=== PATIENT | male | born 1945 | race Caucasian/White ===

== ENCOUNTER → 2020-03-12 12:30 | Outpatient (BNVA) | payer MEDICARE, OTHER, SELFPAY | PROVIDERS: PCP Internal Medicine; Referring Provider Internal Medicine; Visit Provider Internal Medicine Cardiovascular Disease | DX: I25.10 Atherosclerotic heart disease of native coronary artery without angina pectoris (principal); I42.8 Other cardiomyopathies; Z98.61 Coronary angioplasty status | CPT/HCPCS: 99214 ==

== ENCOUNTER 2020-03-28 08:22 | Outpatient (REF) | payer SELFPAY | END 2020-03-28 08:23 | disposition home or self-care (01) | LOC: HO.HAP 08:22 | PROVIDERS: PCP Internal Medicine; Referring Provider Internal Medicine; Visit Provider Internal Medicine | DX: Z46.1 Encounter for fitting and adjustment of hearing aid (principal) | CPT/HCPCS: 92700 ==

== ENCOUNTER → 2020-05-14 12:47 | Outpatient (BNVA) | payer MEDICARE, OTHER, SELFPAY | PROVIDERS: PCP Internal Medicine; Visit Provider Internal Medicine Cardiovascular Disease | DX: I25.10 Atherosclerotic heart disease of native coronary artery without angina pectoris (principal); I10 Essential (primary) hypertension; Z98.61 Coronary angioplasty status; I49.3 Ventricular premature depolarization | CPT/HCPCS: 99212 ==

== ENCOUNTER 2020-06-04 13:19 | Outpatient (REF) | payer MEDICARE, OTHER, SELFPAY ==
--- NOTE | 2020-06-05 10:07 | MHC.AU.P13 ---
Adult Audiological Evaluation Date of Visit: 06/04/20 Reason for Appointment: Long-standing history of mixed hearing loss. Patient arrives to determine if there has been a change in hearing. Previous Hearing Test Results: At this clinic on 05/14/2019- Moderately-severe to profound mixed hearing loss bilaterally Ear History: Recent Ear Drainage: None Reported Recent Ear Pain: None Reported Family History of Hearing Loss?: Yes Previous Ear Surgery: Tympanic membrane repair Blocked/Full Sensation in Ear(s): None Reported Medical History: Medical History: Diabetes Hearing Instrument History- Right Ear: Child Welfare Counselor: Phonak Model: [place] SP Serial Number: [id number] Battery Size: 13 Dispensed By: [facility] Hearing Instrument History- Left Ear: Child Welfare Counselor: Phonak Model: Jennifer SP Serial Number: [id number] Battery Size: 13 Dispensed By: [facility] Otoscopy: Right Ear: Unremarkable Left Ear: Unremarkable Tympanometry: Right Ear: Non-compliant Middle Ear System (Type B) Left Ear: Non-compliant Middle Ear System (Type B) Hearing Evaluation: Transducer(s) Used: Insert Earphones Method: Conventional Audiometry Stimuli Used: Pure Tones Right Ear: Description of Hearing: Moderately-severe to profound mixed hearing loss Left Ear: Description of Hearing: Moderately-severe to profound mixed hearing loss Speech Recognition Threshold (SRT): Method Used: Recorded Lists Stimuli Used: Spondee Words Right Ear: 70 dBHL Left Ear: 65 dBHL Word Discrimination: Method: Recorded Lists Word Lists Used: NU-6 Right Ear: 84% at 95 dBHL Left Ear: 96% at 100 dBHL Most Comfortable Level (MCL): Right Ear: 95 dBHL Left Ear: 100 dBHL Comparison: Compared to most recent evaluation: Slight decreases noted around 1-6 kHz bilaterally Recommendations: Audiological re-evaluation in one year. Patient is pleased with his current hearing aid programming; therefore, hearing aid programming was not adjusted today. Hearing aid maintenance was performed.Tubing was in good condition on the right instrument, and was not replaced. Tubing on the left instrument was partially clogged, and was replaced. Hearing aid maintenance in 6 months, or sooner if needed. Diagnosis: Primary Diagnosis: H90.6 Mixed Hearing Loss, Bilateral Services Performed: Services Performed: Comprehensive Audiological Evaluation (CPT 04216), Tympanometry (CPT 15255) Signature: Provider: Kingston Lloyd, CCC-A
== END 2020-06-04 13:20 | disposition home or self-care (01) ==
LOC: HO.SH 13:19
PROVIDERS: Visit Provider Internal Medicine
DX: H90.6 Mixed conductive and sensorineural hearing loss, bilateral (principal)
CPT/HCPCS: 92557; 92567

== ENCOUNTER → 2020-09-17 13:04 | Outpatient (BNVA) | payer MEDICARE, OTHER, SELFPAY | PROVIDERS: PCP Internal Medicine; Visit Provider Internal Medicine Cardiovascular Disease | DX: I25.10 Atherosclerotic heart disease of native coronary artery without angina pectoris (principal); I49.3 Ventricular premature depolarization; I10 Essential (primary) hypertension | CPT/HCPCS: 99212 ==

== ENCOUNTER 2020-12-24 11:13 | Outpatient (REF) | payer MEDICARE, OTHER, SELFPAY ==
[2020-12-24 13:56] LABS: MANUAL DIFF FLAG NO
[2020-12-24 14:04] LABS: Basophils Percent Auto 0.4 % (0-2); Eosinophils Absolute Auto 0.3 X10*3/uL (0.0-0.4); Eosinophils Percent Auto 5.2 % (0-4); Hematocrit 38.1 % (42-52); Hemoglobin 11.9 g/dl (14.0-18.0); Imm Gran Abs Auto 0.02 X10*3/uL (0.00-0.03); Imm Gran Pct Auto 0.4 % (0.0-0.4); Immature Retic Fraction 10.7 % (2.3-13.4); Lymphocytes Absolute Auto 0.7 X10*3/uL (1.2-4.9); Lymphocytes Percent Auto 14.9 % (20-40); Mean Corpuscular HGB Conc 31.2 g/dl (31.0-36.0); Mean Corpuscular Hemoglobin 29.6 pg (27.0-33.0); Mean Corpuscular Volume 94.8 fL (80-98); Mean Platelet Volume 11.1 fL (9.4-12.4); Monocytes Absolute Auto 0.4 X10*3/uL (0.1-1.2); Monocytes Percent Auto 8.7 % (2-11); Neutrophils Absolute Auto 3.5 X10*3/uL (2.0-8.3); Neutrophils Percent Auto 70.4 % (45-73); Platelet Count 240 X10*3/uL (160-400); Red Blood Count 4.02 X10*6/uL (4.60-5.80); Red Cell Distribution Width 14.5 % (11.0-16.0); Retic HGB Equivalent 33.3 pg (30.0-35.0); Reticulocyte Percent 1.1 % (0.5-1.8); Reticulocytes Absolute 0.044 X10*6/uL (0.026-0.095)
[2020-12-24 14:13] LABS: Estimated Average Glucose 123 mg/dL; Hemoglobin A1c % 5.9 %
[2020-12-24 14:15] LABS: Creatinine Urine 131.74 mg/dL; Microalbum/Creatinine Ratio Ur 8.3 ug/mg cr
[2020-12-24 14:25] LABS: Alanine Aminotransferase 15 U/L (0-40); Albumin Level 4.1 g/dL (3.5-5.0); Alkaline Phosphatase 51 U/L (39-117); Anion Gap 12 (12-20); Aspartate Amino Transferase 23 U/L (5-37); Bilirubin Total 0.5 mg/dL (0.0-1.0); Blood Urea Nitrogen 21 mg/dL (9-16); Calcium 9.5 mg/dL (8.4-10.2); Carbon Dioxide 26 mmol/L (22-29); Chloride 106 mmol/L (96-108); Cholesterol 132 mg/dL; Estimated Glomerular Filt Rate 47; Glucose Random 89 mg/dL (60-115); HDL Cholesterol 45 mg/dL; Iron 64 mcg/dL (45-160); LDL Cholesterol Calculated 68 mg/dl; Percent Iron Saturation 17 % (15-50); Potassium 4.7 mmol/L (3.3-5.1); Sodium 139 mmol/L (135-145); Total Iron Binding Capacity 366 mcg/dL (228-428); Total Protein 6.2 g/dL (6.5-8.0); Triglycerides 99 mg/dL; Unsaturated Iron Binding 302 ug/dL
[2020-12-24 14:37] LABS: Ferritin 61 ng/mL (20-250); Free T4 (Free Thyroxine) 0.98 ng/dL (0.71-1.85); Thyroid Stimulating Hormone 0.68 uIU/mL (0.32-4.0)
[2020-12-24 14:54] LABS: Folate > 20.0 ng/mL (> or = 4.0); Vitamin B12 384 pg/mL (200-900)
== END 2020-12-24 11:14 | disposition home or self-care (01) ==
LOC: HO.HMGCLDS 11:13
PROVIDERS: PCP Internal Medicine; Visit Provider Internal Medicine
DX: E78.00 Pure hypercholesterolemia, unspecified (principal); E11.65 Type 2 diabetes mellitus with hyperglycemia; I10 Essential (primary) hypertension
CPT/HCPCS: 36415; 80053; 80061; 82043; 82607; 82728; 82746; 83036; 83540; 84439; 84443; 85025; 85045

== ENCOUNTER 2021-01-21 08:20 | Outpatient (REF) | payer MEDICARE, OTHER, SELFPAY ==
[2021-01-21 09:48] LABS: COVID-19 Test Positive (Negative)
== END 2021-01-21 08:21 | disposition home or self-care (01) ==
LOC: HO.LAB 08:20
PROVIDERS: PCP Internal Medicine; Visit Provider Internal Medicine
DX: Z20.822 Contact with and (suspected) exposure to COVID-19 (principal)
CPT/HCPCS: 36415; 87635; C9803

== ENCOUNTER 2021-01-30 12:41 | Outpatient (REF) | payer MEDICARE, OTHER, SELFPAY ==
[2021-01-30 12:59] LABS: COVID-19 Test Positive (Negative)
== END 2021-01-30 12:42 | disposition home or self-care (01) ==
LOC: HO.LAB 12:41
PROVIDERS: PCP Internal Medicine; Visit Provider Internal Medicine
DX: Z20.822 Contact with and (suspected) exposure to COVID-19 (principal)
CPT/HCPCS: 36415; 87635; C9803

== ENCOUNTER 2021-02-03 08:03 | Outpatient (REF) | payer MEDICARE, OTHER, SELFPAY ==
[2021-02-03 08:27] LABS: COVID-19 Test Positive (Negative)
== END 2021-02-03 08:04 | disposition home or self-care (01) ==
LOC: HO.LAB 08:03
PROVIDERS: PCP Internal Medicine; Visit Provider Internal Medicine
DX: Z20.822 Contact with and (suspected) exposure to COVID-19 (principal)
CPT/HCPCS: 36415; 87635; C9803

== ENCOUNTER → 2021-02-04 11:09 | Outpatient (BNVA) | payer MEDICARE, OTHER, SELFPAY | PROVIDERS: PCP Internal Medicine; Visit Provider Internal Medicine Cardiovascular Disease | DX: I25.10 Atherosclerotic heart disease of native coronary artery without angina pectoris (principal) | CPT/HCPCS: Q3014 ==

== ENCOUNTER 2021-02-20 07:55 | Outpatient (REF) | payer MEDICARE, OTHER, SELFPAY ==
--- NOTE | 2021-02-23 12:13 | MHC.AU.AHA ---
Adult Audiological Evaluation Date of Visit: 02/20/21 Tube Mounter Used: Not Applicable Reason for Appointment: Audiologic re-evaluation prior to obtaining new hearing aids per state regulation. Deondre also reports his states he is asking for speech to be repeated more often. Previous Hearing Test Results: 06/04/2020 [facility] Bilateral moderately-severe to profound mixed hearing loss. It is noted overall hearing thresholds had decreased 5-15 dB compared to testing performed on 05/14/2019. Ear History: Family History of Hearing Loss?: Yes History of Ear Wax Buildup: Yes Previous Ear Surgery: Tympanic membrane repair Medical History: Medical History: Diabetes, Heart Problems, High Blood Pressure Medication List: Vitamins D3 and B12, Folic Acid, Aspirin, Amlodipine, Atorvastatin, Clopidogrel, Fenofibrate, Pregabalin, Metformin, Pioglitazone Hearing Instrument History- Right Ear: Fur Grader: [place] Model: [place] SP Serial Number: [id number] Battery Size: 13 Repair Warranty: Dispensed By: [facility] Hearing Instrument History- Left Ear: Fur Grader: Phonak Model: [place] SP Serial Number: [id number] Battery Size: 13 Repair Warranty: Dispensed By: [facility] Otoscopy: Right Ear: Very dull tympanic membrane Left Ear: Very dull tympanic membrane Tympanometry: Tympanometry performed due to: History of middle ear dysfunction Right Ear: Non-compliant Middle Ear System (Type B) Left Ear: Non-compliant Middle Ear System (Type B) Hearing Evaluation: Transducer(s) Used: Circumaural Headphones Bone Conduction Method: Conventional Audiometry Stimuli Used: Pure Tones Right Ear: Description of Hearing: Moderately-severe to profound mixed hearing loss. Left Ear: Description of Hearing: Moderately-severe to profound mixed hearing loss. Speech Recognition Threshold (SRT): Method Used: Monitored Live Voice Stimuli Used: Spondee Words Right Ear: 50 dB HL Left Ear: 50 dB HL Word Discrimination: Method: Recorded Lists Word Lists Used: NU-6 Right Ear: 96% at 90 dB HL Left Ear: 92% at 90 dB HL Most Comfortable Level (MCL): Right Ear: 90 dB HL Left Ear: 90 dB HL Comparison: Compared to the most recent evaluation: Thresholds have improved bilaterally with stable speech understanding. Middle ear dysfunction persists bilaterally. Recommendations: - Follow-up with physician for cerumen removal. - Discussed trial period with binaural Phonak Audeo P 50-13T hearing aids. Deondre will schedule an appointment for a Hearing Aid Evaluation following cerumen removal to further discuss the recommended hearing aids and place the order. - Medical clearance from a physician is required before fitting. - Hearing aid maintenance performed today. - Hearing aid(s) reprogrammed with updated test results. - Audiological re-evaluation in one year. Will send a reminder card. Diagnosis: Primary Diagnosis: H90.6 Mixed Hearing Loss, Bilateral Secondary Diagnosis: H69.93 Unspecified Eustachian Tube Dysfunction, Bilateral Services Performed: Comprehensive Audiological Evaluation (CPT 91680) Tympanometry (CPT 73631) Signature: Provider: Kingston Kirkpatrick, CCC-A
--- NOTE | 2021-02-23 12:19 | MHC.AU.MED ---
Medical Clearance for Hearing Instrumentation Date: 02/23/21 Patient Name: Deondre Stein Date of : 1945 Primary Care Provider: Referring Provider: Elida Siddiqui MD We have seen your patient on 02/20/21 and have determined that they are a candidate for amplification (See accompanying report). Specifically, they would benefit from: Hearing aid use in both ears There is a statute that addresses Medical Evaluation Requirements prior to fitting a patient with a hearing aid. According to [place] statute 265 CMR:6.03(1), (a) General. Except as provided in 265 CMR 6.03(1)(b), a supervisor wool shearing shall not sell a hearing aid unless the prospective user has presented to the supervisor wool shearing a written statement signed by a licensed physician that states that the patient's hearing loss has been medically evaluated and the patient may be considered a candidate for a hearing aid. The medical evaluation must have taken place within the preceding six months. Please note: Due to the [place] Statute referenced above, we cannot accept a signature other than that of a licensed physician. TRACK REPAIR LABORER and PA signatures cannot be accepted. I am in agreement with the above recommendation. There is no medical contraindication for hearing instrumentation. Physician Signature Date Physician Name (Printed)
--- NOTE | 2021-02-23 12:24 | MHC.AU.HFU ---
Hearing Instrument Follow-Up- Binaural Date of Visit: 02/20/21 Right Ear: Card Mounter: Phonak Jennifer SP Serial Number: [id number] Repair Warranty: Battery Size: 13 Color: Beige Tubing: Tube lock Type of Mold: Microsonic skeleton Dispensed By: [facility] Left Ear: Card Mounter: Phonak Jennifer SP Serial Number: [id number] Repair Warranty: Battery Size: 13 Color: Beige Tubing: Tube lock Type of Mold: Microsonic skeleton mold Dispensed By: [facility] Follow-Up Summary: Cleaned hearing aids, microphones, and contacts. Changed tubes for both aids. Both amplifying well. Reprogrammed both aid to today's test results. *Advise cerumen removal by a physician. Sent medical clearance to PCP. *Discussed trial with binaural Phonak Audeo P 50-13T. Deondre will schedule HAE for after cerumen is removed for ear impressions and confirm order. Diagnosis Code(s): Primary Diagnosis: H90.6 Mixed Hearing Loss, Bilateral Secondary Diagnosis: H69.93 Unspecified Eustachian Tube Dysfunction, Bilateral Signature: Provider: Kingston Kirkpatrick, CCC-A
== END 2021-02-20 07:56 | disposition home or self-care (01) ==
LOC: HO.SH 07:55
PROVIDERS: Visit Provider Internal Medicine
DX: H90.6 Mixed conductive and sensorineural hearing loss, bilateral (principal); H69.93 Unspecified Eustachian tube disorder, bilateral
CPT/HCPCS: 92557; 92567

== ENCOUNTER 2021-03-02 09:21 | Outpatient (REF) | payer SELFPAY ==
--- NOTE | 2021-03-02 10:15 | MHC.AU.HAS ---
Hearing Aid Evaluation Date of Visit: 03/02/21 Historical Information: Description of Hearing: Bilateral moderately-severe to profound mixed hearing loss Current personal amplification information, if applicable: 2011 binaural Phonak Anderson SP BTEs with skeleton Microsonic earmolds Summary: Discussed hearing aid styles of BTE vs KEL aid, level of technology, and battery vs. rechargeable. Patient will trial the aids below. Took impressions of both ears without complication. Hearing Aid Prescription: Right ear: Filleter: Phonak Model: Audeo P 50-13T Battery Size: 13 Color: Champagne Gallery [employer] Museum Technician: #1 Power Type of Mold: Phonak Canal Lock C-Shell Left ear: Filleter: Phonak Model: Audeo P 50-13T Battery Size: 13 Color: Champagne [employer] Museum Technician: #1 Power Type of Mold: Phonak Canal Lock C-Shell Plan of Care: Patient wishes to purchase hearing aids as prescribed Action Taken/Action Needed: Earmold Impressions Taken Hearing Instrument Fitting to be scheduled when materials arrive Comments: Medical clearance signed electronically by PCP and in chart Primary Diagnosis: H90.6 Mixed Hearing Loss, Bilateral Secondary Diagnosis: H69.93 Unspecified Eustachian Tube Dysfunction, Bilateral Signature: Provider: Kingston Kirkpatrick, CCC-A
== END 2021-03-02 09:22 | disposition home or self-care (01) ==
LOC: HO.HAP 09:21
PROVIDERS: Visit Provider Internal Medicine
DX: Z46.1 Encounter for fitting and adjustment of hearing aid (principal); H69.93 Unspecified Eustachian tube disorder, bilateral
CPT/HCPCS: 92591

== ENCOUNTER 2021-03-20 08:55 | Outpatient (REF) | payer SELFPAY | END 2021-03-20 08:56 | disposition home or self-care (01) | LOC: HO.HAP 08:55 | PROVIDERS: Visit Provider Internal Medicine | DX: Z46.1 Encounter for fitting and adjustment of hearing aid (principal); H90.6 Mixed conductive and sensorineural hearing loss, bilateral; H69.93 Unspecified Eustachian tube disorder, bilateral | CPT/HCPCS: V5261 ==

== ENCOUNTER 2021-04-03 09:50 | Outpatient (REF) | payer SELFPAY ==
--- NOTE | 2021-04-03 12:20 | MHC.AU.HFU ---
Hearing Instrument Follow-Up- Binaural Date of Visit: 04/03/21 Right Ear: Blade Aligner: Phonak Model: Audeo P 50-13T Serial Number: [id number] Repair Warranty: 06/13/2024 Loss and Damage Warranty: 06/13/2024 Battery Size: 13 Color: Market Force Informationagne Engineering Administrator: #1 Power Type of Dome: Type of Mold: Phonak Canal Lock C-Shell # [id number] warranty 07/15/2021 Type of Wax Guard: CeruStop Dispensed By:[facility] Date of Fittin03/20/2021 Left Ear: Blade Aligner: Phonak Model: Audeo P 50-13T Serial Number: [id number] Repair Warranty: 06/13/2024 Loss and Damage Warranty: 06/13/2024 Battery Size: 13 Color: Market Force Informationagne Engineering Administrator: #1 Power Type of Dome: Type of Mold: Phonak Canal Lock C-Shell # [id number] warranty 07/15/2021 Type of Wax Guard: CeruStop Dispensed By: [facility] Date of Fittin03/20/2021 Follow-Up Summary: Two Week hearing aid follow-up. Patient reports overall he is doing well, just needs a few adjustments. 1) He is always increasing the volume 2 steps louder. - Increased overall gain for both aids 4 dB. 2) Left aid is not as loud and clear as the right. Increased the left aid to better match the right aid. Patient reports he is hearing OK, just the sound quality is different than right aid He wants to keep as set since he feels when both aids are on that he hears well. 3) Gets an echo when he speaks, particularly when reading out loud. Discussed the room acoustics will affect this echo sensation - Used [employer] for the Chkqyr-kn-Ttifj and Lxqzfkp-dc-Rlzga programs to decrease echo sensation 2 steps. 4) Paired aids to cell phone and practiced. Patient did not want to download the Xendo melvin at this time. Patient wants to keep the aids and will set up a payment plan for the balance. Recommendations: Hearing instrument follow-up or maintenance as needed. Please contact our clinic with any questions or concerns Diagnosis Code(s): Primary Diagnosis: H90.3 Bilateral Sensorineural Hearing Loss Secondary Diagnosis: H69.93 Unspecified Eustachian Tube Dysfunction, Bilateral Services Performed: GONSALEZ Non-Quantity Charges: HANC: NonBillable Event Signature: Provider: Kingston Kirkpatrick, RIC-A
== END 2021-04-03 09:51 | disposition home or self-care (01) ==
LOC: HO.HAP 09:50
PROVIDERS: Visit Provider Internal Medicine
DX: Z13.89 Encounter for screening for other disorder (principal)

== ENCOUNTER → 2021-04-08 13:32 | Outpatient (REF) | payer MEDICARE, OTHER, SELFPAY ==
--- NOTE | 2021-04-08 | ECG_ITS ---
Hook-up date: 2021-04-08 15:17:00 Duration: 43:30:00 Test Indications: PVC'S Medications: 99680 QRS complexes 02991 Ventricular ectopics which represent 15 % of total QRS comp. 349 Supraventricular ectopics which represent <1 % of total QRS comp. * Paced QRS complexs which represent % of total QRS comp. VENTRICULAR ECTOPY 32791 Isolated 5551 Bigeminal Cycles 333 Couplets 0 Runs 0 Beats in Runs 0 Beats LONGEST at 0 BPM at :: -- 0 Beats FASTEST at 0 BPM at :: -- SUPRAVENTRICULAR ECTOPY 303 Isolated 7 Couplets 7 Runs 32 Beats in Runs 9 Beats LONGEST at 141 BPM at 06:02:08 2021-04-09 5 Beats FASTEST at 166 BPM at 18:39:53 2021-04-08 HEART RATES 50 MIN at 00:05:43 2021-04-09 70 AVG 99 MAX at 14:15:50 2021-04-09 LONGEST RR 1.2800 secs at 22:28:38 2021-04-08 S-T LEVELS Channel 1 - 128 mm at 15:17:00 2021-04-08 - 128 mm at 15:17:00 2021-04-08 Channel 2 - 128 mm at 15:17:00 2021-04-08 - 128 mm at 15:17:00 2021-04-08 Channel 3 - 128 mm at 03:43:61 -- - 128 mm at 03:43:61 Basic rhythm Normal sinus rhythm No long pause or profound bradycardia Baseline BBB noted Frequent Premature ventricular complexes , 15% of total beats Occasional Premature atrial complexes Patient did not report any symptoms in the diary Referred By: Reji Jackson Overread By: CHRIS COLES MD
== END ==
LOC: HO.CARD 13:32
PROVIDERS: PCP Internal Medicine; Referring Provider Internal Medicine; Visit Provider Internal Medicine Cardiovascular Disease
DX: I25.10 Atherosclerotic heart disease of native coronary artery without angina pectoris (principal); I49.3 Ventricular premature depolarization; I10 Essential (primary) hypertension; Z79.899 Other long term (current) drug therapy
CPT/HCPCS: 93005; 93226; 99212

== ENCOUNTER 2021-05-01 08:51 | Outpatient (REF) | payer SELFPAY | END 2021-05-01 08:52 | disposition home or self-care (01) | LOC: HO.HAP 08:51 | PROVIDERS: Visit Provider Internal Medicine | DX: Z13.89 Encounter for screening for other disorder (principal) ==

== ENCOUNTER 2021-05-13 15:13 | Outpatient (REF) | payer SELFPAY | END 2021-05-13 15:14 | disposition home or self-care (01) | LOC: HO.HAP 15:13 | PROVIDERS: Visit Provider Internal Medicine | DX: Z13.89 Encounter for screening for other disorder (principal) ==

== ENCOUNTER 2021-05-25 10:23 | Outpatient (REF) | payer SELFPAY ==
--- NOTE | 2021-05-25 10:59 | MHC.AU.FUR ---
Hearing Instrument Follow-Up Date of Visit: 05/25/21 Right Ear: Tariff Publishing Agent: Phonak Model: Audeo P 50-13T Serial Number: [id number] Repair Warranty: 06/13/2024 Loss and Damage Warranty: 06/13/2024 Battery Size: 13 Color: Jonniee Dairy Nutritionist: #1 Power Type of Mold: Phonak Canal Lock C-Shell # [id number] warranty 07/15/2021 Type of Wax Guard: CeruStop Dispensed By: [facility] Date of Fittin03/20/2021 Follow-Up Summary: Right C-Shell continues to hurt when inserting and removing the mold on the outer right side to bottom of canal. Ground down three areas of slight protrusions on the mold. Patient reported the mold was easier to insert than before. Will try and schedule appointment if problem continues. Diagnosis Code(s): Primary Diagnosis: H90.3 Bilateral Sensorineural Hearing Loss Secondary Diagnosis: H69.93 Unspecified Eustachian Tube Dysfunction, Bilateral Services Performed: GONSALEZ Non-Quantity Charges: HANC: NonBillable Event Signature: Provider: Kingston Kirkaptrick, CCC-A
== END 2021-05-25 10:24 | disposition home or self-care (01) ==
LOC: HO.HAP 10:23
PROVIDERS: Visit Provider Internal Medicine
DX: Z13.89 Encounter for screening for other disorder (principal)

== ENCOUNTER 2021-06-05 13:03 | Outpatient (REF) | payer SELFPAY ==
--- NOTE | 2021-06-05 13:36 | MHC.AU.FUR ---
Hearing Instrument Follow-Up Date of Visit: 06/05/21 Right Ear: Transportation Engineering Technician: Phonak Model: Audeo P 50-13T Serial Number: [id number] Repair Warranty: 06/13/2024 Battery Size: 13 Color: Champagne Pony Edger: #1 Power Type of Mold: Phonak Canal Lock C-Shell # [id number] warranty 07/15/2021 Type of Wax Guard: CeruStop Dispensed By: [facility] Date of Fittin03/20/2021 Follow-Up Summary: Right C-Shell continues to cause pain when inserting and removing (harder to insert compared to left c-shell). Took new impression of the right ear without complication for another remake to reduce overall size, taper, and possibly change to step back vent as the left c-shell is. Sent current c-shell with impression and put a power #1 excavating supervisor with medium power dome of the right aid and ordered replacement for stock. Recommendations (Other): Schedule appointment when c-shell remake in. Diagnosis Code(s): Primary Diagnosis: H90.3 Bilateral Sensorineural Hearing Loss Secondary Diagnosis: H69.93 Unspecified Eustachian Tube Dysfunction, Bilateral Services Performed: GONSALEZ Non-Quantity Charges: HANC: NonBillable Event Signature Kingston Kirkpatrick, CCC-A
== END 2021-06-05 13:04 | disposition home or self-care (01) ==
LOC: HO.HAP 13:03
PROVIDERS: Visit Provider Internal Medicine
DX: Z13.89 Encounter for screening for other disorder (principal)

== ENCOUNTER 2021-06-22 12:53 | Outpatient (REF) | payer SELFPAY | END 2021-06-22 12:54 | disposition home or self-care (01) | LOC: HO.HAP 12:53 | PROVIDERS: Visit Provider Internal Medicine | DX: Z13.89 Encounter for screening for other disorder (principal) ==

== ENCOUNTER → 2021-07-06 14:21 | Outpatient (BNVA) | payer MEDICARE, OTHER, SELFPAY | PROVIDERS: PCP Internal Medicine; Referring Provider Internal Medicine; Visit Provider Internal Medicine Cardiovascular Disease | DX: I25.10 Atherosclerotic heart disease of native coronary artery without angina pectoris (principal); I49.3 Ventricular premature depolarization; I10 Essential (primary) hypertension | CPT/HCPCS: 99212 ==

== ENCOUNTER → 2021-07-13 14:44 | Outpatient (REF) | payer MEDICARE, OTHER, SELFPAY ==
--- NOTE | 2021-07-13 14:54 | CA_ITS ---
Transthoracic Echocardiogram Patient (Last, First, Middle): Deondre Stein A Gender: Male Date of : 1945 Age: 75 Procedure Date: 07/13/2021 Procedure Type: Transthoracic Echocardiogram Location: OP Height: 167.64 cm Weight: 79.38 kg BSA: 1.89 m2 Heart Rate: bpm BP: 126 / 64 mmHg Inside Sales Account Manager: CRISTOPHER Referring MD: Reji Jackson MD Symptoms: I25.10 - Atherosclerotic heart disease of [place] coronary... Study Quality: Fair Conclusions: - Normal left ventricular size, thickness, and systolic function. The visually estimated ejection fraction is between 55-60%. - Normal right ventricular cavity size and systolic function. - Patient appears to be in atrial fibrillation. Findings Left Ventricle Normal left ventricular size, thickness, and systolic function. The visually estimated ejection fraction is between 55-60%. There is no evidence of regional wall motion abnormalities. Diastolic function is indeterminate on the basis of available data. Right Ventricle Normal right ventricular cavity size and systolic function. Atria Mild biatrial enlargement. Aortic Valve Normal aortic valve structure and function. There is no aortic valve stenosis. There is no aortic valve regurgitation. Mitral Valve Normal mitral valve structure and function. There is no mitral valve regurgitation. There is no mitral valve stenosis. Pulmonic Valve The pulmonic valve is likely normal. Tricuspid Valve Normal tricuspid valve structure and function. There is trace tricuspid valve regurgitation. Normal right atrial pressure. There is no evidence of pulmonary hypertension. Great Vessels All visible segments of the aorta are normal in size. The visualized portions of the pulmonary artery and branches are normal. Venous The inferior vena cava is normal in size and collapses greater than 50% with inspiration. Pericardium/Pleural There is no evidence of pericardial effusion. Measurements 2D Linear Measurements IVSd: 0.78 0.6-0.9/0.6-1.0 cm LVIDd: 5.58 3.9-5.3/4.2-5.9 cm LVIDd Index: 2.95 2.4-3.2/2.2-3.1 cm/m2 LVIDs: 4.34 2.0-3.6 cm LVPWd: 1.21 0.7-1.1 cm Ao Root: 3.70 2.1-3.5 cm LA Diam: 3.50 2.7-3.8/3.0-4.0 cm LAIDs Index: 1.85 1.5-2.3 cm/m2 LV Mass: 269.74 67-162/88-224 g LV Mass Index: 142.72 43-95/49-115 g/m2 LVOT Diam: 2.20 3.0+(-)1.3 cm 2D Systolic Function EF 4C: 55.90 >55% EF 2C: 54.10 >55% EF BiP: 54.30 >55% Mitral Valve MV Pk E: 0.92 MV PK A: 0.76 MV Decel Time: 194.00 E/A: 1.20 E'Lateral: 8.27 E'Medial: 5.33 E/E' Med: 17.20 E/E' Lat: 11.10 PHT: 57.00 MVA PHT: 3.86 Decel [place]: 4.74 Aortic Valve AoV Pk [place]: 1.07 AoV Mn [place]: 0.79 AoV VTI: 0.28 AoV Pk Grad: 5.00 Aov Mn Grad: 3.00 JAMEL Cont.VTI: 3.70 LVOT LVOT Pk [place]: 1.04 LVOT Mn [place]: 0.73 LVOT VTI: 0.27 LVOT Pk Grad: 4.00 LVOT Mn Grad: 2.00 LVOT Diam: 2.20 LVOT Area: 3.80 Diastolic Function MV Pk E: 0.92 MV Pk A: 0.76 E/A: 1.20 E'Medial: 5.33 E/E' Med: 17.20 E' Laterial: 8.27 E/E' Lat: 11.10 Right Ventricle TAPSE (mm): 25.30 TVS' Clinton: 12.00 Tricuspid Valve TR Pk [place]: 2.41 TR Pk Grad: 23.00 RA Press: 3.00 RVSP: 26.00 Great Vessels Aorta Ao Root-2D: 3.70 2.0-3.7 cm Ao Asc: 3.10 2.1-3.4 cm Ao Arch: 3.20 Updated in Other Vendor System with Status of Final Reji Jackson MD electronically signed on 07/13/2021 7:08:37 PM with status of Final
[2021-07-13 15:29] LABS: Hematocrit 35.7 % (42.0-52.0); Hemoglobin 11.3 g/dl (14.0-18.0); Mean Corpuscular HGB Conc 31.7 g/dl (31.0-36.0); Mean Corpuscular Hemoglobin 29.1 pg (27.0-33.0); Mean Platelet Volume 11.4 fL (9.4-12.4); Platelet Count 231 X10*3/uL (160-400); Red Blood Count 3.88 X10*6/uL (4.60-5.80); Red Cell Distribution Width 14.4 % (11.0-16.0); White Blood Count 5.6 X10*3/uL (4.8-10.8)
[2021-07-13 15:36] LABS: INTERNATIONAL NORM RATIO 1.1 (0.9-1.1)
[2021-07-13 15:55] LABS: Anion Gap 11 (12-20); Blood Urea Nitrogen 28 mg/dL (9-16); Calcium 9.8 mg/dL (8.4-10.2); Carbon Dioxide 28 mmol/L (22-29); Chloride 109 mmol/L (96-108); Estimated Glomerular Filt Rate 40; Glucose Random 84 mg/dL (60-115); Potassium 4.5 mmol/L (3.3-5.1); Sodium 143 mmol/L (135-145)
== END ==
LOC: HO.CARD 14:44
PROVIDERS: PCP Internal Medicine; Visit Provider Internal Medicine Cardiovascular Disease
DX: I25.10 Atherosclerotic heart disease of native coronary artery without angina pectoris (principal)
CPT/HCPCS: 36415; 80048; 85027; 85610; 93306

== ENCOUNTER → 2021-07-16 15:22 | Outpatient (BNVA) | payer MEDICARE, OTHER, SELFPAY | PROVIDERS: PCP Internal Medicine; Referring Provider Internal Medicine; Visit Provider Internal Medicine Cardiovascular Disease | DX: Z13.89 Encounter for screening for other disorder (principal) ==

== ENCOUNTER → 2021-08-05 11:22 | Outpatient (REF) | payer MEDICARE, OTHER, SELFPAY ==
--- NOTE | 2021-08-05 11:25 | HM_ITS ---
Conclusion: 1. Patient was monitored for total period of 5 days and 23 hours 2. Baseline numbers normal sinus rhythm with average heart of 70 beats per minute 3. No significant pauses or bradycardia noted 4. Total of 114 3 beat salvos of nonsustained VT, with fastest at 184 beats per minute 5. Frequent episodes of supraventricular tachycardia with longest episode lasting 16 beats 6. Total of 151,025 PVCs accounting for 21.5% of total burden account for very frequent PVCs 7. No patient reported events MTDD
== END ==
LOC: HO.CARD 11:22
PROVIDERS: Visit Provider Internal Medicine
DX: I48.91 Unspecified atrial fibrillation (principal)
CPT/HCPCS: 93242

== ENCOUNTER 2021-08-27 15:57 | Outpatient (REF) | payer MEDICARE, OTHER, SELFPAY ==
[2021-08-27 16:36] LABS: Hemoglobin 11.1 g/dl (14.0-18.0); Mean Corpuscular HGB Conc 31.7 g/dl (31.0-36.0); Mean Corpuscular Hemoglobin 30.3 pg (27.0-33.0); Mean Corpuscular Volume 95.6 fL (80.0-98.0); Mean Platelet Volume 11.8 fL (9.4-12.4); Platelet Count 216 X10*3/uL (160-400); Red Blood Count 3.66 X10*6/uL (4.60-5.80); Red Cell Distribution Width 15.5 % (11.0-16.0); White Blood Count 5.5 X10*3/uL (4.8-10.8)
[2021-08-27 16:42] LABS: INTERNATIONAL NORM RATIO 1.1 (0.9-1.1); Prothrombin Time 12.2 SEC (9.9-13.0)
[2021-08-27 17:02] LABS: Anion Gap 9 (12-20); Blood Urea Nitrogen 30 mg/dL (9-16); Calcium 9.8 mg/dL (8.4-10.2); Carbon Dioxide 30 mmol/L (22-29); Chloride 109 mmol/L (96-108); Estimated Glomerular Filt Rate 37; Glucose Random 73 mg/dL (60-115); Potassium 5.1 mmol/L (3.3-5.1); Sodium 143 mmol/L (135-145)
[2021-08-27 17:22] LABS: TSH reflex Free T4 1.82 uIU/mL (0.32-4.0)
== END 2021-08-27 15:58 | disposition home or self-care (01) ==
LOC: HO.LAB 15:57
PROVIDERS: PCP Internal Medicine; Visit Provider Internal Medicine Cardiovascular Disease
DX: I25.10 Atherosclerotic heart disease of native coronary artery without angina pectoris (principal)
CPT/HCPCS: 36415; 80048; 84443; 85027; 85610

== ENCOUNTER → 2021-09-21 11:34 | Outpatient (BNVA) | payer MEDICARE, OTHER, SELFPAY | PROVIDERS: PCP Internal Medicine; Referring Provider Internal Medicine; Visit Provider Internal Medicine Cardiovascular Disease | DX: I25.10 Atherosclerotic heart disease of native coronary artery without angina pectoris (principal); I49.3 Ventricular premature depolarization; R06.00 Dyspnea, unspecified; Z79.899 Other long term (current) drug therapy | CPT/HCPCS: 93005; 99212 ==

== ENCOUNTER → 2021-09-28 08:51 | Outpatient (REF) | payer MEDICARE, OTHER, SELFPAY ==
--- NOTE | 2021-09-28 09:37 | ECG_ITS ---
Hook-up date: 2021-09-28 09:03:00 Duration: 46:19:00 Test Indications: VENTRICULAR PREMATURE DEPOLARIZA Medications: 01153 QRS complexes 735 Ventricular ectopics which represent <1 % of total QRS comp. 131 Supraventricular ectopics which represent <1 % of total QRS comp. * Paced QRS complexs which represent % of total QRS comp. VENTRICULAR ECTOPY 675 Isolated 30 Bigeminal Cycles 30 Couplets 0 Runs 0 Beats in Runs * Beats LONGEST at * BPM at :: -- * Beats FASTEST at * BPM at :: -- SUPRAVENTRICULAR ECTOPY 99 Isolated 4 Couplets 5 Runs 24 Beats in Runs 6 Beats LONGEST at 95 BPM at 08:21:19 2021-09-29 4 Beats FASTEST at 138 BPM at 04:47:54 2021-09-29 HEART RATES 58 MIN at 00:17:44 2021-09-29 65 AVG 90 MAX at 12:30:17 2021-09-28 LONGEST RR 1.3280 secs at 21:00:03 2021-09-28 S-T LEVELS Channel 1 - 128 mm at 09:03:00 2021-09-28 - 128 mm at 09:03:00 2021-09-28 Channel 2 - 128 mm at 09:03:00 2021-09-28 - 128 mm at 09:03:00 2021-09-28 Channel 3 - 128 mm at 02:82:21 -- - 128 mm at 02:82:21 Underlying rhythm is sinus with bundle branch block; Average ventricular rate 65/min; range 58-90/min; Occasional supraventricular ectopy; Occasional ventricular ectopy; isolated beats, some couplets, bigeminy; no signifiacnt runs; overall burden <1%; No pertinent symptoms in patient diary. Referred By: Reji Jackson Overread By: DOUGLAS CLEARY
== END ==
LOC: HO.CARD 08:51
PROVIDERS: PCP Internal Medicine; Referring Provider Internal Medicine; Visit Provider Internal Medicine Cardiovascular Disease
DX: I49.3 Ventricular premature depolarization (principal)
CPT/HCPCS: 93226; 93242

== ENCOUNTER → 2021-10-06 09:24 | Outpatient (BNVA) | payer MEDICARE, OTHER, SELFPAY | PROVIDERS: PCP Internal Medicine; Visit Provider Surgery Vascular Surgery | DX: I77.9 Disorder of arteries and arterioles, unspecified (principal) | CPT/HCPCS: 99202 ==

== ENCOUNTER 2021-10-28 08:28 | Outpatient (REF) | payer MEDICARE, OTHER, SELFPAY ==
--- NOTE | 2021-10-28 09:59 | PFT_ITS ---
Forced vital capacity 63%, FEV1 63%. FEV1/FVC ratio 72, normal. [id number] 61% and MVV is 56%. Post bronchodilator therapy, there is no significant change. Total lung capacity 65%. Residual volume 73%. Diffusion capacity 51% CONCLUSION: These findings are consistent with moderately severe restrictive pulmonary disorder. No obstructive airway disorder is noted. Compared to the results of 10/22/2016, the lung volumes are significantly decreased. Clinical correlation recommended. Leelee Willis MD MSB/MODL / [id number]
== END 2021-10-28 08:29 | disposition home or self-care (01) ==
LOC: HO.RESP 08:28
PROVIDERS: PCP Internal Medicine; Visit Provider Internal Medicine Cardiovascular Disease
DX: R06.00 Dyspnea, unspecified (principal)
CPT/HCPCS: 94060; 94727; 94729

== ENCOUNTER 2021-11-16 06:31 | Outpatient (REF) | payer MEDICARE, OTHER, SELFPAY ==
--- NOTE | ~2021-11-16 | CT_ITS ---
EXAMINATION: CT CHEST WITHOUT CONTRAST CLINICAL INFORMATION: History of COPD. COMPARISON: Left ribs and chest 05/08/2018. TECHNIQUE: 5 mm thin axial and reformatted 3 mm thin sagittal and coronal images of chest were obtained. DLP: 191 mGy-cm. FINDINGS: Lungs: Both lungs are well expanded and clear of acute pneumonic process. There is a 2 mm nodule centrally in the right upper lobe axial image 74/6, a 2 mm nodule right upper lobe peripherally based axial image 86/6. There are minimal atelectatic changes or scarring right lung base. No interstitial thickening, bronchiectasis or groundglass density seen. Mediastinum: The thyroid lobes are symmetric and normal. The central trachea and the bronchi are widely patent. The heart size and the great vessels are normal caliber. There are moderate coronary artery calcifications. No pericardial effusion seen. No abnormal size mediastinal or hilar lymph nodes visualized. Pleura: There is no pleural thickening, calcification or effusion. Axilla: No abnormal axillary lymph nodes seen. The chest wall is unremarkable. Osseous Structures: No aggressive lytic or sclerotic process seen. There is diffuse osteopenia. Upper Abdomen: There are a few punctate hypodense areas seen in the right hepatic lobe. Otherwise rest the visualized liver, spleen, pancreas, contracted gallbladder and bilateral adrenal glands unremarkable. CT/CT chest wo con - High Res IMPRESSION: Mild centrilobular emphysema with minimal scarring/atelectasis right lung base. 2 mm nodules in the right upper lobe. Nonsuspicious. No abnormal mediastinal mass or lymphadenopathy seen.
[2021-11-16 06:54] LABS: MANUAL DIFF FLAG NO
[2021-11-16 07:36] LABS: Basophils Percent Auto 0.6 % (0-2); Eosinophils Absolute Auto 0.3 X10*3/uL (0.0-0.4); Eosinophils Percent Auto 5.8 % (0-4); Hematocrit 37.7 % (42.0-52.0); Hemoglobin 11.6 g/dl (14.0-18.0); Imm Gran Abs Auto 0.03 X10*3/uL (0.00-0.03); Imm Gran Pct Auto 0.6 % (0.0-0.4); Lymphocytes Absolute Auto 0.7 X10*3/uL (1.2-4.9); Lymphocytes Percent Auto 14.2 % (20-40); Mean Corpuscular HGB Conc 30.8 g/dl (31.0-36.0); Mean Corpuscular Hemoglobin 28.5 pg (27.0-33.0); Mean Corpuscular Volume 92.6 fL (80.0-98.0); Mean Platelet Volume 10.9 fL (9.4-12.4); Monocytes Absolute Auto 0.4 X10*3/uL (0.1-1.2); Monocytes Percent Auto 8.6 % (2-11); Neutrophils Absolute Auto 3.6 x10*3/uL (2.0-8.3); Neutrophils Percent Auto 70.2 % (45-73); Platelet Count 249 X10*3/uL (160-400); Red Blood Count 4.07 X10*6/uL (4.60-5.80); Red Cell Distribution Width 15.5 % (11.0-16.0); White Blood Count 5.1 X10*3/uL (4.8-10.8)
[2021-11-16 08:21] LABS: Alanine Aminotransferase 38 U/L (0-40); Albumin Level 4.1 g/dL (3.5-5.0); Alkaline Phosphatase 62 U/L (39-117); Anion Gap 12 (12-20); Aspartate Amino Transferase 39 U/L (5-37); Bilirubin Total 0.3 mg/dL (0.0-1.0); Blood Urea Nitrogen 35 mg/dL (9-16); Calcium 9.1 mg/dL (8.4-10.2); Carbon Dioxide 26 mmol/L (22-29); Chloride 107 mmol/L (96-108); Cholesterol 143 mg/dL; Estimated Glomerular Filt Rate 34; Glucose Fasting 115 mg/dL (60-99); HDL Cholesterol 55 mg/dL; LDL Cholesterol Calculated 73 mg/dl; Potassium 4.5 mmol/L (3.3-5.1); Sodium 140 mmol/L (135-145); Total Protein 6.3 g/dL (6.5-8.0); Triglycerides 77 mg/dL
[2021-11-16 08:22] LABS: Estimated Average Glucose 126 mg/dL
[2021-11-16 08:32] LABS: Prostate Specific Antigen Scr 0.05 ng/mL (<0.05-4.0); Thyroid Stimulating Hormone 1.12 uIU/mL (0.32-4.0)
[2021-11-16 08:34] LABS: Free T4 (Free Thyroxine) 1.13 ng/dL (0.71-1.85)
[2021-11-16 08:54] LABS: Folate 18.8 ng/mL (> or = 4.0); Vitamin B12 363 pg/mL (200-900)
[2021-11-16 08:58] LABS: Creatinine Urine 42.19 mg/dL; Microalbum/Creatinine Ratio Ur 182.5 ug/mg cr
== END 2021-11-16 06:32 | disposition home or self-care (01) ==
LOC: HO.CT 06:31
PROVIDERS: Nurse Practitioner Family; Absent Provider Internal Medicine; PCP Internal Medicine; Visit Provider Internal Medicine Cardiovascular Disease
DX: Z00.00 Encounter for general adult medical examination without abnormal findings (principal); Z12.5 Encounter for screening for malignant neoplasm of prostate; J98.4 Other disorders of lung; E11.65 Type 2 diabetes mellitus with hyperglycemia; E78.00 Pure hypercholesterolemia, unspecified; I10 Essential (primary) hypertension
CPT/HCPCS: 36415; 71250; 80053; 80061; 82043; 82607; 82746; 83036; 84153; 84439; 84443; 85025

== ENCOUNTER → 2021-12-07 14:46 | Outpatient (BNVA) | payer MEDICARE, OTHER, SELFPAY | PROVIDERS: PCP Internal Medicine; Visit Provider Internal Medicine | DX: R06.00 Dyspnea, unspecified (principal); J98.4 Other disorders of lung; G47.33 Obstructive sleep apnea (adult) (pediatric); Z99.89 Dependence on other enabling machines and devices | CPT/HCPCS: 99202 ==

== ENCOUNTER 2021-12-21 | Outpatient (REF) | payer MEDICARE, OTHER, SELFPAY | END 2021-12-21 00:01 | disposition home or self-care (01) | LOC: CF | PROVIDERS: Visit Provider Internal Medicine Cardiovascular Disease | DX: R06.00 Dyspnea, unspecified (principal); I25.10 Atherosclerotic heart disease of native coronary artery without angina pectoris | CPT/HCPCS: 93005; 99212 ==

== ENCOUNTER 2021-12-21 09:49 | Outpatient (REF) | payer SELFPAY | END 2021-12-21 09:50 | disposition home or self-care (01) | LOC: HO.HAP 09:49 | PROVIDERS: Visit Provider Internal Medicine | DX: Z46.1 Encounter for fitting and adjustment of hearing aid (principal); R06.00 Dyspnea, unspecified; I25.10 Atherosclerotic heart disease of native coronary artery without angina pectoris | CPT/HCPCS: 93005; 99212; V5267 ==

== ENCOUNTER 2022-01-01 13:47 | Outpatient (REF) | payer MEDICARE, OTHER, SELFPAY | END 2022-01-01 13:48 | disposition home or self-care (01) | LOC: HO.HAP 13:47 | PROVIDERS: Visit Provider Internal Medicine | DX: Z13.89 Encounter for screening for other disorder (principal) ==

== ENCOUNTER 2022-02-12 11:22 | Outpatient (REF) | payer SELFPAY | END 2022-02-12 11:23 | disposition home or self-care (01) | LOC: HO.HAP 11:22 | PROVIDERS: Visit Provider Internal Medicine | DX: Z46.1 Encounter for fitting and adjustment of hearing aid (principal); H90.3 Sensorineural hearing loss, bilateral | CPT/HCPCS: V5264 ==

== ENCOUNTER → 2022-03-17 10:52 | Outpatient (REF) | payer MEDICARE, OTHER, SELFPAY | LOC: HO.SL 10:52 | PROVIDERS: PCP Internal Medicine; Visit Provider Internal Medicine | DX: Z13.89 Encounter for screening for other disorder (principal) ==

== ENCOUNTER 2022-04-14 09:00 | Outpatient (REF) | payer MEDICARE, OTHER, SELFPAY | END 2022-04-14 09:01 | disposition home or self-care (01) | LOC: HO.SH 09:00 | PROVIDERS: Visit Provider Internal Medicine | DX: Z01.118 Encounter for examination of ears and hearing with other abnormal findings (principal); H90.3 Sensorineural hearing loss, bilateral | CPT/HCPCS: 92557; 92567 ==

== ENCOUNTER → 2022-04-26 11:21 | Outpatient (REF) | payer MEDICARE, OTHER, SELFPAY | LOC: HO.SL 11:21 | PROVIDERS: Visit Provider Internal Medicine | DX: G47.33 Obstructive sleep apnea (adult) (pediatric) (principal); Z99.89 Dependence on other enabling machines and devices | CPT/HCPCS: 95806 ==

== ENCOUNTER 2022-05-25 05:15 | Emergency (ER) | payer MEDICARE, OTHER, SELFPAY ==
--- NOTE | ~2022-05-25 | XR_ITS ---
EXAMINATION: XR CHEST CLINICAL INFORMATION: Rib pain COMPARISON: 05/21/2016 TECHNIQUE: 2 views of the chest were obtained. FINDINGS: Normal symmetric lung volumes. No parenchymal consolidation. No pleural effusion. No pneumothorax. Cardiomediastinal silhouette and pulmonary vascularity are within normal limits. Previous coronary angioplasty. No acute osseous abnormalities. No displaced rib fractures. XR/XR chest 2V IMPRESSION: No acute findings.
[2022-05-25 05:20] VITALS: BP 152/62; PULSE 61; RESP 18; TEMP 37.1; O2SAT 97; BMI 29.0
--- NOTE | 2022-05-25 09:21 | ED_ITS ---
HPI - General Adult General Chief complaint: General Medical Stated complaint: right flank pain Time Seen by Provider: 05/25/22 08:37 Source: patient Mode of arrival: ambulatory History of Present Illness HPI narrative: 76-year-old male who presents with right lateral rib pain after multiple attempts to open his sliding glass door that was frozen shot. He denies any acute shortness of breath, fevers, chills and denies any falls. Related Data Home Medications Medication Instructions Recorded Confirmed aspirin 81 mg tablet,delayed 81 mg PO DAILY 03/12/20 12/21/21 release (Adult Low Dose Aspirin) folic acid 400 mcg tablet 0.4 mg PO DAILY 03/12/20 12/21/21 cholecalciferol (vitamin D3) 25 25 mcg PO DAILY 08/19/21 12/21/21 mcg (1,000 unit) capsule cyanocobalamin (vitamin B-12) 2,500 mcg PO DAILY 08/19/21 12/21/21 2,500 mcg tablet pregabalin 100 mg capsule 100 mg PO TID 09/21/21 12/21/21 Previous Rx's Medication Instructions Recorded amlodipine 5 mg tablet 5 mg PO DAILY 90 days #90 tabs 12/14/21 atorvastatin 40 mg tablet 40 mg PO DAILY #90 tabs 02/12/22 linagliptin 5 mg tablet (Tradjenta) 5 mg PO DAILY 90 days #90 tabs 02/12/22 AUTO PAP 6-20 cm H2O humidified AIR #1 ea 04/29/22 clopidogrel 75 mg tablet 75 mg PO DAILY #90 tabs 05/13/22 fenofibrate 160 mg tablet 160 mg PO DAILY #90 tabs 05/20/22 pioglitazone 15 mg tablet 15 mg PO DAILY #90 tabs 05/20/22 Allergies Allergy/AdvReac Type Severity Reaction Status Date / Time lisinopril Allergy Unknown Unknown Verified 02/19/22 10:58 penicillin V Allergy Unknown Unknown Verified 02/19/22 10:58 Penicillins [PENICILLINS] Allergy Unknown UNKNOWN Verified 02/19/22 10:58 REACTION-CHILDHOOD ALLERGY Review of Systems Review of Systems: Pertinent positives and negatives as stated in HPI. [facility] Past Medical History Source: nursing notes reviewed Medical History CAD (coronary artery disease) Cardiomyopathy Carotid stenosis Cataracts, bilateral Chronic otitis media COPD (chronic obstructive pulmonary disease) Erectile dysfunction Hypercholesterolemia Hypertension NICM (nonischemic cardiomyopathy) Obstructive sleep apnea Peripheral vascular disease Post herpetic neuralgia PVCs (premature ventricular contractions) Rotator cuff tear, left Tubular adenoma of colon Type 2 diabetes mellitus with hyperglycemia Surgical History History of cardiac catheterization History of carotid endarterectomy History of cataract surgery History of colonoscopy History of repair of rotator cuff History of tonsillectomy Family History Family History Father H/O ETOH abuse Hypertension Mother Hypertension Brother Diabetes Brother No problems noted. Sister No problems noted. Sister No problems noted. Social History Social History Housing: House Alcohol intake: current Alcohol intake frequency: a few times a week Alcohol type: beer Patient Tobacco Use Status: Never used Tobacco Cigarette Packs Per Day: 0 Cigarettes Per Day: 0 Years Smoked: 0 e-Cigarette/Vaping Use: Never Used Second Hand Smoke Exposure: No Advance Directives: Yes Advance Directives on File: Yes Advance Directives Date on File: 11/17/21 service: No Current occupational status: employed Cognitive needs: No Hearing needs: No Vision needs: Yes Physical Exam ED Vital Signs: Vital Signs - 24 hr 05/25/22 05:20 Temperature 98.7 F Pulse Rate 61 Respiratory Rate 18 Blood Pressure 152/62 H Pulse Oximetry 97 Oxygen Delivery Method Room Air BMI result Body Mass Index 29.0 VITAL SIGNS: Reviewed. GENERAL: Well developed, well nourished, in no acute distress. HEAD: Normocephalic/atraumatic EYES: PERRLA, EOMI EARS: Ext canals without abnormality OROPHARYNX: no oral lesions noted, posterior pharynx clear LUNGS: Normal breath sounds. No adventitious sounds or accessory muscle use. SpO2<97>; CHEST WALL: There is no crepitus, deformity, but there is tenderness palpation over the right lateral lower ribs. There is no noted ecchymosis. CARDIOVASCULAR: Regular rate and rhythm without noted murmurs ABDOMEN: Soft, non-tender, non-distended with bowel sounds. NEUROLOGIC: Alert and oriented x 4. Course Course Course Narrative: I reviewed all imaging studies and suspect that this is a costochondritis, anterior chest wall muscle strain, patient received initially Tylenol/ibuprofen/lidocaine patch but will not be continued on ibuprofen as patient is currently on dual anti-platelet therapy. Medical Decision Making Medical Decision Making MDM Narrative: 76-year-old male with atraumatic right chest wall pain, will obtain chest x-ray to rule out pneumothorax or fracture. Differential Diagnosis Differential Diagnoses: The differential diagnosis associated with the presentation includes Rib fracture, pneumothorax less likely pneumonia and no suspicion for COPD exacerbation. Patient received Tylenol/ibuprofen/lidocaine patch. Radiology Impression Radiologist Impression: My interpretation is in agreement with radiology impression of imaging studies. External Record Review I reviewed patient's records. Chronic Conditions Patient?s care impacted by: Diabetes Discharge Plan Discharge Clinical Impression: Muscle strain of anterior chest wall, Acute costochondritis Patient Disposition: Home, Self-Care Instructions: Costochondritis (ED), Muscle Strain (ED), Chest Wall Pain (ED) Additional Instructions: 1. Resume all home medications as prescribed. 2. Tylenol 1000 mg, orally, every 6 hours as needed for pain control. Do not exceed 4000 mg within 24 hours. 3. Lidocaine patch please apply to the area of maximal tenderness as directed on the outside packaging. Please avoid all ibuprofen/Motrin/Aleve as you are on aspirin and clopidogrel (Plavix). 4. Follow-up with your primary care provider in the next 2-3 days for re- evaluation and further outpatient management. Return to the ER for worsening symptoms. Prescriptions: No Action amlodipine 5 mg tablet 5 mg PO DAILY 90 Days Qty: 90 2RF atorvastatin 40 mg tablet 40 mg PO DAILY Qty: 90 3RF Tradjenta 5 mg tablet 5 mg PO DAILY 90 Days Qty: 90 3RF (DME) AUTO PAP 6-20 cm H2O humidified AIR See Rx Instructions .Route .MEDSUPPLY Qty: 1 0RF Rx Instructions: As directed clopidogrel 75 mg tablet 75 mg PO DAILY Qty: 90 3RF fenofibrate 160 mg tablet 160 mg PO DAILY Qty: 90 3RF pioglitazone 15 mg tablet 15 mg PO DAILY Qty: 90 3RF cholecalciferol (vitamin D3) 25 mcg (1,000 unit) capsule 25 mcg PO DAILY cyanocobalamin (vitamin B-12) 2,500 mcg tablet 2,500 mcg PO DAILY folic acid 400 mcg tablet 0.4 mg PO DAILY aspirin [Adult Low Dose Aspirin] 81 mg tablet,delayed release (DR/EC) 81 mg PO DAILY pregabalin 100 mg capsule 100 mg PO TID Referrals: Po,Elida Blevins MD [Primary Care Provider] -
[2022-05-25] MEDS: Acetaminophen 325 MG TABLET 975 MG PO (09:52)
[2022-05-25] MEDS: Lidocaine 4 % Patch ADH..PATCH 1 PATCH TRANSDERMA (09:55)
[2022-05-25] MEDS: Ibuprofen 400 MG TABLET PO (09:58)
== END 2022-05-25 10:05 | disposition home or self-care (01) ==
PROVIDERS: Emergency Provider Student in an Organized Health Care Education/Training Program; PCP Internal Medicine
DX: M94.0 Chondrocostal junction syndrome [Tietze] (principal); I25.10 Atherosclerotic heart disease of native coronary artery without angina pectoris; I10 Essential (primary) hypertension; Z79.899 Other long term (current) drug therapy
CPT/HCPCS: 71046; 99283

== ENCOUNTER → 2022-06-16 09:47 | Outpatient (BNVA) | payer MEDICARE, OTHER, SELFPAY | PROVIDERS: PCP Internal Medicine; Visit Provider Internal Medicine Cardiovascular Disease | DX: I25.10 Atherosclerotic heart disease of native coronary artery without angina pectoris (principal); I49.3 Ventricular premature depolarization; Z79.899 Other long term (current) drug therapy | CPT/HCPCS: 99212 ==

== ENCOUNTER 2022-06-18 09:24 | Outpatient (REF) | payer SELFPAY ==
--- NOTE | 2022-06-18 09:43 | MHC.AU.HA3 ---
Hearing Instrument Follow-Up- Binaural Date of Visit: 06/18/22 Right Ear: Alfredo, Model, Color, Serial Number: Neno Goldman [id number] SN: [id number] Color: Jonniee Gas Mask Inspector Repair Warranty: 06/13/2024 Gas Mask Inspector Loss and Damage Warranty: 06/13/2024 Battery Size: 13 Maintenance And Utilities Supervisor/Slim Tube: #1 Power Earmold/Dome/CShell/SlimTip:Phonak Canal Lock C-Shell # [id number] warranty 07/15/2021 Type of Wax Guard: CeruStop Dispensed By: [facility] Date of Fittin03/20/2021 Left Ear: Alfredo, Model, Color, Serial Number: Neno Goldman [id number] SN: [id number] Color: Jonniee Gas Mask Inspector Repair Warranty: 06/13/2024 Gas Mask Inspector Loss and Damage Warranty: 06/13/2024 Battery Size: 13 Maintenance And Utilities Supervisor/Slim Tube: #1 Power Earmold/Dome/CShell/SlimTip: Phonak Canal Lock C-Shell #[id number] Warranty 04/12/2022 Type of Wax Guard: CeruStop Dispensed By: [facility] Date of Fittin03/20/2021 Follow-Up Summary: Deondre reported that he lost the bluetooth connection to his cellphone. Repaired via bluetooth settings and confirmed successful connection with phone call in office. Michele'ed [id number] instructions for repairing if hearing aids disconnect again. Deondre reported he does not have or use the Phonak melvin. He has no other issues/concerns with his hearing aids at this time and has been quite satisfied with their overall comfort and sound quality. Recommendations: Hearing instrument follow-up or maintenance as needed. Diagnosis Code(s):Primary Diagnosis: H90.6 Mixed Hearing Loss, Bilateral Secondary Diagnosis: H69.93 Unspecified Eustachian Tube Dysfunction, Bilateral Signature: Provider: Sahil Link, [facility]
== END 2022-06-18 09:25 | disposition home or self-care (01) ==
LOC: HO.HAP 09:24
PROVIDERS: Visit Provider Internal Medicine
DX: Z13.89 Encounter for screening for other disorder (principal)

== ENCOUNTER → 2022-06-28 14:50 | Outpatient (BNVA) | payer MEDICARE, OTHER, SELFPAY | PROVIDERS: PCP Internal Medicine; Visit Provider Internal Medicine | DX: G47.33 Obstructive sleep apnea (adult) (pediatric) (principal); J98.4 Other disorders of lung; R06.00 Dyspnea, unspecified; Z99.89 Dependence on other enabling machines and devices | CPT/HCPCS: 99212 ==

== ENCOUNTER 2022-08-25 15:23 | Outpatient (REF) | payer SELFPAY | END 2022-08-25 15:24 | disposition home or self-care (01) | LOC: HO.HAP 15:23 | PROVIDERS: Visit Provider Internal Medicine | DX: Z46.1 Encounter for fitting and adjustment of hearing aid (principal); H90.6 Mixed conductive and sensorineural hearing loss, bilateral; H69.93 Unspecified Eustachian tube disorder, bilateral | CPT/HCPCS: V5267 ==

== ENCOUNTER 2022-10-04 10:09 | Outpatient (REF) | payer MEDICARE, OTHER, SELFPAY ==
--- NOTE | ~2022-10-04 | US_ITS ---
EXAMINATION: US EXTRACRANIAL CAROTID DUPLEX, BILATERAL CLINICAL INFORMATION: Bilateral carotid artery disease. History of endarterectomy in 2011. COMPARISON: 10/03/2013. TECHNIQUE: Real-time ultrasound and Doppler techniques (integrating B-mode 2-D vascular images, Doppler spectral analysis and color-flow Doppler imaging) were utilized to interrogate the extracranial carotid arteries, the vertebral arteries and proximal subclavian arteries bilaterally. The degree of stenosis is determined by criteria similar to NASCET. FINDINGS: Right Side: 1. There is moderate atherosclerotic plaque seen in the bifurcation/proximal ICA region. 2. The common carotid artery PSV proximally is 94 cm/s and distally 82 cm/s. 3. The proximal internal carotid artery velocities are 176 cm/s systolic and 31 cm/s diastolic. 4. The proximal external carotid artery PSV is 305 cm/s. 5. The vertebral artery shows antegrade flow. 6. The subclavian artery waveforms are normal. Left Side: 1. There is moderate atherosclerotic plaque seen in the bifurcation/proximal ICA region. 2. The common carotid artery PSV proximally is 109 cm/s and distally 135 cm/s. 3. The proximal internal carotid artery velocities are 127 cm/s systolic and 29 cm/s diastolic. 4. The proximal external carotid artery PSV is 149 cm/s. 5. The vertebral artery shows antegrade flow. 6. The subclavian artery waveforms are normal. US/US carotid duplex BI IMPRESSION: 1. RIGHT: Moderate, hemodynamically significant stenosis of the proximal right internal carotid artery corresponding to a 50-79% stenosis by velocity criteria. 2. LEFT: Moderate, hemodynamically significant stenosis of the proximal left internal carotid artery corresponding to a 50-79% stenosis by velocity criteria. 3. There is no change in the category severity of disease when compared to the previous study dated 10/03/2013.
== END 2022-10-04 10:10 | disposition home or self-care (01) ==
LOC: HO.US 10:09
PROVIDERS: PCP Internal Medicine; Visit Provider Surgery Vascular Surgery
DX: I65.23 Occlusion and stenosis of bilateral carotid arteries (principal)
CPT/HCPCS: 93880

== ENCOUNTER → 2022-10-26 08:49 | Outpatient (BNVA) | payer OTHER, MEDICARE, SELFPAY | PROVIDERS: PCP Internal Medicine; Visit Provider Surgery Vascular Surgery ==

== ENCOUNTER 2022-12-22 13:09 | Outpatient (AMB) | payer MEDICARE, OTHER, SELFPAY ==
[2022-12-22 13:18] VITALS: BP 120/64; PULSE 62; BMI 31.8
--- NOTE | 2022-12-22 13:18 | A.OFFVIS_ITS ---
Intake Vital Signs 12/22/22 13:18 Height 5 ft 6 in Weight 197 lb 1.492 oz BMI 31.8 BP 120/64 Blood Pressure Location Lt brachial Position Sitting Pulse 62 Pulse Source Monitor Intake Visit Reasons: 6 mtonth fu Intake Note: 6 month follow up with EKG. Patient Services Specialist Required: No Accompanied by: Self / Same As Patient Allergies lisinopril Allergy (Unknown, Verified 12/22/22 13:19) Unknown Penicillins [PENICILLINS] Allergy (Unknown, Verified 12/22/22 13:19) UNKNOWN REACTION-CHILDHOOD ALLERGY Medication List - Last Reconciled 12/22/22 by Reji Jackson MD amlodipine 5 mg PO DAILY 90 days aspirin (Adult Low Dose Aspirin) 81 mg PO DAILY atorvastatin 40 mg PO DAILY [AUTO PAP 6-20 cm H2O humidified AIR As directed] cholecalciferol (vitamin D3) 25 mcg PO DAILY clopidogrel 75 mg PO DAILY cyanocobalamin (vitamin B-12) 2,500 mcg PO DAILY fenofibrate 160 mg PO DAILY folic acid 0.4 mg PO DAILY linagliptin (Tradjenta) 5 mg PO DAILY 90 days pioglitazone 15 mg PO DAILY pregabalin 100 mg PO TID HPI HPI Comments History of Present Illness Details Pleasant 77-year-old gentleman with known coronary artery disease and previous LAD PCI. He also had PVCs in the past and underwent ablation which was unsuccessful. His ejection fraction was low normal but improved after ablation but interestingly he had PVCs at the time his ejection fraction improved. I do not think he had PVC related cardiomyopathy. He returns for follow-up. On last visit he had a lot of PVCs and recently for Holter monitoring which showed 15,000 PVCs. He is saying his more short of breath and has been noticing shortness of breath when he exerts. This is similar to his anginal symptoms before we did LAD PCI. He does have residual coronary disease and has severe right coronary artery stenosis which we did not revascularize and we decided that if he develops symptom which should treat that. After discussion he was taken for RCA PCI. He was treated with 2 drug-eluting stents in the right coronary artery. His dyspnea did not improve after the RCA PCI. He was started on amiodarone to suppress the PVCs to see if that helps his shortness of breath but he continues to be short of breath. He was sent for PFTs which raise concern for restrictive lung disease and underwent CT chest which showed emphysema and some scarring. He has seen pulmonology and will be following up with them. After his PFT abnormality his amiodarone was stopped. His returning for follow-up today and will be going for spinal cord stimulator for back pain. He has been struggling with back pain for long time and had multiple interventional procedures previously without any significant change in his symptoms. His asking whether he can hold aspirin and Plavix. He has some dyspnea but no big changes in his symptoms. No chest discomfort. Mild peripheral edema as before. 12/22/22: He is here for follow-up. He is complaining that he is more short of breath recently. He has gained 10 lb over the last year. Most of this is abdominal obesity. He has been experiencing some breathing problems when he bends forward. He is also experiencing shortness of breath with activities and feels that things are progressing. He has follow-up with pulmonology previously. No chest discomfort. No symptoms of congestive heart failure. Continues to have back issues and is following with pain management. [facility] Medical History CAD (coronary artery disease) Cardiomyopathy Carotid stenosis Cataracts, bilateral Chronic otitis media COPD (chronic obstructive pulmonary disease) Erectile dysfunction Hypercholesterolemia Hypertension NICM (nonischemic cardiomyopathy) Obstructive sleep apnea Peripheral vascular disease Post herpetic neuralgia PVCs (premature ventricular contractions) Rotator cuff tear, left Tubular adenoma of colon Type 2 diabetes mellitus with hyperglycemia Surgical History History of cardiac catheterization History of carotid endarterectomy History of cataract surgery History of colonoscopy History of repair of rotator cuff History of tonsillectomy Family History Father H/O ETOH abuse Hypertension Mother Hypertension Brother Diabetes Brother No problems noted. Sister No problems noted. Sister No problems noted. Social History Housing: House Alcohol intake: current Alcohol intake frequency: a few times a week Alcohol type: beer Patient Tobacco Use Status: Never used Tobacco e-Cigarette/Vaping Use: Never Used Second Hand Smoke Exposure: No Advance Directives Date on File: 11/17/21 service: No Current occupational status: employed Cognitive needs: No Hearing needs: No Vision needs: Yes Review of Systems Const Denies weakness ENT Denies dizziness Card Denies chest pain, Denies chest pain with activity, Denies syncope, Denies rapid heart rate, Denies pedal edema, Denies edema, Denies leg edema, Denies lightheadedness, Denies palpitations, Denies dyspnea, Denies dyspnea on exertion and Denies orthopnea Resp Denies cough, Denies dyspnea and Denies dyspnea on exertion GI Denies hematochezia and Denies change in stool character Musc Denies abnormal gait, Denies muscle cramps, Denies muscle weakness, Denies numbness, Denies radiating pain into limb and Denies tingling Neuro Denies abnormal gait, Denies dizziness, Denies syncope, Denies numbness, Denies tingling and Denies weakness Endo Denies palpitations Physical Exam Vital Signs: Last Vital Signs Pulse 62 12/22/22 13:18 BP 120/64 12/22/22 13:18 BMI result Body Mass Index 31.8 GENERAL APPEARANCE: in no acute distress, well developed, well nourished. NECK/THYROID: no carotid bruit, no jugular venous distention. 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 HEART: no murmurs, regular rate and rhythm, S1, S2 normal. LUNGS: Crackles at bases. ABDOMEN: normal, bowel sounds present, soft, nontender, nondistended. EXTREMITIES: no clubbing, cyanosis. Mild edema. PERIPHERAL PULSES: equal. NEUROLOGIC: nonfocal, alert and oriented. Office Procedures EKG Details: Sinus rhythm 62 beats per minute, right bundle-branch block, left anterior fascicular block, premature ventricular complexes, QTC 442 milliseconds. [id number], Complete Assessment & Plan Assessment & Plan (1) CAD (coronary artery disease): Code(s): I25.10 - Atherosclerotic heart disease of [place] coronary artery without angina pectoris Qualifiers: Coronary Disease-Associated Artery/Lesion type: [place] artery [place] vs. transplanted heart: [place] heart Associated angina: without angina Qualified Code(s): I25.10 - Atherosclerotic heart disease of [place] coronary artery without angina pectoris (2) Hypertension: Code(s): I10 - Essential (primary) hypertension Qualifiers: Hypertension type: essential hypertension Qualified Code(s): I10 - Essential (primary) hypertension (3) Dyspnea on exertion: Code(s): R06.00 - Dyspnea, unspecified Plan Pleasant 77-year-old gentleman who is here for follow-up. He has known history of coronary artery disease and underwent LAD and RCA PCI in the past. He also has back pain and deconditioning and some restrictive lung disease based on obesity. He is returning for follow-up and is complaining of worsening shortness of breath. He is saying that he gets out of breath easily. He has gained 10 lb. His previous symptom for coronary disease was also dyspnea on exertion. I explained to him that is challenging to tease out what is contributing more to his dyspnea currently. Obviously has gained some weight and has been chronically deconditioned due to back issues but progressive coronary disease is a possibility too. After discussion we have decided to do a stress test. Given right bundle-branch block and baseline EKG changes I will do a stress Mibi. Thank you for allowing me to participate in the care of your patient. Please feel free to contact me if you have any questions. Coding Level of Care Code Est Pt Level 4 (99659) Diagnoses CAD (coronary artery disease) I25.10 Coronary Disease-Associated Artery/Lesion type: [place] artery [place] vs. transplanted heart: [place] heart Associated angina: without angina Hypertension I10 Hypertension type: essential hypertension Dyspnea on exertion R06.00 CPT Codes EKG - CPT: [id number], Complete ([id number])
== END 2022-12-22 13:42 | disposition home or self-care (01) ==
PROVIDERS: Visit Provider Internal Medicine Cardiovascular Disease
DX: I25.10 Atherosclerotic heart disease of native coronary artery without angina pectoris (principal); I10 Essential (primary) hypertension; R06.00 Dyspnea, unspecified
CPT/HCPCS: 93010; 99214

== ENCOUNTER → 2022-12-22 13:09 | Outpatient (BNVA) | payer MEDICARE, OTHER, SELFPAY | PROVIDERS: Visit Provider Internal Medicine Cardiovascular Disease | DX: I25.10 Atherosclerotic heart disease of native coronary artery without angina pectoris (principal); I10 Essential (primary) hypertension; R06.00 Dyspnea, unspecified | CPT/HCPCS: 93005; 99212 ==

== ENCOUNTER 2022-12-27 14:04 | Outpatient (AMB) | payer MEDICARE, OTHER, SELFPAY ==
--- NOTE | 2022-12-27 14:08 | MHC.OFFVIS ---
Intake Vital Signs 12/27/22 14:09 Height 5 ft 6 in Weight 191 lb BMI 30.8 BP 120/50 L Blood Pressure Location Lt brachial Position Standing Pulse 65 Pulse Source Pulse Oximeter Pulse Oximetry (%) 95 Oxygen Delivery Method Room Air Intake Visit Reasons: RLD Intake Note: pt is here for follow up and states that since he has been here last he has some more short of breath, slight weight gain. 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 Allergies lisinopril Allergy (Unknown, Verified 12/27/22 14:28) Unknown Penicillins [PENICILLINS] Allergy (Unknown, Verified 12/27/22 14:28) UNKNOWN REACTION-CHILDHOOD ALLERGY Medication List - Last Reconciled 12/27/22 by Leelee Willis MD amlodipine 5 mg PO DAILY 90 days aspirin (Adult Low Dose Aspirin) 81 mg PO DAILY atorvastatin 40 mg PO DAILY [AUTO PAP 6-20 cm H2O humidified AIR As directed] cholecalciferol (vitamin D3) 25 mcg PO DAILY clopidogrel 75 mg PO DAILY cyanocobalamin (vitamin B-12) 2,500 mcg PO DAILY fenofibrate 160 mg PO DAILY folic acid 0.4 mg PO DAILY linagliptin (Tradjenta) 5 mg PO DAILY 90 days pioglitazone 15 mg PO DAILY pregabalin 100 mg PO TID Do you need a note to return to daycare/school/sports/work: No HPI RLD HPI Details 77 YEARS OLD VERY PLEASANT GENTLEMAN WHO IS MODERATELY OBESE, AND HAS LONGSTANDING OBSTRUCTIVE SLEEP APNEA. HE USES CPAP THE ABOUT 20 NIGHTS PER MONTH, AFTER USING FOR 2 OR 3 NIGHTS HE WANTS TO HAVE A BREAK FOR ONE NIGHT. HE REPORTS THAT HE SLEEPS WELL. NO ISSUES WITH THE MACHINE OR CPAP MASK. HE DENIES ANY DAYTIME SLEEPINESS. WEIGHT BOBBY HE HAS HAS PUT IT ON A FEW LB DURING THE PAST YEAR, NOW TRYING TO CONTROL IT. [facility] Medical History CAD (coronary artery disease) Cardiomyopathy Carotid stenosis Cataracts, bilateral Chronic otitis media COPD (chronic obstructive pulmonary disease) Erectile dysfunction Hypercholesterolemia Hypertension NICM (nonischemic cardiomyopathy) Obstructive sleep apnea Peripheral vascular disease Post herpetic neuralgia PVCs (premature ventricular contractions) Rotator cuff tear, left Tubular adenoma of colon Type 2 diabetes mellitus with hyperglycemia Surgical History History of cardiac catheterization History of carotid endarterectomy History of cataract surgery History of colonoscopy History of repair of rotator cuff History of tonsillectomy Family History Father H/O ETOH abuse Hypertension Mother Hypertension Brother Diabetes Brother No problems noted. Sister No problems noted. Sister No problems noted. Social History Housing: House Alcohol intake: current Alcohol intake frequency: a few times a week Alcohol type: beer Patient Tobacco Use Status: Never used Tobacco e-Cigarette/Vaping Use: Never Used Second Hand Smoke Exposure: No Advance Directives Date on File: 11/17/21 service: No Current occupational status: employed Cognitive needs: No Hearing needs: No Vision needs: Yes Review of Systems Const All systems reviewed & are unremarkable except as noted in HPI and below Eyes Reports no additional complaints ENT Reports no additional complaints Card Denies chest pain, Denies irregular heart rhythm, Reports leg edema (Mild) and Reports dyspnea on exertion (Moderate) Resp Denies cough, Reports dyspnea on exertion (Moderate) and Denies wheezing GI Reports no additional complaints Reports no additional complaints Musc Reports no additional complaints Skin/Breast Reports system reviewed and no additional complaints, except as documented Neuro Reports no additional complaints Psych Reports no additional complaints Endo Reports no additional complaints Eliseo/Lymph Reports no additional complaints Aller/Immun Denies wheezing Physical Exam Vital Signs: Last Vital Signs Pulse 65 12/27/22 14:09 BP 120/50 L 12/27/22 14:09 Pulse Ox 95 12/27/22 14:09 Oxygen Delivery Method Room Air 12/27/22 14:09 BMI result Body Mass Index 30.8 Const General: healthy appearing (Except for being overweight), comfortable, no acute distress, alert and awake Orientation/consciousness: patient oriented x3 HEENT Head: Yes normal to inspection General nose exam: No nasal polyps present and No nasal discharge present Face and sinus: Yes sinuses nontender Mouth: oropharynx normal Throat: Yes posterior oropharynx normal Eyes General: appearance normal, both eyes and all related structures Neck Neck: Yes normal visual inspection, Yes no lymphadenopathy, Yes trachea midline and Yes no JVD Thyroid: Thyroid normal Chest Chest palpation & inspection: normal inspection of the chest, normal palpation of entire chest wall and no tenderness Resp Other: Percussion note resonant. Breath sounds are equal on both sides, slightly diminished over the basilar areas. No wheezes or crepitations are heard. Cardio Palpation: normal PMI Rate: regular rate Rhythm: regular rhythm Heart sounds: no gallops and no murmurs Peripheral pulses: Peripheral pulses 2+ throughout GI Palpation (GI): Soft to palpation, nontender, No hepatosplenomegaly present, no masses and Other GI palpation findings present (Abdomen is moderately protuberant.) Auscultation: normal bowel sounds Back/Spine/Pelvis Thoracic/Lumbar Spine: thoracic and lumbar spine normal to inspection Skin General skin exam: no rashes or lesions noted Neuro General: patient oriented x3 and no focal motor deficits Cranial nerves: Yes CN's II-XII intact bilaterally Extrem General: Yes normal to inspection, Yes no calf tenderness and Yes edema (1+ pitting edema of both legs) Psych Appearance: grossly normal and well kempt Speech and movement: Normal speech and movement present Assessment & Plan Assessment & Plan (1) COPD (chronic obstructive pulmonary disease): Comment: PATIENT HAS ONLY BORDERLINE OBSTRUCTIVE AIRWAY DISORDER AND REALLY DOES NOT REQUIRED TO USE ANY BRONCHODILATOR INHALERS. Code(s): J44.9 - Chronic obstructive pulmonary disease, unspecified Qualifiers: COPD type: emphysema Emphysema type: unspecified Qualified Code(s): J43.9 - Emphysema, unspecified (2) Restrictive lung disease: Comment: He has moderate degree of restrictive lung disease, Secondary to, weight gain,( especially abdominal obesity ) and some degree of bibasilar atelectasis. TX: Patient is advised to lose 10-15 lb of weight. Incentive Spirometry exercises TID Code(s): J98.4 - Other disorders of lung (3) JITENDRA on CPAP: Comment: Known case of obstructive sleep apnea since 2017. Has been using CPAP very regularly all this time. REMAINS VERY COMPLIANT, OLD CPAP DEVICE WAS NOT CAPABLE OF TRANSMITTING THE COMPLIANCE DATA. HE HAS THE NEW CPAP MACHINE AND ADVISED TO START USING IT REGULARLY, WE SHOULD BE ABLE TO DOWNLOAD HIS COMPLIANCE IS WITH THIS NEW CPAP. Code(s): G47.33 - Obstructive sleep apnea (adult) (pediatric); Z99.89 - Dependence on other enabling machines and devices Coding Level of Care Code Est Pt Level 3 (51765) Diagnoses COPD (chronic obstructive pulmonary disease) J43.9 COPD type: emphysema Emphysema type: unspecified Restrictive lung disease J98.4 JITENDRA on CPAP G47.33; Z99.89
[2022-12-27 14:09] VITALS: BP 120/50; PULSE 65; O2SAT 95; BMI 30.8
== END 2022-12-27 14:44 | disposition home or self-care (01) ==
PROVIDERS: PCP Internal Medicine; Visit Provider Internal Medicine
DX: J43.9 Emphysema, unspecified (principal); J98.4 Other disorders of lung; G47.33 Obstructive sleep apnea (adult) (pediatric); Z99.89 Dependence on other enabling machines and devices
CPT/HCPCS: 99213

== ENCOUNTER → 2022-12-27 14:04 | Outpatient (BNVA) | payer MEDICARE, OTHER, SELFPAY | PROVIDERS: PCP Internal Medicine; Visit Provider Internal Medicine | DX: J43.9 Emphysema, unspecified (principal); J98.4 Other disorders of lung; G47.33 Obstructive sleep apnea (adult) (pediatric); Z99.89 Dependence on other enabling machines and devices | CPT/HCPCS: 99212 ==

== ENCOUNTER → 2023-01-21 08:43 | Outpatient (REF) | payer MEDICARE, OTHER, SELFPAY ==
--- NOTE | ~2023-01-21 | NM_ITS ---
EXERCISE MYOCARDIAL PERFUSION STUDY INDICATION: Coronary disease, cardiomyopathy, assess for ischemia TECHNIQUE: The patient was brought in for an exercise perfusion study on 01/21/2023. Patient performed exercise as per Emiliano protocol and was injected 30 mCi of sestamibi once target heart rate was achieved. Images were obtained using the SPECT gamma camera interlaced with the gating device. Images were obtained in supine position. Resting perfusion study was performed on 01/26/2023. Patient was administered 30 mCi of sestamibi intravenously at rest. Images were then obtained in supine position. Images were processed with the software and compared side to side in short axis, horizontal long axis and vertical long axis views. Total DLP 105mGy-cm. FINDINGS: Raw images were reviewed. The stress perfusion study showed diminished tracer uptake along the inferior wall. With CT attenuation correction, there is some improvement and hence could have components of diaphragmatic attenuation artifact. The gated study shows diminished LV systolic function with calculated LVEF of 46%. LV cavity is dilated in size. The gated study shows inferior hypokinesis. Resting study shows diminished tracer uptake along the inferior wall. With CT at admission correction, there is some improvement and hence could have components of diaphragmatic attenuation artifact. Gating at rest reveals inferior hypokinesis with ejection fraction at 43%. The findings are consistent with fixed inferior perfusion defect. No reversible defects. NM/NM cardiolite stress test IMPRESSION: 1. Myocardial perfusion imaging study shows no evidence of ischemia. Fixed inferior defect which could indicate some combination of nontransmural infarct with diaphragmatic attenuation artifact. 2. Gated LVEF is 46% during stress and 43% during rest. 3. Transient ischemic dilatation not present. EKG component of the test reported separately.
--- NOTE | 2023-01-21 08:47 | CA_ITS ---
Acquisition Time: 2023-01-21 09:04:22 Total Exercise Time: 00:04:57 Test Indications: Dyspnea PVC S Medications: ASA AMLODIPINE ATORVASTATIN CLOPIDOGREL FENOFIBRATE PREGABALIN Protocol: REINALDO Max HR: 130 BPM 91% of Pred: 142 BPM Max BP: 163/058 mmHG Max Work Load: 6.9 METS Exercise stress test exercise 4 min 57 sec of Reinaldo protocol achieving 90% MPHR with request to stop due to fatigue and moderate SOB, no chest discomfort, with isoplated PVCs and PACs, with normotensiove response to exercise, without EKG changes. Breathing returned to baseline with rest. Nuclear images pending. Test reviewed with Dr. Knox. Referred By: Reji Jackson Overread By: DOUGLAS KNOX
== END ==
LOC: HO.CARD 08:43
PROVIDERS: PCP Internal Medicine; Visit Provider Internal Medicine Cardiovascular Disease
DX: R06.00 Dyspnea, unspecified (principal)
CPT/HCPCS: 78452; 93017; A9500; A9537; J0280; J2785; J2805

== ENCOUNTER → 2023-01-21 08:47 | Outpatient (BNV) | payer MEDICARE, OTHER, SELFPAY | PROVIDERS: PCP Internal Medicine; Visit Provider Internal Medicine | DX: I42.9 Cardiomyopathy, unspecified (principal) | CPT/HCPCS: 78452; 93016; 93018 ==

== ENCOUNTER 2023-02-02 13:33 | Outpatient (AMB) | payer MEDICARE, OTHER, SELFPAY ==
--- NOTE | 2023-02-02 13:35 | MHC.OFFVIS ---
Intake Vital Signs 02/02/23 13:36 Height 5 ft 6 in Weight 188 lb 11.451 oz BMI 30.5 BP 122/62 Blood Pressure Location Lt brachial Position Sitting Pulse 75 Intake Visit Reasons: DISCUSS STRESS RESULTS Intake Note: Follow up after stress test. 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 Accompanied by: Self / Same As Patient Allergies lisinopril Allergy (Unknown, Verified 02/02/23 13:37) Unknown Penicillins [PENICILLINS] Allergy (Unknown, Verified 02/02/23 13:37) UNKNOWN REACTION-CHILDHOOD ALLERGY Medication List - Last Reconciled 02/02/23 by Reji Jackson MD amlodipine 5 mg PO DAILY 90 days aspirin (Adult Low Dose Aspirin) 81 mg PO DAILY atorvastatin 40 mg PO DAILY [AUTO PAP 6-20 cm H2O humidified AIR As directed] cholecalciferol (vitamin D3) 25 mcg PO DAILY clopidogrel 75 mg PO DAILY cyanocobalamin (vitamin B-12) 2,500 mcg PO DAILY fenofibrate 160 mg PO DAILY folic acid 0.4 mg PO DAILY linagliptin (Tradjenta) 5 mg PO DAILY 90 days pioglitazone 15 mg PO DAILY pregabalin 100 mg PO TID HPI HPI Comments History of Present Illness Details Pleasant 77-year-old gentleman with known coronary artery disease and previous LAD PCI. He also had PVCs in the past and underwent ablation which was unsuccessful. His ejection fraction was low normal but improved after ablation but interestingly he had PVCs at the time his ejection fraction improved. I do not think he had PVC related cardiomyopathy. He returns for follow-up. On last visit he had a lot of PVCs and recently for Holter monitoring which showed 15,000 PVCs. He is saying his more short of breath and has been noticing shortness of breath when he exerts. This is similar to his anginal symptoms before we did LAD PCI. He does have residual coronary disease and has severe right coronary artery stenosis which we did not revascularize and we decided that if he develops symptom which should treat that. After discussion he was taken for RCA PCI. He was treated with 2 drug-eluting stents in the right coronary artery. His dyspnea did not improve after the RCA PCI. He was started on amiodarone to suppress the PVCs to see if that helps his shortness of breath but he continues to be short of breath. He was sent for PFTs which raise concern for restrictive lung disease and underwent CT chest which showed emphysema and some scarring. He has seen pulmonology and will be following up with them. After his PFT abnormality his amiodarone was stopped. His returning for follow-up today and will be going for spinal cord stimulator for back pain. He has been struggling with back pain for long time and had multiple interventional procedures previously without any significant change in his symptoms. His asking whether he can hold aspirin and Plavix. He has some dyspnea but no big changes in his symptoms. No chest discomfort. Mild peripheral edema as before. 12/22/22: He is here for follow-up. He is complaining that he is more short of breath recently. He has gained 10 lb over the last year. Most of this is abdominal obesity. He has been experiencing some breathing problems when he bends forward. He is also experiencing shortness of breath with activities and feels that things are progressing. He has follow-up with pulmonology previously. No chest discomfort. No symptoms of congestive heart failure. Continues to have back issues and is following with pain management. 02/02/23: Stable at this point. He returns for follow-up. On last visit we discussed and he was referred for exercise stress test. He underwent stress Mibi where he was able to exercise for 5 minutes. Nuclear perfusion imaging showed fixed defect in the inferior wall with differentials of diaphragmatic attenuation versus inferior infarct. He continues to get dyspnea on exertion but has slowed down and he is able to function he and can do what he likes to do. No chest discomfort as before. He is saying that lungs are stable. He has back issues which are also stable. [facility] Medical History CAD (coronary artery disease) Cardiomyopathy Carotid stenosis Cataracts, bilateral Chronic otitis media COPD (chronic obstructive pulmonary disease) Erectile dysfunction Hypercholesterolemia Hypertension NICM (nonischemic cardiomyopathy) Obstructive sleep apnea Peripheral vascular disease Post herpetic neuralgia PVCs (premature ventricular contractions) Rotator cuff tear, left Tubular adenoma of colon Type 2 diabetes mellitus with hyperglycemia Surgical History History of cardiac catheterization History of carotid endarterectomy History of cataract surgery History of colonoscopy History of repair of rotator cuff History of tonsillectomy Family History Father H/O ETOH abuse Hypertension Mother Hypertension Brother Diabetes Brother No problems noted. Sister No problems noted. Sister No problems noted. Social History Housing: House Alcohol intake: current Alcohol intake frequency: a few times a week Alcohol type: beer Patient Tobacco Use Status: Never used Tobacco e-Cigarette/Vaping Use: Never Used Second Hand Smoke Exposure: No Advance Directives Date on File: 11/17/21 service: No Current occupational status: employed Cognitive needs: No Hearing needs: No Vision needs: Yes Review of Systems Const Denies weakness ENT Denies dizziness Card Denies chest pain, Denies chest pain with activity, Denies syncope, Denies rapid heart rate, Denies pedal edema, Denies edema, Denies leg edema, Denies lightheadedness, Denies palpitations, Denies dyspnea, Denies dyspnea on exertion and Denies orthopnea Resp Denies cough, Denies dyspnea and Denies dyspnea on exertion GI Denies hematochezia and Denies change in stool character Musc Denies abnormal gait, Denies muscle cramps, Denies muscle weakness, Denies numbness, Denies radiating pain into limb and Denies tingling Neuro Denies abnormal gait, Denies dizziness, Denies syncope, Denies numbness, Denies tingling and Denies weakness Endo Denies palpitations Physical Exam Vital Signs: Last Vital Signs Pulse 75 02/02/23 13:36 BP 122/62 02/02/23 13:36 BMI result Body Mass Index 30.5 GENERAL APPEARANCE: in no acute distress, well developed, well nourished. NECK/THYROID: no carotid bruit, no jugular venous distention. SKIN: Dry skin on the hands with appearance similar to mechanical technologist hands. HEART: no murmurs, regular rate and rhythm, S1, S2 normal. LUNGS: Crackles at bases. ABDOMEN: normal, bowel sounds present, soft, nontender, nondistended. EXTREMITIES: no clubbing, cyanosis. Mild edema. PERIPHERAL PULSES: equal. NEUROLOGIC: nonfocal, alert and oriented. Assessment & Plan Assessment & Plan (1) Dyspnea on exertion: Code(s): R06.00 - Dyspnea, unspecified (2) CAD (coronary artery disease): Code(s): I25.10 - Atherosclerotic heart disease of [place] coronary artery without angina pectoris Qualifiers: Coronary Disease-Associated Artery/Lesion type: [place] artery [place] vs. transplanted heart: [place] heart Associated angina: without angina Qualified Code(s): I25.10 - Atherosclerotic heart disease of [place] coronary artery without angina pectoris Plan Pleasant 77-year-old gentleman is here for follow-up. He has history of coronary artery disease with previous PCI to RCA and LAD. His symptoms at that time were dyspnea on exertion. He has multiple reasons to be short of breath including lung disease, back issues and deconditioning and mild weight gain. He has been complaining of dyspnea on exertion on follow-up and we did stress testing which is showing fixed defect in the inferior wall. I explained to him that this can be due to diaphragm but could also be linked with the RCA stent ISR. I have explained to him that this is not an emergent situation and he can think about further management as a next step in my opinion will be a diagnostic angiogram. If he has significant ISR or progression of disease in RCA or LAD we will treat him to see if dyspnea improves. On the other hand if no significant disease is present then he has other reasons to be short of breath as mentioned above. He will think about it and discuss with his and get back to us. Thank you for allowing me to participate in the care of your patient. Please feel free to contact me if you have any questions. Coding Level of Care Code Est Pt Level 4 (17523) Diagnoses Dyspnea on exertion R06.00 CAD (coronary artery disease) I25.10 Coronary Disease-Associated Artery/Lesion type: [place] artery [place] vs. transplanted heart: [place] heart Associated angina: without angina
[2023-02-02 13:36] VITALS: BP 122/62; PULSE 75; BMI 30.5
== END 2023-02-02 14:00 | disposition home or self-care (01) ==
PROVIDERS: PCP Internal Medicine; Referring Provider Internal Medicine; Visit Provider Internal Medicine Cardiovascular Disease
DX: R06.00 Dyspnea, unspecified (principal); I25.10 Atherosclerotic heart disease of native coronary artery without angina pectoris
CPT/HCPCS: 99214

== ENCOUNTER → 2023-02-02 13:33 | Outpatient (BNVA) | payer MEDICARE, OTHER, SELFPAY | PROVIDERS: PCP Internal Medicine; Referring Provider Internal Medicine; Visit Provider Internal Medicine Cardiovascular Disease | DX: I25.10 Atherosclerotic heart disease of native coronary artery without angina pectoris (principal); R06.00 Dyspnea, unspecified | CPT/HCPCS: 99212 ==

== ENCOUNTER 2023-02-18 08:39 | Outpatient (AMB) | payer MEDICARE, OTHER, SELFPAY ==
[2023-02-18 08:46] VITALS: BP 132/72; PULSE 78; O2SAT 97; BMI 30.7
--- NOTE | 2023-02-18 08:46 | A.OFFPC_ITS ---
Vital Signs 02/18/23 08:46 Height 5 ft 6 in Weight 190 lb BMI 30.7 BP 132/72 Blood Pressure Location Lt brachial Position Sitting Pulse 78 Pulse Source Pulse Oximeter Pulse Oximetry (%) 97 Oxygen Delivery Method Room Air Intake Visit Reasons: DM Allergies lisinopril Allergy (Unknown, Verified 02/18/23 08:48) Unknown Penicillins [PENICILLINS] Allergy (Unknown, Verified 02/18/23 08:48) UNKNOWN REACTION-CHILDHOOD ALLERGY Medication List - Last Reconciled 02/18/23 by Elida Siddiqui MD amlodipine 5 mg PO DAILY 90 days aspirin (Adult Low Dose Aspirin) 81 mg PO DAILY atorvastatin 40 mg PO DAILY [AUTO PAP 6-20 cm H2O humidified AIR As directed] cholecalciferol (vitamin D3) 25 mcg PO DAILY clopidogrel 75 mg PO DAILY cyanocobalamin (vitamin B-12) 2,500 mcg PO DAILY fenofibrate 160 mg PO DAILY folic acid 0.4 mg PO DAILY linagliptin (Tradjenta) 5 mg PO DAILY 90 days pioglitazone 15 mg PO DAILY pregabalin 100 mg PO TID Tobacco use date assessed: 06/11/22 Fall risk assessment: No Falls in past year Last assessed Fall Risk: 02/18/23 Dental Screening Dental Screen Date: 02/18/23 Did you have a dental visit in the last 12 months?: Yes Did you have a dental problem in the last 6 months where you did not have access to dental care?: No Was dental information given to patient?: Patient has dentist HPI DM 2 HPI Details 77-year-old obese male with diabetes rc litus COPD hypertension hypercholesterolemia coronary artery disease atrial fibrillation obstructive sleep apnea last seen in May 2022. Patient is here for follow-up. Review of the notes has seen Cardiology. Patient has been complaining about shortness of breath on exertion and he does have coronary artery disease but the same time does have emphysema also, obesity and deconditioning. Stress test December 2022 Myocardial perfusion imaging study shows no evidence of ischemia. Fixed inferior defect which could indicate some combination of nontransmural infarct with diaphragmatic attenuation artifact. 2. Gated LVEF is 46% during stress and 43% during rest. 3. Transient ischemic dilatation not pre sent. Pulmonary notes appreciated diagnosis of borderline obstructive airway disease and has not been using any inhalers weight is more of the problem patient does have obstructive sleep apnea and is compliant with the CPAP Patient was seen for well visit in October 2022 A1c of 7.1 As for carotid artery disease patient had her right carotid endarterectomy and 2012 ultrasound under surveillance no interval issues September 2022 RIGHT: Moderate, hemodynamically significant stenosis of the proximal right internal carotid artery corresponding to a 50-79% stenosis by velocity criteria. 2. LEFT: Moderate, hemodynamically signi ficant stenosis of the proximal left internal carotid artery corresponding to a 50-79% stenosis by velocity criteria. 3. There is no change in the category se verity of disease when compared to the previous study dated 10/03/2013. R hip paininthe afternood 1 month, no swelling , no redness- sciatic nerve R area.- complains of sneezing a lot. - [facility] Medical History CAD (coronary artery disease) Cardiomyopathy Carotid stenosis Cataracts, bilateral Chronic otitis media COPD (chronic obstructive pulmonary disease) Erectile dysfunction Hypercholesterolemia Hypertension NICM (nonischemic cardiomyopathy) Obstructive sleep apnea Peripheral vascular disease Post herpetic neuralgia PVCs (premature ventricular contractions) Rotator cuff tear, left Tubular adenoma of colon Type 2 diabetes mellitus with hyperglycemia Surgical History History of cardiac catheterization History of carotid endarterectomy History of cataract surgery History of colonoscopy History of repair of rotator cuff History of tonsillectomy Family History (Updated 02/18/23 @ 08:50 by Faiza Stafford CMA) Father H/O ETOH abuse Hypertension Mother Hypertension Brother Diabetes Brother No problems noted. Sister No problems noted. Sister No problems noted. Social History Housing: House Alcohol intake: current Alcohol intake frequency: a few times a week Alcohol t ype: beer Patient Tobacco Use Status: Never used Tobacco e-Cigarette/Vaping Use: Never Used Second Hand Smoke Exposure: No Advance Directives Date on File: 11/17/21 service: No Current occupational status: employed Cognitive needs: No Hearing needs: Yes Vision needs: Yes Questionnaire PHQ-9 Over the last 2 weeks, how often have you been bothered by any of the following problems? 1. Little interest or pleasure in doing things: not at all 2. Feeling down, depressed, or hopeless: not at all 3. Trouble falling or staying asleep, or sleeping too much: not at all 4. Feeling tired or having little energy: several days 5. Poor appetite or overeating: not at all 6. Feeling bad about yourself - or that you are a failure or have let yourself or your family down: not at all 7. Trouble concentrating on things, such as reading the newspaper or watching television: not at all 8. Moving or speaking so slowly that other people could have noticed. Or the opposite - being so fidgety or restless that you have been moving around a lot more than usual: not at all 9. Thoughts that you would be better off or of hurting yourself in some way: not at all Total score: 1 Depression Screening Interpretation: Negative 83403 - PHQ-9 Billing: Yes Source: Developed by Drs. Marcos Phan, Holley Encinas, Tk aCr and colleagues, with an educational deonte from [employer]. Thrive Questionnaire Date Thrive assessed: 06/11/22 AUDIT C Alcohol Use Questionnaire (AUDIT-C) 1. How often do you have a drink containing alcohol?: 2-3 times a week 2. How many drinks containing alcohol do you have on a typical day when you are drinking?: 1 or 2 3. How often do you have six or more drinks on one occasion?: Never Total Score: 3 RENETTA-7 AMB Questionnaire RENETTA-7 Date RENETTA - 7 assessed: 06/11/22 Source: Developed by Drs. Marcos Phan, Holley Encinas, Tk Car and colleagues, with an educational deonte from [employer]. Physical exam (Primary Care) Vital Signs: Last Vital Signs Pulse 78 02/18/23 08:46 BP 132/72 02/18/23 08:46 Pulse Ox 97 02/18/23 08:46 Oxygen Delivery Method Room Air 02/18/23 08:46 BMI result Body Mass Index 30.7 Tobacco/Smoking Status: Tobacco use Status Tobacco use date assessed 06/11/22 02/18/23 08:51 Patient Tobacco Use Status Never used Tobacco 02/18/23 08:51 e-Cigarette/Vaping Use Never Used 02/18/23 08:51 PHQ-9: PHQ-9 Score PHQ-9: Total score 1 02/18/23 09:07 Depression Screening Interpretation: Negative Thrive Assessment: Date of Thrive Assessment Date Thrive assessed 06/11/22 02/18/23 08:51 Const General: alert; No acute distress Eyes Conjunctivae: conjunctivae normal Resp Auscultation: clear to auscultation bilaterally Cardio Rate: regular rate Rhythm: regular rhythm GI Inspection: Yes normal to inspection Extrem General: Yes normal to inspection and No edema Results AMB Hemoglobin A1c AMB Hemoglobin A1c 7.0 % Last Edit by Faiza Stafford CMA on 02/18/23 09 :07 Assessment and Plan Assessment & Plan (1) Type 2 diabetes mellitus with hyperglycemia: Comment: Dr. Hawthorne Code(s): E11.65 - Type 2 diabetes mellitus with hyperglycemia Qualifiers: Diabetes mellitus superintendent [employer] insulin use: without superintendent marine [employer] use Qualified Code(s): E11.65 - Type 2 diabetes mellitus with hyperglycemia Plan: Decrease the amount of carbohydrate intake, pasta, bread, rice and potatoes are all sugar and that is aside from all the sweet stuff, remember that fruits are good but they are Sweet also. Hemoglobin A1c goal of less than 7.0 patient a on pioglitazone. 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 and was told good pulses. (2) CAD (coronary artery disease): Code(s): I25.10 - Atherosclerotic heart disease of wrangell coronary artery without angina pectoris Qualifiers: Coronary Disease-Associated Artery/Lesion type: [place] artery [place] vs. transplanted heart: wrangell heart Associated angina: without angina Qualified Code(s): I25.10 - Atherosclerotic heart disease of wr[place] coronary artery without angina pectoris Plan: Control the cholesterol, weight, blood pressure, diabetes (3) Hypercholesterolemia: Code(s): E78.00 - Pure hypercholesterolemia, unspecified Plan: Avoid fried foods, chicken skin, eggs, butter margarine, pastries and meat. Be it pork or beef they have a lot of cholesterol LDL goal of less than 70 last blood work was in October 2021 (4) Hypertension: Code(s): I10 - Essential (primary) hypertension Qualifiers: Hypertension type: essential hypertension Qualified Code(s): I10 - Essential (primary) hypertension Plan: Continue with blood pressure medication. Decrease salt intake and exercise patient takes amlodipine 5 mg once a day (5) COPD (chronic obstructive pulmonary disease): Comment: PATIENT HAS ONLY BORDERLINE OBSTRUCTIVE AIRWAY DISORDER AND REALLY DOES NOT REQUIRED TO USE ANY BRONCHODILATOR INHALERS. Code(s): J44.9 - Chronic obstructive pulmonary disease, unspecified Qualifiers: COPD type: emphysema Emphysema type: unspecified Qualified Code(s): J43.9 - Emphysema, unspecified Plan: Patient has seen Pulmonary and COPD is borderline (6) Peripheral vascular disease: Code(s): I73.9 - Peripheral vascular disease, unspecified Plan: When sitting down elevate the legs, exercise, and support stockings (7) Atrial fibrillation: Code(s): I48.91 - Unspecified atrial fibrillation Plan: Continue with clopidogrel and aspirin (8) JITENDRA on CPAP: Comment: Known case of obstructive sleep apnea since 2017. Has been using CPAP very regularly all this time. REMAINS VERY COMPLIANT, OLD CPAP DEVICE WAS NOT CAPABLE OF TRANSMITTING THE COMPLIANCE DATA. HE HAS THE NEW CPAP MACHINE AND ADVISED TO START USING IT REGULARLY, WE SHOULD BE ABLE TO DOWNLOAD HIS COMPLIANCE IS WITH THIS NEW CPAP. Code(s): G47.33 - Obstructive sleep apnea (adult) (pediatric); Z99.89 - Dependence on other enabling machines and devices Plan: Continue to use the CPAP more than 4 hours a night and benefits from this (9) Bilateral carotid artery disease: Comment: 2011 - right carotid endarterectomy by Dr. Livingston September 2022 Code(s): I77.9 - Disorder of arteries and arterioles, unspecified Plan: This is continued to be monitored by vascular surgeon and ultrasound of the carotids regularly Orders: Orders Complete Blood Count Auto Diff Today E11.65 - Type 2 diabetes mellitus with hyperglycemia Lipid Panel Today E11.65 - Type 2 diabetes mellitus with hyperglycemia, E78.00 - Pure hypercholesterolemia, unspecified Vitamin B12 and Folate Today E11.65 - Type 2 diabetes mellitus with hyperglycemia Ferritin Today E11.65 - Type 2 diabetes mellitus with hyperglycemia Comprehensive Met. Panel Today E11.65 - Type 2 diabetes mellitus with hyperglycemia Creatinine Urine Today E11.65 - Type 2 diabetes mellitus with hyperglycemia Microalbumin, Random (w Creat) Today E11.65 - Type 2 diabetes mellitus with hyperglycemia Free T4 (Free Thyroxine) Today E11.65 - Type 2 diabetes mellitus with hyperglycemia Thyroid Stimulating Hormone Today E11.65 - Type 2 diabetes mellitus with hyperglycemia IRON PROFILE Today E11.65 - Type 2 diabetes mellitus with hyperglycemia Reticulocyte Count Today E11.65 - Type 2 diabetes mellitus with hyperglycemia Magnesium Today E11.65 - Type 2 diabetes mellitus with hyperglycemia AMB Hemoglobin A1c Today Z13.9 - Encounter for screening, unspecified Medications: New empagliflozin (Jardiance) 10 mg PO DAILY 30 tabs 3RF E11.65 - Type 2 diabetes mellitus with hyperglycemia Refilled amlodipine 5 mg PO DAILY 90 days 90 tabs 2RF I10 - Essential (primary) hypertension fenofibrate 160 mg PO DAILY 90 tabs 3RF E78.00 - Pure hypercholesterolemia, unspecified Discontinued pioglitazone Discontinued Reason: Ancillary Entered New Order 15 mg PO DAILY 90 tabs 3RF Coding Level of Care Code Est Pt Level 4 (51541) Diagnoses Type 2 diabetes mellitus with hyperglycemia, without long-term current use of insulin E11.65 Diabetes mellitus halfway insulin use: without superintendent marine [employer] use Coronary artery disease involving wrangell coronary artery of wr[place]ell heart without angina pectoris I25.10 Coronary Disease-Associated Artery/Lesion type: [place] artery [place] vs. transplanted heart: wr[place]ell heart Associated angina: without angina Hypercholesterolemia E78.00 Essential hypertension I10 Hypertension type: essential hypertension Pulmonary emphysema, unspecified emphysema type J43.9 COPD type: emphysema Emphysema type: unspecified Peripheral vascular disease I73.9 Atrial fibrillation I48.91 JITENDRA on CPAP G47.33; Z99.89 Bilateral carotid artery disease I77.9
== END 2023-02-18 09:32 | disposition home or self-care (01) ==
PROVIDERS: PCP Internal Medicine; Visit Provider Internal Medicine
DX: E11.65 Type 2 diabetes mellitus with hyperglycemia (principal); I10 Essential (primary) hypertension; J43.9 Emphysema, unspecified; I73.9 Peripheral vascular disease, unspecified; I48.91 Unspecified atrial fibrillation; I77.9 Disorder of arteries and arterioles, unspecified; I25.10 Atherosclerotic heart disease of native coronary artery without angina pectoris; E78.00 Pure hypercholesterolemia, unspecified; G47.33 Obstructive sleep apnea (adult) (pediatric); Z99.89 Dependence on other enabling machines and devices
CPT/HCPCS: 83036; 99214

== ENCOUNTER 2023-02-28 07:38 | Outpatient (REF) | payer MEDICARE, OTHER, SELFPAY ==
[2023-02-28 07:58] LABS: MANUAL DIFF FLAG NO
[2023-02-28 09:15] LABS: Basophils Absolute Auto 0.1 X10*3/uL (0.0-0.2); Eosinophils Absolute Auto 0.4 X10*3/uL (0.0-0.4); Eosinophils Percent Auto 6.8 % (0-4); Hematocrit 40.8 % (42.0-52.0); Hemoglobin 12.7 g/dl (14.0-18.0); Imm Gran Abs Auto 0.03 X10*3/uL (0.00-0.03); Imm Gran Pct Auto 0.5 % (0.0-0.4); Immature Retic Fraction 21.7 % (2.3-13.4); Lymphocytes Percent Auto 17.3 % (20-40); Mean Corpuscular HGB Conc 31.1 g/dl (31.0-36.0); Mean Corpuscular Hemoglobin 29.3 pg (27.0-33.0); Mean Platelet Volume 11.9 fL (9.4-12.4); Monocytes Absolute Auto 0.7 X10*3/uL (0.1-1.2); Monocytes Percent Auto 11.5 % (2-11); Neutrophils Absolute Auto 3.7 x10*3/uL (2.0-8.3); Neutrophils Percent Auto 62.9 % (45-73); Platelet Count 213 X10*3/uL (160-400); Red Blood Count 4.34 X10*6/uL (4.60-5.80); Red Cell Distribution Width 15.5 % (11.0-16.0); Retic HGB Equivalent 32.8 pg (30.0-35.0); Reticulocyte Percent 1.7 % (0.5-1.8); Reticulocytes Absolute 0.074 X10*6/uL (0.026-0.095); White Blood Count 5.9 X10*3/uL (4.8-10.8)
[2023-02-28 10:14] LABS: Alanine Aminotransferase 15 U/L (0-40); Alkaline Phosphatase 47 U/L (39-117); Anion Gap 14 (12-20); Aspartate Amino Transferase 26 U/L (5-37); Bilirubin Total 0.4 mg/dL (0.0-1.0); Blood Urea Nitrogen 24 mg/dL (9-16); Calcium 9.4 mg/dL (8.4-10.2); Carbon Dioxide 27 mmol/L (22-29); Chloride 107 mmol/L (96-108); Cholesterol 136 mg/dL (<200); Estimated Glomerular Filt Rate 38; Glucose Random 123 mg/dL (60-115); HDL Cholesterol 31 mg/dL (>40); Iron 50 mcg/dL (45-160); LDL Cholesterol Calculated 82 mg/dL (<100); Magnesium 2.2 mg/dL (1.6-2.6); Percent Iron Saturation 13 % (15-50); Potassium 4.9 mmol/L (3.3-5.1); Sodium 143 mmol/L (135-145); Total Iron Binding Capacity 373 mcg/dL (228-428); Total Protein 6.6 g/dL (6.5-8.0); Triglycerides 117 mg/dL (<150); Unsaturated Iron Binding 323 ug/dL
[2023-02-28 10:35] LABS: Ferritin 63 ng/mL (20-250); Free T4 (Free Thyroxine) 1.05 ng/dL (0.71-1.85); Thyroid Stimulating Hormone 1.09 uIU/mL (0.32-4.0)
[2023-02-28 10:37] LABS: Folate 16.8 ng/mL (> or = 4.0); Vitamin B12 1063 pg/mL (200-900)
[2023-02-28 10:41] LABS: Creatinine Urine 68.58 mg/dL; Microalbum/Creatinine Ratio Ur 72.9 ug/mg cr (<30)
== END 2023-02-28 07:39 | disposition home or self-care (01) ==
LOC: HO.LAB 07:38
PROVIDERS: PCP Internal Medicine; Visit Provider Internal Medicine
DX: E11.65 Type 2 diabetes mellitus with hyperglycemia (principal); E78.00 Pure hypercholesterolemia, unspecified
CPT/HCPCS: 36415; 80053; 80061; 82043; 82570; 82607; 82728; 82746; 83540; 83735; 84439; 84443; 85025; 85045

== ENCOUNTER 2023-03-10 15:54 | Outpatient (AMB) | payer MEDICARE, OTHER, SELFPAY ==
--- NOTE | 2023-03-10 16:05 | AM.OFFVISNUR ---
Intake Intake Visit Reasons: Flu vaccine Allergies lisinopril Allergy (Unknown, Verified 02/18/23 08:48) Unknown Penicillins [PENICILLINS] Allergy (Unknown, Verified 02/18/23 08:48) UNKNOWN REACTION-CHILDHOOD ALLERGY Office Procedures Flu Questionnaire Does the patient have a severe egg allergy?: No Does the patient have severe life threatening allergies?: No Does the patient have a fever or illness today?: No Has the patient ever had Guillain-Protem Syndrome?: No Has the patient ever had any past reaction to a flu shot?: No Immunizations flu vacc [id number] 6mos up(PF) 60 mcg(15 mcgx4)/0.5 mL IM syringe Performing Provider: Elida Siddiqui MD [facility] Administered by: Heaven Meza RN on 03/10/23 16:05 Dose Route Admin Location Dispensed Lot Number Expiration Date NDC Horticulture Worker 0.5 mL IM Left Deltoid 0.5 mL [id number] 11/27/23 [id number] [facility] V[facility] Given Date VIS Provided VIS Publication Date 03/10/23 Single Vaccine 21 Eligibility Eligibility Date Funding Source Not VFC Eligible 03/10/23 Private Coding Assessment & Plan Assessment & Plan Orders: Orders Influenza [id number] Immunization Today Z23 - Encounter for immunization
== END 2023-03-10 16:07 | disposition home or self-care (01) ==
PROVIDERS: PCP Internal Medicine; Visit Provider Internal Medicine
DX: Z23 Encounter for immunization (principal)
CPT/HCPCS: 90471; 90686

== ENCOUNTER 2023-03-23 10:27 | Outpatient (REF) | payer MEDICARE, OTHER, SELFPAY ==
[2023-03-23 11:07] LABS: Hematocrit 41.3 % (42.0-52.0); Hemoglobin 12.8 g/dl (14.0-18.0); Mean Corpuscular Hemoglobin 28.2 pg (27.0-33.0); Mean Platelet Volume 11.2 fL (9.4-12.4); Platelet Count 217 X10*3/uL (160-400); Red Blood Count 4.54 X10*6/uL (4.60-5.80); Red Cell Distribution Width 15.6 % (11.0-16.0); White Blood Count 8.3 X10*3/uL (4.8-10.8)
[2023-03-23 11:16] LABS: INTERNATIONAL NORM RATIO 1.2 (0.9-1.1); Prothrombin Time 15.1 SEC (11.1-13.3)
[2023-03-23 11:31] LABS: Anion Gap 14 (12-20); Blood Urea Nitrogen 19 mg/dL (9-16); Calcium 9.3 mg/dL (8.4-10.2); Carbon Dioxide 23 mmol/L (22-29); Chloride 108 mmol/L (96-108); Estimated Glomerular Filt Rate 40; Glucose Random 122 mg/dL (60-115); Potassium 4.4 mmol/L (3.3-5.1); Sodium 141 mmol/L (135-145)
== END 2023-03-23 10:28 | disposition home or self-care (01) ==
LOC: HO.LAB 10:27
PROVIDERS: PCP Internal Medicine; Visit Provider Internal Medicine Cardiovascular Disease
DX: Z13.89 Encounter for screening for other disorder (principal)
CPT/HCPCS: 36415; 80048; 85027; 85610

== ENCOUNTER 2023-03-23 12:09 | Inpatient (IN) | payer MEDICARE, OTHER, SELFPAY ==
[2023-03-23] VITALS (10 sets, daily range): BP systolic 114–153; BP diastolic 67–102; PULSE 75–165; RESP 15–32; TEMP 35.8–37.3; O2SAT 92–96; BMI 30.5
--- NOTE | ~2023-03-23 | US_ITS ---
EXAMINATION: US VENOUS ULTRASOUND WITH DOPPLER LOWER EXTREMITY, BILATERAL CLINICAL INFORMATION: Bilateral leg swelling COMPARISON: DVT study 07/18/2019 TECHNIQUE: Ultrasound of the deep veins is performed from the hip to the calf with compression sonography and color and pulse Doppler assessment. Spectral analysis with color-flow imaging is performed. FINDINGS: RIGHT: There is normal venous compression and respiratory variation and augmented flow. The visualized common femoral vein, superficial femoral vein, profunda femoral vein, popliteal vein, and the trifurcation region shows no evidence of deep venous thrombosis. There is no significant popliteal fossa cyst. LEFT: There is normal venous compression and respiratory variation and augmented flow. The visualized common femoral vein, superficial femoral vein, profunda femoral vein, popliteal vein, and the trifurcation region shows no evidence of deep venous thrombosis. There is no significant popliteal fossa cyst. If the patient's symptoms persist, followup ultrasound in 5 days 7 days might be of value to exclude proximal propagation from a non-visualized calf vein. US/US venous duplex LE BI IMPRESSION: No DVT demonstrated in either lower extremity.
--- NOTE | ~2023-03-23 | XR_ITS ---
EXAMINATION: XR CHEST CLINICAL INFORMATION: Shortness of breath COMPARISON: 05/25/2022 TECHNIQUE: 2 views of the chest were obtained. FINDINGS: Lungs are well expanded. A subtle, somewhat hazy opacity in the posteroinferior right lower lobe is difficult to further characterize and could represent mild atelectasis or perhaps pneumonia, if the patient has clinically developed cough, fever and/or leukocytosis. There is no overt consolidation or pleural effusion. No pneumothorax. Cardiac silhouette is borderline enlarged with transverse cardiothoracic ratio of 55%. There is atherosclerotic calcification of aorta and coronary arteries. The visualized bones are intact. A wire/electrode projects over soft tissues at the right pack. XR/XR chest 2V IMPRESSION: Cardiac silhouette is mildly enlarged. However, no evidence of pulmonary edema. A subtle opacity in the posteroinferior right lung base is likely from mild atelectasis rather than infiltrate. Clinical correlation required.
--- NOTE | 2023-03-23 13:23 | ECG_ITS ---
Test Reason : sob Blood Pressure : / mmHG Vent. Rate : 151 BPM Atrial Rate : 000 BPM P-R Int : 000 ms QRS Dur : 134 ms QT Int : 346 ms P-R-T Axes : 000 -66 109 degrees QTc Int : 548 ms Atrial fibrillation with rapid ventricular response with premature ventricular or aberrantly conducted complexes Left axis deviation Right bundle branch block Left anterior fascicular block T wave abnormality, consider lateral ischemia Abnormal ECG When compared with ECG of 04-JUN-2013 08:16, Atrial fibrillation has replaced Sinus rhythm Vent. rate has increased BY 72 BPM T wave inversion now evident in Lateral leads Left anterior fascicular block is new Referred By: Gary Zhu Electronically Signed By:SABINO ANDERSON MD
--- NOTE | 2023-03-23 13:25 | ED_ITS ---
HPI - General Adult General Chief complaint: Dyspnea Stated complaint: SOB Loss of Taste Time Seen by Provider: 03/23/23 14:31 Related Data Home Medications Medication Instructions Recorded Confirmed aspirin 81 mg tablet,delayed 81 mg PO DAILY 03/12/20 03/23/23 release (Adult Low Dose Aspirin) folic acid 400 mcg tablet 0.4 mg PO DAILY 03/12/20 03/23/23 cholecalciferol (vitamin D3) 25 25 mcg PO DAILY 08/19/21 03/23/23 mcg (1,000 unit) capsule cyanocobalamin (vitamin B-12) 2,500 mcg PO DAILY 08/19/21 03/23/23 2,500 mcg tablet pregabalin 100 mg capsule 100 mg PO TID 09/21/21 03/23/23 ciclopirox 0.77 % topical cream 1 appl topical BID 03/23/23 03/23/23 Previous Rx's Medication Instructions Recorded linagliptin 5 mg tablet (Tradjenta) 5 mg PO DAILY 90 days #90 tabs 02/12/22 AUTO PAP 6-20 cm H2O humidified AIR #1 ea 04/29/22 clopidogrel 75 mg tablet 75 mg PO DAILY #90 tabs 05/13/22 amlodipine 5 mg tablet 5 mg PO DAILY 90 days #90 tabs 02/18/23 empagliflozin 10 mg tablet 10 mg PO DAILY #30 tabs 02/18/23 (Jardiance) fenofibrate 160 mg tablet 160 mg PO DAILY #90 tabs 02/18/23 atorvastatin 40 mg tablet 40 mg PO DAILY #90 tabs 02/22/23 Allergies Allergy/AdvReac Type Severity Reaction Status Date / Time lisinopril Allergy Unknown Unknown Verified 02/18/23 08:48 Penicillins [PENICILLINS] Allergy Unknown UNKNOWN Verified 02/18/23 08:48 REACTION-CHILDHOOD ALLERGY [facility] Past Medical History Medical History Cardiomyopathy Cataracts, bilateral Chronic otitis media Peripheral vascular disease Type 2 diabetes mellitus with hyperglycemia Erectile dysfunction Post herpetic neuralgia COPD (chronic obstructive pulmonary disease) Obstructive sleep apnea Rotator cuff tear, left Carotid stenosis Tubular adenoma of colon Hypertension Hypercholesterolemia PVCs (premature ventricular contractions) NICM (nonischemic cardiomyopathy) CAD (coronary artery disease) Surgical History History of cardiac radiofrequency ablation History of colonoscopy History of cataract surgery History of repair of rotator cuff History of cardiac catheterization History of tonsillectomy History of carotid endarterectomy Family History Family History Father H/O ETOH abuse Hypertension Mother Hypertension Brother Diabetes Brother No problems noted. Sister No problems noted. Sister No problems noted. Social History Social History Housing: House Do you presently have visiting nurse or other home services: No Alcohol intake: current Alcohol intake frequency: a few times a week Alcohol type: beer Patient Tobacco Use Status: Never used Tobacco e-Cigarette/Vaping Use: Never Used Second Hand Smoke Exposure: No Use of substances other than those prescribed or required for medical reasons: No Currently Displaying Signs/Symptoms of Drug Intoxication Withdrawal: No Have you been hit, kicked, punched, or otherwise hurt by someone within the past year? If so, by whom?: No Do you feel safe in your current relationship?: Yes Is there a partner from a previous relationship who is making you feel unsafe now?: No Are you made to feel afraid or neglected: No Are you DNR?: No Advance Directives: Yes Advance Directives on File: Yes Advance Directives Date on File: 11/17/21 Nutrition Risks: No Nutritional Risk service: No Current occupational status: employed Cognitive needs: No Hearing needs: Yes Vision needs: Yes Physical Exam ED Vital Signs: Vital Signs - 24 hr 03/23/23 13:21 03/23/23 14:41 03/23/23 15:17 Temperature 96.4 F L Pulse Rate 121 H 165 H 127 H Respiratory Rate 15 22 H 28 H Blood Pressure 133/67 114/90 H 153/102 H Pulse Oximetry 94 96 94 Oxygen Delivery Method Room Air Room Air Room Air 03/23/23 15:50 Temperature 99.1 F Pulse Rate 95 Respiratory Rate 30 H Blood Pressure 123/87 Pulse Oximetry 95 Oxygen Delivery Method Room Air BMI result Body Mass Index 30.5 Course Course Course Narrative: CAMILLE; Presents to the ED for SOB and loss of taste for a couple of days. He denes any chest pain. patient us due to heart catheter by Cardioligsti next week. no URI SYmptoms. labs and EKG ordered . MIld bilateral pitting edema. lUNgs clear. Ultrasound of legs ordered Medications Administered Generic Name Dose Route Start Last Admin Trade Name Freq PRN Reason Stop Dose Admin Apixaban 5 mg 03/23/23 21:00 03/26/23 08:53 Apixaban 5 Mg Tablet PO 5 mg BID MARIA FERNANDA Administration Aspirin 81 mg 03/24/23 09:00 03/26/23 08:53 Aspirin Enteric Coated 81 Mg Tablet.Dr PO 81 mg DAILY MARIA FERNANDA Administration Atorvastatin Calcium 40 mg 03/24/23 09:00 03/26/23 08:53 Atorvastatin Calcium 40 Mg Tablet PO 40 mg DAILY MARIA FERNANDA Administration Clotrimazole 1 appl 03/23/23 21:00 03/26/23 09:00 Clotrimazole 1 % Cream 15 Gm Tube TOPICAL 1 appl BID MARIA FERNANDA Administration Cyanocobalamin 2,500 mcg 03/24/23 09:00 03/26/23 08:50 Cyanocobalamin (Vitamin B-12) 500 Mcg Tablet PO 2,500 mcg DAILY MARIA FERNANDA Administration Empagliflozin 10 mg 03/24/23 09:00 03/26/23 08:53 Empagliflozin 10 Mg Tablet PO 10 mg DAILY MARIA FERNANDA Administration Fenofibrate 160 mg 03/24/23 09:00 03/26/23 08:53 Fenofibrate 160 Mg Tablet PO 160 mg DAILY MARIA FERNANDA Administration Folic Acid 0.5 mg 03/24/23 09:00 03/26/23 08:51 Folic Acid 1 Mg Tablet PO 0.5 mg DAILY MARIA FERNANDA Administration Furosemide 20 mg 03/24/23 18:00 03/26/23 17:45 Furosemide 20 Mg/2 Ml Vial IVPUSH 20 mg BID@0900,1800 [facility] Administration Protocol Amiodarone HCl 900 mg/ Sodium 518 mls @ 34.533 mls/hr 03/25/23 14:45 03/26/23 17:23 Chloride IVCONT 0.5 mg/min .Q15H1M [facility] 17.27 mls/hr Administration Protocol 1 MG/MIN Insulin Human Lispro 0 unit 03/23/23 21:00 03/26/23 17:32 Insulin Lispro 100 Unit/Ml 3 Ml Vial SUBCUT 2 unit QIDACHS [facility] Administration Protocol Metoprolol Tartrate 25 mg 03/24/23 13:00 03/26/23 17:32 Metoprolol Tartrate 25 Mg Tablet PO 25 mg QID MARIA FERNANDA Administration Protocol Pregabalin 100 mg 03/23/23 21:00 03/26/23 17:32 Pregabalin 100 Mg Capsule PO 100 mg TID MARIA FERNANDA Administration Sodium Chloride 3 ml 03/24/23 00:00 03/26/23 17:32 0.9 % Sodium Chloride Flush 3 Ml Syringe IVFLUSH 3 ml QSHIFT MARIA FERNANDA Administration Vitamin D 25 mcg 03/24/23 09:00 03/26/23 08:52 Cholecalciferol (Vitamin D3) 25 Mcg Tablet PO 25 mcg DAILY MARIA FERNANDA Administration Discontinued Medications Generic Name Dose Route Start Last Admin Trade Name Freq PRN Reason Stop Dose Admin Amlodipine Besylate 5 mg 03/24/23 09:00 03/26/23 08:52 Amlodipine Besylate 5 Mg Tablet PO 5 mg DAILY MARIA FERNANDA Administration Protocol Diltiazem HCl 10 mg 03/23/23 14:54 03/23/23 15:06 Diltiazem Hcl 50 Mg/10 Ml Vial IVPUSH 03/23/23 14:55 10 mg STAT STA Administration Diltiazem HCl 10 mg 03/23/23 15:42 03/23/23 15:59 Diltiazem Hcl 50 Mg/10 Ml Vial IVPUSH 03/23/23 15:43 10 mg STAT STA Administration Calcium Gluconate 2 gm in 100 mls @ 50 mls/hr 03/23/23 14:54 03/23/23 17:19 Calcium Gluconate IV 03/23/23 16:53 Infused ONCE ONE Infusion Diltiazem HCl 125 mg/ Sodium 125 mls @ 0 mls/hr 03/23/23 16:45 03/25/23 13:40 Chloride IVCONT Infused .Q0M MARIA FERNANDA Titration Protocol Per Protocol Amiodarone HCl 900 mg/ Sodium 518 mls @ 34.533 mls/hr 03/25/23 13:30 03/25/23 15:05 Chloride IVCONT Not Given .Q15H1M MARIA FERNANDA Protocol 1 MG/MIN Amiodarone HCl 150 mg in 100 mls @ 600 mls/hr 03/25/23 13:20 03/25/23 15:20 Nexterone IV 03/25/23 13:29 Infused ONCE ONE Infusion Metoprolol Tartrate 25 mg 03/23/23 21:00 03/24/23 07:51 Metoprolol Tartrate 25 Mg Tablet PO 25 mg BID MARIA FERNANDA Administration Protocol Medical Decision Making Medical Decision Making [facility] Narrative: -my interpretation of labs: Normal hematology, chemistry at baseline, chronic elevation of creatinine. Patient's BNP is 1402, no previous BNPs for comparison, troponin 1. 51.2 with no chest pain, elevation in troponin likely secondary to atrial fibrillation and elevation of BNP -my interpretation of EKG: Atrial fibrillation with RVR, 101 51, QTC 548 -my interpretation of chest x-ray: Possible atelectasis, no CHF -patient received 2 doses of Cardizem 10 mg IV push, heart rate improved from 160s to 120, patient is now on a Cardizem drip. -patient has no chest pain -discussed the patient with Dr. Yeboah, patient being admitted Differential Diagnosis Differential Diagnoses: The differential diagnosis associated with the presentation includes (New onset atrial fibrillation, atrial flutter, CHF, pneumonia, viral syndrome) Admission/Observation Consideration of admission/observation: Escalation of care including admission/observation considered Consult Healthcare Provider Management of the patient was discussed with: Hospitalist Lab Data [facility] Lab Attestation statement: I reviewed the patient's lab results. 03/26/23 06:36 03/26/23 06:36 Labs: Lab Results 03/23/23 03/23/23 Range/Units 13:43 14:44 WBC 8.0 (4.8-10.8) X10*3/uL RBC 4.41 L (4.60-5.80) X10*6/uL Hgb 12.5 L (14.0-18.0) g/dl Hct 40.0 L (42.0-52.0) % MCV 90.7 (80.0-98.0) fL MCH 28.3 (27.0-33.0) pg MCHC 31.3 (31.0-36.0) g/dl RDW 15.6 (11.0-16.0) % Plt Count 214 (160-400) X10*3/uL MPV 11.4 (9.4-12.4) fL Immature Gran % (Auto) 0.5 H (0.0-0.4) % Neut % (Auto) 73.2 H (45-73) % Lymph % (Auto) 11.3 L (20-40) % [place] % (Auto) 13.2 H (2-11) % Eos % (Auto) 1.2 (0-4) % Baso % (Auto) 0.6 (0-2) % Lymph # (Auto) 0.9 L (1.2-4.9) X10*3/uL [place] # (Auto) 1.1 (0.1-1.2) X10*3/uL Eos # (Auto) 0.1 (0.0-0.4) X10*3/uL Baso # (Auto) 0.1 (0.0-0.2) X10*3/uL Abs Immat Gran (auto) 0.04 H (0.00-0.03) X10*3/uL Absolute Neuts (auto) 5.9 (2.0-8.3) x10*3/uL Absolute Nucleated RBC 0.000 (0.0-0.012) X10*3/uL Nucleated RBC % (auto) 0.0 (0.0-0.2) /100WBC PT 15.2 H (11.1-13.3) SEC INR 1.3 H (0.9-1.1) APTT 31.4 (26.0-36.4) SEC Sodium 141 (135-145) mmol/L Potassium 4.1 (3.3-5.1) mmol/L Chloride 105 (96-108) mmol/L Carbon Dioxide 24 (22-29) mmol/L Anion Gap 16 (12-20) BUN 21 H (9-16) mg/dL Creatinine 1.74 H (0.5-1.4) mg/dL Estim Creat Clear Calc 35.9 Estimated GFR 38 Random Glucose 147 H (60-115) mg/dL Calcium 9.2 (8.4-10.2) mg/dL Magnesium 2.1 (1.6-2.6) mg/dL Total Bilirubin 1.1 H (0.0-1.0) mg/dL AST 97 H (5-37) U/L ALT 45 H (0-40) U/L Alkaline Phosphatase 49 (39-117) U/L Troponin I High Sens 51.2 H (<3.5-35.0) ng/L B-Natriuretic Peptide 1402 H (<100) pg/mL Total Protein 6.9 (6.5-8.0) g/dL Albumin 4.1 (3.5-5.0) g/dL TSH 0.76 (0.32-4.0) uIU/mL Influenza Type A (PCR) NEGATIVE (Negative) Influenza Type B (PCR) NEGATIVE (Negative) RSV RNA Qual (PCR) NEGATIVE (Negative) SARS-CoV-2 RNA (RT-PCR) NEGATIVE (Negative) Independent Interpretation I performed an independent interpretation of an: Plain X-Ray Radiology Impression Discussion of test interpretation with radiology: I have reviewed the radiologist's reading. Radiologist Impression: FINDINGS: Lungs are well expanded. A subtle, somewhat hazy opacity in the posteroinferior right lower lobe is difficult to further characterize and could represent mild atelectasis or perhaps pneumonia, if the patient has clinically developed cough, fever and/or leukocytosis. There is no overt consolidation or pleural effusion. No pneumothorax. Cardiac silhouette is borderline enlarged with transverse cardiothoracic ratio of 55%. There is atherosclerotic calcification of aorta and coronary arteries. The visualized bones are intact. A wire/electrode projects over soft tissues at the right pack. XR/XR chest 2V IMPRESSION: Cardiac silhouette is mildly enlarged. However, no evidence of pulmonary edema. A subtle opacity in the posteroinferior right lung base is likely from mild atelectasis rather than infiltrate. Clinical correlation required. Critical Care Time Critical Care Time Critical Care Time: Yes Total Critical Care Time: 60 Attestation: I have personally provided critical care time. Time includes review of lab data, radiology results, discussion with consultants, and monitoring for potential decompensation. Intervention performed as documented. Discharge Plan Discharge Clinical Impression: Atrial fibrillation with RVR Patient Disposition: Admitted As Inpatient Interventions: Admission Worksheet (ED) Last Done: 03/23/23 20:53 Discharge Date/Time: 03/23/23 20:40
[2023-03-23 14:02] LABS: MANUAL DIFF FLAG NO
[2023-03-23 14:03] LABS: Basophils Absolute Auto 0.1 X10*3/uL (0.0-0.2); Basophils Percent Auto 0.6 % (0-2); Eosinophils Absolute Auto 0.1 X10*3/uL (0.0-0.4); Eosinophils Percent Auto 1.2 % (0-4); Hemoglobin 12.5 g/dl (14.0-18.0); Imm Gran Abs Auto 0.04 X10*3/uL (0.00-0.03); Imm Gran Pct Auto 0.5 % (0.0-0.4); Lymphocytes Absolute Auto 0.9 X10*3/uL (1.2-4.9); Lymphocytes Percent Auto 11.3 % (20-40); Mean Corpuscular HGB Conc 31.3 g/dl (31.0-36.0); Mean Corpuscular Hemoglobin 28.3 pg (27.0-33.0); Mean Corpuscular Volume 90.7 fL (80.0-98.0); Mean Platelet Volume 11.4 fL (9.4-12.4); Monocytes Absolute Auto 1.1 X10*3/uL (0.1-1.2); Monocytes Percent Auto 13.2 % (2-11); Neutrophils Absolute Auto 5.9 x10*3/uL (2.0-8.3); Neutrophils Percent Auto 73.2 % (45-73); Platelet Count 214 X10*3/uL (160-400); Red Blood Count 4.41 X10*6/uL (4.60-5.80); Red Cell Distribution Width 15.6 % (11.0-16.0)
[2023-03-23 14:06] LABS: INTERNATIONAL NORM RATIO 1.3 (0.9-1.1); Prothrombin Time 15.2 SEC (11.1-13.3)
[2023-03-23 14:09] LABS: Partial Thromboplastin Time 31.4 SEC (26.0-36.4)
[2023-03-23 14:26] LABS: B Type Natriuretic Peptide 1402 pg/mL (<100)
[2023-03-23 14:27] LABS: Troponin-I High Sensitivity 51.2 ng/L (<3.5-35.0)
[2023-03-23 14:39] LABS: Influenza A PCR NEGATIVE (Negative); Influenza B PCR NEGATIVE (Negative); Resp Syncy Virus RNA Qual PCR NEGATIVE (Negative); SARS COV2 PCR INHOUSE NEGATIVE (Negative)
[2023-03-23 15:04] LABS: Alanine Aminotransferase 45 U/L (0-40); Albumin Level 4.1 g/dL (3.5-5.0); Alkaline Phosphatase 49 U/L (39-117); Anion Gap 16 (12-20); Aspartate Amino Transferase 97 U/L (5-37); Bilirubin Total 1.1 mg/dL (0.0-1.0); Blood Urea Nitrogen 21 mg/dL (9-16); Calcium 9.2 mg/dL (8.4-10.2); Carbon Dioxide 24 mmol/L (22-29); Chloride 105 mmol/L (96-108); Creatinine Clr Calc Pharmacy 35.9; Estimated Glomerular Filt Rate 38; Glucose Random 147 mg/dL (60-115); Potassium 4.1 mmol/L (3.3-5.1); Sodium 141 mmol/L (135-145); Total Protein 6.9 g/dL (6.5-8.0)
[2023-03-23] MEDS: dilTIAZem HCL 50 MG/10 ML VIAL 10 MG IVPUSH ×2 (15:06→15:59)
[2023-03-23] MEDS: Calcium Gluconate/NaCl,Iso-Osm 2 GM/100 ML PLAST..BAG IV (15:06)
--- NOTE | 2023-03-23 15:15 | PC.NURSE ---
alert and oriented, coming in from home for shortness of breath over past couple weeks. new afib on ekg, IV established, labs drawn and sent. medicated per the JUL.
[2023-03-23] MEDS: dilTIAZem HCL 125 MG in 0.9 % Sodium Chloride 100 ML 10 MG IVCONT (17:21)
--- NOTE | 2023-03-23 17:22 | PC.NURSE ---
cardizem drip started at 10mg/h. patient up to use urinal in room, voided approx 200mL.
--- NOTE | 2023-03-23 17:23 | PHA.MEDREC ---
Pharmacy Consult ? Medication Reconciliation Pharmacy has completed the medication reconciliation. Patient confirmed medications. Caitye Dr. Siddiqui's last PCP note to compared what patient should be on. Patient had a list that stated jaridance, fenofibrate and folic acid were BID meds, however typically they are not given twice a day and the prescription states and Dr. Siddiqui notes state daily therefore I left as a daily medication. Tonya Menard, JvD
--- NOTE | 2023-03-23 18:03 | PC.NURSE ---
increased cardizem drip to 15mg/hr. hospitalist meeting with patient at this time
--- NOTE | 2023-03-23 18:23 | P.HPHOSP_ITS ---
History of Present Illness Date of Service: 03/23/23 Attending physician on admission: [facility] Chief Complaint: sob 77-year-old male with history of coronary artery disease, stable angina, nonischemic cardiomyopathy, hyperlipidemia, hypertension, COPD, [id number] type 2 diabetes, JITENDRA compliant with CPAP, peripheral artery disease on DAPT, and history of frequent PVC's previously treated with amiodorone but dc'd due to pulmonary complication s/p cardiac ablation presented to the ED for evaluation of shortness of breath. He has dyspnea on exertion at baseline, but over the last two weeks has had progressively worsening dyspnea at rest and with exertion along with wheezing with exertion. He states about 2 weeks ago he developed a cough with loss of taste and anorexia. He denies any lightheadedness, near syncope, palpitations, or chest pain. No orthopnea or PND. He does have bilateral pedal edema but states this is longstanding. Reports occassional etoh use. No smoking or drug use. On arrival, patient tachycardic and tachypneic, but no hypotension. Heart rates have been ranging 120-165. He was given 10 mg IV diltiazem x2 with minimal improvement in heart rate and remained in atrial fibrillation with RVR following calcium gluconate. Subsequently, started on diltiazem drip. Hematology labs baseline. Renal function baseline, electrolyte levels normal though magnesium level is pending. AST 97, ALT 45. Initial troponin 51.2, repeat pending. BNP 1402. TSH pending. He has negative for COVID-19, RSV, influenza. EKG shows atrial fibrillation with RVR and PVCs, rate 151 without any BRIAN or depressions. Review of Systems 2 Review of Systems: General: No fevers, malaise, unintentional weight loss HEENT: No blurred vision, diplopia. No sore throat, nasal congestion, rhinorrhea, sinus pain, ear pain Cardiovascular: No chest pain, palpitations. +BLE edema Respiratory: +shortness of breath, +wheezing, +cough. No orthopnea, PND GI: No abdominal pain, nausea, vomiting, diarrhea, constipation, melena, hematochezia : No dysuria, hematuria, increased urinary frequency, decreased urinary output MSK: No myalgia, back pain Neuro: No headaches, weakness, paresthesias Skin: No rashes or lesions [facility] Medical History Cardiomyopathy Cataracts, bilateral Chronic otitis media Peripheral vascular disease Type 2 diabetes mellitus with hyperglycemia Erectile dysfunction Post herpetic neuralgia COPD (chronic obstructive pulmonary disease) Obstructive sleep apnea Rotator cuff tear, left Carotid stenosis Tubular adenoma of colon Hypertension Hypercholesterolemia PVCs (premature ventricular contractions) NICM (nonischemic cardiomyopathy) CAD (coronary artery disease) Family History Father H/O ETOH abuse Hypertension Mother Hypertension Brother Diabetes Brother No problems noted. Sister No problems noted. Sister No problems noted. Surgical History History of cardiac radiofrequency ablation History of colonoscopy History of cataract surgery History of repair of rotator cuff History of cardiac catheterization History of tonsillectomy History of carotid endarterectomy Social History Housing: House Alcohol intake: current Alcohol intake frequency: a few times a week Alcohol type: beer Patient Tobacco Use Status: Never used Tobacco e-Cigarette/Vaping Use: Never Used Second Hand Smoke Exposure: No Advance Directives: Yes Advance Directives on File: Yes Advance Directives Date on File: 11/17/21 service: No Current occupational status: employed Cognitive needs: No Hearing needs: Yes Vision needs: Yes Meds Allergies Allergy/AdvReac Type Severity Reaction Status Date / Time lisinopril Allergy Unknown Unknown Verified 02/18/23 08:48 Penicillins [PENICILLINS] Allergy Unknown UNKNOWN Verified 02/18/23 08:48 REACTION-CHILDHOOD ALLERGY Active Medications: Current Medications Acetaminophen (Acetaminophen 325 Mg Tablet) 650 mg PO Q6H PRN PRN Reason: Pain, Mild (Pain Scale 1-3) Apixaban (Apixaban 5 Mg Tablet) 5 mg PO BID MARIA FERNANDA Docusate Sodium (Docusate Sodium 100 Mg Capsule) 100 mg PO DAILY PRN PRN Reason: Constipation Diltiazem HCl 125 mg/ Sodium (Chloride) 125 mls @ 0 mls/hr IVCONT .Q0M MARIA FERNANDA; Protocol Last Titration: 03/23/23 18:03 Dose: 15 mg/hr, 15 mls/hr Ondansetron HCl (Ondansetron Hcl 4 Mg/2 Ml Vial) 4 mg IVPUSH Q8H PRN PRN Reason: Nausea and Vomiting Sodium Chloride (0.9 % Sodium Chloride Flush 3 Ml Syringe) [address] [facility] Home Medications Medication Instructions Recorded Confirmed Last Taken Type aspirin 81 mg tablet,delayed 81 mg PO DAILY 03/12/20 03/23/23 Unknown History release (Adult Low Dose Aspirin) folic acid 400 mcg tablet 0.4 mg PO DAILY 03/12/20 03/23/23 Unknown History cholecalciferol (vitamin D3) 25 25 mcg PO DAILY 08/19/21 03/23/23 Unknown History mcg (1,000 unit) capsule cyanocobalamin (vitamin B-12) 2,500 mcg PO DAILY 08/19/21 03/23/23 Unknown History 2,500 mcg tablet pregabalin 100 mg capsule 100 mg PO TID 09/21/21 03/23/23 Unknown History ciclopirox 0.77 % topical cream 1 appl topical BID 03/23/23 03/23/23 Unknown History Physical Exam 2 Vital Signs and Narrative: Vital Signs: Last Vital Signs Temp 99.1 F 03/23/23 15:50 Pulse 140 H 03/23/23 17:20 Resp 32 H 03/23/23 17:20 BP 128/83 03/23/23 17:20 Pulse Ox 94 03/23/23 17:20 O2 Del Method Room Air 03/23/23 17:20 BMI result Body Mass Index 30.5 Constitutional - Awake and Alert, No apparent distress Eyes - PERRLA, EOMI Cardiovascular - S1S2, irregularly irregular tachycardia, 1+ ble edema Respiratory - Normal lung expansion, Normal respiratory effort, No respiratory distress, faint right sided basilar crackles Gastrointestinal - NT / ND; +BS; No rebound or guarding Extremities - no calf tenderness bilaterally, no swelling Skin - Warm/Dry Neurological - Alert & oriented x3 Psychological - Appropriate affect Results Labs 03/23/23 13:43 03/23/23 14:44 Labs: Laboratory Results - last 24 hr 03/23/23 03/23/23 13:43 14:44 MCV 90.7 MCH 28.3 MCHC 31.3 RDW 15.6 Plt Count 214 MPV 11.4 Immature Gran % (Auto) 0.5 H Neut % (Auto) 73.2 H Lymph % (Auto) 11.3 L [place] % (Auto) 13.2 H Eos % (Auto) 1.2 Baso % (Auto) 0.6 Lymph # (Auto) 0.9 L [place] # (Auto) 1.1 Eos # (Auto) 0.1 Baso # (Auto) 0.1 Abs Immat Gran (auto) 0.04 H Absolute Neuts (auto) 5.9 Absolute Nucleated RBC 0.000 Nucleated RBC % (auto) 0.0 PT 15.2 H INR 1.3 H APTT 31.4 Anion Gap 16 Estim Creat Clear Calc 35.9 Estimated GFR 38 Random Glucose 147 H Calcium 9.2 Total Bilirubin 1.1 H AST 97 H ALT 45 H Alkaline Phosphatase 49 B-Natriuretic Peptide 1402 H Total Protein 6.9 Albumin 4.1 Influenza Type A (PCR) NEGATIVE Influenza Type B (PCR) NEGATIVE RSV RNA Qual (PCR) NEGATIVE SARS-CoV-2 RNA (RT-PCR) NEGATIVE Imaging Radiologist's Impressions: Impressions Venous Duplex 03/23/23 14:15 IMPRESSION: No DVT demonstrated in either lower extremity. Chest X-Ray 03/23/23 15:05 IMPRESSION: Cardiac silhouette is mildly enlarged. However, no evidence of pulmonary edema. A subtle opacity in the posteroinferior right lung base is likely from mild atelectasis rather than infiltrate. Clinical correlation required. Assessment and Plan (1) Atrial fibrillation with RVR: Status: Acute Plan 77-year-old male with history of coronary artery disease, stable angina, nonischemic cardiomyopathy, hyperlipidemia, hypertension, COPD, [id number] type 2 diabetes, JITENDRA compliant with CPAP, peripheral artery disease on DAPT, and history of frequent PVC's previously treated with amiodorone but dc'd due to pulmonary complication s/p cardiac ablation admitted for new onset atrial fibrillation with RVR. #New onset atrial fibrillation with RVR -EKG with afib rvr, rate 151, without brian or depressions -continue diltiazem drip per protocol -Initiate metoprolol 25mg BID -August Vasc score 5. Initiate eliquis 5mg BID- no contraindication to anticoagulation -echocardiogram ordered -cardiology consult -cardiac diet -monitor on telemetry -TSH and magnesium levels pending #Elevated BNP -suspect has some degree of CHF, but clinically euvolemic -echo as above #Elevated troponins -initial troponin 51, repeat 58.7 -denies chest pain, EKG without acute ischemic changes -likely demand due to AFib with RVR # [id number] type 2 diabetes -POC glucose -diabetic diet -Humalog on sliding scale # CAD/hld -continue asa, statin #PAD -Continue asa, hold plavix due to eliquis initation #HTN -blood pressure reasonably controlled -initiate metoprolol 25 mg b.i.d.. Continue amlodipine # COPD -no acute exacerbation -albuterol p.r.n. # JITENDRA -CPAP at bedtime DVT prophylaxis-Eliquis Full code Patient requires inpatient stay at least 2 midnights for management of new onset atrial fibrillation with RVR on diltiazem per protocol Time Spent With Patient Time: Total time managing care of this patient today ____ minutes. Quality Stroke Does the patient have a stroke diagnosis?: No VTE Prior VTE?: No VTE Risk Level:: Medical - moderate - high VTE Device Contraindication: Treatment Not Indicated VTE Drug Contraindication: N/A - Med Ordered
[2023-03-23 18:45] LABS: Troponin-I High Sensitivity 58.7 ng/L (<3.5-35.0)
[2023-03-23 19:05] LABS: Magnesium 2.1 mg/dL (1.6-2.6)
[2023-03-23 19:20] LABS: TSH reflex Free T4 0.76 uIU/mL (0.32-4.0)
--- NOTE | 2023-03-23 20:13 | PC.NURSE ---
Report given to Shanelle on [employer].
[2023-03-23 21:11] LABS: Glucose, Whole Blood 161 mg/dL (60-115)
[2023-03-23] MEDS: Metoprolol Tartrate 25 MG TABLET PO (22:24)
[2023-03-23] MEDS: Apixaban 5 MG TABLET PO (22:24)
[2023-03-23] MEDS: Pregabalin 100 MG CAPSULE PO (22:25)
[2023-03-23] MEDS: 0.9 % Sodium Chloride Flush 3 ML SYRINGE IVFLUSH (22:27)
[2023-03-24] MEDS: dilTIAZem HCL 125 MG in 0.9 % Sodium Chloride 100 ML 10 MG IVCONT (02:45)
[2023-03-24 03:45] VITALS: BP 126/73; PULSE 68; RESP 18; TEMP 36.6; O2SAT 94
--- NOTE | 2023-03-24 07:00 | CA_ITS ---
Transthoracic Echocardiogram Patient (Last, First, Middle): Deondre Stein A Gender: Male Date of : 1945 Age: 77 Procedure Date: 03/24/2023 Procedure Type: Transthoracic Echocardiogram Location: [facility] Height: 167.64 cm Weight: 85.28 kg BSA: 1.95 m2 Heart Rate: bpm BP: 127 / 73 mmHg Octave Board Racker: SB Referring MD: Kiarra MONTGOMERY Director Energy: Anjel Gonzalez MD Symptoms: afib rvr Study Quality: Adequate ECG Rhythm: Atrial Fibrillation Conclusions: - 1. Moderately reduced LV systolic function with LVEF of 35-40% 2. Reduced RV systolic function 3. Biatrial enlargement, right greater than left 4. No significant abnormality of cardiac valvular Dopplers 5. Elevated right atrial pressures next 6. No gross pericardial effusion Findings Procedure Information Contrast agent, definity, is being given per protocol without apparent complications. Left Ventricle Mildly increased left ventricular cavity size. There is normal left ventricular wall thickness. The left ventricular systolic function is moderately decreased. The visually estimated ejection fraction is between 35 40%. Diastolic function is indeterminate on the basis of available data. Right Ventricle Mildly increased right ventricular cavity size. There is mildly decreased right ventricular systolic function. Atria The left atrium is mildly dilated. There is no evidence of interatrial shunt. The right atrium is moderately dilated. Aortic Valve The aortic valve was not well visualized. There is mild calcification of the aortic valve. There is no aortic valve stenosis. There is no aortic valve regurgitation. Mitral Valve There is mild anterior and posterior mitral leaflet thickening. There is mild mitral valve regurgitation. There is no mitral valve stenosis. Pulmonic Valve The pulmonic valve was not well visualized. Tricuspid Valve Significantly elevated right atrial pressure. Great Vessels All visible segments of the aorta are normal in size. The pulmonary artery was not well visualized. Venous The inferior vena cava is moderately dilated and collapses less than 50% with inspiration. Pericardium/Pleural There is no evidence of pericardial effusion. Measurements 2D Linear Measurements IVSd: 0.88 0.6-0.9/0.6-1.0 cm LVIDd: 5.53 3.9-5.3/4.2-5.9 cm LVIDd Index: 2.84 2.4-3.2/2.2-3.1 cm/m2 LVIDs: 4.75 2.0-3.6 cm LVPWd: 1.11 0.7-1.1 cm LA Diam: 4.40 2.7-3.8/3.0-4.0 cm LAIDs Index: 2.26 1.5-2.3 cm/m2 LV Mass: 266.39 67-162/88-224 g LV Mass Index: 136.61 43-95/49-115 g/m2 LVOT Diam: 2.40 3.0+(-)1.3 cm 2D Systolic Function EF 4C: 46.20 >55% EF 2C: 28.70 >55% EF BiP: 36.90 >55% Mitral Valve MV Pk E: 0.88 Aortic Valve AoV Pk Clinton: 0.92 AoV Pk Grad: 3.00 JAMEL: 3.49 LVOT LVOT Pk Clinton: 0.71 LVOT Mn Clinton: 0.46 LVOT VTI: 0.13 LVOT Pk Grad: 2.00 LVOT Mn Grad: 1.00 LVOT Diam: 2.40 LVOT Area: 4.52 Diastolic Function MV Pk E: 0.88 Right Ventricle TAPSE (mm): 13.70 TVS' Clinton: 6.96 Tricuspid Valve TR Pk Clinton: 2.66 TR Pk Grad: 28.00 RA Press: 15.00 RVSP: 43.00 Great Vessels Aorta Sinus of Valsalva: 3.80 2.0-3.5 cm Ao Asc: 3.40 2.1-3.4 cm Pulmonary Valve PV Pk Clinton: 0.55 Peak PV Grad: 1.00 Updated in Other Vendor System with Status of Final Anjel Gonzalez MD electronically signed on 03/24/2023 12:17:29 PM with status of Final
[2023-03-24 07:11] LABS: MANUAL DIFF FLAG NO
[2023-03-24 07:23] LABS: Basophils Absolute Auto 0.1 X10*3/uL (0.0-0.2); Basophils Percent Auto 0.6 % (0-2); Eosinophils Absolute Auto 0.2 X10*3/uL (0.0-0.4); Eosinophils Percent Auto 1.9 % (0-4); Hematocrit 39.4 % (42.0-52.0); Hemoglobin 12.2 g/dl (14.0-18.0); Imm Gran Abs Auto 0.03 X10*3/uL (0.00-0.03); Imm Gran Pct Auto 0.4 % (0.0-0.4); Lymphocytes Absolute Auto 0.7 X10*3/uL (1.2-4.9); Lymphocytes Percent Auto 8.4 % (20-40); Mean Corpuscular Hemoglobin 27.9 pg (27.0-33.0); Mean Platelet Volume 11.2 fL (9.4-12.4); Monocytes Absolute Auto 0.7 X10*3/uL (0.1-1.2); Monocytes Percent Auto 9.5 % (2-11); Neutrophils Absolute Auto 6.1 x10*3/uL (2.0-8.3); Neutrophils Percent Auto 79.2 % (45-73); Platelet Count 210 X10*3/uL (160-400); Red Blood Count 4.38 X10*6/uL (4.60-5.80); Red Cell Distribution Width 15.7 % (11.0-16.0); White Blood Count 7.7 X10*3/uL (4.8-10.8)
[2023-03-24 07:25] VITALS: BP 127/73; PULSE 83; RESP 16; TEMP 36.9; O2SAT 93
[2023-03-24 07:36] LABS: B Type Natriuretic Peptide 807 pg/mL (<100)
[2023-03-24 07:38] LABS: Glucose, Whole Blood 127 mg/dL (60-115)
[2023-03-24 07:44] LABS: Anion Gap 13 (12-20); Blood Urea Nitrogen 20 mg/dL (9-16); Calcium 9.3 mg/dL (8.4-10.2); Carbon Dioxide 25 mmol/L (22-29); Chloride 107 mmol/L (96-108); Creatinine Clr Calc Pharmacy 41.6; Estimated Glomerular Filt Rate 45; Glucose Random 112 mg/dL (60-115); Potassium 4.2 mmol/L (3.3-5.1); Sodium 141 mmol/L (135-145)
[2023-03-24] MEDS: Metoprolol Tartrate 25 MG TABLET PO ×4 (07:51→20:58)
[2023-03-24] MEDS: Fenofibrate 160 MG TABLET PO (07:51)
[2023-03-24] MEDS: Folic Acid 1 MG TABLET 0.5 MG PO (07:51)
[2023-03-24] MEDS: Pregabalin 100 MG CAPSULE PO ×3 (07:51→20:59)
[2023-03-24] MEDS: Aspirin Enteric Coated 81 MG TABLET.DR PO (07:51)
[2023-03-24] MEDS: Atorvastatin Calcium 40 MG TABLET PO (07:52)
[2023-03-24] MEDS: Empagliflozin 10 MG TABLET PO (07:52)
[2023-03-24] MEDS: Apixaban 5 MG TABLET PO ×2 (07:52→20:59)
[2023-03-24] MEDS: amLODIPine Besylate 5 MG TABLET PO (07:52)
[2023-03-24] MEDS: Cyanocobalamin (Vitamin B-12) 500 MCG TABLET 2500 MCG PO (07:52)
[2023-03-24] MEDS: Cholecalciferol (Vitamin D3) 25 MCG TABLET PO (07:52)
--- NOTE | 2023-03-24 09:07 | MHC.CM.PN ---
IMM 03/24/23 EXPLAINED AND DELIVERED TO BEDSIDE HOWEVER PT ABOUT TO HAVE ECCHO, CM TO REVISIT FOR CM ASSESSMENT.
--- NOTE | 2023-03-24 09:57 | MHC.CM.PN ---
CM MET W/PT WHO REPORTS HE LIVES W/HIS [place], IS FULLY INDEP W/ALL CARE, DENIES USE OF DME/HOME SERVICES HOWEVER DOES REPORT HE IS OPEN TO VNA SERVICES W/NO PREFERRED VNA. PT VERIFIES PCP IS [facility], [facility] X[facility] AND IS HCP, CM WILL ATTEMPT TO GET COPY FROM PCP OFFICE.
--- NOTE | 2023-03-24 10:58 | PM.CNCAR ---
History of Present Illness History of Present Illness Date of Service: 03/24/23 Requesting physician: Ryan Rader Consult reason: atrial fibrillation and congestive heart failure Chief complaint: Afib with RVR Narrative: I was consulted to see Deondre in cardiology consultation today for new onset atrial fibrillation rapid ventricular response and findings suggestive of congestive heart failure. Patient 77-year-old male followed by , with chronic history of shortness of breath and exertion which has recently been worsening. He has prior history of CAD with LAD stent as well as RCA stent and his anginal equivalence of shortness of breath. He was planned to undergo cardiac catheterization near future due to progressive symptoms of exertional shortness of which were unexplained. Patient has no clear history of orthopnea or PND but has notice leg swelling which he says has been going on for some time. He was recently diagnosed with chronic obstructive pulmonary disease and restrictive lung defect. He has had worsening symptoms since his COVID infection. He came to the hospital because of progressive symptoms and was noted to be in atrial fibrillation rapid ventricular response and was noted to also have significant elevated BNP. Overall other radiographic findings are not suggestive heart failure. However he was given diuresis and says he has been going to the bathroom and feels better at rest. His heart rate is controlled on IV Cardizem drip. He had an echocardiogram June 2021 which had shown normal LV ejection fraction 55-60%, mild biatrial enlargement at that time. He has no prior documented history of atrial fibrillation as per the chart. Currently on aspirin therapy for CAD as well as carotid disease. He is also longstanding history of hypertension, hyperlipidemia, diabetes. Review of Systems Constitutional: Constitutional: Reports no additional constitutional complaints Eyes: Eyes: Reports no additional eye complaints Cardiovascular: Cardiovascular: Denies chest pain, Reports leg edema, Denies lightheadedness, Denies Loss of Consciousness, Denies palpitations and Reports dyspnea on exertion Respiratory: Respiratory: Reports dyspnea on exertion Gastrointestinal: Gastrointestinal: Reports no additional gastrointestinal complaints Musculoskeletal: Musculoskeletal: Reports no additional musculoskeletal complaints Neurologic: Reports system reviewed and no additional complaints, except as documented Endocrine: Endocrine: Reports no additional endocrine complaints and Denies palpitations [facility] Past Medical History Medical History Cardiomyopathy Cataracts, bilateral Chronic otitis media Peripheral vascular disease Type 2 diabetes mellitus with hyperglycemia Erectile dysfunction Post herpetic neuralgia COPD (chronic obstructive pulmonary disease) Obstructive sleep apnea Rotator cuff tear, left Carotid stenosis Tubular adenoma of colon Hypertension Hypercholesterolemia PVCs (premature ventricular contractions) NICM (nonischemic cardiomyopathy) CAD (coronary artery disease) Family History Family History Father H/O ETOH abuse Hypertension Mother Hypertension Brother Diabetes Brother No problems noted. Sister No problems noted. Sister No problems noted. Surgical History Surgical History History of cardiac radiofrequency ablation History of colonoscopy History of cataract surgery History of repair of rotator cuff History of cardiac catheterization History of tonsillectomy History of carotid endarterectomy Social History Social History Housing: House Do you presently have visiting nurse or other home services: No Alcohol intake: current Alcohol intake frequency: a few times a week Alcohol type: beer Patient Tobacco Use Status: Never used Tobacco e-Cigarette/Vaping Use: Never Used Second Hand Smoke Exposure: No Use of substances other than those prescribed or required for medical reasons: No Currently Displaying Signs/Symptoms of Drug Intoxication Withdrawal: No Have you been hit, kicked, punched, or otherwise hurt by someone within the past year? If so, by whom?: No Do you feel safe in your current relationship?: Yes Is there a partner from a previous relationship who is making you feel unsafe now?: No Are you made to feel afraid or neglected: No Advance Directives: Yes Advance Directives on File: Yes Advance Directives Date on File: 11/17/21 Nutrition Risks: No Nutritional Risk service: No Current occupational status: employed Cognitive needs: No Hearing needs: Yes Vision needs: Yes Meds Allergies Allergy/AdvReac Type Severity Reaction Status Date / Time lisinopril Allergy Unknown Unknown Verified 02/18/23 08:48 Penicillins [PENICILLINS] Allergy Unknown UNKNOWN Verified 02/18/23 08:48 REACTION-CHILDHOOD ALLERGY Active Medications: Current Medications Acetaminophen (Acetaminophen 325 Mg Tablet) 650 mg PO Q6H PRN PRN Reason: Pain, Mild (Pain Scale 1-3) Amlodipine Besylate (Amlodipine Besylate 5 Mg Tablet) 5 mg PO DAILY [facility] FERNANDA; Protocol Last Admin: 03/24/23 07:52 Dose: 5 mg Apixaban (Apixaban 5 Mg Tablet) 5 mg PO BID [facility] Last Admin: 03/24/23 07:52 Dose: 5 mg Aspirin (Aspirin Enteric Coated 81 Mg Tablet.Dr) 81 mg PO DAILY [facility] Last Admin: 03/24/23 07:51 Dose: 81 mg Atorvastatin Calcium (Atorvastatin Calcium 40 Mg Tablet) 40 mg PO DAILY [facility] Last Admin: 03/24/23 07:52 Dose: 40 mg Clotrimazole (Clotrimazole 1 % Cream 15 Gm Tube) 1 appl TOPICAL BID [facility] Last Admin: 03/24/23 09:13 Dose: Not Given Cyanocobalamin (Cyanocobalamin (Vitamin B-12) 500 Mcg Tablet) 2,500 mcg PO DAILY [facility] Last Admin: 03/24/23 07:52 Dose: 2,500 mcg Dextrose (Dextrose 50 % 25 Gm/50 Ml Syringe) 25 gm IVPUSH Q15M PRN; Protocol PRN Reason: per Hypoglycemia Standing Ord. Docusate Sodium (Docusate Sodium 100 Mg Capsule) 100 mg PO DAILY PRN PRN Reason: Constipation Empagliflozin (Empagliflozin 10 Mg Tablet) 10 mg PO DAILY [facility] Last Admin: 03/24/23 07:52 Dose: 10 mg Fenofibrate (Fenofibrate 160 Mg Tablet) 160 mg PO DAILY [facility] Last Admin: 03/24/23 07:51 Dose: 160 mg Folic Acid (Folic Acid 1 Mg Tablet) 0.5 mg PO DAILY [facility] Last Admin: 03/24/23 07:51 Dose: 0.5 mg Furosemide (Furosemide 20 Mg/2 Ml Vial) 20 mg IVPUSH BID@0900,1800 [facility]; Protocol Glucose (Glucose Gel 15 Gm Gel..Gram.) 15 gm PO Q15M PRN; Protocol PRN Reason: per Hypoglycemia Standing Ord. Diltiazem HCl 125 mg/ Sodium (Chloride) 125 mls @ 0 mls/hr IVCONT .Q0M [facility]; Protocol Last Titration: 03/24/23 07:50 Dose: 5 mg/hr, 5 mls/hr Insulin Human Lispro (Insulin Lispro 100 Unit/Ml 3 Ml Vial) 0 unit SUBCUT QIDACHS [facility]; Protocol Last Admin: 03/24/23 07:42 Dose: Not Given Metoprolol Tartrate (Metoprolol Tartrate 25 Mg Tablet) 25 mg PO QID [facility]; Protocol Ondansetron HCl (Ondansetron Hcl 4 Mg/2 Ml Vial) 4 mg IVPUSH Q8H PRN PRN Reason: Nausea and Vomiting Pregabalin (Pregabalin 100 Mg Capsule) 100 mg PO TID [facility] Last Admin: 03/24/23 07:51 Dose: 100 mg Sodium Chloride (0.9 % Sodium Chloride Flush 3 Ml Syringe) 3 ml IVFLUSH QSHIFT [facility] Last Admin: 03/24/23 07:55 Dose: Not Given Vitamin D (Cholecalciferol (Vitamin D3) 25 Mcg Tablet) 25 mcg PO DAILY [facility] Last Admin: 03/24/23 07:52 Dose: 25 mcg Home Medications Medication Instructions Recorded Confirmed Last Taken Type aspirin 81 mg tablet,delayed 81 mg PO DAILY 03/12/20 03/23/23 Unknown History release (Adult Low Dose Aspirin) folic acid 400 mcg tablet 0.4 mg PO DAILY 03/12/20 03/23/23 Unknown History cholecalciferol (vitamin D3) 25 25 mcg PO DAILY 08/19/21 03/23/23 Unknown History mcg (1,000 unit) capsule cyanocobalamin (vitamin B-12) 2,500 mcg PO DAILY 08/19/21 03/23/23 Unknown History 2,500 mcg tablet pregabalin 100 mg capsule 100 mg PO TID 09/21/21 03/23/23 Unknown History ciclopirox 0.77 % topical cream 1 appl topical BID 03/23/23 03/23/23 Unknown History Physical Exam Vital Signs: Vital Signs: Last Vital Signs Temp 98.5 F 03/24/23 07:25 Pulse 83 03/24/23 07:25 Resp 16 03/24/23 07:25 BP 127/73 03/24/23 07:25 Pulse Ox 93 03/24/23 07:25 O2 Del Method Room Air 03/24/23 07:25 BMI result Body Mass Index 30.5 Const: General: cooperative, comfortable, alert and awake Nutritional Appearance: overweight Orientation/consciousness: patient oriented x3 HEENT: Head: Yes normocephalic and Yes atraumatic Neck: Neck: Yes trachea midline, Yes supple and Yes JVD Resp: Effort & Inspection: normal respiratory effort Auscultation: clear to auscultation bilaterally Cardio: Jugular venous distension: JVD Rate: regular rate Rhythm: abnormal rhythm irregularly irregular Heart sounds: S1 normal heart sound present, S2 normal heart sound present, no click, no gallops, no murmurs and no rubs GI: Auscultation: normal bowel sounds Skin: General skin exam: no rashes or lesions noted Neuro: General: patient oriented x3 and no focal motor deficits Extrem: General: No clubbing, No cyanosis and Yes edema Psych: Appearance: grossly normal Objective Labs and Meds 03/24/23 06:59 03/24/23 06:59 Lab results: Laboratory Results - last 24 hr 03/23/23 03/23/23 03/23/23 13:43 14:44 18:16 WBC 8.0 RBC 4.41 L Hgb 12.5 L Hct 40.0 L MCV 90.7 MCH 28.3 MCHC 31.3 RDW 15.6 Plt Count 214 MPV 11.4 Immature Gran % (Auto) 0.5 H Neut % (Auto) 73.2 H Lymph % (Auto) 11.3 L Kimble % (Auto) 13.2 H Eos % (Auto) 1.2 Baso % (Auto) 0.6 Lymph # (Auto) 0.9 L Kimble # (Auto) 1.1 Eos # (Auto) 0.1 Baso # (Auto) 0.1 Abs Immat Gran (auto) 0.04 H Absolute Neuts (auto) 5.9 Absolute Nucleated RBC 0.000 Nucleated RBC % (auto) 0.0 PT 15.2 H INR 1.3 H APTT 31.4 Sodium 141 Potassium 4.1 Chloride 105 Carbon Dioxide 24 Anion Gap 16 BUN 21 H Creatinine 1.74 H Estim Creat Clear Calc 35.9 Estimated GFR 38 POC Glucose Random Glucose 147 H Calcium 9.2 Magnesium 2.1 Total Bilirubin 1.1 H AST 97 H ALT 45 H Alkaline Phosphatase 49 Troponin I High Sens 51.2 H 58.7 H B-Natriuretic Peptide 1402 H Total Protein 6.9 Albumin 4.1 TSH 0.76 Influenza Type A (PCR) NEGATIVE Influenza Type B (PCR) NEGATIVE RSV RNA Qual (PCR) NEGATIVE SARS-CoV-2 RNA (RT-PCR) NEGATIVE 03/23/23 03/24/23 03/24/23 21:07 06:59 07:33 WBC 7.7 RBC 4.38 L Hgb 12.2 L Hct 39.4 L MCV 90.0 MCH 27.9 MCHC 31.0 RDW 15.7 Plt Count 210 MPV 11.2 Immature Gran % (Auto) 0.4 Neut % (Auto) 79.2 H Lymph % (Auto) 8.4 L Kimble % (Auto) 9.5 Eos % (Auto) 1.9 Baso % (Auto) 0.6 Lymph # (Auto) 0.7 L Kimble # (Auto) 0.7 Eos # (Auto) 0.2 Baso # (Auto) 0.1 Abs Immat Gran (auto) 0.03 Absolute Neuts (auto) 6.1 Absolute Nucleated RBC 0.000 Nucleated RBC % (auto) 0.0 PT INR APTT Sodium 141 Potassium 4.2 Chloride 107 Carbon Dioxide 25 Anion Gap 13 BUN 20 H Creatinine 1.50 H Estim Creat Clear Calc 41.6 Estimated GFR 45 POC Glucose 161 H 127 H Random Glucose 112 Calcium 9.3 Magnesium Total Bilirubin AST ALT Alkaline Phosphatase Troponin I High Sens B-Natriuretic Peptide 807 H Total Protein Albumin TSH Influenza Type A (PCR) Influenza Type B (PCR) RSV RNA Qual (PCR) SARS-CoV-2 RNA (RT-PCR) Imaging Radiologist's impression: Impressions Venous Duplex 03/23/23 14:15 IMPRESSION: No DVT demonstrated in either lower extremity. Chest X-Ray 03/23/23 15:05 IMPRESSION: Cardiac silhouette is mildly enlarged. However, no evidence of pulmonary edema. A subtle opacity in the posteroinferior right lung base is likely from mild atelectasis rather than infiltrate. Clinical correlation required. Assessment and Plan (1) Acute heart failure: Status: Acute Patient presents with progressive symptoms of heart failure with progressive shortness of breath some leg edema and with significantly elevated BNP most likely cause by new onset atrial fibrillation. He has had progressive symptoms heart failure which may be secondary to diastolic dysfunction. At this point time I think patient is appearing mildly fluid overload today and should continue with IV diuresis. Strict intake and output chart needs to be pursued. Continue to trend BMP and BNP and replace electrolytes as needed. I think patient will benefit from rhythm control, see below. Continue supportive care. Management was discussed in details. (2) Atrial fibrillation with RVR: Status: Acute New onset atrial fibrillation rapid ventricular response. Most likely cause being longstanding hypertension and/or diastolic dysfunction with multiple risk factors for atrial fibrillation. Clinically rate control but still appears to be symptomatic. I think he will benefit rhythm control approach with establishment of AV synchrony. I we discussed about unknown duration of atrial fibrillation therefore would proceed with JOSE JUAN guided cardioversion will performed tomorrow. We discussed the risks, benefits, alternatives for both procedure. He understands and agrees. Please keep him NPO past midnight. Most likely will require antiarrhythmic drug support for rhythm control approach. Obtain echocardiogram to assess for LV systolic function as well as biatrial chamber size. Continue aggressive treatment of blood pressure. Agree with oral anticoagulation with Eliquis at this point time. Will continue follow with. Rhythm 45 minutes was spent in managing his complex care Time Spent With Patient Time: Total time managing care of this patient today ____ minutes. Procedures Date of Service Date of Service: 03/24/23
--- NOTE | 2023-03-24 11:20 | HO.PM.IMPN ---
Subjective Subjective Date of Service: 03/24/23 Interval History: sob Physical Exam Vital Signs: Vital Signs: Last Vital Signs Temp 98.5 F 03/24/23 07:25 Pulse 83 03/24/23 07:25 Resp 16 03/24/23 07:25 BP 127/73 03/24/23 07:25 Pulse Ox 93 03/24/23 07:25 O2 Del Method Room Air 03/24/23 07:25 BMI result Body Mass Index 30.5 General: AO X 3, no acute distress Resp: distant bilateral, no accessory muscles used CVS: S1,S2,irregular GI: soft, non tender, non distended Neuro: motor grossly intact, alert Psych: appropriate affect, appropriate insight Objective Data Active Medications Acetaminophen (Acetaminophen 325 Mg Tablet) 650 mg PO Q6H PRN PRN Reason: Pain, Mild (Pain Scale 1-3) Amlodipine Besylate (Amlodipine Besylate 5 Mg Tablet) 5 mg PO DAILY [facility]; Protocol Last Admin: 03/24/23 07:52 Dose: 5 mg Documented By: GENE Apixaban (Apixaban 5 Mg Tablet) 5 mg PO BID [facility] Last Admin: 03/24/23 07:52 Dose: 5 mg Documented By: GENE Aspirin (Aspirin Enteric Coated 81 Mg Tablet.Dr) 81 mg PO DAILY [facility] Last Admin: 03/24/23 07:51 Dose: 81 mg Documented By: GENE Atorvastatin Calcium (Atorvastatin Calcium 40 Mg Tablet) 40 mg PO DAILY [facility] Last Admin: 03/24/23 07:52 Dose: 40 mg Documented By: GENE Clotrimazole (Clotrimazole 1 % Cream 15 Gm Tube) 1 appl TOPICAL BID [facility] Last Admin: 03/24/23 09:13 Dose: Not Given Documented By: GENE Non-Admin Reason: Med Not Available Cyanocobalamin (Cyanocobalamin (Vitamin B-12) 500 Mcg Tablet) 2,500 mcg PO DAILY [facility] Last Admin: 03/24/23 07:52 Dose: 2,500 mcg Documented By: GENE Dextrose (Dextrose 50 % 25 Gm/50 Ml Syringe) 25 gm IVPUSH Q15M PRN; Protocol PRN Reason: per Hypoglycemia Standing Ord. Docusate Sodium (Docusate Sodium 100 Mg Capsule) 100 mg PO DAILY PRN PRN Reason: Constipation Empagliflozin (Empagliflozin 10 Mg Tablet) 10 mg PO DAILY [facility] Last Admin: 03/24/23 07:52 Dose: 10 mg Documented By: GENE Fenofibrate (Fenofibrate 160 Mg Tablet) 160 mg PO DAILY [facility] Last Admin: 03/24/23 07:51 Dose: 160 mg Documented By: GENE Folic Acid (Folic Acid 1 Mg Tablet) 0.5 mg PO DAILY [facility] Last Admin: 03/24/23 07:51 Dose: 0.5 mg Documented By: GENE Furosemide (Furosemide 20 Mg/2 Ml Vial) 20 mg IVPUSH BID@0900,1800 [facility]; Protocol Glucose (Glucose Gel 15 Gm Gel..Gram.) 15 gm PO Q15M PRN; Protocol PRN Reason: per Hypoglycemia Standing Ord. Diltiazem HCl 125 mg/ Sodium (Chloride) 125 mls @ 0 mls/hr IVCONT .Q0M [facility]; Protocol Last Titration: 03/24/23 07:50 Dose: 5 mg/hr, 5 mls/hr Documented By: GENE Insulin Human Lispro (Insulin Lispro 100 Unit/Ml 3 Ml Vial) 0 unit SUBCUT QIDACHS [facility]; Protocol Last Admin: 03/24/23 07:42 Dose: Not Given Documented By: GENE Non-Admin Reason: No Insulin Coverage Metoprolol Tartrate (Metoprolol Tartrate 25 Mg Tablet) 25 mg PO QID [facility]; Protocol Ondansetron HCl (Ondansetron Hcl 4 Mg/2 Ml Vial) 4 mg IVPUSH Q8H PRN PRN Reason: Nausea and Vomiting Pregabalin (Pregabalin 100 Mg Capsule) 100 mg PO TID [facility] Last Admin: 03/24/23 07:51 Dose: 100 mg Documented By: GENE Sodium Chloride (0.9 % Sodium Chloride Flush 3 Ml Syringe) 3 ml IVFLUSH QSHIFT [facility] Last Admin: 03/24/23 07:55 Dose: Not Given Documented By: GENE Non-Admin Reason: IV Running Vitamin D (Cholecalciferol (Vitamin D3) 25 Mcg Tablet) 25 mcg PO DAILY [facility] Last Admin: 03/24/23 07:52 Dose: 25 mcg Documented By: GENE Labs 03/24/23 06:59 03/24/23 06:59 Labs: Laboratory Results - last 24 hr 03/23/23 03/23/23 03/23/23 13:43 14:44 21:07 MCV 90.7 MCH 28.3 MCHC 31.3 RDW 15.6 Plt Count 214 MPV 11.4 Immature Gran % (Auto) 0.5 H Neut % (Auto) 73.2 H Lymph % (Auto) 11.3 L Butts % (Auto) 13.2 H Eos % (Auto) 1.2 Baso % (Auto) 0.6 Lymph # (Auto) 0.9 L Butts # (Auto) 1.1 Eos # (Auto) 0.1 Baso # (Auto) 0.1 Abs Immat Gran (auto) 0.04 H Absolute Neuts (auto) 5.9 Absolute Nucleated RBC 0.000 Nucleated RBC % (auto) 0.0 PT 15.2 H INR 1.3 H APTT 31.4 Anion Gap 16 Estim Creat Clear Calc 35.9 Estimated GFR 38 POC Glucose 161 H Random Glucose 147 H Calcium 9.2 Magnesium 2.1 Total Bilirubin 1.1 H AST 97 H ALT 45 H Alkaline Phosphatase 49 B-Natriuretic Peptide 1402 H Total Protein 6.9 Albumin 4.1 TSH 0.76 Influenza Type A (PCR) NEGATIVE Influenza Type B (PCR) NEGATIVE RSV RNA Qual (PCR) NEGATIVE SARS-CoV-2 RNA (RT-PCR) NEGATIVE 03/24/23 03/24/23 06:59 07:33 MCV 90.0 MCH 27.9 MCHC 31.0 RDW 15.7 Plt Count 210 MPV 11.2 Immature Gran % (Auto) 0.4 Neut % (Auto) 79.2 H Lymph % (Auto) 8.4 L Butts % (Auto) 9.5 Eos % (Auto) 1.9 Baso % (Auto) 0.6 Lymph # (Auto) 0.7 L Butts # (Auto) 0.7 Eos # (Auto) 0.2 Baso # (Auto) 0.1 Abs Immat Gran (auto) 0.03 Absolute Neuts (auto) 6.1 Absolute Nucleated RBC 0.000 Nucleated RBC % (auto) 0.0 PT INR APTT Anion Gap 13 Estim Creat Clear Calc 41.6 Estimated GFR 45 POC Glucose 127 H Random Glucose 112 Calcium 9.3 Magnesium Total Bilirubin AST ALT Alkaline Phosphatase B-Natriuretic Peptide 807 H Total Protein Albumin TSH Influenza Type A (PCR) Influenza Type B (PCR) RSV RNA Qual (PCR) SARS-CoV-2 RNA (RT-PCR) Assessment and Plan (1) Acute heart failure: Status: Acute Plan 77M PMH CAD, non ischemic cardiomyopahty, hld, htn, copd, dm, jitendra, pvd, ckd 3, presented with new onset afib with rvr and sob New onset atrial fibrillation with rapid ventricular response Metoprolol 25 mg q.6, continue diltiazem, apixaban Follow-up echo Plan for beverly/cardioversion Acute on chronic systolic CHF IV Lasix CKD 3 Stable Diabetes Insulin Coronary disease Aspirin, apixaban, statin Hypertension Metoprolol, Amlodipine COPD Stable JITENDRA CPAP DVT prophylaxis with Eliquis Full code Reason for continued hospitalization: IV diuretics, plan for BEVERLY cardioversion Time Spent With Patient Time: Total time managing care of this patient today ____ minutes. Quality Stroke Does the patient have a stroke diagnosis?: No VTE Prior VTE?: No VTE Risk Level:: Medical - moderate - high VTE Device Contraindication: Treatment Not Indicated VTE Drug Contraindication: N/A - Med Ordered
[2023-03-24 11:22] VITALS: BP 100/70; PULSE 97; RESP 16; TEMP 36; O2SAT 92
[2023-03-24 11:29] LABS: Glucose, Whole Blood 157 mg/dL (60-115)
[2023-03-24] MEDS: Insulin Lispro 100 UNIT/ML 3 ML VIAL SUBCUT ×3 (11:50→20:59)
[2023-03-24 13:26] VITALS: BP 112/70
[2023-03-24 15:43] VITALS: BP 129/70; PULSE 98; RESP 20; TEMP 36.7; O2SAT 94
[2023-03-24 16:41] LABS: Glucose, Whole Blood 170 mg/dL (60-115)
[2023-03-24] MEDS: Furosemide 20 MG/2 ML VIAL IVPUSH (16:59)
[2023-03-24] MEDS: dilTIAZem HCL 125 MG in 0.9 % Sodium Chloride 100 ML IVCONT (16:59)
[2023-03-24] MEDS: 0.9 % Sodium Chloride Flush 3 ML SYRINGE IVFLUSH (17:00)
[2023-03-24 19:59] VITALS: BP 119/80; PULSE 112; RESP 16; TEMP 36.4; O2SAT 94
[2023-03-24 20:31] LABS: Glucose, Whole Blood 167 mg/dL (60-115)
[2023-03-25] VITALS (12 sets, daily range): BP systolic 95–132; BP diastolic 50–101; PULSE 60–130; RESP 14–20; TEMP 36–37.1; O2SAT 90–98
[2023-03-25] MEDS: 0.9 % Sodium Chloride Flush 3 ML SYRINGE IVFLUSH ×4 (00:02→22:18)
[2023-03-25 07:29] LABS: Hematocrit 40.5 % (42.0-52.0); Hemoglobin 12.7 g/dl (14.0-18.0); Mean Corpuscular HGB Conc 31.4 g/dl (31.0-36.0); Mean Corpuscular Hemoglobin 28.5 pg (27.0-33.0); Mean Platelet Volume 11.3 fL (9.4-12.4); Platelet Count 214 X10*3/uL (160-400); Red Blood Count 4.45 X10*6/uL (4.60-5.80); Red Cell Distribution Width 15.8 % (11.0-16.0); White Blood Count 13.5 X10*3/uL (4.8-10.8)
[2023-03-25] MEDS: Cyanocobalamin (Vitamin B-12) 500 MCG TABLET 2500 MCG PO (07:49)
[2023-03-25] MEDS: amLODIPine Besylate 5 MG TABLET PO (07:49)
[2023-03-25] MEDS: Metoprolol Tartrate 25 MG TABLET PO ×4 (07:50→22:18)
[2023-03-25] MEDS: Cholecalciferol (Vitamin D3) 25 MCG TABLET PO (07:50)
[2023-03-25] MEDS: Pregabalin 100 MG CAPSULE PO ×3 (07:50→22:18)
[2023-03-25] MEDS: Folic Acid 1 MG TABLET 0.5 MG PO (07:50)
[2023-03-25] MEDS: Aspirin Enteric Coated 81 MG TABLET.DR PO (07:50)
[2023-03-25] MEDS: Apixaban 5 MG TABLET PO ×2 (07:50→22:18)
[2023-03-25] MEDS: Empagliflozin 10 MG TABLET PO (07:50)
[2023-03-25] MEDS: Fenofibrate 160 MG TABLET PO (07:50)
[2023-03-25] MEDS: Atorvastatin Calcium 40 MG TABLET PO (07:51)
[2023-03-25] MEDS: Furosemide 20 MG/2 ML VIAL IVPUSH ×2 (07:51→16:56)
[2023-03-25 07:55] LABS: Glucose, Whole Blood 106 mg/dL (60-115)
[2023-03-25 07:59] LABS: Anion Gap 17 (12-20); Blood Urea Nitrogen 23 mg/dL (9-16); Calcium 9.4 mg/dL (8.4-10.2); Carbon Dioxide 24 mmol/L (22-29); Chloride 105 mmol/L (96-108); Creatinine Clr Calc Pharmacy 42.5; Estimated Glomerular Filt Rate 46; Glucose Fasting 101 mg/dL (60-99); Magnesium 1.9 mg/dL (1.6-2.6); Potassium 4.1 mmol/L (3.3-5.1); Sodium 142 mmol/L (135-145)
[2023-03-25] MEDS: Clotrimazole 1 % Cream 15 GM TUBE 1 APPL TOPICAL (07:59)
[2023-03-25] MEDS: dilTIAZem HCL 125 MG in 0.9 % Sodium Chloride 100 ML 15 MG IVCONT (10:12)
--- NOTE | 2023-03-25 10:59 | MHC.CM.PN ---
EMR REVIEWED, PER HOSPITALIST PLAN FOR CARDIOVERSION TODAY, ANTIC PT WILL BE MONITORED X24HRS AND DC OVER W/E, CM WILL CONT TO FOLLOW D/C NEEDS.
[2023-03-25 11:27] LABS: Glucose, Whole Blood 94 mg/dL (60-115)
--- NOTE | 2023-03-25 11:27 | CA_ITS ---
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 1. LV systolic function appears moderately reduced LVEF of 35 40% 2. Biatrial enlargement, right greater than left 3. No intracardiac thrombi, masses or vegetations 4. Small PFO detected only with color with detected only during reversal phase next 5. No significant abnormality of cardiac valvular Dopplers 6. Mild atherosclerotic changes noted in the aorta 7. No significant abnormality of the pericardium Findings Procedure Information Consent was obtained prior to the procedure. Pre JOSE JUAN oral cavity was checked and revealed no overcrowding. The adult 3D probe was passed with no difficulty. Left Ventricle The left ventricular systolic function is moderately decreased. The visually estimated ejection fraction is between 35-40%. There is moderate global hypokinesis. Diastolic function is indeterminate on the basis of available data. There is no evidence of a mass in the left ventricle. Right Ventricle Normal right ventricular cavity size. Atria The left atrium is mildly dilated. There is a mobile atrial septum noted. Patent foramen ovale detected using by color Doppler. There is shunt reversal with the release phase of the Valsalva maneuver. the left atrium is free of any significant masses, clots for significant smoke formation. The left atrial appendage was identified multiple views and there is no significant clot seen with the left atrial appendage. The left atrial appendage ejection lasted is reduced. The left upper, right upper and right lower pulmonary vein drain normally into the left atrium. The right atrium is moderately dilated. The right atrial free of any significant thrombi or masses. The IVC in SVC drain normally into the right atrium. Aortic Valve Normal aortic valve structure and function. There is no aortic valve stenosis. There is no evidence of a mass on the aortic valve. There is no aortic valve regurgitation. The inter valvular fibrosa RV is unremarkable and thin. Mitral Valve Normal mitral valve structure and function. There is trace mitral valve regurgitation. There is no mitral valve stenosis. There is no mass noted on the mitral valve. Pulmonic Valve The pulmonic valve is normal. There is no mass noted on the pulmonic valve. There is trace pulmonic valve regurgitation. Tricuspid Valve Normal tricuspid valve structure. There is mild tricuspid valve regurgitation. There is no evidence of a mass on the tricuspid valve. The right ventricular systolic pressure is not calculated. Great Vessels All visible segments of the aorta are normal in size. Small plaque is seen in the arch and descending thoracic aorta. The visualized portions of the pulmonary artery and branches are normal. Venous The inferior vena cava is normal in size and collapses greater than 50% with inspiration. Pericardium/Pleural There is no evidence of pericardial effusion. Updated by Anjel Gonzalez on 11:19 AM with Status of Final Anjel Gonzalez MD electronically signed on 03/26/2023 11:19:12 AM with status of Final
--- NOTE | 2023-03-25 11:33 | HO.PM.IMPN ---
Subjective Subjective Date of Service: 03/25/23 Interval History: sob Physical Exam Vital Signs: Vital Signs: Last Vital Signs Temp 97.3 F 03/25/23 07:13 Pulse 130 H 03/25/23 07:13 Resp 16 03/25/23 07:13 BP 122/79 03/25/23 07:13 Pulse Ox 90 L 03/25/23 07:13 O2 Del Method Room Air 03/25/23 07:13 BMI result Body Mass Index 30.5 General: AO X 3, no acute distress Resp: distant bilateral, no accessory muscles used CVS: S1,S2,irregular GI: soft, non tender, non distended Neuro: motor grossly intact, alert Psych: appropriate affect, appropriate insight Objective Data Active Medications Acetaminophen (Acetaminophen 325 Mg Tablet) 650 mg PO Q6H PRN PRN Reason: Pain, Mild (Pain Scale 1-3) Amlodipine Besylate (Amlodipine Besylate 5 Mg Tablet) 5 mg PO DAILY [facility]; Protocol Last Admin: 03/25/23 07:49 Dose: 5 mg Documented By: DENYS Apixaban (Apixaban 5 Mg Tablet) 5 mg PO BID [facility] Last Admin: 03/25/23 07:50 Dose: 5 mg Documented By: DENYS Aspirin (Aspirin Enteric Coated 81 Mg Tablet.) 81 mg PO DAILY [facility] Last Admin: 03/25/23 07:50 Dose: 81 mg Documented By: DENYS Atorvastatin Calcium (Atorvastatin Calcium 40 Mg Tablet) 40 mg PO DAILY [facility] Last Admin: 03/25/23 07:51 Dose: 40 mg Documented By: DENYS Clotrimazole (Clotrimazole 1 % Cream 15 Gm Tube) 1 appl TOPICAL BID [facility] Last Admin: 03/25/23 07:59 Dose: 1 appl Documented By: DENYS Cyanocobalamin (Cyanocobalamin (Vitamin B-12) 500 Mcg Tablet) 2,500 mcg PO DAILY [facility] Last Admin: 03/25/23 07:49 Dose: 2,500 mcg Documented By: DENYS Dextrose (Dextrose 50 % 25 Gm/50 Ml Syringe) 25 gm IVPUSH Q15M PRN; Protocol PRN Reason: per Hypoglycemia Standing Ord. Docusate Sodium (Docusate Sodium 100 Mg Capsule) 100 mg PO DAILY PRN PRN Reason: Constipation Empagliflozin (Empagliflozin 10 Mg Tablet) 10 mg PO DAILY [facility] Last Admin: 03/25/23 07:50 Dose: 10 mg Documented By: DENYS Fenofibrate (Fenofibrate 160 Mg Tablet) 160 mg PO DAILY [facility] Last Admin: 03/25/23 07:50 Dose: 160 mg Documented By: DENYS Folic Acid (Folic Acid 1 Mg Tablet) 0.5 mg PO DAILY [facility] Last Admin: 03/25/23 07:50 Dose: 0.5 mg Documented By: DENYS Furosemide (Furosemide 20 Mg/2 Ml Vial) 20 mg IVPUSH BID@0900,1800 [facility]; Protocol Last Admin: 03/25/23 07:51 Dose: 20 mg Documented By: DENYS Glucose (Glucose Gel 15 Gm Gel..Gram.) 15 gm PO Q15M PRN; Protocol PRN Reason: per Hypoglycemia Standing Ord. Diltiazem HCl 125 mg/ Sodium (Chloride) 125 mls @ 0 mls/hr IVCONT .Q0M [facility]; Protocol Last Admin: 03/25/23 10:12 Dose: 15 mg/hr, 15 mls/hr Documented By: DENYS Insulin Human Lispro (Insulin Lispro 100 Unit/Ml 3 Ml Vial) 0 unit SUBCUT QIDACHS [facility]; Protocol Last Admin: 03/25/23 07:51 Dose: Not Given Documented By: DENYS Non-Admin Reason: No Insulin Coverage Metoprolol Tartrate (Metoprolol Tartrate 25 Mg Tablet) 25 mg PO QID [facility]; Protocol Last Admin: 03/25/23 07:50 Dose: 25 mg Documented By: DENYS Ondansetron HCl (Ondansetron Hcl 4 Mg/2 Ml Vial) 4 mg IVPUSH Q8H PRN PRN Reason: Nausea and Vomiting Pregabalin (Pregabalin 100 Mg Capsule) 100 mg PO TID [facility] Last Admin: 03/25/23 07:50 Dose: 100 mg Documented By: DENYS Sodium Chloride (0.9 % Sodium Chloride Flush 3 Ml Syringe) 3 ml IVFLUSH QSHIFT [facility] Last Admin: 03/25/23 07:51 Dose: 3 ml Documented By: DENYS Vitamin D (Cholecalciferol (Vitamin D3) 25 Mcg Tablet) 25 mcg PO DAILY [facility] Last Admin: 03/25/23 07:50 Dose: 25 mcg Documented By: DENYS Labs 03/25/23 07:03 03/25/23 07:03 Labs: Laboratory Results - last 24 hr 03/24/23 03/24/23 03/25/23 16:33 20:03 07:03 MCV 91.0 MCH 28.5 MCHC 31.4 RDW 15.8 Plt Count 214 MPV 11.3 Absolute Nucleated RBC 0.000 Nucleated RBC % (auto) 0.0 Anion Gap 17 Estim Creat Clear Calc 42.5 Estimated GFR 46 POC Glucose 170 H 167 H Fasting Glucose 101 H Calcium 9.4 Magnesium 1.9 03/25/23 03/25/23 07:17 11:18 MCV MCH MCHC RDW Plt Count MPV Absolute Nucleated RBC Nucleated RBC % (auto) Anion Gap Estim Creat Clear Calc Estimated GFR POC Glucose 106 94 Fasting Glucose Calcium Magnesium Assessment and Plan (1) Acute heart failure: Status: Acute Plan 77M PMH CAD, non ischemic cardiomyopahty, hld, htn, copd, dm, jitendra, pvd, ckd 3, presented with new onset afib with rvr and sob New onset atrial fibrillation with rapid ventricular response Metoprolol 25 mg q.6, continue diltiazem, apixaban Plan for beverly/cardioversion today, 03/25 Acute on chronic systolic CHF IV Lasix CKD 3 Stable Diabetes Insulin Coronary disease Aspirin, apixaban, statin Hypertension Metoprolol, Amlodipine COPD Stable JITENDRA CPAP DVT prophylaxis with Eliquis Full code Reason for continued hospitalization: IV diuretics, plan for BEVERLY cardioversion Time Spent With Patient Time: Total time managing care of this patient today ____ minutes. Quality Stroke Does the patient have a stroke diagnosis?: No VTE Prior VTE?: No VTE Risk Level:: Medical - moderate - high VTE Device Contraindication: Treatment Not Indicated VTE Drug Contraindication: N/A - Med Ordered
--- NOTE | 2023-03-25 12:13 | HO.ANESPROP2 ---
HPI - Anesthesia Eval Consult details Narrative: Acute afib, beverly cardioversion, chf PMFSH Active Problems Active Problems: All Active Problems (Updated 03/24/23 @ 11:04 by Anjel Gonzalez MD) Acute heart failure (Acute) Atrial fibrillation with RVR (Acute) Restrictive lung disease (Acute) Medicare annual wellness visit, subsequent (Acute) Bilateral carotid artery disease (Acute) Carotid stenosis (Acute) JITENDRA on CPAP (Acute) Atrial fibrillation (Acute) Dyspnea on exertion (Acute) Post herpetic neuralgia (Acute) Impacted cerumen of right ear (Acute) COVID-19 virus infection (Acute) Osteoarthritis of right shoulder (Acute) Paronychia (Acute) Adult general medical exam (Acute) Hearing impairment (Acute) Peripheral vascular disease (Acute) Type 2 diabetes mellitus with hyperglycemia (Acute) COPD (chronic obstructive pulmonary disease) (Acute) Hypertension (Acute) Hypercholesterolemia (Acute) Bursitis of right shoulder (Acute) PVCs (premature ventricular contractions) (Acute) CAD (coronary artery disease) (Acute) Past Medical History Medical History Cardiomyopathy Cataracts, bilateral Chronic otitis media Peripheral vascular disease Type 2 diabetes mellitus with hyperglycemia Erectile dysfunction Post herpetic neuralgia COPD (chronic obstructive pulmonary disease) Obstructive sleep apnea Rotator cuff tear, left Carotid stenosis Tubular adenoma of colon Hypertension Hypercholesterolemia PVCs (premature ventricular contractions) NICM (nonischemic cardiomyopathy) CAD (coronary artery disease) Family History Family History Father H/O ETOH abuse Hypertension Mother Hypertension Brother Diabetes Brother No problems noted. Sister No problems noted. Sister No problems noted. Family history of problems with anesthesia: No Surgical History Surgical History History of cardiac radiofrequency ablation History of colonoscopy History of cataract surgery History of repair of rotator cuff History of cardiac catheterization History of tonsillectomy History of carotid endarterectomy History of Problems with Anesthesia: No Social History Social History Housing: House Do you presently have visiting nurse or other home services: No Alcohol intake: current Alcohol intake frequency: a few times a week Alcohol type: beer Patient Tobacco Use Status: Never used Tobacco e-Cigarette/Vaping Use: Never Used Second Hand Smoke Exposure: No Use of substances other than those prescribed or required for medical reasons: No Currently Displaying Signs/Symptoms of Drug Intoxication Withdrawal: No Have you been hit, kicked, punched, or otherwise hurt by someone within the past year? If so, by whom?: No Do you feel safe in your current relationship?: Yes Is there a partner from a previous relationship who is making you feel unsafe now?: No Are you made to feel afraid or neglected: No Are you DNR?: No Advance Directives: Yes Advance Directives on File: Yes Advance Directives Date on File: 11/17/21 Nutrition Risks: No Nutritional Risk service: No Current occupational status: employed Cognitive needs: No Hearing needs: Yes Vision needs: Yes Meds Allergies Allergy/AdvReac Type Severity Reaction Status Date / Time lisinopril Allergy Unknown Unknown Verified 02/18/23 08:48 Penicillins [PENICILLINS] Allergy Unknown UNKNOWN Verified 02/18/23 08:48 REACTION-CHILDHOOD ALLERGY Active Medications: Current Medications Acetaminophen (Acetaminophen 325 Mg Tablet) 650 mg PO Q6H PRN PRN Reason: Pain, Mild (Pain Scale 1-3) Amlodipine Besylate (Amlodipine Besylate 5 Mg Tablet) 5 mg PO DAILY [facility]; Protocol Last Admin: 03/25/23 07:49 Dose: 5 mg Apixaban (Apixaban 5 Mg Tablet) 5 mg PO BID [facility] Last Admin: 03/25/23 07:50 Dose: 5 mg Aspirin (Aspirin Enteric Coated 81 Mg Tablet.Dr) 81 mg PO DAILY [facility] Last Admin: 03/25/23 07:50 Dose: 81 mg Atorvastatin Calcium (Atorvastatin Calcium 40 Mg Tablet) 40 mg PO DAILY [facility] Last Admin: 03/25/23 07:51 Dose: 40 mg Clotrimazole (Clotrimazole 1 % Cream 15 Gm Tube) 1 appl TOPICAL BID [facility] Last Admin: 03/25/23 07:59 Dose: 1 appl Cyanocobalamin (Cyanocobalamin (Vitamin B-12) 500 Mcg Tablet) 2,500 mcg PO DAILY [facility] Last Admin: 03/25/23 07:49 Dose: 2,500 mcg Dextrose (Dextrose 50 % 25 Gm/50 Ml Syringe) 25 gm IVPUSH Q15M PRN; Protocol PRN Reason: per Hypoglycemia Standing Ord. Docusate Sodium (Docusate Sodium 100 Mg Capsule) 100 mg PO DAILY PRN PRN Reason: Constipation Empagliflozin (Empagliflozin 10 Mg Tablet) 10 mg PO DAILY [facility] Last Admin: 03/25/23 07:50 Dose: 10 mg Fenofibrate (Fenofibrate 160 Mg Tablet) 160 mg PO DAILY [facility] Last Admin: 03/25/23 07:50 Dose: 160 mg Folic Acid (Folic Acid 1 Mg Tablet) 0.5 mg PO DAILY [facility] Last Admin: 03/25/23 07:50 Dose: 0.5 mg Furosemide (Furosemide 20 Mg/2 Ml Vial) 20 mg IVPUSH BID@0900,1800 [facility]; Protocol Last Admin: 03/25/23 07:51 Dose: 20 mg Glucose (Glucose Gel 15 Gm Gel..Gram.) 15 gm PO Q15M PRN; Protocol PRN Reason: per Hypoglycemia Standing Ord. Diltiazem HCl 125 mg/ Sodium (Chloride) 125 mls @ 0 mls/hr IVCONT .Q0M [facility]; Protocol Last Admin: 03/25/23 10:12 Dose: 15 mg/hr, 15 mls/hr Insulin Human Lispro (Insulin Lispro 100 Unit/Ml 3 Ml Vial) 0 unit SUBCUT QIDACHS [facility]; Protocol Last Admin: 03/25/23 11:37 Dose: Not Given Metoprolol Tartrate (Metoprolol Tartrate 25 Mg Tablet) 25 mg PO QID [facility]; Protocol Last Admin: 03/25/23 07:50 Dose: 25 mg Ondansetron HCl (Ondansetron Hcl 4 Mg/2 Ml Vial) 4 mg IVPUSH Q8H PRN PRN Reason: Nausea and Vomiting Pregabalin (Pregabalin 100 Mg Capsule) 100 mg PO TID [facility] Last Admin: 03/25/23 07:50 Dose: 100 mg Sodium Chloride (0.9 % Sodium Chloride Flush 3 Ml Syringe) 3 ml IVFLUSH QSHIFT [facility] Last Admin: 03/25/23 07:51 Dose: 3 ml Vitamin D (Cholecalciferol (Vitamin D3) 25 Mcg Tablet) 25 mcg PO DAILY [facility] Last Admin: 03/25/23 07:50 Dose: 25 mcg Home Medications Medication Instructions Recorded Confirmed Last Taken Type aspirin 81 mg tablet,delayed 81 mg PO DAILY 03/12/20 03/23/23 Unknown History release (Adult Low Dose Aspirin) folic acid 400 mcg tablet 0.4 mg PO DAILY 03/12/20 03/23/23 Unknown History cholecalciferol (vitamin D3) 25 25 mcg PO DAILY 08/19/21 03/23/23 Unknown History mcg (1,000 unit) capsule cyanocobalamin (vitamin B-12) 2,500 mcg PO DAILY 08/19/21 03/23/23 Unknown History 2,500 mcg tablet pregabalin 100 mg capsule 100 mg PO TID 09/21/21 03/23/23 Unknown History ciclopirox 0.77 % topical cream 1 appl topical BID 03/23/23 03/23/23 Unknown History Exam Exam Date and Time: March 25, 2023 121 Height,Weight and Vital Signs: Height 5 ft 6 in Weight 85.7 kg Last Vital Signs Temp 98.3 F 03/25/23 11:45 Pulse 99 03/25/23 11:45 Resp 18 03/25/23 11:45 BP 121/66 03/25/23 11:45 Pulse Ox 97 03/25/23 11:49 O2 Del Method Nasal Cannula 03/25/23 11:49 O2 Flow Rate 2 03/25/23 11:49 Pertinent Lab Results Pertinent Lab Results: Laboratory Tests 03/23/23 03/23/23 03/23/23 13:43 14:44 18:16 WBC 8.0 RBC 4.41 L Hgb 12.5 L Hct 40.0 L MCV 90.7 MCH 28.3 MCHC 31.3 RDW 15.6 Plt Count 214 MPV 11.4 Immature Gran % (Auto) 0.5 H Neut % (Auto) 73.2 H Lymph % (Auto) 11.3 L [place] % (Auto) 13.2 H Eos % (Auto) 1.2 Baso % (Auto) 0.6 Lymph # (Auto) 0.9 L [place] # (Auto) 1.1 Eos # (Auto) 0.1 Baso # (Auto) 0.1 Abs Immat Gran (auto) 0.04 H Absolute Neuts (auto) 5.9 Absolute Nucleated RBC 0.000 Nucleated RBC % (auto) 0.0 PT 15.2 H INR 1.3 H APTT 31.4 Sodium 141 Potassium 4.1 Chloride 105 Carbon Dioxide 24 Anion Gap 16 BUN 21 H Creatinine 1.74 H Estim Creat Clear Calc 35.9 Estimated GFR 38 POC Glucose Random Glucose 147 H Fasting Glucose Calcium 9.2 Magnesium 2.1 Total Bilirubin 1.1 H AST 97 H ALT 45 H Alkaline Phosphatase 49 Troponin I High Sens 51.2 H 58.7 H B-Natriuretic Peptide 1402 H Total Protein 6.9 Albumin 4.1 TSH 0.76 Influenza Type A (PCR) NEGATIVE Influenza Type B (PCR) NEGATIVE RSV RNA Qual (PCR) NEGATIVE SARS-CoV-2 RNA (RT-PCR) NEGATIVE 03/23/23 03/24/23 03/24/23 21:07 06:59 07:33 WBC 7.7 RBC 4.38 L Hgb 12.2 L Hct 39.4 L MCV 90.0 MCH 27.9 MCHC 31.0 RDW 15.7 Plt Count 210 MPV 11.2 Immature Gran % (Auto) 0.4 Neut % (Auto) 79.2 H Lymph % (Auto) 8.4 L [place] % (Auto) 9.5 Eos % (Auto) 1.9 Baso % (Auto) 0.6 Lymph # (Auto) 0.7 L [place] # (Auto) 0.7 Eos # (Auto) 0.2 Baso # (Auto) 0.1 Abs Immat Gran (auto) 0.03 Absolute Neuts (auto) 6.1 Absolute Nucleated RBC 0.000 Nucleated RBC % (auto) 0.0 PT INR APTT Sodium 141 Potassium 4.2 Chloride 107 Carbon Dioxide 25 Anion Gap 13 BUN 20 H Creatinine 1.50 H Estim Creat Clear Calc 41.6 Estimated GFR 45 POC Glucose 161 H 127 H Random Glucose 112 Fasting Glucose Calcium 9.3 Magnesium Total Bilirubin AST ALT Alkaline Phosphatase Troponin I High Sens B-Natriuretic Peptide 807 H Total Protein Albumin TSH Influenza Type A (PCR) Influenza Type B (PCR) RSV RNA Qual (PCR) SARS-CoV-2 RNA (RT-PCR) 03/24/23 03/24/23 03/24/23 11:20 16:33 20:03 WBC RBC Hgb Hct MCV MCH MCHC RDW Plt Count MPV Immature Gran % (Auto) Neut % (Auto) Lymph % (Auto) [place] % (Auto) Eos % (Auto) Baso % (Auto) Lymph # (Auto) [place] # (Auto) Eos # (Auto) Baso # (Auto) Abs Immat Gran (auto) Absolute Neuts (auto) Absolute Nucleated RBC Nucleated RBC % (auto) PT INR APTT Sodium Potassium Chloride Carbon Dioxide Anion Gap BUN Creatinine Estim Creat Clear Calc Estimated GFR POC Glucose 157 H 170 H 167 H Random Glucose Fasting Glucose Calcium Magnesium Total Bilirubin AST ALT Alkaline Phosphatase Troponin I High Sens B-Natriuretic Peptide Total Protein Albumin TSH Influenza Type A (PCR) Influenza Type B (PCR) RSV RNA Qual (PCR) SARS-CoV-2 RNA (RT-PCR) 03/25/23 03/25/23 03/25/23 07:03 07:17 11:18 WBC 13.5 H RBC 4.45 L Hgb 12.7 L Hct 40.5 L MCV 91.0 MCH 28.5 MCHC 31.4 RDW 15.8 Plt Count 214 MPV 11.3 Immature Gran % (Auto) Neut % (Auto) Lymph % (Auto) [place] % (Auto) Eos % (Auto) Baso % (Auto) Lymph # (Auto) [place] # (Auto) Eos # (Auto) Baso # (Auto) Abs Immat Gran (auto) Absolute Neuts (auto) Absolute Nucleated RBC 0.000 Nucleated RBC % (auto) 0.0 PT INR APTT Sodium 142 Potassium 4.1 Chloride 105 Carbon Dioxide 24 Anion Gap 17 BUN 23 H Creatinine 1.47 H Estim Creat Clear Calc 42.5 Estimated GFR 46 POC Glucose 106 94 Random Glucose Fasting Glucose 101 H Calcium 9.4 Magnesium 1.9 Total Bilirubin AST ALT Alkaline Phosphatase Troponin I High Sens B-Natriuretic Peptide Total Protein Albumin TSH Influenza Type A (PCR) Influenza Type B (PCR) RSV RNA Qual (PCR) SARS-CoV-2 RNA (RT-PCR) Airway Mallampati Class: III TM Dist: <=3cm Neck ROM: Limited Heart: irreg, tachy Lungs: bibasilar scattered rales Assessment and Plan Assessment Anesthesia Assessment: Anesthesia Plan Discussed Final Anesthetic Review Family History of Problems with Anesthesia: No History of Problems with Anesthesia: No NPO: Yes ASA Class: IV Final Preanesthetic Review: No Changes in Pt Med Stat, Meds/Allgs Chart Reviewed, Consent Obtained/Reviewed and Anes Risks/Benef Reviewed Patient Risk: High Procedure Risk: Intermediate Anesthetic Plan Anesthetic Plan: MAC: and Agree w/ Assess. and Plan Disposition: Standard PACU
--- NOTE | 2023-03-25 12:19 | MHC.SHP ---
Pre-Procedural Eval Section A Date of Service: 03/25/23 The patient is an INPATIENT: Yes Changes since office visit: Yes New Medical Problems, Yes Changes in Medication and Yes Patient answered all questions; No Cold of Flu in the past 2 weeks The History & Physical has been completed within 30 days and I have reviewed it.: Yes Section B Chief Complaint: Afib with RVR Allergies: Allergies Allergy/AdvReac Type Severity Reaction Status Date / Time lisinopril Allergy Unknown Unknown Verified 02/18/23 08:48 Penicillins [PENICILLINS] Allergy Unknown UNKNOWN Verified 02/18/23 08:48 REACTION-CHILDHOOD ALLERGY Plan I have reviewed the history and physical and performed a pertinent physical examination on my patient. No changes have occurred unless specified. Time Spent With Patient Time: Total time managing care of this patient today ____ minutes.
--- NOTE | 2023-03-25 13:19 | HO.CARDIVERS ---
Cardioversion Procedure Note Cardioversion Date of Procedure: Today Ordering Provider: myself Performing Provider: myself Indication for Procedure: persistent atrial fibrillation with heart failure Pre-Op Diagnosis: same Post-Op Diagnosis: sinus rhythm with PVCs Performed with Transesophageal Echo: Yes JOSE JUAN findings (if JOSE JUAN Performed): dictated separately History: see my consult note Consent: Verbal and Written consent was obtained from the patient before starting and after confirming anticoagulation use. The patient was made aware of the risk of synchronized cardioversion including benefits and alternatives Procedure: After consent obtained, cardioversion pads were attached in anteroposterior configuration and the patient was sedated by the anesthesia team. Once adequate sedation achieved, patient was delivered 200 joules of biphasic synchronized energy in anteroposterior configuration Complications: none Impression: successful conversion to sinus rhythm Recommendations: 1. Start IV amiodarone drip and eventually switch to p.o. loading 2. Continue IV diuresis for 1 more day 3. Twelve lead EKG 4. Continue full oral anticoagulation
--- NOTE | 2023-03-25 13:23 | PM.PNCARD ---
Subjective Subjective Date of Service: 03/25/23 Principal diagnosis: CHF, atrial fibrillation. Interval history: Patient status post JOSE JUAN guided cardioversion. Having lot of PACs and PVCs. Feeling better from heart failure perspective. Overall negative balance of 1700 cc. LV ejection fraction 35-40%, question tachycardia mediated Review of Systems Constitutional: Reports no additional constitutional complaints Eyes: Reports no additional eye complaints Cardiovascular: Denies chest pain, Denies rapid heart rate, Denies lightheadedness and Reports dyspnea on exertion Respiratory: Reports no additional respiratory complaints and Reports dyspnea on exertion Gastrointestinal: Reports no additional gastrointestinal complaints Musculoskeletal: Reports no additional musculoskeletal complaints Reports system reviewed and no additional complaints, except as documented Endocrine: Reports no additional endocrine complaints Physical Exam Vital Signs: Last Vital Signs Temp 98.3 F 03/25/23 11:45 Pulse 99 03/25/23 11:45 Resp 18 03/25/23 11:45 BP 121/66 03/25/23 11:45 Pulse Ox 97 03/25/23 11:49 O2 Del Method Nasal Cannula 03/25/23 11:49 O2 Flow Rate 2 03/25/23 11:49 BMI result Body Mass Index 30.5 Const General: cooperative, comfortable, no acute distress, alert and awake Nutritional Appearance: overweight Orientation/consciousness: patient oriented x3 Neck Neck: Yes trachea midline, Yes supple and Yes JVD Cardio Rhythm: abnormal rhythm with ectopic beats Heart sounds: S1 normal heart sound present, S2 normal heart sound present, no click, no gallops, no murmurs and no rubs GI Auscultation: normal bowel sounds Skin General skin exam: no rashes or lesions noted Neuro General: patient oriented x3 and no focal motor deficits Extrem General: No clubbing, No cyanosis and Yes edema Objective Labs and Meds 03/25/23 07:03 03/25/23 07:03 Lab results: Laboratory Results - last 24 hr 03/24/23 03/24/23 03/25/23 16:33 20:03 07:03 WBC 13.5 H RBC 4.45 L Hgb 12.7 L Hct 40.5 L MCV 91.0 MCH 28.5 MCHC 31.4 RDW 15.8 Plt Count 214 MPV 11.3 Absolute Nucleated RBC 0.000 Nucleated RBC % (auto) 0.0 Sodium 142 Potassium 4.1 Chloride 105 Carbon Dioxide 24 Anion Gap 17 BUN 23 H Creatinine 1.47 H Estim Creat Clear Calc 42.5 Estimated GFR 46 POC Glucose 170 H 167 H Fasting Glucose 101 H Calcium 9.4 Magnesium 1.9 03/25/23 03/25/23 07:17 11:18 WBC RBC Hgb Hct MCV MCH MCHC RDW Plt Count MPV Absolute Nucleated RBC Nucleated RBC % (auto) Sodium Potassium Chloride Carbon Dioxide Anion Gap BUN Creatinine Estim Creat Clear Calc Estimated GFR POC Glucose 106 94 Fasting Glucose Calcium Magnesium Progress Note: A&P Assessment and plan (1) Acute heart failure: Status: Acute Assessment and Plan: new onset acute heart failure most likely related to new onset atrial fibrillation with rapid ventricular response. Noted LV systolic dysfunction most likely tachycardia mediated cardiomyopathy. Will need to follow-up once maintaining rhythm or time. Status post cardioversion to maintain rhythm. Continue IV diuresis. Strict intake and output chart needs to be pursued. Follow-up BNP tomorrow. Follow-up electrolytes and replace as need be. Continue Jardiance. Which amlodipine to valsartan therapy. (2) Atrial fibrillation with RVR: Status: Acute Assessment and Plan: Atrial fibrillation rapid ventricular response, new onset. Status post JOSE JUAN guided cardioversion. Start IV amiodarone drip and discontinue IV Cardizem. Continue full oral anticoagulation with Eliquis 5 mg b.i.d.. Twelve lead EKG needs to be pursued. Will continue to follow with you. Time Spent With Patient Time: Total time managing care of this patient today ____ minutes. Progress Note: Quality Stroke Does the patient have a stroke diagnosis?: No Procedures Date of Service Date of Service: 03/25/23
[2023-03-25] MEDS: Amiodarone/Dextrose 150 MG/100 ML PLAST..BAG 600 MG IV (14:58)
[2023-03-25] MEDS: Amiodarone HCL 900 MG in 0.9 % Sodium Chloride 500 ML 34.53 MG IVCONT (15:15)
[2023-03-25 16:36] LABS: Glucose, Whole Blood 102 mg/dL (60-115)
[2023-03-25 20:53] LABS: Glucose, Whole Blood 194 mg/dL (60-115)
[2023-03-25] MEDS: Insulin Lispro 100 UNIT/ML 3 ML VIAL SUBCUT (22:25)
[2023-03-26] VITALS (7 sets, daily range): BP systolic 105–145; BP diastolic 58–73; PULSE 59–71; RESP 16–20; TEMP 36.1–37.6; O2SAT 93–95
[2023-03-26] MEDS: Amiodarone HCL 900 MG in 0.9 % Sodium Chloride 500 ML 17.27 MG IVCONT ×2 (05:59→17:23)
[2023-03-26] MEDS: Clotrimazole 1 % Cream 15 GM TUBE 1 APPL TOPICAL ×3 (05:59→20:42)
[2023-03-26 07:30] LABS: Hematocrit 38.7 % (42.0-52.0); Hemoglobin 12.2 g/dl (14.0-18.0); Mean Corpuscular HGB Conc 31.5 g/dl (31.0-36.0); Mean Corpuscular Hemoglobin 28.2 pg (27.0-33.0); Mean Corpuscular Volume 89.4 fL (80.0-98.0); Mean Platelet Volume 11.4 fL (9.4-12.4); Platelet Count 193 X10*3/uL (160-400); Red Blood Count 4.33 X10*6/uL (4.60-5.80); Red Cell Distribution Width 15.7 % (11.0-16.0); White Blood Count 9.4 X10*3/uL (4.8-10.8)
[2023-03-26 07:34] LABS: Anion Gap 16 (12-20); Blood Urea Nitrogen 27 mg/dL (9-16); Calcium 8.9 mg/dL (8.4-10.2); Carbon Dioxide 24 mmol/L (22-29); Chloride 106 mmol/L (96-108); Creatinine Clr Calc Pharmacy 44.9; Estimated Glomerular Filt Rate 49; Glucose Fasting 84 mg/dL (60-99); Potassium 3.6 mmol/L (3.3-5.1); Sodium 142 mmol/L (135-145)
[2023-03-26 08:14] LABS: Glucose, Whole Blood 74 mg/dL (60-115)
[2023-03-26] MEDS: 0.9 % Sodium Chloride Flush 3 ML SYRINGE IVFLUSH ×3 (08:50→20:35)
[2023-03-26] MEDS: Cyanocobalamin (Vitamin B-12) 500 MCG TABLET 2500 MCG PO (08:50)
[2023-03-26] MEDS: Folic Acid 1 MG TABLET 0.5 MG PO (08:51)
[2023-03-26] MEDS: Cholecalciferol (Vitamin D3) 25 MCG TABLET PO (08:52)
[2023-03-26] MEDS: amLODIPine Besylate 5 MG TABLET PO (08:52)
[2023-03-26] MEDS: Pregabalin 100 MG CAPSULE PO ×3 (08:53→20:35)
[2023-03-26] MEDS: Aspirin Enteric Coated 81 MG TABLET.DR PO (08:53)
[2023-03-26] MEDS: Metoprolol Tartrate 25 MG TABLET PO ×4 (08:53→20:34)
[2023-03-26] MEDS: Fenofibrate 160 MG TABLET PO (08:53)
[2023-03-26] MEDS: Apixaban 5 MG TABLET PO ×2 (08:53→20:35)
[2023-03-26] MEDS: Empagliflozin 10 MG TABLET PO (08:53)
[2023-03-26] MEDS: Atorvastatin Calcium 40 MG TABLET PO (08:53)
[2023-03-26] MEDS: Furosemide 20 MG/2 ML VIAL IVPUSH ×2 (09:00→17:45)
--- NOTE | 2023-03-26 09:52 | PM.PNCARD ---
Subjective Subjective Date of Service: 03/26/23 Principal diagnosis: CHF, atrial fibrillation. Interval history: Patient status post JOSE JUAN guided cardioversion yesterday. Post cardioversion did convert then subsequently reverted back to AFib. Was started on amiodarone drip and overnight has converted back to sinus rhythm remaining sinus rhythm. Feeling better today. Review of Systems Constitutional: Reports no additional constitutional complaints Cardiovascular: Denies chest pain, Denies lightheadedness, Denies palpitations and Reports dyspnea on exertion Respiratory: Reports dyspnea on exertion Gastrointestinal: Reports no additional gastrointestinal complaints Reports system reviewed and no additional complaints, except as documented Endocrine: Denies palpitations Physical Exam Vital Signs: Last Vital Signs Temp 97.0 F 03/26/23 08:00 Pulse 66 03/26/23 08:00 Resp 18 03/26/23 08:00 BP 145/73 H 03/26/23 08:00 Pulse Ox 95 03/26/23 08:00 O2 Del Method Room Air 03/26/23 08:00 O2 Flow Rate 2 03/25/23 16:00 BMI result Body Mass Index 30.5 Const General: cooperative, comfortable, no acute distress, alert and awake Nutritional Appearance: overweight Orientation/consciousness: patient oriented x3 Neck Neck: Yes trachea midline, Yes supple and Yes JVD Cardio Rate: regular rate Rhythm: regular rhythm Heart sounds: S1 normal heart sound present, S2 normal heart sound present, no click, no gallops, no murmurs and no rubs GI Auscultation: normal bowel sounds Skin General skin exam: no rashes or lesions noted Neuro General: patient oriented x3 and no focal motor deficits Extrem General: No clubbing, No cyanosis and Yes edema Objective Labs and Meds 03/26/23 06:36 03/26/23 06:36 Lab results: Laboratory Results - last 24 hr 03/25/23 03/25/23 03/25/23 11:18 16:22 20:49 WBC RBC Hgb Hct MCV MCH MCHC RDW Plt Count MPV Absolute Nucleated RBC Nucleated RBC % (auto) Sodium Potassium Chloride Carbon Dioxide Anion Gap BUN Creatinine Estim Creat Clear Calc Estimated GFR POC Glucose 94 102 194 H Fasting Glucose Calcium 03/26/23 03/26/23 06:36 08:08 WBC 9.4 RBC 4.33 L Hgb 12.2 L Hct 38.7 L MCV 89.4 MCH 28.2 MCHC 31.5 RDW 15.7 Plt Count 193 MPV 11.4 Absolute Nucleated RBC 0.000 Nucleated RBC % (auto) 0.0 Sodium 142 Potassium 3.6 Chloride 106 Carbon Dioxide 24 Anion Gap 16 BUN 27 H Creatinine 1.39 Estim Creat Clear Calc 44.9 Estimated GFR 49 POC Glucose 74 Fasting Glucose 84 Calcium 8.9 Progress Note: A&P Assessment and plan (1) Acute heart failure: Status: Acute Assessment and Plan: New onset congestive heart failure with LV systolic dysfunction most likely tachycardia mediated cardiomyopathy. Switch amlodipine to valsartan 40 mg b.i.d.. Can switch to metoprolol 50 mg b.i.d.. Continue with Jardiance. Continue diuresis for 1 more day. Strict intake and output chart needs to be pursued. Follow-up BMP and BNP tomorrow. Heart failure education to be provided. Out of bed to chair and ambulate today as tolerated. Will try to pursue rhythm control approach as much as possible. (2) Atrial fibrillation with RVR: Status: Acute Assessment and Plan: New onset atrial fibrillation with rapid ventricular response status post JOSE JUAN guided cardioversion yesterday. Reverted back shortly after cardioversion to atrial fibrillation, back to sinus rhythm on IV amiodarone. Switch to amiodarone 400 mg b.i.d. for 2 weeks for loading followed by 200 mg daily. Continue full oral anticoagulation with Eliquis. Continue metoprolol therapy. Will follow up with you Time Spent With Patient Time: Total time managing care of this patient today ____ minutes. Progress Note: Quality Stroke Does the patient have a stroke diagnosis?: No Procedures Date of Service Date of Service: 03/26/23
--- NOTE | 2023-03-26 10:43 | HO.PM.IMPN ---
Subjective Subjective Date of Service: 03/26/23 Interval History: improving Physical Exam Vital Signs: Vital Signs: Last Vital Signs Temp 97.0 F 03/26/23 08:00 Pulse 66 03/26/23 08:00 Resp 18 03/26/23 08:00 BP 145/73 H 03/26/23 08:00 Pulse Ox 95 03/26/23 08:00 O2 Del Method Room Air 03/26/23 08:00 O2 Flow Rate 2 03/25/23 16:00 BMI result Body Mass Index 30.5 Const: General: cooperative, comfortable, no acute distress, alert and awake Nutritional Appearance: overweight Orientation/consciousness: patient oriented x3 Neck: Neck: Yes trachea midline, Yes supple and Yes JVD Cardio: Rate: regular rate Rhythm: regular rhythm Heart sounds: S1 normal heart sound present, S2 normal heart sound present, no click, no gallops, no murmurs and no rubs GI: Auscultation: normal bowel sounds Skin: General skin exam: no rashes or lesions noted Neuro: General: patient oriented x3 and no focal motor deficits Extrem: General: No clubbing, No cyanosis and Yes edema Objective Data Active Medications Acetaminophen (Acetaminophen 325 Mg Tablet) 650 mg PO Q6H PRN PRN Reason: Pain, Mild (Pain Scale 1-3) Amiodarone HCl (Amiodarone Hcl 200 Mg Tablet) 400 mg PO BID [facility] Apixaban (Apixaban 5 Mg Tablet) 5 mg PO BID [facility] Last Admin: 03/26/23 08:53 Dose: 5 mg Documented By: HAYDER Aspirin (Aspirin Enteric Coated 81 Mg Tablet.) 81 mg PO DAILY [facility] Last Admin: 03/26/23 08:53 Dose: 81 mg Documented By: HAYDER Atorvastatin Calcium (Atorvastatin Calcium 40 Mg Tablet) 40 mg PO DAILY [facility] Last Admin: 03/26/23 08:53 Dose: 40 mg Documented By: HAYDER Clotrimazole (Clotrimazole 1 % Cream 15 Gm Tube) 1 appl TOPICAL BID [facility] Last Admin: 03/26/23 09:00 Dose: 1 appl Documented By: HAYDER Cyanocobalamin (Cyanocobalamin (Vitamin B-12) 500 Mcg Tablet) 2,500 mcg PO DAILY [facility] Last Admin: 03/26/23 08:50 Dose: 2,500 mcg Documented By: HAYDER Dextrose (Dextrose 50 % 25 Gm/50 Ml Syringe) 25 gm IVPUSH Q15M PRN; Protocol PRN Reason: per Hypoglycemia Standing Ord. Docusate Sodium (Docusate Sodium 100 Mg Capsule) 100 mg PO DAILY PRN PRN Reason: Constipation Empagliflozin (Empagliflozin 10 Mg Tablet) 10 mg PO DAILY [facility] Last Admin: 03/26/23 08:53 Dose: 10 mg Documented By: HAYDER Fenofibrate (Fenofibrate 160 Mg Tablet) 160 mg PO DAILY [facility] Last Admin: 03/26/23 08:53 Dose: 160 mg Documented By: HAYDER Folic Acid (Folic Acid 1 Mg Tablet) 0.5 mg PO DAILY [facility] Last Admin: 03/26/23 08:51 Dose: 0.5 mg Documented By: HAYDER Furosemide (Furosemide 20 Mg/2 Ml Vial) 20 mg IVPUSH BID@0900,1800 [facility]; Protocol Last Admin: 03/26/23 09:00 Dose: 20 mg Documented By: HAYDER Glucose (Glucose Gel 15 Gm Gel..Gram.) 15 gm PO Q15M PRN; Protocol PRN Reason: per Hypoglycemia Standing Ord. Amiodarone HCl 900 mg/ Sodium (Chloride) 518 mls @ 34.533 mls/hr IVCONT .Q15H1M [facility]; Protocol Last Admin: 03/26/23 05:59 Dose: 0.5 mg/min, 17.27 mls/hr Documented By: MARIO Insulin Human Lispro (Insulin Lispro 100 Unit/Ml 3 Ml Vial) 0 unit SUBCUT QIDACHS [facility]; Protocol Last Admin: 03/26/23 08:50 Dose: Not Given Documented By: HAYDER Non-Admin Reason: No Insulin Coverage Metoprolol Tartrate (Metoprolol Tartrate 25 Mg Tablet) 25 mg PO QID [facility]; Protocol Last Admin: 03/26/23 08:53 Dose: 25 mg Documented By: HAYDER Ondansetron HCl (Ondansetron Hcl 4 Mg/2 Ml Vial) 4 mg IVPUSH Q8H PRN PRN Reason: Nausea and Vomiting Pregabalin (Pregabalin 100 Mg Capsule) 100 mg PO TID [facility] Last Admin: 03/26/23 08:53 Dose: 100 mg Documented By: HAYDER Sodium Chloride (0.9 % Sodium Chloride Flush 3 Ml Syringe) 3 ml IVFLUSH QSHIFT [facility] Last Admin: 03/26/23 08:50 Dose: 3 ml Documented By: HAYDER Valsartan (Valsartan 40 Mg Tablet) 20 mg PO BID [facility]; Protocol Vitamin D (Cholecalciferol (Vitamin D3) 25 Mcg Tablet) 25 mcg PO DAILY [facility] Last Admin: 03/26/23 08:52 Dose: 25 mcg Documented By: HAYDER Labs 03/26/23 06:36 03/26/23 06:36 Labs: Laboratory Results - last 24 hr 03/25/23 03/25/23 03/25/23 11:18 16:22 20:49 MCV MCH MCHC RDW Plt Count MPV Absolute Nucleated RBC Nucleated RBC % (auto) Anion Gap Estim Creat Clear Calc Estimated GFR POC Glucose 94 102 194 H Fasting Glucose Calcium 03/26/23 03/26/23 06:36 08:08 MCV 89.4 MCH 28.2 MCHC 31.5 RDW 15.7 Plt Count 193 MPV 11.4 Absolute Nucleated RBC 0.000 Nucleated RBC % (auto) 0.0 Anion Gap 16 Estim Creat Clear Calc 44.9 Estimated GFR 49 POC Glucose 74 Fasting Glucose 84 Calcium 8.9 Assessment and Plan (1) Acute heart failure: Status: Acute Plan 77M PMH CAD, non ischemic cardiomyopahty, hld, htn, copd, dm, jitendra, pvd, ckd 3, presented with new onset afib with rvr and sob New onset atrial fibrillation with rapid ventricular response Metoprolol 25 mg q.6, apixaban Plan for beverly/cardioversion 03/25 s/p amio iv, now on po load in sinus Acute on chronic systolic CHF IV Lasix CKD 3 Stable Diabetes Insulin Coronary disease Aspirin, apixaban, statin Hypertension Metoprolol, Amlodipine COPD Stable JITENDRA CPAP DVT prophylaxis with Eliquis Full code Reason for continued hospitalization: IV diuretics, monitor post cardioversion Time Spent With Patient Time: Total time managing care of this patient today ____ minutes. Quality Stroke Does the patient have a stroke diagnosis?: No VTE Prior VTE?: No VTE Risk Level:: Medical - moderate - high VTE Device Contraindication: Treatment Not Indicated VTE Drug Contraindication: N/A - Med Ordered
[2023-03-26 11:23] LABS: Glucose, Whole Blood 109 mg/dL (60-115)
[2023-03-26 16:18] LABS: Glucose, Whole Blood 168 mg/dL (60-115)
[2023-03-26] MEDS: Insulin Lispro 100 UNIT/ML 3 ML VIAL SUBCUT (17:32)
--- NOTE | 2023-03-26 19:04 | HO.POSTANES ---
Post Anesthesia Evaluation Post Anesthesia Evaluation Date of Service: 03/26/23 Vital Signs: Vital Signs Temp Pulse Resp BP Pulse Ox O2 Del Method 03/26/23 17:44 71 137/64 03/26/23 15:32 97.0 F 61 16 105/58 L 94 Room Air 03/26/23 11:17 97.0 F 65 17 130/59 L 95 Room Air 03/26/23 08:00 97.0 F 66 18 145/73 H 95 Room Air Anesthesia: Monitored Mental Status: Awake Pain Control: Satisfactory Nausea/Vomiting: None Hydration: Adequate Anesthesia-Related Issues: No Anes. Related Issues
[2023-03-26] MEDS: Amiodarone HCL 200 MG TABLET 400 MG PO (20:35)
[2023-03-26] MEDS: Valsartan 40 MG TABLET 20 MG PO (20:35)
[2023-03-26 20:48] LABS: Glucose, Whole Blood 129 mg/dL (60-115)
--- NOTE | 2023-03-26 23:00 | PC.RT ---
Pt refusing CPAP; pt will call if needed
[2023-03-27 01:45] VITALS: BP 114/60; PULSE 61
[2023-03-27 03:40] VITALS: BP 140/66; PULSE 59; RESP 20; TEMP 36.1; O2SAT 95
[2023-03-27 06:25] LABS: Hematocrit 39.8 % (42.0-52.0); Hemoglobin 12.6 g/dl (14.0-18.0); Mean Corpuscular HGB Conc 31.7 g/dl (31.0-36.0); Mean Corpuscular Hemoglobin 28.4 pg (27.0-33.0); Mean Corpuscular Volume 89.6 fL (80.0-98.0); Mean Platelet Volume 11.5 fL (9.4-12.4); Platelet Count 230 X10*3/uL (160-400); Red Blood Count 4.44 X10*6/uL (4.60-5.80); Red Cell Distribution Width 15.4 % (11.0-16.0); White Blood Count 9.1 X10*3/uL (4.8-10.8)
[2023-03-27 06:57] LABS: Anion Gap 15 (12-20); Blood Urea Nitrogen 30 mg/dL (9-16); Calcium 9.1 mg/dL (8.4-10.2); Carbon Dioxide 27 mmol/L (22-29); Chloride 106 mmol/L (96-108); Creatinine Clr Calc Pharmacy 41.1; Estimated Glomerular Filt Rate 45; Glucose Fasting 97 mg/dL (60-99); Potassium 3.7 mmol/L (3.3-5.1); Sodium 144 mmol/L (135-145)
[2023-03-27 07:54] VITALS: BP 149/81; PULSE 73; RESP 19; TEMP 36.2; O2SAT 95
[2023-03-27 07:59] LABS: Glucose, Whole Blood 93 mg/dL (60-115)
[2023-03-27] MEDS: Amiodarone HCL 200 MG TABLET 400 MG PO (08:39)
[2023-03-27] MEDS: Aspirin Enteric Coated 81 MG TABLET.DR PO (08:39)
[2023-03-27] MEDS: Fenofibrate 160 MG TABLET PO (08:39)
[2023-03-27] MEDS: Atorvastatin Calcium 40 MG TABLET PO (08:39)
[2023-03-27] MEDS: Cyanocobalamin (Vitamin B-12) 500 MCG TABLET 2500 MCG PO (08:39)
[2023-03-27] MEDS: Cholecalciferol (Vitamin D3) 25 MCG TABLET PO (08:39)
[2023-03-27] MEDS: Empagliflozin 10 MG TABLET PO (08:39)
[2023-03-27] MEDS: Metoprolol Tartrate 25 MG TABLET PO ×2 (08:39→11:54)
[2023-03-27] MEDS: Pregabalin 100 MG CAPSULE PO (08:40)
[2023-03-27] MEDS: Folic Acid 1 MG TABLET 0.5 MG PO (08:40)
[2023-03-27] MEDS: Apixaban 5 MG TABLET PO (08:40)
[2023-03-27] MEDS: Valsartan 40 MG TABLET 20 MG PO (08:40)
[2023-03-27] MEDS: 0.9 % Sodium Chloride Flush 3 ML SYRINGE IVFLUSH (08:44)
[2023-03-27] MEDS: Furosemide 20 MG/2 ML VIAL IVPUSH (08:44)
[2023-03-27] MEDS: Clotrimazole 1 % Cream 15 GM TUBE 1 APPL TOPICAL (08:45)
--- NOTE | 2023-03-27 10:24 | PM.DS ---
DS: Providers Provider Date of Service: 03/27/23 Date of admission: 03/23/23 18:15 Primary care physician: Elida Siddiqui MD Consults: 03/23/23 18:20 Consult to Cardiology Routine Consulting Provider: [facility] Reason for consultation: afib rvr DS: Diagnosis Discharge Diagnosis (1) Acute heart failure: Status: Acute DS: Summary Hospital Course Hospital Course: from initial hpi: 77-year-old male with history of coronary artery disease, stable angina, nonischemic cardiomyopathy, hyperlipidemia, hypertension, COPD, [id number] type 2 diabetes, JITENDRA compliant with CPAP, peripheral artery disease on DAPT, and history of frequent PVC's previously treated with amiodorone but dc'd due to pulmonary complication s/p cardiac ablation presented to the ED for evaluation of shortness of breath. He has dyspnea on exertion at baseline, but over the last two weeks has had progressively worsening dyspnea at rest and with exertion along with wheezing with exertion. He states about 2 weeks ago he developed a cough with loss of taste and anorexia. He denies any lightheadedness, near syncope, palpitations, or chest pain. No orthopnea or PND. He does have bilateral pedal edema but states this is longstanding. Reports occassional etoh use. No smoking or drug use. On arrival, patient tachycardic and tachypneic, but no hypotension. Heart rates have been ranging 120-165. He was given 10 mg IV diltiazem x2 with minimal improvement in heart rate and remained in atrial fibrillation with RVR following calcium gluconate. Subsequently, started on diltiazem drip. Hematology labs baseline. Renal function baseline, electrolyte levels normal though magnesium level is pending. AST 97, ALT 45. Initial troponin 51.2, repeat pending. BNP 1402. TSH pending. He has negative for COVID-19, RSV, influenza. EKG shows atrial fibrillation with RVR and PVCs, rate 151 without any SIERRA or depressions. hospital course: Patient was admitted for new onset atrial fibrillation with rapid ventricular response. He underwent JOSE JUAN and cardioversion on March 25 and was put on amiodarone IV and transitioned to p.o. loading. He converted to sinus rhythm. He will continue amiodarone 400 mg b.i.d. for 2 weeks and then 200 mg maintenance. He has been started on apixaban. For acute on chronic systolic CHF he was treated with IV Lasix and diuresed well. On discharge he will continue Lasix 40 mg daily, valsartan 40 mg b.i.d. and metoprolol 50 mg b.i.d.. For CKD 3 he remained stable. For diabetes he was continued insulin. For coronary disease his antiplatelets have been discontinued and he will continue on apixaban and statin. For hypertension his amlodipine has been discontinued and he will continue on meds described above. For JITENDRA he was continued on CPAP at night. Patient is now feeling better will be discharged home. Time Spent with Patient Time attestation: Total time managing care of this patient today ____ minutes. Discharge coordination time: Greater than 30 minutes Quality: Safe Use of Opioids Does Pt have an Active Cancer Diagnosis on the Problem List?: No Quality: Stroke Does the patient have a stroke diagnosis?: No Physical Exam Vital Signs: Vital Signs: Last Vital Signs Temp 97.2 F 03/27/23 07:54 Pulse 73 03/27/23 07:54 Resp 19 03/27/23 07:54 BP 149/81 H 03/27/23 07:54 Pulse Ox 95 03/27/23 07:54 O2 Del Method Room Air 03/27/23 07:54 O2 Flow Rate 2 03/25/23 16:00 BMI result Body Mass Index 30.5 General: AO X 3, no acute distress Resp: CTA bilateral, no accessory muscles used CVS: S1,S2,RRR GI: soft, non tender, non distended Neuro: motor grossly intact, alert Psych: appropriate affect, appropriate insight DS: Data Data Completed and Pending Labs on day of discharge: Laboratory Results - last 24 hr 03/26/23 03/26/23 03/26/23 11:17 15:35 20:41 WBC RBC Hgb Hct MCV MCH MCHC RDW Plt Count MPV Absolute Nucleated RBC Nucleated RBC % (auto) Sodium Potassium Chloride Carbon Dioxide Anion Gap BUN Creatinine Estim Creat Clear Calc Estimated GFR POC Glucose 109 168 H 129 H Fasting Glucose Calcium 03/27/23 03/27/23 05:37 07:53 WBC 9.1 RBC 4.44 L Hgb 12.6 L Hct 39.8 L MCV 89.6 MCH 28.4 MCHC 31.7 RDW 15.4 Plt Count 230 MPV 11.5 Absolute Nucleated RBC 0.000 Nucleated RBC % (auto) 0.0 Sodium 144 Potassium 3.7 Chloride 106 Carbon Dioxide 27 Anion Gap 15 BUN 30 H Creatinine 1.52 H Estim Creat Clear Calc 41.1 Estimated GFR 45 POC Glucose 93 Fasting Glucose 97 Calcium 9.1 Discharge Plan Discharge Anticipated Discharge Date/Time: 03/27/23 10:19 Patient Disposition: Home, Self-Care Discharge Diagnosis: chf, afib Referrals: Po,Elida Blevins MD [Primary Care Provider] - 1 Week Discharge Medications: New Eliquis 5 mg Tablet 5 mg PO BID Qty: 60 0RF amiodarone 200 mg Tablet 400 mg PO BID Qty: 90 0RF Rx Instructions: 400mg bid for 2 weeks (04/08/23), then decrease to 200mg daily furosemide 40 mg tablet 40 mg PO DAILY Qty: 30 0RF valsartan 40 mg tablet 40 mg PO BID Qty: 60 0RF metoprolol tartrate 50 mg tablet 50 mg PO BID Qty: 60 0RF Continued Tradjenta 5 mg tablet 5 mg PO DAILY 90 Days Qty: 90 3RF (DME) AUTO PAP 6-20 cm H2O humidified AIR See Rx Instructions .Route .MEDSUPPLY Qty: 1 0RF Rx Instructions: As directed atorvastatin 40 mg tablet 40 mg PO DAILY Qty: 90 3RF ciclopirox 0.77 % cream 1 appl topical BID cholecalciferol (vitamin D3) 25 mcg (1,000 unit) capsule 25 mcg PO DAILY cyanocobalamin (vitamin B-12) 2,500 mcg tablet 2,500 mcg PO DAILY Jardiance 10 mg tablet 10 mg PO DAILY Qty: 30 3RF fenofibrate 160 mg tablet 160 mg PO DAILY Qty: 90 3RF folic acid 400 mcg tablet 0.4 mg PO DAILY pregabalin 100 mg capsule 100 mg PO TID Discontinued clopidogrel 75 mg tablet 75 mg PO DAILY Qty: 90 3RF amlodipine 5 mg tablet 5 mg PO DAILY 90 Days Qty: 90 2RF aspirin [Adult Low Dose Aspirin] 81 mg tablet,delayed release (DR/EC) 81 mg PO DAILY Discharge Orders: Discharge Order (Routine); Ordered 03/27/23 Ordered By: Ryan Rader Diet: Advance to usual diet Activity on Discharge: As tolerated Stand Alone Forms: Patient Portal Discharge page Care Plan Goals: recovery Health Concerns: afib, chf Plan of Treatment: meds as prescribed, follow up cardio Assessment: see above
--- NOTE | 2023-03-27 10:53 | MHC.CM.PN ---
order for home, self care. CM acknowledge.
[2023-03-27 11:40] VITALS: BP 113/56; PULSE 65; RESP 18; TEMP 36.2; O2SAT 93
[2023-03-27 11:49] LABS: Glucose, Whole Blood 172 mg/dL (60-115)
[2023-03-27] MEDS: Insulin Lispro 100 UNIT/ML 3 ML VIAL SUBCUT (11:53)
== END 2023-03-27 13:28 | disposition home or self-care (01) | DRG 308 ==
LOC: HO.ED 16:51 → HO.EDOVER 18:26 → HO.IMC 18:59
PROVIDERS: Internal Medicine Cardiovascular Disease; Physician Assistant; Admitting Provider Physician Assistant; Emergency Provider Emergency Medicine; PCP Internal Medicine; Visit Provider Internal Medicine
PROC: 5A2204Z Restoration of Cardiac Rhythm, Single (ICD-10-PCS; CPT 93312; principal; 2023-03-25 12:30)
PROC: 5A2204Z Restoration of Cardiac Rhythm, Single (ICD-10-PCS; 2023-03-25 12:30)
DX: I48.91 Unspecified atrial fibrillation (principal); I50.23 Acute on chronic systolic (congestive) heart failure; I13.0 Hypertensive heart and chronic kidney disease with heart failure and stage 1 through stage 4 chronic kidney disease, or unspecified chronic kidney disease; E78.00 Pure hypercholesterolemia, unspecified; G47.33 Obstructive sleep apnea (adult) (pediatric); I25.118 Atherosclerotic heart disease of native coronary artery with other forms of angina pectoris; E11.22 Type 2 diabetes mellitus with diabetic chronic kidney disease; E11.51 Type 2 diabetes mellitus with diabetic peripheral angiopathy without gangrene; N18.30 Chronic kidney disease, stage 3 unspecified; Z20.822 Contact with and (suspected) exposure to COVID-19; Z79.899 Other long term (current) drug therapy
CPT/HCPCS: 0241U; 36415; 71046; 80048; 80053; 82947; 83735; 83880; 84443; 84484; 85025; 85027; 85610; 85730; 92960; 93005; 93306; 93970; 94660; 99285; J0282; J0283; J0613; J1940; J2371; Q9957

== ENCOUNTER 2023-03-23 18:15 | Outpatient (BNV) | payer MEDICARE, OTHER, SELFPAY | END 2023-03-25 11:27 | PROVIDERS: Admitting Provider Physician Assistant; Emergency Provider Emergency Medicine; PCP Internal Medicine; Visit Provider Internal Medicine Cardiovascular Disease | DX: I48.91 Unspecified atrial fibrillation (principal); I36.1 Nonrheumatic tricuspid (valve) insufficiency | CPT/HCPCS: 93312; 93320; 93325 ==

== ENCOUNTER 2023-03-23 18:15 | Outpatient (BNV) | payer MEDICARE, OTHER, SELFPAY | END 2023-03-24 07:00 | PROVIDERS: Admitting Provider Physician Assistant; Emergency Provider Emergency Medicine; PCP Internal Medicine; Visit Provider Internal Medicine Cardiovascular Disease | DX: I34.0 Nonrheumatic mitral (valve) insufficiency (principal); I34.81 Nonrheumatic mitral (valve) annulus calcification | CPT/HCPCS: 93306 ==

== ENCOUNTER → 2023-03-23 18:15 | Outpatient (BNV) | payer MEDICARE, OTHER, SELFPAY | PROVIDERS: Admitting Provider Physician Assistant; Emergency Provider Emergency Medicine; PCP Internal Medicine; Visit Provider Internal Medicine | DX: I50.9 Heart failure, unspecified (principal) | CPT/HCPCS: 99223; 99233; 99239 ==

== ENCOUNTER → 2023-03-23 18:15 | Outpatient (BNV) | payer MEDICARE, OTHER, SELFPAY | PROVIDERS: Admitting Provider Physician Assistant; Emergency Provider Emergency Medicine; PCP Internal Medicine; Visit Provider Internal Medicine Cardiovascular Disease | DX: I50.9 Heart failure, unspecified (principal); I48.19 Other persistent atrial fibrillation | CPT/HCPCS: 92960; 99223; 99233 ==

== ENCOUNTER 2023-03-29 11:49 | Outpatient (AMB) | payer MEDICARE, OTHER, SELFPAY ==
--- NOTE | 2023-03-29 11:56 | A.OFFPC_ITS ---
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 Required: No Palletizer Operator: Not Required per policy Accompanied by: Self / Same As Patient Allergies lisinopril Allergy (Unknown, Verified 03/29/23 12:11) Unknown Penicillins [PENICILLINS] Allergy (Unknown, Verified 03/29/23 12:11) UNKNOWN REACTION-CHILDHOOD ALLERGY Medication List - Last Reconciled 03/29/23 by BARI Delgado amiodarone 400 mg (2 x 200 mg) PO BID apixaban (Eliquis) 5 mg PO BID atorvastatin 40 mg PO DAILY [AUTO PAP 6-20 cm H2O humidified AIR As directed] cholecalciferol (vitamin D3) 25 mcg PO DAILY ciclopirox 0.77% 1 appl topical BID cyanocobalamin (vitamin B-12) 2,500 mcg PO DAILY empagliflozin (Jardiance) 10 mg PO DAILY empagliflozin (Jardiance) 10 mg PO DAILY fenofibrate 160 mg PO DAILY folic acid 0.4 mg PO DAILY furosemide 40 mg PO DAILY linagliptin (Tradjenta) 5 mg PO DAILY 90 days metoprolol tartrate 50 mg PO BID pregabalin 100 mg PO TID valsartan 40 mg PO BID Tobacco use date assessed: 03/29/23 Fall risk assessment: No Falls in past year Last assessed Fall Risk: 03/29/23 Dental Screening Dental Screen Date: 03/29/23 Did you have a dental visit in the last 12 months?: Yes Did you have a dental problem in the last 6 months where you did not have access to dental care?: No Was dental information given to patient?: Patient has dentist HPI HPI Comments History of Present Illness Details 77-year-old male past medical history of CAD, angina, non ischemic cardiomyopathy, hyperlipidemia, hypertension, COPD, type 2 diabetes mellitus, JITENDRA on CPAP, PAD. Patient presents today for hospital discharge follow- up. Hospital Course (Dr. Rader): from initial hpi: 77-year-old male with history of coronar y artery disease, stable angina, nonischemic cardiomyopathy, hyperlipidemia, hypertension, COPD, [id number] type 2 diabetes, JITENDRA compliant with CPAP, peripheral artery disease on DAPT, and history of frequent PVC's previously treated with amiodorone but dc'd due to pulmonary complication s/p cardiac ablation presented to the ED for evaluation of shortness of breath. He has dyspnea on exertion at baseline, but over the last two weeks has had progressively worsening dyspnea at rest and with exertion along with wheezing with exertion. He states about 2 weeks ago he developed a cough with loss of taste and anorexia. He denies any lightheadedness, near syncope, palpitations, or chest pain. No orthopnea or PND. He does have bilateral pedal edema but states this is longstanding. Reports occassional etoh use. No smoking or drug use. On arrival, patient tachycardic and tachypneic, but no hypotension. Heart rates have been ranging 120-165. He was given 10 mg IV diltiazem x2 with minimal improvement in heart rate and remained in atrial fibrillation with RVR following calcium gluconate. Subsequently, started on diltiazem drip. Hematology labs baseline. Renal function baseline, electrolyte levels normal though magnesium level is pending. AST 97, ALT 45. Initial troponin 51.2, repeat pending. BNP 1402. TSH pending. He has negative for COVID-19, RSV, influenza. EKG shows atrial fibrillation with RVR and PVCs, rate 151 without any SIERRA or depressions. hospital course: Patient was admitted for new onset atrial fibrillation with rapid ventricular response. He underwent JOSE JUAN and cardioversion on March 25 and was put on amiodarone IV and transitioned to p.o. loading. He converted to sinus rhythm. He will continue amiodarone 400 mg b.i.d. for 2 weeks and then 200 mg maintenance. He has been started on apixaban. For acute on chronic systolic CHF he was treated with IV Lasix and diuresed well. On discharge he will continue Lasix 40 mg daily, valsartan 40 mg b.i.d. and metoprolol 50 mg b.i.d.. For CKD 3 he remained stable. For diabetes he was continued insulin. For coronary disease his antiplatelets have been discontinued and he will continue on apixaban and statin. For hypertension his amlodipine has been discontinued and he will continue on meds described above. For JITENDRA he was continued on CPAP at night. Patient is now feeling better will be discharged home. Patient reports just got his prescriptions this morning. States mild sob, denies CP and palpitations. Patient states has an appointment to poultry picking machine tender 3 day holter m onitor tomorrow. Patient reports he is unsure if he seen a abstract clerk tomorrow as well, patient advised to call cardiology offices to verify follow-up appointment. Patient educated to take amiodarone 400 mg b.i.d. x2 weeks then decrease to 200 mg daily as noted in discharge instructions. [facility] Medical History Cardiomyopathy Cataracts, bilateral Chronic otitis media Peripheral vascular disease Type 2 diabetes mellitus with hyperglycemia Erectile dysfunction Post herpetic neuralgia COPD (chronic obstructive pulmonary disease) Obstructive sleep apnea Rotator cuff tear, left Carotid stenosis Tubular adenoma of colon Hypertension Hypercholesterolemia PVCs (premature ventricular contractions) NICM (nonischemic cardiomyopathy) CAD (coronary artery disease) Surgical History History of cardiac radiofrequency ablation History of colonoscopy History of cataract surgery History of repair of rotator cuff History of cardiac catheterization History of tonsillectomy History of carotid endarterectomy Family History Father H/O ETOH abuse Hypertension Mother Hypertension Brother Diabetes Brother No problems noted. Sister No problems noted. Sister No problems noted. Social History Housing: House Do you presently have visiting nurse or other home services: No Alcohol intake: current Alcohol intake frequency: a few times a week Alcohol type: beer Patient Tobacco Use Status: Never used Tobacco e-Cigarette/Vaping Use: Never Used Second Hand Smoke Exposure: No Advance Directives Date on File: 11/17/21 service: No Current occupational status: employed Cognitive needs: No Hearing needs: Yes Vision needs: Yes Questionnaire Thrive Questionnaire Date Thrive assessed: 03/24/23 RENETTA-7 AMB Questionnaire RENETTA-7 Date RENETTA - 7 assessed: 06/11/22 Source: Developed by Drs. Marcos Phan, Holley Encinas, Tk Car and colleagues, with an educational deonte from [employer]. Review of Systems Const Denies chills, Denies fatigue, Denies fever(s) and Denies poor appetite Eyes Denies no additional complaints ENT Reports Normal hearing present Card Denies chest pain, Denies syncope, Denies rapid heart rate and Denies dyspnea Resp Denies cough and Denies dyspnea GI Denies change in stool character, Denies constipation, Denies diarrhea, Denies nausea and Denies vomiting Denies dysuria, Denies urinary frequency and Denies urinary urgency Neuro Reports Normal hearing present, Denies confusion and Denies syncope Psych Denies confusion Endo Denies fatigue Physical exam (Primary Care) Vital Signs: Last Vital Signs Pulse 64 03/29/23 11:58 BP 132/70 03/29/23 11:58 Pulse Ox 97 03/29/23 11:58 Oxygen Delivery Method Room Air 03/29/23 11:58 BMI result Body Mass Index 29.4 Tobacco/Smoking Status: Tobacco use Status Tobacco use date assessed 03/29/23 03/29/23 12:07 Patient Tobacco Use Status Never used Tobacco 03/29/23 12:07 e-Cigarette/Vaping Use Never Used 03/29/23 12:07 Thrive Assessment: Date of Thrive Assessment Date Thrive assessed 03/24/23 03/29/23 12:07 Const General: No confusion Orientation/consciousness: No confusion HENMT Head: Yes normocephalic and Yes atraumatic Eyes Conjunctivae: conjunctivae normal Chest Chest palpation & inspection: normal inspection of the chest Resp Effort & Inspection: normal respiratory effort Auscultation: clear to auscultation bilaterally, no crackles, no rhonchi and no wheezes Cardio Rate: regular rate Rhythm: regular rhythm Heart sounds: S1 normal heart sound present and S2 normal heart sound present GI Inspection: Yes normal to inspection Neuro General: No confusion Cranial nerves: Yes Normal hearing present Extrem General: No edema Assessment and Plan Assessment & Plan (1) Atrial fibrillation: Code(s): I48.91 - Unspecified atrial fibrillation Plan: Continue on Eliquis mg b.i.d. for anticoagulation Continue on amiodarone 400 mg b.i.d. x2 weeks then decrease to 200 mg daily, metoprolol 50 mg b.i.d.. Patient has upcoming appointment to poultry picking machine tender Holter monitor tomorrow. Patient advised to call cardiology office to verify follow-up appointment. (2) Type 2 diabetes mellitus with hyperglycemia: Comment: Dr. 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 Patient educated to decrease the amount of carbohydrate intake such as pasta, bread, rice and potatoes are all sugar in addition to the sweet stuff. Remember that fruits are good but they also have sugar (3) Hypertension: Code(s): I10 - Essential (primary) hypertension Qualifiers: Hypertension type: essential hypertension Qualified Code(s): I10 - Esse ntial (primary) hypertension Plan: Continue on valsartan 40 mg b.i.d. and metoprolol 50 mg b.i.d. Blood pressure goal less than 140/90. Follow low-salt diet and exercise. (4) Hypercholesterolemia: Code(s): E78.00 - Pure hypercholesterolemia, unspecified Plan: Continue on atorvastatin 40 mg daily. Avoid fried foods, chicken skin, eggs, butter,margarine, pastries and?? red meat. LDL goal less than 70, LDL 02/28/23:83 (5) CAD (coronary artery disease): Code(s): I25.10 - Atherosclerotic heart disease of [place] coronary artery without angina pectoris Qualifiers: Coronary Disease-Associated Artery/Lesion type: [place] artery [place] vs. transplanted heart: [place] heart Associated angina: without angina Qualified Code(s): I25.10 - Atherosclerotic heart disease of [place] coronary artery without angina pectoris (6) Acute heart failure: Code(s): I50.9 - Heart failure, unspecified Plan: Continue on furosemide 40 mg daily. Continue to follow with Cardiology. Plan Keep scheduled follow up with pcp in April or follow up sooner if needed. Orders: Orders Complete Blood Count Auto Diff Today Z13.0 - Encounter for screening for diseases of the blood and blood-forming organs and certain disorders involving the immune mechanism Comprehensive Met. 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 transplanted heart: [place] heart Associated angina: without angina Acute heart failure I50.9
[2023-03-29 11:58] VITALS: BP 132/70; PULSE 64; O2SAT 97; BMI 29.4
== END 2023-03-29 12:33 | disposition home or self-care (01) ==
PROVIDERS: PCP Internal Medicine; Visit Provider Nurse Practitioner Family
DX: I48.91 Unspecified atrial fibrillation (principal); E11.65 Type 2 diabetes mellitus with hyperglycemia; I11.0 Hypertensive heart disease with heart failure; I50.9 Heart failure, unspecified; E78.00 Pure hypercholesterolemia, unspecified; I25.10 Atherosclerotic heart disease of native coronary artery without angina pectoris
CPT/HCPCS: 99214

== ENCOUNTER → 2023-03-30 08:56 | Outpatient (REF) | payer MEDICARE, OTHER, SELFPAY ==
--- NOTE | 2023-03-30 08:59 | HM_ITS ---
Conclusion: 1. Patient was monitored for total period of 2 days and 23 hours 2. Baseline was atrial fibrillation with average heart of 107 beats per minute within adequate rate control with 55% of time heart rate about 100 beats per minute 3. No significant pauses noted 4. Occasional PVCs noted 5. No patient reported symptoms MTDD
== END ==
LOC: HO.CARD 08:56
PROVIDERS: PCP Internal Medicine; Visit Provider Internal Medicine Cardiovascular Disease
DX: I48.91 Unspecified atrial fibrillation (principal); I50.9 Heart failure, unspecified
CPT/HCPCS: 93242

== ENCOUNTER → 2023-03-30 08:59 | Outpatient (BNV) | payer MEDICARE, OTHER, SELFPAY | PROVIDERS: PCP Internal Medicine; Visit Provider Internal Medicine Cardiovascular Disease | DX: I48.91 Unspecified atrial fibrillation (principal) | CPT/HCPCS: 93244 ==

== ENCOUNTER 2023-04-08 14:02 | Outpatient (AMB) | payer MEDICARE, OTHER, SELFPAY ==
--- NOTE | 2023-04-08 14:03 | A.OFFVIS_ITS ---
Intake Vital Signs 04/08/23 14:04 Height 5 ft 6 in Weight 183 lb 13.848 oz BMI 29.7 BP 100/62 Blood Pressure Location Lt brachial Position Sitting Pulse 100 Intake Visit Reasons: follow-up after holter Allergies lisinopril Allergy (Unknown, Verified 04/08/23 14:07) Unknown Penicillins [PENICILLINS] Allergy (Unknown, Verified 04/08/23 14:07) UNKNOWN REACTION-CHILDHOOD ALLERGY Medication List - Last Reconciled 04/08/23 by SALOMON Grubbs amiodarone 400 mg (2 x 200 mg) PO BID apixaban (Eliquis) 5 mg PO BID atorvastatin 40 mg PO DAILY [AUTO PAP 6-20 cm H2O humidified AIR As directed] cholecalciferol (vitamin D3) 25 mcg PO DAILY ciclopirox 0.77% 1 appl topical BID cyanocobalamin (vitamin B-12) 2,500 mcg PO DAILY empagliflozin (Jardiance) 10 mg PO DAILY fenofibrate 160 mg PO DAILY folic acid 0.4 mg PO DAILY furosemide 40 mg PO DAILY linagliptin (Tradjenta) 5 mg PO DAILY 90 days metoprolol tartrate 50 mg PO BID pregabalin 100 mg PO TID valsartan 40 mg PO BID HPI follow-up after holter HPI Details Deondre is a 77-year-old male with past medical history of hypertension, hyperlipidemia, diabetes, obstructive sleep apnea with CPAP use, carotid stenosis, peripheral vascular disease, frequent PVCs, coronary artery disease with stents in the LAD and RCA who was recently admitted to [facility] with increased shortness of breath and found to have new onset atrial fibrillation and congestive heart failure. He was diuresed and put on daily Lasix. He did undergo a JOSE JUAN cardioversion and was started on anticoagulation. He was put on amiodarone loading dose. Outpatient Holter monitor was completed and he now presents for follow-up. Today he reports that he has been feeling generally well since his hospital discharge. He has his usual chronic shortness of breath with activity. He d enies shortness of breath at rest, PND, orthopnea or edema. He has no chest discomfort at rest or with activity. He does not feel heart palpitations. He did not feel palpitations when he presented [place] [facility] [place]. No presyncope, syncope, falls. He ambulates with use of a walker for steadiness. Taking all meds as directed. No bleeding issues reported with anticoagulation. [facility] Medical History Cardiomyopathy Cataracts, bilateral Chronic otitis media Peripheral vascular disease Type 2 diabetes mellitus with hyperglycemia Erectile dysfunction Post herpetic neuralgia COPD (chronic obstructive pulmonary disease) Obstructive sleep apnea Rotator cuff tear, left Carotid stenosis Tubular adenoma of colon Hypertension Hypercholesterolemia PVCs (premature ventricular contractions) NICM (nonischemic cardiomyopathy) CAD (coronary artery disease) Surgical History History of cardiac radiofrequency ablation History of colonoscopy History of cataract surgery History of repair of rotator cuff History of cardiac catheterization History of tonsillectomy History of carotid endarterectomy Family History Father H/O ETOH abuse Hypertension Mother Hypertension Brother Diabetes Brother No problems noted. Sister No problems noted. Sister No problems noted. Social History Housing: House Do you presently have visiting nurse or other home services: No Alcohol intake: current Alcohol intake frequency: a few times a week Alcohol type: beer Patient Tobacco Use Status: Never used Tobacco e-Cigarette/Vaping Use: Never Used Second Hand Smoke Exposure: No Advance Directives Date on File: 11/17/21 service: No Current occupational status: employed Cognitive needs: No Hearing needs: Yes Vision needs: Yes Review of Systems Const All systems reviewed & are unremarkable except as noted in HPI and below ENT Denies dizziness Card Denies chest pain, Denies chest pain at rest, Denies chest pain with activity, Denies rapid heart rate, Denies pedal edema, Denies edema, Denies leg edema, Denies lightheadedness, Denies palpitations, Denies dyspnea, Reports dyspnea on exertion and Denies orthopnea Resp Denies cough, Denies dyspnea and Reports dyspnea on exertion GI Denies hematochezia and Denies change in stool character Musc Details: ambulates with walker Denies abnormal gait, Denies limited range of motion, Denies muscle cramps, Denies muscle weakness, Denies numbness, Denies radiating pain into limb, Denies stiffness and Denies tingling Neuro Denies abnormal gait, Denies dizziness, Denies numbness and Denies tingling Endo Denies palpitations Physical Exam Vital Signs: Last Vital Signs Pulse 100 04/08/23 14:04 BP 100/62 04/08/23 14:04 BMI result Body Mass Index 29.7 Const General: cooperative, comfortable and no acute distress Orientation/consciousness: patient oriented x3 Neck Neck: Yes normal visual inspection Resp Effort & Inspection: normal respiratory effort Auscultation: clear to auscultation bilaterally, no rales, no rhonchi and no wheezes Cardio Jugular venous distension: no JVD Rate: regular rate Rhythm: abnormal rhythm Heart sounds: S1 normal heart sound present, S2 normal heart sound present, no murmurs and no rubs Neuro General: patient oriented x3 Extrem Other: sock markings General: Yes normal to inspection Psych Appearance: grossly normal Mental Status: mental status grossly normal Speech and movement: Normal speech and movement present Office Procedures EKG Details: Today, read by me, atrial fibrillation with 2 PVCs, left axis deviation, right bundle branch block, left anterior fascicular block, can not exclude prior inferior infarct, lateral T-wave abnormality, rate 100, QTC falsely elevated at 508 millisecond [id number], Complete Assessment & Plan Assessment & Plan (1) Atrial fibrillation with RVR: Code(s): I48.91 - Unspecified atrial fibrillation Plan: Recent [facility] [place] with shortness of breath found to have new onset AFib RVR and Congestive heart failure with BNP elevated to 14 O2. EKG showed AFib RVR with rate up to 151. He was treated for heart rate control. On 03/25 he underwent a JOSE JUAN cardioversion with Dr. Gonzalez. He was successfully converted to sinus rhythm. He was continued on metoprolol and amiodarone loading dose added. Holter monitor done on 03/30/2023 for 3 days shows atrial fibrillation with average heart rate 107. Today he reports that he has his usual chronic shortness of breath with activity. He states overall his breathing is improved since his hospital admission. He denies any heart palpitations. EKG today confirms atrial fibrillation, bifascicular block which is unchanged and heart rate 100. Blood pressure is low at 1 100/62. Will have him increase his metoprolol from 50 mg b.i.d. up to 75 mg b.i.d.. Will reduce valsartan from 40 mg b.i.d. down to 40 mg once daily. He is almost completed amiodarone load and will then be on 200 mg once daily. He has been on Eliquis 5 mg b.i.d. uninterrupted since 03/24/2023. Reviewed diagnosis of atrial fibrillation, stroke risk with AFib, need for anticoagulation and treatment plans. Discussed repeat cardioversion now that he is loaded with amiodarone and he is agreeable to proceed. Will check with Dr. Jackson regarding date for cardioversion. Patient tells me that he also will need a cardiac catheterization which had been previously scheduled and canceled due to his hospital admission. Will discuss date cardiac catheterization with Dr. Jackson as well. Cardiology office visit to be determined based on above procedures. (2) Acute heart failure: Code(s): I50.9 - Heart failure, unspecified Plan: Evidence of heart failure on last admission in setting of AFib RVR. Echocardiogram done 03/23/2023 showed EF 35-40%, reduced RV systolic function, biatrial enlargement, right greater than left, no significant valve abnormalities. He was diuresed and put on Lasix 40 mg daily. On examination today he does not appear fluid overloaded. He does have his usual chronic shortness of breath with activity. He does have sock markings but no other peripheral edema. Signs and symptoms of heart failure reviewed with him. Discussed low-salt diet, taking meds as directed. Continue metoprolol and valsartan for neurohormonal modulation. (3) CAD (coronary artery disease): Code(s): I25.10 - Atherosclerotic heart disease of [place] coronary artery without angina pectoris Qualifiers: Coronary Disease-Associated Artery/Lesion type: [place] artery [place] vs. transplanted heart: [place] heart Associated angina: without angina Qualified Code(s): I25.10 - Atherosclerotic heart disease of [place] coronary artery without angina pectoris Plan: Known history of CAD. Prior LAD stent and 2 stents in the RCA. No reports of chest discomfort at rest or with activity. He will be having a cardiac catheterization in the near future to evaluate for coronary stenosis for his symptom of shortness of breath. EKG done today showing no acute findings. Continue medical management for CAD. He is not on aspirin as he is now on Eliquis. Continue atorvastatin with ideal LDL goal less than 70. Continue metoprolol. (4) PVCs (premature ventricular contractions): Code(s): I49.3 - Ventricular premature depolarization Plan: Known history of frequent PVCs. Prior PVC ablation which was unsuccessful. Recent Holter monitor done showing only occasional PVCs noted. Continue metoprolol and amiodarone. Will be increasing his metoprolol dose as above (5) Hypertension: Code(s): I10 - Essential (primary) hypertension Qualifiers: Hypertension type: essential hypertension Qualified Code(s): I10 - Essential (primary) hypertension Plan: Running on low side today, asymptomatic. Med adjustment made as above Medications: New amiodarone 200 mg PO DAILY 90 tabs 1RF Changed From apixaban (Eliquis) 5 mg PO BID 60 tabs 0RF To apixaban (Eliquis) 5 mg PO BID 90 days 180 tabs 3RF From furosemide This is a limited Rx as pt. waits for mail away pharmacy order to go into effect. 40 mg PO DAILY 14 tabs 0RF To furosemide 40 mg PO DAILY 90 days 90 tabs 1RF From valsartan This is a limited Rx as pt. waits for mail away pharmacy order to go into effect. 40 mg PO BID 14 tabs 0RF To valsartan 40 mg PO DAILY 90 days 90 tabs 1RF From metoprolol tartrate This is a limited Rx as pt. waits for mail away pharmacy order to go into eff ect. 50 mg PO BID 14 tabs 0RF To metoprolol tartrate take 1.5 tablets twice daily 75 mg (1.5 x 50 mg) PO BID 30 days 90 tabs 3RF Discontinued amiodarone 400mg bid for 2 weeks (04/08/23), then decrease to 200mg daily Discontinued Reason: Doctor's Order 400 mg (2 x 200 mg) PO BID 90 tabs 0RF Coding Level of Care Code Est Pt Level 4 (04450) Diagnoses Atrial fibrillation with RVR I48.91 Acute heart failure I50.9 Coronary artery disease involving [place] coronary artery of [place] heart without angina pectoris I25.10 Coronary Disease-Associated Artery/Lesion type: [place] artery [place] vs. transplanted heart: [place] heart Associated angina: without angina PVCs (premature ventricular contractions) I49.3 Essential hypertension I10 Hypertension type: essential hypertension CPT Codes EKG - CPT: [id number], Complete ([id number]) Time Spent (min) 30
[2023-04-08 14:04] VITALS: BP 100/62; PULSE 100; BMI 29.7
== END 2023-04-08 14:52 | disposition home or self-care (01) ==
PROVIDERS: PCP Internal Medicine; Visit Provider Nurse Practitioner Family
DX: I48.91 Unspecified atrial fibrillation (principal); I50.9 Heart failure, unspecified; I25.10 Atherosclerotic heart disease of native coronary artery without angina pectoris; I49.3 Ventricular premature depolarization; I10 Essential (primary) hypertension
CPT/HCPCS: 93010; 99214

== ENCOUNTER → 2023-04-08 14:02 | Outpatient (BNVA) | payer MEDICARE, OTHER, SELFPAY | PROVIDERS: PCP Internal Medicine; Visit Provider Nurse Practitioner Family | DX: I48.91 Unspecified atrial fibrillation (principal); I11.0 Hypertensive heart disease with heart failure; I50.9 Heart failure, unspecified; I49.3 Ventricular premature depolarization | CPT/HCPCS: 93005; 99212 ==

== ENCOUNTER 2023-04-29 11:43 | Day surgery (SDC) | payer MEDICARE, OTHER, SELFPAY ==
--- NOTE | 2023-04-27 14:34 | HO.ANESPROP2 ---
Documented by User: Sabrina Ross NP 04/27/23 14:40 HPI - Anesthesia Eval Consult details Narrative: 77yo M for Cardioversion Eliquis for afib PMFSH Active Problems Active Problems: All Active Problems (Updated 03/31/23 @ 00:02 by Sunni Moulton) Acute heart failure (Acute) Atrial fibrillation with RVR (Acute) Restrictive lung disease (Acute) Medicare annual wellness visit, subsequent (Acute) Bilateral carotid artery disease (Acute) Carotid stenosis (Acute) JITENDRA on CPAP (Acute) Atrial fibrillation (Acute) Dyspnea on exertion (Acute) Post herpetic neuralgia (Acute) Impacted cerumen of right ear (Acute) COVID-19 virus infection (Acute) Osteoarthritis of right shoulder (Acute) Paronychia (Acute) Adult general medical exam (Acute) Hearing impairment (Acute) Peripheral vascular disease (Acute) Type 2 diabetes mellitus with hyperglycemia (Acute) COPD (chronic obstructive pulmonary disease) (Acute) Hypertension (Acute) Hypercholesterolemia (Acute) Bursitis of right shoulder (Acute) PVCs (premature ventricular contractions) (Acute) CAD (coronary artery disease) (Acute) Past Medical History Medical History Cardiomyopathy Cataracts, bilateral Chronic otitis media Peripheral vascular disease Type 2 diabetes mellitus with hyperglycemia Erectile dysfunction Post herpetic neuralgia COPD (chronic obstructive pulmonary disease) Obstructive sleep apnea Rotator cuff tear, left Carotid stenosis Tubular adenoma of colon Hypertension Hypercholesterolemia PVCs (premature ventricular contractions) NICM (nonischemic cardiomyopathy) CAD (coronary artery disease) Family History Family History Father H/O ETOH abuse Hypertension Mother Hypertension Brother Diabetes Brother No problems noted. Sister No problems noted. Sister No problems noted. Family history of problems with anesthesia: No Surgical History Surgical History History of cardiac radiofrequency ablation History of colonoscopy History of cataract surgery History of repair of rotator cuff History of cardiac catheterization History of tonsillectomy History of carotid endarterectomy History of Problems with Anesthesia: No Social History Social History Housing: House Do you presently have visiting nurse or other home services: No Alcohol intake: current Alcohol intake frequency: does not drink Alcohol type: beer Patient Tobacco Use Status: Never used Tobacco e-Cigarette/Vaping Use: Never Used Second Hand Smoke Exposure: No Advance Directives Date on File: 11/17/21 service: No Current occupational status: employed Cognitive needs: No Hearing needs: Yes Vision needs: Yes Meds Allergies Allergy/AdvReac Type Severity Reaction Status Date / Time lisinopril Allergy Unknown Unknown Verified 04/08/23 14:07 Penicillins [PENICILLINS] Allergy Unknown UNKNOWN Verified 04/08/23 14:07 REACTION-CHILDHOOD ALLERGY Home Medications Medication Instructions Recorded Confirmed Last Taken Type folic acid 400 mcg tablet 0.4 mg PO DAILY 03/12/20 04/29/23 04/29/23 History cholecalciferol (vitamin D3) 25 25 mcg PO DAILY 08/19/21 04/29/23 04/29/23 History mcg (1,000 unit) capsule cyanocobalamin (vitamin B-12) 2,500 mcg PO DAILY 08/19/21 04/29/23 04/29/23 History 2,500 mcg tablet pregabalin 100 mg capsule 100 mg PO TID 09/21/21 04/29/23 04/29/23 History ciclopirox 0.77 % topical cream 1 appl topical BID 03/23/23 04/29/23 04/29/23 History Exam Pertinent Lab Results Pertinent Lab Results: Laboratory Tests 03/27/23 05:37 WBC 9.1 Hgb 12.6 L Hct 39.8 L Plt Count 230 Sodium 144 Potassium 3.7 Chloride 106 Carbon Dioxide 27 BUN 30 H Creatinine 1.52 H Narrative Narrative: EKG 03/2023 atrial fibrillation with 2 PVCs, left axis deviation, right bundle branch block, left anterior fascicular block, can not exclude prior inferior infarct, lateral T-wave abnormality, rate 100, QTC falsely elevated at 508 millisecond ECHO 02/2023 Conclusion: ??? 1. LV systolic function appears moderately reduced LVEF of 35 40% 2. Biatrial enlargement, right greater than left 3. No intracardiac thrombi, masses or vegetations 4. Small PFO detected only with color with detected only during reversal phase next 5. No significant abnormality of cardiac valvular Dopplers 6. Mild atherosclerotic changes noted in the aorta 7. No significant abnormality of the pericardium NM cardiolite stress test 12/2022 IMPRESSION: 1. Myocardial perfusion imaging study shows no evidence of ischemia. Fixed inferior defect which could indicate some combination of nontransmural infarct with diaphragmatic attenuation artifact. 2. Gated LVEF is 46% during stress and 43% during rest. 3. Transient ischemic dilatation not present. EKG component of the test reported separately. Assessment and Plan Assessment Anesthesia Assessment: Chart Reviewed Final Anesthetic Review Family History of Problems with Anesthesia: No History of Problems with Anesthesia: No Documented by User: Nya Gil MD 04/29/23 14:53 HPI - Anesthesia Eval Consult details Narrative: 77yo M for Cardioversion Eliquis for afib. Last dose this morning 04/29/23 PMFSH Active Problems Active Problems: All Active Problems (Updated 04/29/23 @ 14:11 by Nya Gil MD) Acute heart failure (Acute) Atrial fibrillation with RVR (Acute) Restrictive lung disease (Acute) Medicare annual wellness visit, subsequent (Acute) Bilateral carotid artery disease (Acute) Carotid stenosis (Acute) JITENDRA on CPAP (Acute) Atrial fibrillation (Acute) Dyspnea on exertion (Acute) Post herpetic neuralgia (Acute) Impacted cerumen of right ear (Acute) H/o COVID-19 virus infection (Acute) Osteoarthritis of right shoulder (Acute) Paronychia (Acute) Adult general medical exam (Acute) Hearing impairment (Acute) Peripheral vascular disease (Acute) Type 2 diabetes mellitus with hyperglycemia (Acute) COPD (chronic obstructive pulmonary disease) (Acute) Hypertension (Acute) Hypercholesterolemia (Acute) Bursitis of right shoulder (Acute) PVCs (premature ventricular contractions) (Acute) CAD (coronary artery disease) (Acute) H/o cardiac stents- Initially 2 stents and then another 2 stents Past Medical History Medical History Cardiomyopathy Cataracts, bilateral Chronic otitis media Peripheral vascular disease Type 2 diabetes mellitus with hyperglycemia Erectile dysfunction Post herpetic neuralgia COPD (chronic obstructive pulmonary disease) Obstructive sleep apnea Rotator cuff tear, left Carotid stenosis Tubular adenoma of colon Hypertension Hypercholesterolemia PVCs (premature ventricular contractions) NICM (nonischemic cardiomyopathy) CAD (coronary artery disease) Family History Family History Father H/O ETOH abuse Hypertension Mother Hypertension Brother Diabetes Brother No problems noted. Sister No problems noted. Sister No problems noted. Surgical History Surgical History History of cardiac radiofrequency ablation History of colonoscopy History of cataract surgery History of repair of rotator cuff History of cardiac catheterization History of tonsillectomy History of carotid endarterectomy Social History Social History Housing: House Do you presently have visiting nurse or other home services: No Alcohol intake: current Alcohol intake frequency: does not drink Alcohol type: beer Patient Tobacco Use Status: Never used Tobacco e-Cigarette/Vaping Use: Never Used Second Hand Smoke Exposure: No Advance Directives Date on File: 11/17/21 service: No Current occupational status: employed Cognitive needs: No Hearing needs: Yes Vision needs: Yes Meds Allergies Allergy/AdvReac Type Severity Reaction Status Date / Time lisinopril Allergy Unknown Unknown Verified 04/08/23 14:07 Penicillins [PENICILLINS] Allergy Unknown UNKNOWN Verified 04/08/23 14:07 REACTION-CHILDHOOD ALLERGY Home Medications Medication Instructions Recorded Confirmed Last Taken Type folic acid 400 mcg tablet 0.4 mg PO DAILY 03/12/20 04/29/23 04/29/23 History cholecalciferol (vitamin D3) 25 25 mcg PO DAILY 08/19/21 04/29/23 04/29/23 History mcg (1,000 unit) capsule cyanocobalamin (vitamin B-12) 2,500 mcg PO DAILY 08/19/21 04/29/23 04/29/23 History 2,500 mcg tablet pregabalin 100 mg capsule 100 mg PO TID 09/21/21 04/29/23 04/29/23 History ciclopirox 0.77 % topical cream 1 appl topical BID 03/23/23 04/29/23 04/29/23 History Exam Height,Weight and Vital Signs: Height 5 ft 6 in Weight 82.27 kg Vital Signs Temp Pulse Resp BP Pulse Ox O2 Del Method 97.0 F 103 H 16 142/73 H 95 Room Air 04/29/23 13:06 04/29/23 13:06 04/29/23 13:06 04/29/23 13:06 04/29/23 13:06 04/29/23 13:06 Airway Mallampati Class: II TM Dist: >3cm Neck ROM: Limited (Some soreness with extension) Denture: Upper and Lower Heart: Irregularly irregular Lungs: CTAB Assessment and Plan Assessment Anesthesia Assessment: Anesthesia Plan Discussed Final Anesthetic Review NPO: Yes ASA Class: IV Final Preanesthetic Review: No Changes in Pt Med Stat, Meds/Allgs Chart Reviewed, Consent Obtained/Reviewed and Anes Risks/Benef Reviewed
[2023-04-29 12:35] VITALS: BMI 29.3
[2023-04-29 13:06] VITALS: BP 142/73; PULSE 103; RESP 16; TEMP 36.1; O2SAT 95
--- NOTE | 2023-04-29 13:16 | MHC.SHP ---
Pre-Procedural Eval Section A Date of Service: 04/29/23 The patient is an INPATIENT: No Changes since office visit: Yes Patient answered all questions; No Cold of Flu in the past 2 weeks, No New Medical Problems and No Changes in Medication The History & Physical has been completed within 30 days and I have reviewed it.: Yes Section B Chief Complaint: Unspecified atrial fibrillation Allergies: Allergies Allergy/AdvReac Type Severity Reaction Status Date / Time lisinopril Allergy Unknown Unknown Verified 04/08/23 14:07 Penicillins [PENICILLINS] Allergy Unknown UNKNOWN Verified 04/08/23 14:07 REACTION-CHILDHOOD ALLERGY Plan I have reviewed the history and physical and performed a pertinent physical examination on my patient. No changes have occurred unless specified. Time Spent With Patient Time: Total time managing care of this patient today ____ minutes.
[2023-04-29 13:17] LABS: Glucose, Whole Blood 92 mg/dL (60-115)
[2023-04-29] MEDS: Lactated Ringers 1,000 ML 50 ML IVCONT (13:18)
--- NOTE | 2023-04-29 14:35 | ECG_ITS ---
Test Reason : post cardioversion Blood Pressure : / mmHG Vent. Rate : 054 BPM Atrial Rate : 054 BPM P-R Int : 240 ms QRS Dur : 142 ms QT Int : 470 ms P-R-T Axes : 098 -63 -11 degrees QTc Int : 445 ms Sinus bradycardia with 1st degree A-V block with Premature supraventricular complexes Left axis deviation Right bundle branch block Inferior infarct (cited on or before 29-APR-2023) T wave abnormality, consider lateral ischemia Abnormal ECG When compared with ECG of 23-MAR-2023 13:37, Sinus rhythm has replaced Atrial fibrillation Vent. rate has decreased BY 97 BPM Nonspecific T wave abnormality now evident in Inferior leads Referred By: Anjel Gonzalez Electronically Signed By:ANJEL GONZALEZ MD
--- NOTE | 2023-04-29 14:36 | P.PNCAR_ITS ---
Cardioversion Procedure Note Cardioversion Date of Procedure: Today Ordering Provider: Elkin Performing Provider: Myself Indication for Procedure: Persistent atrial fibrillation with heart failure Pre-Op Diagnosis: Same Post-Op Diagnosis: Normal sinus rhythm Performed with Transesophageal Echo: No Consent: Verbal and Written consent was obtained from the patient before starting and aft er confirming oral anticoagulation use. The patient was made aware of the risk of synchronized cardioversion including benefits and alternatives Procedure: After consent obtained, cardioversion pads were attached in anteroposterior configuration and the patient was sedated by the anesthesia team. Once adequate sedation achieved, patient was delivered 200 joules of biphasic synchronized energy in anteroposterior configuration Complications: None Impression: Successful conversion to sinus rhythm Recommendations: 1. Continue amiodarone as well as oral anticoagulation 2. Twelve lead EKG 3. Follow up in the office after Holter monitor
[2023-04-29 14:53] VITALS: BP 90/48; PULSE 53; RESP 15; TEMP 36.6; O2SAT 99
[2023-04-29 14:58] VITALS: BP 104/56; PULSE 53; RESP 18; O2SAT 100
[2023-04-29 15:03] VITALS: BP 107/48; PULSE 53; RESP 20; O2SAT 100
[2023-04-29 15:08] VITALS: BP 123/68; PULSE 50; RESP 20; O2SAT 100
[2023-04-29 15:22] VITALS: BP 126/66; PULSE 72; RESP 20; TEMP 36.1; O2SAT 97
== END 2023-04-29 15:29 | disposition home or self-care (01) ==
PROVIDERS: PCP Internal Medicine; Visit Provider Internal Medicine Cardiovascular Disease
PROC: 5A2204Z Restoration of Cardiac Rhythm, Single (ICD-10-PCS; principal; 2023-04-29 13:30)
DX: I48.19 Other persistent atrial fibrillation (principal); I50.9 Heart failure, unspecified; I11.0 Hypertensive heart disease with heart failure; I25.10 Atherosclerotic heart disease of native coronary artery without angina pectoris; Z95.5 Presence of coronary angioplasty implant and graft; I49.3 Ventricular premature depolarization; E78.5 Hyperlipidemia, unspecified; G47.33 Obstructive sleep apnea (adult) (pediatric); E11.65 Type 2 diabetes mellitus with hyperglycemia; Z79.01 Long term (current) use of anticoagulants; Z79.84 Long term (current) use of oral hypoglycemic drugs; Z79.899 Other long term (current) drug therapy; Z88.0 Allergy status to penicillin; Z88.8 Allergy status to other drugs, medicaments and biological substances
CPT/HCPCS: 82947; 92960; 93005; J2704

== ENCOUNTER → 2023-04-29 11:43 | Outpatient (BNV) | payer MEDICARE, OTHER, SELFPAY | PROVIDERS: PCP Internal Medicine; Visit Provider Internal Medicine Cardiovascular Disease | DX: I48.19 Other persistent atrial fibrillation (principal) | CPT/HCPCS: 92960 ==

== ENCOUNTER 2023-05-25 10:29 | Outpatient (AMB) | payer MEDICARE, OTHER, SELFPAY ==
[2023-05-25 10:34] VITALS: BP 120/60; PULSE 54; BMI 29.4
--- NOTE | 2023-05-25 10:34 | A.OFFVIS_ITS ---
Intake Vital Signs 05/25/23 10:34 Height 5 ft 6 in Weight 182 lb 1.629 oz BMI 29.4 BP 120/60 Blood Pressure Location Rt brachial Position Sitting Pulse 54 Pulse Source Pulse Oximeter Intake Visit Reasons: f/u Intake Note: f/up pt its feeling fine. Operator Specialist Communications Required: No Allergies lisinopril Allergy (Unknown, Verified 04/08/23 14:07) Unknown Penicillins [PENICILLINS] Allergy (Unknown, Verified 04/08/23 14:07) UNKNOWN REACTION-CHILDHOOD ALLERGY Medication List - Last Reconciled 05/25/23 by Reji Jackson MD amiodarone 200 mg PO DAILY apixaban (Eliquis) 5 mg PO BID 30 days atorvastatin 40 mg PO DAILY [AUTO PAP 6-20 cm H2O humidified AIR As directed] cholecalciferol (vitamin D3) 25 mcg PO DAILY ciclopirox 0.77% 1 appl topical BID cyanocobalamin (vitamin B-12) 2,500 mcg PO DAILY empagliflozin (Jardiance) 10 mg PO DAILY fenofibrate 160 mg PO DAILY folic acid 0.4 mg PO DAILY furosemide 40 mg PO DAILY 90 days linagliptin (Tradjenta) 5 mg PO DAILY 30 days metoprolol tartrate 75 mg (1.5 x 50 mg) PO BID 30 days pregabalin 100 mg PO TID valsartan 40 mg PO DAILY 90 days HPI HPI Comments History of Present Illness Details Pleasant 77-year-old gentleman with known coronary artery disease and previous LAD PCI. He also had PVCs in the past and underwent ablation which was unsuccessful. His ejection fraction was low normal but improved after ablation but interestingly he had PVCs at the time his ejection fraction improved. I do not think he had PVC related cardiomyopathy. He returns for follow-up. On last visit he had a lot of PVCs and recently for Holter monitoring which showed 15,000 PVCs. He is saying his more short of breath and has been noticing shortness of breath when he exerts. This is similar to his anginal symptoms before we did LAD PCI. He does have residual coronary disease and has severe right coronary artery stenosis which we did not revascularize and we decided that if he develops symptom which should treat that. After discussion he was taken for RCA PCI. He was treated with 2 drug-eluting stents in the right coronary artery. His dyspnea did not improve after the RCA PCI. He was started on amiodarone to suppress the PVCs to see if that helps his shortness of breath but he continues to be short of breath. He was sent for PFTs which raise concern for restrictive lung disease and underwent CT chest which showed emphysema and some scarring. He has seen pulmonology and will be following up with them. After his PFT abnormality his amiodarone was stopped. His returning for follow-up today and will be going for spinal cord stimulator for back pain. He has been struggling with back pain for long time and had multiple interventional procedures previously without any significant change in his symptoms. His asking whether he can hold aspirin and Plavix. He has some dyspnea but no big changes in his symptoms. No chest discomfort. Mild peripheral edema as before. 12/22/22: He is here for follow-up. He is complaining that he is more short of breath recently. He has gained 10 lb over the last year. Most of this is abdominal obesity. He has been experiencing some breathing problems when he bends forward. He is also experiencing shortness of breath with activities and feels that things are progressing. He has follow-up with pulmonology previou leeroy. No chest discomfort. No symptoms of congestive heart failure. Continues to have back issues and is following with pain management. 02/02/23: Stable at this point. He retur ns for follow-up. On last visit we discussed and he was referred for exercise stress test. He underwent stress Mibi where he was able to exercise for 5 minutes. Nuclear perfusion imaging showed fixed defect in the inferior wall with differentials of diaphragmatic attenuation versus inferior infarct. He continues to get dyspnea on exertion but has slowed down and he is able to function he and can do what he likes to do. No chest discomfort as before. He is saying that lungs are stable. He has back issues which are also stable. 05/25/2023: In February 2023 he got admi tted to [facility] with dysp arcenio and congestive heart failure. He was in new onset atrial fibrillation and by echocardiography his LVEF was 35-40%. He underwent JOSE JUAN cardioversion which was successful but it appears the next day he developed atrial fibrillation again. He was loaded with amiodarone and underwent repeat cardioversion on 04/29/2023. He is here for follow-up after that. He is saying he has been feeling okay. Breathing is at his baseline. No palpitations at any stage. Taking medications regularly. His only complaint is that he gets dizziness off and on while changing his posture. He has been drinking water and some Gatorade. I have advised him to be careful with Gatorade use. [facility] Medical History Cardiomyopathy Cataracts, bilateral Chronic otitis media Peripheral vascular disease Type 2 diabetes mellitus with hyperglycemia Erectile dysfunction Post herpetic neuralgia COPD (chronic obstructive pulmonary disease) Obstructive sleep apnea Rotator cuff tear, left Carotid stenosis Tubular adenoma of colon Hypertension Hypercholesterolemia PVCs (premature ventricular contractions) NICM (nonischemic cardiomyopathy) CAD (coronary artery disease) Surgical History History of cardiac radiofrequency ablation History of colonoscopy History of cataract surgery History of repair of rotator cuff History of cardiac catheterization History of tonsillectomy History of carotid endarterectomy Family History Father H/O ETOH abuse Hypertension Mother Hypertension Brother Diabetes Brother No problems noted. Sister No problems noted. Sister No problems noted. Social History Housing: House Do you presently have visiting nurse or other home services: No Alcohol intake: current Alcohol intake frequency: does not drink Alcohol type: beer Comment: no instruments used Patient Tobacco Use Status: Never used Tobacco e-Cigarette/Vaping Use: Never Used Second Hand Smoke Exposure: No Advance Directives Date on File: 11/17/21 service: No Current occupational status: employed Cognitive needs: No Hearing needs: Yes Vision needs: Yes Review of Systems Const Reports chills, Reports fatigue, Reports fever(s), Reports frequent falls, Reports weakness, Reports weight gain and Reports weight loss ENT Reports dizziness Card Reports chest pain, Reports leg edema, Reports lightheadedness, Reports palpitations, Reports dyspnea and Reports dyspnea on exertion Resp Reports cough, Reports dyspnea and Reports dyspnea on exertion GI Reports hematochezia Musc Reports abnormal gait, Reports muscle weakness, Reports numbness, Reports radiating pain into limb and Reports tingling Neuro Reports abnormal gait, Reports dizziness, Reports frequent falls, Reports numbness, Reports tingling and Reports weakness Endo Reports fatigue and Reports palpitations Physical Exam GENERAL APPEARANCE: in no acute distress, well developed, well nourished. NECK/THYROID: no carotid bruit, no jugular venous distention. HEART: no murmurs, regular rate and rhythm, S1, S2 normal. LUNGS: Crackles at bases. ABDOMEN: normal, bowel sounds present, soft, nontender, nondistended. EXTREMITIES: no clubbing, cyanosis. Mild edema. PERIPHERAL PULSES: equal. NEUROLOGIC: nonfocal, alert and oriented. Assessment & Plan Assessment & Plan (1) Acute heart failure: Code(s): I50.9 - Heart failure, unspecified (2) PAF (paroxysmal atrial fibrillation): Code(s): I48.0 - Paroxysmal atrial fibrillation Plan 77-year-old gentleman here for follow-up. He had acute heart failure in February 2023 and was admitted to [facility] with atrial fibrillation with rapid ventricular response. He was taken for JOSE JUAN cardioversion which was successfully done but unfortunately developed atrial fibrillation again. He was loaded with amiodarone and underwent cardioversion again in April which was successful. He continues to be in sinus rhythm by examination today. He will be doing a Holter monitor. He is complaining of dizziness. I have advised him to decrease the Lasix to 20 mg once a day. I have advised him to keep himself well hydrated. If he continues to get dizzy spells then would consider decreasing his antihypertensive medications. He is denying any urinary complaints currently and can continue that Jardiance. He is saying that he has noticed that he has been urinating more frequently. We will do limited echocardiography in June and see him after that. Thank you for allowing me to participate in the care of your patient. Please feel free to contact me if you have any questions. Orders: Orders CA echo limited 2 Months I50.9 - Heart failure, unspecified Coding Level of Care Code Est Pt Level 4 (22051) Diagnoses Acute heart failure I50.9 PAF (paroxysmal atrial fibrillation) I48.0
== END 2023-05-25 10:57 | disposition home or self-care (01) ==
PROVIDERS: PCP Internal Medicine; Visit Provider Internal Medicine Cardiovascular Disease
DX: I48.0 Paroxysmal atrial fibrillation (principal)
CPT/HCPCS: 93244; 99214

== ENCOUNTER → 2023-05-25 11:07 | Outpatient (REF) | payer MEDICARE, OTHER, SELFPAY ==
--- NOTE | 2023-05-25 11:10 | HM_ITS ---
Conclusion: 1. Patient was monitored for total period of 2 days and 23 hours 2. Baseline rhythm is atrial fibrillation with average heart of 51 beats per minute with frequent slow ventricular response, 70% of time heart rate below 60 beats per minute 3. No significant pauses noted 4. Occasional PVCs noted 5. Patient reported 3 events of dizziness that correlated with baseline atrial fibrillation with no significant pauses MTDD
== END ==
LOC: HO.CARD 11:07
PROVIDERS: PCP Internal Medicine; Visit Provider Internal Medicine Cardiovascular Disease
DX: I48.91 Unspecified atrial fibrillation (principal); R06.00 Dyspnea, unspecified
CPT/HCPCS: 93242; 99212

== ENCOUNTER 2023-05-25 11:38 | Outpatient (REF) | payer SELFPAY | END 2023-05-25 11:39 | disposition home or self-care (01) | LOC: HO.HAP 11:38 | PROVIDERS: Visit Provider Internal Medicine | DX: Z46.1 Encounter for fitting and adjustment of hearing aid (principal); H69.93 Unspecified Eustachian tube disorder, bilateral | CPT/HCPCS: V5267 ==

== ENCOUNTER 2023-05-27 08:18 | Outpatient (REF) | payer SELFPAY ==
--- NOTE | 2023-05-27 15:06 | MHC.AU.HA3 ---
Hearing Instrument Follow-Up- Binaural Date of Visit: 05/27/23 Right Ear: Alfredo, Model, Color, Serial Number: Neno Goldman [id number] SN: [id number] Color: Jonniee Group Rooms Coordinator Repair Warranty: 06/13/2024 Group Rooms Coordinator Loss and Damage Warranty: 06/13/2024 [facility] Service Plan: Battery Size: 13 Sales And Marketing Representative/Slim Tube: #1 Power Earmold/Dome/CShell/SlimTip:Phonak Canal Lock C-Shell # [id number] warranty 07/15/2021 Type of Wax Guard: CeruStop Dispensed By: [facility] Date of Fittin03/20/2021 Left Ear: Alfredo, Model, Color, Serial Number: Neno Goldman [id number] SN: [id number] Color: Jonniee Group Rooms Coordinator Repair Warranty: 06/13/2024 Group Rooms Coordinator Loss and Damage Warranty: 06/13/2024 [facility] Service Plan: Battery Size: 13 Sales And Marketing Representative/Slim Tube: #1 Power Earmold/Dome/CShell/SlimTip: [employer]onak Canal Lock C-Shell #[id number] Warranty 04/12/2022 Type of Wax Guard: CeruStop Dispensed By: [facility] Date of Fittin03/20/2021 Follow-Up Summary: Reports wax guard not staying in c-shells, worse left. Otoscopy reveals two wax guards near aperture of canal As, removed with lighted curette without incident. Otoscopy reveals non occluding cerumen Ad, no wax guards seen in the right ear. Cleaned and checked aids and molds, listening check positive. Left c-shell gasket does not retain wax guard. Right seems to be holding wax guard fine. Left C-shell is out of warranty, Phonak recommend ordering a replacement C-shell. Called patient to discuss cost, quoted $185, he wishes to proceed with ordering new mold. Recommendations: Recommendations: Patient will be contacted when materials have arrived. Diagnosis Code(s): Primary Diagnosis: H90.6 Mixed Hearing Loss, Bilateral Secondary Diagnosis: H69.93 Unspecified Eustachian Tube Dysfunction, Bilateral Signature: Provider: Sahil Brown, [facility]
== END 2023-05-27 08:19 | disposition home or self-care (01) ==
LOC: HO.HAP 08:18
PROVIDERS: Visit Provider Internal Medicine
DX: Z13.89 Encounter for screening for other disorder (principal)

== ENCOUNTER 2023-05-27 15:27 | Outpatient (AMB) | payer MEDICARE, OTHER, SELFPAY ==
--- NOTE | 2023-05-27 15:32 | A.OFFPC_ITS ---
Vital Signs 05/27/23 15:33 Height 5 ft 6 in Weight 187 lb 6 oz BMI 30.2 BP 122/64 Blood Pressure Location Lt brachial Position Sitting Pulse 49 L Pulse Source Pulse Oximeter Pulse Oximetry (%) 93 Oxygen Delivery Method Room Air Intake Visit Reasons: DM Intake Note: Patient is here to follow up on DM. Automotive Glass Specialist Required: No Marine Painter: Not Required per policy Accompanied by: Self / Same As Patient Allergies lisinopril Allergy (Unknown, Verified 05/27/23 15:33) Unknown Penicillins [PENICILLINS] Allergy (Unknown, Verified 05/27/23 15:33) UNKNOWN REACTION-CHILDHOOD ALLERGY Tobacco use date assessed: 05/27/23 Fall risk assessment: No Falls in past year Last assessed Fall Risk: 05/27/23 Dental Screening Dental Screen Date: 05/27/23 Did you have a dental visit in the last 12 months?: No Did you have a dental problem in the last 6 months where you did not have access to dental care?: No Was dental information given to patient?: No (Dentures) HPI DM HPI Details 77-year-old obese male with atrial fibri llation diabetes mellitus hypertension hypercholesterolemia coronary artery disease and congestive heart failure last seen in February 2023. Colonoscopy in all done. Patient has seen Cardiology 05/25/2023 coronary artery disease with LAD PCI has gone for ablation history unsuccessful patient does have severe right coronary artery stenosis which was not revascularized after that has had a PCI 2 drug-eluting stents in the right coronary artery amiodarone started CT of the chest showing COPD emphysema patient has chronic low back pain also and will be going for spinal cord stimulator. April 2023 admission for shortness of breath and congestive heart failure new onset atrial fibrillation left ventricular ejection fraction of 35-40% underwent JOSE JUAN cardioversion but went back to atrial fibrillation placed on amiodarone and repeat cardioversion April 2023. complains of dizzy spell , no syncope. . dizzy , anemia PFSH Medical History Cardiomyopathy Cataracts, bilateral Chronic otitis media Peripheral vascular disease Type 2 diabetes mellitus with hyperglycemia Erectile dysfunction Post herpetic neuralgia COPD (chronic obstructive pulmonary disease) Obstructive sleep apnea Rotator cuff tear, left Carotid stenosis Tubular adenoma of colon Hypertension Hypercholesterolemia PVCs (premature ventricular contractions) NICM (nonischemic cardiomyopathy) CAD (coronary artery disease) Surgical History History of cardiac radiofrequency ablation History of colonoscopy History of cataract surgery History of repair of rotator cuff History of cardiac catheterization History of tonsillectomy History of carotid endarterectomy Family History Father H/O ETOH abuse Hypertension Mother Hypertension Brother Diabetes Brother No problems noted. Sister No problems noted. Sister No problems noted. Social History Housing: House Do you presently have visiting nurse or other home services: No Alcohol intake: current Alcohol intake frequency: does not drink Alcohol type: beer Comment: no instruments used Patient Tobacco Use Status: Never used Tobacco e-Cigarette/Vaping Use: Never Used Second Hand Smoke Exposure: No Advance Directives Date on File: 11/17/21 service: No Current occupational status: employed Cognitive needs: No Hearing needs: Yes Vision needs: Yes Questionnaire Thrive Questionnaire Date Thrive assessed: 03/24/23 RENETTA-7 AMB Questionnaire RENETTA-7 Date RENETTA - 7 assessed: 06/11/22 Source: Developed by Drs. Marcos Phan, Holley Encinas, Tk Car and colleagues, with an educational deonte from [employer]. Physical exam (Primary Care) Vital Signs: Last Vital Signs Pulse 49 L 05/27/23 15:33 BP 122/64 05/27/23 15:33 Pulse Ox 93 05/27/23 15:33 Oxygen Delivery Method Room Air 05/27/23 15:33 BMI result Body Mass Index 30.2 Tobacco/Smoking Status: Tobacco use Status Tobacco use date assessed 05/27/23 05/27/23 15:43 Patient Tobacco Use Status Never used Tobacco 05/27/23 15:43 e-Cigarette/Vaping Use Never Used 05/27/23 15:43 Thrive Assessment: Date of Thrive Assessment Date Thrive assessed 03/24/23 05/27/23 15:43 Const General: alert; No acute distress Eyes Conjunctivae: conjunctivae normal Resp Auscultation: clear to auscultation bilaterally Cardio Rate: regular rate Rhythm: regular rhythm GI Inspection: Yes normal to inspection Extrem General: Yes normal to inspection and No edema Results AMB Hemoglobin A1c AMB Hemoglobin A1c 7.8 % Last Edit by SHELLEY Grimes on 05/27/23 15:51 Assessment and Plan Assessment & Plan (1) Type 2 diabetes mellitus with hyperglycemia: Comment: Dr. Hawthorne Code(s): E11.65 - Type 2 diabetes mellitus with hyperglycemia Qualifiers: Diabetes mellitus ocean transportation intermediary insulin use: without ocean transportation intermediary use Qualified Code(s): E11.65 - Type 2 diabetes mellitus with hyperglycemia Plan: Decrease the amount of carbohydrate intake, pasta, bread, rice and potatoes are all sugar and that is aside from all the sweet stuff, remember that fruits are good but they are Sweet also. Hemoglobin A1c goal of less than 7.0 patient is taking Tradjenta Jardiance (2) COPD (chronic obstructive pulmonary disease): Comment: PATIENT HAS ONLY BORDERLINE OBSTRUCTIVE AIRWAY DISORDER AND REALLY DOES NOT REQUIRED TO USE ANY BRONCHODILATOR INHALERS. Code(s): J44.9 - Chronic obstructive pulmonary disease, unspecified Qualifiers: COPD type: emphysema Emphysema type: unspecified Qualified Code(s): J43.9 - Emphysema, unspecified Plan: Continue to monitor stable (3) Hypertension: Code(s): I10 - Essential (primary) hypertension Qualifiers: Hypertension type: essential hypertension Qualified Code(s): I10 - Essential (primary) hypertension Plan: Continue with blood pressure medication. Decrease salt intake and exercise patient takes valsartan 40 mg once a day metoprolol 75 mg twice a day. (4) Hypercholesterolemia: Code(s): E78.00 - Pure hypercholesterolemia, unspecified Plan: Avoid fried foods, chicken skin, eggs, butter margarine, pastries and meat. Be it pork or beef they have a lot of cholesterol LDL goal of less than 70 and triglyceride of less than 150. Patient on atorvastatin 40 mg once a day and fenofibrate 160 mg once a day (5) CAD (coronary artery disease): Code(s): I25.10 - Atherosclerotic heart disease of [place] coronary artery without angina pectoris Qualifiers: Coronary Disease-Associated Artery/Lesion type: [place] artery [place] vs. transplanted heart: [place] heart Associated angina: without angina Qualified Code(s): I25.10 - Atherosclerotic heart disease of [place] coronary artery without angina pectoris Plan: Control the cholesterol, weight, blood pressure, diabetes on Eliquis (6) JITENDRA on CPAP: Comment: Known case of obstructive sleep apnea since 2017. Has been using CPAP very regularly all this time. REMAINS VERY COMPLIANT, OLD CPAP DEVICE WAS NOT CAPABLE OF TRANSMITTING THE COMPLIANCE DATA. HE HAS THE NEW CPAP MACHINE AND ADVISED TO START USING IT REGULARLY, WE SHOULD BE ABLE TO DOWNLOAD HIS COMPLIANCE IS WITH THIS NEW CPAP. Code(s): G47.33 - Obstructive sleep apnea (adult) (pediatric); Z99.89 - Dependence on other enabling machines and devices Plan: Continue to use the CPAP more than 4 hours a night and benefits from this (7) PAF (paroxysmal atrial fibrillation): Comment: Status post cardioversion Code(s): I48.0 - Paroxysmal atrial fibrillation Plan: Status post Cardioversion twice on anticoagulation placed on amiodarone (8) Congestive heart failure: Comment: Preserved ejection fraction Code(s): I50.9 - Heart failure, unspecified Plan: Continue with diuretics Orders: Orders Complete Blood Count Auto Diff 2 Months I25.10 - Atherosclerotic heart disease of [place] coronary artery without angina pectoris B Type Natriuretic Peptide 2 Months I25.10 - Atherosclerotic heart disease of [place] coronary artery without angina pectoris Comprehensive Met. Panel 2 Months I25.10 - Atherosclerotic heart disease of [place] coronary artery without angina pectoris Free T4 (Free Thyroxine) 2 Months I25.10 - Atherosclerotic heart disease of [place] coronary artery without angina pectoris AMB Hemoglobin A1c Today E11.65 - Type 2 diabetes mellitus with hyperglycemia Thyroid Stimulating Hormone 2 Months I25.10 - Atherosclerotic heart disease of [place] coronary artery without angina pectoris Lipid Panel 2 Months E78.00 - Pure hypercholesterolemia, unspecified, I25.10 - Atherosclerotic heart disease of [place] coronary artery without angina pectoris Coding Level of Care Code Est Pt Level 4 (16353) Diagnoses Type 2 diabetes mellitus with hyperglycemia, without long-term current use of insulin E11.65 Diabetes mellitus skilled nursing insulin use: without skilled nursing use Pulmonary emphysema, unspecified emphysema type J43.9 COPD type: emphysema Emphysema type: unspecified Essential hypertension I10 Hypertension type: essential hypertension Hypercholesterolemia E78.00 Coronary artery disease involving [place] coronary artery of [place] heart without angina pectoris I25.10 Coronary Disease-Associated Artery/Lesion type: [place] artery [place] vs. transplanted heart: [place] heart Associated angina: without angina JITENDRA on CPAP G47.33; Z99.89 PAF (paroxysmal atrial fibrillation) I48.0 Congestive heart failure I50.9
[2023-05-27 15:33] VITALS: BP 122/64; PULSE 49; O2SAT 93; BMI 30.2
== END 2023-05-27 16:15 | disposition home or self-care (01) ==
PROVIDERS: PCP Internal Medicine; Visit Provider Internal Medicine
DX: E11.65 Type 2 diabetes mellitus with hyperglycemia (principal); J43.9 Emphysema, unspecified; I11.0 Hypertensive heart disease with heart failure; I50.9 Heart failure, unspecified; E78.00 Pure hypercholesterolemia, unspecified; I25.10 Atherosclerotic heart disease of native coronary artery without angina pectoris; G47.33 Obstructive sleep apnea (adult) (pediatric); Z99.89 Dependence on other enabling machines and devices
CPT/HCPCS: 83036; 99214

== ENCOUNTER 2023-06-06 09:36 | Outpatient (AMB) | payer MEDICARE, SELFPAY ==
[2023-06-06 09:44] VITALS: BP 100/62; PULSE 42; BMI 30.2
--- NOTE | 2023-06-06 09:44 | MHC.OFFVIS ---
Intake Vital Signs 06/06/23 09:44 Height 5 ft 6 in Weight 187 lb 6.287 oz BMI 30.2 BP 100/62 Blood Pressure Location Lt brachial Position Sitting Pulse 42 L Pulse Source Monitor Intake Visit Reasons: f/up Custodial Supervisor Required: No Allergies lisinopril Allergy (Unknown, Verified 06/06/23 09:46) Unknown Penicillins [PENICILLINS] Allergy (Unknown, Verified 06/06/23 09:46) UNKNOWN REACTION-CHILDHOOD ALLERGY Medication List - Last Reconciled 06/06/23 by SALOMON Grubbs amiodarone 200 mg PO DAILY apixaban (Eliquis) 5 mg PO BID 30 days atorvastatin 40 mg PO DAILY [AUTO PAP 6-20 cm H2O humidified AIR As directed] cholecalciferol (vitamin D3) 25 mcg PO DAILY ciclopirox 0.77% 1 appl topical BID cyanocobalamin (vitamin B-12) 2,500 mcg PO DAILY empagliflozin (Jardiance) 10 mg PO DAILY fenofibrate 160 mg PO DAILY folic acid 0.4 mg PO DAILY furosemide 40 mg PO DAILY 90 days linagliptin (Tradjenta) 5 mg PO DAILY 30 days metoprolol tartrate 75 mg (1.5 x 50 mg) PO BID 30 days pregabalin 100 mg PO TID valsartan 40 mg PO DAILY 90 days HPI f/up HPI Details Deondre is a 77-year-old male with past medical history of hypertension, hyperlipidemia, diabetes, obstructive sleep apnea with CPAP use, carotid stenosis, peripheral vascular disease, frequent PVCs, coronary artery disease with stents in the LAD and RCA who was recently admitted to [facility] with increased shortness of breath and found to have new onset atrial fibrillation and congestive heart failure. He was diuresed and put on daily Lasix. He did undergo a JOSE JUAN cardioversion and was started on anticoagulation. He had recurrent AFib and was put on amiodarone loading dose then underwent outpatient cardioversion. Outpatient Holter monitor was completed and he now presents for follow-up. Today he reports that he has been noticing some dizziness especially during activities. He has not had any presyncope, syncope, falls. No chest discomfort at rest or with activity. No heart palpitations, shortness of breath, PND, orthopnea or edema. Taking all meds as directed. No bleeding issues reported. [facility] Medical History Cardiomyopathy Cataracts, bilateral Chronic otitis media Peripheral vascular disease Type 2 diabetes mellitus with hyperglycemia Erectile dysfunction Post herpetic neuralgia COPD (chronic obstructive pulmonary disease) Obstructive sleep apnea Rotator cuff tear, left Carotid stenosis Tubular adenoma of colon Hypertension Hypercholesterolemia PVCs (premature ventricular contractions) NICM (nonischemic cardiomyopathy) CAD (coronary artery disease) Surgical History History of cardiac radiofrequency ablation History of colonoscopy History of cataract surgery History of repair of rotator cuff History of cardiac catheterization History of tonsillectomy History of carotid endarterectomy Family History Father H/O ETOH abuse Hypertension Mother Hypertension Brother Diabetes Brother No problems noted. Sister No problems noted. Sister No problems noted. Social History Housing: House Do you presently have visiting nurse or other home services: No Alcohol intake: current Alcohol intake frequency: does not drink Alcohol type: beer Comment: no instruments used Patient Tobacco Use Status: Never used Tobacco e-Cigarette/Vaping Use: Never Used Second Hand Smoke Exposure: No Advance Directives Date on File: 11/17/21 service: No Current occupational status: employed Cognitive needs: No Hearing needs: Yes Vision needs: Yes Review of Systems Const All systems reviewed & are unremarkable except as noted in HPI and below ENT Reports dizziness Card Denies chest pain, Denies chest pain at rest, Denies chest pain with activity, Denies rapid heart rate, Denies pedal edema, Denies edema, Denies leg edema, Reports lightheadedness, Denies palpitations, Denies dyspnea, Denies dyspnea on exertion and Denies orthopnea Resp Denies cough, Denies dyspnea and Denies dyspnea on exertion GI Denies hematochezia and Denies change in stool character Musc Details: residual shingle pains Denies abnormal gait, Denies limited range of motion, Denies muscle cramps, Denies muscle weakness, Denies numbness, Denies radiating pain into limb, Denies stiffness and Denies tingling Neuro Denies abnormal gait, Reports dizziness, Denies numbness and Denies tingling Endo Denies palpitations Physical Exam Vital Signs: Last Vital Signs Pulse 42 L 06/06/23 09:44 BP 100/62 06/06/23 09:44 BMI result Body Mass Index 30.2 Const General: cooperative, healthy appearing, comfortable and no acute distress Orientation/consciousness: patient oriented x3 Neck Neck: Yes normal visual inspection Resp Effort & Inspection: normal respiratory effort Auscultation: clear to auscultation bilaterally, no rales, no rhonchi and no wheezes Cardio Jugular venous distension: no JVD Rate: regular rate Rhythm: regular rhythm Heart sounds: S1 normal heart sound present, S2 normal heart sound present, no murmurs and no rubs Neuro General: patient oriented x3 Extrem General: Yes normal to inspection Psych Appearance: grossly normal Mental Status: mental status grossly normal Speech and movement: Normal speech and movement present Office Procedures EKG Details: Today, read by me, marked sinus bradycardia, first-degree AV block, left axis deviation, right bundle branch block, rate 42, QTC 407 millisecond [id number], Complete Assessment & Plan Assessment & Plan (1) PAF (paroxysmal atrial fibrillation): Comment: Status post cardioversion Code(s): I48.0 - Paroxysmal atrial fibrillation Plan: Newer finding of paroxysmal atrial fibrillation with heart failure and reduced EF. He did undergo a JOSE JUAN cardioversion 03/25/2023 then had recurrent AFib. Echo had shown EF was 35-40%. He was loaded with amiodarone then underwent a outpatient cardioversion on 04/29/2023. Holter monitor done on 05/25/2023 for 3 days shows atrial fibrillation with average heart rate 51, 70% of the time heart rate less than 60, occasional PVCs, symptoms of dizziness correlated with atrial fibrillation, no significant pause. EKG done in the office today showing marked sinus bradycardia, first-degree AV block, right bundle branch block, rate 42. Patient does report feeling lightheaded at times, especially with activities. No presyncope, syncope, falls. Blood pressure on low side 100/62. He is currently on metoprolol tartrate 100 mg b.i.d. as well as amiodarone 200 mg daily. Will have him reduce metoprolol down to 25 mg b.i.d.. Office EKG in 2 weeks to reassess rate and rhythm. Plan to adjust metoprolol as needed following that result. Continue on Eliquis 5 mg b.i.d.. No bleeding issues. (2) CAD (coronary artery disease): Code(s): I25.10 - Atherosclerotic heart disease of [place] coronary artery without angina pectoris Qualifiers: Coronary Disease-Associated Artery/Lesion type: [place] artery [place] vs. transplanted heart: [place] heart Associated angina: without angina Qualified Code(s): I25.10 - Atherosclerotic heart disease of [place] coronary artery without angina pectoris Plan: Known history of CAD. Prior LAD stent and 2 stents in the RCA. No reports of chest discomfort at rest or with activity. He previously was going to undergo a cardiac catheterization to evaluate for coronary stenosis for his symptom of shortness of breath. He then had problems with atrial fibrillation. At this time he is not reporting concerning shortness of breath. EKG done today showing no acute findings. Continue medical management for CAD. He is not on aspirin as he is now on Eliquis. Continue atorvastatin with ideal LDL goal less than 70. Continue metoprolol at reduced dose. (3) Bradycardia: Code(s): R00.1 - Bradycardia, unspecified Plan: Noted on EKG today. Symptoms of lightheadedness may be related to this finding. Reducing metoprolol. (4) Congestive heart failure: Comment: Preserved ejection fraction Code(s): I50.9 - Heart failure, unspecified Plan: No clinical signs of decompensated heart failure on examination today. EF reduced on last echo. Will plan for limited echo prior to his next visit. (5) JITENDRA on CPAP: Comment: Known case of obstructive sleep apnea since 2017. Has been using CPAP very regularly all this time. REMAINS VERY COMPLIANT, OLD CPAP DEVICE WAS NOT CAPABLE OF TRANSMITTING THE COMPLIANCE DATA. HE HAS THE NEW CPAP MACHINE AND ADVISED TO START USING IT REGULARLY, WE SHOULD BE ABLE TO DOWNLOAD HIS COMPLIANCE IS WITH THIS NEW CPAP. Code(s): G47.33 - Obstructive sleep apnea (adult) (pediatric); Z99.89 - Dependence on other enabling machines and devices Plan: Compliant (6) Hypertension: Code(s): I10 - Essential (primary) hypertension Qualifiers: Hypertension type: essential hypertension Qualified Code(s): I10 - Essential (primary) hypertension Plan: Running on low side today, asymptomatic. Med adjustment made as above (7) Hypercholesterolemia: Code(s): E78.00 - Pure hypercholesterolemia, unspecified Plan: [place] LDL goal less than 70. Labs done on 02/28/2023 showed LDL 82. Patient already has joint discomfort from osteoarthritis. Also post herpetic neuralgia. Will add Zetia 10 mg daily to improve cholesterol readings. (8) Acute heart failure: Code(s): I50.9 - Heart failure, unspecified Plan: Evidence of heart failure on last admission in setting of AFib RVR, February 2023. Echocardiogram done 03/23/2023 showed EF 35-40%, reduced RV systolic function, biatrial enlargement, right greater than left, no significant valve abnormalities. He was diuresed and put on Lasix 40 mg daily. On follow-up visit his dose was reduced down to 20 mg daily. On examination today he does not appear fluid overloaded. Signs and symptoms of heart failure reviewed with him. Discussed low-salt diet, taking meds as directed. Continue metoprolol and valsartan for neurohormonal modulation. (9) PVCs (premature ventricular contractions): Code(s): I49.3 - Ventricular premature depolarization Plan: Known history of frequent PVCs. Prior PVC ablation which was unsuccessful. Recent Holter monitor done showing only occasional PVCs noted. Continue metoprolol and amiodarone. Plan Time spent on chart review, documentation, interview and assessment Medications: New ezetimibe (Zetia) New cholesterol lower medication -take in addition to your atorvastatin Take 1 tablet daily 10 mg PO DAILY 30 tabs 5RF furosemide (Lasix) Water pill 1 tablet daily 20 mg PO DAILY 90 tabs 3RF Changed From metoprolol tartrate take 1.5 tablets twice daily 75 mg (1.5 x 50 mg) PO BID 30 days 90 tabs 3RF To metoprolol tartrate take 0.5 tablet daily ( dose not need refill at this time) - dose just reduced 25 mg (1/2 x 50 mg) PO BID 30 days 30 tabs 3RF Discontinued furosemide Discontinued Reason: Doctor's Order 40 mg PO DAILY 90 tabs 1RF 90 days Coding Level of Care Code Est Pt Level 4 (43668) Diagnoses PAF (paroxysmal atrial fibrillation) I48.0 Coronary artery disease involving [place] coronary artery of [place] heart without angina pectoris I25.10 Coronary Disease-Associated Artery/Lesion type: [place] artery [place] vs. transplanted heart: [place] heart Associated angina: without angina Bradycardia R00.1 Congestive heart failure I50.9 JITENDRA on CPAP G47.33; Z99.89 Essential hypertension I10 Hypertension type: essential hypertension Hypercholesterolemia E78.00 Acute heart failure I50.9 PVCs (premature ventricular contractions) I49.3 CPT Codes EKG - CPT: [id number], Complete ([id number]) Time Spent (min) 28
== END 2023-06-06 10:29 | disposition home or self-care (01) ==
PROVIDERS: PCP Internal Medicine; Visit Provider Nurse Practitioner Family
DX: I48.0 Paroxysmal atrial fibrillation (principal); I25.10 Atherosclerotic heart disease of native coronary artery without angina pectoris; R00.1 Bradycardia, unspecified; I50.9 Heart failure, unspecified; G47.33 Obstructive sleep apnea (adult) (pediatric); Z99.89 Dependence on other enabling machines and devices; I10 Essential (primary) hypertension; E78.00 Pure hypercholesterolemia, unspecified; I49.3 Ventricular premature depolarization
CPT/HCPCS: 93010; 99214

== ENCOUNTER → 2023-06-06 09:36 | Outpatient (BNVA) | payer MEDICARE, SELFPAY | PROVIDERS: PCP Internal Medicine; Visit Provider Nurse Practitioner Family | DX: I48.0 Paroxysmal atrial fibrillation (principal); I11.0 Hypertensive heart disease with heart failure; I50.20 Unspecified systolic (congestive) heart failure; I25.10 Atherosclerotic heart disease of native coronary artery without angina pectoris; E78.00 Pure hypercholesterolemia, unspecified; I49.3 Ventricular premature depolarization; G47.33 Obstructive sleep apnea (adult) (pediatric); Z79.01 Long term (current) use of anticoagulants; Z79.899 Other long term (current) drug therapy; Z99.89 Dependence on other enabling machines and devices | CPT/HCPCS: 93005; 99212 ==

== ENCOUNTER 2023-06-13 14:59 | Outpatient (REF) | payer SELFPAY ==
--- NOTE | 2023-06-13 15:36 | MHC.AU.HA3 ---
Hearing Instrument Follow-Up- Binaural Date of Visit: 06/13/23 Right Ear: Make, Model, Color, Serial Number: Neno Goldman [id number] SN: [id number] Color: Michaelagne Wafer Line Worker Repair Warranty: 06/13/2024 Wafer Line Worker Loss and Damage Warranty: 06/13/2024 Battery Size: 13 Technical Product Manager/Slim Tube: 1P Earmold/Dome/CShell/SlimTip:Phonak Canal Lock C-Shell SN: [id number] Colette: 07/15/2021 Type of Wax Guard: CeruStop Dispensed By: [facility] Date of Fittin03/20/2021 Left Ear: Make, Model, Color, Serial Number: Neno Goldman [id number] SN: [id number] Color: Michaelagne Wafer Line Worker Repair Warranty: 06/13/2024 Wafer Line Worker Loss and Damage Warranty: 06/13/2024 Battery Size: 13 Technical Product Manager/Slim Tube: 1P Earmold/Dome/CShell/SlimTip: Phonak Canal Lock C-Shell SN: [id number] Colette: 11/30/2023 OLD SN: [id number] Colette: 04/12/2022 Type of Wax Guard: CeruStop Dispensed By: [facility] Date of Fittin03/20/2021 Follow-Up Summary: Fit new left c-shell. Comfortable and no feedback in office. New left c-shell color is pink shell with transparent faceplate, old c-shell is fully transparent. Deondre commented on this difference; however, he is reportedly not concerned by the difference. Advised of warranty period and if issues with fit, comfort, or feedback arise, to schedule an appointment prior to warranty period ending. Deondre has his old c-shell to keep as back up. Recommendations: Hearing instrument follow-up or maintenance as needed. Please contact our clinic with any questions or concerns. Diagnosis Code(s): Primary Diagnosis: H90.6 Mixed Hearing Loss, Bilateral Signature: Provider: Sahil Link, [facility]
== END 2023-06-13 15:00 | disposition home or self-care (01) ==
LOC: HO.HAP 14:59
PROVIDERS: Visit Provider Internal Medicine
DX: Z46.1 Encounter for fitting and adjustment of hearing aid (principal); H90.6 Mixed conductive and sensorineural hearing loss, bilateral
CPT/HCPCS: 92700; V5264

== ENCOUNTER 2023-07-04 13:49 | Outpatient (AMB) | payer MEDICARE, SELFPAY ==
--- NOTE | 2023-07-04 14:02 | MHC.OFFVIS ---
Intake Vital Signs 07/04/23 14:03 Height 5 ft 6 in Weight 187 lb 6.287 oz BMI 30.2 BP 110/52 L Blood Pressure Location Lt brachial Position Sitting Pulse 54 Pulse Source Pulse Oximeter Pulse Oximetry (%) 95 Oxygen Delivery Method Room Air Intake Visit Reasons: RLD Intake Note: pt is here for follow up and is now dx with a-fib, breathing is stable Customer Support Specialist Required: No Allergies lisinopril Allergy (Unknown, Verified 07/04/23 14:28) Unknown Penicillins [PENICILLINS] Allergy (Unknown, Verified 07/04/23 14:28) UNKNOWN REACTION-CHILDHOOD ALLERGY Medication List - Last Reconciled 07/04/23 by Leelee Willis MD amiodarone 200 mg PO DAILY apixaban (Eliquis) 5 mg PO BID 30 days atorvastatin 40 mg PO DAILY [AUTO PAP 6-20 cm H2O humidified AIR As directed] benzonatate 200 mg PO BID-TID PRN cholecalciferol (vitamin D3) 25 mcg PO DAILY ciclopirox 0.77% 1 appl topical BID cyanocobalamin (vitamin B-12) 2,500 mcg PO DAILY empagliflozin (Jardiance) 10 mg PO DAILY ezetimibe (Zetia) 10 mg PO DAILY fenofibrate 160 mg PO DAILY fluticasone propionate 50 mcg/actuation (Flonase Allergy Relief) 2 sprays intranasal DAILY PRN folic acid 0.4 mg PO DAILY furosemide (Lasix) 40 mg PO DAILY linagliptin (Tradjenta) 5 mg PO DAILY 30 days metoprolol tartrate 25 mg PO BID pregabalin 100 mg PO TID valsartan 40 mg PO DAILY 90 days Do you need a note to return to daycare/school/sports/work: No HPI RLD HPI Details This 77 years old very pleasant gentleman is here for follow-up for his sleep apt. He is a known case of obstructive sleep apnea for the past many years and, has been using CPAP very regularly. He has an old CPAP device , but working well. We were not able to download the compliance data, as he has to send the disc to the [employer] supply. But he tells us that he uses CPAP every night at least for 6 hours, sleeps well, and does not have any issue with the CPAP mask or the equipment. His breathing is fairly stable though he does get short of breath if he walks fast or climbs stairs. [facility] Medical History Cardiomyopathy Cataracts, bilateral Chronic otitis media Peripheral vascular disease Type 2 diabetes mellitus with hyperglycemia Erectile dysfunction Post herpetic neuralgia COPD (chronic obstructive pulmonary disease) Obstructive sleep apnea Rotator cuff tear, left Carotid stenosis Tubular adenoma of colon Hypertension Hypercholesterolemia PVCs (premature ventricular contractions) NICM (nonischemic cardiomyopathy) CAD (coronary artery disease) Surgical History History of cardiac radiofrequency ablation History of colonoscopy History of cataract surgery History of repair of rotator cuff History of cardiac catheterization History of tonsillectomy History of carotid endarterectomy Family History Father H/O ETOH abuse Hypertension Mother Hypertension Brother Diabetes Brother No problems noted. Sister No problems noted. Sister No problems noted. Social History Housing: House Do you presently have visiting nurse or other home services: No Alcohol intake: current Alcohol intake frequency: does not drink Alcohol type: beer Comment: no instruments used Patient Tobacco Use Status: Never used Tobacco e-Cigarette/Vaping Use: Never Used Second Hand Smoke Exposure: No Advance Directives Date on File: 11/17/21 service: No Current occupational status: employed Cognitive needs: No Hearing needs: Yes Vision needs: Yes Review of Systems Const All systems reviewed & are unremarkable except as noted in HPI and below Eyes Reports no additional complaints ENT Reports no additional complaints Card Denies chest pain, Denies irregular heart rhythm, Reports leg edema (Mild) and Reports dyspnea on exertion (Moderate) Resp Denies cough, Reports dyspnea on exertion (Moderate) and Denies wheezing GI Reports no additional complaints Reports no additional complaints Musc Reports no additional complaints Skin/Breast Reports system reviewed and no additional complaints, except as documented Neuro Reports no additional complaints Psych Reports no additional complaints Endo Reports no additional complaints Eliseo/Lymph Reports no additional complaints Aller/Immun Denies wheezing Physical Exam Vital Signs: Last Vital Signs Pulse 54 07/04/23 14:03 BP 110/52 L 07/04/23 14:03 Pulse Ox 95 07/04/23 14:03 Oxygen Delivery Method Room Air 07/04/23 14:03 BMI result Body Mass Index 30.2 Const General: healthy appearing (Except for being overweight), comfortable, no acute distress, alert and awake Orientation/consciousness: patient oriented x3 HEENT Head: Yes normal to inspection General nose exam: No nasal polyps present and No nasal discharge present Face and sinus: Yes sinuses nontender Mouth: oropharynx normal Throat: Yes posterior oropharynx normal Eyes General: appearance normal, both eyes and all related structures Neck Neck: Yes normal visual inspection, Yes no lymphadenopathy, Yes trachea midline and Yes no JVD Thyroid: Thyroid normal Chest Chest palpation & inspection: normal inspection of the chest, normal palpation of entire chest wall and no tenderness Resp Other: Percussion note resonant. Breath sounds are equal on both sides, slightly diminished over the basilar areas. No wheezes or crepitations are heard. Cardio Palpation: normal PMI Rate: regular rate Rhythm: regular rhythm Heart sounds: no gallops and no murmurs Peripheral pulses: Peripheral pulses 2+ throughout GI Palpation (GI): Soft to palpation, nontender, No hepatosplenomegaly present, no masses and Other GI palpation findings present (Abdomen is moderately protuberant.) Auscultation: normal bowel sounds Back/Spine/Pelvis Thoracic/Lumbar Spine: thoracic and lumbar spine normal to inspection Skin General skin exam: no rashes or lesions noted Neuro General: patient oriented x3 and no focal motor deficits Cranial nerves: Yes CN's II-XII intact bilaterally Extrem General: Yes normal to inspection, Yes no calf tenderness and Yes edema (1+ pitting edema of both legs) Psych Appearance: grossly normal and well kempt Speech and movement: Normal speech and movement present Assessment & Plan Assessment & Plan (1) JITENDRA on CPAP: Comment: Known case of obstructive sleep apnea since 2017. Has been using CPAP very regularly all this time. REMAINS VERY COMPLIANT, OLD CPAP DEVICE WAS NOT CAPABLE OF TRANSMITTING THE COMPLIANCE DATA. HE HAS THE NEW CPAP MACHINE AND ADVISED TO START USING IT REGULARLY, Code(s): G47.33 - Obstructive sleep apnea (adult) (pediatric); Z99.89 - Dependence on other enabling machines and devices Plan: Advised to use the CPAP very regularly every night. On surge his questions relating to use of distilled water and humidification. We still cannot download the compliance data and, DME supplier will send him a card to recorded and sent back to the. (2) COPD (chronic obstructive pulmonary disease): Comment: PATIENT HAS ONLY BORDERLINE OBSTRUCTIVE AIRWAY DISORDER AND DOES NOT REQUIRED TO USE ANY BRONCHODILATOR INHALERS. Code(s): J44.9 - Chronic obstructive pulmonary disease, unspecified Qualifiers: COPD type: emphysema Emphysema type: unspecified Qualified Code(s): J43.9 - Emphysema, unspecified Plan: as above Medications: Changed From metoprolol tartrate take 0.5 tablet daily ( dose not need refill at this time) - dose just reduced 25 mg (1/2 x 50 mg) PO BID 30 days 30 tabs 3RF To metoprolol tartrate take 0.5 tablet daily ( dose not need refill at this time) - dose just reduced 25 mg PO BID From fluticasone propionate 50 mcg/actuation (Flonase Allergy Relief) administer into each nostril 2 sprays intranasal DAILY 16 grams 0RF To fluticasone propionate 50 mcg/actuation (Flonase Allergy Relief) administer into each nostril 2 sprays intranasal DAILY PRN From furosemide (Lasix) Water pill 1 tablet daily 20 mg PO DAILY 90 tabs 3RF To furosemide (Lasix) Water pill 1 tablet daily 40 mg PO DAILY Coding Level of Care Code Est Pt Level 3 (51466) Diagnoses JITENDRA on CPAP G47.33; Z99.89 Pulmonary emphysema, unspecified emphysema type J43.9 COPD type: emphysema Emphysema type: unspecified
[2023-07-04 14:03] VITALS: BP 110/52; PULSE 54; O2SAT 95; BMI 30.2
== END 2023-07-04 14:29 | disposition home or self-care (01) ==
PROVIDERS: PCP Internal Medicine; Visit Provider Internal Medicine
DX: G47.33 Obstructive sleep apnea (adult) (pediatric) (principal); Z99.89 Dependence on other enabling machines and devices; J43.9 Emphysema, unspecified
CPT/HCPCS: 99213

== ENCOUNTER → 2023-07-04 13:49 | Outpatient (BNVA) | payer MEDICARE, SELFPAY | PROVIDERS: PCP Internal Medicine; Visit Provider Internal Medicine | DX: J43.9 Emphysema, unspecified (principal); G47.33 Obstructive sleep apnea (adult) (pediatric); Z79.899 Other long term (current) drug therapy; Z99.89 Dependence on other enabling machines and devices | CPT/HCPCS: 99212 ==

== ENCOUNTER → 2023-07-06 14:35 | Outpatient (BNVA) | payer MEDICARE, SELFPAY | PROVIDERS: PCP Internal Medicine; Visit Provider Nurse Practitioner Family ==

== ENCOUNTER → 2023-07-13 14:11 | Outpatient (BNVA) | payer MEDICARE, SELFPAY | PROVIDERS: PCP Internal Medicine; Visit Provider Nurse Practitioner Family ==

== ENCOUNTER → 2023-07-20 07:46 | Outpatient (REF) | payer MEDICARE, SELFPAY ==
--- NOTE | 2023-07-20 07:49 | CA_ITS ---
Transthoracic Echocardiogram Patient (Last, First, Middle): Deondre Stein A Gender: Male Date of : 1945 Age: 77 Procedure Date: 07/20/2023 Procedure Type: Transthoracic Echocardiogram Location: OP Height: 167.64 cm Weight: 81.65 kg BSA: 1.91 m2 Heart Rate: bpm BP: 110 / 52 mmHg Rosin Barrel Filler: CRISTOPHER Referring MD: Reji Jackson MD Symptoms: I50.9 - Heart failure, unspecified Study Quality: Adequate Conclusions: - Normal LV ejection fraction 55-60% with grade 1 diastolic dysfunction Findings Left Ventricle Normal left ventricular size, thickness, and systolic function. The visually estimated ejection fraction is between 55-60%. Spectral Doppler is indicative of an impaired relaxation filling pattern. E/E prime ratio is <8, consistent with normal filling pressures. Evidence suggests grade I (mild) diastolic dysfunction. Peal GLS is -16.9%, which is mildly reduced. Wall Motion Rest Echo Findings The basal inferior and basal inferolateral segments are hypokinetic. All other scored wall segments showed normal motion. Prior Study Comparison Changes noted compared to prior study dated: 03/25/2023. LV systolic function is improved Measurements 2D Linear Measurements IVSd: 0.87 0.6-0.9/0.6-1.0 cm LVIDd: 5.40 3.9-5.3/4.2-5.9 cm LVIDd Index: 2.83 2.4-3.2/2.2-3.1 cm/m2 LVIDs: 4.06 2.0-3.6 cm LVPWd: 1.22 0.7-1.1 cm LA Diam: 3.80 2.7-3.8/3.0-4.0 cm LAIDs Index: 1.99 1.5-2.3 cm/m2 LV Mass: 273.41 67-162/88-224 g LV Mass Index: 143.15 43-95/49-115 g/m2 LVOT Diam: 2.30 3.0+(-)1.3 cm 2D Systolic Function EF 4C: 54.70 >55% EF 2C: 55.00 >55% EF BiP: 55.60 >55% Mitral Valve MV Pk E: 0.59 MV PK A: 1.05 MV Decel Time: 273.00 E/A: 0.60 E'Lateral: 7.83 E'Medial: 4.79 E/E' Med: 12.30 E/E' Lat: 7.50 PHT: 80.00 MVA PHT: 2.75 Decel Carver: 2.17 LVOT LVOT Pk Clinton: 0.91 LVOT Mn Clinton: 0.67 LVOT VTI: 0.24 LVOT Pk Grad: 3.00 LVOT Mn Grad: 2.00 LVOT Diam: 2.30 LVOT Area: 4.15 Diastolic Function MV Pk E: 0.59 MV Pk A: 1.05 E/A: 0.60 E'Medial: 4.79 E/E' Med: 12.30 E' Laterial: 7.83 E/E' Lat: 7.50 Tricuspid Valve RA Press: 3.00 Updated in Other Vendor System with Status of Final Anjel Gonzalez MD electronically signed on 07/21/2023 10:51:34 AM with status of Final
== END ==
LOC: HO.CARD 07:46
PROVIDERS: PCP Internal Medicine; Visit Provider Internal Medicine Cardiovascular Disease
DX: I50.9 Heart failure, unspecified (principal)
CPT/HCPCS: 93308; 93356

== ENCOUNTER → 2023-07-20 07:49 | Outpatient (BNV) | payer MEDICARE, SELFPAY | PROVIDERS: PCP Internal Medicine; Visit Provider Internal Medicine Cardiovascular Disease | DX: I50.9 Heart failure, unspecified (principal) | CPT/HCPCS: 93308 ==

== ENCOUNTER 2023-08-01 06:57 | Outpatient (REF) | payer MEDICARE, SELFPAY ==
[2023-08-01 07:07] LABS: MANUAL DIFF FLAG NO
[2023-08-01 07:32] LABS: Basophils Absolute Auto 0.1 X10*3/uL (0.0-0.2); Basophils Percent Auto 1.1 % (0-2); Eosinophils Absolute Auto 0.5 X10*3/uL (0.0-0.4); Eosinophils Percent Auto 8.6 % (0-4); Hemoglobin 11.9 g/dl (14.0-18.0); Imm Gran Abs Auto 0.03 X10*3/uL (0.00-0.03); Imm Gran Pct Auto 0.5 % (0.0-0.4); Lymphocytes Percent Auto 17.5 % (20-40); Mean Corpuscular HGB Conc 31.3 g/dl (31.0-36.0); Mean Corpuscular Hemoglobin 29.5 pg (27.0-33.0); Mean Corpuscular Volume 94.3 fL (80.0-98.0); Mean Platelet Volume 11.6 fL (9.4-12.4); Monocytes Absolute Auto 0.6 X10*3/uL (0.1-1.2); Monocytes Percent Auto 10.9 % (2-11); Neutrophils Absolute Auto 3.4 x10*3/uL (2.0-8.3); Neutrophils Percent Auto 61.4 % (45-73); Platelet Count 222 X10*3/uL (160-400); Red Blood Count 4.03 X10*6/uL (4.60-5.80); Red Cell Distribution Width 18.3 % (11.0-16.0); White Blood Count 5.6 X10*3/uL (4.8-10.8)
[2023-08-01 08:15] LABS: Alanine Aminotransferase 33 U/L (0-40); Alkaline Phosphatase 49 U/L (39-117); Anion Gap 13 (12-20); Aspartate Amino Transferase 58 U/L (5-37); Bilirubin Total 0.5 mg/dL (0.0-1.0); Blood Urea Nitrogen 52 mg/dL (9-16); Calcium 10.1 mg/dL (8.4-10.2); Carbon Dioxide 31 mmol/L (22-29); Chloride 103 mmol/L (96-108); Cholesterol 133 mg/dL (<200); Glucose Random 120 mg/dL (60-115); HDL Cholesterol 28 mg/dL (>40); LDL Cholesterol Calculated 69 mg/dL (<100); Sodium 142 mmol/L (135-145); Triglycerides 184 mg/dL (<150)
[2023-08-01 08:29] LABS: Estimated Glomerular Filt Rate 14
[2023-08-01 08:30] LABS: Thyroid Stimulating Hormone 1.35 uIU/mL (0.32-4.0)
[2023-08-01 08:39] LABS: B Type Natriuretic Peptide 58 pg/mL (<100)
== END 2023-08-01 06:58 | disposition home or self-care (01) ==
LOC: HO.LAB 06:57
PROVIDERS: PCP Internal Medicine; Visit Provider Internal Medicine
DX: I25.10 Atherosclerotic heart disease of native coronary artery without angina pectoris (principal); E78.00 Pure hypercholesterolemia, unspecified
CPT/HCPCS: 36415; 80053; 80061; 83880; 84439; 84443; 85025

== ENCOUNTER 2023-08-08 16:39 | Emergency (ER) | payer MEDICARE, SELFPAY ==
[2023-08-08 16:43] VITALS: BP 120/40; PULSE 65; RESP 16; TEMP 36.3; O2SAT 92; BMI 28.2
--- NOTE | 2023-08-08 16:51 | ECG_ITS ---
Test Reason : chest pain Blood Pressure : / mmHG Vent. Rate : 056 BPM Atrial Rate : 056 BPM P-R Int : 238 ms QRS Dur : 146 ms QT Int : 488 ms P-R-T Axes : 005 -50 002 degrees QTc Int : 470 ms Sinus bradycardia with 1st degree A-V block Left axis deviation Right bundle branch block Abnormal ECG When compared with ECG of 29-APR-2023 14:56, Premature supraventricular complexes are no longer Present Referred By: Generic ED Physician Electronically Signed By:CHRIS COLES MD
--- NOTE | 2023-08-08 16:54 | ED.GENADULT ---
HPI - General Adult General Chief complaint: Dizziness Stated complaint: dizziness, dehydrated Time Seen by Provider: 08/08/23 23:13 Source: patient Mode of arrival: ambulatory History of Present Illness HPI narrative: 77-year-old male with multiple medical comorbidities, currently on chronic anticoagulation and presents today after having an episode of dizziness while standing for a prolonged period of time last night and states restless legs but denies any associated shortness of breath/chest pain/palpitations with the dizziness. Patient states that EMS came to evaluate him and recommended that he come into the emergency room but he declined transport last night. Patient has had no further episodes dizziness or light headedness since last night and denies any recent illnesses and denies any recent falls. Related Data Home Medications Medication Instructions Recorded Confirmed folic acid 400 mcg tablet 0.4 mg PO DAILY 03/12/20 07/04/23 cholecalciferol (vitamin D3) 25 25 mcg PO DAILY 08/19/21 07/04/23 mcg (1,000 unit) capsule cyanocobalamin (vitamin B-12) 2,500 mcg PO DAILY 08/19/21 07/04/23 2,500 mcg tablet pregabalin 100 mg capsule 100 mg PO TID 09/21/21 07/04/23 ciclopirox 0.77 % topical cream 1 appl topical BID 03/23/23 07/04/23 fluticasone propionate 50 2 spray intranasal DAILY PRN 07/04/23 07/04/23 mcg/actuation nasal spray,suspension (Flonase Allergy Relief) furosemide 20 mg tablet (Lasix) 40 mg PO DAILY 07/04/23 07/04/23 Previous Rx's Medication Instructions Recorded AUTO PAP 6-20 cm H2O humidified AIR #1 ea 04/29/22 amiodarone 200 mg tablet 200 mg PO DAILY #90 tabs 04/08/23 linagliptin 5 mg tablet (Tradjenta) 5 mg PO DAILY 30 days #30 tabs 04/11/23 fenofibrate 160 mg tablet 160 mg PO DAILY #90 tabs 05/26/23 ezetimibe 10 mg tablet (Zetia) 10 mg PO DAILY #30 tabs 06/06/23 apixaban 5 mg tablet (Eliquis) 5 mg PO BID 30 days #60 tabs 06/13/23 benzonatate 200 mg capsule 200 mg PO BID-TID PRN cough #20 06/14/23 caps atorvastatin 40 mg tablet 40 mg PO DAILY #90 tabs 06/20/23 empagliflozin 10 mg tablet 10 mg PO DAILY #30 tabs 06/23/23 (Jardiance) valsartan 40 mg tablet 40 mg PO DAILY 90 days #90 tabs 07/04/23 Allergies Allergy/AdvReac Type Severity Reaction Status Date / Time lisinopril Allergy Unknown Unknown Verified 07/04/23 14:28 Penicillins [PENICILLINS] Allergy Unknown UNKNOWN Verified 07/04/23 14:28 REACTION-CHILDHOOD ALLERGY Review of Systems Review of Systems: Pertinent positives and negatives as stated in [facility] Past Medical History Source: nursing notes reviewed Medical History Cardiomyopathy Cataracts, bilateral Chronic otitis media Peripheral vascular disease Type 2 diabetes mellitus with hyperglycemia Erectile dysfunction Post herpetic neuralgia COPD (chronic obstructive pulmonary disease) Obstructive sleep apnea Rotator cuff tear, left Carotid stenosis Tubular adenoma of colon Hypertension Hypercholesterolemia PVCs (premature ventricular contractions) NICM (nonischemic cardiomyopathy) CAD (coronary artery disease) Surgical History History of cardiac radiofrequency ablation History of colonoscopy History of cataract surgery History of repair of rotator cuff History of cardiac catheterization History of tonsillectomy History of carotid endarterectomy Family History Family History Father H/O ETOH abuse Hypertension Mother Hypertension Brother Diabetes Brother No problems noted. Sister No problems noted. Sister No problems noted. Social History Social History Housing: House Do you presently have visiting nurse or other home services: No Alcohol intake: current Alcohol intake frequency: a few times a month Alcohol type: beer Comment: no instruments used Patient Tobacco Use Status: Never used Tobacco e-Cigarette/Vaping Use: Never Used Second Hand Smoke Exposure: No Advance Directives Date on File: 11/17/21 service: No Current occupational status: employed Cognitive needs: No Hearing needs: Yes Vision needs: Yes Physical Exam ED Vital Signs: Vital Signs - 24 hr 08/08/23 16:43 08/08/23 23:35 08/08/23 23:35 Temperature 97.4 F Pulse Rate 65 51 53 Respiratory Rate 16 Blood Pressure 120/40 L 139/53 L 140/53 H Pulse Oximetry 92 Oxygen Delivery Method Room Air 08/08/23 23:36 08/08/23 23:36 Temperature 97.6 F Pulse Rate 54 51 Respiratory Rate 13 Blood Pressure 145/51 H 139/53 L Pulse Oximetry 95 Oxygen Delivery Method Room Air BMI result Body Mass Index 28.2 VITAL SIGNS: Reviewed. GENERAL: Well developed, well nourished, in no acute distress. HEAD: Normocephalic/atraumatic EYES: PERRLA, EOMI EARS: Ext canals without abnormality NOSE: Nares patent bilateral OROPHARYNX: no oral lesions noted, posterior pharynx clear NECK: Supple, no adenopathy LUNGS: Good inspiratory effort, no tachypnea, no wheeze/rhonchi/rales SpO2<95> CARDIOVASCULAR: Regular rate and rhythm without noted murmurs, 1+ pitting edema ABDOMEN: Soft, non-tender, non-distended with bowel sounds. MUSCULOSKELETAL: No tenderness, deformities, or effusions noted on gross inspection. EXTREMITIES: No cyanosis, clubbing or edema. SKIN: Inspection of the skin reveals no rashes NEUROLOGIC: Alert and oriented x 4. Strength and sensation to light touch were grossly intact x 4, cranial nerves 2-12 are grossly intact, no pronator drift. Course Course Course Narrative: RME: 77-year-old male presents ED for dizziness and restless leg syndrome. Patient has significant cardiac history. patient denies any leg swelling or calf pain. Patient has not been eating due to him taking care of his dying in hospice. EKG and labs ordered. Negative for any neuro deficits Medical Decision Making Medical Decision Making MDM Narrative: 77-year-old male with history and clinical presentation, DDX: Infection, postural, abnml electrolyte there are no focal findings or history raising concern for intracranial hemorrhage. I reviewed all investigations and patient is hematologic indices are chronically stable without leukocytosis/thrombocytopenia and there is a chronic normocytic anemia. Coagulation studies reflect patient's use of chronic anticoagulation. Chemistry indices are significant for persistent renal function decline and feel the patient should be further evaluated by primary care doctor/nephrology if referrals have not already been made. There are no electrolyte or liver enzyme derangements. Serial troponins are flat and patient has no complaints of chest pain and there are no acute changes on EKG. Orthostatics remained stable, and my interpretation is that patient had an episode of dizziness likely related to prolonged standing, there are no acute findings to suggest occult infection/electrolyte derangements. Differential Diagnosis Differential Diagnoses: The differential diagnosis associated with the presentation includes Please see the discussion above Admission/Observation Consideration of admission/observation: Escalation of care including admission/observation considered Please see the discussion above Lab Data MDM Lab Attestation statement: I reviewed the patient's lab results. Please see the discussion above 08/08/23 19:09 08/08/23 19:09 Labs: Lab Results 08/08/23 08/08/23 Range/Units 19:09 23:42 WBC 6.1 (4.8-10.8) X10*3/uL RBC 3.85 L (4.60-5.80) X10*6/uL Hgb 11.5 L (14.0-18.0) g/dl Hct 35.8 L (42.0-52.0) % MCV 93.0 (80.0-98.0) fL MCH 29.9 (27.0-33.0) pg MCHC 32.1 (31.0-36.0) g/dl RDW 17.3 H (11.0-16.0) % Plt Count 198 (160-400) X10*3/uL MPV 11.6 (9.4-12.4) fL Immature Gran % (Auto) 0.3 (0.0-0.4) % Neut % (Auto) 60.6 (45-73) % Lymph % (Auto) 19.4 L (20-40) % [place] % (Auto) 10.9 (2-11) % Eos % (Auto) 7.8 H (0-4) % Baso % (Auto) 1.0 (0-2) % Lymph # (Auto) 1.2 (1.2-4.9) X10*3/uL [place] # (Auto) 0.7 (0.1-1.2) X10*3/uL Eos # (Auto) 0.5 H (0.0-0.4) X10*3/uL Baso # (Auto) 0.1 (0.0-0.2) X10*3/uL Abs Immat Gran (auto) 0.02 (0.00-0.03) X10*3/uL Absolute Neuts (auto) 3.7 (2.0-8.3) x10*3/uL Absolute Nucleated RBC 0.000 (0.0-0.012) X10*3/uL Nucleated RBC % (auto) 0.0 (0.0-0.2) /100WBC PT 16.7 H (11.1-13.3) SEC INR 1.4 H (0.9-1.1) APTT 37.6 H (26.0-36.8) SEC Sodium 144 (135-145) mmol/L Potassium 4.9 (3.3-5.1) mmol/L Chloride 109 H (96-108) mmol/L Carbon Dioxide 28 (22-29) mmol/L Anion Gap 12 (12-20) BUN 65 H (9-16) mg/dL Creatinine 3.43 H (0.5-1.4) mg/dL Estim Creat Clear Calc 18.1 Estimated GFR 17 Random Glucose 119 H (60-115) mg/dL Calcium 9.2 D (8.4-10.2) mg/dL Total Bilirubin 0.3 (0.0-1.0) mg/dL AST 74 H (5-37) U/L ALT 34 (0-40) U/L Alkaline Phosphatase 60 (39-117) U/L Total Creatine Kinase 133 (38-174) U/L Troponin I High Sens 15.7 D 17.9 (<3.5-35.0) ng/L B-Natriuretic Peptide 78 (<100) pg/mL Total Protein 6.9 (6.5-8.0) g/dL Albumin 4.0 (3.5-5.0) g/dL Independent Interpretation I performed an independent interpretation of an: EKG Interpretation: Sinus bradycardia with first-degree AV block present at baseline, HR-56, no STEMI, RBBB present at baseline, NJ-to 38/QRS -146/QTC-470. External Record Review External record reviewed: Outpatient record, Prior outpatient labs and Prior outpatient radiology Chronic Conditions Patient?s care impacted by: Diabetes COPD Critical Care Time Critical Care Time Critical Care Time: Yes Total Critical Care Time: 30 Attestation: I personally attest to this time spent taking care of the patient. Discharge Plan Discharge Clinical Impression: Light-headedness, Restless leg, CKD (chronic kidney disease) Patient Disposition: Home, Self-Care Instructions: Chronic Kidney Disease (ED), Lightheadedness (ED), Restless Legs Syndrome (ED) Additional Instructions: 1. Resume all home medications as prescribed. 2. Your kidney function appears to have worsened since February at your last lab work and I highly recommend follow-up with your primary care doctor in a referral to nephrology for discussion regarding medications that may be contributing to this. 3. Please follow-up with your primary care doctor by calling the office 1st thing in the morning. Return to the ER for any worsening symptoms. Prescriptions: No Action (DME) AUTO PAP 6-20 cm H2O humidified AIR See Rx Instructions .Route .MEDSUPPLY Qty: 1 0RF Rx Instructions: As directed Tradjenta 5 mg tablet 5 mg PO DAILY 30 Days Qty: 30 3RF fenofibrate 160 mg tablet 160 mg PO DAILY Qty: 90 3RF Eliquis 5 mg tablet 5 mg PO BID 30 Days Qty: 60 5RF benzonatate 200 mg capsule 200 mg PO BID-TID PRN (Reason: cough) Qty: 20 0RF atorvastatin 40 mg tablet 40 mg PO DAILY Qty: 90 3RF Jardiance 10 mg tablet 10 mg PO DAILY Qty: 30 3RF valsartan 40 mg tablet 40 mg PO DAILY 90 Days Qty: 90 3RF Hold Instructions: Doctor's Order ciclopirox 0.77 % cream 1 appl topical BID cholecalciferol (vitamin D3) 25 mcg (1,000 unit) capsule 25 mcg PO DAILY cyanocobalamin (vitamin B-12) 2,500 mcg tablet 2,500 mcg PO DAILY folic acid 400 mcg tablet 0.4 mg PO DAILY pregabalin 100 mg capsule 100 mg PO TID fluticasone propionate [Flonase Allergy Relief] 50 mcg/actuation spray,suspension 2 spray intranasal DAILY PRN Rx Instructions: administer into each nostril furosemide [Lasix] 20 mg tablet 40 mg PO DAILY Hold Instructions: Doctor's Order Rx Instructions: Water pill 1 tablet daily amiodarone 200 mg tablet 200 mg PO DAILY Qty: 90 1RF ezetimibe [Zetia] 10 mg tablet 10 mg PO DAILY Qty: 30 5RF Rx Instructions: New cholesterol lower medication -take in addition to your atorvastatin Take 1 tablet daily Referrals: Elida Siddiqui MD [Primary Care Provider] - Interventions: ED Discharge Assessment Last Done: 08/09/23 00:55 Discharge Date/Time: 08/09/23 01:08
[2023-08-08 19:13] LABS: MANUAL DIFF FLAG NO
[2023-08-08 19:26] LABS: Basophils Absolute Auto 0.1 X10*3/uL (0.0-0.2); Eosinophils Absolute Auto 0.5 X10*3/uL (0.0-0.4); Eosinophils Percent Auto 7.8 % (0-4); Hematocrit 35.8 % (42.0-52.0); Hemoglobin 11.5 g/dl (14.0-18.0); Imm Gran Abs Auto 0.02 X10*3/uL (0.00-0.03); Imm Gran Pct Auto 0.3 % (0.0-0.4); Lymphocytes Absolute Auto 1.2 X10*3/uL (1.2-4.9); Lymphocytes Percent Auto 19.4 % (20-40); Mean Corpuscular HGB Conc 32.1 g/dl (31.0-36.0); Mean Corpuscular Hemoglobin 29.9 pg (27.0-33.0); Mean Platelet Volume 11.6 fL (9.4-12.4); Monocytes Absolute Auto 0.7 X10*3/uL (0.1-1.2); Monocytes Percent Auto 10.9 % (2-11); Neutrophils Absolute Auto 3.7 x10*3/uL (2.0-8.3); Neutrophils Percent Auto 60.6 % (45-73); Platelet Count 198 X10*3/uL (160-400); Red Blood Count 3.85 X10*6/uL (4.60-5.80); Red Cell Distribution Width 17.3 % (11.0-16.0); White Blood Count 6.1 X10*3/uL (4.8-10.8)
[2023-08-08 19:31] LABS: INTERNATIONAL NORM RATIO 1.4 (0.9-1.1); Prothrombin Time 16.7 SEC (11.1-13.3)
[2023-08-08 19:33] LABS: Partial Thromboplastin Time 37.6 SEC (26.0-36.8)
[2023-08-08 19:41] LABS: Alanine Aminotransferase 34 U/L (0-40); Alkaline Phosphatase 60 U/L (39-117); Anion Gap 12 (12-20); Aspartate Amino Transferase 74 U/L (5-37); Bilirubin Total 0.3 mg/dL (0.0-1.0); Blood Urea Nitrogen 65 mg/dL (9-16); Calcium 9.2 mg/dL (8.4-10.2); Carbon Dioxide 28 mmol/L (22-29); Chloride 109 mmol/L (96-108); Creatinine Clr Calc Pharmacy 18.1; Estimated Glomerular Filt Rate 17; Glucose Random 119 mg/dL (60-115); Potassium 4.9 mmol/L (3.3-5.1); Sodium 144 mmol/L (135-145); Total Protein 6.9 g/dL (6.5-8.0)
[2023-08-08 19:48] LABS: Troponin-I High Sensitivity 15.7 ng/L (<3.5-35.0)
[2023-08-08 19:55] LABS: B Type Natriuretic Peptide 78 pg/mL (<100)
[2023-08-08 23:35] VITALS: BP 139/53; BP 140/53; PULSE 51; PULSE 53
[2023-08-08 23:36] VITALS: BP 139/53; BP 145/51; PULSE 51; PULSE 54; RESP 13; TEMP 36.4; O2SAT 95
[2023-08-09 00:08] LABS: Troponin-I High Sensitivity 17.9 ng/L (<3.5-35.0)
== END 2023-08-09 01:08 | disposition home or self-care (01) ==
PROVIDERS: Physician Assistant; Emergency Provider Student in an Organized Health Care Education/Training Program; PCP Internal Medicine
DX: R42 Dizziness and giddiness (principal); G25.81 Restless legs syndrome; E11.22 Type 2 diabetes mellitus with diabetic chronic kidney disease; I12.9 Hypertensive chronic kidney disease with stage 1 through stage 4 chronic kidney disease, or unspecified chronic kidney disease; N18.9 Chronic kidney disease, unspecified; Z79.01 Long term (current) use of anticoagulants
CPT/HCPCS: 36415; 80053; 82550; 83880; 84484; 85025; 85610; 85730; 93005; 99283; 99285

== ENCOUNTER → 2023-08-08 16:51 | Outpatient (BNV) | payer MEDICARE, SELFPAY | PROVIDERS: Emergency Provider Student in an Organized Health Care Education/Training Program; PCP Internal Medicine; Visit Provider Internal Medicine Cardiovascular Disease | DX: R42 Dizziness and giddiness (principal) | CPT/HCPCS: 93010 ==

== ENCOUNTER 2023-08-09 20:09 | Inpatient (IN) | payer MEDICARE, SELFPAY ==
--- NOTE | ~2023-08-09 | XR_ITS ---
EXAMINATION: XR CHEST CLINICAL INFORMATION: Dyspnea. COMPARISON: 03/23/2023. TECHNIQUE: Frontal view of the chest was obtained. FINDINGS: The cardiac silhouette is enlarged but stable. There is no focal lung consolidation or evidence for significant pleural effusion. The bony structures and soft tissues are unremarkable. XR/XR chest 1V IMPRESSION: Stable cardiomegaly. No evidence for acute disease.
--- NOTE | ~2023-08-09 | CT_ITS ---
EXAMINATION: CT ABDOMEN AND PELVIS WITHOUT CONTRAST CLINICAL INFORMATION: New onset renal failure COMPARISON: Abdominal ultrasound from 2019 TECHNIQUE: Multidetector volumetric imaging was performed from the superior aspect of the liver through the pubic symphysis. Sagittal and coronal reformatted images were obtained on the technologist's workstation. This CT examination was performed using dose optimization techniques as appropriate, variously including the following: *Automated exposure control *Adjustment of mA and/or kV according to patient size (this includes techniques or standardized protocols for targeted exams where dose is matched to indication/reason for exam; i.e. extremities or head) *Use of iterative reconstruction technique DLP: 547 mGy-cm FINDINGS: LUNG BASES: The visualized lung bases are clear. Enlarged heart and coronary artery calcification. LIVER, GALLBLADDER, AND BILIARY TREE: The liver is normal in size, shape, and attenuation. No focal hepatic lesion or biliary ductal dilatation is present. The gallbladder is unremarkable with no evidence of radiopaque gallstones, gallbladder wall thickening, or obvious pericholecystic inflammatory changes. PANCREAS: Unremarkable. SPLEEN: Unremarkable. ADRENAL GLANDS: Unremarkable. KIDNEYS AND URETERS: The kidneys are normal in size, shape, and attenuation. No hydronephrosis, hydroureter, or calculi seen. No perinephric stranding. Left renal cysts. No imaging follow-up. BLADDER: Gonzalez catheter in the bladder. Bladder is empty. Question slightly thickened trabeculated bladder wall. GASTROINTESTINAL TRACT: Diverticulosis of the colon. The small and large bowel are unremarkable. The appendix is unremarkable. ABDOMINAL WALL: Left inguinal hernia fat. LYMPH NODES: Normal. VASCULAR: Atherosclerotic disease. No aneurysm. PELVIC VISCERA: Unremarkable. OSSEOUS STRUCTURES: Degenerative changes of the spine. CT/CT abdomen pelvis wo IV con IMPRESSION: No hydronephrosis. Gonzalez catheter in the bladder. Diverticulosis of the colon. Fleischner guidelines were followed.
[2023-08-09 20:15] VITALS: BP 118/72; PULSE 68; O2SAT 95
[2023-08-09 20:23] VITALS: BP 108/58; PULSE 61; RESP 18; TEMP 36.7; O2SAT 97; BMI 28.2
--- NOTE | 2023-08-09 20:35 | ECG_ITS ---
Test Reason : AFIB Blood Pressure : / mmHG Vent. Rate : 060 BPM Atrial Rate : 060 BPM P-R Int : 236 ms QRS Dur : 156 ms QT Int : 488 ms P-R-T Axes : 058 -55 024 degrees QTc Int : 488 ms Sinus rhythm with 1st degree A-V block Left axis deviation Right bundle branch block T wave abnormality, consider lateral ischemia Abnormal ECG When compared with ECG of 08-AUG-2023 16:53, No significant change was found Referred By: Generic ED Physician Electronically Signed By:CHRIS COLES MD
[2023-08-09 20:44] LABS: MANUAL DIFF FLAG NO
[2023-08-09 20:46] LABS: Basophils Absolute Auto 0.1 X10*3/uL (0.0-0.2); Basophils Percent Auto 0.7 % (0-2); Eosinophils Absolute Auto 0.4 X10*3/uL (0.0-0.4); Eosinophils Percent Auto 5.9 % (0-4); Hematocrit 33.6 % (42.0-52.0); Hemoglobin 10.9 g/dl (14.0-18.0); Imm Gran Abs Auto 0.03 X10*3/uL (0.00-0.03); Imm Gran Pct Auto 0.4 % (0.0-0.4); Lymphocytes Absolute Auto 1.2 X10*3/uL (1.2-4.9); Lymphocytes Percent Auto 16.8 % (20-40); Mean Corpuscular HGB Conc 32.4 g/dl (31.0-36.0); Mean Corpuscular Hemoglobin 29.9 pg (27.0-33.0); Mean Corpuscular Volume 92.3 fL (80.0-98.0); Mean Platelet Volume 10.8 fL (9.4-12.4); Monocytes Absolute Auto 0.7 X10*3/uL (0.1-1.2); Monocytes Percent Auto 10.5 % (2-11); Neutrophils Absolute Auto 4.6 x10*3/uL (2.0-8.3); Neutrophils Percent Auto 65.7 % (45-73); Platelet Count 185 X10*3/uL (160-400); Red Blood Count 3.64 X10*6/uL (4.60-5.80); Red Cell Distribution Width 17.2 % (11.0-16.0)
[2023-08-09 21:08] LABS: Alanine Aminotransferase 40 U/L (0-40); Albumin Level 3.8 g/dL (3.5-5.0); Alkaline Phosphatase 49 U/L (39-117); Anion Gap 13 (12-20); Aspartate Amino Transferase 103 U/L (5-37); Bilirubin Total 0.3 mg/dL (0.0-1.0); Blood Urea Nitrogen 63 mg/dL (9-16); Calcium 9.2 mg/dL (8.4-10.2); Carbon Dioxide 27 mmol/L (22-29); Chloride 106 mmol/L (96-108); Creatinine Clr Calc Pharmacy 16.7; Estimated Glomerular Filt Rate 16; Glucose Fasting 157 mg/dL (60-99); Potassium 4.3 mmol/L (3.3-5.1); Sodium 142 mmol/L (135-145); Total Protein 6.6 g/dL (6.5-8.0)
[2023-08-09] MEDS: 0.9 % Sodium Chloride 1,000 ML 999 ML IV (21:41)
--- NOTE | 2023-08-09 21:47 | ED_ITS ---
HPI - Recheck/Abnormal Lab/Rx General Chief Complaint: Recheck/Abnormal Lab/Rx Stated Complaint: HIGH CREATININE Time Seen by Provider: 08/09/23 21:05 Source: patient, family and old records reviewed Mode of arrival: ambulatory Limitations: no limitations History of Present Illness HPI narrative: 77 yo male with PMH of afib with RVR on eliquis, JITENDRA on CPAP, CHF 07/20/23 EF 55- 60%, PVD, COPD, DM, CAD here with c/o intermittent dizziness and feeling weak. He has also had some back pain. Seen yesterday for same. Typical baseline Cr up until February when it was last checked was 1.5 At start of July checked and found to be 4 yesterday 3.4 and he is symptomatic. He is still taking his lasix. He has been urinating 5 times a day but it is dark. He is going through stress as his is actively dying at [facility]. MD complaint: abnormal lab (dizziness) Initial visit (ago): week(s) (couple) Initial visit for: other (dizziness) Returns today for: called because of abnormal lab/test ([facility] came today and gave IVF but patient still symptomatic) Symptoms since prior visit: no new symptoms Context: called for abnormal lab result Associated symptoms: other (dizziness) Treatments prior to arrival: home treatments Related Data Home Medications Medication Instructions Recorded Confirmed folic acid 400 mcg tablet 0.4 mg PO DAILY 03/12/20 07/04/23 cholecalciferol (vitamin D3) 25 25 mcg PO DAILY 08/19/21 07/04/23 mcg (1,000 unit) capsule cyanocobalamin (vitamin B-12) 2,500 mcg PO DAILY 08/19/21 07/04/23 2,500 mcg tablet pregabalin 100 mg capsule 100 mg PO TID 09/21/21 07/04/23 ciclopirox 0.77 % topical cream 1 appl topical BID 03/23/23 07/04/23 fluticasone propionate 50 2 spray intranasal DAILY PRN 07/04/23 07/04/23 mcg/actuation nasal spray,suspension (Flonase Allergy Relief) furosemide 20 mg tablet (Lasix) 40 mg PO DAILY 07/04/23 07/04/23 Previous Rx's Medication Instructions Recorded AUTO PAP 6-20 cm H2O humidified AIR #1 ea 04/29/22 amiodarone 200 mg tablet 200 mg PO DAILY #90 tabs 04/08/23 linagliptin 5 mg tablet (Tradjenta) 5 mg PO DAILY 30 days #30 tabs 04/11/23 fenofibrate 160 mg tablet 160 mg PO DAILY #90 tabs 05/26/23 ezetimibe 10 mg tablet (Zetia) 10 mg PO DAILY #30 tabs 06/06/23 apixaban 5 mg tablet (Eliquis) 5 mg PO BID 30 days #60 tabs 06/13/23 benzonatate 200 mg capsule 200 mg PO BID-TID PRN cough #20 06/14/23 caps atorvastatin 40 mg tablet 40 mg PO DAILY #90 tabs 06/20/23 empagliflozin 10 mg tablet 10 mg PO DAILY #30 tabs 06/23/23 (Jardiance) valsartan 40 mg tablet 40 mg PO DAILY 90 days #90 tabs 07/04/23 Allergies Allergy/AdvReac Type Severity Reaction Status Date / Time lisinopril Allergy Unknown Unknown Verified 08/09/23 20:32 Penicillins [PENICILLINS] Allergy Unknown UNKNOWN Verified 08/09/23 20:32 REACTION-CHILDHOOD ALLERGY Review of Systems 2 Review of Systems: Constitutional : No Fever, No Chills, pos Fatigue ENT/Mouth : No sore throat, No Rhinorrhea Eyes: No Eye Pain, No Swelling, No Redness Cardiovascular : No Chest Pain, No SOB, No Dyspnea on Exertion Respiratory : No Cough, No Sputum Gastrointestinal : No Nausea, No Vomiting, No Diarrhea, No abdominal Pain Genitourinary : No Dysuria, No Urinary Frequency, No Hematuria, Musculoskeletal : No joint pain, No Myalgias, No Joint Swelling Skin : No Skin Lesions, No rash Neuro : No Weakness, No Numbness, pos Dizziness, no Headache Psych : No Anxiety/Panic, No Depression All other systems reviewed and are negative [facility] Past Medical History Attestation statement: The following information was validated with the patient. Source: old records reviewed Medical History Cardiomyopathy Cataracts, bilateral Chronic otitis media Peripheral vascular disease Type 2 diabetes mellitus with hyperglycemia Erectile dysfunction Post herpetic neuralgia COPD (chronic obstructive pulmonary disease) Obstructive sleep apnea Rotator cuff tear, left Carotid stenosis Tubular adenoma of colon Hypertension Hypercholesterolemia PVCs (premature ventricular contractions) NICM (nonischemic cardiomyopathy) CAD (coronary artery disease) Surgical History History of cardiac radiofrequency ablation History of colonoscopy History of cataract surgery History of repair of rotator cuff History of cardiac catheterization History of tonsillectomy History of carotid endarterectomy Family History Family History Father H/O ETOH abuse Hypertension Mother Hypertension Brother Diabetes Brother No problems noted. Sister No problems noted. Sister No problems noted. Social History Social History Housing: House Do you presently have visiting nurse or other home services: No Alcohol intake: current Alcohol intake frequency: a few times a month Alcohol type: beer Comment: no instruments used Patient Tobacco Use Status: Never used Tobacco e-Cigarette/Vaping Use: Never Used Second Hand Smoke Exposure: No Advance Directives: No Advance Directives Information Provided: No Advance Directives Date on File: 11/17/21 service: No Current occupational status: employed Cognitive needs: No Hearing needs: Yes Vision needs: Yes Physical Exam 2 Vital Signs: Vital Signs: Last Vital Signs Temp 98.1 F 08/09/23 20:23 Pulse 61 08/09/23 20:23 Resp 18 08/09/23 20:23 BP 108/58 L 08/09/23 20:23 Pulse Ox 97 08/09/23 20:23 O2 Del Method Room Air 08/09/23 20:23 BMI result Body Mass Index 28.2 Appearance: Alert. Oriented X3. No acute distress. Eyes: Pupils equal, round and reactive to light. ENT: Pharynx mildly dry MM Neck: Normal inspection. Neck supple. CVS: Normal heart rate and rhythm. Pulses normal. Respiratory: No respiratory distress. Breath sounds normal. Abdomen: Soft and non-tender. Skin: Skin warm and dry. Normal skin color. Normal skin turgor. Extremities: No lower extremity edema. No calf ttp Neuro: Oriented X 3. No motor deficit. No sensory deficit. Medications Administered Discontinued Medications Generic Name Dose Route Start Last Admin Trade Name Freq PRN Reason Stop Dose Admin Sodium Chloride 1,000 mls @ 999 mls/hr 08/09/23 21:15 08/09/23 21:41 Ns IV 08/09/23 22:15 999 mls/hr .Q1H1M MARIA FERNANDA Administration Medical Decision Making Medical Decision Making [facility] Narrative: 77 yo male with PMH of afib with RVR on eliquis, JITENDRA on CPAP, CHF 07/20/23 EF 55- 60%, PVD, COPD, DM, CAD here with worsening CANDI on CKD starting this month with dizziness and fatigue at this time he is on lasix and valsartan will obtain basic labs, UA, CT scan for mass, alaniz, CPK, start hydration and admit for further management. Differential Diagnosis Differential Diagnoses: The differential diagnosis associated with the presentation includes CANDI, CKD, mass, CANDI on CKD, rhabdo, FTT Admission/Observation Consideration of admission/observation: Escalation of care including admission/observation considered admit for CANDI on CKD Consult Healthcare Provider Management of the patient was discussed with: Hospitalist (will admit) Lab Data [facility] Lab Attestation statement: I reviewed the patient's lab results. 08/09/23 20:39 08/09/23 20:39 Labs: Lab Results 08/09/23 Range/Units 20:39 WBC 7.0 (4.8-10.8) X10*3/uL RBC 3.64 L (4.60-5.80) X10*6/uL Hgb 10.9 L (14.0-18.0) g/dl Hct 33.6 L (42.0-52.0) % MCV 92.3 (80.0-98.0) fL MCH 29.9 (27.0-33.0) pg MCHC 32.4 (31.0-36.0) g/dl RDW 17.2 H (11.0-16.0) % Plt Count 185 (160-400) X10*3/uL MPV 10.8 (9.4-12.4) fL Immature Gran % (Auto) 0.4 (0.0-0.4) % Neut % (Auto) 65.7 (45-73) % Lymph % (Auto) 16.8 L (20-40) % [place] % (Auto) 10.5 (2-11) % Eos % (Auto) 5.9 H (0-4) % Baso % (Auto) 0.7 (0-2) % Lymph # (Auto) 1.2 (1.2-4.9) X10*3/uL [place] # (Auto) 0.7 (0.1-1.2) X10*3/uL Eos # (Auto) 0.4 (0.0-0.4) X10*3/uL Baso # (Auto) 0.1 (0.0-0.2) X10*3/uL Abs Immat Gran (auto) 0.03 (0.00-0.03) X10*3/uL Absolute Neuts (auto) 4.6 (2.0-8.3) x10*3/uL Absolute Nucleated RBC 0.000 (0.0-0.012) X10*3/uL Nucleated RBC % (auto) 0.0 (0.0-0.2) /100WBC Sodium 142 (135-145) mmol/L Potassium 4.3 (3.3-5.1) mmol/L Chloride 106 (96-108) mmol/L Carbon Dioxide 27 (22-29) mmol/L Anion Gap 13 (12-20) BUN 63 H (9-16) mg/dL Creatinine 3.72 H (0.5-1.4) mg/dL Estim Creat Clear Calc 16.7 Estimated GFR 16 Fasting Glucose 157 H (60-99) mg/dL Calcium 9.2 (8.4-10.2) mg/dL Total Bilirubin 0.3 (0.0-1.0) mg/dL AST 103 H (5-37) U/L ALT 40 (0-40) U/L Alkaline Phosphatase 49 (39-117) U/L Total Creatine Kinase 106 (38-174) U/L Total Protein 6.6 (6.5-8.0) g/dL Albumin 3.8 (3.5-5.0) g/dL Independent Interpretation I performed an independent interpretation of an: EKG and CT Scan (no hydronephrosis. ) Interpretation: Rate: 60 Rhythm: afib [place]: left RBBB. ST T wave : no [place], inverted T waves V-V5. qTC: 488 prior studies: no acute ischemia The study has been interpreted contemporaneously by me. . Radiology Impression Discussion of test interpretation with radiology: I have reviewed the radiologist's reading. External Record Review External record reviewed: Inpatient record and Prior outpatient labs Discharge Plan Discharge Clinical Impression: Acute kidney injury superimposed on chronic kidney disease Patient Disposition: Admitted As Inpatient
[2023-08-09] MEDS: 0.9 % Sodium Chloride 1,000 ML 100 ML IVCONT (23:18)
[2023-08-09 23:22] LABS: Appearance Urine Clear; Color Urine Yellow; Glucose Urine UA >=1000 mg/dL (Negative); Leukocyte Esterase Urine Negative (Negative); Nitrite Urine Negative (Negative); UMIC TRIGGER UACC YES; Urine Blood Trace (Negative); Urine Ketones Negative (Negative); Urine Protein Trace mg/dL (Neg-Trace)
[2023-08-09 23:24] LABS: Bacteria Urine None Seen (None Seen); Hyaline Casts Urine 0-2 /LPF (0-2); Squamous Epithelial Cell Urine 0-2 /HPF (0-2); WBC Urine 0-5 /HPF (0-5)
[2023-08-09 23:40] LABS: Creatinine Urine 71.87 mg/dL
--- NOTE | 2023-08-09 23:45 | P.HPHOSP_ITS ---
History of Present Illness Date of Service: 08/09/23 Chief Complaint: Generalized weakness This is a 77-year-old male with pertinent history of AFib on Eliquis, JITENDRA on CPAP, peripheral arterial disease, coronary artery disease, [id number] diabetes mellitus, CKD stage 3, congestive heart failure with reduced ejection fraction, COPD not on home oxygen who presents to the emergency department for evaluation of generalized weakness. Patient states he has been feeling weak for a while now. He presented to the ER yesterday for similar complaints and was discharged home. Patient states he continues to feel weak. He is undergoing a stressful situation because of his who is actively dying at outside facility. Admits poor p.o. intake. No vomiting or diarrhea. Patient also states that he gets dizzy when he tries to stand up. No loss of consciousness. No fever, chills, chest discomfort, palpitations, shortness of breath, abdominal pain, changes in bowel habits. In the emergency department, creatinine found to be elevated. Review of Systems 2 Constitutional: Constitutional: Reports fatigue, Reports lethargy, Reports malaise and Reports poor appetite ENT: Reports dizziness Cardiovascular: Cardiovascular: Reports no additional cardiovascular complaints Respiratory: Respiratory: Reports no additional respiratory complaints Gastrointestinal: Gastrointestinal: Reports no additional gastrointestinal complaints Genitourinary: Genitourinary: Reports no additional male genitourinary complaints Musculoskeletal: Musculoskeletal: Reports no additional musculoskeletal complaints Neurologic: Reports dizziness Endocrine: Endocrine: Reports fatigue [facility] Medical History Cardiomyopathy Cataracts, bilateral Chronic otitis media Peripheral vascular disease Type 2 diabetes mellitus with hyperglycemia Erectile dysfunction Post herpetic neuralgia COPD (chronic obstructive pulmonary disease) Obstructive sleep apnea Rotator cuff tear, left Carotid stenosis Tubular adenoma of colon Hypertension Hypercholesterolemia PVCs (premature ventricular contractions) NICM (nonischemic cardiomyopathy) CAD (coronary artery disease) Family History Father H/O ETOH abuse Hypertension Mother Hypertension Brother Diabetes Brother No problems noted. Sister No problems noted. Sister No problems noted. Surgical History History of cardiac radiofrequency ablation History of colonoscopy History of cataract surgery History of repair of rotator cuff History of cardiac catheterization History of tonsillectomy History of carotid endarterectomy Social History Housing: House Do you presently have visiting nurse or other home services: No Alcohol intake: current Alcohol intake frequency: a few times a month Alcohol type: beer Comment: no instruments used Patient Tobacco Use Status: Never used Tobacco e-Cigarette/Vaping Use: Never Used Second Hand Smoke Exposure: No Advance Directives: No Advance Directives Information Provided: No Advance Directives Date on File: 11/17/21 service: No Current occupational status: employed Cognitive needs: No Hearing needs: Yes Vision needs: Yes Meds Allergies Allergy/AdvReac Type Severity Reaction Status Date / Time lisinopril Allergy Unknown Unknown Verified 08/09/23 20:32 Penicillins [PENICILLINS] Allergy Unknown UNKNOWN Verified 08/09/23 20:32 REACTION-CHILDHOOD ALLERGY Active Medications: Current Medications Sodium Chloride (Ns) 1,000 mls @ 100 mls/hr IVCONT .Q10H MARIA FERNANDA Last Admin: 08/09/23 23:18 Dose: 100 mls/hr Home Medications Medication Instructions Recorded Confirmed Last Taken Type folic acid 400 mcg tablet 0.4 mg PO DAILY 03/12/20 07/04/23 04/29/23 History cholecalciferol (vitamin D3) 25 25 mcg PO DAILY 08/19/21 07/04/23 04/29/23 History mcg (1,000 unit) capsule cyanocobalamin (vitamin B-12) 2,500 mcg PO DAILY 08/19/21 07/04/23 04/29/23 History 2,500 mcg tablet pregabalin 100 mg capsule 100 mg PO TID 09/21/21 07/04/23 04/29/23 History ciclopirox 0.77 % topical cream 1 appl topical BID 03/23/23 07/04/23 04/29/23 History fluticasone propionate 50 2 spray intranasal DAILY PRN 07/04/23 07/04/23 Unknown History mcg/actuation nasal spray,suspension (Flonase Allergy Relief) furosemide 20 mg tablet (Lasix) 40 mg PO DAILY 07/04/23 07/04/23 Unknown History Physical Exam 2 Vital Signs and Narrative: Vital Signs: Last Vital Signs Temp 98.1 F 08/09/23 20:23 Pulse 61 08/09/23 20:23 Resp 18 08/09/23 20:23 BP 108/58 L 08/09/23 20:23 Pulse Ox 97 08/09/23 20:23 O2 Del Method Room Air 08/09/23 20:23 BMI result Body Mass Index 28.2 Elderly male lying in bed in no distress Neck supple, no JVD Irregularly irregular, S1-S2 heard Regular breath sounds bilaterally, no wheezing or crackles appreciated Abdomen soft nontender, no guarding, no rigidity Patient is awake, alert and oriented to self, place, time and person ; no focal motor deficit Psych: Normal mood No pedal edema Results Labs 08/09/23 20:39 08/09/23 20:39 Labs: Laboratory Results - last 24 hr 08/09/23 08/09/23 20:39 23:13 MCV 92.3 MCH 29.9 MCHC 32.4 RDW 17.2 H Plt Count 185 MPV 10.8 Immature Gran % (Auto) 0.4 Neut % (Auto) 65.7 Lymph % (Auto) 16.8 L [place] % (Auto) 10.5 Eos % (Auto) 5.9 H Baso % (Auto) 0.7 Lymph # (Auto) 1.2 [place] # (Auto) 0.7 Eos # (Auto) 0.4 Baso # (Auto) 0.1 Abs Immat Gran (auto) 0.03 Absolute Neuts (auto) 4.6 Absolute Nucleated RBC 0.000 Nucleated RBC % (auto) 0.0 Anion Gap 13 Estim Creat Clear Calc 16.7 Estimated GFR 16 Fasting Glucose 157 H Calcium 9.2 Total Bilirubin 0.3 AST 103 H ALT 40 Alkaline Phosphatase 49 Total Creatine Kinase 106 Total Protein 6.6 Albumin 3.8 Urine Color Yellow Urine Appearance Clear Urine pH 6.0 Ur Specific [place] 1.020 Urine Protein Trace Urine Glucose (UA) >=1000 H Urine Ketones Negative Urine Blood Trace H Urine Nitrite Negative Ur Leukocyte Esterase Negative Urine RBC 3-5 H Urine WBC 0-5 Ur Squamous Epith Cells 0-2 Urine Bacteria None Seen Hyaline Casts 0-2 Ur Random Sodium 79.0 Urine Creatinine 71.87 Imaging Radiologist's Impressions: Impressions Abdomen/Pelvis CT 08/09/23 22:29 IMPRESSION: No hydronephrosis. Gonzalez catheter in the bladder. Diverticulosis of the colon. Fleischner guidelines were followed. Assessment and Plan (1) Acute kidney injury superimposed on chronic kidney disease: Status: Acute Plan This is a 77-year-old male with pertinent history of AFib on Eliquis, JITENDRA on CPAP, peripheral arterial disease, coronary artery disease, gyj-gqefvfv-gglhsbpap diabetes mellitus, CKD stage 3, congestive heart failure with reduced ejection fraction, COPD not on home oxygen who presents to the emergency department for evaluation of generalized weakness. #. CANDI on CKD, likely pre-renal: No obstruction/hydronephrosis on imaging. Resuscitating with IV crsytalloids. Monitor urine output and creatinine. Hold nephrotoxins: ARB, lasix. #. Orthostatic presyncope due to intravascular volume depletion: Resuscitating with IV crystalloids. Repeat orthostatics in a.m. #. Congestive heart failure with reduced EF: Hold lasix, ARB as above #. PAD/CAD: On antiplatelet agent and high intensity statin #. COPD: No exacerbation during admission. Continue home inhaler #. Afib: On eliquis, amiodarone #. Non insulin dependent diabetes milletus: Initiating accuchecks with sliding scale insulin #. JITENDRA: on CPAP at bedtime #. Essential hypertension: Holding losartan as above #. Normocytic anemia: Hemoglobin above transfusion threshold Med rec pending DVT prophylaxis: Real DNR/DNI: Discussed with patient at bedside Admit as inpatient and will require two night minimum hospital stay for close monitoring of kidney function, hemodynamic monitoring (as above), which is not possible in a lesser acute setting. Quality Stroke Does the patient have a stroke diagnosis?: No VTE Prior VTE?: No VTE Risk Level:: Medical - moderate - high VTE Device Contraindication: Treatment Not Indicated VTE Drug Contraindication: N/A - Med Ordered
[2023-08-10] VITALS (11 sets, daily range): BP systolic 121–156; BP diastolic 50–87; PULSE 52–72; RESP 16–20; TEMP 36.1–36.7; O2SAT 93–98
--- NOTE | 2023-08-10 | PC.NURSE ---
this rn and cane feeder placed 16french alaniz cath. pt tolerated well with reported mild discomfort during placement. immediate output of 200ml after insertion. 10ml balloon inflated. IVF infusing
[2023-08-10 00:09] LABS: B Type Natriuretic Peptide 81 pg/mL (<100)
--- NOTE | 2023-08-10 00:38 | PC.NURSE ---
this rn assisted pt with changing into hospital gown, pt repositioned into bed
[2023-08-10 06:24] LABS: MANUAL DIFF FLAG NO
[2023-08-10 06:49] LABS: Anion Gap 13 (12-20); Blood Urea Nitrogen 54 mg/dL (9-16); Calcium 8.9 mg/dL (8.4-10.2); Carbon Dioxide 26 mmol/L (22-29); Chloride 111 mmol/L (96-108); Creatinine Clr Calc Pharmacy 21.2; Estimated Glomerular Filt Rate 21; Glucose Random 96 mg/dL (60-115); Potassium 4.7 mmol/L (3.3-5.1); Sodium 145 mmol/L (135-145)
[2023-08-10 07:03] LABS: Basophils Absolute Auto 0.1 X10*3/uL (0.0-0.2); Basophils Percent Auto 0.8 % (0-2); Eosinophils Absolute Auto 0.5 X10*3/uL (0.0-0.4); Eosinophils Percent Auto 7.7 % (0-4); Hematocrit 33.9 % (42.0-52.0); Hemoglobin 10.8 g/dl (14.0-18.0); Imm Gran Abs Auto 0.02 X10*3/uL (0.00-0.03); Imm Gran Pct Auto 0.3 % (0.0-0.4); Lymphocytes Absolute Auto 1.2 X10*3/uL (1.2-4.9); Lymphocytes Percent Auto 18.1 % (20-40); Mean Corpuscular HGB Conc 31.9 g/dl (31.0-36.0); Mean Corpuscular Volume 94.2 fL (80.0-98.0); Mean Platelet Volume 11.5 fL (9.4-12.4); Monocytes Absolute Auto 0.7 X10*3/uL (0.1-1.2); Monocytes Percent Auto 10.9 % (2-11); Neutrophils Absolute Auto 3.9 x10*3/uL (2.0-8.3); Neutrophils Percent Auto 62.2 % (45-73); Platelet Count 178 X10*3/uL (160-400); Red Cell Distribution Width 17.2 % (11.0-16.0); White Blood Count 6.3 X10*3/uL (4.8-10.8)
[2023-08-10 07:39] LABS: Glucose, Whole Blood 99 mg/dL (60-115)
[2023-08-10] MEDS: 0.9 % Sodium Chloride 1,000 ML 100 ML IVCONT ×2 (07:41→18:34)
--- NOTE | 2023-08-10 11:00 | MHC.CM.PN ---
Met with patient, daughter, Ying and friend Bubba. Patient was living with his . However, she is currently on hospice at [facility]. Ying has been staying with patient. Patient ambulates with a cane and has a Cpap through [facility]. Patient and Ying deny the need for services or rehab at d/c. PCP verified. Copy of HCP obtained from [facility]. IMM explained and signed. Ying will transport patient home when medically stable. Continue to monitor for d/c needs.
--- NOTE | 2023-08-10 11:45 | HO.PM.IMPN ---
Subjective Subjective Date of Service: 08/11/23 Interval History: f/u on CANDI, dehdyration and orthostatic hypotension interval history: overall feesls better, renal function is improving Physical Exam Vital Signs: Vital Signs: Last Vital Signs Temp 97.7 F 08/10/23 07:16 Pulse 63 08/10/23 10:38 Resp 18 08/10/23 07:16 BP 148/55 H 08/10/23 10:38 Pulse Ox 93 08/10/23 07:16 O2 Del Method Room Air 08/10/23 07:16 BMI result Body Mass Index 28.2 General: AO X 3, no acute distress Resp: CTA bilateral CVS: S1,S2,RRR GI: +BS, NT, no distention Skin: No rash Neuro: motor grossly intact Psych: appropriate affect Objective Data Active Medications Acetaminophen (Acetaminophen 325 Mg Tablet) 650 mg PO Q6H PRN PRN Reason: Pain, Mild (Pain Scale 1-3) Apixaban (Apixaban 5 Mg Tablet) 5 mg PO BID [facility] Atorvastatin Calcium (Atorvastatin Calcium 40 Mg Tablet) 40 mg PO DAILY [facility] Cyanocobalamin (Cyanocobalamin (Vitamin B-12) 500 Mcg Tablet) 2,500 mcg PO DAILY [facility] Dextrose (Dextrose 50 % 25 Gm/50 Ml Syringe) 25 gm IVPUSH Q15M PRN; Protocol PRN Reason: per Hypoglycemia Standing Ord. Ezetimibe (Ezetimibe 10 Mg Tablet) 10 mg PO DAILY [facility] Empagliflozin (Empagliflozin 10 Mg Tablet) 10 mg PO DAILY [facility] Fenofibrate (Fenofibrate 160 Mg Tablet) 160 mg PO DAILY [facility] Glucose (Glucose Gel 15 Gm Gel..Gram.) 15 gm PO Q15M PRN; Protocol PRN Reason: per Hypoglycemia Standing Ord. Sodium Chloride (Ns) 1,000 mls @ 100 mls/hr IVCONT .Q10H [facility] Last Admin: 08/10/23 07:41 Dose: 100 mls/hr Documented By: BRIGITTE Insulin Human Lispro (Insulin Lispro 100 Unit/Ml 3 Ml Vial) 0 unit SUBCUT QIDACHS [facility]; Protocol Last Admin: 08/10/23 07:37 Dose: Not Given Documented By: BRIGITTE Non-Admin Reason: No Insulin Coverage Melatonin (Melatonin 3 Mg Tablet) 6 mg PO BEDTIME PRN PRN Reason: Insomnia Metoprolol Tartrate (Metoprolol Tartrate 50 Mg Tablet) 50 mg PO DAILY [facility]; Protocol Non-Formulary Medication (Ciclopirox) 1 appl TOPICAL BID [facility] Non-Formulary Medication (Folic Acid) 0.4 mg PO DAILY [facility] Non-Formulary Medication (Linagliptin [Tradjenta]) 5 mg PO DAILY [facility] Ondansetron HCl (Ondansetron Hcl 4 Mg/2 Ml Vial) 4 mg IVPUSH Q8H PRN PRN Reason: Nausea and Vomiting Pregabalin (Pregabalin 100 Mg Capsule) 100 mg PO TID [facility] Sodium Chloride (0.9 % Sodium Chloride Flush 3 Ml Syringe) 3 ml IVFLUSH QSHIFT [facility] Last Admin: 08/10/23 07:42 Dose: Not Given Documented By: BRIGITTE Non-Admin Reason: IV Running Vitamin D (Cholecalciferol (Vitamin D3) 25 Mcg Tablet) 75 mcg PO MOWEFR@1000 [facility] Labs 08/10/23 04:51 08/11/23 09:13 Labs: Laboratory Results - last 24 hr 08/09/23 08/09/23 08/10/23 20:39 23:13 04:51 MCV 92.3 94.2 MCH 29.9 30.0 MCHC 32.4 31.9 RDW 17.2 H 17.2 H Plt Count 185 178 MPV 10.8 11.5 Immature Gran % (Auto) 0.4 0.3 Neut % (Auto) 65.7 62.2 Lymph % (Auto) 16.8 L 18.1 L [place] % (Auto) 10.5 10.9 Eos % (Auto) 5.9 H 7.7 H Baso % (Auto) 0.7 0.8 Lymph # (Auto) 1.2 1.2 [place] # (Auto) 0.7 0.7 Eos # (Auto) 0.4 0.5 H Baso # (Auto) 0.1 0.1 Abs Immat Gran (auto) 0.03 0.02 Absolute Neuts (auto) 4.6 3.9 Absolute Nucleated RBC 0.000 0.000 Nucleated RBC % (auto) 0.0 0.0 Anion Gap 13 13 Estim Creat Clear Calc 16.7 21.2 Estimated GFR 16 21 POC Glucose Random Glucose 96 Fasting Glucose 157 H Calcium 9.2 8.9 Total Bilirubin 0.3 AST 103 H ALT 40 Alkaline Phosphatase 49 Total Creatine Kinase 106 B-Natriuretic Peptide 81 Total Protein 6.6 Albumin 3.8 Urine Color Yellow Urine Appearance Clear Urine pH 6.0 Ur Specific [place] 1.020 Urine Protein Trace Urine Glucose (UA) >=1000 H Urine Ketones Negative Urine Blood Trace H Urine Nitrite Negative Ur Leukocyte Esterase Negative Urine RBC 3-5 H Urine WBC 0-5 Ur Squamous Epith Cells 0-2 Urine Bacteria None Seen Hyaline Casts 0-2 Ur Random Sodium 79.0 Urine Creatinine 71.87 08/10/23 07:35 MCV MCH MCHC RDW Plt Count MPV Immature Gran % (Auto) Neut % (Auto) Lymph % (Auto) [place] % (Auto) Eos % (Auto) Baso % (Auto) Lymph # (Auto) [place] # (Auto) Eos # (Auto) Baso # (Auto) Abs Immat Gran (auto) Absolute Neuts (auto) Absolute Nucleated RBC Nucleated RBC % (auto) Anion Gap Estim Creat Clear Calc Estimated GFR POC Glucose 99 Random Glucose Fasting Glucose Calcium Total Bilirubin AST ALT Alkaline Phosphatase Total Creatine Kinase B-Natriuretic Peptide Total Protein Albumin Urine Color Urine Appearance Urine pH Ur Specific [place] Urine Protein Urine Glucose (UA) Urine Ketones Urine Blood Urine Nitrite Ur Leukocyte Esterase Urine RBC Urine WBC Ur Squamous Epith Cells Urine Bacteria Hyaline Casts Ur Random Sodium Urine Creatinine Assessment and Plan (1) Acute kidney injury superimposed on chronic kidney disease: Status: Acute (2) CKD (chronic kidney disease): Status: Acute Plan This is a 77-year-old male with pertinent history of AFib on Eliquis, JITENDRA on CPAP, peripheral arterial disease, coronary artery disease, cse-udgoahg-lpwlhndif diabetes mellitus, CKD stage 3, congestive heart failure with reduced ejection fraction, COPD not on home oxygen who presents to the emergency department for evaluation of generalized weakness. CANDI on CKD, likely pre-renal: No obstruction/hydronephrosis on imaging. IVF, hold lasix and ARB , Nephrology following Orthostatic presyncope due to intravascular volume depletion: Repeat ortho following adequate hydration Congestive heart failure with reduced EF: Hold lasix, ARB as above--appear compensated PAD/CAD: On antiplatelet agent and high intensity statin COPD: No exacerbation during admission. Continue home inhaler Chronic Afib: On eliquis, ? on amio Non insulin dependent diabetes milletus, resume jardiance, sliding scale and monitor glucose JITENDRA: on CPAP at bedtime Essential hypertension: Holding losartan as above; if needed add norvasc #. Normocytic anemia likely from anemia of chronic disease: Hemoglobin above transfusion threshold DVT prophylaxis: Real DNR/DNI: Discussed with patient at bedside need for inpatient: CANDI associated with dehydration and syncope and need IVF and close monitoring of of labs Quality Stroke Does the patient have a stroke diagnosis?: No VTE Prior VTE?: No VTE Risk Level:: Medical - moderate - high VTE Device Contraindication: Treatment Not Indicated VTE Drug Contraindication: N/A - Med Ordered
[2023-08-10 12:12] LABS: Glucose, Whole Blood 99 mg/dL (60-115)
[2023-08-10] MEDS: Atorvastatin Calcium 40 MG TABLET PO (12:14)
[2023-08-10] MEDS: Apixaban 5 MG TABLET PO ×2 (12:14→21:43)
[2023-08-10] MEDS: Ezetimibe 10 MG TABLET PO (12:15)
[2023-08-10] MEDS: Fenofibrate 160 MG TABLET PO (12:16)
[2023-08-10] MEDS: Empagliflozin 10 MG TABLET PO (12:16)
[2023-08-10] MEDS: Cyanocobalamin (Vitamin B-12) 500 MCG TABLET 2500 MCG PO (12:17)
[2023-08-10] MEDS: Folic Acid 1 MG TABLET PO (12:56)
--- NOTE | 2023-08-10 13:03 | PC.NURSE ---
Per Pt, pt is no longer taking Metoprolol, Tonya from pharmacy aware.
--- NOTE | 2023-08-10 13:21 | PM.CNNEP ---
History of Present Illness Reason for Consult Consult date: 08/10/23 Reason for consult: CANDI on CKD Chief Complaint Chief complaint: weakness History of Present Illness Narrative: 77-year-old male with AFib on Eliquis, JITENDRA on CPAP, peripheral arterial disease, coronary artery disease, mdu-oatvqvq-pgdxlephe diabetes mellitus, CKD stage 3, congestive heart failure with reduced ejection fraction presented to the emergency department for evaluation of generalized weakness. He has been feeling weak for a while now. He is undergoing a stressful situation because of his who is actively dying at outside facility. Admits poor p.o. intake. No vomiting or diarrhea. Patient also states that he gets dizzy when he tries to stand up. No loss of consciousness. No fever, chills, chest discomfort, palpitations, shortness of breath, abdominal pain, changes in bowel habits. He was found to have CANDI. Nephrology has been consulted to assist in his clinical care during his current hospital stay. Review of Systems Review of Systems Yes all other systems are reviewed and are negative PMFSH Past Medical History Medical History Cardiomyopathy Cataracts, bilateral Chronic otitis media Peripheral vascular disease Type 2 diabetes mellitus with hyperglycemia Erectile dysfunction Post herpetic neuralgia COPD (chronic obstructive pulmonary disease) Obstructive sleep apnea Rotator cuff tear, left Carotid stenosis Tubular adenoma of colon Hypertension Hypercholesterolemia PVCs (premature ventricular contractions) NICM (nonischemic cardiomyopathy) CAD (coronary artery disease) Family History Family History Father H/O ETOH abuse Hypertension Mother Hypertension Brother Diabetes Brother No problems noted. Sister No problems noted. Sister No problems noted. Surgical History Surgical History History of cardiac radiofrequency ablation History of colonoscopy History of cataract surgery History of repair of rotator cuff History of cardiac catheterization History of tonsillectomy History of carotid endarterectomy Social History Social History Housing: House Do you presently have visiting nurse or other home services: No Alcohol intake: current Alcohol intake frequency: holidays/special occasions only Alcohol type: beer Comment: no instruments used Patient Tobacco Use Status: Never used Tobacco e-Cigarette/Vaping Use: Never Used Second Hand Smoke Exposure: No Advance Directives Date on File: 11/17/21 service: No Current occupational status: employed Cognitive needs: No Hearing needs: Yes Vision needs: Yes Meds Allergies Allergy/AdvReac Type Severity Reaction Status Date / Time lisinopril Allergy Unknown Unknown Verified 08/09/23 20:32 Penicillins [PENICILLINS] Allergy Unknown UNKNOWN Verified 08/09/23 20:32 REACTION-CHILDHOOD ALLERGY Active Medications: Current Medications Acetaminophen (Acetaminophen 325 Mg Tablet) 650 mg PO Q6H PRN PRN Reason: Pain, Mild (Pain Scale 1-3) Apixaban (Apixaban 5 Mg Tablet) 5 mg PO BID [facility] Last Admin: 08/10/23 12:14 Dose: 5 mg Atorvastatin Calcium (Atorvastatin Calcium 40 Mg Tablet) 40 mg PO DAILY [facility] Last Admin: 08/10/23 12:14 Dose: 40 mg Cyanocobalamin (Cyanocobalamin (Vitamin B-12) 500 Mcg Tablet) 2,500 mcg PO DAILY [facility] Last Admin: 08/10/23 12:17 Dose: 2,500 mcg Dextrose (Dextrose 50 % 25 Gm/50 Ml Syringe) 25 gm IVPUSH Q15M PRN; Protocol PRN Reason: per Hypoglycemia Standing Ord. Ezetimibe (Ezetimibe 10 Mg Tablet) 10 mg PO DAILY [facility] Last Admin: 08/10/23 12:15 Dose: 10 mg Empagliflozin (Empagliflozin 10 Mg Tablet) 10 mg PO DAILY [facility] Last Admin: 08/10/23 12:16 Dose: 10 mg Fenofibrate (Fenofibrate 160 Mg Tablet) 160 mg PO DAILY [facility] Last Admin: 08/10/23 12:16 Dose: 160 mg Folic Acid (Folic Acid 1 Mg Tablet) 1 mg PO DAILY [facility] Last Admin: 08/10/23 12:56 Dose: 1 mg Glucose (Glucose Gel 15 Gm Gel..Gram.) 15 gm PO Q15M PRN; Protocol PRN Reason: per Hypoglycemia Standing Ord. Sodium Chloride (Ns) 1,000 mls @ 100 mls/hr IVCONT .Q10H [facility] Last Admin: 08/10/23 07:41 Dose: 100 mls/hr Insulin Human Lispro (Insulin Lispro 100 Unit/Ml 3 Ml Vial) 0 unit SUBCUT QIDACHS [facility]; Protocol Last Admin: 08/10/23 13:03 Dose: Not Given Melatonin (Melatonin 3 Mg Tablet) 6 mg PO BEDTIME PRN PRN Reason: Insomnia Non-Formulary Medication (Ciclopirox) 1 appl TOPICAL BID [facility] Non-Formulary Medication (Linagliptin [Tradjenta]) 5 mg PO DAILY [facility] Ondansetron HCl (Ondansetron Hcl 4 Mg/2 Ml Vial) 4 mg IVPUSH Q8H PRN PRN Reason: Nausea and Vomiting Pregabalin (Pregabalin 100 Mg Capsule) 100 mg PO TID [facility] Sodium Chloride (0.9 % Sodium Chloride Flush 3 Ml Syringe) 3 ml IVFLUSH QSHIFT [facility] Last Admin: 08/10/23 07:42 Dose: Not Given Vitamin D (Cholecalciferol (Vitamin D3) 25 Mcg Tablet) 75 mcg PO MOWEFR@1000 [facility] Home Medications Medication Instructions Recorded Confirmed Last Taken Type folic acid 400 mcg tablet 0.4 mg PO DAILY 03/12/20 08/10/23 08/09/23 History cholecalciferol (vitamin D3) 25 75 mcg PO MOWEFR@1000 08/19/21 08/10/23 04/29/23 History mcg (1,000 unit) capsule cyanocobalamin (vitamin B-12) 2,500 mcg PO DAILY 08/19/21 08/10/23 04/29/23 History 2,500 mcg tablet pregabalin 100 mg capsule 100 mg PO TID 09/21/21 08/10/23 08/09/23 History ciclopirox 0.77 % topical cream 1 appl topical BID 03/23/23 08/10/23 08/09/23 History furosemide 20 mg tablet (Lasix) 20 mg PO DAILY 07/04/23 08/10/23 08/09/23 History Physical Exam Vital Signs: Last Vital Signs Temp 97.7 F 08/10/23 07:16 Pulse 63 08/10/23 10:38 Resp 18 08/10/23 07:16 BP 148/55 H 08/10/23 10:38 Pulse Ox 93 08/10/23 07:16 O2 Del Method Room Air 08/10/23 07:16 BMI result Body Mass Index 28.2 Const General: comfortable and no acute distress Orientation/consciousness: patient oriented x3 HEENT Head: Yes normocephalic Mouth: Normal oral and palatal mucosa present Eyes EOM: EOMs intact bilaterally Neck Neck: Yes supple Resp Auscultation: clear to auscultation bilaterally Cardio Jugular venous distension: no JVD Rate: regular rate GI Palpation (GI): Soft to palpation Auscultation: normal bowel sounds General: Yes no CVA tenderness Back/Spine/Pelvis Back: no CVA tenderness Skin General skin exam: no rashes or lesions noted Neuro General: patient oriented x3 and moves all extremities Extrem General: Yes no pedal edema Results Lab Results 08/10/23 04:51 08/10/23 04:51 Lab results: Chemistry 08/09/23 08/10/23 20:39 04:51 Sodium 142 145 Potassium 4.3 4.7 Carbon Dioxide 27 26 BUN 63 H 54 H Creatinine 3.72 H 2.93 H Calcium 9.2 8.9 Hematology 08/09/23 08/10/23 20:39 04:51 WBC 7.0 6.3 Hgb 10.9 L 10.8 L Plt Count 185 178 Urinalysis 08/09/23 23:13 Urine Color Yellow Urine Appearance Clear Urine pH 6.0 Ur Specific [place] 1.020 Urine Protein Trace Urine Glucose (UA) >=1000 H Urine Ketones Negative Urine Blood Trace H Urine Nitrite Negative Ur Leukocyte Esterase Negative Urine RBC 3-5 H Urine WBC 0-5 Ur Squamous Epith Cells 0-2 Hyaline Casts 0-2 Urine Studies 08/09/23 23:13 Urine Creatinine 71.87 Assessment and Plan (1) Acute kidney injury superimposed on chronic kidney disease: Status: Acute Plan Deondre has CANDI due to compromised renal perfusion. He has been having poor oral intake. He has been taking ARB on diuretics. He had been having orthostatic symptoms. He was given IV fluids. His urine output is good. There is no reason to suspect any obstructive uropathy, new acute glomerular or interstitial pathology causing CANDI. He most likely had tubular injury. Hopefully just with continue supportive care his serum creatinine will improve to baseline. There is no indication for any renal replacement therapy. We shall follow him up in the office after discharge for continued care. Procedures Date of Service Date of Service: 08/10/23
--- NOTE | 2023-08-10 13:23 | PHA.MEDREC ---
Pharmacy Consult ? Medication Reconciliation Pharmacy has completed the medication reconciliation.Med rec complete, confimed with Dr Delgado office that metoprolol has been discontinued due to pt having low BP, but he is still supoosed to be taking amiodarone 200 mg once a day. Med list is updated to reflect this.
--- NOTE | 2023-08-10 15:18 | MHC.EDTECH ---
THIS PCT JUST ASSUMED CARE OF PATIENT ,VITALS TAKEN ,PT WAS ASSISTED UNTO BEDSIDE COMMODE THEN BACK TO BED ,CALL VASQUEZ WITHIN PATIENT REACH .
[2023-08-10] MEDS: Amiodarone HCL 200 MG TABLET PO (15:33)
--- NOTE | 2023-08-10 15:34 | PC.NURSE ---
assumed care of patient in overflow unit, patient is alert and oriented, has alaniz cath in place, NS runnining 100ml/hr, IV patent & flushed by this rn. patient got up and used commode, was not able to have a bowel movement but feels like he needs to. patient respirations equal and unlabored, skin dry and intact call miramontes within reach
[2023-08-10] MEDS: Pregabalin 100 MG CAPSULE PO ×2 (15:52→21:43)
[2023-08-10 16:50] LABS: Glucose, Whole Blood 187 mg/dL (60-115)
[2023-08-10] MEDS: Insulin Lispro 100 UNIT/ML 3 ML VIAL SUBCUT (17:18)
[2023-08-10 19:47] LABS: Glucose, Whole Blood 158 mg/dL (60-115)
[2023-08-10 20:55] LABS: Glucose, Whole Blood 114 mg/dL (60-115)
[2023-08-11] MEDS: 0.9 % Sodium Chloride 1,000 ML 100 ML IVCONT (04:01)
[2023-08-11 07:48] LABS: Glucose, Whole Blood 107 mg/dL (60-115)
[2023-08-11] MEDS: 0.9 % Sodium Chloride Flush 3 ML SYRINGE IVFLUSH (08:03)
[2023-08-11] MEDS: Ezetimibe 10 MG TABLET PO (08:20)
[2023-08-11] MEDS: Amiodarone HCL 200 MG TABLET PO (08:29)
[2023-08-11] MEDS: Cyanocobalamin (Vitamin B-12) 500 MCG TABLET 2500 MCG PO (08:29)
[2023-08-11 08:30] VITALS: BP 190/84; PULSE 72
[2023-08-11] MEDS: Fenofibrate 160 MG TABLET PO (08:30)
[2023-08-11] MEDS: Folic Acid 1 MG TABLET PO (08:30)
[2023-08-11] MEDS: Atorvastatin Calcium 40 MG TABLET PO (08:30)
[2023-08-11] MEDS: Pregabalin 100 MG CAPSULE PO (08:30)
[2023-08-11] MEDS: Apixaban 5 MG TABLET PO (08:30)
[2023-08-11] MEDS: Empagliflozin 10 MG TABLET PO (08:30)
[2023-08-11 09:24] VITALS: BP 147/65; PULSE 72; RESP 20; TEMP 36.4; O2SAT 97
[2023-08-11 09:51] LABS: Anion Gap 11 (12-20); Blood Urea Nitrogen 26 mg/dL (9-16); Calcium 9.1 mg/dL (8.4-10.2); Carbon Dioxide 24 mmol/L (22-29); Chloride 111 mmol/L (96-108); Creatinine Clr Calc Pharmacy 35.1; Estimated Glomerular Filt Rate 37; Glucose Random 189 mg/dL (60-115); Sodium 141 mmol/L (135-145)
--- NOTE | 2023-08-11 10:37 | MHC.CM.PN ---
PT TO DC HOME TODAY WITH NO SERVICES FAMILY TO TRANSPORT
--- NOTE | 2023-08-11 10:38 | P.DS_ITS ---
DS: Providers Provider Date of Service: 08/11/23 Date of admission: 08/09/23 23:44 Primary care physician: Elida Siddiqui MD Consults: 08/10/23 08:29 Consult to Nephrology Routine Consulting Provider: [facility] Reason for consultation: Hilario, cod DS: Diagnosis Discharge Diagnosis (1) Acute kidney injury superimposed on chronic kidney disease: Status: Acute (2) CKD (chronic kidney disease): Status: Acute DS: Summary Hospital Course Hospital Course: Admission HP Chief Complaint: Generalized weakness This is a 77-year-old male with pertinent history of AFib on Eliquis, JITENDRA on CPAP, peripheral arterial disease, coronary artery disease, isw-cbvuuud-zcbrzsibv diabetes mellitus, CKD stage 3, congestive heart failure with reduced ejection fraction, COPD not on home oxygen who presents to the emergency department for evaluation of generalized weakness. Patient states he has been feeling weak for a while now. He presented to the ER yesterday for similar complaints and was discharged home. Patient states he continues to feel weak. He is undergoing a stressful situation because of his who is actively dying at outside facility. Admits poor p.o. intake. No vomiting or diarrhea. Patient also states that he gets dizzy when he tries to stand up. No loss of consciousness. No fever, chills, chest discomfort, palpitations, short ness of breath, abdominal pain, changes in bowel habits. In the emergency department, creatinine found to be elevated. Hospital course: He presented with generalized weakness and was found to have yapzf-of-himvmqa kidney disease with orthostatic hypOtension, likely due to dehydration. The worsening renal failure was likely a combination of dehydration and the use of an ARB. Further testing included ultrasound of the kidneys, showing no obstruction. He was admitted and hydrated with IV fluids, with gradual improvement in his renal function, currently with a creatinine of 1.7, down from 3.72 on admission. Following hydration, the patient is feeling better and no longer experiencing orthostatic hypotension. The patient will be discharged home with advice to stop taking valsartan, at least for the time being, and to follow up with his primary care physician and veterans rehabilitation counselor. Norvasc 2.5 mg daily has been added to his regimen for better blood pressure control. A Gonzalez catheter was inserted in the emergency room, which has been removed, and he has no trouble voiding. It is noted that the patient's last night, and he would like to go home to join the his family. Final diagnosis: Acute on chronic kidney disease Orthostatic hypotension Dehydration Time Attestation Discharge Coordination Time (in mins): 37 Quality: Safe Use of Opioids Does Pt have an Active Cancer Diagnosis on the Problem List?: No Quality: Stroke Does the patient have a stroke diagnosis?: No Physical Exam Vital Signs: Vital Signs: Last Vital Signs Temp 97.5 F 08/11/23 09:24 Pulse 72 08/11/23 09:24 Resp 20 08/11/23 09:24 BP 147/65 H 08/11/23 09:24 Pulse Ox 97 08/11/23 09:24 O2 Del Method Room Air 08/11/23 09:24 BMI result Body Mass Index 28.2 General: AO X 3, no acute distress Resp: CTA bilateral CVS: S1,S2,RRR GI: +BS, NT, no distention Skin: No rash Neuro: motor grossly intact Psych: appropriate affect DS: Data Data Completed and Pending Completed studies during hospitalization [Text1]: Procedures Assistance with Respiratory Ventilation, Less than 24 Consecutive Hours, Continuous Positive Airway Pressure (03/23/23) [employer] of Cardiac Rhythm, Single (03/23/23) Ultrasonography of Heart with Aorta, Transesophageal (03/23/23) Labs on day of discharge: Laboratory Results - last 24 hr 08/10/23 08/10/23 08/10/23 12:08 16:44 19:38 Sodium Potassium Chloride Carbon Dioxide Anion Gap BUN Creatinine Estim Creat Clear Calc Estimated GFR POC Glucose 99 187 H 158 H Random Glucose Calcium 08/10/23 08/11/23 08/11/23 20:52 07:37 09:13 Sodium 141 Potassium 5.0 Chloride 111 H Carbon Dioxide 24 Anion Gap 11 L BUN 26 H Creatinine 1.77 H Estim Creat Clear Calc 35.1 Estimated GFR 37 POC Glucose 114 107 Random Glucose 189 H Calcium 9.1 Discharge Plan Discharge Anticipated Discharge Date/Time: 08/11/23 10:31 Patient Disposition: Home, Self-Care Discharge Diagnosis: Acute on chronic kidney disease Referrals: Elida Siddiqui MD [Primary Care Provider] - 1 Week Discharge Medications: Continued (DME) AUTO PAP 6-20 cm H2O humidified AIR See Rx Instructions .Route .MEDSUPPLY Qty: 1 0RF Rx Instructions: As directed Tradjenta 5 mg tablet 5 mg PO DAILY 30 Days Qty: 30 3RF fenofibrate 160 mg tablet 160 mg PO DAILY Qty: 90 3RF Eliquis 5 mg tablet 5 mg PO BID 30 Days Qty: 60 5RF atorvastatin 40 mg tablet 40 mg PO DAILY Qty: 90 3RF Jardiance 10 mg tablet 10 mg PO DAILY Qty: 30 3RF ciclopirox 0.77 % cream 1 appl topical BID cholecalciferol (vitamin D3) 25 mcg (1,000 unit) capsule 75 mcg PO MOWEFR@1000 cyanocobalamin (vitamin B-12) 2,500 mcg tablet 2,500 mcg PO DAILY folic acid 400 mcg tablet 0.4 mg PO DAILY pregabalin 100 mg capsule 100 mg PO TID furosemide [Lasix] 20 mg tablet 20 mg PO DAILY Hold Instructions: Doctor's Order Rx Instructions: Water pill 1 tablet daily amiodarone 200 mg tablet 200 mg PO DAILY Qty: 90 1RF ezetimibe [Zetia] 10 mg tablet 10 mg PO DAILY Qty: 30 5RF Rx Instructions: New cholesterol lower medication -take in addition to your atorvastatin Take 1 tablet daily Discontinued valsartan 40 mg tablet 40 mg PO DAILY 90 Days Qty: 90 3RF Hold Instructions: Doctor's Order Rx Instructions: patient was instructed to hold for last 2 days Discharge Orders: Discharge Order (Routine); Ordered 08/11/23 Ordered By: Nick Mcmanus Diet: Advance to usual diet Activity on Discharge: As tolerated Stand Alone Forms: Patient Portal Discharge page Care Plan Goals: Recovery from renal failure Health Concerns: Acute on chronic kidney disease Plan of Treatment: Continue taking your medications as before except for valsartan which is now discontinue. Norvasc 5 mg daily has been added to her blood pressure medications to control your blood pressure. Assessment: See above Follow-up with your primary care doctor within a week. Call for appointment. Follow up if your kidney doctor as well.
[2023-08-11] MEDS: amLODIPine Besylate 2.5 MG TABLET PO (10:57)
[2023-08-11 11:00] VITALS: BP 125/61; PULSE 65
[2023-08-11 11:24] VITALS: BP 119/56; BP 119/58; PULSE 67; PULSE 73
[2023-08-11 11:35] LABS: Glucose, Whole Blood 222 mg/dL (60-115)
--- NOTE | 2023-08-11 11:45 | P.PNNP_ITS ---
Subjective Subjective Date of Service: 08/11/23 Interval history: Events noted His just diet and wants to go home Creatinine is trending down Physical Exam 2 Vital Signs: Vital Signs: Last Vital Signs Temp 97.5 F 08/11/23 09:24 Pulse 73 08/11/23 11:24 Resp 20 08/11/23 09:24 BP 119/56 L 08/11/23 11:24 Pulse Ox 97 08/11/23 09:24 O2 Del Method Room Air 08/11/23 09:24 BMI result Body Mass Index 28.2 Const: General: comfortable and no acute distress O rientation/consciousness: patient oriented x3 HEENT: Head: Yes normocephalic Mouth: Normal oral and palatal mucosa present Eyes: EOM: EOMs intact bilaterally Neck: Neck: Yes supple Resp: Auscultation: clear to auscultation bilaterally Cardio: Jugular venous distension: no JVD Rate: regular rate GI: Palpation (GI): Soft to palpation Auscultation: normal bowel sounds : General: Yes no CVA tenderness Back/Spine/Pelvis: Back: no CVA tenderness Skin: General skin exam: no rashes or lesions noted Neuro: General: patient oriented x3 and moves all extremities Extrem: General: Yes no pedal edema Objective Data Labs 08/10/23 04:51 08/11/23 09:13 Labs: Laboratory Results - last 24 hr 08/10/23 08/10/23 08/10/23 12:08 16:44 19:38 Sodium Potassium Chloride Carbon Dioxide Anion Gap BUN Creatinine Estim Creat Clear Calc Estimated GFR POC Glucose 99 187 H 158 H Random Glucose Calcium 08/10/23 08/11/23 08/11/23 20:52 07:37 09:13 Sodium 141 Potassium 5.0 Chloride 111 H Carbon Dioxide 24 Anion Gap 11 L BUN 26 H Creatinine 1.77 H Estim Creat Clear Calc 35.1 Estimated GFR 37 POC Glucose 114 107 Random Glucose 189 H Calcium 9.1 08/11/23 11:10 Sodium Potassium Chloride Carbon Dioxide Anion Gap BUN Creatinine Estim Creat Clear Calc Estimated GFR POC Glucose 222 H Random Glucose Calcium Procedures Date of Service Date of Service: 08/11/23 Assessment & Plan Assessment and plan (1) Acute kidney injury superimposed on chronic kidney disease: Status: Acute Plan Deondre has CANDI due to compromised renal perfusion. He has been having poor oral intake. He has been taking ARB on diuretics. He had been having orthostatic symptoms. With IV fluids renal function is improving His urine output is good. There is no reason to suspect any obstructive uropathy, new acute glomerular or interstitial pathology causing CANDI. He most likely had tubular injury. Okay to discontinue IV fluids and discharge him home so that he can attend to his family needs. She will follow up as outpatient and he already has an appointment in the next 7-10 days Time Spent With Patient Time: Total time managing care of this patient today ____ minutes. Progress Note: Quality Stroke Does the patient have a stroke diagnosis?: No
[2023-08-11] MEDS: Insulin Lispro 100 UNIT/ML 3 ML VIAL SUBCUT (12:01)
[2023-08-11 17:39] LABS: Urea, Random Urine 682 mg/dL
== END 2023-08-11 13:53 | disposition home or self-care (01) | DRG 641 ==
LOC: HO.ED 22:01 → HO.EDOVER 23:59 → HO.S3 08-10 19:43
PROVIDERS: Admitting Provider Student in an Organized Health Care Education/Training Program; Emergency Provider Emergency Medicine; PCP Internal Medicine; Visit Provider Internal Medicine
DX: E86.0 Dehydration (principal); I13.0 Hypertensive heart and chronic kidney disease with heart failure and stage 1 through stage 4 chronic kidney disease, or unspecified chronic kidney disease; I50.22 Chronic systolic (congestive) heart failure; N17.9 Acute kidney failure, unspecified; Z66 Do not resuscitate; N18.30 Chronic kidney disease, stage 3 unspecified; I95.1 Orthostatic hypotension; D63.1 Anemia in chronic kidney disease; I25.10 Atherosclerotic heart disease of native coronary artery without angina pectoris; G47.33 Obstructive sleep apnea (adult) (pediatric); J44.9 Chronic obstructive pulmonary disease, unspecified; E11.22 Type 2 diabetes mellitus with diabetic chronic kidney disease; E11.51 Type 2 diabetes mellitus with diabetic peripheral angiopathy without gangrene; I48.91 Unspecified atrial fibrillation; Z79.01 Long term (current) use of anticoagulants; Z79.899 Other long term (current) drug therapy
CPT/HCPCS: 36415; 71045; 74176; 80048; 80053; 81001; 82550; 82570; 82947; 83880; 84300; 84540; 85025; 93005; 94660; 99285; C1758

== ENCOUNTER → 2023-08-09 20:35 | Outpatient (BNV) | payer MEDICARE, SELFPAY | PROVIDERS: Admitting Provider Student in an Organized Health Care Education/Training Program; Emergency Provider Emergency Medicine; PCP Internal Medicine; Visit Provider Internal Medicine Cardiovascular Disease | DX: I48.91 Unspecified atrial fibrillation (principal) | CPT/HCPCS: 93010 ==

== ENCOUNTER → 2023-08-09 23:44 | Outpatient (BNV) | payer MEDICARE, SELFPAY | PROVIDERS: Admitting Provider Student in an Organized Health Care Education/Training Program; Emergency Provider Emergency Medicine; PCP Internal Medicine; Visit Provider Internal Medicine Nephrology | DX: N17.9 Acute kidney failure, unspecified (principal); N18.9 Chronic kidney disease, unspecified | CPT/HCPCS: 99222; 99232 ==

== ENCOUNTER → 2023-08-09 23:44 | Outpatient (BNV) | payer MEDICARE, SELFPAY | PROVIDERS: Admitting Provider Student in an Organized Health Care Education/Training Program; Emergency Provider Emergency Medicine; PCP Internal Medicine; Visit Provider Student in an Organized Health Care Education/Training Program | DX: N17.9 Acute kidney failure, unspecified (principal); N18.9 Chronic kidney disease, unspecified | CPT/HCPCS: 99223; 99233; 99239 ==

== ENCOUNTER 2023-08-23 14:26 | Outpatient (AMB) | payer MEDICARE, SELFPAY ==
[2023-08-23 14:32] VITALS: BP 88/52; PULSE 68; O2SAT 95; BMI 30.5
--- NOTE | 2023-08-23 14:32 | HO.NEPHOV_ITS ---
HPI HPI Comments History of Present Illness Details 77-year-old male with AFib on Eliquis, O SA on CPAP, peripheral arterial disease, coronary artery disease, [id number] diabetes mellitus, CKD stage 3, congestive heart failure with reduced ejection fraction Was recently admitted with acute kidney injury with a serum creatinine of more than 4 mg/dL. Prior to this he was inadvertently taking excessive dose of Lasix. He was supposed to be on 40 mg once a day but he was taking twice a day. During hospitalization diuretics were held he was given IV fluids. Renal function improved in the recent creatinine is 1.9 mg/dL. Currently renal function is close to baseline. He has not on any diuretics. [facility] Medical History Cardiomyopathy Cataracts, bilateral Chronic otitis media Peripheral vascular disease Type 2 diabetes mellitus with hyperglycemia Erectile dysfunction Post herpetic neuralgia COPD (chronic obstructive pulmonary disease) Obstructive sleep apnea Rotator cuff tear, left Carotid stenosis Tubular adenoma of colon Hypertension Hypercholesterolemia PVCs (premature ventricular contractions) NICM (nonischemic cardiomyopathy) CAD (coronary artery disease) Surgical History History of cardiac radiofrequency ablation History of colonoscopy History of cataract surgery History of repair of rotator cuff History of cardiac catheterization History of tonsillectomy History of carotid endarterectomy Family History Father H/O ETOH abuse Hypertension Mother Hypertension Brother Diabetes Brother No problems noted. Sister No problems noted. Sister No problems noted. Social History Household Members: None Housing: House Do you presently have visiting nurse or other home services: No Alcohol intake: current Alcohol intake frequency: holidays/special occasions only Alcohol type: beer Comment: no instruments used Patient Tobacco Use Status: Never used Tobacco e-Cigarette/Vaping Use: Never Used Second Hand Smoke Exposure: No Advance Directives Date on File: 11/17/21 service: No Current occupational status: employed Cognitive needs: No Hearing needs: Yes Vision needs: Yes Vital Signs 08/23/23 14:32 Height 5 ft 6 in Weight 189 lb BMI 30.5 BP 88/52 L Blood Pressure Location Rt brachial Position Sitting Pulse 68 Pulse Source Pulse Oximeter Pulse Oximetry (%) 95 Oxygen Delivery Method Room Air Physical Exam Vital Signs: Last Vital Signs Pulse 68 08/23/23 14:32 BP 88/52 L 08/23/23 14:32 Pulse Ox 95 08/23/23 14:32 Oxygen Delivery Method Room Air 08/23/23 14:32 BMI result Body Mass Index 30.5 Const General: comfortable Nutritional Appearance: well nourished Orientation/consciousness: patient oriented x3 HEENT Head: No normal to inspection Mouth: moist mucous membranes Neck Neck: Yes supple and Yes no JVD Resp Auscultation: clear to auscultation bilaterally, no rales and rub present Cardio Jugular venous distension: no JVD Palpation: no palpable S3 and no palpable S4 Heart sounds: no rubs GI Palpation (GI): Soft to palpation and nontender Percussion: No Fluid wave present General: Yes no CVA tenderness Back/Spine/Pelvis Back: no CVA tenderness Skin General skin exam: no rashes or lesions noted Neuro General: patient oriented x3 Extrem General: No clubbing and Yes pedal edema (Trace) Assessment & Plan Assessment & Plan (1) Acute kidney injury superimposed on chronic kidney disease: Code(s): N17.9 - Acute kidney failure, unspecified; N18.9 - Chronic kidney disease, unspecified Plan Elderly man with acute kidney injury superimposed on chronic kidney disease. Acute kidney injury was primarily due to hypoperfusion from high dose of diuretics and volume depletion. After holding the diuretics and with cautious hydration renal function improved. At present he appears euvolemic. Blood pressure is rather low. I would discontinue amlodipine 2.5 mg q.d.. I have encouraged him to keep watching his blood pressure and weights at home. He is increased his weight or if it develops leg edema I would start him on Lasix 40 mg once a day. Follow-up lab work ordered Orders: Orders Basic Metabolic Panel 08/23/23 N17.9 - Acute kidney failure, unspecified, N18.9 - Chronic kidney disease, unspecified Medications: Discontinued amlodipine Discontinued Reason: Doctor's Order 2.5 mg See Protocol PO DAILY 30 tabs 0RF Coding Level of Care Code Est Pt Level 4 (89689) Diagnoses Acute kidney injury superimposed on chronic kidney disease N17.9; N18.9 Results Reviewed Nephrology Results: Hgb 10.8 g/dl (14.0-18.0) L 08/10/23 WBC 6.3 X10*3/uL (4.8-10.8) 08/10/23 Plt Count 178 X10*3/uL (160-400) 08/10/23 Sodium 141 mmol/L (135-145) 08/11/23 Potassium 5.0 mmol/L (3.3-5.1) 08/11/23 Chloride 111 mmol/L (96-108) H 08/11/23 Carbon Dioxide 24 mmol/L (22-29) 08/11/23 BUN 26 mg/dL (9-16) H 08/11/23 Creatinine 1.77 mg/dL (0.5-1.4) H 08/11/23 Calcium 9.1 mg/dL (8.4-10.2) 08/11/23 Urine Protein Trace mg/dL (Neg-Trace) 08/09/23 Urine Creatinine 71.87 mg/dL 08/09/23
== END 2023-08-23 15:00 | disposition home or self-care (01) ==
PROVIDERS: PCP Internal Medicine; Referring Provider Internal Medicine; Visit Provider Internal Medicine Hypertension Specialist
DX: N17.9 Acute kidney failure, unspecified (principal); N18.9 Chronic kidney disease, unspecified
CPT/HCPCS: 99214

== ENCOUNTER → 2023-08-23 14:26 | Outpatient (BNVA) | payer MEDICARE, SELFPAY | PROVIDERS: PCP Internal Medicine; Referring Provider Internal Medicine; Visit Provider Internal Medicine Hypertension Specialist | DX: N18.9 Chronic kidney disease, unspecified (principal); N17.9 Acute kidney failure, unspecified | CPT/HCPCS: 99212 ==

== ENCOUNTER 2023-08-26 06:24 | Outpatient (REF) | payer MEDICARE, SELFPAY ==
[2023-08-26 07:53] LABS: Anion Gap 10 (12-20); Blood Urea Nitrogen 32 mg/dL (9-16); Calcium 9.3 mg/dL (8.4-10.2); Carbon Dioxide 30 mmol/L (22-29); Chloride 106 mmol/L (96-108); Estimated Glomerular Filt Rate 35; Glucose Random 183 mg/dL (60-115); Sodium 142 mmol/L (135-145)
== END 2023-08-26 06:25 | disposition home or self-care (01) ==
LOC: HO.LAB 06:24
PROVIDERS: PCP Internal Medicine; Visit Provider Internal Medicine Hypertension Specialist
DX: N17.9 Acute kidney failure, unspecified (principal); N18.9 Chronic kidney disease, unspecified
CPT/HCPCS: 36415; 80048

== ENCOUNTER 2023-08-29 11:02 | Outpatient (AMB) | payer MEDICARE, SELFPAY ==
[2023-08-29 11:03] VITALS: BP 132/60; PULSE 56; O2SAT 98
--- NOTE | 2023-08-29 11:03 | MHC.PC.OV ---
Vital Signs 08/29/23 11:03 Height 5 ft 6 in Weight 186 lb 0.8 oz BMI 30.0 BP 132/60 Blood Pressure Location Lt brachial Position Sitting Pulse 56 Pulse Source Pulse Oximeter Pulse Oximetry (%) 98 Oxygen Delivery Method Room Air Intake Visit Reasons: ELISA A fib Brine Purifier Required: No Allergies lisinopril Allergy (Unknown, Verified 08/29/23 11:22) Unknown Penicillins [PENICILLINS] Allergy (Unknown, Verified 08/29/23 11:22) UNKNOWN REACTION-CHILDHOOD ALLERGY Tobacco use date assessed: 08/29/23 Fall risk assessment: No Falls in past year Last assessed Fall Risk: 08/29/23 Dental Screening Dental Screen Date: 05/27/23 HPI ELISA, Brittney fib HPI Details 78-year-old obese male with controlled diabetes mellitus COPD hypertension hypercholesterolemia coronary artery disease obstructive sleep apnea and atrial fibrillation last seen in April 2023. Patient follows up with Nephrology seen in July 2023 for acute kidney injury superimposed on chronic kidney disease due to hypoperfusion from high dose diuretics and volume depletion advised discontinue amlodipine 2.5 mg once a day. Was in the hospital 08/11/2023 due to generalized weakness. Patient's recently just . Poor p.o. intake. Patient just recently had an echocardiogram in June 2023 normal left ventricular ejection fraction 55-60% with grade 1 diastolic dysfunction. Patient also follows up with Pulmonary in June 2023 diagnosis of sleep apnea compliant COPD stable patient has seen Cardiology in May 2023 atrial fibrillation cardioversion February 2023 and recurrent AFib had an EF of 35-40% underwent cardioversion April 2023 [facility] Medical History Cardiomyopathy Cataracts, bilateral Chronic otitis media Peripheral vascular disease Type 2 diabetes mellitus with hyperglycemia Erectile dysfunction Post herpetic neuralgia COPD (chronic obstructive pulmonary disease) Obstructive sleep apnea Rotator cuff tear, left Carotid stenosis Tubular adenoma of colon Hypertension Hypercholesterolemia PVCs (premature ventricular contractions) NICM (nonischemic cardiomyopathy) CAD (coronary artery disease) Surgical History History of cardiac radiofrequency ablation History of colonoscopy History of cataract surgery History of repair of rotator cuff History of cardiac catheterization History of tonsillectomy History of carotid endarterectomy Family History Father H/O ETOH abuse Hypertension Mother Hypertension Brother Diabetes Brother No problems noted. Sister No problems noted. Sister No problems noted. Social History Household Members: None Housing: House Do you presently have visiting nurse or other home services: No Alcohol intake: current Alcohol intake frequency: holidays/special occasions only Alcohol type: beer Comment: no instruments used Patient Tobacco Use Status: Never used Tobacco e-Cigarette/Vaping Use: Never Used Second Hand Smoke Exposure: No Advance Directives Date on File: 11/17/21 service: No Current occupational status: employed Cognitive needs: No Hearing needs: Yes Vision needs: Yes Questionnaire PHQ-9 Over the last 2 weeks, how often have you been bothered by any of the following problems? 1. Little interest or pleasure in doing things: not at all 2. Feeling down, depressed, or hopeless: not at all 3. Trouble falling or staying asleep, or sleeping too much: not at all 4. Feeling tired or having little energy: several days 5. Poor appetite or overeating: not at all 6. Feeling bad about yourself - or that you are a failure or have let yourself or your family down: not at all 7. Trouble concentrating on things, such as reading the newspaper or watching television: not at all 8. Moving or speaking so slowly that other people could have noticed. Or the opposite - being so fidgety or restless that you have been moving around a lot more than usual: not at all 9. Thoughts that you would be better off or of hurting yourself in some way: not at all Total score: 1 Depression Screening Interpretation: Negative Depression Screening Done: Yes 22502 - PHQ-9 Billing: Yes Source: Developed by Drs. Marcos Phan, Holley Encinas, Tk Car and colleagues, with an educational deonte from [employer]. Thrive Questionnaire Date Thrive assessed: 08/10/23 AUDIT C Alcohol Use Questionnaire (AUDIT-C) 1. How often do you have a drink containing alcohol?: 2-3 times a week 2. How many drinks containing alcohol do you have on a typical day when you are drinking?: 1 or 2 3. How often do you have six or more drinks on one occasion?: Never Total Score: 3 RENETTA-7 AMB Questionnaire RENETTA-7 Date RENETTA - 7 assessed: 06/11/22 Source: Developed by Drs. Marcos Phan, Holley Encinas, Tk Car and colleagues, with an educational deonte from [employer]. Physical exam (Primary Care) Vital Signs: Last Vital Signs Pulse 56 08/29/23 11:03 BP 132/60 08/29/23 11:03 Pulse Ox 98 08/29/23 11:03 Oxygen Delivery Method Room Air 08/29/23 11:03 BMI result Body Mass Index 30.0 Tobacco/Smoking Status: Tobacco use Status Tobacco use date assessed 08/29/23 08/29/23 11:04 Patient Tobacco Use Status Never used Tobacco 08/29/23 11:04 e-Cigarette/Vaping Use Never Used 08/29/23 11:04 PHQ-9: PHQ-9 Score PHQ-9: Total score 1 08/29/23 11:28 Depression Screening Interpretation: Negative Thrive Assessment: Date of Thrive Assessment Date Thrive assessed 08/10/23 08/29/23 11:04 Const General: alert; No acute distress Eyes Conjunctivae: conjunctivae normal Resp Auscultation: clear to auscultation bilaterally Cardio Rate: regular rate Rhythm: regular rhythm GI Inspection: Yes normal to inspection Extrem General: Yes normal to inspection and No edema Results AMB Hemoglobin A1c AMB Hemoglobin A1c 7.0 % Last Edit by SHELLEY [place] on 08/29/23 11:28 Results Reviewed Results Reviewed: Laboratory Last Values Hgb A1c (Clinic) 7.0 % (4.0-6.0) H 08/29/23 11:05 Assessment and Plan Assessment & Plan (1) Acute kidney injury: Code(s): N17.9 - Acute kidney failure, unspecified Plan: Presently stable. Control diuretics as needed only (2) Congestive heart failure: Comment: Preserved ejection fraction Code(s): I50.9 - Heart failure, unspecified Plan: Weigh daily recent echocardiogram shows grade 1 diastolic dysfunction with normal ejection fraction. (3) PAF (paroxysmal atrial fibrillation): Comment: Status post cardioversion Code(s): I48.0 - Paroxysmal atrial fibrillation Plan: Continue with amiodarone and anticoagulation. Twice a day year of blood work. (4) JITENDRA on CPAP: Comment: Known case of obstructive sleep apnea since 2017. Has been using CPAP very regularly all this time. REMAINS VERY COMPLIANT, OLD CPAP DEVICE WAS NOT CAPABLE OF TRANSMITTING THE COMPLIANCE DATA. HE HAS THE NEW CPAP MACHINE AND ADVISED TO START USING IT REGULARLY, Code(s): G47.33 - Obstructive sleep apnea (adult) (pediatric); Z99.89 - Dependence on other enabling machines and devices Plan: Continue with CPAP more than 4 hours a night and benefits from this. (5) Type 2 diabetes mellitus with hyperglycemia: Comment: Dr. Hawthorne Code(s): E11.65 - Type 2 diabetes mellitus with hyperglycemia Qualifiers: Diabetes mellitus detention insulin use: without intermediate accountant use Qualified Code(s): E11.65 - Type 2 diabetes mellitus with hyperglycemia Plan: Decrease the amount of carbohydrate intake, pasta, bread, rice and potatoes are all sugar and that is aside from all the sweet stuff, remember that fruits are good but they are Sweet also. Hemoglobin A1c goal of less than 7.0 presently on Jardiance 10 mg once a day and Tradjenta 5 mg once a day (6) COPD (chronic obstructive pulmonary disease): Comment: PATIENT HAS ONLY BORDERLINE OBSTRUCTIVE AIRWAY DISORDER AND DOES NOT REQUIRED TO USE ANY BRONCHODILATOR INHALERS. Code(s): J44.9 - Chronic obstructive pulmonary disease, unspecified Qualifiers: COPD type: emphysema Emphysema type: unspecified Qualified Code(s): J43.9 - Emphysema, unspecified Plan: Stable and follows up with Pulmonary (7) Hypertension: Code(s): I10 - Essential (primary) hypertension Qualifiers: Hypertension type: essential hypertension Qualified Code(s): I10 - Essential (primary) hypertension Plan: Continue with blood pressure medication. Decrease salt intake and exercise blood pressure medication held due to hypotension. (8) Hypercholesterolemia: Code(s): E78.00 - Pure hypercholesterolemia, unspecified Plan: Avoid fried foods, chicken skin, eggs, butter margarine, pastries and meat. Be it pork or beef they have a lot of cholesterol fenofibrate and Zetia and atorvastatin 40 mg once a day (9) CAD (coronary artery disease): Code(s): I25.10 - Atherosclerotic heart disease of [place] coronary artery without angina pectoris Qualifiers: Coronary Disease-Associated Artery/Lesion type: [place] artery [place] vs. transplanted heart: [place] heart Associated angina: without angina Qualified Code(s): I25.10 - Atherosclerotic heart disease of [place] coronary artery without angina pectoris Plan: Control the cholesterol, weight, blood pressure, diabetes on anticoagulation (10) Actinic keratosis: Code(s): L57.0 - Actinic keratosis Orders: Orders AMB Hemoglobin A1c Today E11.65 - Type 2 diabetes mellitus with hyperglycemia Complete Blood Count Auto Diff 3 Months E11.65 - Type 2 diabetes mellitus with hyperglycemia Comprehensive Met. Panel 3 Months E11.65 - Type 2 diabetes mellitus with hyperglycemia Free T4 (Free Thyroxine) 3 Months E11.65 - Type 2 diabetes mellitus with hyperglycemia Ferritin 3 Months E11.65 - Type 2 diabetes mellitus with hyperglycemia Magnesium 3 Months E11.65 - Type 2 diabetes mellitus with hyperglycemia Phosphorus 3 Months E11.65 - Type 2 diabetes mellitus with hyperglycemia Thyroid Stimulating Hormone 3 Months E11.65 - Type 2 diabetes mellitus with hyperglycemia Hemoglobin A1c 3 Months E11.65 - Type 2 diabetes mellitus with hyperglycemia IRON PROFILE 3 Months E11.65 - Type 2 diabetes mellitus with hyperglycemia Vitamin D 25-OH Total 3 Months E11.65 - Type 2 diabetes mellitus with hyperglycemia Lipid Panel 3 Months E11.65 - Type 2 diabetes mellitus with hyperglycemia, E78.00 - Pure hypercholesterolemia, unspecified Vitamin B12 and Folate 3 Months E11.65 - Type 2 diabetes mellitus with hyperglycemia Referrals Dermatology Referral L57.0 - Actinic keratosis Coding Level of Care Code Est Pt Level 4 (66364) Diagnoses Acute kidney injury N17.9 Congestive heart failure I50.9 PAF (paroxysmal atrial fibrillation) I48.0 JITENDRA on CPAP G47.33; Z99.89 Type 2 diabetes mellitus with hyperglycemia, without long-term current use of insulin E11.65 Diabetes mellitus detention insulin use: without detention use Pulmonary emphysema, unspecified emphysema type J43.9 COPD type: emphysema Emphysema type: unspecified Essential hypertension I10 Hypertension type: essential hypertension Hypercholesterolemia E78.00 Coronary artery disease involving [place] coronary artery of [place] heart without angina pectoris I25.10 Coronary Disease-Associated Artery/Lesion type: [place] artery [place] vs. transplanted heart: [place] heart Associated angina: without angina Actinic keratosis L57.0
== END 2023-08-29 12:33 | disposition home or self-care (01) ==
PROVIDERS: PCP Internal Medicine; Visit Provider Internal Medicine
DX: N17.9 Acute kidney failure, unspecified (principal); I50.9 Heart failure, unspecified; I48.0 Paroxysmal atrial fibrillation; E11.65 Type 2 diabetes mellitus with hyperglycemia; J43.9 Emphysema, unspecified; G47.33 Obstructive sleep apnea (adult) (pediatric); Z99.89 Dependence on other enabling machines and devices; I10 Essential (primary) hypertension; E78.00 Pure hypercholesterolemia, unspecified; I25.10 Atherosclerotic heart disease of native coronary artery without angina pectoris; L57.0 Actinic keratosis
CPT/HCPCS: 83036; 99214

== ENCOUNTER 2023-09-28 09:03 | Outpatient (AMB) | payer MEDICARE, SELFPAY ==
[2023-09-28 09:07] VITALS: BP 110/52; PULSE 62; BMI 29.8
--- NOTE | 2023-09-28 09:07 | MHC.OFFVIS ---
Vital Signs 09/28/23 09:07 Height 5 ft 6 in Weight 184 lb 11.958 oz BMI 29.8 BP 110/52 L Blood Pressure Location Lt brachial Position Sitting Pulse 62 Intake Visit Reasons: 4 mth f/up Intake Note: pt states that he is feeling fine. 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 Accompanied by: Self / Same As Patient Allergies lisinopril Allergy (Unknown, Verified 08/29/23 11:22) Unknown Penicillins [PENICILLINS] Allergy (Unknown, Verified 08/29/23 11:22) UNKNOWN REACTION-CHILDHOOD ALLERGY Medication List - Last Reconciled 09/28/23 by Reji Jackson MD amiodarone 200 mg PO DAILY apixaban (Eliquis) 5 mg PO BID 30 days atorvastatin 40 mg PO DAILY [AUTO PAP 6-20 cm H2O humidified AIR As directed] cholecalciferol (vitamin D3) 75 mcg PO MOWEFR@1000 cyanocobalamin (vitamin B-12) 2,500 mcg PO DAILY empagliflozin (Jardiance) 10 mg PO DAILY ezetimibe 10 mg PO DAILY fenofibrate 160 mg PO DAILY folic acid 0.4 mg PO DAILY linagliptin (Tradjenta) 5 mg PO DAILY 30 days pregabalin 100 mg PO TID HPI Comments Details: Pleasant 78-year-old gentleman with known coronary artery disease and previous LAD PCI. He also had PVCs in the past and underwent ablation which was unsuccessful. His ejection fraction was low normal but improved after ablation but interestingly he had PVCs at the time his ejection fraction improved. I do not think he had PVC related cardiomyopathy. He returns for follow-up. On last visit he had a lot of PVCs and recently for Holter monitoring which showed 15,000 PVCs. He is saying his more short of breath and has been noticing shortness of breath when he exerts. This is similar to his anginal symptoms before we did LAD PCI. He does have residual coronary disease and has severe right coronary artery stenosis which we did not revascularize and we decided that if he develops symptom which should treat that. After discussion he was taken for RCA PCI. He was treated with 2 drug-eluting stents in the right coronary artery. His dyspnea did not improve after the RCA PCI. He was started on amiodarone to suppress the PVCs to see if that helps his shortness of breath but he continues to be short of breath. He was sent for PFTs which raise concern for restrictive lung disease and underwent CT chest which showed emphysema and some scarring. He has seen pulmonology and will be following up with them. After his PFT abnormality his amiodarone was stopped. His returning for follow-up today and will be going for spinal cord stimulator for back pain. He has been struggling with back pain for long time and had multiple interventional procedures previously without any significant change in his symptoms. His asking whether he can hold aspirin and Plavix. He has some dyspnea but no big changes in his symptoms. No chest discomfort. Mild peripheral edema as before. 12/22/22: He is here for follow-up. He is complaining that he is more short of breath recently. He has gained 10 lb over the last year. Most of this is abdominal obesity. He has been experiencing some breathing problems when he bends forward. He is also experiencing shortness of breath with activities and feels that things are progressing. He has follow-up with pulmonology previously. No chest discomfort. No symptoms of congestive heart failure. Continues to have back issues and is following with pain management. 02/02/23: Stable at this point. He returns for follow-up. On last visit we discussed and he was referred for exercise stress test. He underwent stress Mibi where he was able to exercise for 5 minutes. Nuclear perfusion imaging showed fixed defect in the inferior wall with differentials of diaphragmatic attenuation versus inferior infarct. He continues to get dyspnea on exertion but has slowed down and he is able to function he and can do what he likes to do. No chest discomfort as before. He is saying that lungs are stable. He has back issues which are also stable. 05/25/2023: In February 2023 he got admitted to [facility] with dyspnea and congestive heart failure. He was in new onset atrial fibrillation and by echocardiography his LVEF was 35-40%. He underwent JOSE JUAN cardioversion which was successful but it appears the next day he developed atrial fibrillation again. He was loaded with amiodarone and underwent repeat cardioversion on 04/29/2023. He is here for follow-up after that. He is saying he has been feeling okay. Breathing is at his baseline. No palpitations at any stage. Taking medications regularly. His only complaint is that he gets dizziness off and on while changing his posture. He has been drinking water and some Gatorade. I have advised him to be careful with Gatorade use. 09/28/23: He returns for follow-up. Unfortunately his in July 2023. He is quite depressed and tearful. He is denying any chest discomfort. He is saying his breathing has been stable. He has been walking outside without any significant issues. Repeat echocardiography has shown normal ejection fraction. Due to bradycardia his metoprolol was discontinued. He has been on amiodarone 200 mg daily. Blood pressure is okay and he has no symptoms currently. He is asking whether apixaban can be changed to some other agent. We discussed about Coumadin but it appears that is difficult for him to monitor. I will send a script for rivaroxaban to see if it is covered better for him in case it is cheaper we will transition him to Xarelto and we will stop the apixaban. [facility] Medical History Cardiomyopathy Cataracts, bilateral Chronic otitis media Peripheral vascular disease Type 2 diabetes mellitus with hyperglycemia Erectile dysfunction Post herpetic neuralgia COPD (chronic obstructive pulmonary disease) Obstructive sleep apnea Rotator cuff tear, left Carotid stenosis Tubular adenoma of colon Hypertension Hypercholesterolemia PVCs (premature ventricular contractions) NICM (nonischemic cardiomyopathy) CAD (coronary artery disease) Surgical History History of cardiac radiofrequency ablation History of colonoscopy History of cataract surgery History of repair of rotator cuff History of cardiac catheterization History of tonsillectomy History of carotid endarterectomy Family History Father H/O ETOH abuse Hypertension Mother Hypertension Brother Diabetes Brother No problems noted. Sister No problems noted. Sister No problems noted. Social History Household Members: None Housing: House Do you presently have visiting nurse or other home services: No Alcohol intake: current Alcohol intake frequency: holidays/special occasions only Alcohol type: beer Comment: no instruments used Patient Tobacco Use Status: Never used Tobacco e-Cigarette/Vaping Use: Never Used Second Hand Smoke Exposure: No Advance Directives Date on File: 11/17/21 service: No Current occupational status: employed Cognitive needs: No Hearing needs: Yes Vision needs: Yes Review of Systems Const Denies chills, Denies fatigue, Denies fever(s), Denies frequent falls, Denies weakness, Denies weight gain and Denies weight loss ENT Denies dizziness Card Denies chest pain, Denies leg edema, Denies lightheadedness, Denies palpitations, Denies dyspnea and Denies dyspnea on exertion Resp Denies cough, Denies dyspnea and Denies dyspnea on exertion GI Denies hematochezia Musc Denies abnormal gait, Denies muscle weakness, Denies numbness, Denies radiating pain into limb and Denies tingling Neuro Denies abnormal gait, Denies dizziness, Denies frequent falls, Denies numbness, Denies tingling and Denies weakness Endo Denies fatigue and Denies palpitations Physical Exam Vital Signs: Last Vital Signs Pulse 62 09/28/23 09:07 BP 110/52 L 09/28/23 09:07 BMI result Body Mass Index 29.8 GENERAL APPEARANCE: in no acute distress, tearful and depressed appearing. NECK/THYROID: no carotid bruit, no jugular venous distention. HEART: no murmurs, regular rate and rhythm, S1, S2 normal. LUNGS: Clear to auscultation. ABDOMEN: normal, bowel sounds present, soft, nontender, nondistended. EXTREMITIES: no clubbing, cyanosis. Mild edema. PERIPHERAL PULSES: equal. NEUROLOGIC: nonfocal, alert and oriented. Office Procedures EKG Details: Sinus rhythm 62 beats per minute, left axis deviation, right bundle-branch block, QRS duration 152 milliseconds, NJ interval 260 milliseconds and QTC 468 milliseconds. [id number], Complete Assessment & Plan Assessment & Plan (1) CAD (coronary artery disease): Code(s): I25.10 - Atherosclerotic heart disease of mentasta coronary artery without angina pectoris Category: Medical Qualifiers: Associated angina: without angina Coronary Disease-Associated Artery/Lesion type: mentasta artery [place] vs. transplanted heart: mentasta heart Qualified Code(s): I25.10 - Atherosclerotic heart disease of mentasta coronary artery without angina pectoris (2) PAF (paroxysmal atrial fibrillation): Comment: Status post cardioversion Code(s): I48.0 - Paroxysmal atrial fibrillation Category: Medical Plan Very pleasant 78-year-old gentleman who is here for follow-up. He has background history of coronary artery disease underwent RCA as well as LAD PCI in the past. We were reassessing him for diagnostic angiography because he was getting some shortness of breath but got admitted to hospital with AFib with RVR and was diagnosed with new onset cardiomyopathy. He was cardioverted and started on amiodarone. He subsequently was noticed to be bradycardic and metoprolol dose was decreased and eventually it was discontinued. He continues to have somewhat slow heart rate but overall has sinus rhythm currently with heart rate in the 60s. He is taking amiodarone regularly. He is denying any dyspnea. I have explained to him that doing repeat angiography currently is not indicated and we can just observe him for symptoms and if there is a change then consider angiography. He is agreeable. He is asking whether there is an alternative for apixaban. We discussed about Coumadin but it appears difficult for him to have close monitoring and visits to Coumadin clinic. I am sending a script for 30 day supply of Xarelto to see if that is cheaper for him. If it is cheaper then he will start taking that and will stop the apixaban. Thank you for allowing me to participate in the care of your patient. Please feel free to contact me if you have any questions. Medications: New rivaroxaban (Xarelto) must administer with evening meal 20 mg PO DAILY 30 tabs 0RF Coding Level of Care Code Est Pt Level 2 (13561) Diagnoses Coronary artery disease involving mentasta coronary artery of mentasta heart without angina pectoris I25.10 Associated angina: without angina Coronary Disease-Associated Artery/Lesion type: mentasta artery [place] vs. transplanted heart: mentasta heart PAF (paroxysmal atrial fibrillation) I48.0 CPT Codes EKG - CPT: [id number], Complete ([id number])
== END 2023-09-28 09:43 | disposition home or self-care (01) ==
PROVIDERS: PCP Internal Medicine; Visit Provider Internal Medicine Cardiovascular Disease
DX: I25.10 Atherosclerotic heart disease of native coronary artery without angina pectoris (principal); I48.0 Paroxysmal atrial fibrillation
CPT/HCPCS: 93010; 99212

== ENCOUNTER → 2023-09-28 09:03 | Outpatient (BNVA) | payer MEDICARE, SELFPAY | PROVIDERS: PCP Internal Medicine; Visit Provider Internal Medicine Cardiovascular Disease | DX: I25.10 Atherosclerotic heart disease of native coronary artery without angina pectoris (principal); I48.0 Paroxysmal atrial fibrillation | CPT/HCPCS: 93005; 99212 ==

== ENCOUNTER 2023-10-26 09:42 | Outpatient (REF) | payer MEDICARE, SELFPAY ==
--- NOTE | ~2023-10-26 | US_ITS ---
EXAMINATION: US EXTRACRANIAL CAROTID DUPLEX, BILATERAL CLINICAL INFORMATION: Disorder of arteries and arterioles. COMPARISON: Carotid ultrasound 10/04/2022. TECHNIQUE: Real-time ultrasound and Doppler techniques (integrating B-mode 2-D vascular images, Doppler spectral analysis and color-flow Doppler imaging) were utilized to interrogate the extracranial carotid arteries, the vertebral arteries and proximal subclavian arteries bilaterally. The degree of stenosis is determined by criteria similar to NASCET. FINDINGS: Right Side: 1. There is moderate atherosclerotic plaque seen in the bifurcation/proximal ICA region. 2. The common carotid artery PSV proximally is 85 cm/s and distally 71 cm/s. 3. The proximal internal carotid artery velocities are 139 cm/s systolic and 48 cm/s diastolic. 4. The proximal external carotid artery PSV is 152 cm/s. 5. The vertebral artery shows antegrade flow. 6. The subclavian artery waveforms are normal. Left Side: 1. There is moderate atherosclerotic plaque seen in the bifurcation/proximal ICA region. 2. The common carotid artery PSV proximally is 102 cm/s and distally 131 cm/s. 3. The proximal internal carotid artery velocities are 151 cm/s systolic and 29 cm/s diastolic. 4. The proximal external carotid artery PSV is 183 cm/s. 5. The vertebral artery shows antegrade flow. 6. The subclavian artery waveforms are normal. US/US carotid duplex BI IMPRESSION: 1. RIGHT: Moderate, hemodynamically significant stenosis of the proximal right internal carotid artery corresponding to a 50-79% stenosis by velocity criteria. 2. LEFT: Moderate, hemodynamically significant stenosis of the proximal left internal carotid artery corresponding to a 50-79% stenosis by velocity criteria. 3. There is no change in the category severity of disease when compared to the previous study dated 10/04/2022.
== END 2023-10-26 09:43 | disposition home or self-care (01) ==
LOC: HO.US 09:42
PROVIDERS: PCP Internal Medicine; Visit Provider Surgery Vascular Surgery
DX: I77.9 Disorder of arteries and arterioles, unspecified (principal); I65.23 Occlusion and stenosis of bilateral carotid arteries
CPT/HCPCS: 93880

== ENCOUNTER 2023-10-31 09:17 | Outpatient (AMB) | payer MEDICARE, SELFPAY ==
[2023-10-31 09:29] VITALS: BP 124/54; PULSE 59; O2SAT 96; BMI 29.7
--- NOTE | 2023-10-31 09:29 | HO.NEPHOV_ITS ---
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 Prior to this he was inadvertently taking excessive dose of Lasix. He was supposed to be on 40 mg once a day but he was taking twice a day. During hospitalization diuretics were held he was given IV fluids. Renal function improved in the recent creatinine is 1.9 mg/dL. Currently renal function is close to baseline. He has not on any diuretics. [facility] Medical History Cardiomyopathy Cataracts, bilateral Chronic otitis media Peripheral vascular disease Type 2 diabetes mellitus with hyperglycemia Erectile dysfunction Post herpetic neuralgia COPD (chronic obstructive pulmonary disease) Obstructive sleep apnea Rotator cuff tear, left Carotid stenosis Tubular adenoma of colon Hypertension Hypercholesterolemia PVCs (premature ventricular contractions) NICM (nonischemic cardiomyopathy) CAD (coronary artery disease) Surgical History History of cardiac radiofrequency ablation History of colonoscopy History of cataract surgery History of repair of rotator cuff History of cardiac catheterization History of tonsillectomy History of carotid endarterectomy Family History Father H/O ETOH abuse Hypertension Mother Hypertension Brother Diabetes Brother No problems noted. Sister No problems noted. Sister No problems noted. Social History Household Members: None Housing: House Do you presently have visiting nurse or other home services: No Alcohol intake: current Alcohol intake frequency: holidays/special occasions only Alcohol type: beer Comment: no instruments used Patient Tobacco Use Status: Never used Tobacco e-Cigarette/Vaping Use: Never Used Second Hand Smoke Exposure: No Advance Directives Date on File: 11/17/21 service: No Current occupational status: employed Cognitive needs: No Hearing needs: Yes Vision needs: Yes Review of Systems Const Denies anorexia, Denies fever(s) and Denies weakness Eyes Denies blurry vision Card Denies no additional complaints and Denies dyspnea Resp Reports no additional complaints, Reports cough and Denies dyspnea GI Denies melena and Denies diarrhea Denies hematuria Musc Denies tingling Skin/Breast Denies rash Neuro Denies focal weakness, Denies tingling, Denies tremor(s) and Denies weakness Physical Exam Vital Signs: Last Vital Signs Pulse 59 10/31/23 09:29 BP 124/54 L 10/31/23 09:29 Pulse Ox 96 10/31/23 09:29 Oxygen Delivery Method Room Air 10/31/23 09:29 BMI result Body Mass Index 29.7 Const General: comfortable Nutritional Appearance: well nourished Orientation/consciousness: patient oriented x3 HEENT Head: No normal to inspection Mouth: moist mucous membranes Neck Neck: Yes supple and Yes no JVD Resp Auscultation: clear to auscultation bilaterally, no rales and rub present Cardio Jugular venous distension: no JVD Palpation: no palpable S3 and no palpable S4 Heart sounds: no rubs GI Palpation (GI): Soft to palpation and nontender Percussion: No Fluid wave present General: Yes no CVA tenderness Back/Spine/Pelvis Back: no CVA tenderness Skin General skin exam: no rashes or lesions noted Neuro General: patient oriented x3 Extrem General: Yes no pedal edema and No clubbing Results Reviewed Nephrology Results: Hgb 10.8 g/dl (14.0-18.0) L 08/10/23 WBC 6.3 X10*3/uL (4.8-10.8) 08/10/23 Plt Count 178 X10*3/uL (160-400) 08/10/23 Sodium 142 mmol/L (135-145) 08/26/23 Potassium 4.0 mmol/L (3.3-5.1) 08/26/23 Chloride 106 mmol/L (96-108) 08/26/23 Carbon Dioxide 30 mmol/L (22-29) H 08/26/23 BUN 32 mg/dL (9-16) H 08/26/23 Creatinine 1.87 mg/dL (0.5-1.4) H 08/26/23 Calcium 9.3 mg/dL (8.4-10.2) 08/26/23 Urine Protein Trace mg/dL (Neg-Trace) 08/09/23 Urine Creatinine 71.87 mg/dL 08/09/23 Assessment & Plan Assessment & Plan (1) CKD (chronic kidney disease) stage 3, GFR 30-59 ml/min: Code(s): N18.30 - Chronic kidney disease, stage 3 unspecified Category: Medical (2) Congestive heart failure: Comment: Preserved ejection fraction Code(s): I50.9 - Heart failure, unspecified Category: Medical (3) Acute kidney injury superimposed on chronic kidney disease: Code(s): N17.9 - Acute kidney failure, unspecified; N18.9 - Chronic kidney disease, unspecified Category: Medical Plan Elderly man with acute kidney injury superimposed on chronic kidney disease. Acute kidney injury was primarily due to hypoperfusion from high dose of diuretics and volume depletion. After holding the diuretics and with cautious hydration renal function improved. At present he appears euvolemic. Blood pressure is accepted I have encouraged him to keep watching his blood pressure and weights at home. Follow-up lab work ordered Orders: Orders Basic Metabolic Panel Today N18.30 - Chronic kidney disease, stage 3 unspecified Complete Blood Count Auto Diff Today N18.30 - Chronic kidney disease, stage 3 unspecified Coding Level of Care Code Est Pt Level 4 (95103) Diagnoses CKD (chronic kidney disease) stage 3, GFR 30-59 ml/min N18.30 Congestive heart failure I50.9 Acute kidney injury superimposed on chronic kidney disease N17.9; N18.9
== END 2023-10-31 09:41 | disposition home or self-care (01) ==
PROVIDERS: PCP Internal Medicine; Visit Provider Internal Medicine Hypertension Specialist
DX: N18.30 Chronic kidney disease, stage 3 unspecified (principal); I50.9 Heart failure, unspecified; N17.9 Acute kidney failure, unspecified; N18.9 Chronic kidney disease, unspecified
CPT/HCPCS: 99214

== ENCOUNTER → 2023-10-31 09:17 | Outpatient (BNVA) | payer MEDICARE, SELFPAY | PROVIDERS: PCP Internal Medicine; Visit Provider Internal Medicine Hypertension Specialist | DX: E11.22 Type 2 diabetes mellitus with diabetic chronic kidney disease (principal); E11.65 Type 2 diabetes mellitus with hyperglycemia; I13.0 Hypertensive heart and chronic kidney disease with heart failure and stage 1 through stage 4 chronic kidney disease, or unspecified chronic kidney disease; N18.30 Chronic kidney disease, stage 3 unspecified; I50.20 Unspecified systolic (congestive) heart failure; N17.9 Acute kidney failure, unspecified | CPT/HCPCS: 36415; 80048; 85025; 99212 ==

== ENCOUNTER 2023-10-31 09:52 | Outpatient (REF) | payer MEDICARE, SELFPAY ==
[2023-10-31 11:01] LABS: MANUAL DIFF FLAG NO
[2023-10-31 11:27] LABS: Anion Gap 12 (12-20); Blood Urea Nitrogen 27 mg/dL (9-16); Calcium 9.5 mg/dL (8.4-10.2); Carbon Dioxide 26 mmol/L (22-29); Chloride 107 mmol/L (96-108); Estimated Glomerular Filt Rate 35; Glucose Random 247 mg/dL (60-115); Potassium 4.4 mmol/L (3.3-5.1); Sodium 141 mmol/L (135-145)
[2023-10-31 11:34] LABS: Basophils Absolute Auto 0.1 X10*3/uL (0.0-0.2); Eosinophils Absolute Auto 0.4 X10*3/uL (0.0-0.4); Eosinophils Percent Auto 6.3 % (0-4); Hematocrit 43.6 % (42.0-52.0); Hemoglobin 13.3 g/dl (14.0-18.0); Imm Gran Abs Auto 0.03 X10*3/uL (0.00-0.03); Imm Gran Pct Auto 0.4 % (0.0-0.4); Lymphocytes Absolute Auto 0.8 X10*3/uL (1.2-4.9); Lymphocytes Percent Auto 11.4 % (20-40); Mean Corpuscular HGB Conc 30.5 g/dl (31.0-36.0); Mean Corpuscular Hemoglobin 29.6 pg (27.0-33.0); Mean Corpuscular Volume 97.1 fL (80.0-98.0); Mean Platelet Volume 11.9 fL (9.4-12.4); Monocytes Absolute Auto 0.6 X10*3/uL (0.1-1.2); Monocytes Percent Auto 8.3 % (2-11); Neutrophils Percent Auto 72.6 % (45-73); Platelet Count 174 X10*3/uL (160-400); Red Blood Count 4.49 X10*6/uL (4.60-5.80); Red Cell Distribution Width 13.4 % (11.0-16.0)
== END 2023-10-31 09:53 | disposition home or self-care (01) ==
LOC: HO.10HDL 09:52
PROVIDERS: Visit Provider Internal Medicine Hypertension Specialist
DX: Z13.89 Encounter for screening for other disorder (principal)
CPT/HCPCS: 36415; 80048; 85025

== ENCOUNTER 2023-11-22 07:38 | Outpatient (REF) | payer MEDICARE, SELFPAY ==
[2023-11-22 10:56] LABS: MANUAL DIFF FLAG NO
[2023-11-22 10:59] LABS: Basophils Absolute Auto 0.1 X10*3/uL (0.0-0.2); Eosinophils Absolute Auto 0.4 X10*3/uL (0.0-0.4); Eosinophils Percent Auto 6.4 % (0-4); Hemoglobin 14.6 g/dl (14.0-18.0); Imm Gran Abs Auto 0.02 X10*3/uL (0.00-0.03); Imm Gran Pct Auto 0.3 % (0.0-0.4); Lymphocytes Percent Auto 14.2 % (20-40); Mean Corpuscular HGB Conc 31.7 g/dl (31.0-36.0); Mean Corpuscular Hemoglobin 29.6 pg (27.0-33.0); Mean Corpuscular Volume 93.1 fL (80.0-98.0); Mean Platelet Volume 11.9 fL (9.4-12.4); Monocytes Absolute Auto 0.5 X10*3/uL (0.1-1.2); Monocytes Percent Auto 7.8 % (2-11); Neutrophils Absolute Auto 4.7 x10*3/uL (2.0-8.3); Neutrophils Percent Auto 70.3 % (45-73); Platelet Count 184 X10*3/uL (160-400); Red Blood Count 4.94 X10*6/uL (4.60-5.80); Red Cell Distribution Width 13.5 % (11.0-16.0); White Blood Count 6.7 X10*3/uL (4.8-10.8)
[2023-11-22 11:09] LABS: Estimated Average Glucose 183 mg/dL
[2023-11-22 11:17] LABS: Alanine Aminotransferase 25 U/L (0-40); Alkaline Phosphatase 67 U/L (39-117); Anion Gap 13 (12-20); Aspartate Amino Transferase 58 U/L (5-37); Bilirubin Total 0.3 mg/dL (0.0-1.0); Blood Urea Nitrogen 29 mg/dL (9-16); Calcium 9.3 mg/dL (8.4-10.2); Carbon Dioxide 28 mmol/L (22-29); Chloride 107 mmol/L (96-108); Cholesterol 124 mg/dL (<200); Estimated Glomerular Filt Rate 40; Glucose Random 144 mg/dL (60-115); HDL Cholesterol 35 mg/dL (>40); Iron 46 mcg/dL (45-160); LDL Cholesterol Calculated 67 mg/dL (<100); Magnesium 2.1 mg/dL (1.6-2.6); Percent Iron Saturation 12 % (15-50); Potassium 4.6 mmol/L (3.3-5.1); Sodium 143 mmol/L (135-145); Total Iron Binding Capacity 370 mcg/dL (228-428); Total Protein 6.8 g/dL (6.5-8.0); Triglycerides 114 mg/dL (<150); Unsaturated Iron Binding 324 ug/dL
[2023-11-22 11:46] LABS: Ferritin 49 ng/mL (20-250); Free T4 (Free Thyroxine) 1.03 ng/dL (0.71-1.85); Vitamin D 25-OH Total 31.5 ng/mL (>30)
[2023-11-22 11:56] LABS: Folate 14.4 ng/mL (> or = 4.0); Vitamin B12 880 pg/mL (200-900)
== END 2023-11-22 07:39 | disposition home or self-care (01) ==
LOC: HO.10HDL 07:38
PROVIDERS: Visit Provider Internal Medicine
DX: E11.65 Type 2 diabetes mellitus with hyperglycemia (principal); E78.00 Pure hypercholesterolemia, unspecified; I65.23 Occlusion and stenosis of bilateral carotid arteries
CPT/HCPCS: 36415; 80053; 80061; 82306; 82607; 82728; 82746; 83036; 83540; 83735; 84100; 84439; 84443; 85025; 99212

== ENCOUNTER 2023-11-22 15:01 | Outpatient (AMB) | payer MEDICARE, SELFPAY ==
--- NOTE | 2023-11-22 15:08 | A.OFFVIS_ITS ---
Vital Signs 11/22/23 15:09 Height 5 ft 6 in Weight 184 lb BMI 29.7 BP 122/66 Blood Pressure Location Rt brachial Position Sitting Intake Visit Reasons: 1 year follow up carotid US 10/26/2023 Intake Note: Patient presents for 1 year follow up. patient here for US done in September. Allergies lisinopril Allergy (Unknown, Verified 11/22/23 15:11) Unknown Penicillins [PENICILLINS] Allergy (Unknown, Verified 11/22/23 15:11) UNKNOWN REACTION-CHILDHOOD ALLERGY HPI HPI 1 year follow up carotid US 10/26/2023: Details: Very pleasant 78-year-old gentleman presents for routine surveillance follow-up regarding his carotids. Has had no interval issues in terms of his carotids. Unfortunately this past July he has lost his . He appears to be doing relatively well otherwise. He does continue to work approximately 2 days a week. Now for surveillance follow-up with ultrasound [facility] Medical History (Updated 11/22/23 @ 15:47 by Davy Jack MD) Cardiomyopathy Cataracts, bilateral Chronic otitis media Peripheral vascular disease Type 2 diabetes mellitus with hyperglycemia Erectile dysfunction Post herpetic neuralgia COPD (chronic obstructive pulmonary disease) Obstructive sleep apnea Rotator cuff tear, left Carotid stenosis Tubular adenoma of colon Hypertension Hypercholesterolemia PVCs (premature ventricular contractions) NICM (nonischemic cardiomyopathy) CAD (coronary artery disease) Surgical History History of cardiac radiofrequency ablation History of colonoscopy History of cataract surgery History of repair of rotator cuff History of cardiac catheterization History of tonsillectomy History of carotid endarterectomy Family History Father H/O ETOH abuse Hypertension Mother Hypertension Brother Diabetes Brother No problems noted. Sister No problems noted. Sister No problems noted. Social History Household Members: None Housing: House Do you presently have visiting nurse or other home services: No Alcohol intake: current Alcohol intake frequency: holidays/special occasions only Alcohol type: beer Comment: no instruments used Patient Tobacco Use Status: Never used Tobacco e-Cigarette/Vaping Use: Never Used Second Hand Smoke Exposure: No Advance Directives Date on File: 11/17/21 service: No Current occupational status: employed Cognitive needs: No Hearing needs: Yes Vision needs: Yes Review of Systems Const All systems reviewed & are unremarkable except as noted in HPI and below Reports no additional complaints ENT Reports Normal hearing present Card Denies chest pain, Denies chest pain at rest, Denies chest pain with activity and Denies pedal edema Resp Denies cough GI Denies abdominal pain Musc Denies abnormal gait, Denies muscle cramps and Denies radiating pain into limb Skin/Breast Denies skin ulcer and Denies wounds Neuro Reports Normal hearing present and Denies abnormal gait Psych Reports no additional complaints Physical Exam Vital Signs: Last Vital Signs BP 122/66 11/22/23 15:09 BMI result Body Mass Index 29.7 Const General: cooperative, healthy appearing and comfortable Orientation/consciousness: oriented to person, oriented to place and oriented to time HEENT Head: Yes normal to inspection Neck Neck: Yes normal visual inspection Carotids: no bruits Chest Chest palpation & inspection: normal inspection of the chest Resp Effort & Inspection: normal respiratory effort and able to speak in complete sentences Auscultation: clear to auscultation bilaterally, no crackles, no rales, no rhonchi and no wheezes Cardio Rate: regular rate Rhythm: regular rhythm Heart sounds: S1 normal heart sound present and S2 normal heart sound present Bruits: no carotid bruits Peripheral pulses: Peripheral pulses 2+ throughout GI Inspection: Yes normal to inspection Skin Wounds: no wounds Hair: normal Neuro General: oriented to person, oriented to place and oriented to time Cranial nerves: Yes CN's II-XII intact bilaterally and Yes Normal hearing present Cognition (Neuro): normal cognition Motor exam (neuro): 5/5 motor strength present throughout Extrem Other: venous exam: No significant superficial varicosities or spider telangiectasias, minimal edema General: No clubbing, No cyanosis and No edema Psych Appearance: grossly normal Mental Status: mental status grossly normal Speech and movement: Normal speech and movement present Results Reviewed Results Reviewed: Carotid testing dated 10/26/2023 demonstrates bilateral 50-79% stenosis with a right of 139 and the left of 151. Written report and images were reviewed. Assessment & Plan Assessment & Plan (1) Bilateral carotid artery disease: Comment: 2011 - right carotid endarterectomy by Dr. Livingston September 2022 Code(s): I77.9 - Disorder of arteries and arterioles, unspecified Category: Medical Qualifiers: Carotid artery disease type: stenosis Qualified Code(s): I65.23 - Occlusion and stenosis of bilateral carotid arteries Plan: In short patient is doing well in terms of his carotids. He will require annual surveillance follow-up. We did discuss routine risk factor modification including diet and exercise. Unfortunately I do not think his diet is as well since his has passed. We did discuss routine of salads and other healthy fruits and vegetables. Once again he will follow up with us in 1 year's time. Thank you for allowing us to assist in his care. If there are any questions or concerns please do not hesitate to contact us Orders: Orders US carotid duplex BI 1 Year I65.29 - Occlusion and stenosis of unspecified carotid artery Coding Level of Care Code Est Pt Level 4 (21088) Diagnoses Bilateral carotid artery stenosis I65.23 Carotid artery disease type: stenosis
[2023-11-22 15:09] VITALS: BP 122/66; BMI 29.7
== END 2023-11-23 08:45 | disposition home or self-care (01) ==
PROVIDERS: PCP Internal Medicine; Visit Provider Surgery Vascular Surgery
DX: I65.23 Occlusion and stenosis of bilateral carotid arteries (principal)
CPT/HCPCS: 99213

== ENCOUNTER 2023-12-06 11:31 | Outpatient (AMB) | payer MEDICARE, SELFPAY ==
[2023-12-06 11:36] VITALS: BP 124/62; PULSE 52; O2SAT 97; BMI 29.4
--- NOTE | 2023-12-06 11:36 | A.OFFPC_ITS ---
Vital Signs 12/06/23 11:36 Height 5 ft 6 in Weight 182 lb BMI 29.4 BP 124/62 Blood Pressure Location Lt brachial Position Sitting Pulse 52 Pulse Source Pulse Oximeter Pulse Oximetry (%) 97 Oxygen Delivery Method Room Air Intake Visit Reasons: CKD afib Allergies lisinopril Allergy (Unknown, Verified 12/06/23 11:37) Unknown Penicillins [PENICILLINS] Allergy (Unknown, Verified 12/06/23 11:37) UNKNOWN REACTION-CHILDHOOD ALLERGY Tobacco use date assessed: 08/29/23 Fall risk assessment: No Falls in past year Last assessed Fall Risk: 12/06/23 Dental Screening Dental Screen Date: 12/06/23 Did you have a dental visit in the last 12 months?: Yes Did you have a dental problem in the last 6 months where you did not have access to dental care?: No Was dental information given to patient?: Patient has dentist HPI CKD afib HPI Details 78-year-old overweight male with a histo ry of congestive heart failure with atrial fibrillation obstructive sleep apnea, diabetes mellitus hypertension hypercholesterolemia coronary artery disease last seen in 08/2023. Review of the notes has been follow-up with vascular surgeon regarding carotid artery stenosis history of having right carotid endarterectomy in 2011. Patient has also seen Nephrology for chronic kidney disease stage 3 patient had been taking excessive dose of Lasix. Patient has also seen Cardiology in September 2023 for the atrial fibrillation has had ablation which is unsuccessful repeat echocardiogram recently normal ejection fraction metoprolol discontinued due bradycardia. Has been on amiodarone 200 mg once a day change anticoagulation from Eliquis to Xarelto [facility] Medical History (Updated 11/22/23 @ 15:47 by Davy Jack MD) Cardiomyopathy Cataracts, bilateral Chronic otitis media Peripheral vascular disease Type 2 diabetes mellitus with hyperglycemia Erectile dysfunction Post herpetic neuralgia COPD (chronic obstructive pulmonary disease) Obstructive sleep apnea Rotator cuff tear, left Carotid stenosis Tubular adenoma of colon Hypertension Hypercholesterolemia PVCs (premature ventricular contractions) NICM (nonischemic cardiomyopathy) CAD (coronary artery disease) Surgical History History of cardiac radiofrequency ablation History of colonoscopy History of cataract surgery History of repair of rotator cuff History of cardiac catheterization History of tonsillectomy History of carotid endarterectomy Family History Father H/O ETOH abuse Hypertension Mother Hypertension Brother Diabetes Brother No problems noted. Sister No problems noted. Sister No problems noted. Social History Household Members: None Housing: House Do you presently have visiting nurse or other home services: No Alcohol intake: current Alcohol intake frequency: holidays/special occasions only Alcohol type: beer Comment: no instruments used Patient Tobacco Use Status: Never used Tobacco e-Cigarette/Vaping Use: Never Used Second Hand Smoke Exposure: No Advance Directives Date on File: 11/17/21 service: No Current occupational status: employed Cognitive needs: No Hearing needs: Yes Vision needs: Yes Questionnaire PHQ-9 Over the last 2 weeks, how often have you been bothered by any of the following problems? 1. Little interest or pleasure in doing things: not at all 2. Feeling down, depressed, or hopeless: not at all 3. Trouble falling or staying asleep, or sleeping too much: not at all 4. Feeling tired or having little energy: several days 5. Poor appetite or overeating: not at all 6. Feeling bad about yourself - or that you are a failure or have let yourself or your family down: not at all 7. Trouble concentrating on things, such as reading the newspaper or watching television: not at all 8. Moving or speaking so slowly that other people could have noticed. Or the opposite - being so fidgety or restless that you have been moving around a lot more than usual: not at all 9. Thoughts that you would be better off or of hurting yourself in some way: not at all Total score: 1 Depression Screening Interpretation: Negative Depression Screening Done: Yes 27309 - PHQ-9 Billing: Yes Source: Developed by Drs. Marcos Phan, Holley Encinas, Tk Car and colleagues, with an educational deonte from [employer]. Thrive Questionnaire Date Thrive assessed: 08/10/23 AUDIT C Alcohol Use Questionnaire (AUDIT-C) 1. How often do you have a drink containing alcohol?: 2-3 times a week 2. How many drinks containing alcohol do you have on a typical day when you are drinking?: 1 or 2 3. How often do you have six or more drinks on one occasion?: Never Total Score: 3 RENETTA-7 AMB Questionnaire RENETTA-7 Date RENETTA - 7 assessed: 12/06/23 Feeling nervous, anxious, or on edge: 0 = Not at all Not being able to stop or control worryin = Not at all Worrying too much about different things: 0 = Not at all Trouble relaxin = Not at all Being so restless that it is hard to sit still: 0 = Not at all Becoming easily annoyed or irritable: 0 = Not at all Feeling afraid as if something awful might happen: 0 = Not at all Total RENETTA-7 score (0-4 normal; 5-9 mild; 10-14 moderate; 15-21 severe): 0 Source: Developed by Drs. Marcos Phan, Holley Encinas, Tk Car and colleagues, with an educational deonte from [employer]. Physical exam (Primary Care) Vital Signs: Last Vital Signs Pulse 52 12/06/23 11:36 BP 124/62 12/06/23 11:36 Pulse Ox 97 12/06/23 11:36 Oxygen Delivery Method Room Air 12/06/23 11:36 BMI result Body Mass Index 29.4 Tobacco/Smoking Status: Tobacco use Status Tobacco use date assessed 08/29/23 12/06/23 11:38 Patient Tobacco Use Status Never used Tobacco 12/06/23 11:38 e-Cigarette/Vaping Use Never Used 12/06/23 11:38 PHQ-9: PHQ-9 Score PHQ-9: Total score 1 12/06/23 11:38 Depression Screening Interpretation: Negative Thrive Assessment: Date of Thrive Assessment Date Thrive assessed 08/10/23 12/06/23 11:38 Const General: alert; No acute distress Eyes Conjunctivae: conjunctivae normal Resp Auscultation: clear to auscultation bilaterally Cardio Rate: regular rate Rhythm: regular rhythm GI Inspection: Yes normal to inspection Extrem General: Yes normal to inspection and No edema Assessment and Plan Assessment & Plan (1) CKD (chronic kidney disease) stage 3, GFR 30-59 ml/min: Code(s): N18.30 - Chronic kidney disease, stage 3 unspecified Plan: Keep well hydrated avoid NSAIDs patient follows up with Nephrology (2) Congestive heart failure: Comment: Preserved ejection fraction Code(s): I50.9 - Heart failure, unspecified Plan: Patient on diuretics weigh daily and continue to monitor renal function (3) PAF (paroxysmal atrial fibrillation): Comment: Status post cardioversion Code(s): I48.0 - Paroxysmal atrial fibrillation Plan: Patient follows up with Cardiology on amiodarone 200 mg once a day discussed about anticoagulation. (4) Bilateral carotid artery disease: Comment: 2011 - right carotid endarterectomy by Dr. Livingston September 2022 Code(s): I77.9 - Disorder of arteries and arterioles, unspecified Qualifiers: Carotid artery disease type: stenosis Qualified Code(s): I65.23 - Occlusion and stenosis of bilateral carotid arteries Plan: Patient follows up with vascular surgeon and on an annual routine surveillance (5) JITENDRA on CPAP: Comment: Known case of obstructive sleep apnea since 2016. Has been using CPAP very regularly all this time. REMAINS VERY COMPLIANT, OLD CPAP DEVICE WAS NOT CAPABLE OF TRANSMITTING THE COMPLIANCE DATA. HE HAS THE NEW CPAP MACHINE AND ADVISED TO START USING IT REGULARLY, Code(s): G47.33 - Obstructive sleep apnea (adult) (pediatric); Z99.89 - Dependence on other enabling machines and devices Plan: Continue to use the CPAP more than 4 hours a night and benefits from the (6) Type 2 diabetes mellitus with hyperglycemia: Comment: Dr. Hawthorne Code(s): E11.65 - Type 2 diabetes mellitus with hyperglycemia Qualifiers: Diabetes mellitus penitentiary insulin use: without penitentiary use Qualified Code(s): E11.65 - Type 2 diabetes mellitus with hyperglycemia Plan: Decrease the amount of carbohydrate intake, pasta, bread, rice and potatoes are all sugar and that is aside from all the sweet stuff, remember that fruits are good but they are Sweet also. Hemoglobin A1c goal of less than 7.0 presently on Jardiance and Tradjenta (7) COPD (chronic obstructive pulmonary disease): Comment: PATIENT HAS ONLY BORDERLINE OBSTRUCTIVE AIRWAY DISORDER AND DOES NOT REQUIRED TO USE ANY BRONCHODILATOR INHALERS. Code(s): J44.9 - Chronic obstructive pulmonary disease, unspecified Qualifiers: COPD type: emphysema Emphysema type: unspecified Qualified Code(s): J43.9 - Emphysema, unspecified Plan: Stable (8) Hypertension: Code(s): I10 - Essential (primary) hypertension Qualifiers: Hypertension type: essential hypertension Qualified Code(s): I10 - Essential (primary) hypertension Plan: Continue with blood pressure medication. Decrease salt intake and exercise blood pressure has been under control with no medication (9) Hypercholesterolemia: Code(s): E78.00 - Pure hypercholesterolemia, unspecified Plan: Avoid fried foods, chicken skin, eggs, butter margarine, pastries and meat. Be it pork or beef they have a lot of cholesterol LDL goal of less than 70 and triglyceride of less than 150 on fenofibrate 160 mg once a day Zetia and atorvastatin 40 mg once a day (10) CAD (coronary artery disease): Code(s): I25.10 - Atherosclerotic heart disease of [place] coronary artery without angina pectoris Qualifiers: Coronary Disease-Associated Artery/Lesion type: [place] artery [place] vs. transplanted heart: [place] heart Associated angina: without angina Qualified Code(s): I25.10 - Atherosclerotic heart disease of [place] coronary artery without angina pectoris Plan: Control the cholesterol, weight, blood pressure, diabetes presently on anticoagulation (11) Post herpetic neuralgia: Code(s): B02.29 - Other postherpetic nervous system involvement Orders: Orders Comprehensive Met. Panel 3 Months N18.30 - Chronic kidney disease, stage 3 unspecified Hemoglobin A1c 3 Months N18.30 - Chronic kidney disease, stage 3 unspecified Complete Blood Count Auto Diff 3 Months N18.30 - Chronic kidney disease, stage 3 unspecified Reticulocyte Count 3 Months N18.30 - Chronic kidney disease, stage 3 unspecified Vitamin B12 and Folate 3 Months N18.30 - Chronic kidney disease, stage 3 unspecified IRON PROFILE 3 Months N18.30 - Chronic kidney disease, stage 3 unspecified Ferritin 3 Months N18.30 - Chronic kidney disease, stage 3 unspecified B Type Natriuretic Peptide 3 Months N18.30 - Chronic kidney disease, stage 3 unspecified Referrals Pain Management Referral B02.29 - Other postherpetic nervous system involvement Medications: Changed From empagliflozin (Jardiance) 10 mg PO DAILY 30 tabs 3RF E11.65 - Type 2 diabetes mellitus with hyperglycemia To empagliflozin 25 mg PO DAILY 90 tabs 1RF E11.65 - Type 2 diabetes mellitus with hyperglycemia Coding Level of Care Code Est Pt Level 4 (32274) Complex EM visit Add On G2211 Diagnoses CKD (chronic kidney disease) stage 3, GFR 30-59 ml/min N18.30 Congestive heart failure I50.9 PAF (paroxysmal atrial fibrillation) I48.0 Bilateral carotid artery stenosis I65.23 Carotid artery disease type: stenosis JITENDRA on CPAP G47.33; Z99.89 Type 2 diabetes mellitus with hyperglycemia, without long-term current use of insulin E11.65 Diabetes mellitus penitentiary insulin use: without penitentiary use Pulmonary emphysema, unspecified emphysema type J43.9 COPD type: emphysema Emphysema type: unspecified Essential hypertension I10 Hypertension type: essential hypertension Hypercholesterolemia E78.00 Coronary artery disease involving [place] coronary artery of [place] heart without angina pectoris I25.10 Coronary Disease-Associated Artery/Lesion type: [place] artery [place] vs. transplanted heart: [place] heart Associated angina: without angina Post herpetic neuralgia B02.29
== END 2023-12-06 12:40 | disposition home or self-care (01) ==
PROVIDERS: PCP Internal Medicine; Visit Provider Internal Medicine
DX: I13.0 Hypertensive heart and chronic kidney disease with heart failure and stage 1 through stage 4 chronic kidney disease, or unspecified chronic kidney disease (principal); N18.30 Chronic kidney disease, stage 3 unspecified; I50.9 Heart failure, unspecified; I48.0 Paroxysmal atrial fibrillation; I65.23 Occlusion and stenosis of bilateral carotid arteries; G47.33 Obstructive sleep apnea (adult) (pediatric); Z99.89 Dependence on other enabling machines and devices; E11.65 Type 2 diabetes mellitus with hyperglycemia; J43.9 Emphysema, unspecified; E78.00 Pure hypercholesterolemia, unspecified; I25.10 Atherosclerotic heart disease of native coronary artery without angina pectoris; B02.29 Other postherpetic nervous system involvement
CPT/HCPCS: 99214; G2211

== ENCOUNTER 2023-12-20 13:01 | Outpatient (AMB) | payer MEDICARE, SELFPAY ==
--- NOTE | 2023-12-20 13:09 | A.OFFVIS_ITS ---
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 He was last seen in our office summer with the plan for SCS implant for a painful post-herpetic neuralgia. Patient had good results with the SCS trial providing him 70-80% pain relief per chart review. Patient reports he had a Stimwave PNS implant placed on 01/2020 at [facility] with multiple program re-adjustments without significant pain improvement. He initially developed right sided shingles rash in 03/2017 in T10-T11 distribution as he shows this today and has persistent and residual burning pain with tingling around his right ribs extending into his right mid-abdomen. Patient reports he lost his in July this year and has been having increased levels of stress and pain. Pain had been worsening over the last year without the recurrence of any new rashes. Patient tried and failed T11-T12 GRACY on 05/02/18, 8% Qutenza patch application on 09/19/18, gabapentin, numerous topical products, CBD oil, lidocaine patches, TENS unit and acupuncture without any benefit. Denies any recent cough, cold, infection, fever, any significant changes in her medical history, medications or recent hospitalizations. Reports mild low back pain without radiation into his lower extremities. Location: Right side of abdomen Duration: Chronic pain for 5 years, shingles in 2017 Characteristics of symptom or complaint: Aching, stabbing, burning, tingling, sharp Aggravating or associated factors: Touch, cold or damp weather Relieving factors: CBD oil, gabapentin, Icyhot, lidocaine, pregabalin 100 mg TID Treatment: Chiroptactor, acupuncture, TENS unit, Stimwave PNS implant [facility] Medical History Cardiomyopathy Cataracts, bilateral Chronic otitis media Peripheral vascular disease Type 2 diabetes mellitus with hyperglycemia Erectile dysfunction Post herpetic neuralgia COPD (chronic obstructive pulmonary disease) Obstructive sleep apnea Rotator cuff tear, left Carotid stenosis Tubular adenoma of colon Hypertension Hypercholesterolemia PVCs (premature ventricular contractions) NICM (nonischemic cardiomyopathy) CAD (coronary artery disease) Surgical History History of cardiac radiofrequency ablation History of colonoscopy History of cataract surgery History of repair of rotator cuff History of cardiac catheterization History of tonsillectomy History of carotid endarterectomy Family History Father H/O ETOH abuse Hypertension Mother Hypertension Brother Diabetes Brother No problems noted. Sister No problems noted. Sister No problems noted. Social History Household Members: None Housing: House Do you presently have visiting nurse or other home services: No Alcohol intake: current Alcohol intake frequency: holidays/special occasions only Alcohol type: beer Comment: no instruments used Patient Tobacco Use Status: Never used Tobacco e-Cigarette/Vaping Use: Never Used Second Hand Smoke Exposure: No Advance Directives Date on File: 11/17/21 service: No Current occupational status: employed Cognitive needs: No Hearing needs: Yes Vision needs: Yes Review of Systems Const All systems reviewed & are unremarkable except as noted in HPI and below Physical Exam Vital Signs: Last Vital Signs Pulse 58 12/20/23 13:15 BP 162/72 H 12/20/23 13:15 Pulse Ox 97 12/20/23 13:15 Oxygen Delivery Method Room Air 12/20/23 13:15 BMI result Body Mass Index 28.2 General: Appears afebrile. Alert and oriented. Mood and affect appropriate. Follows and participates in conversation appropriately. Respiratory effort is unlabored. No cough. Able to transition from sit to stand unassisted. Ambulates with bilaterally normal heel strike and toe off. GI Inspection: Yes normal to inspection, No distended and Yes obesity Palpation (GI): Soft to palpation, nontender and no guarding General: Yes no CVA tenderness Back/Spine/Pelvis Other: Moderate TTP to right T10-T11 dermatomal distribution, wrapping medially to right midclavicular line. Back: no CVA tenderness and No back tenderness Cervical Spine: cervical ROM normal and No Cervical spine tenderness Thoracic/Lumbar Spine: thoracic and lumbar spine normal to inspection, Lasegue's sign negative, straight leg raise negative bilaterally, pain with thoraco- lumbar ROM, No paraspinal muscle tenderness, thoraco-lumbar ROM limited, No thoracic spinal tenderness and No lumbar spinal tenderness Results Reviewed Results Reviewed: CT abdomen pelvis wo IV con 08/09/23 OSSEOUS STRUCTURES: Degenerative changes of the spine. Assessment & Plan Assessment & Plan (1) Post herpetic neuralgia: Code(s): B02.29 - Other postherpetic nervous system involvement Category: Medical (2) Chronic low back pain: Code(s): M54.50 - Low back pain, unspecified; G89.29 - Other chronic pain Category: Medical (3) Spinal cord stimulator status: Code(s): Z96.89 - Presence of other specified functional implants Category: Medical (4) Post herpetic neuralgia: Code(s): B02.29 - Other postherpetic nervous system involvement Category: Medical Plan Thoracic and lumbar spine xrays to assess degenerative changes, any subluxation, listhesis, compression fractures or pars defects and assess lead status of Stimwave PNS implant. Discussed interventional treatments, including right T10-T11 parasagittal GRACY and Intercostal nerve blocks. If it does not have a favorable response, will consider Botox injections. We would also obtain his [facility] records for review prior injections and PNS implant procedure at [facility]. Script sent for Topical capsaicin cream. Discussed side effects and precautions with patient. All questions and concerns have been answered and patient agreed with the plan. Follow up for xray results and sooner as needed. Orders: Orders XR lumbar spine 4V min 12/20/23 B02.29 - Other postherpetic nervous system involvement, G89.29 - Other chronic pain, M54.50 - Low back pain, unspecified, Z96.89 - Presence of other specified functional implants XR thoracic spine 3V 12/20/23 B02.29 - Other postherpetic nervous system involvement, Z96.89 - Presence of other specified functional implants Medications: New capsaicin 0.1% (Arthritis Pain Relief (capsaicin)) do not wash area for at least 30 min after application 1 appl topical TID 60 grams 3RF pain B02.29 - Other postherpetic nervous system involvement Coding Level of Care Code New Pt Level 4 (98742) Diagnoses Post herpetic neuralgia B02.29 Chronic low back pain M54.50; G89.29 Spinal cord stimulator status Z96.89
[2023-12-20 13:15] VITALS: BP 162/72; PULSE 58; O2SAT 97; BMI 28.2
== END 2023-12-20 13:44 | disposition home or self-care (01) ==
PROVIDERS: PCP Internal Medicine; Referring Provider Internal Medicine; Visit Provider Nurse Practitioner Family
DX: B02.29 Other postherpetic nervous system involvement (principal); M54.50 Low back pain, unspecified; G89.29 Other chronic pain; Z96.89 Presence of other specified functional implants
CPT/HCPCS: 99204

== ENCOUNTER 2023-12-20 13:01 | Outpatient (REF) | payer MEDICARE, SELFPAY ==
--- NOTE | ~2023-12-20 | XR_ITS ---
EXAMINATION: XR THORACIC SPINE CLINICAL INFORMATION: Shingles. Pain. COMPARISON: None available. TECHNIQUE: 3 views of the thoracic spine were obtained. FINDINGS: No fracture or bone destruction is seen. The vertebral alignment appears unremarkable. No disc space narrowing is appreciated. No abnormality of the paraspinal soft tissues is seen. Calcification of the aorta and coronary arteries. Status post coronary arterial stent placement. Tip of a metallic lead projects just to the left of midline at T9. XR/XR thoracic spine 3V IMPRESSION: No acute finding.
--- NOTE | ~2023-12-20 | XR_ITS ---
EXAMINATION: XR LUMBOSACRAL SPINE WITH OBLIQUES CLINICAL INFORMATION: Shingles. Pain. COMPARISON: None available. TECHNIQUE: AP, both oblique, and lateral views of the lumbar spine. Lateral view of the lumbosacral junction. FINDINGS: Moderate multilevel disc space narrowing. Facet degenerative change at L2-S1. Mild lumbar dextrocurvature. The vertebral bodies and posterior elements appear unremarkable. Vertebral body heights appear preserved. No evidence of spondylolisthesis. The paraspinal soft tissues appear unremarkable. Heavy vascular calcification XR/XR lumbar spine 4V min IMPRESSION: Degenerative change.
== END 2023-12-20 13:02 | disposition home or self-care (01) ==
LOC: HO.XRAY 13:01
PROVIDERS: PCP Internal Medicine; Referring Provider Internal Medicine; Visit Provider Nurse Practitioner Family
DX: M54.50 Low back pain, unspecified (principal); G89.29 Other chronic pain; B02.29 Other postherpetic nervous system involvement; Z96.89 Presence of other specified functional implants
CPT/HCPCS: 72072; 72110; 99202

== ENCOUNTER 2024-01-02 13:15 | Outpatient (AMB) | payer MEDICARE, SELFPAY ==
--- NOTE | 2024-01-02 13:18 | MHC.OFFVIS ---
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: No Allergies lisinopril Allergy (Unknown, Verified 01/02/24 13:31) Unknown Penicillins [PENICILLINS] Allergy (Unknown, Verified 01/02/24 13:31) UNKNOWN REACTION-CHILDHOOD ALLERGY Medication List - Last Reconciled 01/02/24 by Leelee Willis MD amiodarone 200 mg PO DAILY apixaban (Eliquis) 5 mg PO BID 30 days atorvastatin 40 mg PO DAILY [AUTO PAP 6-20 cm H2O humidified AIR As directed] capsaicin 0.1% (Arthritis Pain Relief (capsaicin)) 1 appl topical TID cholecalciferol (vitamin D3) 75 mcg PO MOWEFR@1000 cyanocobalamin (vitamin B-12) 2,500 mcg PO DAILY empagliflozin 25 mg PO DAILY empagliflozin (Jardiance) 10 mg PO DAILY ezetimibe 10 mg PO DAILY fenofibrate 160 mg PO DAILY folic acid 0.4 mg PO DAILY furosemide 20 mg PO DAILY linagliptin (Tradjenta) 5 mg PO DAILY 30 days pregabalin 100 mg PO TID Do you need a note to return to daycare/school/sports/work: No HPI HPI RLD: Details: THIS 78 YEARS OLD GENTLEMAN IS A CASE OF OBSTRUCTIVE SLEEP APNEA, AND ONLY MILD OBSTRUCTIVE AIRWAY DISORDER. HE USES CPAP VERY REGULARLY, HIS CURRENT CPAP DEVICE IS ONLY 6-MONTH-OLD AND HE CLAIMS THAT IT WORKS GOOD. WE WERE NOT ABLE TO UP LOAD THE CURRENT COMPLIANCE DATA. HE IS ADAMANT THAT HE USES EVERY NIGHT AND AT LEAST FOR 4 HOURS, AND THEN ON SOME NIGHTS MAY PUT THE CPAP ASIDE. HE IS INTERESTED IN GETTING SUPPLIES REGULARLY. BREATHING HAS BEEN GOOD IN FACT HE HAS NOT USED ANY BRONCHODILATOR INHALER AND HE GOES UP AND DOWN STAIRS WITHOUT ANY SHORTNESS OF BREATH. [facility] Medical History Cardiomyopathy Cataracts, bilateral Chronic otitis media Peripheral vascular disease Type 2 diabetes mellitus with hyperglycemia Erectile dysfunction Post herpetic neuralgia COPD (chronic obstructive pulmonary disease) Obstructive sleep apnea Rotator cuff tear, left Carotid stenosis Tubular adenoma of colon Hypertension Hypercholesterolemia PVCs (premature ventricular contractions) NICM (nonischemic cardiomyopathy) CAD (coronary artery disease) Surgical History History of cardiac radiofrequency ablation History of colonoscopy History of cataract surgery History of repair of rotator cuff History of cardiac catheterization History of tonsillectomy History of carotid endarterectomy Family History Father H/O ETOH abuse Hypertension Mother Hypertension Brother Diabetes Brother No problems noted. Sister No problems noted. Sister No problems noted. Social History Household Members: None Housing: House Do you presently have visiting nurse or other home services: No Alcohol intake: current Alcohol intake frequency: holidays/special occasions only Alcohol type: beer Comment: no instruments used Patient Tobacco Use Status: Never used Tobacco e-Cigarette/Vaping Use: Never Used Second Hand Smoke Exposure: No Advance Directives Date on File: 11/17/21 service: No Current occupational status: employed Cognitive needs: No Hearing needs: Yes Vision needs: Yes Review of Systems Const All systems reviewed & are unremarkable except as noted in HPI and below Eyes Reports no additional complaints ENT Reports no additional complaints Card Denies chest pain, Denies irregular heart rhythm, Reports leg edema (Mild) and Reports dyspnea on exertion (Moderate) Resp Denies cough, Reports dyspnea on exertion (Moderate) and Denies wheezing GI Reports no additional complaints Reports no additional complaints Musc Reports no additional complaints Skin/Breast Reports system reviewed and no additional complaints, except as documented Neuro Reports no additional complaints Psych Reports no additional complaints Endo Reports no additional complaints Eliseo/Lymph Reports no additional complaints Aller/Immun Denies wheezing Physical Exam Vital Signs: Last Vital Signs Pulse 66 01/02/24 13:19 BP 102/54 L 01/02/24 13:19 Pulse Ox 95 01/02/24 13:19 Oxygen Delivery Method Room Air 01/02/24 13:19 BMI result Body Mass Index 29.7 Const General: healthy appearing (Except for being overweight), comfortable, no acute distress, alert and awake Orientation/consciousness: patient oriented x3 HEENT Head: Yes normal to inspection General nose exam: No nasal polyps present and No nasal discharge present Face and sinus: Yes sinuses nontender Mouth: oropharynx normal Throat: Yes posterior oropharynx normal Eyes General: appearance normal, both eyes and all related structures Neck Neck: Yes normal visual inspection, Yes no lymphadenopathy, Yes trachea midline and Yes no JVD Thyroid: Thyroid normal Chest Chest palpation & inspection: normal inspection of the chest, normal palpation of entire chest wall and no tenderness Resp Other: Percussion note resonant. Breath sounds are equal on both sides, slightly diminished over the basilar areas. No wheezes or crepitations are heard. Cardio Palpation: normal PMI Rate: regular rate Rhythm: regular rhythm Heart sounds: no gallops and no murmurs Peripheral pulses: Peripheral pulses 2+ throughout GI Palpation (GI): Soft to palpation, nontender, No hepatosplenomegaly present, no masses and Other GI palpation findings present (Abdomen is moderately protuberant.) Auscultation: normal bowel sounds Back/Spine/Pelvis Thoracic/Lumbar Spine: thoracic and lumbar spine normal to inspection Skin General skin exam: no rashes or lesions noted Neuro General: patient oriented x3 and no focal motor deficits Cranial nerves: Yes CN's II-XII intact bilaterally Extrem General: Yes normal to inspection, Yes no calf tenderness and Yes edema (1+ pitting edema of both legs) Psych Appearance: grossly normal and well kempt Speech and movement: Normal speech and movement present Results Reviewed Results Reviewed: CURRENT COMPLIANCE DATA NOT AVAILABLE Assessment & Plan Assessment & Plan (1) Restrictive lung disease: Comment: He has moderate degree of restrictive lung disease, Secondary to, weight gain,( especially abdominal obesity ) and some degree of bibasilar atelectasis. Code(s): J98.4 - Other disorders of lung Category: Medical Plan: ADVISED TO REDUCE WEIGHT. ADVISED TO DO DEEP BREATHING EXERCISES AT LEAST 3 TIMES A DAY . (2) JITENDRA on CPAP: Comment: Known case of obstructive sleep apnea since 2017. Has been using CPAP very regularly all this time. REMAINS VERY COMPLIANT, OLD CPAP DEVICE WAS NOT CAPABLE OF TRANSMITTING THE COMPLIANCE DATA. HE HAS THE NEW CPAP MACHINE AND ADVISED TO START USING IT REGULARLY, WE WERE NOT ABLE TO DOWNLOAD THE COMPLIANCE DATA. BUT ACCORDING TO HIM HE USES EVERY NIGHT FOR AT LEAST 4-5 HOURS PER NIGHT. Code(s): G47.33 - Obstructive sleep apnea (adult) (pediatric); Z99.89 - Dependence on other enabling machines and devices Category: Medical Plan: WILL TRY TO CONTACT DME PROVIDER AND SEE IF WE CAN DOWNLOAD THE COMPLIANCE DATA. HE HAS RECOMMENDED TO USE CPAP EVERY NIGHT FOR AT LEAST 5 HOURS , AND IT WILL BE BETTER IF HE USES 6 HOURS OR MORE. WE WILL SEND ORDER FOR SUPPLIES. Coding Level of Care Code Est Pt Level 3 (83389) Diagnoses Restrictive lung disease J98.4 JITENDRA on CPAP G47.33; Z99.89
[2024-01-02 13:19] VITALS: BP 102/54; PULSE 66; O2SAT 95; BMI 29.7
== END 2024-01-02 13:39 | disposition home or self-care (01) ==
PROVIDERS: PCP Internal Medicine; Visit Provider Internal Medicine
DX: J98.4 Other disorders of lung (principal); G47.33 Obstructive sleep apnea (adult) (pediatric); Z99.89 Dependence on other enabling machines and devices
CPT/HCPCS: 99213

== ENCOUNTER → 2024-01-02 13:15 | Outpatient (BNVA) | payer MEDICARE, SELFPAY | PROVIDERS: PCP Internal Medicine; Visit Provider Internal Medicine | DX: G47.33 Obstructive sleep apnea (adult) (pediatric) (principal); J98.4 Other disorders of lung; Z99.89 Dependence on other enabling machines and devices | CPT/HCPCS: 99212 ==

== ENCOUNTER 2024-02-13 08:58 | Outpatient (AMB) | payer MEDICARE, SELFPAY ==
--- NOTE | 2024-02-13 08:59 | A.OFFVIS_ITS ---
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 Patient continues to endorse neuropathic pain around his right ribs and right mid abdomen pain. He has been in regular contact with [employer] PNS representatives to adjust his programming and obtain more precise brace garmet to keep his device in proper location. Xrays were reviewed today with patient and are noted below. Patient is interested to restart Qutenza patch for PHN prior to injection s. He also reports lower back pain with bending or walking. Denies radicular symptoms to his lower extremities. Denies any recent cough, cold, infection, fever, any significant changes in her medical history, medications or recent hospitalizations. PRIOR: Patient is a pleasant 78 years old male presents today for re-establishing care with our office. He was last seen in our office summer with the plan for SCS implant for a painful post-herpetic neuralgia. Patient had good results with the SCS trial providing him 70-80% pain relief per chart review. Patient reports he had a Stimwave PNS implant placed on 01/2020 at [facility] with multiple program re-adjustments without significant pain improvement. He initially developed right sided shingles rash in 03/2017 in T10-T11 distribution as he shows this today and has persistent and residual burning pain with tingling around his right ribs extending into his right mid-abdomen. Patient reports he lost his in July this year and has been having increased levels of stress and pain. Pain had been worsening over the last year without the recurrence of any new rashes. Patient tried and failed T11-T12 GRACY on 05/02/18, 8% Qutenza patch application on 09/19/18, gabapentin, numerous topical products, CBD oil, lidocaine patches, TENS unit and acupuncture without any benefit. Denies any recent cough, cold, infection, fever, any significant changes in her medical history, medications or recent hospitalizations. Reports mild low back pain without radiation into his lower extremities. Location: Right side of abdomen Duration: Chronic pain for 5 years, shingles in 2017 Characteristics of symptom or complaint: Aching, stabbing, burning, tingling, sharp Aggravating or associated factors: Touch, cold or damp weather Relieving factors: CBD oil, gabapentin, Icyhot, lidocaine, pregabalin 100 mg TID Treatment: Chiroptactor, acupuncture, TENS unit, Stimwave PNS implant [facility] Medical History Cardiomyopathy Cataracts, bilateral Chronic otitis media Peripheral vascular disease Type 2 diabetes mellitus with hyperglycemia Erectile dysfunction Post herpetic neuralgia COPD (chronic obstructive pulmonary disease) Obstructive sleep apnea Rotator cuff tear, left Carotid stenosis Tubular adenoma of colon Hypertension Hypercholesterolemia PVCs (premature ventricular contractions) NICM (nonischemic cardiomyopathy) CAD (coronary artery disease) Surgical History History of cardiac radiofrequency ablation History of colonoscopy History of cataract surgery History of repair of rotator cuff History of cardiac catheterization History of tonsillectomy History of carotid endarterectomy Family History Father H/O ETOH abuse Hypertension Mother Hypertension Brother Diabetes Brother No problems noted. Sister No problems noted. Sister No problems noted. Social History Household Members: None Housing: House Do you presently have visiting nurse or other home services: No Alcohol intake: current Alcohol intake frequency: holidays/special occasions only Alcohol type: beer Comment: no instruments used Patient Tobacco Use Status: Never used Tobacco e-Cigarette/Vaping Use: Never Used Second Hand Smoke Exposure: No Advance Directives Date on File: 11/17/21 service: No Current occupational status: employed Cognitive needs: No Hearing needs: Yes Vision needs: Yes Review of Systems Const All systems reviewed & are unremarkable except as noted in HPI and below Physical Exam Vital Signs: Last Vital Signs Pulse 60 02/13/24 09:03 BP 139/65 02/13/24 09:03 Pulse Ox 97 02/13/24 09:03 Oxygen Delivery Method Room Air 02/13/24 09:03 BMI result Body Mass Index 29.0 General: Appears afebrile. Alert and oriented. Mood and affect appropriate. Follows and participates in conversation appropriately. Respiratory effort is unlabored. No cough. Able to transition from sit to stand unassisted. Ambulates with bilaterally normal heel strike and toe off. GI Inspection: Yes normal to inspection, No distended and Yes obesity Palpation (GI): Soft to palpation, nontender and no guarding General: Yes no CVA tenderness Back/Spine/Pelvis Other: Limited lumbar ROM due to pain. Lumbar flexion, extension and bending forward reproduces mild to moderate pain. Painful facet loading bilaterally. Moderate TTP to right T10-T11 dermatomal distribution, wrapping medially to right midclavicular line. Back: no CVA tenderness and No back tenderness Cervical Spine: cervical ROM normal and No Cervical spine tenderness Thoracic/Lumbar Spine: thoracic and lumbar spine normal to inspection, Thoracic/lumbar spine scar(s), Lasegue's sign negative, straight leg raise negative bilaterally, pain with thoraco-lumbar ROM, No paraspinal muscle tenderness, thoraco-lumbar ROM limited, No thoracic spinal tenderness and lumbar spinal tenderness (L4-S1) Pelvis: no buttock tenderness Sacroiliac joints: bilaterally nontender Results Reviewed Results Reviewed: XR THORACIC SPINE 12/20/23 CLINICAL INFORMATION: Shingles. Pain. FINDINGS: No fracture or bone destruction is seen. The vertebral alignment appears unremarkable. No disc space narrowing is appreciated. No abnormality of the paraspinal soft tissues is seen. Calcification of the aorta and coronary arteries. Status post coronary arterial stent placement. Tip of a metallic lead projects just to the left of midline at T9. IMPRESSION: No acute finding. XR LUMBOSACRAL SPINE WITH OBLIQUES 12/20/23 CLINICAL INFORMATION: Shingles. Pain. FINDINGS: Moderate multilevel disc space narrowing. Facet degenerative change at L2-S1. Mild lumbar dextrocurvature. The vertebral bodies and posterior elements appear unremarkable. Vertebral body heights appear preserved. No evidence of spondylolisthesis. The paraspinal soft tissues appear unremarkable. Heavy vascular calcification IMPRESSION: Degenerative change. Assessment & Plan Assessment & Plan (1) Post herpetic neuralgia: Code(s): B02.29 - Other postherpetic nervous system involvement Category: Medical (2) Chronic low back pain: Code(s): M54.50 - Low back pain, unspecified; G89.29 - Other chronic pain Category: Medical (3) Spinal cord stimulator status: Code(s): Z96.89 - Presence of other specified functional implants Category: Medical (4) Post herpetic neuralgia: Code(s): B02.29 - Other postherpetic nervous system involvement Category: Medical Plan Thoracic and lumbar spine xrays results were discussed today. Will try to arrange topical 8% capsaicin application to his right rib and abdomen pain due to PHN as next step once we have confirmed availability.? If this is not helpful then plan for right T10-T11 parasagittal GRACY and Intercostal nerve blocks. If it does not have a favorable response, will consider Botox injections. Continue pregabalin, monitor for any side effects. All questions and concerns have been answered and patient agreed with the plan. Follow up as needed. Coding Level of Care Code Est Pt Level 4 (11870) Complex EM visit Add On G2211 Diagnoses Post herpetic neuralgia B02.29 Chronic low back pain M54.50; G89.29 Spinal cord stimulator status Z96.89
[2024-02-13 09:03] VITALS: BP 139/65; PULSE 60; O2SAT 97; BMI 29.0
== END 2024-02-13 09:29 | disposition home or self-care (01) ==
PROVIDERS: PCP Internal Medicine; Visit Provider Nurse Practitioner Family
DX: B02.29 Other postherpetic nervous system involvement (principal); M54.50 Low back pain, unspecified; G89.29 Other chronic pain; Z96.89 Presence of other specified functional implants
CPT/HCPCS: 99214; G2211

== ENCOUNTER → 2024-02-13 08:58 | Outpatient (BNVA) | payer MEDICARE, SELFPAY | PROVIDERS: PCP Internal Medicine; Visit Provider Nurse Practitioner Family | DX: B02.29 Other postherpetic nervous system involvement (principal); M54.50 Low back pain, unspecified; G89.29 Other chronic pain; Z96.89 Presence of other specified functional implants | CPT/HCPCS: 99212 ==

== ENCOUNTER 2024-02-27 10:12 | Outpatient (AMB) | payer MEDICARE, SELFPAY ==
[2024-02-27 10:16] VITALS: BP 92/42; PULSE 58; O2SAT 94; BMI 29.4
--- NOTE | 2024-02-27 10:16 | HO.NEPHOV ---
Vital Signs 02/27/24 10:16 Height 5 ft 6 in Weight 182 lb BMI 29.4 BP 92/42 L Blood Pressure Location Rt brachial Position Sitting Pulse 58 Pulse Source Pulse Oximeter Pulse Oximetry (%) 94 Oxygen Delivery Method Room Air Intake Visit Reasons: Acute kidney failure/ 4 MO FU/ Conf Winding Lathe Operator Required: No Accompanied by: Self / Same As Patient Allergies lisinopril Allergy (Unknown, Verified 02/27/24 10:17) Unknown Penicillins [PENICILLINS] Allergy (Unknown, Verified 02/27/24 10:17) UNKNOWN REACTION-CHILDHOOD ALLERGY Medication List - Last Reconciled 02/27/24 by Damián Gillespie MD amiodarone 200 mg PO DAILY apixaban (Eliquis) 5 mg PO BID 30 days atorvastatin 40 mg PO DAILY [AUTO PAP 6-20 cm H2O humidified AIR As directed] capsaicin 0.1% (Arthritis Pain Relief (capsaicin)) 1 appl topical TID cholecalciferol (vitamin D3) 75 mcg PO MOWEFR@1000 cyanocobalamin (vitamin B-12) 2,500 mcg PO DAILY empagliflozin 25 mg PO DAILY empagliflozin (Jardiance) 10 mg PO DAILY ezetimibe 10 mg PO DAILY fenofibrate 160 mg PO DAILY folic acid 0.4 mg PO DAILY furosemide 20 mg PO DAILY linagliptin (Tradjenta) 5 mg PO DAILY 30 days pregabalin 100 mg PO TID HPI Comments Details: 77-year-old male with AFib on Eliquis, JITENDRA on CPAP, peripheral arterial disease, coronary artery disease, sld-avtygul-pdlotgatk diabetes mellitus, CKD stage 3, congestive heart failure with reduced ejection fraction Was recently admitted with acute kidney injury with a serum creatinine of more than 4 mg/dL. Prior to this he was inadvertently taking excessive dose of Lasix. He was supposed to be on 40 mg once a day but he was taking twice a day. During hospitalization diuretics were held he was given IV fluids. Renal function improved in the recent creatinine is 1.9 mg/dL. Currently renal function is close to baseline. He has not on any diuretics. COUNTS INCLUDE 234 BEDS AT THE [facility] Medical History Cardiomyopathy Cataracts, bilateral Chronic otitis media Peripheral vascular disease Type 2 diabetes mellitus with hyperglycemia Erectile dysfunction Post herpetic neuralgia COPD (chronic obstructive pulmonary disease) Obstructive sleep apnea Rotator cuff tear, left Carotid stenosis Tubular adenoma of colon Hypertension Hypercholesterolemia PVCs (premature ventricular contractions) NICM (nonischemic cardiomyopathy) CAD (coronary artery disease) Surgical History History of cardiac radiofrequency ablation History of colonoscopy History of cataract surgery History of repair of rotator cuff History of cardiac catheterization History of tonsillectomy History of carotid endarterectomy Family History Father H/O ETOH abuse Hypertension Mother Hypertension Brother Diabetes Brother No problems noted. Sister No problems noted. Sister No problems noted. Social History Household Members: None Housing: House Do you presently have visiting nurse or other home services: No Alcohol intake: current Alcohol intake frequency: holidays/special occasions only Alcohol type: beer Comment: no instruments used Patient Tobacco Use Status: Never used Tobacco e-Cigarette/Vaping Use: Never Used Second Hand Smoke Exposure: No Advance Directives Date on File: 11/17/21 service: No Current occupational status: employed Cognitive needs: No Hearing needs: Yes Vision needs: Yes Physical Exam Vital Signs: Last Vital Signs Pulse 58 02/27/24 10:16 BP 92/42 L 02/27/24 10:16 Pulse Ox 94 02/27/24 10:16 Oxygen Delivery Method Room Air 02/27/24 10:16 BMI result Body Mass Index 29.4 Results Reviewed Nephrology Results: Hgb 14.6 g/dl (14.0-18.0) 11/22/23 WBC 6.7 X10*3/uL (4.8-10.8) 11/22/23 Plt Count 184 X10*3/uL (160-400) 11/22/23 Sodium 143 mmol/L (135-145) 11/22/23 Potassium 4.6 mmol/L (3.3-5.1) 11/22/23 Chloride 107 mmol/L (96-108) 11/22/23 Carbon Dioxide 28 mmol/L (22-29) 11/22/23 BUN 29 mg/dL (9-16) H 11/22/23 Creatinine 1.65 mg/dL (0.5-1.4) H 11/22/23 Calcium 9.3 mg/dL (8.4-10.2) 11/22/23 Phosphorus 3.0 mg/dL (2.7-4.5) 11/22/23 Assessment & Plan Assessment & Plan (1) CKD (chronic kidney disease) stage 3, GFR 30-59 ml/min: Code(s): N18.30 - Chronic kidney disease, stage 3 unspecified Category: Medical (2) Congestive heart failure: Comment: Preserved ejection fraction Code(s): I50.9 - Heart failure, unspecified Category: Medical (3) Acute kidney injury superimposed on chronic kidney disease: Code(s): N17.9 - Acute kidney failure, unspecified; N18.9 - Chronic kidney disease, unspecified Category: Medical Plan Elderly man with acute kidney injury superimposed on chronic kidney disease. Acute kidney injury was primarily due to hypoperfusion from high dose of diuretics and volume depletion. After holding the diuretics and with cautious hydration renal function improved. At present he appears euvolemic. BP is rather low continue to hold LAsix I have encouraged him to keep watching his blood pressure and weights at home. Follow-up lab work ordered Orders: Orders Basic Metabolic Panel Today N18.30 - Chronic kidney disease, stage 3 unspecified Coding Level of Care Code Est Pt Level 3 (58976) Diagnoses CKD (chronic kidney disease) stage 3, GFR 30-59 ml/min N18.30 Congestive heart failure I50.9 Acute kidney injury superimposed on chronic kidney disease N17.9; N18.9
== END 2024-02-27 10:33 | disposition home or self-care (01) ==
PROVIDERS: PCP Internal Medicine; Visit Provider Internal Medicine Hypertension Specialist
DX: I50.9 Heart failure, unspecified (principal); N17.9 Acute kidney failure, unspecified; E11.22 Type 2 diabetes mellitus with diabetic chronic kidney disease; N18.30 Chronic kidney disease, stage 3 unspecified
CPT/HCPCS: 99213

== ENCOUNTER 2024-02-27 10:12 | Outpatient (REF) | payer MEDICARE, SELFPAY ==
[2024-02-27 12:44] LABS: Anion Gap 10 (12-20); Blood Urea Nitrogen 23 mg/dL (9-16); Calcium 9.9 mg/dL (8.4-10.2); Carbon Dioxide 29 mmol/L (22-29); Chloride 109 mmol/L (96-108); Estimated Glomerular Filt Rate 38; Glucose Random 134 mg/dL (60-115); Potassium 4.8 mmol/L (3.3-5.1); Sodium 143 mmol/L (135-145)
== END 2024-02-27 10:13 | disposition home or self-care (01) ==
LOC: HO.LAB 10:12
PROVIDERS: PCP Internal Medicine; Visit Provider Internal Medicine Hypertension Specialist
DX: N18.30 Chronic kidney disease, stage 3 unspecified (principal); I50.9 Heart failure, unspecified; N17.9 Acute kidney failure, unspecified
CPT/HCPCS: 36415; 80048; 99212

== ENCOUNTER 2024-03-23 10:20 | Outpatient (AMB) | payer MEDICARE, SELFPAY ==
--- NOTE | 2024-03-23 10:58 | AM.OFFVISNUR ---
Intake Visit Reasons: Flu shot Allergies lisinopril Allergy (Unknown, Verified 02/27/24 10:17) Unknown Penicillins [PENICILLINS] Allergy (Unknown, Verified 02/27/24 10:17) UNKNOWN REACTION-CHILDHOOD ALLERGY Office Procedures Flu Questionnaire Does the patient have a severe egg allergy?: No Does the patient have severe life threatening allergies?: No Does the patient have a fever or illness today?: No Has the patient ever had Guillain-Bainbridge Syndrome?: No Has the patient ever had any past reaction to a flu shot?: No Assessment & Plan Assessment & Plan Orders: Orders Influenza [id number] Immunization Today Z23 - Encounter for immunization Medications: New Fluarix Triv [id number] (PF) (flu vacc [id number] 6mos up(PF)) 0.5 mL IM ONCE 0.5 mL 0RF NS Z23 - Encounter for immunization
== END 2024-03-23 11:00 | disposition home or self-care (01) ==
PROVIDERS: PCP Internal Medicine; Visit Provider Internal Medicine
DX: Z23 Encounter for immunization (principal)

== ENCOUNTER → 2024-03-23 10:20 | Outpatient (BNVA) | payer MEDICARE, SELFPAY | PROVIDERS: PCP Internal Medicine; Visit Provider Internal Medicine | DX: Z23 Encounter for immunization (principal) | CPT/HCPCS: 90471; 90656 ==

== ENCOUNTER 2024-03-26 09:53 | Outpatient (AMB) | payer MEDICARE, SELFPAY ==
--- NOTE | 2024-03-26 09:55 | A.OFFVIS_ITS ---
Vital Signs 03/26/24 09:59 03/26/24 10:34 03/26/24 10:37 03/26/24 11:14 Height 5 ft 6 in Weight 180 lb BMI 29.0 BP 156/70 H 84/47 L 132/63 149/65 H Blood Pressure Location Rt brachial Lt brachial Lt brachial Lt brachial Position Sitting Sitting Sitting Sitting Respiration 16 Pulse 61 55 58 58 Pulse Source Pulse Oximeter Pulse Oximeter Pulse Oximeter Pulse Oximeter Pulse Oximetry (%) 98 96 95 96 Oxygen Delivery Method Room Air Room Air Room Air Room Air Comment 15 mins after qutenza application 30 mins after qutenza application 60 mins after qutenza application Intake Visit Reasons: 1st Qutenza Intake Note: Pain today 07/09 Rn Hemo Dialysis Required: No Accompanied by: Self / Same As Patient Allergies lisinopril Allergy (Unknown, Verified 03/26/24 10:00) Unknown Penicillins [PENICILLINS] Allergy (Unknown, Verified 03/26/24 10:00) UNKNOWN REACTION-CHILDHOOD ALLERGY HPI Comments Details: Patient presents for 1st application of capsaicin 8% topical patch for ongoing post herpetic neuralgia in the T10-T11 distribution on the right side. Denies any recent cough, cold, infection, fever or other significant changes in medical history since last office visit. PRIOR: Patient presents today to discuss thoracic and lumbar x-ray results. Patient continues to endorse neuropathic pain around his right ribs and right mid abdomen pain. He has been in regular contact with [employer] representatives to adjust his programming and obtain more precise brace garmet to keep his device in proper location. Xrays were reviewed today with patient and are noted below. Patient is interested to restart Qutenza patch for PHN prior to injections. He also reports lower back pain with bending or walking. Denies radicular symptoms to his lower extremities. Denies any recent cough, cold, infection, fever, any significant changes in her medical history, medications or recent hospitalizations. PRIOR: Patient is a pleasant 78 years old male presents today for re-establishing care with our office. He was last seen in our office summer with the plan for SCS implant for a painful post-herpetic neuralgia. Patient had good results with the SCS trial providing him 70-80% pain relief per chart review. Patient reports he had a Stim[employer] PNS implant placed on 01/2020 at [facility] [place] [place] [facility] with multiple program re-adjustments without significant pain improvement. He initially developed right sided shingles rash in 03/2017 in T10-T11 distribution as he shows this today and has persistent and residual burning pain with tingling around his right ribs extending into his right mid-abdomen. Patient reports he lost his in July this year and has been having increased levels of stress and pain. Pain had been worsening over the last year without the recurrence of any new rashes. Patient tried and failed T11-T12 GRACY on 05/02/18, 8% Qutenza patch application on 09/19/18, gabapentin, numerous topical products, CBD oil, lidocaine patches, TENS unit and acupuncture without any benefit. Denies any recent cough, cold, infection, fever, any significant changes in her medical history, medications or recent hospitalizations. Reports mild low back pain without radiation into his lower extremities. Location: Right side of abdomen Duration: Chronic pain for 5 years, shingles in 2016 Characteristics of symptom or complaint: Aching, stabbing, burning, tingling, sharp Aggravating or associated factors: Touch, cold or damp weather Relieving factors: CBD oil, gabapentin, Icyhot, lidocaine, pregabalin 100 mg TID Treatment: Chiroptactor, acupuncture, TENS unit, Stim[employer] PNS implant [facility] Medical History Cardiomyopathy Cataracts, bilateral Chronic otitis media Peripheral vascular disease Type 2 diabetes mellitus with hyperglycemia Erectile dysfunction Post herpetic neuralgia COPD (chronic obstructive pulmonary disease) Obstructive sleep apnea Rotator cuff tear, left Carotid stenosis Tubular adenoma of colon Hypertension Hypercholesterolemia PVCs (premature ventricular contractions) NICM (nonischemic cardiomyopathy) CAD (coronary artery disease) Surgical History History of cardiac radiofrequency ablation History of colonoscopy History of cataract surgery History of repair of rotator cuff History of cardiac catheterization History of tonsillectomy History of carotid endarterectomy Family History Father H/O ETOH abuse Hypertension Mother Hypertension Brother Diabetes Brother No problems noted. Sister No problems noted. Sister No problems noted. Social History Household Members: None Housing: House Do you presently have visiting nurse or other home services: No Alcohol intake: current Alcohol intake frequency: holidays/special occasions only Alcohol type: beer Comment: no instruments used Patient Tobacco Use Status: Never used Tobacco e-Cigarette/Vaping Use: Never Used Second Hand Smoke Exposure: No Advance Directives Date on File: 11/17/21 service: No Current occupational status: employed Cognitive needs: No Hearing needs: Yes Vision needs: Yes Review of Systems Const All systems reviewed & are unremarkable except as noted in HPI and below Physical Exam Vital Signs: Last Vital Signs Pulse 58 03/26/24 11:14 Resp 16 03/26/24 10:37 BP 149/65 H 03/26/24 11:14 Pulse Ox 96 03/26/24 11:14 Oxygen Delivery Method Room Air 03/26/24 11:14 BMI result Body Mass Index 29.0 General: Appears afebrile. Alert and oriented. Mood and affect appropriate. Follows and participates in conversation appropriately. Respiratory effort is unlabored. No cough. Able to transition from sit to stand unassisted. Ambulates with bilaterally normal heel strike and toe off. GI Inspection: Yes normal to inspection, No distended and Yes obesity Palpation (GI): Soft to palpation, nontender and no guarding General: Yes no CVA tenderness Back/Spine/Pelvis Other: Limited lumbar ROM due to pain. Lumbar flexion, extension and bending forward reproduces mild to moderate pain. Painful facet loading bilaterally. Moderate TTP to right T10-T11 dermatomal distribution, wrapping medially to right midclavicular line. Back: no CVA tenderness and No back tenderness Cervical Spine: cervical ROM normal and No Cervical spine tenderness Thoracic/Lumbar Spine: thoracic and lumbar spine normal to inspection, Thoracic/lumbar spine scar(s), Lasegue's sign negative, straight leg raise negative bilaterally, No paraspinal muscle tenderness, thoraco-lumbar ROM limited, No thoracic spinal tenderness and No lumbar spinal tenderness Extrem General: Yes capillary refill normal, Yes no calf tenderness and Yes edema (nonpitting BLE +1 edema) Office Procedures Topical Capsaicin Date 1:: 03/26/24 Laterality: Right (T10-T11 distribution) Quality of pain: Stabbing, Burning, Penetrating and Sharp Details:: Two patches, 560 cm2 were utilized. EMLA Cream (lidocaine 2.5% and prilocaine 2.5%) was applied at home by patient prior to application of the patches. The patient tolerated the procedure well initially but progressively became more uncomfortable about 30 minutes after initiation. His vital signs remained stable however. Patient was able to complete the stipulated 60 minutes of the therapeutic application but with mild discomfort. Office Meds capsaicin-skin cleanser 8 % topical kit Performing Provider: BARI Moscoso Performing Location: [facility] Administered by: BARI Moscoso on 03/26/24 10:10 Dose Route Admin Location Dispensed Lot Number Expiration Date [facility] [employer] 2 ea topical 2 ea [id number] 05/30/25 26728-128-57 [employer] Results Reviewed Results Reviewed: XR THORACIC SPINE 12/20/23 CLINICAL INFORMATION: Shingles. Pain. FINDINGS: No fracture or bone destruction is seen. The vertebral alignment appears unremarkable. No disc space narrowing is appreciated. No abnormality of the paraspinal soft tissues is seen. Calcification of the aorta and coronary arteries. Status post coronary arterial stent placement. Tip of a metallic lead projects just to the left of midline at T9. IMPRESSION: No acute finding. XR LUMBOSACRAL SPINE WITH OBLIQUES 12/20/23 CLINICAL INFORMATION: Shingles. Pain. FINDINGS: Moderate multilevel disc space narrowing. Facet degenerative change at L2-S1. Mild lumbar dextrocurvature. The vertebral bodies and posterior elements appear unremarkable. Vertebral body heights appear preserved. No evidence of spondylolisthesis. The paraspinal soft tissues appear unremarkable. Heavy vascular calcification IMPRESSION: Degenerative change. Assessment & Plan Assessment & Plan (1) Post herpetic neuralgia: Code(s): B02.29 - Other postherpetic nervous system involvement Category: Medical (2) Chronic pain syndrome: Code(s): G89.4 - Chronic pain syndrome Category: Medical (3) Chronic low back pain: Code(s): M54.50 - Low back pain, unspecified; G89.29 - Other chronic pain Category: Medical (4) Spinal cord stimulator status: Code(s): Z96.89 - Presence of other specified functional implants Category: Medical Plan Patient is status post 1st round of application of topical capsaicin 8% for PHN. Patient tolerated the procedure with mild discomfort and with application of EMLA cream prior to the procedure. Patient was discharged home in stable co ndition with discharge instructions. If Qutenza applications are not helpful then will plan for right T10-T11 parasagittal GRACY and Intercostal nerve blocks. If it does not have a favorable response, will consider Botox injections. He continues to take Pregabalin and use Stim[employer] PNS device. All questions and concerns have been answered and patient agreed with the plan. Follow up as needed. Greater than 60 minutes were spent in therapeutic application, planning and coordinating care for this patient and organizing this note. Orders: Orders AMB Capsaicin Patch - Practice Supplied Today B02.29 - Other postherpetic nervous system involvement, G89.4 - Chronic pain syndrome Coding Level of Care Code Est Pt Level 5 (38274) Complex EM visit Add On G2211 Diagnoses Post herpetic neuralgia B02.29 Chronic pain syndrome G89.4 Chronic low back pain M54.50; G89.29 Spinal cord stimulator status Z96.89
[2024-03-26 09:59] VITALS: BP 156/70; PULSE 61; O2SAT 98; BMI 29.0
[2024-03-26 10:34] VITALS: BP 84/47; PULSE 55; O2SAT 96
[2024-03-26 10:37] VITALS: BP 132/63; PULSE 58; RESP 16; O2SAT 95
[2024-03-26 11:14] VITALS: BP 149/65; PULSE 58; O2SAT 96
== END 2024-03-26 11:24 | disposition home or self-care (01) ==
PROVIDERS: PCP Internal Medicine; Visit Provider Nurse Practitioner Family
DX: B02.29 Other postherpetic nervous system involvement (principal); G89.4 Chronic pain syndrome; M54.50 Low back pain, unspecified; G89.29 Other chronic pain; Z96.89 Presence of other specified functional implants
CPT/HCPCS: 17999; 99215

== ENCOUNTER → 2024-03-26 09:53 | Outpatient (BNVA) | payer MEDICARE, SELFPAY | PROVIDERS: PCP Internal Medicine; Visit Provider Nurse Practitioner Family | DX: B02.29 Other postherpetic nervous system involvement (principal); G89.4 Chronic pain syndrome; M54.50 Low back pain, unspecified; G89.29 Other chronic pain; Z96.89 Presence of other specified functional implants | CPT/HCPCS: 17999; 99212; J7336 ==

== ENCOUNTER 2024-03-26 11:29 | Outpatient (REF) | payer MEDICARE, SELFPAY ==
[2024-03-26 13:44] LABS: MANUAL DIFF FLAG NO
[2024-03-26 13:58] LABS: Basophils Absolute Auto 0.1 X10*3/uL (0.0-0.2); Eosinophils Absolute Auto 0.4 X10*3/uL (0.0-0.4); Eosinophils Percent Auto 6.4 % (0-4); Hematocrit 43.2 % (42.0-52.0); Hemoglobin 13.5 g/dl (14.0-18.0); Imm Gran Abs Auto 0.04 X10*3/uL (0.00-0.03); Imm Gran Pct Auto 0.6 % (0.0-0.4); Immature Retic Fraction 10.6 % (2.3-13.4); Lymphocytes Percent Auto 14.2 % (20-40); Mean Corpuscular HGB Conc 31.3 g/dl (31.0-36.0); Mean Corpuscular Hemoglobin 29.8 pg (27.0-33.0); Mean Corpuscular Volume 95.4 fL (80.0-98.0); Mean Platelet Volume 11.8 fL (9.4-12.4); Monocytes Absolute Auto 0.8 X10*3/uL (0.1-1.2); Neutrophils Absolute Auto 4.6 x10*3/uL (2.0-8.3); Neutrophils Percent Auto 66.8 % (45-73); Platelet Count 197 X10*3/uL (160-400); Red Blood Count 4.53 X10*6/uL (4.60-5.80); Retic HGB Equivalent 32.3 pg (30.0-35.0); Reticulocyte Percent 1.2 % (0.5-1.8); Reticulocytes Absolute 0.052 X10*6/uL (0.026-0.095); White Blood Count 6.9 X10*3/uL (4.8-10.8)
[2024-03-26 14:11] LABS: Estimated Average Glucose 177 mg/dL; Hemoglobin A1C 214.9714 umol/L; Hemoglobin A1c % 7.8 % (<6.0); Total Hemoglobin (HGBA1C) 3478.1973 umol/L
[2024-03-26 14:28] LABS: B Type Natriuretic Peptide 106 pg/mL (<100)
[2024-03-26 14:39] LABS: Alanine Aminotransferase 38 U/L (0-40); Albumin Level 3.9 g/dL (3.5-5.0); Alkaline Phosphatase 67 U/L (39-117); Anion Gap 10 (12-20); Aspartate Amino Transferase 83 U/L (5-37); Bilirubin Total 0.4 mg/dL (0.0-1.0); Blood Urea Nitrogen 23 mg/dL (9-16); Calcium 9.4 mg/dL (8.4-10.2); Carbon Dioxide 28 mmol/L (22-29); Chloride 107 mmol/L (96-108); Estimated Glomerular Filt Rate 36; Ferritin 78 ng/mL (20-250); Glucose Random 137 mg/dL (60-115); Iron 47 mcg/dL (45-160); Percent Iron Saturation 14 % (15-50); Potassium 4.2 mmol/L (3.3-5.1); Sodium 141 mmol/L (135-145); Total Iron Binding Capacity 335 mcg/dL (228-428); Total Protein 6.6 g/dL (6.5-8.0); Unsaturated Iron Binding 288 ug/dL
[2024-03-26 14:44] LABS: Vitamin B12 869 pg/mL (200-900)
== END 2024-03-26 11:30 | disposition home or self-care (01) ==
LOC: HO.10HDL 11:29
PROVIDERS: Visit Provider Internal Medicine
DX: Z13.1 Encounter for screening for diabetes mellitus (principal); N18.30 Chronic kidney disease, stage 3 unspecified
CPT/HCPCS: 36415; 80053; 82607; 82728; 82746; 83036; 83540; 83880; 85025; 85045

== ENCOUNTER 2024-04-03 09:18 | Outpatient (AMB) | payer MEDICARE, SELFPAY ==
[2024-04-03 09:25] VITALS: BP 130/62; PULSE 52; O2SAT 91; BMI 29.0
--- NOTE | 2024-04-03 09:25 | A.OFFPC_ITS ---
Vital Signs 04/03/24 09:25 Height 5 ft 6 in Weight 180 lb BMI 29.0 BP 130/62 Blood Pressure Location Lt brachial Position Sitting Pulse 52 Pulse Source Pulse Oximeter Pulse Oximetry (%) 91 L Oxygen Delivery Method Room Air Intake Visit Reasons: CHF, Afib Allergies lisinopril Allergy (Unknown, Verified 04/03/24 09:25) Unknown Penicillins [PENICILLINS] Allergy (Unknown, Verified 04/03/24 09:25) UNKNOWN REACTION-CHILDHOOD ALLERGY Tobacco use date assessed: 08/29/23 Fall risk assessment: No Falls in past year Last assessed Fall Risk: 04/03/24 Dental Screening Dental Screen Date: 12/06/23 HPI CHF, Afib HPI Details 78-year-old overweight male with a histo ry of atrial fibrillation congestive heart failure chronic kidney disease carotid artery disease obstructive sleep apnea diabetes mellitus COPD hypertension hypercholesterolemia and coronary artery disease coming in for follow-up. 12/17/2023 last seen. Review of the notes has been following up with pain management on Q 10 has a for post herpetic neuralgia T10-11 distribution right side having neuropathic pain plan is if the acute 10 Z does not help then planned for right T10-11 parasagittal GRACY and intercostal nerve block then if not relieved Botox injections. Continuing with pregabalin and stem where PNS device. Patient as also follows up with Nephrology February 26 renal injury due to diuretics and volume depletion. Advised to continue hold off Lasix due to blood pressure being low. For the sleep apnea patient follows up with Pulmonary restrictive l jeane disease weight is a problem, obstructive sleep apnea very compliant more than 4 hours a night and benefits from this. drinking alcohol more and eating indiscriminate. aware , discussed about the high BS [facility] Medical History Cardiomyopathy Cataracts, bilateral Chronic otitis media Peripheral vascular disease Type 2 diabetes mellitus with hyperglycemia Erectile dysfunction Post herpetic neuralgia COPD (chronic obstructive pulmonary disease) Obstructive sleep apnea Rotator cuff tear, left Carotid stenosis Tubular adenoma of colon Hypertension Hypercholesterolemia PVCs (premature ventricular contractions) NICM (nonischemic cardiomyopathy) CAD (coronary artery disease) Surgical History History of cardiac radiofrequency ablation History of colonoscopy History of cataract surgery History of repair of rotator cuff History of cardiac catheterization History of tonsillectomy History of carotid endarterectomy Family History Father H/O ETOH abuse Hypertension Mother Hypertension Brother Diabetes Brother No problems noted. Sister No problems noted. Sister No problems noted. Social History Household Members: None Housing: House Do you presently have visiting nurse or other home services: No Alcohol intake: current Alcohol intake frequency: holidays/special occasions only Alcohol type: beer Comment: no instruments used Patient Tobacco Use Status: Never used Tobacco Tobacco use type: Cigarette e-Cigarette/Vaping Use: Never Used Second Hand Smoke Exposure: No Advance Directives Date on File: 11/17/21 service: No Current occupational status: employed Cognitive needs: No Hearing needs: Yes Vision needs: Yes Questionnaire PHQ-9 Over the last 2 weeks, how often have you been bothered by any of the following problems? 1. Little interest or pleasure in doing things: not at all 2. Feeling down, depressed, or hopeless: not at all 3. Trouble falling or staying asleep, or sleeping too much: not at all 4. Feeling tired or having little energy: several days 5. Poor appetite or overeating: not at all 6. Feeling bad about yourself - or that you are a failure or have let yourself or your family down: not at all 7. Trouble concentrating on things, such as reading the newspaper or watching television: not at all 8. Moving or speaking so slowly that other people could have noticed. Or the opposite - being so fidgety or restless that you have been moving around a lot more than usual: not at all 9. Thoughts that you would be better off or of hurting yourself in some way: not at all Total score: 1 Depression Screening Interpretation: Negative Depression Screening Done: Yes [id number] - PHQ-9 Billing: Yes Source: Developed by Drs. Marcos Phan, Holley Encinas, Tk Car and colleagues, with an educational deonte from [employer]. Thrive Questionnaire Date Thrive assessed: 08/10/23 AUDIT C Alcohol Use Questionnaire (AUDIT-C) 1. How often do you have a drink containing alcohol?: 2-3 times a week 2. How many drinks containing alcohol do you have on a typical day when you are drinking?: 1 or 2 3. How often do you have six or more drinks on one occasion?: Never Total Score: 3 RENETTA-7 AMB Questionnaire RENETTA-7 Date RENETTA - 7 assessed: 12/06/23 Source: Developed by Drs. Marcos Phan, Holley Encinas, Tk Car and colleagues, with an educational deonte from [employer]. Physical exam (Primary Care) Vital Signs: Last Vital Signs Pulse 52 04/03/24 09:25 BP 130/62 04/03/24 09:25 Pulse Ox 91 L 04/03/24 09:25 Oxygen Delivery Method Room Air 04/03/24 09:25 BMI result Body Mass Index 29.0 Tobacco/Smoking Status: Tobacco use Status Tobacco use date assessed 08/29/23 04/03/24 09:30 Patient Tobacco Use Status Never used Tobacco 04/03/24 09:30 Tobacco use type Cigarette 04/03/24 09:30 e-Cigarette/Vaping Use Never Used 04/03/24 09:30 PHQ-9: PHQ-9 Score PHQ-9: Total score 1 04/03/24 09:55 Depression Screening Interpretation: Negative Thrive Assessment: Date of Thrive Assessment Date Thrive assessed 08/10/23 04/03/24 09:30 Const General: alert; No acute distress Eyes Conjunctivae: conjunctivae normal Resp Auscultation: clear to auscultation bilaterally Cardio Rate: regular rate Rhythm: regular rhythm GI Inspection: Yes normal to inspection Extrem General: Yes normal to inspection and No edema Coding Level of Care Code Est Pt Level 4 (59655) Complex EM visit Add On G2211 Diagnoses Stage 3b chronic kidney disease N18.32 Chronic kidney disease stage 3 subtype: stage 3b (GFR 30-44) PAF (paroxysmal atrial fibrillation) I48.0 Chronic diastolic congestive heart failure I50.32 Heart failure chronicity: chronic Heart failure type: diastolic Restrictive lung disease J98.4 JITENDRA on CPAP G47.33; Z99.89 Post herpetic neuralgia B02.29 Type 2 diabetes mellitus with hyperglycemia, without long-term current use of insulin E11.65 Diabetes mellitus exterminator helper insulin use: without snf use Pulmonary emphysema, unspecified emphysema type J43.9 COPD type: emphysema Emphysema type: unspecified Essential hypertension I10 Hypertension type: essential hypertension Hypercholesterolemia E78.00 Coronary artery disease involving [place] coronary artery of [place] heart without angina pectoris I25.10 Associated angina: without angina Coronary Disease-Associated Artery/Lesion type: [place] artery [place] vs. transplanted heart: [place] heart Alcohol abuse F10.10 Dysuria R30.0 Assessment & Plan Assessment & Plan (1) CKD (chronic kidney disease) stage 3, GFR 30-59 ml/min: Code(s): N18.30 - Chronic kidney disease, stage 3 unspecified Category: Medical Qualifiers: Chronic kidney disease stage 3 subtype: stage 3b (GFR 30-44) Qualified Code(s): N18.32 - Chronic kidney disease, stage 3b Plan: Patient follows up with Nephrology continuing to hold diuretic and continue to monitor renal function (2) PAF (paroxysmal atrial fibrillation): Comment: Status post cardioversion Code(s): I48.0 - Paroxysmal atrial fibrillation Category: Medical Plan: Continue with anticoagulant on amiodarone (3) Congestive heart failure: Comment: Preserved ejection fraction Code(s): I50.9 - Heart failure, unspecified Category: Medical Qualifiers: Heart failure chronicity: chronic Heart failure type: diastolic Qualified Code(s): I50.32 - Chronic diastolic (congestive) heart failure Plan: Continue to monitor. BNP is good (4) Restrictive lung disease: Comment: He has moderate degree of restrictive lung disease, Secondary to, weight gain,( especially abdominal obesity ) and some degree of bibasilar atelectasis. Code(s): J98.4 - Other disorders of lung Category: Medical Plan: Discussed with the Pulmonary as weight is the problem. (5) JITENDRA on CPAP: Comment: Known case of obstructive sleep apnea since 2017. Has been using CPAP very regularly all this time. REMAINS VERY COMPLIANT, OLD CPAP DEVICE WAS NOT CAPABLE OF TRANSMITTING THE COMPLIANCE DATA. HE HAS THE NEW CPAP MACHINE AND ADVISED TO START USING IT REGULARLY, WE WERE NOT ABLE TO DOWNLOAD THE COMPLIANCE DATA. BUT ACCORDING TO HIM HE USES EVERY NIGHT FOR AT LEAST 4-5 HOURS PER NIGHT. Code(s): G47.33 - Obstructive sleep apnea (adult) (pediatric); Z99.89 - Dependence on other enabling machines and devices Category: Medical Plan: Continue to use the CPAP more than 4 hours a night and benefits from this (6) Post herpetic neuralgia: Code(s): B02.29 - Other postherpetic nervous system involvement Category: Medical Plan: Patient is with the pain management and having Qutenza, a pregabalin (7) Type 2 diabetes mellitus with hyperglycemia: Comment: Dr. Hawthorne Code(s): E11.65 - Type 2 diabetes mellitus with hyperglycemia Category: Medical Qualifiers: Diabetes mellitus snf insulin use: without snf use Qualified Code(s): E11.65 - Type 2 diabetes mellitus with hyperglycemia Plan: Decrease the amount of carbohydrate intake, pasta, bread, rice and potatoes are all sugar and that is aside from all the sweet stuff, remember that fruits are good but they are Sweet also. Patient is on Jardiance 25 mg once a day and Tradjenta 5 mg once a day (8) COPD (chronic obstructive pulmonary disease): Comment: PATIENT HAS ONLY BORDERLINE OBSTRUCTIVE AIRWAY DISORDER AND DOES NOT REQUIRED TO USE ANY BRONCHODILATOR INHALERS. Code(s): J44.9 - Chronic obstructive pulmonary disease, unspecified Category: Medical Qualifiers: COPD type: emphysema Emphysema type: unspecified Qualified Code(s): J43.9 - Emphysema, unspecified Plan: Continue to follow-up with Pulmonary doing good (9) Hypertension: Code(s): I10 - Essential (primary) hypertension Category: Medical Qualifiers: Hypertension type: essential hypertension Qualified Code(s): I10 - Essential (primary) hypertension Plan: Continue with blood pressure medication. Decrease salt intake and exercise blood pressure is a little bit on the low side continue to monitor (10) Hypercholesterolemia: Code(s): E78.00 - Pure hypercholesterolemia, unspecified Category: Medical Plan: Avoid fried foods, chicken skin, eggs, butter margarine, pastries and meat. Be it pork or beef they have a lot of cholesterol on atorvastatin 40 mg once a day LDL goal of less than 70 and triglyceride of less than 150 11/17/2023 last blood work (11) CAD (coronary artery disease): Code(s): I25.10 - Atherosclerotic heart disease of [place] coronary artery without angina pectoris Category: Medical Qualifiers: Associated angina: without angina Coronary Disease-Associated Artery/Lesion type: [place] artery [place] vs. transplanted heart: [place] heart Qualified Code(s): I25.10 - Atherosclerotic heart disease of [place] coronary artery without angina pectoris Plan: Control the cholesterol, weight, blood pressure, diabetes presently on anticoagulation. (12) Alcohol abuse: Code(s): F10.10 - Alcohol abuse, uncomplicated Category: Social Hx Plan: advised to abstain (13) Dysuria: Code(s): R30.0 - Dysuria Category: Medical Plan: Patient is requested to get a urinalysis Orders: Orders Comprehensive Met. Panel 3 Months N18.30 - Chronic kidney disease, stage 3 unspecified Complete Blood Count Auto Diff 3 Months N18.30 - Chronic kidney disease, stage 3 unspecified Hemoglobin A1c 3 Months N18.30 - Chronic kidney disease, stage 3 unspecified AMB Urinalysis Automated Today R30.0 - Dysuria, Z13.9 - Encounter for screening, unspecified
== END 2024-04-03 10:17 | disposition home or self-care (01) ==
LOC: HO.HMCH 09:19
PROVIDERS: PCP Internal Medicine; Visit Provider Internal Medicine
DX: I13.0 Hypertensive heart and chronic kidney disease with heart failure and stage 1 through stage 4 chronic kidney disease, or unspecified chronic kidney disease (principal); N18.32 Chronic kidney disease, stage 3b; I48.0 Paroxysmal atrial fibrillation; I50.32 Chronic diastolic (congestive) heart failure; E11.65 Type 2 diabetes mellitus with hyperglycemia; J43.9 Emphysema, unspecified; J98.4 Other disorders of lung; G47.33 Obstructive sleep apnea (adult) (pediatric); Z99.89 Dependence on other enabling machines and devices; B02.29 Other postherpetic nervous system involvement; E78.00 Pure hypercholesterolemia, unspecified; I25.10 Atherosclerotic heart disease of native coronary artery without angina pectoris

== ENCOUNTER → 2024-04-03 09:18 | Outpatient (BNVA) | payer MEDICARE, SELFPAY | PROVIDERS: PCP Internal Medicine; Visit Provider Internal Medicine | DX: I13.0 Hypertensive heart and chronic kidney disease with heart failure and stage 1 through stage 4 chronic kidney disease, or unspecified chronic kidney disease (principal); E11.22 Type 2 diabetes mellitus with diabetic chronic kidney disease; N18.32 Chronic kidney disease, stage 3b; I50.32 Chronic diastolic (congestive) heart failure; I48.0 Paroxysmal atrial fibrillation; J98.4 Other disorders of lung; G47.33 Obstructive sleep apnea (adult) (pediatric); Z99.89 Dependence on other enabling machines and devices; B02.29 Other postherpetic nervous system involvement; E11.65 Type 2 diabetes mellitus with hyperglycemia; J43.9 Emphysema, unspecified; E78.00 Pure hypercholesterolemia, unspecified; I25.10 Atherosclerotic heart disease of native coronary artery without angina pectoris; F10.10 Alcohol abuse, uncomplicated; R30.0 Dysuria | CPT/HCPCS: 96127; 99212 ==

== ENCOUNTER 2024-05-07 13:16 | Outpatient (AMB) | payer MEDICARE, SELFPAY ==
[2024-05-07 13:27] VITALS: BP 122/52; PULSE 61; O2SAT 96; BMI 29.0
--- NOTE | 2024-05-07 13:27 | A.OFFVIS_ITS ---
Vital Signs 05/07/24 13:27 Height 5 ft 6 in Weight 179 lb 10.828 oz BMI 29.0 BP 122/52 L Blood Pressure Location Lt brachial Position Sitting Pulse 61 Pulse Source Pulse Oximeter Pulse Oximetry (%) 96 Oxygen Delivery Method Room Air Intake Visit Reasons: RLD Intake Note: pt is here for follow up and states he is feeling great today. Environmental Project Manager Required: No Allergies lisinopril Allergy (Unknown, Verified 05/07/24 13:32) Unknown Penicillins [PENICILLINS] Allergy (Unknown, Verified 05/07/24 13:32) UNKNOWN REACTION-CHILDHOOD ALLERGY Do you need a note to return to daycare/school/sports/work: No HPI HPI RLD: Details: This 78 years old very pleasant gentleman case of moderate obesity and obstructive sleep apnea for the past many years, has new CPAP device. He is here for follow-up and is very happy with the CPAP device. However we still can not download the compliance data. According to the patient he is using it every night at least for 6 hours per night and sleeps well. He has an issue with the water tank, that it consumes the water before he wakes up. He is wondering if he can do without the humidification. [facility] Medical History Cardiomyopathy Cataracts, bilateral Chronic otitis media Peripheral vascular disease Type 2 diabetes mellitus with hyperglycemia Erectile dysfunction Post herpetic neuralgia COPD (chronic obstructive pulmonary disease) Obstructive sleep apnea Rotator cuff tear, left Carotid stenosis Tubular adenoma of colon Hypertension Hypercholesterolemia PVCs (premature ventricular contractions) NICM (nonischemic cardiomyopathy) CAD (coronary artery disease) Surgical History History of cardiac radiofrequency ablation History of colonoscopy History of cataract surgery History of repair of rotator cuff History of cardiac catheterization History of tonsillectomy History of carotid endarterectomy Family History Father H/O ETOH abuse Hypertension Mother Hypertension Brother Diabetes Brother No problems noted. Sister No problems noted. Sister No problems noted. Social History Household Members: None Housing: House Do you presently have visiting nurse or other home services: No Alcohol intake: current Alcohol intake frequency: holidays/special occasions only Alcohol type: beer Comment: no instruments used Patient Tobacco Use Status: Never used Tobacco Tobacco use type: Cigarette e-Cigarette/Vaping Use: Never Used Second Hand Smoke Exposure: No Advance Directives Date on File: 11/17/21 service: No Current occupational status: employed Cognitive needs: No Hearing needs: Yes Vision needs: Yes Review of Systems Const All systems reviewed & are unremarkable except as noted in HPI and below Eyes Reports no additional complaints ENT Reports no additional complaints Card Denies chest pain, Denies irregular heart rhythm, Reports leg edema (Mild) and Reports dyspnea on exertion (Moderate) Resp Denies cough, Reports dyspnea on exertion (Moderate) and Denies wheezing GI Reports no additional complaints Reports no additional complaints Musc Reports no additional complaints Skin/Breast Reports system reviewed and no additional complaints, except as documented Neuro Reports no additional complaints Psych Reports no additional complaints Endo Reports no additional complaints Eliseo/Lymph Reports no additional complaints Aller/Immun Denies wheezing Physical Exam Vital Signs: Last Vital Signs Pulse 61 05/07/24 13:27 BP 122/52 L 05/07/24 13:27 Pulse Ox 96 05/07/24 13:27 Oxygen Delivery Method Room Air 05/07/24 13:27 BMI result Body Mass Index 29.0 Const General: healthy appearing (Except for being overweight), comfortable, no acute distress, alert and awake Orientation/consciousness: patient oriented x3 HEENT Head: Yes normal to inspection General nose exam: No nasal polyps present and No nasal discharge present Face and sinus: Yes sinuses nontender Mouth: oropharynx normal Throat: Yes posterior oropharynx normal Eyes General: appearance normal, both eyes and all related structures Neck Neck: Yes normal visual inspection, Yes no lymphadenopathy, Yes trachea midline and Yes no JVD Thyroid: Thyroid normal Chest Chest palpation & inspection: normal inspection of the chest, normal palpation of entire chest wall and no tenderness Resp Other: Percussion note resonant. Breath sounds are equal on both sides, slightly diminished over the basilar areas. No wheezes or crepitations are heard. Cardio Palpation: normal PMI Rate: regular rate Rhythm: regular rhythm Heart sounds: no gallops and no murmurs Peripheral pulses: Peripheral pulses 2+ throughout GI Palpation (GI): Soft to palpation, nontender, No hepatosplenomegaly present, no masses and Other GI palpation findings present (Abdomen is moderately protuberant.) Auscultation: normal bowel sounds Back/Spine/Pelvis Thoracic/Lumbar Spine: thoracic and lumbar spine normal to inspection Skin General skin exam: no rashes or lesions noted Neuro General: patient oriented x3 and no focal motor deficits Cranial nerves: Yes CN's II-XII intact bilaterally Extrem General: Yes normal to inspection, Yes no calf tenderness and Yes edema (1+ pitting edema of both legs) Psych Appearance: grossly normal and well kempt Speech and movement: Normal speech and movement present Results Reviewed Results Reviewed: Compliance data could not be downloaded but accordingly the patient he uses it very regularly every night and on an average more than 6 hours per night. Assessment & Plan Assessment & Plan (1) JITENDRA on CPAP: Comment: Known case of obstructive sleep apnea since 2017. Has been using CPAP very regularly all this time. REMAINS VERY COMPLIANT, OLD CPAP DEVICE WAS NOT CAPABLE OF TRANSMITTING THE COMPLIANCE DATA. HE HAS THE NEW CPAP MACHINE AND ADVISED TO START USING IT REGULARLY, WE WERE NOT ABLE TO DOWNLOAD THE COMPLIANCE DATA. BUT ACCORDING TO HIM HE USES EVERY NIGHT FOR AT LEAST 6 HOURS PER NIGHT. Code(s): G47.33 - Obstructive sleep apnea (adult) (pediatric); Z99.89 - Dependence on other enabling machines and devices Category: Medical Plan: Advised to continue using the CPAP every night. Advised to use humidification every night. Checked his CPAP machine and it seem to be working fine. (2) COPD (chronic obstructive pulmonary disease): Comment: PATIENT HAS ONLY BORDERLINE OBSTRUCTIVE AIRWAY DISORDER AND DOES NOT REQUIRE TO USE ANY BRONCHODILATOR INHALERS. Code(s): J44.9 - Chronic obstructive pulmonary disease, unspecified Category: Medical Qualifiers: COPD type: emphysema Emphysema type: unspecified Qualified Code(s): J43.9 - Emphysema, unspecified Plan: Reassured that his respiratory status is good and stable at this time. It is okay not to use any bronchodilator inhalers. Coding Level of Care Code Est Pt Level 3 (00145) Diagnoses JITENDRA on CPAP G47.33; Z99.89 Pulmonary emphysema, unspecified emphysema type J43.9 COPD type: emphysema Emphysema type: unspecified
--- OUTSIDE RECORDS SUMMARY | 2024-05-09 15:42 | XMS_ITS ---
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 Name Role Phone Elida Siddiqui Primary Care Provider UnavailBrody Rosales Unavailable [phone] Clau Morel Unavailable [phone] Allergies Allergen (clinical drug ingredient) Drug/Non Drug Allergy documented on EMR Reaction Allergy Type Onset Date Status Penicillin Unknown Drug Allergy Active lisinopril Lisinopril Unknown Drug Allergy Activ e REASON FOR VISIT PCP - 07/2022, Toe Irritation, Skin Problem Medications Medication SIG (Take, Route, Frequency, Duration) Notes Start Date End Date Status Folic Acid 1 MG 1 tablet Orally Once a day Active Fenofibrate 160 MG 1 tablet Orally Once a day for 30 day(s) Active Pregabalin 50 MG 1 capsule Orally Twi ce a day Active Clopidogrel Bisulfate 75 MG 1 tablet Orally Once a day for 30 day(s) Active Atorvastatin Calcium 40 MG 1 tablet Orally Once a day for 30 day(s) Active Actos 15 MG 1 tablet Orally Once a day for 30 day(s) Not-Taking Aspirin 81 MG 1 tablet Orally Once a day for 30 day(s) Not-Taking amLODIPine Besylate 5 MG 1 tablet Orally Once a day for 30 day(s) Active Extra Depth Orthopedic Shoes (1 Pair) with Customized Heat Molded Multidensity Innersoles (3 Pair) as directed Dx: NIDDM (E11.9), Hammertoe Foot Deformity (M20.41,M20.42), Preulcerative Skin Lesion(s) (L85.1) 02/16/2023 Active Ciclopirox Olamine 0.77 % 1 application Externally Twice a day for 30 days Active Janumet 50-500 MG 1 tablet with meals Orally Twice a day for 30 day(s) Not-Taking Simvastatin 40 MG 1 tablet in the even ing Orally Once a day for 30 day(s) Not-Taking metFORMIN HCl 1000 MG 1 tablet with a me al Orally Once a day for 30 day(s) Not-Taking Lipitor 10 MG 1 tablet Orally Once a day for 30 day(s) Not-Taking Diovan 40 MG 3 tablets Orally Twi ce a day for 30 day(s) Not-Taking Vitamin D 1000 UNIT 1 capsule Orally Onc e a day for 30 day(s) Active Vitamin B12 Active Pioglitazone HCl 30 MG 1 tablet Orally O nce a day for 30 day(s) Active Extra Depth Orthopedic Shoes (1 Pair) with Customized Heat Molded Multidensity Innersoles (3 Pair) as directed Dx: NIDDM/PVD (E11.59), Hammertoe Foot Deformity (M20.41,M20.42), Preulcerative Skin Lesion(s) (L85.1) 06/19/2021 Active Social History Tobacco Use: Social History Observation Description Date Details (start date - stop date) Never Smoker NA - NA Tobacco Use/Smoking Question Answer Notes Are you a: nonsmoker Additional Findings: Tobacco Non-User Current no n-smoker Alcohol Screen Question Answer Notes Did you have a drink contain ing alcohol in the past year? Yes How often did you have a dri nk containing alcohol in the past year? 2 to 4 times a month (2 points) Points 2 Interpretation Negative Tobacco use other than smoking: Question Answer Notes Are you an other tobacco user? No Vital Signs Height 5 ft 6 in in 02/16/2023 Weight 185 lbs 02/16/2023 BMI 29.86 kg/m2 02/16/2023 Encounters Encounter Location Date Provider Diagnosis [facility] [place] [address] [place] [address] 02/16/2023 Clau Morel Other hammer toe(s) (acquired), right foot M20.41 ; Other hammer toe(s) (acquired), left foot M20.42 ; Tinea pedis of both feet B35.3 and Type 2 diabetes mellitus with diabetic peripheral angiopathy without gangrene E11.51 Assessments Encounter Date Diagnosis (ICD Code) Assessment Notes Treatment Notes Treatment Clinical Notes Section Notes 02/16/2023 Other hammer toe(s) (acquired), right foot (ICD-10 - M20.41) Patient Educated with: DIABETIC FOOT CARE INSTRUCTIONS.p df (DIABETIC FOOT CARE INSTRUCTIONS.p df) 02/16/2023 Other hammer toe(s) (acquired), left foot (ICD-10 - M20.42) 02/16/2023 Tinea pedis of both feet (ICD-10 - B35.3) 02/16/2023 Type 2 diabetes mellitus with diabetic peripheral angiopathy without gangrene (ICD-10 - E11.51) Plan Of Treatment Medication Medication Name Sig Start Date Stop Date Notes Extra Depth Orthopedic Shoes (1 Pair) with Customized Heat Molded Multidensity Innersoles (3 Pair) as directed Dx: NIDDM (E11.9), Hammertoe Foot Deformity (M20.41,M20.42), Preulcerative Skin Lesion(s) (L85.1) 02/16/2023 Ciclopirox Olamine 0.77 % 1 application Externally Twice a day for 30 days Treatment Notes Assessment Notes Other hammer toe(s) (acquired), right fo ot Patient Educated with: DIABETIC FOOT CARE INSTRUCTIONS.pdf (DIABETIC FOOT CARE INSTRUCTIONS.pdf) Next Appt Details Follow Up: 1 Year, Reason: Provider Name:Clau isaac, 02/22/2025 10:00:00 AM, [address] [place] [address], [phone], Progress Notes * Deondre TRUJILLO ADOB:1945 (77 yo M)Acc No.[id number]:02/16/2023 Progress Note Patient:?Deondre Trujillo Provider:?Clau Morel DPM :1945???Age:77 Y???Sex:Male Jose e:02/16/2023 Address:[address] [place], [place] [id number] Pcp:Elida Siddiqui Subjective: * Chief Complaints: * ???PCP - 07/2022Toe Irritati onSkin Problem * HPI: ???Toe pain:?Location:?B/L feet.?Duration:?several years.?Course:?worse.?Aggrevated by:?shoes, any pressure.?Treatments:?change in shoes.?Skin problems:?Location:?B/L .?Duration:?several days.?Course:?worse.? * ROS:?General/Constitutional:?Nausea?denies.?Vomiting?denies.?Hunger Thirst?denies.?Loss appetite?denies.?Chills?denies.?Fatigue?denies.?Fever?denies.?Night Sweats?denies.?Unexplained weight loss?denies.?Unexplained weight gain?denies.?HEENTM:?Dentures?denies.?Dizziness?denies.?Glasses/contacts?admits.?Retinopathy?de nies.?Blurred/double vision?denies.?TMJ?denies.?Discharge/drainage?denies.?Implants?denies.?Sore throat?denies.?Dental implants?denies.?Hard of hearing ?admits.?Difficulty chewing/swallowing/speaking?denies.?Nose bleeds?denies.?Sore mouth?denies.?Respiratory:?On Oxygen?denies.?Pneumonia/pleurisy?denies.?Bronchitis?denies.?Emphysema?denies.?C oughing?denies.?Cough blood?denies.?Shortness of breath?denies.?Wheezing?denies.?Cardiovascular:?Pacemaker?denies.?MVP?denies.?WPW?denies.?CHF?denies.?Heart attack?denies.?Septal defect?denies.?Rapid beat?denies.?Chest pain ?denies.?Atrial Fib.?denies.?Murmur/Palpitations?denies.?Gastrointestinal:?Hemorrhoids?denies.?Stomach/Abdominal pain?denies.?Dark blood stool?denies.?Irritable bowel ?denies.?Constipation?denies.?Diarrhea?denies.?Hematology:?Swelling?admits.?Clots?denies.?Varicose Veins?admits.?Bruising?admits.?Bleeding problem?admits, on anticoagulants.?Genitourinary:?Blood urine?denies.?Frequent/Painfu/urination/bladder control?denies.?Kidney stones?denies.?Infection (UTI)?denies.?Nephropathy?denies.?sex trans dis (STD)?denies.?Prostate?denies.?Musculoskeletal:?Hammertoes?admits.?Bunions?denies.?Back Pain?denies.?Muscle Cramps/ Resting?denies.?Muscle cramps / walking?denies.?Generalized aches and pains?denies.?Weakness?denies.?Integ.:?Chamberlain?denies.?Scars?denies.?Corns/calluses?admits.?Ingrown nails?admits.?Painful nails?admits.?Open Sores?denies.?Rashes?denies.?Neurologic:?Difficulty sleeping?denies.?Brain disorder?denies.?Numbness?denies.?Balance trouble?denies.?Confusion?denies.?Fainting/blackouts?denies.?Tingling?denies.?Tr emors?denies.? * Medical History:? * Surgical History:?carotid en darterectomy tonsillectomy torn bicep muscle artery RT 2 stent 2018 * Hospitalization/Major Diagno stic Procedure:?Denies Past Hospitalization * Family History:?Mother: dece ased.?Father: .?Paternal Grand Mother: diagnosed with Diabetic - NIDDM.? * Social History:?Tobacco Use:?Tobacco Use/Smoking?Are you a:?nonsmoker ?Additional Findings: Tobacco Non-User?Current non-smoker ?Tobacco use other than smoking?Are you an other tobacco user??No ???Drugs/Alcohol:?Drugs?Have you used drugs other than those for medical reasons in the past 12 months??No ?Alcohol Screen?Did you have a drink containing alcohol in the past year??Yes ?How often did you have a drink containing alcohol in the past year??2 to 4 times a month (2 points) ?Points?2 ?Interpretation?Negative ???Miscellaneous:?Caffeine: yes, 3-5 cups per day. ?no Children. ?Exercise: yes, walking. ?Marital status: . ?Occupation: [employer] * Medications:?TakingamLODIPin e Besylate 5 MG Tablet 1 tablet Orally Once a dayAtorvastatin Calcium 40 MG Tablet 1 tablet Orally Once a dayClopidogrel Bisulfate 75 MG Tablet 1 tablet Orally Once a dayFenofibrate 160 MG Tablet 1 tablet Orally Once a dayFolic Acid 1 MG Tablet 1 tablet Orally Once a dayPregabalin 50 MG Capsule 1 capsule Orally Twice a dayPioglitazone HCl 30 MG Tablet 1 tablet Orally Once a dayVitamin B12 Vitamin D 1000 UNIT Capsule 1 capsule Orally Once a dayExtra Depth Orthopedic Shoes (1 Pair) with Customized Heat Molded Multidensity Innersoles (3 Pair) as directed Dx: NIDDM/PVD (E11.59), Hammertoe Foot Deformity (M20.41,M20.42), Preulcerative Skin Lesion(s) (L85.1)Taking amLODIPine Besylate 5 MG Tablet 1 tablet Orally Once a dayTaking Atorvastatin Calcium 40 MG Tablet 1 tablet Orally Once a dayTaking Clopidogrel Bisulfate 75 MG Tablet 1 tablet Orally Once a dayTaking Fenofibrate 160 MG Tablet 1 tablet Orally Once a dayTaking Folic Acid 1 MG Tablet 1 tablet Orally Once a dayTaking Pregabalin 50 MG Capsule 1 capsule Orally Twice a dayTaking Pioglitazone HCl 30 MG Tablet 1 tablet Orally Once a dayTaking Vitamin B12 Taking Vitamin D 1000 UNIT Capsule 1 capsule Orally Once a dayTaking Extra Depth Orthopedic Shoes (1 Pair) with Customized Heat Molded Multidensity Innersoles (3 Pair) as directed Dx: NIDDM/PVD (E11.59), Hammertoe Foot Deformity (M20.41,M20.42), Preulcerative Skin Lesion(s) (L85.1)Not-Taking/PRNmetFORMIN HCl 1000 MG Tablet 1 tablet with a meal Orally Once a daySimvastatin 40 MG Tablet 1 tablet in the evening Orally Once a dayDiovan 40 MG Tablet 3 tablets Orally Twice a dayLipitor 10 MG Tablet 1 tablet Orally Once a dayJanumet 50-500 MG Tablet 1 tablet with meals Orally Twice a dayActos 15 MG Tablet 1 tablet Orally Once a dayAspirin 81 MG Tablet Chewable 1 tablet Orally Once a dayMedication List reviewed and reconciled with the patientNot-Taking/PRN metFORMIN HCl 1000 MG Tablet 1 tablet with a meal Orally Once a dayNot-Taking/PRN Simvastatin 40 MG Tablet 1 tablet in the evening Orally Once a dayNot-Taking/PRN Diovan 40 MG Tablet 3 tablets Orally Twice a dayNot-Taking/PRN Lipitor 10 MG Tablet 1 tablet Orally Once a dayNot-Taking/PRN Janumet 50-500 MG Tablet 1 tablet with meals Orally Twice a dayNot-Taking/PRN Actos 15 MG Tablet 1 tablet Orally Once a dayNot-Taking/PRN Aspirin 81 MG Tablet Chewable 1 tablet Orally Once a dayMedication List reviewed and reconciled with the patient * Allergies:?Vikki alcaraz[Allergies Verified] Objective: * Vitals:?Ht: 5 ft 6 in, Wt: 1 85, BMI: 29.86, Shoe size: 9.5, BS: not taken, Wt- k.91 kg. * ???Past Orders: ???Lab:HEMOGLOBIN A1C (GLYCO HEMOGLOBIN) (Order Date - 07/28/2022) (Collection Date - 07/28/2022) ? Value Reference Range ?HEMOGLOBIN A1C (HH) 5.9 * Examination: ???Ophthalmology Referral: ?DIABETES EYE EXAM?Orthopedic: ?MUSCLE STRENGTH:?5/5 all groups in a symmetrical fashion , B/L.?FOOT MORPHOLOGY:? Pes Planus structure, No Charcot collapse/destruction noted at [facility].?DIGITAL DEFORMITIES:?Digital contracture, PIPJ, 2-5 B/L, incompl-reducible to push-up test, no over, nor underlapping, Reveals swelling/redness/enlargement of PIPJs, with evidence of shoe producing skin irritation , Digital contracture, PIPJ, 2-5 B/L, incompl-reducable to push-up test, no over, nor underlapping.?FOOTWEAR:?worn, non-supportive, shoe gear properties exacerbate patient's foot/toe deformity , worn, nonsupportive.?General Examination: ?FOOT EXAM:?Footwear Evaluation?Dermatologic: ?SKIN FINDINGS:? Skin shows sign(s) of, erythema, scaling, in a moccasin fashion, no fissure(s) present, B/L , Skin exam reveals Keratotic lesion(s) located at, Medial, IPJ, TA, Medial, IPJ, T5, SUB MTH (s), 1, B/L , Heel(s), B/L .?Vascular: ?DP PULSES:? 1/4, B/L.?PT PULSES:? 0/4, B/L.?CAPILLARY FILL TIME:? delayed, all digits, B/L.?SKIN TEMPERTURE GRADIENT OF THE LOWER EXTERMITIES:? decreased, cool to cool, proximal to distal, B/L.?HAIR GROWTH/TEXTURE/ELASTICITY/TURGOR:? decreased, B/L.?PIGMENTATION:? mottled, B/L.?EDEMA:? 2/4, non-pitting, without aching pain, B/L, Leg(s), Ankle(s), Feet.?Neurological: ?SENSORY:?Neurological exam reveals intact sensorium, pain sensation normal, vibration sensation intact, pinprick sensation is normal in the lower extremities, 5.07 monofilament test performed at plantar aspects of 5 varied sites per foot shows sensation, normal, B/L, Pt denies, anesthesia, burning, paresthesia, tingling, B/L.? Assessment: * Assessment: 1.?Other hammer toe(s) (acqu ired), right foot - M20.41 (Primary), Chronic problem, Worse (4),Rx Management (4)?2.?Other hammer toe(s) (acquired), left foot - M20.42, Chronic problem, Worse (4),Rx Management (4)?3.?Tinea pedis of both feet - B35.3, Acute problem, Uncomplicated (3),Rx drug management (4)?4.?Type 2 diabetes mellitus with diabetic peripheral angiopathy without gangrene - E11.51? Plan: * Treatment: 2.?Tinea pedis of both feet? Start Ciclopirox Olamine Cream, 0.77 %, 1 application, Externally, Twice a day, 30 days, 60, Refills 2.?? * Procedure Codes:? * Preventive Medicine:? ??Counseling:?Discussion:?-14: Office or other outpatient visit for the evaluation and management of an established patient, which required a medically appropriate history and/or examination and MODERATE level of DECISION MAKING for: 1 OR MORE CHRONIC PROBLEM(S) THATS WORSENING, 2 STABLE CHRONIC PROBLEMS, A NEWLY DIAGNOSED PROBLEM WITH UNCERTAIN PROGNOSIS, AN ACUTE COMPLICATED INJURY WITH MULTIPLE TREATMENT OPTIONS, OR AN ACUTE PROBLEM WITH ACCOMPANYING SYSTEMIC SYMPTOMS, THAT POSE(S) A MODERATE RISK OF MORBIDITY. THIS CONDITION MAY ALSO INCLUDE RX DRUG MANAGEMENT, OR A DECISON FOR MINOR SURGERY. The visit on the day of the encounter encompassed interpreting the data and educating the patient as to the nature of their condition, treatment options available according to their individual PMH, meds, allergies, and overall health/living conditions, as well as any potential risks or complications that may occur from a failure to adhere to, and participate in, the recommended course of therapy. The discussion included a complete verbal, and/or written explanation of the examination results, any x-rays taken, the proposed diagnosis, and outline of the treatment plan. A schedule for future care needs was also explained. The patient verbalized an understanding of the instructions at this time and agreed to be an active participant in their treatment. If the patient should think of any questions or concerns after the visit, I have encouraged the patient to call the office.?Digital Surgery:?Digital surgery was discussed with the patient, We elected to try conservative treatment at the present time, due to the patients medical history and increased asssociated post-operative risks.?Digital Treatment:?HT- I explained to the patient the possible etiologies of Hammertoes, including genetics/foot type/shoegear/activity level/exercise routine and the risks/benefits of all the different treatment options for their pain including: No treatment at all, Rest, Ice, New/supportive/wider/deeper Shoegear, Digital Padding/Strapping/Taping/Bracing/Gel protective sleeves, Foot/Ankle AFO Bracing, Stretching exercises, Deep Tissue Massage, Arch support/shoe inserts with splay metatarsal padding, and Custom orthoses. I insisted that any digital devices be removed daily and not worn overnight for safety. The patient is to carefully examine the toes daily for any skin irritation while using any splinting or padding device. The advantages and disadvantages of each option were discussed and the patients questions re: shoegear, padding, custom vs prefabricated inserts, activity level, and consistency in home treatment regimens for optimal success were answered to their verbally confirmed satisfaction.?Shoe Gear Counseling:?SHOE Rx - The patient was counseled in great detail on their muscoloskeletal foot and toe deformities which coincided with the dermatological presentations visualized on exam. We discussed how their deformities put the integrity of their feet at risk for potential pedal complications which makes the accomidative diabetic shoes and cutomizable inserts medically necessary. We discussed the different shoe and insert treatment types and options, as well as the important advantages for adhering to regularly wearing these accomidative devices daily. The patient was made aware of the fact that a failure to abide by these recommedations may be deleterious to their foot health as they are able to prevent many pedal complications such as skin irritation, skin ulceration, infection, and even loss of toe/foot/leg/or life. Time was also spent with the patient dispensing and discussing proper diabetic footcare techniques including daily skin moisturization, daily foot inspection for any interruption in skin integrity including open lesions, or sign of infection such as redness/malodor/drainage/swelling. Also discussed and recommended were procedures regarding daily shoe inspection for the presence of internal foreign bodies as well as any visualized irregular shoe or insert wear. Patient questions re: shoes, inserts, and self foot inspections were answered to their satisfaction as the patient verbally confirmed a full understanding of the above information. A Rx for Extra Depth Orthopedic Shoes with 3 pair of custom heat-molded inserts was dispensed.?Tinea Pedis:?The patient was counseled on the diagnosis, potential etiologies, and treatment options for their skin condition. We discussed the risks and benefits of each option from performing no treatment, to utilizing OTC topical skin creams, prescription topical creams, customized compounded topical medications, and, if necessary, to utilize oral antifungal therapy. We discussed the advantages and disadvantages of each possible treatment and importance for adherence to all the recommended therapies for optimum success and avoid potential complications such as open sore/infection/possible hospitalization. We discussed the potential effectiveness of each topical preparation as well as each ones possible side effects and/or patient medication interactions if oral therapy is selected. Patient questions re: the advantages and disadvantages of each treatment choice, medication use/dosage, successful outcomes, and application consistency were reviewed and the patient verbalized that all answers were clearly understood. The patient was told they can help alleviate symptoms by utilizing moisture absorbant innersoles with activated charcoal and baking soda, applying antifungal sprays daily, aerating toe web spaces at night by putting cotton or lambs wool between the toes, alternating shoe gear daily if possible so they can dry out, changing socks at least once during the day, wearing well-ventilated shoes or sandals. The patient has decided to apply antifungal skin creams to their feet as directed. Rx was sent to their pharmacy at the time of visit.? * Follow Up:?1 Year * Images: * Sign off status: Completed true * Provider:Panda Morel, DPNickolas Date:? Generated for Irai marcie/Alessandra/eTransmitting on:?05/09/2024 03:41 PM EST History and Physical Notes * HPI (History of Present Illness) Category Sub-Category Detail Notes Category Not es Toe pain Location: B/L feet Duration: several years Course: worse Aggravated by: shoes, any pressure Treatments: change in shoes Skin problems Location: B/L Duration: several days Course: worse Examination Category Sub-Category Detail Notes Category Not es Neurological SENSORY: Neurological exa m reveals intact sensorium, pain sensation normal, vibration sensation intact, pinprick sensation is normal in the lower extremities, 5.07 monofilament test performed at plantar aspects of 5 varied sites per foot shows sensation, normal, B/L, Pt denies, anesthesia, burning, paresthesia, tingling, B/L Dermatologic SKIN FINDINGS: Skin shows sign( s) of, erythema, scaling, in a moccasin fashion, no fissure(s) present, B/L , Skin exam reveals Keratotic lesion(s) located at, Medial, IPJ, TA, Medial, IPJ, T5, SUB MTH (s), 1, B/L , Heel(s), B/L Orthopedic FOOT MORPHOLOGY: Pes Planus stru cture, No Charcot collapse/destruction noted at MTJ FOOTWEAR: worn, non-supportive , shoe gear properties exacerbate patient's foot/toe deformity , worn, nonsupportive DIGITAL DEFORMITIES: Digital contracture , PIPJ, 2-5 B/L, incompl-reducible to push-up test, no over, nor underlapping, Reveals swelling/redness/enlargement of PIPJs, with evidence of shoe producing skin irritation , Digital contracture, PIPJ, 2-5 B/L, incompl-reducable to push-up test, no over, nor underlapping MUSCLE STRENGTH: 5/5 all groups in a symmetrical fashion , B/L General Examination FOOT EXAM: Lower Extrem ity Neurological Exam performed:: Yes Footwear Evaluation Footwear Evaluation performe d:: Yes Ophthalmology Referral DIABETES EYE EXAM Diabetic Retinopa thy Screening:: No Findings of Diabetic Eye Exam:: retinopa thy Vascular DP PULSES(B): 1/4, B/L PT PULSES(B): 0/4, B/L CAPILLARY FILL TIME: delayed, all digits , B/L TEMPERTURE GRADIENT(C): decreased, cool to cool, proximal to distal, B/L TROPHIC CONDITION-TEXTURE/ELASTICITY/TURGOR/HAIR GROWTH(B): decreased, B/L EDEMA(C): 2/4, non-pitting, wi thout aching pain, B/L, Leg(s), Ankle(s), Feet PIGMENTATION: mottled, B/L
--- OUTSIDE RECORDS SUMMARY | 2024-05-09 15:42 | XMS_ITS | Patient Health Record ---
Author Organization [facility] Address [address] [place] [address] Care Team Providers Care Associate Store Leader Name Role Phone Elida Siddiqui Primary Care Provider UnavailBrody Rosales Unavailable [phone] Clau Morel Unavailable [phone] Allergies Allergen (clinical drug ingredient) Drug/Non Drug Allergy documented on EMR Reaction Allergy Type Onset Date Status Penicillin Unknown Drug Allergy Active lisinopril Lisinopril Unknown Drug Allergy Activ e Results Component Value Reference Range Notes HEMOGLOBIN A1C (GLYCOHEMOGLO BIN) Reviewed date:02/22/2024 01:56:40 PM Interpretation: Performing Lab: Notes/Report: TOTAL HEMOGLOBIN (HGBA1C) 7.0 Reason For Referral No Information Medications Medication SIG (Take, Route, Frequency, Duration) Notes Start Date End Date Status Pioglitazone HCl 30 MG 1 tablet Orally O nce a day for 30 day(s) Not-Taking Actos 15 MG 1 tablet Orally Once a day for 30 day(s) Not-Taking Pregabalin 50 MG 1 capsule Orally Twi ce a day Not-Taking Janumet 50-500 MG 1 tablet with meals Orally Twice a day for 30 day(s) Not-Taking Folic Acid 1 MG 1 tablet Orally Once a day Active Lipitor 10 MG 1 tablet Orally Once a day for 30 day(s) Not-Taking Diovan 40 MG 3 tablets Orally Twi ce a day for 30 day(s) Not-Taking eliquis 5 mg Active Ciclopirox Olamine 0.77 % 1 application Externally Twice a day for 30 days Not-Taki ng Jardiance 25 MG 1 tablet Orally Once a day Active Extra Depth Orthopedic Shoes (1 Pair) with Customized Heat Molded Multidensity Innersoles (3 Pair) as directed Dx: NIDDM/PVD (E11.59), Hammertoe Foot Deformity (M20.41,M20.42), Preulcerative Skin Lesion(s) (L85.1) 06/19/2021 Active Tradjenta 5 MG 1 tablet Orally Once a day Active Vitamin D 1000 UNIT 1 capsule Orally Onc e a day for 30 day(s) Active Extra Depth Orthopedic Shoes, (1) Pair With (3) Pair Custom Heat Molded Multidensity Innersoles Dx: NIDDM/PVD(E11.51), Hammertoe Foot Deformity(M20.41,M20.42) , Preulcerative Skin Lesion(s)(L85.1) Wear Daily for 365 days 02/22/2024 Active Ezetimibe 10 MG 1 tablet Orally Once a day Active Vitamin B12 Active Aspirin 81 MG 1 tablet Orally Once a day for 30 day(s) Not-Taking Fenofibrate 160 MG 1 tablet Orally Once a day for 30 day(s) Active Clopidogrel Bisulfate 75 MG 1 tablet Orally Once a day for 30 day(s) Not-Taking Simvastatin 40 MG 1 tablet in the even ing Orally Once a day for 30 day(s) Not-Taking Atorvastatin Calcium 40 MG 1 tablet Orally Once a day for 30 day(s) Active metFORMIN HCl 1000 MG 1 tablet with a me al Orally Once a day for 30 day(s) Not-Taking amLODIPine Besylate 5 MG 1 tablet Orally Once a day for 30 day(s) Active Extra Depth Orthopedic Shoes (1 Pair) with Customized Heat Molded Multidensity Innersoles (3 Pair) as directed Dx: NIDDM (E11.9), Hammertoe Foot Deformity (M20.41,M20.42), Preulcerative Skin Lesion(s) (L85.1) 02/16/2023 Active Immunizations Vaccine Route Administration Date Status Comme nts COVID-19 Pfizer BioNTech Vaccine Unknown 03/16/2021 Administered 1st 07/11/20 2nd 08/11/20 Influenza Unknown 03/30/2021 Administered Influenza Unknown 01/28/2022 Administered Social History Tobacco Use: Social History Observation [...] Are you an other tobacco user? No Problems Problem Type SNOMED Code ICD Code Onset Dates Problem Status W/U Status Risk Notes Problem Acquired hammer toe of right foot (62727128002693 05) Other hammer toe(s) (acquired), right foot (M20.41) Active confirmed Problem Type 2 diabetes mellitus with peripheral angiopathy (660447005) Type 2 diabetes mellitus with diabetic peripheral angiopathy without gangrene (E11.51) Active confirmed Problem Acquired hammer toe of left foot ([id number] 03) Other hammer toe(s) (acquired), left foot (M20.42) Active confirmed Vital Signs Blood pressure diastolic 70 mm Hg 02/22/2024 Height 5 ft 6 in in 02/22/2024 Blood pressure systolic 120 mm Hg 02/22/2024 Weight 185 lbs 02/22/2024 BMI 29.86 kg/m2 02/22/2024 Encounters Encounter Location Date Provider Diagnosis [facility] [address] [address] 02/22/2024 Clau Maria Teresa Other hammer toe(s) (acquired), right foot M20.41 ; Other hammer toe(s) (acquired), left foot M20.42 and Type 2 diabetes mellitus with diabetic peripheral angiopathy without gangrene E11.51 Assessments Encounter Date Diagnosis (ICD Code) Assessment Notes Treatment Notes Treatment Clinical Notes Section Notes 02/22/2024 Other hammer toe(s) (acquired), right foot (ICD-10 - M20.41) Patient Educated with: DIABETIC FOOT CARE INSTRUCTIONS.p df (DIABETIC FOOT CARE INSTRUCTIONS.p df) 02/22/2024 Other hammer toe(s) (acquired), left foot (ICD-10 - M20.42) 02/22/2024 Type 2 diabetes mellitus with diabetic peripheral angiopathy without gangrene (ICD-10 - E11.51) Plan Of Treatment Pending Test Test Name Order Date [id number] NAIL, 6 OR MORE 06/19/2021 [id number] SKIN LESIONS, OVER 4 06/19/19 22 Next Appt Details Provider Name:Clau rBittney isaac, 02/22/2025 10:00:00 AM, [address] [place], [address], Insurance Providers Payer Name Payer Address Payer Phone Subscriber Number Group Number Insured Name Patient Relationship to Insured Coverage Start Date Coverage End Date [facility] [employer] SCO Claims [address] [place] [id number] Deondre Stein Self - patient is the insured Medical (General) History Medical History History ICD Code type II diabetes high blood pressure hypercholesterolemia cataracts Broken bones CAD (Cholesterol) Cataracts covid-19 Headaches/Migraines Stomach ulcer Measles Mumps Chicken pox Surgical History Surgery Date(Month/Year) carotid endarterectomy tonsillectomy torn bicep muscle artery RT 2 stent 2017 Hospitalization History Reason Date(Month/Year) kidney failure 03/2023
--- OUTSIDE RECORDS SUMMARY | 2024-05-09 15:42 | XMS_ITS ---
Author Organization [facility] Address [address] [place] [address] Care Team Providers Care Invoicing Specialist Name Role Phone Elida Siddiqui Primary Care Provider UnavailBrody Rosales Unavailable [phone] Clau Morel Unavailable [phone] Allergies Allergen (clinical drug ingredient) Drug/Non Drug Allergy documented on EMR Reaction Allergy Type Onset Date Status Penicillin Unknown Drug Allergy Active lisinopril Lisinopril Unknown Drug Allergy Activ e REASON FOR VISIT pcp-11/2023, Toe Irritation Medications Medication SIG (Take, Route, Frequency, Duration) Notes Start Date End Date Status Actos 15 MG 1 tablet Orally Once a day for 30 day(s) Not-Taking Janumet 50-500 MG 1 tablet with meals Orally Twice a day for 30 day(s) Not-Taking Lipitor 10 MG 1 tablet Orally Once a day for 30 day(s) Not-Taking Diovan 40 MG 3 tablets Orally Twi ce a day for 30 day(s) Not-Taking Aspirin 81 MG 1 tablet Orally Once a day for 30 day(s) Not-Taking Ciclopirox Olamine 0.77 % 1 application Externally Twice a day for 30 days Not-Taki ng Extra Depth Orthopedic Shoes (1 Pair) with Customized Heat Molded Multidensity Innersoles (3 Pair) as directed Dx: NIDDM/PVD (E11.59), Hammertoe Foot Deformity (M20.41,M20.42), Preulcerative Skin Lesion(s) (L85.1) 06/19/2021 Active Simvastatin 40 MG 1 tablet in the even ing Orally Once a day for 30 day(s) Not-Taking metFORMIN HCl 1000 MG 1 tablet with a me al Orally Once a day for 30 day(s) Not-Taking Extra Depth Orthopedic Shoes (1 Pair) with Customized Heat Molded Multidensity Innersoles (3 Pair) as directed Dx: NIDDM (E11.9), Hammertoe Foot Deformity (M20.41,M20.42), Preulcerative Skin Lesion(s) (L85.1) 02/16/2023 Active Pioglitazone HCl 30 MG 1 tablet Orally O nce a day for 30 day(s) Not-Taking Pregabalin 50 MG 1 capsule Orally Twi ce a day Not-Taking Vitamin D 1000 UNIT 1 capsule Orally Onc e a day for 30 day(s) Active Extra Depth Orthopedic Shoes, (1) Pair With (3) Pair Custom Heat Molded Multidensity Innersoles Dx: NIDDM/PVD(E11.51), Hammertoe Foot Deformity(M20.41,M20.42) , Preulcerative Skin Lesion(s)(L85.1) Wear Daily for 365 days 02/22/2024 Active Vitamin B12 Active Folic Acid 1 MG 1 tablet Orally Once a day Active Fenofibrate 160 MG 1 tablet Orally Once a day for 30 day(s) Active Clopidogrel Bisulfate 75 MG 1 tablet Orally Once a day for 30 day(s) Not-Taking Atorvastatin Calcium 40 MG 1 tablet Orally Once a day for 30 day(s) Active amLODIPine Besylate 5 MG 1 tablet Orally Once a day for 30 day(s) Active eliquis 5 mg Active Jardiance 25 MG 1 tablet Orally Once a day Active Tradjenta 5 MG 1 tablet Orally Once a day Active Ezetimibe 10 MG 1 tablet Orally Once a day Active Social History Tobacco Use: Social History [...] Signs Height 5 ft 6 in in 02/22/2024 Weight 185 lbs 02/22/2024 BMI 29.86 kg/m2 02/22/2024 Blood pressure systolic 120 mm Hg 02/22/20 24 Blood pressure diastolic 70 mm Hg 024 Encounters Encounter Location Date Provider Diagnosis [facility] [place] [address] [place] [address] 02/22/2024 Clau Morel Other hammer toe(s) (acquired), right [...] Stop Date Notes Extra Depth Orthopedic Shoes , (1) Pair With (3) Pair Custom Heat Molded Multidensity Innersoles Dx: NIDDM/PVD(E11.51), Hammertoe Foot Deformity(M20.41,M20.42), Preulcerative Skin Lesion(s)(L85.1) Wear Daily for 365 days 02/22/2024 Treatment Notes Assessment Notes Other hammer toe(s) (acquired), right fo ot Patient Educated with: DIABETIC FOOT CARE INSTRUCTIONS.pdf (DIABETIC FOOT CARE INSTRUCTIONS.pdf) Next Appt Details Follow Up: 1 Year, Reason: Provider Name:Clau isaac, 02/22/2025 10:00:00 AM, [address] [place] [address], [address], Progress Notes * Deondre TRUJILLO ADOB:1945 (78 yo M)Acc No.[id number]:02/22/2024 Progress Note Patient:?Deondre Trujillo Provider:?Clau Morel DPM :1945???Age:78 Y???Sex:Male Jose e:02/22/2024 [address] [address] [place] Pcp:Elida Siddiqui Subjective: * Chief Complaints: * ???Pcp-11/2023Toe Irritation * HPI: ???Toe pain:?Location:?B/L feet.?Duration:?several years.?Course:?worse.?Aggravated by:?shoes, any pressure.?Treatments:?change in shoes.? * ROS:?General/Constitutional:?Nausea?denies.?Vomiting?denies.?Hunger Thirst?denies.?Loss appetite?denies.?Chills?denies.?Fatigue?denies.?Fever?denies.?Night Sweats?denies.?Unexplained weight loss?denies.?Unexplained weight gain?denies.?HEENTM:?Dentures?denies.?Dizziness?denies.?Glasses/contacts?admits.?Retinopathy?de nies.?Blurred/double vision?denies.?TMJ?denies.?Discharge/drainage?denies.?Implants?denies.?Sore throat?denies.?Dental implants?denies.?Hard of hearing ?admits.?Difficulty chewing/swallowing/speaking?denies.?Nose bleeds?denies.?Sore mouth?denies.?Respiratory:?On Oxygen?denies.?Pneumonia/pleurisy?denies.?Bronchitis?denies.?Emphysema?denies.?C oughing?denies.?Cough blood?denies.?Shortness of breath?denies.?Wheezing?denies.?Cardiovascular:?Pacemaker?denies.?MVP?denies.?WPW?denies.?CHF?denies.?Heart attack?denies.?Septal defect?denies.?Rapid beat?denies.?Chest pain ?denies.?Atrial Fib.?denies.?Murmur/Palpitations?denies.?Gastrointestinal:?Hemorrhoids?denies.?Stomach/Abdominal pain?denies.?Dark blood stool?denies.?Irritable bowel ?denies.?Constipation?denies.?Diarrhea?denies.?Hematology:?Swelling?admits.?Clots?denies.?Varicose Veins?admits.?Bruising?admits.?Bleeding problem?admits, on anticoagulants.?Genitourinary:?Blood urine?denies.?Frequent/Painfu/urination/bladder control?denies.?Kidney stones?denies.?Infection (UTI)?denies.?Nephropathy?denies.?sex trans dis (STD)?denies.?Prostate?denies.?Musculoskeletal:?Hammertoes?admits.?Bunions?denies.?Back Pain?denies.?Muscle Cramps/ Resting?denies.?Muscle cramps / walking?denies.?Generalized aches and pains?denies.?Weakness?denies.?Integ.:?Chamberlain?denies.?Scars?denies.?Corns/calluses?admits.?Ingrown nails?admits.?Painful nails?admits.?Open Sores?denies.?Rashes?denies.?Neurologic:?Difficulty sleeping?denies.?Brain disorder?denies.?Numbness?denies.?Balance trouble?denies.?Confusion?denies.?Fainting/blackouts?denies.?Tingling?admits.?Tr emors?denies.? * Medical History:? * Surgical History:?carotid en darterectomy tonsillectomy torn bicep muscle artery RT 2 stent 2017 * Hospitalization/Major Diagno stic Procedure:?kidney failure 03/2023 * Family History:?Mother: dece ased.?Father: .?Paternal Grand [...] month (2 points) ?Points?2 ?Interpretation?Negative ???Miscellaneous:?Caffeine: yes, 1 cup every other day. ?no Children. ?Exercise: yes, walking. ?Marital status: . ?Occupation: [employer] * Medications:?TakingEzetimibe 10 MG Tablet 1 tablet Orally Once a dayTradjenta 5 MG Tablet 1 tablet Orally Once a dayJardiance 25 MG Tablet 1 tablet Orally Once a dayeliquis 5 mg Tablet amLODIPine Besylate 5 MG Tablet 1 tablet [...] Hammertoe Foot Deformity (M20.41,M20.42), Preulcerative Skin Lesion(s) (L85.1)Extra Depth Orthopedic Shoes (1 Pair) with Customized Heat Molded Multidensity Innersoles (3 Pair) as directed Dx: NIDDM (E11.9), Hammertoe Foot Deformity (M20.41,M20.42), Preulcerative Skin Lesion(s) (L85.1)Taking Ezetimibe 10 MG Tablet 1 tablet Orally Once a dayTaking Tradjenta 5 MG Tablet 1 tablet Orally Once a dayTaking Jardiance 25 MG Tablet 1 tablet Orally Once a dayTaking eliquis 5 mg Tablet Taking amLODIPine Besylate 5 MG Tablet 1 tablet [...] Foot Deformity (M20.41,M20.42), Preulcerative Skin Lesion(s) (L85.1)Taking Extra Depth Orthopedic Shoes (1 Pair) with Customized Heat Molded Multidensity Innersoles (3 Pair) as directed Dx: NIDDM (E11.9), Hammertoe Foot Deformity (M20.41,M20.42), Preulcerative Skin Lesion(s) (L85.1)Not-Taking/PRNClopidogrel Bisulfate 75 MG Tablet 1 tablet Orally Once a dayPregabalin 50 MG Capsule 1 capsule Orally Twice a dayPioglitazone HCl 30 MG Tablet 1 tablet Orally Once a dayCiclopirox Olamine 0.77 % Cream 1 application Externally Twice a daymetFORMIN HCl 1000 MG Tablet 1 tablet with [...] List reviewed and reconciled with the patientNot-Taking/PRN Clopidogrel Bisulfate 75 MG Tablet 1 tablet Orally Once a dayNot-Taking/PRN Pregabalin 50 MG Capsule 1 capsule Orally Twice a dayNot- Taking/PRN Pioglitazone HCl 30 MG Tablet 1 tablet Orally Once a dayNot-Taking/PRN Ciclopirox Olamine 0.77 % Cream 1 application Externally Twice a dayNot-Taking/PRN metFORMIN HCl 1000 MG Tablet 1 tablet [...] reviewed and reconciled with the patient * Allergies:?PenicillinLivonnie alcaraz[Allergies Verified] Objective: * Vitals:?Ht: 5 ft 6 in, Wt: 1 85, BMI: 29.86, Shoe size: 9.5, BP: 120/70 mm Hg, BS: no taken, Wt-k.91 kg. * ???Past Orders: ???Lab:HEMOGLOBIN A1C (GLYCO HEMOGLOBIN) (Order Date - 11/28/2023) (Collection Date - 11/28/2023) ? Value Reference Range ?TOTAL HEMOGLOBIN (HGBA1C) 7.0 * Examination: ???Ophthalmology Referral: ?DIABETES EYE EXAM?Orthopedic: ?MUSCLE STRENGTH:?5/5 all groups in a symmetrical fashion , B/L.?FOOT MORPHOLOGY:? Pes Planus structure, No Charcot collapse/destruction noted at MTJ.?DIGITAL DEFORMITIES:?Digital contracture, PIPJ, 2-5 B/L, incompl-reducible to push-up test, no over, nor underlapping,?there is?evidence of shoe producing skin irritation , Digital contracture, PIPJ, 2-5 B/L, incompl-reducible to push-up test, no over, nor underlapping, Reveals swelling/redness/enlargement of PIPJs, with evidence of shoe producing skin irritation , Digital contracture, PIPJ, 2-5 B/L, incompl-reducable to push-up test, no over, nor underlapping.?FOOTWEAR:?worn, non-supportive, shoe gear properties exacerbate patient's foot/toe deformity , worn, non-supportive, shoe gear properties exacerbate patient's foot/toe deformity , worn, nonsupportive.?General Examination: ?FOOT EXAM:?Footwear Evaluation?Dermatologic: ?SKIN FINDINGS:?Skin exam reveals normal color, texture, elasticity, and turgor. There are no masses, nor excrescences. The interspaces are clear, B/L.?Vascular: ?DP PULSES(B):? 1/4, B/L.?PT PULSES(B):? 0/4, B/L.?CAPILLARY FILL TIME:? delayed, all digits, B/L.?TROPHIC CONDITION-TEXTURE/ELASTICITY/TURGOR/HAIR GROWTH(B):? decreased, B/L.?TEMPERTURE GRADIENT(C):? decreased, cool to cool, proximal to distal, B/L.?PIGMENTATION:? mottled, B/L.?EDEMA(C):? 2/4, non-pitting, without aching pain, B/L, Leg(s), [...] - M20.42, Chronic problem, Worse (4),Rx Management (4)?3.?Type 2 diabetes mellitus with diabetic peripheral angiopathy without gangrene - E11.51? Plan: * Treatment: * Procedure Codes:? * Preventive Medicine:? ??Counseling:?Discussion:?-14: [...] 3 pair of custom heat-molded inserts was dispensed.?Ulcer:?.? * Follow Up:?1 Year * Images: * Sign off status: Completed true * Provider:?Clau Morel, DPM Date:? Generated for Carmine jack/Alessandra/Yue on:?05/09/2024 03:41 PM EST History and Physical Notes * HPI (History of Present Illness) Category Sub-Category Detail Notes Category Not es Toe pain Location: B/L feet Duration: several years Course: worse Aggravated by: shoes, any pressure Treatments: change in shoes Examination Category Sub-Category Detail Notes Category Not es Neurological SENSORY: Neurological exa m reveals intact sensorium, pain sensation normal, vibration sensation intact, pinprick sensation is normal in the lower extremities, 5.07 monofilament test performed at plantar aspects of 5 varied sites per foot shows sensation, normal, B/L, Pt denies, anesthesia, burning, paresthesia, tingling, B/L Dermatologic SKIN FINDINGS: Skin exam reveal s normal color, texture, elasticity, and turgor. There are no masses, nor excrescences. The interspaces are clear, B/L Orthopedic FOOT MORPHOLOGY: Pes Planus stru cture, No Charcot collapse/destruction noted at MTJ FOOTWEAR: worn, non-supportive , shoe gear properties exacerbate patient's foot/toe deformity , worn, non-supportive, shoe gear properties exacerbate patient's foot/toe deformity , worn, nonsupportive DIGITAL DEFORMITIES: Digital contracture , PIPJ, 2-5 B/L, incompl-reducible to push-up test, no over, nor underlapping, there is evidence of shoe producing skin irritation , Digital contracture, PIPJ, 2-5 B/L, incompl-reducible to push-up [...] Yes Ophthalmology Referral DIABETES EYE EXAM Diabetic Reti nopathy Screening:: Yes 2023 Findings of Diabetic Eye Exam:: no retin opathy Vascular DP PULSES(B): 1/4, B/L PT PULSES(B): 0/4, B/L CAPILLARY FILL TIME: delayed, all digits , B/L TEMPERTURE GRADIENT(C): decreased, cool to cool, proximal to distal, B/L TROPHIC CONDITION-TEXTURE/ELASTICITY/TURGOR/HAIR GROWTH(B): decreased, B/L EDEMA(C): 2/4, non-pitting, wi thout aching pain, B/L, Leg(s), Ankle(s), Feet PIGMENTATION: mottled, B/L
--- OUTSIDE RECORDS SUMMARY | 2024-05-09 15:42 | XMS_ITS ---
Author Organization [facility] Address [address] [place] [address] Care Team Providers Care Sales Representative Sales Manager Name Role Phone Elida Siddiqui Primary Care Provider Brody Carmona Unavailable [phone] Clau Morel [phone] Encounters Encounter Location Date Provider Diagnosis [address] [address] 02/22/2024 Clau Morel Plan Of Treatment Next Appt Details Provider Name:Clau isaac, 02/22/2025 10:00:00 AM, [address] [place] [address], [phone], Progress Notes * Deondre TRUJILLO ADOB:1945 (78 yo M)Acc No.[id number]:02/22/2024 Progress Note Patient:?LORIEYesenia Deondre Brittney Provider:?Clau Morel DPM :1945???Age:78 Y???Sex:Male Jose e:02/22/2024 Address[place] [place] Pcp:Elida Siddiqui Subjective: * Chief Complaints: * ??? * Medical History:? Objective: * Vitals:? Assessment: Plan: * Treatment: * Images: * The named appointment provid er may or may not be the originator of this progress note, and it is not deemed complete until electronically signed by the appointment provider. Sign off status: Pending * Provider:?Clau Morel DPM Date:? Generated for Carmine jack/Alessandra/Yue on:?05/09/2024 03:41 PM EST
== END 2024-05-07 13:59 | disposition home or self-care (01) ==
PROVIDERS: PCP Internal Medicine; Visit Provider Internal Medicine
DX: G47.33 Obstructive sleep apnea (adult) (pediatric) (principal); Z99.89 Dependence on other enabling machines and devices; J43.9 Emphysema, unspecified
CPT/HCPCS: 99213

== ENCOUNTER → 2024-05-07 13:16 | Outpatient (BNVA) | payer MEDICARE, SELFPAY | PROVIDERS: PCP Internal Medicine; Visit Provider Internal Medicine | DX: G47.33 Obstructive sleep apnea (adult) (pediatric) (principal); J43.9 Emphysema, unspecified; Z99.89 Dependence on other enabling machines and devices | CPT/HCPCS: 99212 ==

== ENCOUNTER 2024-05-28 10:31 | Outpatient (AMB) | payer MEDICARE, SELFPAY ==
--- OUTSIDE RECORDS SUMMARY | 2024-05-28 10:35 | XMS_ITS ---
Author Organization [facility] Address [address] [place] [address] Care Team Providers Care Orthopedic Specialist Name Role Phone Elida Siddiqui Primary Care Provider UnavailBrody Rosales Unavailable [phone] Clau Morel Unavailable [phone] Allergies Allergen (clinical drug ingredient) Drug/Non Drug [...] 02/16/2023 Encounters Encounter Location Date Provider Diagnosis [facility] [place] [address] [place] [address] 02/16/2023 Clau Morel Other hammer toe(s) (acquired), [...] Reason: Provider Name:Clau isaac, 02/22/2025 10:00:00 AM, [address] [place] [address], [address], Progress Notes * Deondre TRUJILLO ADOB:1945 (77 yo M)Acc No.[id number]:02/16/2023 Progress Note Patient:?Deondre Trujillo Provider:?Clau Morel DPM :1945???Age:77 Y???Sex:Male Jose e:02/16/2023 Address:[address] [place], [place] [id number] Pcp:Elida Siddiqui Subjective: * Chief Complaints: * [...] Morel, DPNickolas Date:? Generated for Irai marcie/Alessandra/eTransmitting on:?05/28/2024 10:34 AM EST History and Physical Notes * HPI [...] Diabetic Eye Exam:: retinopa thy Vascular DP PULSES (B): 1/4, B/L PT PULSES (B): 0/4, B/L CAPILLARY FILL TIME: delayed, all digits , B/L TEMPERTURE GRADIENT (C): decreased, cool to cool, proximal to distal, B/L TROPHIC CONDITION-TEXTURE/ELASTICITY/TURGOR/HAIR GROWTH (B): decreased, B/L EDEMA (C): 2/4, non-pitting, wi thout aching pain, B/L, Leg(s), Ankle(s), Feet PIGMENTATION: mottled, B/L
--- OUTSIDE RECORDS SUMMARY | 2024-05-28 10:35 | XMS_ITS | Patient Health Record ---
Author Organization [facility] Address [address] [place] [address] Care Team Providers Care Layout Technician Name Role Phone Elida Siddiqui Primary Care Provider UnavailBrody Rosales Unavailable [phone] Clau Morel Unavailable [phone] Allergies Allergen (clinical drug ingredient) Drug/Non Drug [...] Problem Acquired hammer toe of right foot (06839164741042 05) Other hammer toe(s) (acquired), right foot (M20.41) Active confirmed Problem Type 2 diabetes mellitus with peripheral angiopathy (271171543) Type 2 diabetes mellitus with diabetic peripheral angiopathy without gangrene (E11.51) Active confirmed Problem Acquired hammer toe of left foot (59363756148641 03) Other hammer toe(s) (acquired), left foot (M20.42) Active confirmed Vital Signs Blood pressure diastolic 70 mm Hg 02/22/2024 Height 5 ft 6 in in 02/22/2024 Blood pressure systolic 120 mm Hg 02/22/2024 Weight 185 lbs 02/22/2024 BMI 29.86 kg/m2 02/22/2024 Encounters Encounter Location Date Provider Diagnosis [facility] [address] [address] 02/22/2024 Clau Maria Teresa Other hammer toe(s) [...] Treatment Pending Test Test Name Order Date [id number] NAIL, 6 OR MORE 06/19/2021 [id number] SKIN LESIONS, OVER 4 06/19/19 22 Next Appt Details Provider Name:Clau Brittney isaac, 02/22/2025 10:00:00 AM, [address] [place], [address], Insurance Providers Payer Name Payer Address Payer Phone Subscriber Number Group Number Insured Name Patient Relationship to Insured Coverage Start Date Coverage End Date [facility] [employer] Claims [address] [place] [address] [id number] Deondre Stein Self - patient is the [...]
--- OUTSIDE RECORDS SUMMARY | 2024-05-28 10:35 | XMS_ITS ---
Author Organization [facility] Address [address] [place] [address] Care Team Providers Care Tool Programmer Name Role Phone Elida Siddiqui Primary Care Provider Brody Carmona Unavailable [phone] Clau Morel [phone] Encounters Encounter Location Date Provider Diagnosis [address] [address] 02/22/2024 Clau Morel Plan Of Treatment Next Appt Details Provider Name:Clau isaac, 02/22/2025 10:00:00 AM, [address] [place] [address], [phone], Progress Notes * Deondre TRUJILLO ADOB:1945 (78 yo M)Acc No.[id number]:02/22/2024 Progress Note Patient:?LORIEYesenia Deondre Brittney Provider:?Clau Morel DPM :1945???Age:78 Y???Sex:Male Jose e:02/22/2024 Address:[address] [place] Pcp:Elida Siddiqui Subjective: * Chief Complaints: * ??? * Medical History:? Objective: * Vitals:? Assessment: Plan: * Treatment: * Images: * The named appointment provid er may or may not be the originator of this progress note, and it is not deemed complete until electronically signed by the appointment provider. Sign off status: Pending * Provider:?Clau Morel DPM Date:? Generated for Carmine jack/Alessandra/Yue on:?05/28/2024 10:34 AM EST
--- OUTSIDE RECORDS SUMMARY | 2024-05-28 10:35 | XMS_ITS ---
Author Organization [facility] Address [address] [place] [address] Care Team Providers Care Edi Programmer Analyst Name Role Phone Elida Siddiqui Primary Care Provider UnavailBrody Rosales Unavailable [phone] Clau Morel Unavailable [phone] Allergies Allergen (clinical drug ingredient) Drug/Non Drug [...] 024 Encounters Encounter Location Date Provider Diagnosis [facility] [place] [address] [place] [address] 02/22/2024 Clau Morel Other hammer toe(s) (acquired), [...] Reason: Provider Name:Clau isaac, 02/22/2025 10:00:00 AM, [address] [place] [address], [phone], Progress Notes * Deondre TRUJILLO ADOB:1945 (78 yo M)Acc No.[id number]:02/22/2024 Progress Note Patient:?Deondre Trujillo Provider:?Clau Morel DPM :1945???Age:78 Y???Sex:Male Jose e:02/22/2024 Address[facility] [address] [place] Pcp:Elida Siddiqui Subjective: * Chief Complaints: * [...] Morel, DPM Date:? Generated for Carmine jack/Alessandra/Yue on:?05/28/2024 10:34 AM EST History and Physical [...] Eye Exam:: no retin opathy Vascular DP PULSES (B): 1/4, B/L PT PULSES (B): 0/4, B/L CAPILLARY FILL TIME: delayed, all digits , B/L TEMPERTURE GRADIENT (C): decreased, cool to cool, proximal to distal, B/L TROPHIC CONDITION-TEXTURE/ELASTICITY/TURGOR/HAIR GROWTH (B): decreased, B/L EDEMA (C): 2/4, non-pitting, wi thout aching pain, B/L, Leg(s), Ankle(s), Feet PIGMENTATION: mottled, B/L
--- NOTE | 2024-05-28 10:36 | HO.NEPHOV_ITS ---
Vital Signs 05/28/24 10:37 Height 5 ft 6 in Weight 177 lb 6 oz BMI 28.6 BP 104/60 Blood Pressure Location Rt brachial Position Sitting Pulse 58 Pulse Source Pulse Oximeter Pulse Oximetry (%) 94 Oxygen Delivery Method Room Air Intake Visit Reasons: 3 mon follow up/ LVM Table Tender Sludge Required: No Accompanied by: Self / Same As Patient Allergies lisinopril Allergy (Unknown, Verified 05/28/24 10:37) Unknown Penicillins [PENICILLINS] Allergy (Unknown, Verified 05/28/24 10:37) UNKNOWN REACTION-CHILDHOOD ALLERGY Medication List - Last Reconciled 05/28/24 by Damián Gillespie MD amiodarone 200 mg PO DAILY apixaban (Eliquis) 5 mg PO BID 30 days atorvastatin 40 mg PO DAILY [AUTO PAP 6-20 cm H2O humidified AIR As directed] capsaicin 0.1% (Arthritis Pain Relief (capsaicin)) 1 appl topical TID cholecalciferol (vitamin D3) 75 mcg PO MOWEFR@1000 cyanocobalamin (vitamin B-12) 2,500 mcg PO DAILY empagliflozin 10 mg PO DAILY ezetimibe 10 mg PO DAILY fenofibrate 160 mg PO DAILY folic acid 0.4 mg PO DAILY lidocaine-prilocaine 2.5-2.5 % 1 appl topical ONCE 1 day linagliptin (Tradjenta) 5 mg PO DAILY 30 days pregabalin 100 mg PO TID 30 days HPI Comments Details: 77-year-old male with AFib on Eliquis, JITENDRA on CPAP, peripheral arterial disease, coronary artery disease, wxr-acsjuhq-zjygpjwul diabetes mellitus, CKD stage 3, congestive heart failure with reduced ejection fraction Was recently admitted with acute kidney injury with a serum creatinine of more than 4 mg/dL. Prior to this he was inadvertently taking excessive dose of Lasix. He was supposed to be on 40 mg once a day but he was taking twice a day. During hospitalization diuretics were held he was given IV fluids. Renal function improved in the recent creatinine is 1.9 mg/dL. Currently renal function is close to baseline. He has not on any diuretics. [facility] Medical History Cardiomyopathy Cataracts, bilateral Chronic otitis media Peripheral vascular disease Type 2 diabetes mellitus with hyperglycemia Erectile dysfunction Post herpetic neuralgia COPD (chronic obstructive pulmonary disease) Obstructive sleep apnea Rotator cuff tear, left Carotid stenosis Tubular adenoma of colon Hypertension Hypercholesterolemia PVCs (premature ventricular contractions) NICM (nonischemic cardiomyopathy) CAD (coronary artery disease) Surgical History History of cardiac radiofrequency ablation History of colonoscopy History of cataract surgery History of repair of rotator cuff History of cardiac catheterization History of tonsillectomy History of carotid endarterectomy Family History Father H/O ETOH abuse Hypertension Mother Hypertension Brother Diabetes Brother No problems noted. Sister No problems noted. Sister No problems noted. Social History Household Members: None Housing: House Do you presently have visiting nurse or other home services: No Alcohol intake: current Alcohol intake frequency: holidays/special occasions only Alcohol type: beer Comment: no instruments used Patient Tobacco Use Status: Never used Tobacco Tobacco use type: Cigarette e-Cigarette/Vaping Use: Never Used Second Hand Smoke Exposure: No Advance Directives Date on File: 11/17/21 service: No Current occupational status: employed Cognitive needs: No Hearing needs: Yes Vision needs: Yes Physical Exam Vital Signs: Last Vital Signs Pulse 58 05/28/24 10:37 BP 104/60 05/28/24 10:37 Pulse Ox 94 05/28/24 10:37 Oxygen Delivery Method Room Air 05/28/24 10:37 BMI result Body Mass Index 28.6 Results Reviewed Nephrology Results: Hgb 13.5 g/dl (14.0-18.0) L 03/26/24 WBC 6.9 X10*3/uL (4.8-10.8) 03/26/24 Plt Count 197 X10*3/uL (160-400) 03/26/24 Sodium 141 mmol/L (135-145) 03/26/24 Potassium 4.2 mmol/L (3.3-5.1) 03/26/24 Chloride 107 mmol/L (96-108) 03/26/24 Carbon Dioxide 28 mmol/L (22-29) 03/26/24 BUN 23 mg/dL (9-16) H 03/26/24 Creatinine 1.81 mg/dL (0.5-1.4) H 03/26/24 Calcium 9.4 mg/dL (8.4-10.2) 03/26/24 Assessment & Plan Assessment & Plan (1) CKD (chronic kidney disease) stage 3, GFR 30-59 ml/min: Code(s): N18.30 - Chronic kidney disease, stage 3 unspecified Category: Medical Qualifiers: Chronic kidney disease stage 3 subtype: stage 3b (GFR 30-44) Qualified Code(s): N18.32 - Chronic kidney disease, stage 3b (2) Congestive heart failure: Comment: Preserved ejection fraction Code(s): I50.9 - Heart failure, unspecified Category: Medical Qualifiers: Heart failure type: diastolic Heart failure chronicity: chronic Qualified Code(s): I50.32 - Chronic diastolic (congestive) heart failure (3) Acute kidney injury superimposed on chronic kidney disease: Code(s): N17.9 - Acute kidney failure, unspecified; N18.9 - Chronic kidney disease, unspecified Category: Medical Plan Elderly man with acute kidney injury superimposed on chronic kidney disease. Acute kidney injury was primarily due to hypoperfusion from high dose of diuretics and volume depletion. After holding the diuretics and with cautious hydration renal function improved. At present he appears euvolemic. BP is rather low continue to hold LAsix Cr stable at 1.8 I have encouraged him to keep watching his blood pressure and weights at home. Orders: Orders Basic Metabolic Panel 3 Months N18.32 - Chronic kidney disease, stage 3b Complete Blood Count no Diff 3 Months N18.32 - Chronic kidney disease, stage 3b Coding Level of Care Code Est Pt Level 4 (38805) Diagnoses Stage 3b chronic kidney disease N18.32 Chronic kidney disease stage 3 subtype: stage 3b (GFR 30-44) Chronic diastolic congestive heart failure I50.32 Heart failure type: diastolic Heart failure chronicity: chronic Acute kidney injury superimposed on chronic kidney disease N17.9; N18.9
[2024-05-28 10:37] VITALS: BP 104/60; PULSE 58; O2SAT 94; BMI 28.6
== END 2024-05-28 10:51 | disposition home or self-care (01) ==
PROVIDERS: PCP Internal Medicine; Visit Provider Internal Medicine Hypertension Specialist
DX: N17.9 Acute kidney failure, unspecified (principal); N18.32 Chronic kidney disease, stage 3b; I50.32 Chronic diastolic (congestive) heart failure
CPT/HCPCS: 99214

== ENCOUNTER → 2024-05-28 10:31 | Outpatient (BNVA) | payer MEDICARE, SELFPAY | PROVIDERS: PCP Internal Medicine; Visit Provider Internal Medicine Hypertension Specialist | DX: N18.32 Chronic kidney disease, stage 3b (principal); I50.32 Chronic diastolic (congestive) heart failure; N17.9 Acute kidney failure, unspecified | CPT/HCPCS: 99212 ==

== ENCOUNTER 2024-06-25 09:44 | Outpatient (AMB) | payer MEDICARE, OTHER, SELFPAY ==
--- NOTE | 2024-06-25 09:45 | MHC.OFFVIS ---
Vital Signs 06/25/24 09:49 Height 5 ft 6 in Weight 175 lb BMI 28.2 BP 116/58 L Blood Pressure Location Rt brachial Position Sitting Pulse 59 Pulse Source Pulse Oximeter Intake Visit Reasons: Qutenza Intake Note: Pain today 07/09 String Studies Director Required: No Accompanied by: Self / Same As Patient Allergies lisinopril Allergy (Unknown, Verified 06/25/24 09:49) Unknown Penicillins [PENICILLINS] Allergy (Unknown, Verified 06/25/24 09:49) UNKNOWN REACTION-CHILDHOOD ALLERGY HPI Comments Details: Patient presents for 2nd application of capsaicin 8% topical patch for ongoing post herpetic neuralgia in the T10-T11 distribution on the right side. He reports minimal pain relief for few days after last application and therefore does not want to continue with Qutenza. Patient was informed that due to the chronic nature of PHN, ongoing treatments with Qutenza every 3 months may be necessary to achieve optimal benefit. Patient declined ongoing treatments at this time and is interested to proceed with therapeutic GRACY injection as next steps. He also reports partial benefit with Lyrica. Denies any recent cough, cold, infection, fever or other significant changes in medical history since last office visit. PRIOR: Patient presents today to discuss thoracic and lumbar x-ray results. Patient continues to endorse neuropathic pain around his right ribs and right mid abdomen pain. He has been in regular contact with [employer] representatives to adjust his programming and obtain more precise brace garmet to keep his device in proper location. Xrays were reviewed today with patient and are noted below. Patient is interested to restart Qutenza patch for PHN prior to injections. He also reports lower back pain with bending or walking. Denies radicular symptoms to his lower extremities. Denies any recent cough, cold, infection, fever, any significant changes in her medical history, medications or recent hospitalizations. PRIOR: Patient is a pleasant 78 years old male presents today for re-establishing care with our office. He was last seen in our office summer with the plan for SCS implant for a painful post-herpetic neuralgia. Patient had good results with the SCS trial providing him 70-80% pain relief per chart review. Patient reports he had a [employer] PNS implant placed on 01/2020 at [facility] with multiple program re-adjustments without significant pain improvement. He initially developed right sided shingles rash in 03/2017 in T10-T11 distribution as he shows this today and has persistent and residual burning pain with tingling around his right ribs extending into his right mid-abdomen. Patient reports he lost his in July this year and has been having increased levels of stress and pain. Pain had been worsening over the last year without the recurrence of any new rashes. Patient tried and failed T11-T12 GRACY on 05/02/18, 8% Qutenza patch application on 09/19/18, gabapentin, numerous topical products, CBD oil, lidocaine patches, TENS unit and acupuncture without any benefit. Denies any recent cough, cold, infection, fever, any significant changes in her medical history, medications or recent hospitalizations. Reports mild low back pain without radiation into his lower extremities. Location: Right side of abdomen Duration: Chronic pain for 5 years, shingles in 2016 Characteristics of symptom or complaint: Aching, stabbing, burning, tingling, sharp Aggravating or associated factors: Touch, cold or damp weather Relieving factors: CBD oil, gabapentin, Icyhot, lidocaine, pregabalin 100 mg TID Treatment: Chiroptactor, acupuncture, TENS unit, [employer] PNS implant [facility] Medical History Cardiomyopathy Cataracts, bilateral Chronic otitis media Peripheral vascular disease Type 2 diabetes mellitus with hyperglycemia Erectile dysfunction Post herpetic neuralgia COPD (chronic obstructive pulmonary disease) Obstructive sleep apnea Rotator cuff tear, left Carotid stenosis Tubular adenoma of colon Hypertension Hypercholesterolemia PVCs (premature ventricular contractions) NICM (nonischemic cardiomyopathy) CAD (coronary artery disease) Surgical History History of cardiac radiofrequency ablation History of colonoscopy History of cataract surgery History of repair of rotator cuff History of cardiac catheterization History of tonsillectomy History of carotid endarterectomy Family History Father H/O ETOH abuse Hypertension Mother Hypertension Brother Diabetes Brother No problems noted. Sister No problems noted. Sister No problems noted. Social History Household Members: None Housing: House Do you presently have visiting nurse or other home services: No Alcohol intake: current Alcohol intake frequency: holidays/special occasions only Alcohol type: beer Comment: no instruments used Patient Tobacco Use Status: Never used Tobacco Tobacco use type: Cigarette e-Cigarette/Vaping Use: Never Used Second Hand Smoke Exposure: No Advance Directives Date on File: 11/17/21 service: No Current occupational status: employed Cognitive needs: No Hearing needs: Yes Vision needs: Yes Review of Systems Const All systems reviewed & are unremarkable except as noted in HPI and below Physical Exam General: Appears afebrile. Alert and oriented. Mood and affect appropriate. Follows and participates in conversation appropriately. Respiratory effort is unlabored. No cough. Able to transition from sit to stand unassisted. Ambulates with bilaterally normal heel strike and toe off. Resp Effort & Inspection: normal respiratory effort, able to speak in complete sentences, no cough and no respiratory distress GI Inspection: Yes normal to inspection, No distended and Yes obesity Palpation (GI): Soft to palpation, nontender and no guarding General: Yes no CVA tenderness Back/Spine/Pelvis Other: Limited lumbar ROM due to pain. Lumbar flexion, extension and bending forward reproduces mild to moderate pain. Painful facet loading bilaterally. Moderate TTP to right T10-T11 dermatomal distribution, wrapping medially to right midclavicular line. Back: no CVA tenderness and No back tenderness Cervical Spine: cervical ROM normal and No Cervical spine tenderness Thoracic/Lumbar Spine: thoracic and lumbar spine normal to inspection, Thoracic/lumbar spine scar(s), Lasegue's sign negative, straight leg raise negative bilaterally, No paraspinal muscle tenderness, thoraco-lumbar ROM limited, No thoracic spinal tenderness and No lumbar spinal tenderness Results Reviewed Results Reviewed: XR THORACIC SPINE 12/20/23 CLINICAL INFORMATION: Shingles. Pain. FINDINGS: No fracture or bone destruction is seen. The vertebral alignment appears unremarkable. No disc space narrowing is appreciated. No abnormality of the paraspinal soft tissues is seen. Calcification of the aorta and coronary arteries. Status post coronary arterial stent placement. Tip of a metallic lead projects just to the left of midline at T9. IMPRESSION: No acute finding. XR LUMBOSACRAL SPINE WITH OBLIQUES 12/20/23 CLINICAL INFORMATION: Shingles. Pain. FINDINGS: Moderate multilevel disc space narrowing. Facet degenerative change at L2-S1. Mild lumbar dextrocurvature. The vertebral bodies and posterior elements appear unremarkable. Vertebral body heights appear preserved. No evidence of spondylolisthesis. The paraspinal soft tissues appear unremarkable. Heavy vascular calcification IMPRESSION: Degenerative change. Assessment & Plan Assessment & Plan (1) Post herpetic neuralgia: Code(s): B02.29 - Other postherpetic nervous system involvement Category: Medical (2) Chronic pain syndrome: Code(s): G89.4 - Chronic pain syndrome Category: Medical Plan Patient opted out today to continue ongoing application of topical capsaicin 8% for PHN. He is intersted to trial therapeutic GRACY injection and continue with Lyrica. He also reports good relief with [employer] PNS device. Schedule right T10-T11 parasagittal GRACY with local and fluoroscopy. If no relief, will trial Intercostal nerve blocks. Expectations, risks and benefits were reviewed. Patient is aware he will be contacted to schedule this procedure. Patient takes Eliquis, instructions given on when to pause with prescribing physician permission. All questions were answered and the patient is in agreement of plan. Follow-up after injections and sooner as needed. Medications: Refilled pregabalin 100 mg PO TID 30 days 90 caps 1RF pain B02.29 - Other postherpetic nervous system involvement, G89.29 - Other chronic pain, M54.50 - Low back pain, unspecified Coding Level of Care Code Est Pt Level 4 (79156) Complex EM visit Add On G2211 Diagnoses Post herpetic neuralgia B02.29 Chronic pain syndrome G89.4
[2024-06-25 09:49] VITALS: BP 116/58; PULSE 59; BMI 28.2
--- OUTSIDE RECORDS SUMMARY | 2024-06-25 14:08 | XMS_ITS ---
Author Organization [facility] Address [address] [place] [address] Care Team Providers Care Sandblaster Paint Sprayer Name Role Phone Elida Siddiqui Primary Care Provider UnavailBrody Rosales Unavailable [phone] Clau Morel Unavailable [phone] Allergies Allergen (clinical drug ingredient) Drug/Non Drug [...] 024 Encounters Encounter Location Date Provider Diagnosis [facility] [place] [address] [place] [address] 02/22/2024 Clau Morel Other hammer toe(s) (acquired), [...] Reason: Provider Name:Clau isaac, 02/22/2025 10:00:00 AM, [address] [place] [address], [phone], Progress Notes * Deondre TRUJILLO ADOB:1945 (78 yo M)Acc No.[id number]:02/22/2024 Progress Note Patient:?Deondre Trujillo Provider:?Clau Morel DPM :1945???Age:78 Y???Sex:Male Jose e:02/22/2024 Address:[facility] [address] Pcp:Elida Siddiqui Subjective: * Chief Complaints: * [...] Morel, DPM Date:? Generated for Carmine jack/Alessandra/Yue on:?06/25/2024 02:08 PM EST History and Physical Notes * [...]
--- OUTSIDE RECORDS SUMMARY | 2024-06-25 14:09 | XMS_ITS ---
Author Organization [facility] Address [address] [place] [address] Care Team Providers Care Metal Pattern Maker Name Role Phone Elida Siddiqui Primary Care Provider Brody Carmona Unavailable [phone] Clau Morel [phone] Encounters Encounter Location Date Provider Diagnosis [address] [address] 02/22/2024 Clau Morel Plan Of Treatment Next Appt Details Provider Name:Clau isaac, 02/22/2025 10:00:00 AM, [address] [place] [address], [phone], Progress Notes * Deondre TRUJILLO ADOB:1945 (78 yo M)Acc No.[id number]:02/22/2024 Progress Note Patient:?LORIEYesenia Deondre Brittney Provider:?Clau Morel DPM :1945???Age:78 Y???Sex:Male Jose e:02/22/2024 Address:[address] [place] Pcp:Elida Siddiqui Subjective: * Chief Complaints: * ??? * Medical History:? Objective: * Vitals:? Assessment: Plan: * Treatment: * Images: * The named appointment provid er may or may not be the originator of this progress note, and it is not deemed complete until electronically signed by the appointment provider. Sign off status: Pending * Provider:?Clau Morel DPM Date:? Generated for Carmine jack/Alessandra/Yue on:?06/25/2024 02:08 PM EST
--- OUTSIDE RECORDS SUMMARY | 2024-06-25 14:09 | XMS_ITS ---
Author Organization [facility] Address [address] [place] [address] Care Team Providers Care College Associate Name Role Phone Elida Siddiqui Primary Care Provider UnavailBrody Rosales Unavailable [phone] Clau Morel Unavailable [phone] Allergies Allergen (clinical drug ingredient) Drug/Non Drug [...] 02/16/2023 Encounters Encounter Location Date Provider Diagnosis [facility] [place] [address] [place] [address] 02/16/2023 Clau Morel Other hammer toe(s) (acquired), [...] Reason: Provider Name:Clau isaac, 02/22/2025 10:00:00 AM, [address] [place] [address], [phone], Progress Notes * Deondre TRUJILLO ADOB:1945 (77 yo M)Acc No.[id number]:02/16/2023 Progress Note Patient:?Deondre Trujillo Provider:?Clau Morel DPM :1945???Age:77 Y???Sex:Male Jose e:02/16/2023 Address:[address] [place], [place] [id number] Pcp:Elida Siddiqui Subjective: * Chief Complaints: * [...] * Provider:Panda Morel, DPNickolas Date:? Generated for Carmine jack/Alessandra/Yue on:?06/25/2024 02:09 PM EST History and Physical Notes * [...]
--- OUTSIDE RECORDS SUMMARY | 2024-06-25 14:09 | XMS_ITS | Patient Health Record ---
Author Organization [facility] Address [address] [place] [address] Care Team Providers Care Circular Knife Machine Cutter Name Role Phone Elida Siddiqui Primary Care Provider UnavailBrody Rosales Unavailable [phone] Clau Morel Unavailable [phone] Allergies Allergen (clinical drug ingredient) Drug/Non Drug [...] Problem Acquired hammer toe of right foot (11079520157794 05) Other hammer toe(s) (acquired), right foot (M20.41) Active confirmed Problem Type 2 diabetes mellitus with peripheral angiopathy (820467514) Type 2 diabetes mellitus with diabetic peripheral angiopathy without gangrene (E11.51) Active confirmed Problem Acquired hammer toe of left foot (06421968043041 03) Other hammer toe(s) (acquired), left foot (M20.42) Active confirmed Vital Signs Blood pressure diastolic 70 mm Hg 02/22/2024 Height 5 ft 6 in in 02/22/2024 Blood pressure systolic 120 mm Hg 02/22/2024 Weight 185 lbs 02/22/2024 BMI 29.86 kg/m2 02/22/2024 Encounters Encounter Location Date Provider Diagnosis [facility] [address] [address] 02/22/2024 Clau Maria Teresa Other hammer toe(s) [...] Treatment Pending Test Test Name Order Date [id number] NAIL, 6 OR MORE 06/19/2021 [id number] SKIN LESIONS, OVER 4 06/19/19 22 Next Appt Details Provider Name:Clau Brittney isaac, 02/22/2025 10:00:00 AM, [address] [place], [address], Insurance Providers Payer Name Payer Address Payer Phone Subscriber Number Group Number Insured Name Patient Relationship to Insured Coverage Start Date Coverage End Date [facility] [employer] Claims [address] [place] [id number] Deondre Stein Self - patient is the [...]
== END 2024-06-25 10:06 | disposition home or self-care (01) ==
PROVIDERS: PCP Internal Medicine; Visit Provider Nurse Practitioner Family
DX: B02.29 Other postherpetic nervous system involvement (principal); G89.4 Chronic pain syndrome
CPT/HCPCS: 99214; G2211

== ENCOUNTER → 2024-06-25 09:44 | Outpatient (BNVA) | payer MEDICARE, OTHER, SELFPAY | PROVIDERS: PCP Internal Medicine; Visit Provider Nurse Practitioner Family | DX: G89.4 Chronic pain syndrome (principal); B02.29 Other postherpetic nervous system involvement; M54.50 Low back pain, unspecified | CPT/HCPCS: 99212 ==

== ENCOUNTER 2024-07-16 10:00 | Outpatient (REF) | payer MEDICARE, SELFPAY ==
[2024-07-16 10:13] LABS: MANUAL DIFF FLAG NO
[2024-07-16 10:38] LABS: Basophils Absolute Auto 0.1 X10*3/uL (0.0-0.2); Basophils Percent Auto 0.9 % (0-2); Eosinophils Absolute Auto 0.3 X10*3/uL (0.0-0.4); Eosinophils Percent Auto 5.4 % (0-4); Hematocrit 42.3 % (42.0-52.0); Hemoglobin 13.3 g/dl (14.0-18.0); Imm Gran Abs Auto 0.02 X10*3/uL (0.00-0.03); Imm Gran Pct Auto 0.3 % (0.0-0.4); Lymphocytes Absolute Auto 0.6 X10*3/uL (1.2-4.9); Lymphocytes Percent Auto 9.9 % (20-40); Mean Corpuscular HGB Conc 31.4 g/dl (31.0-36.0); Mean Corpuscular Hemoglobin 29.6 pg (27.0-33.0); Mean Corpuscular Volume 94.2 fL (80.0-98.0); Monocytes Absolute Auto 0.5 X10*3/uL (0.1-1.2); Monocytes Percent Auto 8.8 % (2-11); Neutrophils Absolute Auto 4.4 x10*3/uL (2.0-8.3); Neutrophils Percent Auto 74.7 % (45-73); Platelet Count 198 X10*3/uL (160-400); Red Blood Count 4.49 X10*6/uL (4.60-5.80); Red Cell Distribution Width 14.7 % (11.0-16.0); White Blood Count 5.9 X10*3/uL (4.8-10.8)
[2024-07-16 11:05] LABS: Alanine Aminotransferase 32 U/L (0-40); Albumin Level 3.9 g/dL (3.5-5.0); Alkaline Phosphatase 68 U/L (39-117); Anion Gap 9 (12-20); Aspartate Amino Transferase 60 U/L (5-37); Bilirubin Total 0.4 mg/dL (0.0-1.0); Blood Urea Nitrogen 29 mg/dL (9-16); Calcium 9.1 mg/dL (8.4-10.2); Carbon Dioxide 27 mmol/L (22-29); Chloride 110 mmol/L (96-108); Estimated Glomerular Filt Rate 44; Glucose Random 183 mg/dL (60-115); Potassium 4.4 mmol/L (3.3-5.1); Sodium 142 mmol/L (135-145); Total Protein 6.8 g/dL (6.5-8.0)
[2024-07-16 11:16] LABS: Estimated Average Glucose 189 mg/dL; Hemoglobin A1C 229.0006 umol/L; Hemoglobin A1c % 8.2 % (<6.0)
== END 2024-07-16 10:01 | disposition home or self-care (01) ==
LOC: HO.LAB 10:00
PROVIDERS: PCP Internal Medicine; Visit Provider Internal Medicine
DX: N18.30 Chronic kidney disease, stage 3 unspecified (principal); E78.00 Pure hypercholesterolemia, unspecified; Z13.1 Encounter for screening for diabetes mellitus
CPT/HCPCS: 36415; 80053; 83036; 85025

== ENCOUNTER 2024-07-20 09:55 | Outpatient (AMB) | payer MEDICARE, SELFPAY ==
[2024-07-20 09:59] VITALS: BP 104/58; PULSE 54; O2SAT 97; BMI 27.9
--- NOTE | 2024-07-20 09:59 | A.OFFPC_ITS ---
Vital Signs 07/20/24 09:59 Height 5 ft 6 in Weight 173 lb BMI 27.9 BP 104/58 L Blood Pressure Location Lt brachial Position Sitting Pulse 54 Pulse Source Pulse Oximeter Pulse Oximetry (%) 97 Oxygen Delivery Method Room Air Intake Visit Reasons: DM Allergies lisinopril Allergy (Unknown, Verified 07/20/24 10:00) Unknown Penicillins [PENICILLINS] Allergy (Unknown, Verified 07/20/24 10:00) UNKNOWN REACTION-CHILDHOOD ALLERGY Tobacco use date assessed: 07/20/24 Fall risk assessment: No Falls in past year Last assessed Fall Risk: 07/20/24 Dental Screening Dental Screen Date: 07/20/24 Did you have a dental visit in the last 12 months?: Yes Did you have a dental problem in the last 6 months where you did not have access to dental care?: No Was dental information given to patient?: Patient has dentist HPI DM HPI Details The patient is a 78-year-old male presenting with follow-up appointments for multiple chronic conditions. He has a history of coronary artery disease, hypertension, hypercholesterolemia, diabetes mellitus, chronic obstructive pulmonary disease, peripheral vascular disease, atrial fibrillation, obstructive sleep apnea, carotid artery disease, congestive heart failure, and Stage 3 chronic kidney disease. The patient also reports chronic low back pain associated with postherpetic neuralgia. He has been under pain management and shows interest in epidural injections while currently using Lyrica. The patient has been following up with nephrology for chronic kidney disease, with a recent creatinine level of 1.53, which has improved from previous levels. He has seen improvement in his renal function and is advised to avoid NSAIDs. Similarly, for his COPD, he continues using CPAP nightly and requires no inhalers at this stage. Despite mild anemia being chronic and stable for three years, he has presented with liver enzyme elevations, likely linked to alcohol consumption. Liver function tests revealed an elevation with a total cholesterol and LDL level within acceptable limits. For diabetes mellitus, his hemoglobin A1c levels have increased from 7.8 to 8.2, which he relates to dietary choices, particularly the consumption of prepared foods. [facility] Medical History (Updated 07/20/24 @ 10:35 by Elida Siddiqui MD) Dyspnea on exertion Atrial fibrillation Acute heart failure Atrial fibrillation with RVR Cardiomyopathy Cataracts, bilateral Chronic otitis media Peripheral vascular disease Type 2 diabetes mellitus with hyperglycemia Erectile dysfunction Post herpetic neuralgia COPD (chronic obstructive pulmonary disease) Obstructive sleep apnea Rotator cuff tear, left Carotid stenosis Tubular adenoma of colon Hypertension Hypercholesterolemia PVCs (premature ventricular contractions) NICM (nonischemic cardiomyopathy) CAD (coronary artery disease) Surgical History History of cardiac radiofrequency ablation History of colonoscopy History of cataract surgery History of repair of rotator cuff History of cardiac catheterization History of tonsillectomy History of carotid endarterectomy Family History Father H/O ETOH abuse Hypertension Mother Hypertension Brother Diabetes Brother No problems noted. Sister No problems noted. Sister No problems noted. Social History Household Members: None Housing: House Do you presently have visiting nurse or other home services: No Alcohol intake: current Alcohol intake frequency: holidays/special occasions only Alcohol type: beer Comment: no instruments used Patient Tobacco Use Status: Never used Tobacco Tobacco use type: Cigarette e-Cigarette/Vaping Use: Never Used Second Hand Smoke Exposure: No Advance Directives Date on File: 11/17/21 service: No Current occupational status: employed Cognitive needs: No Hearing needs: Yes Vision needs: Yes Questionnaire PHQ-9 Over the last 2 weeks, how often have you been bothered by any of the following problems? 1. Little interest or pleasure in doing things: not at all 2. Feeling down, depressed, or hopeless: not at all 3. Trouble falling or staying asleep, or sleeping too much: not at all 4. Feeling tired or having little energy: several days 5. Poor appetite or overeating: not at all 6. Feeling bad about yourself - or that you are a failure or have let yourself or your family down: not at all 7. Trouble concentrating on things, such as reading the newspaper or watching television: not at all 8. Moving or speaking so slowly that other people could have noticed. Or the opposite - being so fidgety or restless that you have been moving around a lot more than usual: not at all 9. Thoughts that you would be better off or of hurting yourself in some way: not at all Total score: 1 Depression Screening Interpretation: Negative Depression Screening Done: Yes 88227 - PHQ-9 Billing: Yes Source: Developed by Drs. Marcos Phan, Holley Encinas, Tk Car and colleagues, with an educational deonte from [email or web address]. Thrive Questionnaire Date Thrive assessed: 07/20/24 I am a: Patient What is your living situation today?: I have a steady place to live Within the past 12 months, did the food you bought not last and you didn't have the money to get more?: Never true Within the past 12 months, did you worry whether your food would run out before you got money to buy more?: Never true Do you have trouble paying for medicines?: No Do you have trouble getting transportation to medical appointments?: No Do you have trouble paying your heating and electricity bill?: No Do you have trouble taking care of your child, family member or friend?: No Do you have trouble with day-to-day activities such as bathing, preparing meals, shopping, managing finances, etc.?: No Are you currently unemployed and looking for a job?: No Are you interested in more education?: No Currently or been in a relationship where the following occur: No concerns reported THRIVE Score: 0 AUDIT C Alcohol Use Questionnaire (AUDIT-C) 1. How often do you have a drink containing alcohol?: 2-3 times a week 2. How many drinks containing alcohol do you have on a typical day when you are drinking?: 1 or 2 3. How often do you have six or more drinks on one occasion?: Never Total Score: 3 RENETTA-7 AMB Questionnaire RENETTA-7 Date RENETTA - 7 assessed: 07/20/24 Feeling nervous, anxious, or on edge: 0 = Not at all Not being able to stop or control worryin = Not at all Worrying too much about different things: 0 = Not at all Trouble relaxin = Not at all Being so restless that it is hard to sit still: 0 = Not at all Becoming easily annoyed or irritable: 0 = Not at all Feeling afraid as if something awful might happen: 0 = Not at all Total RENETTA-7 score (0-4 normal; 5-9 mild; 10-14 moderate; 15-21 severe): 0 Source: Developed by Ahsan Burtonet B.W. Huang, Tk Car and colleagues, with an educational deonte from [email or web address]. Physical exam (Primary Care) Vital Signs: Last Vital Signs Pulse 54 07/20/24 09:59 BP 104/58 L 07/20/24 09:59 Pulse Ox 97 07/20/24 09:59 Oxygen Delivery Method Room Air 07/20/24 09:59 BMI result Body Mass Index 27.9 Tobacco/Smoking Status: Tobacco use Status Tobacco use date assessed 07/20/24 07/20/24 10:01 Patient Tobacco Use Status Never used Tobacco 07/20/24 10:01 Tobacco use type Cigarette 07/20/24 10:01 e-Cigarette/Vaping Use Never Used 07/20/24 10:01 PHQ-9: PHQ-9 Score PHQ-9: Total score 1 07/20/24 10:19 Depression Screening Interpretation: Negative Thrive Assessment: Date of Thrive Assessment Date Thrive assessed 07/20/24 07/20/24 10:01 Currently or been in a relationship where the following occur: No concerns reported Const General: alert; No acute distress Eyes Conjunctivae: conjunctivae normal Resp Auscultation: clear to auscultation bilaterally Cardio Rate: regular rate Rhythm: regular rhythm GI Inspection: Yes normal to inspection Extrem General: Yes normal to inspection and No edema Coding Level of Care Code Est Pt Level 4 (41977) Complex EM visit Add On G2211 Diagnoses Type 2 diabetes mellitus with hyperglycemia, without long-term current use of insulin E11.65 Diabetes mellitus assisted insulin use: without assisted use Essential hypertension I10 Hypertension type: essential hypertension Hypercholesterolemia E78.00 Coronary artery disease involving [place] coronary artery of [place] heart without angina pectoris I25.10 Associated angina: without angina Coronary Disease-Associated Artery/Lesion type: [place] artery [place] vs. transplanted heart: [place] heart JITENDRA on CPAP G47.33; Z99.89 PAF (paroxysmal atrial fibrillation) I48.0 Stage 3b chronic kidney disease N18.32 Chronic kidney disease stage 3 subtype: stage 3b (GFR 30-44) Post herpetic neuralgia B02.29 [place]ushing R23.2 Peyronie disease N48.6 Foreign body of finger S60.459A Additional Codes PHQ-9 - 80658 - PHQ-9 Billing: Yes ([id number]) Assessment & Plan Assessment & Plan (1) Type 2 diabetes mellitus with hyperglycemia: Comment: Dr. Hawthorne Code(s): E11.65 - Type 2 diabetes mellitus with hyperglycemia Category: Medical Qualifiers: Diabetes mellitus long term care phlebotomist insulin use: without long term care phlebotomist use Qualified Code(s): E11.65 - Type 2 diabetes mellitus with hyperglycemia Plan: Decrease the amount of carbohydrate intake, pasta, bread, rice and potatoes are all sugar and that is aside from all the sweet stuff, remember that fruits are good but they are Sweet also. Hemoglobin A1c goal of less than 7.0 on Jardiance Tradjenta hemoglobin A1c still elevated (2) Hypertension: Code(s): I10 - Essential (primary) hypertension Category: Medical Qualifiers: Hypertension type: essential hypertension Qualified Code(s): I10 - Essential (primary) hypertension Plan: Continue with blood pressure medication. Decrease salt intake and exercise patient's blood pressure medications has been hold off held off because of hypotension (3) Hypercholesterolemia: Code(s): E78.00 - Pure hypercholesterolemia, unspecified Category: Medical Plan: Avoid fried foods, chicken skin, eggs, butter margarine, pastries and meat. Be it pork or beef they have a lot of cholesterol LDL goal of less than 70 and triglyceride of less than 150 patient takes fenofibrate Zetia and atorvastatin (4) CAD (coronary artery disease): Code(s): I25.10 - Atherosclerotic heart disease of [place] coronary artery without angina pectoris Category: Medical Qualifiers: Associated angina: without angina Coronary Disease-Associated Artery/Lesion type: [place] artery [place] vs. transplanted heart: [place] heart Qualified Code(s): I25.10 - Atherosclerotic heart disease of [place] coronary artery without angina pectoris Plan: Control the cholesterol, weight, blood pressure, diabetes presently on anticoagulation with apixaban last kidney number test was this June (5) JITENDRA on CPAP: Comment: Known case of obstructive sleep apnea since 2017. Has been using CPAP very regularly all this time. REMAINS VERY COMPLIANT, OLD CPAP DEVICE WAS NOT CAPABLE OF TRANSMITTING THE COMPLIANCE DATA. HE HAS THE NEW CPAP MACHINE AND ADVISED TO START USING IT REGULARLY, WE WERE NOT ABLE TO DOWNLOAD THE COMPLIANCE DATA. BUT ACCORDING TO HIM HE USES EVERY NIGHT FOR AT LEAST 6 HOURS PER NIGHT. Code(s): G47.33 - Obstructive sleep apnea (adult) (pediatric); Z99.89 - Dependence on other enabling machines and devices Category: Medical Plan: Continue to use the CPAP more than 4 hours a night and benefits from this. Patient follows up with Pulmonary (6) PAF (paroxysmal atrial fibrillation): Comment: Status post cardioversion Code(s): I48.0 - Paroxysmal atrial fibrillation Category: Medical Plan: Presently on amiodarone and anticoagulation continue to monitor renal function (7) CKD (chronic kidney disease) stage 3, GFR 30-59 ml/min: Code(s): N18.30 - Chronic kidney disease, stage 3 unspecified Category: Medical Qualifiers: Chronic kidney disease stage 3 subtype: stage 3b (GFR 30-44) Qualified Code(s): N18.32 - Chronic kidney disease, stage 3b Plan: Avoid NSAIDs, continue to be monitored. Diuretics has been held off and the renal function is getting better (8) Post herpetic neuralgia: Code(s): B02.29 - Other postherpetic nervous system involvement Category: Medical Plan: Patient follows up with pain management and planned epidural injection. (9) Flushing: Code(s): R23.2 - [place] Category: Medical (10) Peyronie disease: Code(s): N48.6 - Induration penis plastica Category: Medical (11) Foreign body of finger: Comment: Left 3rd finger tip 04/2024 Code(s): S60.459A - Superficial foreign body of unspecified finger, initial encounter Category: Medical Plan 1. 0: - For hypertension: Blood pressure management to be reviewed due to concerns of hypotension. - Continue hypercholesterolemia management with fenofibrate and atorvastatin; maintain LDL goal < 70 mg/dL, triglycerides < 150 mg/dL. - Chronic kidney disease: Maintain current regimen, avoid NSAIDs, and continue to monitor renal function. - Chronic low back pain: Coordinating care with pain management for epidural injection. - COPD: Continue CPAP use nightly for more than four hours. - Anemia: Continuous monitoring; continue with current management since it is stable. - For liver enzyme elevation suspected due to alcohol use: Recommend limiting alcohol intake given its potential effects on liver and kidney function; monitor liver enzymes regularly. - Order hormone level check due to symptoms suggestive of hormonal fluctuations (possible hot flashes). - Referral to urology for management of Peyronie's disease symptoms. - Order X-ray for persistent sensation related to possible retained foreign body in the third finger. - Podiatry and shoe support: To be arranged upon confirmation of previous prescriptions and foot assessments. Orders: Orders XR chest 2V Today I48.0 - Paroxysmal atrial fibrillation Vitamin B12 and Folate Today I48.0 - Paroxysmal atrial fibrillation Hemoglobin A1c Today I48.0 - Paroxysmal atrial fibrillation Creatinine Urine Today E11.65 - Type 2 diabetes mellitus with hyperglycemia, I48.0 - Paroxysmal atrial fibrillation XR finger LT min 2V Today S60.459A - Superficial foreign body of unspecified finger, initial encounter Complete Blood Count Auto Diff Today I48.0 - Paroxysmal atrial fibrillation Comprehensive Met. Panel Today I48.0 - Paroxysmal atrial fibrillation Free T4 (Free Thyroxine) Today I48.0 - Paroxysmal atrial fibrillation Lipid Panel Today E78.00 - Pure hypercholesterolemia, unspecified, I48.0 - Paroxysmal atrial fibrillation Thyroid Stimulating Hormone Today I48.0 - Paroxysmal atrial fibrillation Microalbumin, Random (w Creat) Today E11.65 - Type 2 diabetes mellitus with hyperglycemia, I48.0 - Paroxysmal atrial fibrillation Testosterone, Total Today R23.2 - [place]ushing Referrals Urology Referral N48.6 - Induration penis plastica Medications: Changed From empagliflozin 10 mg PO DAILY 90 tabs 1RF E11.65 - Type 2 diabetes mellitus with hyperglycemia To empagliflozin 25 mg PO DAILY 30 tabs 3RF E11.65 - Type 2 diabetes mellitus with hyperglycemia
--- OUTSIDE RECORDS SUMMARY | 2024-07-20 10:36 | XMS_ITS ---
Author Organization [facility] Address [address] [place] [address] Care Team Providers Care Despatching And Receiving Clerk Name Role Phone Elida Siddiqui Primary Care Provider UnavailBrody Rosales Unavailable [phone] Clau Morel Unavailable [phone] Allergies Allergen (clinical drug ingredient) Drug/Non Drug [...] an other tobacco user? No Vital Signs Blood pressure systolic 120 mm Hg 02/22/20 24 Blood pressure diastolic 70 mm Hg 024 Height 5 ft 6 in in 02/22/2024 Weight 185 lbs 02/22/2024 BMI 29.86 kg/m2 02/22/2024 Encounters Encounter Location Date Provider Diagnosis [facility] [place] [address] [place] [address] 02/22/2024 Clau Morel Other hammer toe(s) (acquired), [...] Reason: Provider Name:Clau isaac, 02/22/2025 10:00:00 AM, [address] [place] [address], [phone], Progress Notes * Deondre TRUJILLO ADOB:1945 (78 yo M)Acc No.[id number]:02/22/2024 Progress Note Patient:?Deondre Trujillo Provider:?Clau Morel DPM :1945???Age:78 Y???Sex:Male Jose e:02/22/2024 Address[address] [address] [id number] Pcp:Elida Siddiqui Subjective: * Chief Complaints: * [...] Morel, DPM Date:? Generated for Carmine jack/Alessandra/Yue on:?07/20/2024 10:35 AM EST History and Physical Notes * [...]
--- OUTSIDE RECORDS SUMMARY | 2024-07-20 10:36 | XMS_ITS | Patient Health Record ---
Author Organization [facility] Address [address] [facility] [place] [address] Care Team Providers Care Ceo Na Name Role Phone Elida Siddiqui Primary Care Provider UnavailBrody Rosales Unavailable [phone] Clau Morel Unavailable [phone] Allergies Allergen (clinical drug ingredient) Drug/Non Drug [...] Problem Acquired hammer toe of right foot ([id number] 05) Other hammer toe(s) (acquired), right foot (M20.41) Active confirmed Problem Type 2 diabetes mellitus with peripheral angiopathy (680461733) Type 2 diabetes mellitus with diabetic peripheral angiopathy without gangrene (E11.51) Active confirmed Problem Acquired hammer toe of left foot (89061026864095 03) Other hammer toe(s) (acquired), left foot (M20.42) Active confirmed Vital Signs Blood pressure diastolic 70 mm Hg 02/22/2024 Height 5 ft 6 in in 02/22/2024 Blood pressure systolic 120 mm Hg 02/22/2024 Weight 185 lbs 02/22/2024 BMI 29.86 kg/m2 02/22/2024 Encounters Encounter Location Date Provider Diagnosis [facility] [address] [address] 02/22/2024 Clau Maria Teresa Other hammer toe(s) [...] Treatment Pending Test Test Name Order Date [id number] NAIL, 6 OR MORE 06/19/2021 [id number] SKIN LESIONS, OVER 4 06/19/19 22 Next Appt Details Provider Name:Clau Brittney isaac, 02/22/2025 10:00:00 AM, [address] [place], [address], Insurance Providers Payer Name Payer Address Payer Phone Subscriber Number Group Number Insured Name Patient Relationship to Insured Coverage Start Date Coverage End Date [facility] [employer] Claims [address] [place] [id number] Deondre Stein Self - patient is the [...]
--- OUTSIDE RECORDS SUMMARY | 2024-07-20 10:36 | XMS_ITS ---
Author Organization [facility] Address [address] [place] [address] Care Team Providers Care Radio Personality Name Role Phone Elida Siddiqui Primary Care Provider UnavailBrody Rosales Unavailable [phone] Clau Morel Unavailable [phone] Allergies Allergen (clinical drug ingredient) Drug/Non Drug [...] 02/16/2023 Encounters Encounter Location Date Provider Diagnosis [facility] [place] [address] [place] [address] 02/16/2023 Clau Morel Other hammer toe(s) (acquired), [...] Reason: Provider Name:Clau isaac, 02/22/2025 10:00:00 AM, [address] [place] [address], [phone], Progress Notes * Deondre TRUJILLO ADOB:1945 (77 yo M)Acc No.[id number]:02/16/2023 Progress Note Patient:?Deondre Trujillo Provider:?Clau Morel DPM :1945???Age:77 Y???Sex:Male Jose e:02/16/2023 Address:[address] [place], [place] [id number] Pcp:Elida Siddiqui Subjective: * Chief Complaints: * [...] Provider:Panda Morel, DPNickolas Date:? Generated for Carmine jack/Alessandra/eTjose a on:?07/20/2024 10:36 AM EST History and Physical Notes * [...]
--- OUTSIDE RECORDS SUMMARY | 2024-07-20 10:36 | XMS_ITS ---
Author Organization [facility] Address [address] [place] [address] Care Team Providers Care Group Fitness Manager Name Role Phone Elida Siddiqui Primary Care Provider Brody Carmona Unavailable [phone] Clau Morel [phone] Encounters Encounter Location Date Provider Diagnosis [address] [address] 02/22/2024 Clau Morel Plan Of Treatment Next Appt Details Provider Name:Clau isaac, 02/22/2025 10:00:00 AM, [address] [place] [address], [phone], Progress Notes * Deondre TRUJILLO ADOB:1945 (78 yo M)Acc No.[id number]:02/22/2024 Progress Note Patient:?LORIEYesenia Deondre Brittney Provider:?Clau Morel DPM :1945???Age:78 Y???Sex:Male Jose e:02/22/2024 Address[address] [place] Pcp:Elida Siddiqui Subjective: * Chief Complaints: * ??? * Medical History:? Objective: * Vitals:? Assessment: Plan: * Treatment: * Images: * The named appointment provid er may or may not be the originator of this progress note, and it is not deemed complete until electronically signed by the appointment provider. Sign off status: Pending * Provider:?Clau Morel DPM Date:? Generated for Carmine jack/Alessandra/Yue on:?07/20/2024 10:36 AM EST
== END 2024-07-20 10:43 | disposition home or self-care (01) ==
PROVIDERS: PCP Internal Medicine; Visit Provider Internal Medicine
DX: E11.65 Type 2 diabetes mellitus with hyperglycemia (principal); I10 Essential (primary) hypertension; E78.00 Pure hypercholesterolemia, unspecified; I25.10 Atherosclerotic heart disease of native coronary artery without angina pectoris; G47.33 Obstructive sleep apnea (adult) (pediatric); Z99.89 Dependence on other enabling machines and devices; I48.0 Paroxysmal atrial fibrillation; N18.32 Chronic kidney disease, stage 3b; B02.29 Other postherpetic nervous system involvement; R23.2 Flushing; N48.6 Induration penis plastica; S60.459A Superficial foreign body of unspecified finger, initial encounter

== ENCOUNTER → 2024-07-20 09:55 | Outpatient (BNVA) | payer MEDICARE, SELFPAY | PROVIDERS: PCP Internal Medicine; Visit Provider Internal Medicine | DX: E11.65 Type 2 diabetes mellitus with hyperglycemia (principal); I10 Essential (primary) hypertension; E78.00 Pure hypercholesterolemia, unspecified; I25.10 Atherosclerotic heart disease of native coronary artery without angina pectoris; G47.33 Obstructive sleep apnea (adult) (pediatric); Z99.89 Dependence on other enabling machines and devices; I48.0 Paroxysmal atrial fibrillation; N18.32 Chronic kidney disease, stage 3b; B02.29 Other postherpetic nervous system involvement; R23.2 Flushing; N48.6 Induration penis plastica | CPT/HCPCS: 96127; 99212 ==

== ENCOUNTER 2024-08-02 06:01 | Outpatient (REF) | payer MEDICARE, SELFPAY ==
--- NOTE | ~2024-08-02 | FL_ITS ---
EXAMINATION: XR FLUOROSCOPY WITH IMAGES CLINICAL INFORMATION: Pain management procedure lower thoracic spine. COMPARISON: 05/04/2019. TECHNIQUE: Fluoroscopy provided to: Dr. Ivy Fluoroscopy time: 0.5 minutes DAP: 0.0349 mGycm2 Images: 6 FINDINGS: 6 spot images obtained during left lower thoracic pain management injection. Please refer to the full operative report for details. FL/FL guidance in treatment room IMPRESSION: Fluoroscopic guidance. Electronically signed by: Rj De La Cruz MD 08/06/2024 10:10 AM EDT
--- OUTSIDE RECORDS SUMMARY | 2024-08-02 06:06 | XMS_ITS ---
[facility] Address [address] [place] [address] Care Team Providers Care Compositor Apprentice Name Role Phone Elida Siddiqui Primary Care Provider UnavailBrody Rosales Unavailable [phone] Clau Morel Unavailable [phone] Allergies Allergen (clinical drug ingredient) Drug/Non Drug [...] 024 Encounters Encounter Location Date Provider Diagnosis [facility] [place] [address] [place] [address] 02/22/2024 Clau Morel Other hammer toe(s) (acquired), [...] Reason: Provider Name:Clau isaac, 02/22/2025 10:00:00 AM, [address] [place] [address], [phone], Progress Notes * Deondre TRUJILLO ADOB:1945 (78 yo M)Acc No.[id number]:02/22/2024 Progress Note Patient:?Deondre Trujillo Provider:?Clau Morel DPM :1945???Age:78 Y???Sex:Male Jose e:02/22/2024 Address:[facility] [address] [place] Pcp:Elida Siddiqui Subjective: * Chief Complaints: * [...] reviewed and reconciled with the patient * Allergies:?PenicillinLeticia alcaraz[Allergies Verified] Objective: * Vitals:?Ht: 5 ft 6 in, Wt: 1 85, BMI: 29.86, Shoe size: 9.5, BP: 120/70 mm Hg, BS: no taken, Wt-k.91 kg. * ???Past Orders: ???Lab:HEMOGLOBIN A1C (GLYCO HEMOGLOBIN) (Order Date - 11/28/2023) (Collection Date - 11/28/2023) ? Value Reference Range ?TOTAL HEMOGLOBIN (HGBA1C) 7.0 * Examination: ???Ophthalmology Referral: ?DIABETES EYE EXAM?Diabetic Retinopathy Screening:?Yes 2023 ?Findings of Diabetic Eye Exam:?no retinopathy?Orthopedic: ?MUSCLE STRENGTH:?5/5 all groups in a symmetrical [...] foot/toe deformity , worn, nonsupportive.?General Examination: ?FOOT EXAM:?Lower Extremity Neurological Exam performed:?Yes ?Footwear Evaluation?Footwear Evaluation performed:?Yes?Dermatologic: ?SKIN FINDINGS:?Skin exam reveals normal color, texture, [...] Sign off status: Completed true * Provider:?Clau Morel DPM Date:? Generated for Carmine jack/Alessandra/Yue on:?08/02/2024 06:05 AM EST History and Physical Notes * [...]
--- OUTSIDE RECORDS SUMMARY | 2024-08-02 06:06 | XMS_ITS ---
Author Organization [facility] Address [address] [place] [address] Care Team Providers Care Milling Machine Set Up Operator Name Role Phone Elida Siddiqui Primary Care Provider Brody Carmona Unavailable [phone] Clau Morel [phone] Encounters Encounter Location Date Provider Diagnosis [address] [address] 02/22/2024 Clau Morel Plan Of Treatment Next Appt Details Provider Name:Clau isaac, 02/22/2025 10:00:00 AM, [address] [place] [address], [phone], Progress Notes * Deondre TRUJILLO ADOB:1945 (78 yo M)Acc No.[id number]:02/22/2024 Progress Note Patient:?LORIEYesenia Deondre Brittney Provider:?Clau Morel DPM :1945???Age:78 Y???Sex:Male Jose e:02/22/2024 Address[address] [place] Pcp:Elida Siddiqui Subjective: * Chief Complaints: * [...]
--- OUTSIDE RECORDS SUMMARY | 2024-08-02 06:06 | XMS_ITS | Patient Health Record ---
Author [facility] Address [address] [facility] [place] [address] Care Team Providers Care Gear And Spline Grinder Name Role Phone Elida Siddiqui Primary Care Provider UnavailBrody Rosales Unavailable [phone] Clau Morel Unavailable [phone] Allergies Allergen (clinical drug ingredient) Drug/Non Drug [...] Problem Acquired hammer toe of right foot (51462430637529 05) Other hammer toe(s) (acquired), right foot (M20.41) Active confirmed Problem Type 2 diabetes mellitus with peripheral angiopathy (908651112) Type 2 diabetes mellitus with diabetic peripheral angiopathy without gangrene (E11.51) Active confirmed Problem Acquired hammer toe of left foot (33501687822313 03) Other hammer toe(s) (acquired), left foot (M20.42) Active confirmed Vital Signs Blood pressure diastolic 70 mm Hg 02/22/2024 Height 5 ft 6 in in 02/22/2024 Blood pressure systolic 120 mm Hg 02/22/2024 Weight 185 lbs 02/22/2024 BMI 29.86 kg/m2 02/22/2024 Encounters Encounter Location Date Provider Diagnosis [facility] [address] [address] 02/22/2024 Clau Maria Teresa Other hammer toe(s) [...] Treatment Pending Test Test Name Order Date [id number] NAIL, 6 OR MORE 06/19/2021 [id number] SKIN LESIONS, OVER 4 06/19/19 22 Next Appt Details Provider Name:Clau Brittney isaac, 02/22/2025 10:00:00 AM, [address] [place], [address], Insurance Providers Payer Name Payer Address Payer Phone Subscriber Number Group Number Insured Name Patient Relationship to Insured Coverage Start Date Coverage End Date [facility] [employer] Claims [address] [place] [address] [id number] Deondre Stein Self - patient is the [...]
--- OUTSIDE RECORDS SUMMARY | 2024-08-02 06:06 | XMS_ITS ---
Author Organization [facility] Address [address] [place] [address] Care Team Providers Care Director Of Partnerships Name Role Phone Elida Siddiqui Primary Care Provider UnavailBrody Rosales Unavailable [phone] Clau Morel Unavailable [phone] Allergies Allergen (clinical drug ingredient) Drug/Non Drug [...] 02/16/2023 Encounters Encounter Location Date Provider Diagnosis [facility] [place] [address] [place] [address] 02/16/2023 Clau Morel Other hammer toe(s) (acquired), [...] Reason: Provider Name:Clau isaac, 02/22/2025 10:00:00 AM, [address] [place] [address], [phone], Progress Notes * Deondre TRUJILLO ADOB:1945 (77 yo M)Acc No.[id number]:02/16/2023 Progress Note Patient:?Deondre Trujillo Provider:?Clau Morel DPM :1945???Age:77 Y???Sex:Male Jose e:02/16/2023 Address:[address] [place], [place] [id number] Pcp:Elida Siddiqui Subjective: * Chief Complaints: * [...] 5.9 * Examination: ???Ophthalmology Referral: ?DIABETES EYE EXAM?Diabetic Retinopathy Screening:?No ?Findings of Diabetic Eye Exam:?retinopathy?Orthopedic: ?MUSCLE STRENGTH:?5/5 all groups in a symmetrical [...] Exam performed:?Yes ?Footwear Evaluation?Footwear Evaluation performed:?Yes?Dermatologic: ?SKIN FINDINGS:? Skin shows sign(s) of, erythema, [...] off status: Completed true * Provider:Panda Morel, FRANCO Date:? Generated for Carmine jack/Alessandra/Germaineitting on:?08/02/2024 06:05 AM EST History and Physical [...]
== END 2024-08-02 06:02 | disposition home or self-care (01) ==
LOC: CF 06:01
PROVIDERS: Visit Provider Internal Medicine
DX: B02.23 Postherpetic polyneuropathy (principal)
CPT/HCPCS: 62321; J2003; J3301; Q9967

== ENCOUNTER 2024-08-02 08:33 | Outpatient (AMB) | payer MEDICARE, SELFPAY ==
[2024-08-02 08:45] VITALS: BP 117/54; PULSE 55; O2SAT 95
--- NOTE | 2024-08-02 08:45 | A.OFFVIS_ITS ---
Vital Signs 08/02/24 08:45 08/02/24 09:48 BP 117/54 L 142/86 H Blood Pressure Location Rt brachial Rt brachial Position Sitting Sitting Pulse 55 63 Pulse Source Pulse Oximeter Pulse Oximeter Pulse Oximetry (%) 95 96 Oxygen Delivery Method Room Air Room Air Comment Pre-Op Post-Op Intake Visit Reasons: Right T10-T11 parasagittal GRACY Allergies lisinopril Allergy (Unknown, Verified 07/20/24 10:00) Unknown Penicillins [PENICILLINS] Allergy (Unknown, Verified 07/20/24 10:00) UNKNOWN REACTION-CHILDHOOD ALLERGY HPI HPI Right T10-T11 parasagittal GRACY: Details: Patient presents for scheduled procedure. Denies any recent cough, cold, infection, fever or other significant changes in medical history since last office visit. [facility] Medical History (Updated 07/20/24 @ 10:35 by Elida Siddiqui MD) Dyspnea on exertion Atrial fibrillation Acute heart failure Atrial fibrillation with RVR Cardiomyopathy Cataracts, bilateral Chronic otitis media Peripheral vascular disease Type 2 diabetes mellitus with hyperglycemia Erectile dysfunction Post herpetic neuralgia COPD (chronic obstructive pulmonary disease) Obstructive sleep apnea Rotator cuff tear, left Carotid stenosis Tubular adenoma of colon Hypertension Hypercholesterolemia PVCs (premature ventricular contractions) NICM (nonischemic cardiomyopathy) CAD (coronary artery disease) Surgical History History of cardiac radiofrequency ablation History of colonoscopy History of cataract surgery History of repair of rotator cuff History of cardiac catheterization History of tonsillectomy History of carotid endarterectomy Family History Father H/O ETOH abuse Hypertension Mother Hypertension Brother Diabetes Brother No problems noted. Sister No problems noted. Sister No problems noted. Social History Household Members: None Housing: House Do you presently have visiting nurse or other home services: No Alcohol intake: current Alcohol intake frequency: holidays/special occasions only Alcohol type: beer Comment: no instruments used Patient Tobacco Use Status: Never used Tobacco Tobacco use type: Cigarette e-Cigarette/Vaping Use: Never Used Second Hand Smoke Exposure: No Advance Directives Date on File: 11/17/21 service: No Current occupational status: employed Cognitive needs: No Hearing needs: Yes Vision needs: Yes Physical Exam Vital Signs: Last Vital Signs Pulse 63 08/02/24 09:48 BP 142/86 H 08/02/24 09:48 Pulse Ox 96 08/02/24 09:48 Oxygen Delivery Method Room Air 08/02/24 09:48 Office Procedures AMB Joint Injection/Aspiration Joint Injection/Aspiration Details: Interlaminar epidural steroid injection, T9/10, Right parasaggital After obtaining written consent, pre-procedure blood pressure and heart rate were stable and recorded in the nursing record. The patient was placed in the prone position. The thoracic area was widely prepped with chloraprep and draped in sterile fashion. Fluoroscopic guidance was used to identify the desired interlaminar space and for needle placement. Due to the presence of a pre-existing peripheral nerve stimulation lead, the right parasagittal T9-10 interspace was chosen for epidural access. Subcutaneous 0.5% lidocaine was used to anesthetize the skin overlying the target. A 20-gauge Eastman needle was advanced to the epidural space using loss of resistance to contrast technique under fluoroscopic AP and contralateral oblique views. There was no evidence of heme or CSF and no paresthesias were elicited with needle placement. Confirmation of epidural needle placement was performed with 3cc of omnipaque 180. Next 3 ml 0.5% lidocaine mixed with 80 mg triamcinilone was administered epidurally with no pain elicited on injection. The needle tract tubing was then cleared with 1 ml of 0.5% lidocaine. The needle was removed, skin cleansed and a sterile bandage was applied. The patient tolerated the procedure well and no complications were encountered. Following the procedure the patient's vital signs were stable. The patient was discharged home in good condition with post-procedural instructions. Time Out: Immediately prior to the procedure, the following was verbally confirmed that there is a signed consent form and that the correct patient, planned procedure, site and side are consistent with documentation and that necessary equipment and/or blood products are available prior to the start of the case. Complications: none EBL: <2 cc Coding 11139 - Cervical Epidural/Interlaminar with fluoroscopy Procedure code (CPT) selection complete Assessment & Plan Assessment & Plan (1) Post herpetic neuralgia: Code(s): B02.29 - Other postherpetic nervous system involvement Category: Medical Plan Patient is status post right T9/10 interlaminar GRACY. Patient tolerated procedure well and was discharged home in stable condition with discharge instructions. All questions were answered. We will follow-up via telephone or in clinic to assess response to therapy. A follow-up appointment was made during today's visit. Orders: Orders FL guidance in treatment room Today B02.29 - Other postherpetic nervous system involvement Coding Level of Care Code Procedure Only Diagnoses Post herpetic neuralgia B02.29 CPT Codes Coding - Joint 10: 60399 - Cervical Epidural/Interlaminar with fluoroscopy ([id number])
[2024-08-02 09:48] VITALS: BP 142/86; PULSE 63; O2SAT 96
== END 2024-08-02 09:53 | disposition home or self-care (01) ==
LOC: HO.PMCPRC 08:33
PROVIDERS: PCP Internal Medicine; Visit Provider Internal Medicine
DX: B02.23 Postherpetic polyneuropathy (principal)
CPT/HCPCS: 62321

== ENCOUNTER 2024-08-10 07:56 | Outpatient (REF) | payer MEDICARE, SELFPAY ==
--- NOTE | ~2024-08-10 | XR_ITS ---
EXAMINATION: XR FINGERS LEFT HISTORY: S60.459A - Superficial foreign body of unspecified finger COMPARISON: There are no prior studies available for comparison. FINDINGS: Four views of the left middle finger are submitted. Osseous mineralization is normal. There is no fracture or dislocation. There is mild degenerative change of the DIP joint. 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 There is a soft tissue calcification adjacent to the 4th DIP joint. No radiopaque foreign body is identified. XR/XR finger LT min 2V IMPRESSION: No evidence of fracture of the left 3rd finger. No radiopaque foreign body is identified. Electronically signed by: Marcos Nicole MD 08/10/2024 10:40 AM EDT
--- OUTSIDE RECORDS SUMMARY | 2024-08-10 07:59 | XMS_ITS ---
[facility] Organization [facility] Address [address] [place] [address] Care Team Providers Care Pododermatologist Name Role Phone Elida Siddiqui Primary Care Provider UnavailBrody Rosales Unavailable [phone] Clau Morel Unavailable [phone] Allergies Allergen (clinical drug ingredient) Drug/Non Drug [...] 024 Encounters Encounter Location Date Provider Diagnosis [facility] [place] [address] [place] [address] 02/22/2024 Clau Morel Other hammer toe(s) (acquired), [...] Provider Name:Clau isaac, 02/22/2025 10:00:00 AM, [address] [place] [address], [phone], Progress Notes * Deondre TRUJILLO ADOB:1945 (78 yo M)Acc No.[id number]:02/22/2024 Progress Note Patient:?Deondre Trujillo Provider:?Clau Morel DPM :1945???Age:78 Y???Sex:Male Jose e:02/22/2024 Address:[facility] [address] [id number] Pcp:Elida Siddiqui Subjective: * Chief Complaints: * [...] Morel DPM Date:? Generated for Carmine jack/Alessandra/Yue on:?08/10/2024 07:59 AM EDT History and Physical Notes * HPI (History [...]
--- OUTSIDE RECORDS SUMMARY | 2024-08-10 07:59 | XMS_ITS | Patient Health Record ---
[facility] Address [address] [facility] [place] [address] Care Team Providers Care Registered Dietician Name Role Phone Elida Siddiqui Primary Care Provider UnavailBrody Rosales Unavailable [phone] Clau Morel Unavailable [phone] Allergies Allergen (clinical drug ingredient) Drug/Non Drug [...] Vaccine Route Administration Date Status Comme nts Influenza Unknown 03/30/2021 Administered Influenza Unknown 01/28/2022 Administered COVID-19 Pfizer BioNTech Vaccine Unknown 03/16/2021 Administered 1st 07/11/20 2nd 08/11/20 Social History Tobacco Use: Social History Observation [...] Problem Acquired hammer toe of right foot (08390064191096 05) Other hammer toe(s) (acquired), right foot (M20.41) Active confirmed Problem Type 2 diabetes mellitus with peripheral angiopathy (690802944) Type 2 diabetes mellitus with diabetic peripheral angiopathy without gangrene (E11.51) Active confirmed Problem Acquired hammer toe of left foot (06973469342223 03) Other hammer toe(s) (acquired), left foot (M20.42) Active confirmed Vital Signs Blood pressure diastolic 70 mm Hg 02/22/2024 Height 5 ft 6 in in 02/22/2024 Blood pressure systolic 120 mm Hg 02/22/2024 Weight 185 lbs 02/22/2024 BMI 29.86 kg/m2 02/22/2024 Encounters Encounter Location Date Provider Diagnosis [facility] [address] [address] 02/22/2024 Clau aMria Teresa Other hammer toe(s) (acquired), right foot [...] Treatment Pending Test Test Name Order Date [id number] NAIL, 6 OR MORE 06/19/2021 [id number] SKIN LESIONS, OVER 4 06/19/19 22 Next Appt Details Provider Name:Clau Brittney isaac, 02/22/2025 10:00:00 AM, [address] [place], [address], Insurance Providers Payer Name Payer Address Payer Phone Subscriber Number Group Number Insured Name Patient Relationship to Insured Coverage Start Date Coverage End Date [facility] [employer] Claims [address] [place] [address] [id number] Deondre Stein Self - patient is the [...]
--- OUTSIDE RECORDS SUMMARY | 2024-08-10 07:59 | XMS_ITS ---
Author Organization [facility] Address [address] [place] [address] Care Team Providers Care Die Maker Bench Stamping Name Role Phone Elida Siddiqui Primary Care Provider Brody Carmona Unavailable [phone] Clau Morel [phone] Encounters Encounter Location Date Provider Diagnosis [address] [address] 02/22/2024 Clau Morel Plan Of Treatment Next Appt Details Provider Name:Clau isaac, 02/22/2025 10:00:00 AM, [address] [place] [address], [phone], Progress Notes * Deondre TRUJILLO ADOB:1945 (78 yo M)Acc No.[id number]:02/22/2024 Progress Note Patient:?LORIEYesenia Deondre Brittney Provider:?Clau Morel DPM :1945???Age:78 Y???Sex:Male Jose e:02/22/2024 Address:[address] [place] Pcp:Elida Siddiqui Subjective: * Chief Complaints: * [...]
--- OUTSIDE RECORDS SUMMARY | 2024-08-10 08:00 | XMS_ITS ---
Author Organization [facility] Address [address] [place] [address] Care Team Providers Care Clay Pigeon Loader Name Role Phone Elida Siddiqui Primary Care Provider UnavailBrody Rosales Unavailable [phone] Clau Morel Unavailable [phone] Allergies Allergen (clinical drug ingredient) Drug/Non Drug [...] 02/16/2023 Encounters Encounter Location Date Provider Diagnosis [facility] [place] [address] [place] [address] 02/16/2023 Clau Morel Other hammer toe(s) (acquired), [...] Reason: Provider Name:Clau isaac, 02/22/2025 10:00:00 AM, [address] [place] [address], [phone], Progress Notes * Deondre TRUJILLO ADOB:1945 (77 yo M)Acc No.[id number]:02/16/2023 Progress Note Patient:?Deondre Trujillo Provider:?Clau Morel DPM :1945???Age:77 Y???Sex:Male Jose e:02/16/2023 Address:[address] [place], [place] [id number] Pcp:Elida Siddiqui Subjective: * Chief Complaints: * [...] Provider:Panda Morel, FRANCO Date:? Generated for Carmine jack/Alessandra/Yue on:?08/10/2024 07:59 [...]
== END 2024-08-10 07:57 | disposition home or self-care (01) ==
LOC: HO.XRAY 07:56
PROVIDERS: PCP Internal Medicine; Visit Provider Internal Medicine
DX: S60.459A Superficial foreign body of unspecified finger, initial encounter (principal)
CPT/HCPCS: 73140

== ENCOUNTER → 2024-08-10 08:01 | Outpatient (BNV) | payer MEDICARE, SELFPAY | PROVIDERS: PCP Internal Medicine; Visit Provider Radiology Diagnostic Radiology | DX: S60.453A Superficial foreign body of left middle finger, initial encounter (principal) | CPT/HCPCS: 73140 ==

== ENCOUNTER 2024-08-17 14:57 | Outpatient (REF) | payer MEDICARE, SELFPAY ==
[2024-08-17 15:32] LABS: MANUAL DIFF FLAG NO
[2024-08-17 16:13] LABS: Basophils Percent Auto 0.4 % (0-2); Eosinophils Absolute Auto 0.2 X10*3/uL (0.0-0.4); Eosinophils Percent Auto 1.5 % (0-4); Hematocrit 41.6 % (42.0-52.0); Hemoglobin 13.6 g/dl (14.0-18.0); Imm Gran Abs Auto 0.04 X10*3/uL (0.00-0.03); Imm Gran Pct Auto 0.4 % (0.0-0.4); Lymphocytes Absolute Auto 0.8 X10*3/uL (1.2-4.9); Lymphocytes Percent Auto 8.4 % (20-40); Mean Corpuscular HGB Conc 32.7 g/dl (31.0-36.0); Mean Corpuscular Hemoglobin 30.2 pg (27.0-33.0); Mean Corpuscular Volume 92.2 fL (80.0-98.0); Mean Platelet Volume 11.2 fL (9.4-12.4); Monocytes Absolute Auto 0.8 X10*3/uL (0.1-1.2); Monocytes Percent Auto 8.5 % (2-11); Neutrophils Percent Auto 80.8 % (45-73); Platelet Count 199 X10*3/uL (160-400); Red Blood Count 4.51 X10*6/uL (4.60-5.80); Red Cell Distribution Width 14.6 % (11.0-16.0); White Blood Count 9.9 X10*3/uL (4.8-10.8)
[2024-08-17 16:17] LABS: Estimated Average Glucose 214 mg/dL; Hemoglobin A1c % 9.1 % (<6.0)
[2024-08-17 17:22] LABS: Vitamin B12 1427 pg/mL (200-900)
[2024-08-17 17:45] LABS: Free T4 (Free Thyroxine) 1.15 ng/dL (0.71-1.85)
[2024-08-17 17:52] LABS: Creatinine Urine 73.86 mg/dL; Microalbum/Creatinine Ratio Ur 254.5 ug/mg cr (<30)
[2024-08-17 17:55] LABS: Alanine Aminotransferase 46 U/L (0-40); Albumin Level 3.7 g/dL (3.5-5.0); Alkaline Phosphatase 74 U/L (39-117); Anion Gap 13 (12-20); Aspartate Amino Transferase 70 U/L (5-37); Bilirubin Total 0.3 mg/dL (0.0-1.0); Blood Urea Nitrogen 33 mg/dL (9-16); Calcium 9.1 mg/dL (8.4-10.2); Carbon Dioxide 24 mmol/L (22-29); Chloride 108 mmol/L (96-108); Cholesterol 122 mg/dL (<200); Estimated Glomerular Filt Rate 40; Glucose Random 191 mg/dL (60-115); HDL Cholesterol 45 mg/dL (>40); LDL Cholesterol Calculated 58 mg/dL (<100); Potassium 4.4 mmol/L (3.3-5.1); Sodium 141 mmol/L (135-145); Thyroid Stimulating Hormone 0.85 uIU/mL (0.32-4.0); Total Protein 6.7 g/dL (6.5-8.0); Triglycerides 99 mg/dL (<150)
[2024-08-22 16:34] LABS: Testosterone, Total 189 ng/dL (250-1100)
== END 2024-08-17 14:58 | disposition home or self-care (01) ==
LOC: HO.LAB 14:57
PROVIDERS: PCP Internal Medicine; Visit Provider Internal Medicine Hypertension Specialist
DX: N18.30 Chronic kidney disease, stage 3 unspecified (principal); I48.0 Paroxysmal atrial fibrillation; R23.2 Flushing; E11.65 Type 2 diabetes mellitus with hyperglycemia; E78.00 Pure hypercholesterolemia, unspecified
CPT/HCPCS: 36415; 80053; 80061; 82043; 82570; 82607; 82746; 83036; 84403; 84439; 84443; 85025; 85027

== ENCOUNTER 2024-08-20 09:46 | Outpatient (AMB) | payer MEDICARE, SELFPAY ==
--- NOTE | 2024-08-20 09:49 | HO.NEPHOV_ITS ---
Vital Signs 08/20/24 09:50 Height 5 ft 6 in Weight 171 lb BMI 27.6 BP 112/62 Blood Pressure Location Rt brachial Position Sitting Pulse 62 Pulse Source Pulse Oximeter Pulse Oximetry (%) 94 Oxygen Delivery Method Room Air Intake Visit Reasons: CANDI/ Conf Sweet Potato Disintegrator Required: No Accompanied by: Self / Same As Patient Allergies lisinopril Allergy (Unknown, Verified 08/20/24 09:52) Unknown Penicillins [PENICILLINS] Allergy (Unknown, Verified 08/20/24 09:52) UNKNOWN REACTION-CHILDHOOD ALLERGY Medication List - Last Reconciled 08/20/24 by Damián Gillespie MD amiodarone 200 mg PO DAILY apixaban (Eliquis) 5 mg PO BID 30 days atorvastatin 40 mg PO DAILY [AUTO PAP 6-20 cm H2O humidified AIR As directed] capsaicin 0.1% (Arthritis Pain Relief (capsaicin)) 1 appl topical TID cholecalciferol (vitamin D3) 75 mcg PO MOWEFR@1000 cyanocobalamin (vitamin B-12) 2,500 mcg PO DAILY empagliflozin 25 mg PO DAILY ezetimibe 10 mg PO DAILY fenofibrate 160 mg PO DAILY folic acid 0.4 mg PO DAILY lidocaine-prilocaine 2.5-2.5 % 1 appl topical ONCE 1 day linagliptin (Tradjenta) 5 mg PO DAILY 30 days pregabalin 100 mg PO TID 30 days HPI Comments Details: 77-year-old male with AFib on Eliquis, JITENDRA on CPAP, peripheral arterial disease, coronary artery disease, dvq-flcvvcr-gtywdroog diabetes mellitus, CKD stage 3, congestive heart failure with reduced ejection fraction Was recently admitted with acute kidney injury with a serum creatinine of more than 4 mg/dL. Prior to this he was inadvertently taking excessive dose of Lasix. He was supposed to be on 40 mg once a day but he was taking twice a day. During hospitalization diuretics were held he was given IV fluids. Renal function improved in the recent creatinine is 1.9 mg/dL. Currently renal function is close to baseline. He has not on any diuretics. 08/20/24: Overall doing OK; c/o increased urinary frequency ; Nocturia x 3 No dysuria PFSH Medical History (Updated 07/20/24 @ 10:35 by Elida Siddiqui MD) Dyspnea on exertion Atrial fibrillation Acute heart failure Atrial fibrillation with RVR Cardiomyopathy Cataracts, bilateral Chronic otitis media Peripheral vascular disease Type 2 diabetes mellitus with hyperglycemia Erectile dysfunction Post herpetic neuralgia COPD (chronic obstructive pulmonary disease) Obstructive sleep apnea Rotator cuff tear, left Carotid stenosis Tubular adenoma of colon Hypertension Hypercholesterolemia PVCs (premature ventricular contractions) NICM (nonischemic cardiomyopathy) CAD (coronary artery disease) Surgical History History of cardiac radiofrequency ablation History of colonoscopy History of cataract surgery History of repair of rotator cuff History of cardiac catheterization History of tonsillectomy History of carotid endarterectomy Family History Father H/O ETOH abuse Hypertension Mother Hypertension Brother Diabetes Brother No problems noted. Sister No problems noted. Sister No problems noted. Social History Household Members: None Housing: House Do you presently have visiting nurse or other home services: No Alcohol intake: current Alcohol intake frequency: holidays/special occasions only Alcohol type: beer Comment: no instruments used Patient Tobacco Use Status: Never used Tobacco Tobacco use type: Cigarette e-Cigarette/Vaping Use: Never Used Second Hand Smoke Exposure: No Advance Directives Date on File: 11/17/21 service: No Current occupational status: employed Cognitive needs: No Hearing needs: Yes Vision needs: Yes Physical Exam Vital Signs: Last Vital Signs Pulse 62 08/20/24 09:50 BP 112/62 08/20/24 09:50 Pulse Ox 94 08/20/24 09:50 Oxygen Delivery Method Room Air 08/20/24 09:50 BMI result Body Mass Index 27.6 Const General: comfortable Nutritional Appearance: well nourished Orientation/consciousness: patient oriented x3 HEENT Head: No normal to inspection Mouth: moist mucous membranes Neck Neck: Yes supple and Yes no JVD Resp Auscultation: clear to auscultation bilaterally and no rales Cardio Jugular venous distension: no JVD Palpation: no palpable S3 and no palpable S4 Heart sounds: no rubs GI Palpation (GI): Soft to palpation and nontender Percussion: No Fluid wave present General: Yes no CVA tenderness Back/Spine/Pelvis Back: no CVA tenderness Skin General skin exam: no rashes or lesions noted Neuro General: patient oriented x3 Extrem General: Yes no pedal edema and No clubbing Results Reviewed Nephrology Results: Hgb 13.6 g/dl (14.0-18.0) L 08/17/24 WBC 9.9 X10*3/uL (4.8-10.8) 08/17/24 Plt Count 199 X10*3/uL (160-400) 08/17/24 Sodium 141 mmol/L (135-145) 08/17/24 Potassium 4.4 mmol/L (3.3-5.1) 08/17/24 Chloride 108 mmol/L (96-108) 08/17/24 Carbon Dioxide 24 mmol/L (22-29) 08/17/24 BUN 33 mg/dL (9-16) H 08/17/24 Creatinine 1.65 mg/dL (0.5-1.4) H 08/17/24 Calcium 9.1 mg/dL (8.4-10.2) 08/17/24 Urine Creatinine 73.86 mg/dL 08/17/24 Assessment & Plan Assessment & Plan (1) CKD (chronic kidney disease) stage 3, GFR 30-59 ml/min: Code(s): N18.30 - Chronic kidney disease, stage 3 unspecified Category: Medical Qualifiers: Chronic kidney disease stage 3 subtype: stage 3b (GFR 30-44) Qualified Code(s): N18.32 - Chronic kidney disease, stage 3b (2) Congestive heart failure: Comment: Preserved ejection fraction Code(s): I50.9 - Heart failure, unspecified Category: Medical Qualifiers: Heart failure type: diastolic Heart failure chronicity: chronic Qualified Code(s): I50.32 - Chronic diastolic (congestive) heart failure (3) Acute kidney injury superimposed on chronic kidney disease: Code(s): N17.9 - Acute kidney failure, unspecified; N18.9 - Chronic kidney disease, unspecified Category: Medical Plan Elderly man with acute kidney injury superimposed on chronic kidney disease. Acute kidney injury was primarily due to hypoperfusion from high dose of diuretics and volume depletion. After holding the diuretics and with cautious hydration renal function improved. At present he appears euvolemic. BP is better controled continue to hold Lasix Cr stable at 1.7 - at baseline Polyuria may be due to the use of SGLT-2 inhibitor Waiting to see as well I have encouraged him to keep watching his blood pressure and weights at home. Coding Level of Care Code Est Pt Level 4 (01347) Diagnoses Stage 3b chronic kidney disease N18.32 Chronic kidney disease stage 3 subtype: stage 3b (GFR 30-44) Chronic diastolic congestive heart failure I50.32 Heart failure type: diastolic Heart failure chronicity: chronic Acute kidney injury superimposed on chronic kidney disease N17.9; N18.9
[2024-08-20 09:50] VITALS: BP 112/62; PULSE 62; O2SAT 94; BMI 27.6
== END 2024-08-20 10:05 | disposition home or self-care (01) ==
LOC: HO.HKA 09:47
PROVIDERS: PCP Internal Medicine; Visit Provider Internal Medicine Hypertension Specialist
DX: N18.32 Chronic kidney disease, stage 3b (principal); I50.32 Chronic diastolic (congestive) heart failure; N17.9 Acute kidney failure, unspecified; N18.9 Chronic kidney disease, unspecified
CPT/HCPCS: 99214

== ENCOUNTER → 2024-08-20 09:46 | Outpatient (BNVA) | payer MEDICARE, SELFPAY | PROVIDERS: PCP Internal Medicine; Visit Provider Internal Medicine Hypertension Specialist | DX: I48.91 Unspecified atrial fibrillation (principal); I25.10 Atherosclerotic heart disease of native coronary artery without angina pectoris; E11.22 Type 2 diabetes mellitus with diabetic chronic kidney disease; E11.51 Type 2 diabetes mellitus with diabetic peripheral angiopathy without gangrene; G47.33 Obstructive sleep apnea (adult) (pediatric); I50.32 Chronic diastolic (congestive) heart failure; N17.9 Acute kidney failure, unspecified; N18.32 Chronic kidney disease, stage 3b; Z79.01 Long term (current) use of anticoagulants; Z99.89 Dependence on other enabling machines and devices; Z79.899 Other long term (current) drug therapy | CPT/HCPCS: 99212 ==

== ENCOUNTER 2024-08-30 09:06 | Outpatient (AMB) | payer MEDICARE, SELFPAY ==
--- NOTE | 2024-08-30 09:10 | A.OFFVIS_ITS ---
Vital Signs 08/30/24 09:14 Height 5 ft 6 in Weight 172 lb 6 oz BMI 27.8 BP 126/60 Blood Pressure Location Lt brachial Position Sitting Pulse 68 Pulse Source Pulse Oximeter Pulse Oximetry (%) 96 Oxygen Delivery Method Room Air Intake Visit Reasons: s/p Right T10-T11 parasagittal GRACY Allergies lisinopril Allergy (Unknown, Verified 08/30/24 09:13) Unknown Penicillins [PENICILLINS] Allergy (Unknown, Verified 08/30/24 09:13) UNKNOWN REACTION-CHILDHOOD ALLERGY HPI Comments Details: The patient is an 79-year-old male presenting with management of postherpetic neuralgia and chronic pain. On August 02, the patient received a right T9-T10 interlaminar epidural steroid injection with postherpetic neuralgia affecting the right side radiating to the back and right side of his abdomen. His baseline pain level remains around 2/10 since the injection, escalating to 5/10 on cold and rainy days. Past pain management efforts included the use of Qutenza (8% capsaicin), which offered minimal relief. Currently, the patient takes pregabalin (Lyrica) 100 mg, three times daily, although he voluntarily reduces the dose during the evening. He reports insurance challenges to allow him to take 150 mg twice daily. The patient als utilizes a Stim[employer] neurostimulation device to maintain pain control, albeit experiencing transmitter inefficiencies. [facility] Historical x-ray findings endorsed appropriate lead placement of the device. He experiences an average 50%-60% improvement since injection treatment, with the pain level largely unresponsive to prior pharmacologic interventions. - Pain onset: chronic pain due postherpetic neuralgia. - Current pain level at baseline 2/10, potentially escalating to 5/10. - Primary pain location at the right side of the abdomen with radiation towards the mid back. - Damp and cold weather exacerbates pain levels. - Pregabalin (Lyrica) provides partial analgesia. - Daily activities minimally interrupted despite pain fluctuations. - Relief reported by neurostimulation device use, needs adjustments. - Affect: Maintains a positive outlook despite pain challenges; engages in part- time work. - Analgesia: Current regimen includes pregabalin (Lyrica) 100 mg taken thrice daily; experiences approximately 50% pain relief. - Adverse effects: Reports no major adverse effects from current medication regimen. - Activities of Daily Living: Engages in part-time work (four hours a day, four days a week); no significant interference from pain. - Aberrant Drug Related Behaviors: No signs of misuse or non-adherence to medication regimen. Past Procedures: 08/02/24: Right T9-T10 Interlaminar GRACY -50-60% ongoing pain relief PRIOR: Patient presents for 2nd application of capsaicin 8% topical patch for ongoing post herpetic neuralgia in the T10-T11 distribution on the right side. He reports minimal pain relief for few days after last application and therefore does not want to continue with Qutenza. Patient was informed that due to the chronic nature of PHN, ongoing treatments with Qutenza every 3 months may be necessary to achieve optimal benefit. Patient declined ongoing treatments at this time and is interested to proceed with therapeutic GRACY injection as next steps. He also reports partial benefit with Lyrica. Denies any recent cough, cold, infection, fever or other significant changes in medical history since last office visit. PRIOR: Patient presents today to discuss thoracic and lumbar x-ray results. Patient continues to endorse neuropathic pain around his right ribs and right mid abdomen pain. He has been in regular contact with [employer] representatives to adjust his programming and obtain more precise brace garmet to keep his device in proper location. Xrays were reviewed today with patient and are noted below. Patient is interested to restart Qutenza patch for PHN prior to injectio ns. He also reports lower back pain with bending or walking. Denies radicular symptoms to his lower extremities. Denies any recent cough, cold, infection, fever, any significant changes in her medical history, medications or recent hospitalizations. PRIOR: Patient is a pleasant 78 years old male presents today for re-establishing care with our office. He was last seen in our office summer with the plan for SCS implant for a painful post-herpetic neuralgia. Patient had good results with the SCS trial providing him 70-80% pain relief per chart review. Patient reports he had a Stimwave PNS implant placed on 01/2020 at [facility] with multiple program re-adjustments without significant pain improvement. He initially developed right sided shingles rash in 03/2017 in T10-T11 distribution as he shows this today and has persistent and residual burning pain with tingling around his right ribs extending into his right mid-abdomen. Patient reports he lost his in July this year and has been having increased levels of stress and pain. Pain had been worsening over the last year without the recurrence of any new rashes. Patient tried and failed T11-T12 GRACY on 05/02/18, 8% Qutenza patch application on 09/19/18, gabapentin, numerous topical products, CBD oil, lidocaine patches, TENS unit and acupuncture without any benefit. Denies any recent cough, cold, infection, fever, any significant changes in her medical history, medications or recent hospitalizations. Reports mild low back pain without radiation into his lower extremities. Location: Right side of abdomen Duration: Chronic pain for 5 years, shingles in 2017 Characteristics of symptom or complaint: Aching, stabbing, burning, tingling, sharp Aggravating or associated factors: Touch, cold or damp weather Relieving factors: CBD oil, gabapentin, Icyhot, lidocaine, pregabalin 100 mg TID Treatment: Chiroptactor, acupuncture, TENS unit, Stim[employer] PNS implant [facility] Medical History Dyspnea on exertion Atrial fibrillation Acute heart failure Atrial fibrillation with RVR Cardiomyopathy Cataracts, bilateral Chronic otitis media Peripheral vascular disease Type 2 diabetes mellitus with hyperglycemia Erectile dysfunction Post herpetic neuralgia COPD (chronic obstructive pulmonary disease) Obstructive sleep apnea Rotator cuff tear, left Carotid stenosis Tubular adenoma of colon Hypertension Hypercholesterolemia PVCs (premature ventricular contractions) NICM (nonischemic cardiomyopathy) CAD (coronary artery disease) Surgical History History of cardiac radiofrequency ablation History of colonoscopy History of cataract surgery History of repair of rotator cuff History of cardiac catheterization History of tonsillectomy History of carotid endarterectomy Family History Father H/O ETOH abuse Hypertension Mother Hypertension Brother Diabetes Brother No problems noted. Sister No problems noted. Sister No problems noted. Social History Household Members: None Housing: House Do you presently have visiting nurse or other home services: No Alcohol intake: current Alcohol intake frequency: holidays/special occasions only Alcohol type: beer Comment: no instruments used Patient Tobacco Use Status: Never used Tobacco Tobacco use type: Cigarette e-Cigarette/Vaping Use: Never Used Second Hand Smoke Exposure: No Advance Directives Date on File: 11/17/21 service: No Current occupational status: employed Cognitive needs: No Hearing needs: Yes Vision needs: Yes Review of Systems Const Details: - Neurological: Reports persistent right-sided postherpetic pain, varies between 2/10 and 5/10. - Skeletal: Denies significant changes in arthritis symptoms; reports pain linked to weather conditions. All systems reviewed & are unremarkable except as noted in HPI and below Physical Exam Vital Signs: Last Vital Signs Pulse 68 08/30/24 09:14 BP 126/60 08/30/24 09:14 Pulse Ox 96 08/30/24 09:14 Oxygen Delivery Method Room Air 08/30/24 09:14 BMI result Body Mass Index 27.8 General: Appears afebrile. Alert and oriented. Mood and affect appropriate. Follows and participates in conversation appropriately. Respiratory effort is unlabored. No cough. Able to transition from sit to stand unassisted. Ambulates with bilaterally normal heel strike and toe off. Results Reviewed Results Reviewed: XR THORACIC SPINE 12/20/23 CLINICAL INFORMATION: Shingles. Pain. FINDINGS: No fracture or bone destruction is seen. The vertebral alignment appears unremarkable. No disc space narrowing is appreciated. No abnormality of the paraspinal soft tissues is seen. Calcification of the aorta and coronary arteries. Status post coronary arterial stent placement. Tip of a metallic lead projects just to the left of midline at T9. IMPRESSION: No acute finding. XR LUMBOSACRAL SPINE WITH OBLIQUES 12/20/23 CLINICAL INFORMATION: Shingles. Pain. FINDINGS: Moderate multilevel disc space narrowing. Facet degenerative change at L2-S1. Mild lumbar dextrocurvature. The vertebral bodies and posterior elements appear unremarkable. Vertebral body heights appear preserved. No evidence of spondylolisthesis. The paraspinal soft tissues appear unremarkable. Heavy vascular calcification IMPRESSION: Degenerative change. Assessment & Plan Assessment & Plan (1) Post herpetic neuralgia: Code(s): B02.29 - Other postherpetic nervous system involvement Category: Medical (2) Chronic low back pain: Code(s): M54.50 - Low back pain, unspecified; G89.29 - Other chronic pain Category: Medical Plan Patient is one month status post right T9/10 interlaminar GRACY with ongoing 50- 60% pain relief. The patient's postherpetic neuralgia and chronic pain management requires ongoing pregabalin Lyrica) at 100 mg three times per day, balancing efficacy against insurance constraints. The patient plans to engage with [employer] device representatives for potential neurostimulation device adjustments to substitute transmitters. Future consideration of GRACY if educational outputs demonstrate prolongation of symptom relief, alongside possible Qutenza reassessment, will maintain clinical vigilance over progressive symptomatic response. Patient reports continued work engagement provides functional and social stability. All questions and concerns have been answered and patient agreed with the plan. Follow up as needed. Patient was informed and verbally consented to the use of an ambient scribe for clinic note documentation during this visit. Patient Instructions: - Continue taking pregabalin (Lyrica) 100 mg three times daily as discussed. - Contact [employer] training representative to address transmitter issues and consider device adjustments. - Monitor pain levels and note any patterns of exacerbation or relief. - Maintain part-time work schedule and activities as tolerated. - Schedule follow-up to reassess pain management plan if symptoms persist or worsen. - Return for evaluation should pain levels escalate beyond current baseline or if new symptoms arise. Coding Level of Care Code Est Pt Level 3 (14885) Complex EM visit Add On G2211 Diagnoses Post herpetic neuralgia B02.29 Chronic low back pain M54.50; G89.29
[2024-08-30 09:14] VITALS: BP 126/60; PULSE 68; O2SAT 96; BMI 27.8
--- OUTSIDE RECORDS SUMMARY | 2024-08-30 09:24 | XMS_ITS ---
Author Organization [facility] Address [address] [place] [address] Care Team Providers Care Gun Synchronizer Name Role Phone Elida Siddiqui Primary Care Provider Brody Carmona Unavailable [phone] Clau Morel [phone] Encounters Encounter Location Date Provider Diagnosis [address] [address] 02/22/2024 Clau Morel Plan Of Treatment Next Appt Details Provider Name:Clau isaac, 02/22/2025 10:00:00 AM, [address] [place] [address], [phone], Progress Notes * Deondre TRUJILLO ADOB:1945 (79 yo M)Acc No.[id number]:02/22/2024 Progress Note Patient:?LORIEYesenia Deondre Brittney Provider:?Clau Morel DPM :1945???Age:78 Y???Sex:Male Jose e:02/22/2024 Address[address] [id number] Pcp:Elida Siddiqui Subjective: * Chief Complaints: * ??? * Medical History:? Objective: * Vitals:? Assessment: Plan: * Treatment: * Images: * The named appointment provid er may or may not be the originator of this progress note, and it is not deemed complete until electronically signed by the appointment provider. Sign off status: Pending * Provider:?Clau Morel DPM Date:? Generated for Carmine jack/Alessandra/Yue on:?08/30/2024 09:24 AM EDT
--- OUTSIDE RECORDS SUMMARY | 2024-08-30 09:24 | XMS_ITS | Patient Health Record ---
Author Organization [facility] Address [address] [facility] [place] [address] Care Team Providers Care Apparatus Operator Name Role Phone Elida Siddiqui Primary Care Provider UnavailBrody Rosales Unavailable [phone] Clau Morel Unavailable [phone] Allergies Allergen (clinical drug ingredient) Drug/Non Drug [...] Problem Acquired hammer toe of right foot (35613904916050 05) Other hammer toe(s) (acquired), right foot (M20.41) Active confirmed Problem Type 2 diabetes mellitus with peripheral angiopathy (647950657) Type 2 diabetes mellitus with diabetic peripheral angiopathy without gangrene (E11.51) Active confirmed Problem Acquired hammer toe of left foot (27159831766662 03) Other hammer toe(s) (acquired), left foot (M20.42) Active confirmed Vital Signs Blood pressure diastolic 70 mm Hg 02/22/2024 Height 5 ft 6 in in 02/22/2024 Blood pressure systolic 120 mm Hg 02/22/2024 Weight 185 lbs 02/22/2024 BMI 29.86 kg/m2 02/22/2024 Encounters Encounter Location Date Provider Diagnosis [facility] [address] [address] 02/22/2024 Clau Maria Teresa Other hammer toe(s) [...] Treatment Pending Test Test Name Order Date [id number] NAIL, 6 OR MORE 06/19/2021 [id number] SKIN LESIONS, OVER 4 06/19/19 22 Next Appt Details Provider Name:Clau Brittney isaac, 02/22/2025 10:00:00 AM, [address] [place], [phone], Insurance Providers Payer Name Payer Address Payer Phone Subscriber Number Group Number Insured Name Patient Relationship to Insured Coverage Start Date Coverage End Date [facility] [employer] Claims [address] [place] [address] [id number] Deondre Stein Self - patient is the [...]
--- OUTSIDE RECORDS SUMMARY | 2024-08-30 09:24 | XMS_ITS ---
Author Organization [facility] Address [address] [place] [address] Care Team Providers Care Sheet Metal Work Furnace Installer Name Role Phone Elida Siddiqui Primary Care Provider UnavailBrody Rosales Unavailable [phone] Clau Morel Unavailable [phone] Allergies Allergen (clinical drug ingredient) Drug/Non Drug [...] 024 Encounters Encounter Location Date Provider Diagnosis [facility] [place] [address] [place] [address] 02/22/2024 Clau Morel Other hammer toe(s) (acquired), [...] Reason: Provider Name:Clau isaac, 02/22/2025 10:00:00 AM, [address] [place] [address], [phone], Progress Notes * Deondre TRUJILLO ADOB:1945 (78 yo M)Acc No.[id number]:02/22/2024 Progress Note Patient:?Deondre Trujillo Provider:?Clau Morel DPM :1945???Age:78 Y???Sex:Male Jose e:02/22/2024 [address] [address] [id number] Pcp:Elida Siddiqui Subjective: * Chief Complaints: * [...] DPM Date:? Generated for Carmine jack/Alessandra/Yue on:?08/30/2024 09:23 AM EDT History and Physical Notes * [...] cture, No Charcot collapse/destruction noted at [facility] FOOTWEAR EVALUATION: worn, non-supportiv e, shoe gear properties exacerbate patient's foot/toe deformity [...]
== END 2024-08-30 09:29 | disposition home or self-care (01) ==
PROVIDERS: PCP Internal Medicine; Visit Provider Nurse Practitioner Family
DX: B02.29 Other postherpetic nervous system involvement (principal); M54.50 Low back pain, unspecified; G89.29 Other chronic pain
CPT/HCPCS: 99213; G2211

== ENCOUNTER → 2024-08-30 09:06 | Outpatient (BNVA) | payer MEDICARE, SELFPAY | PROVIDERS: PCP Internal Medicine; Visit Provider Nurse Practitioner Family | DX: M54.50 Low back pain, unspecified (principal); G89.29 Other chronic pain; B02.29 Other postherpetic nervous system involvement | CPT/HCPCS: 99212 ==

== ENCOUNTER 2024-09-14 10:37 | Outpatient (AMB) | payer MEDICARE, SELFPAY ==
--- NOTE | 2024-09-14 10:42 | MHC.OFFVIS ---
Intake Visit Reasons: peyronie's disease Intake Note: Pt presents to the office today for a new patient visit for Peyronie's Disease. Allergies lisinopril Allergy (Unknown, Verified 09/14/24 10:42) Unknown Penicillins [PENICILLINS] Allergy (Unknown, Verified 09/14/24 10:42) UNKNOWN REACTION-CHILDHOOD ALLERGY HPI Comments Details: Dextrose is a pleasant male. He is a patient of Dr. James. He seen for the following urologic conditions - bladder outlet obstruction - erectile dysfunction setting of diabetes - Peyronie's disease Poorly controlled diabetic HbA1c 9.1 - he was very surprised as prior HbA1c had apparently less than 7 Low testosterone 189 Background of chronic pain syndrome with spinal cord stimulator On amiodarone Explained it is very difficult to manage frequent urination when diabetes is poorly controlled Lower urinary tract symptoms Trial Flomax - Daytime urination is frequent, occurring multiple times daily. - Nocturnal urination occurs two to three times nightly. Urinary Symptoms Review - Increased urination frequency during daytime and nighttime. - Nocturnal incontinence managed by wearing a diaper. - Weak urine stream noted. - Previously hospitalized with catheterization followed by normalized urination. - No significant pain or discomfort otherwise noted with urination. COUNTS INCLUDE 234 BEDS AT THE [facility] Medical History Dyspnea on exertion Atrial fibrillation Acute heart failure Atrial fibrillation with RVR Cardiomyopathy Cataracts, bilateral Chronic otitis media Peripheral vascular disease Type 2 diabetes mellitus with hyperglycemia Erectile dysfunction Post herpetic neuralgia COPD (chronic obstructive pulmonary disease) Obstructive sleep apnea Rotator cuff tear, left Carotid stenosis Tubular adenoma of colon Hypertension Hypercholesterolemia PVCs (premature ventricular contractions) NICM (nonischemic cardiomyopathy) CAD (coronary artery disease) Surgical History History of cardiac radiofrequency ablation History of colonoscopy History of cataract surgery History of repair of rotator cuff History of cardiac catheterization History of tonsillectomy History of carotid endarterectomy Family History Father H/O ETOH abuse Hypertension Mother Hypertension Brother Diabetes Brother No problems noted. Sister No problems noted. Sister No problems noted. Social History Household Members: None Housing: House Do you presently have visiting nurse or other home services: No Alcohol intake: current Alcohol intake frequency: holidays/special occasions only Alcohol type: beer Comment: no instruments used Patient Tobacco Use Status: Never used Tobacco Tobacco use type: Cigarette e-Cigarette/Vaping Use: Never Used Second Hand Smoke Exposure: No Advance Directives Date on File: 11/17/21 service: No Current occupational status: employed Cognitive needs: No Hearing needs: Yes Vision needs: Yes Review of Systems Const Denies chills and Denies fever(s) Card Reports no additional complaints and Denies syncope Resp Denies cough GI Denies abdominal pain and Denies heartburn Reports as per HPI and Denies change in libido Neuro Denies syncope Psych Denies change in libido Endo Denies change in libido Physical Exam Const General: cooperative, healthy appearing, comfortable and no acute distress Orientation/consciousness: patient oriented x3 HEENT Face and sinus: Yes normal facial exam Mouth: moist mucous membranes Neck Neck: Yes normal visual inspection, Yes full ROM and Yes trachea midline Chest Chest palpation & inspection: normal inspection of the chest Resp Effort & Inspection: normal respiratory effort, able to speak in complete sentences and no respiratory distress GI Inspection: Yes normal to inspection Back/Spine/Pelvis Cervical Spine: normal cervical lordosis Thoracic/Lumbar Spine: thoracic and lumbar spine normal to inspection Skin General skin exam: no rashes or lesions noted Neuro General: patient oriented x3, gait normal, tone normal and moves all extremities Extrem General: Yes normal to inspection and Yes capillary refill normal Assessment & Plan Assessment & Plan (1) Bladder outlet obstruction: Code(s): N32.0 - Bladder-neck obstruction Category: Medical Plan Plan Patient informed verbally consented to the use of an ambient scribe 1. Benign Prostatic Hyperplasia Plan: Start Flomax (Tamsulosin). Review symptoms in three months. 2. Type 2 Diabetes Mellitus With Hyperglycemia Plan: Emphasize dietary control; avoid carbohydrates. Consider medication changes. 3. Chronic Kidney Disease Plan: Continue regular filling separator follow-ups. Monitor kidney function. Discussion Notes I discussed with the patient the importance of achieving better glycemic control, emphasizing the correlation between glucose levels and urinary frequency. A low-carbohydrate dietary plan was strongly advised to manage diabetes effectively. I prescribed Flomax to assist with BPH-related urinary symptoms and informed the patient about its potential benefits on urine flow and frequency. We discussed the follow-up plan involving monitoring and reassessment of symptoms with focus on maintaining renal function stability. Patient Instructions - Follow a strict low-carbohydrate diet: avoid bread, rice, tropical fruits, juices. - Start taking Flomax as prescribed to improve urinary symptoms. - Monitor blood glucose levels regularly, engage with the diabetes care team. - Schedule a follow-up in three months to evaluate the effectiveness of Flomax. - Report any changes in kidney health to your filling separator. Medications: New tamsulosin (Flomax) 0.4 mg PO BEDTIME 30 days 30 tabs 2RF N32.0 - Bladder-neck obstruction Patient Instructions: This note is constructed using voice recognition software. While every effort has been made to ensure accuracy table cut off saw operator errors may have been included. Imaging studies, laboratory and physical exam results were discussed and reviewed in detail. No major barriers to patient understanding were identified. An opportunity to ask questions regarding the treatment plan was provided. All questions were answered. The patient expressed understanding and agreement with the above treatment plan. The patient is aware they should contact our office by phone for worsening of their current condition or the appearance of new urologic symptoms. Compliance is encouraged with any medications and followup testing that is ordered. It is a privilege to participate in the urologic care of your patient. If you have any questions or concerns regarding treatment for the above conditions, or other urologic issues, please do not hesitate to contact me. The office telephone contact is [phone]. Sincerely, Dr Urbano Issa MD, [facility] - Urology Compassionate Specialist Care for the Genitourinary System Coding Level of Care Code New Pt Level 4 (81815) Complex EM visit Add On G2211 Diagnoses Bladder outlet obstruction N32.0
--- OUTSIDE RECORDS SUMMARY | 2024-09-14 11:39 | XMS_ITS ---
Author Organization [facility] Address [address] [place] [address] Care Team Providers Care Claim Specialist Name Role Phone Elida Siddiqui Primary Care Provider Brody Carmona Unavailable [phone] Clau Morel [phone] Encounters Encounter Location Date Provider Diagnosis [address] [address] 02/22/2024 Clau Morel Plan Of Treatment Next Appt Details Provider Name:Clau isaac, 02/22/2025 10:00:00 AM, [address] [place] [address], [phone], Progress Notes * Deondre TRUJILLO ADOB:1945 (79 yo M)Acc No.[id number]:02/22/2024 Progress Note Patient:?LORIEYesenia Deondre Brittney Provider:?Clau Morel DPM :1945???Age:78 Y???Sex:Male Jose e:02/22/2024 Address[address] [id number] Pcp:Elida Siddiqui Subjective: * Chief Complaints: * ??? * Medical History:? Objective: * Vitals:? Assessment: Plan: * Treatment: * Images: * The named appointment provid er may or may not be the originator of this progress note, and it is not deemed complete until electronically signed by the appointment provider. Sign off status: Pending * Provider:?Clau Morel DPM Date:? Generated for Carmine jack/Alessandra/Yue on:?09/14/2024 11:39 AM EDT
--- OUTSIDE RECORDS SUMMARY | 2024-09-14 11:39 | XMS_ITS ---
Author Organization [facility] Address [address] [place] [address] Care Team Providers Care Christian Science Nurse Name Role Phone Elida Siddiqui Primary Care Provider UnavailBrody Rosales Unavailable [phone] Clau Morel Unavailable [phone] Allergies Allergen (clinical drug ingredient) Drug/Non Drug [...] 024 Encounters Encounter Location Date Provider Diagnosis [facility] [place] [address] [place] [address] 02/22/2024 Clau Morel Other hammer toe(s) (acquired), [...] Reason: Provider Name:Clau isaac, 02/22/2025 10:00:00 AM, [address] [place] [address], [phone], Progress Notes * Deondre TRUJILLO ADOB:1945 (78 yo M)Acc No.[id number]:02/22/2024 Progress Note Patient:?Deondre Trujillo Provider:?Clau Morel DPM :1945???Age:78 Y???Sex:Male Jose e:02/22/2024 Address:[facility] [address], [place] Pcp:Elida Siddiqui Subjective: * Chief Complaints: * [...] for Carmine jack/Alessandra/Yue on:?09/14/2024 11:39 AM EDT History and Physical Notes * [...]
--- OUTSIDE RECORDS SUMMARY | 2024-09-14 11:39 | XMS_ITS | Patient Health Record ---
Author Organization [facility] Address [address] [facility] [place] [address] Care Team Providers Care Maintenance Trainer Name Role Phone Elida Siddiqui Primary Care Provider UnavailBrody Rosales Unavailable [phone] Clau Morel Unavailable [phone] Allergies Allergen (clinical drug ingredient) Drug/Non Drug [...] Problem Acquired hammer toe of right foot (22542468785308 05) Other hammer toe(s) (acquired), right foot (M20.41) Active confirmed Problem Type 2 diabetes mellitus with peripheral angiopathy (724492199) Type 2 diabetes mellitus with diabetic peripheral angiopathy without gangrene (E11.51) Active confirmed Problem Acquired hammer toe of left foot (25917379439306 03) Other hammer toe(s) (acquired), left foot (M20.42) Active confirmed Vital Signs Blood pressure diastolic 70 mm Hg 02/22/2024 Height 5 ft 6 in in 02/22/2024 Blood pressure systolic 120 mm Hg 02/22/2024 Weight 185 lbs 02/22/2024 BMI 29.86 kg/m2 02/22/2024 Encounters Encounter Location Date Provider Diagnosis [facility] [address] [address] 02/22/2024 Clau Maria Teresa Other hammer toe(s) [...] Treatment Pending Test Test Name Order Date [id number] NAIL, 6 OR MORE 06/19/2021 51594-JGNJ SKIN LESIONS, OVER 4 06/19/19 22 Next Appt Details Provider Name:Clau Brittney isaac, 02/22/2025 10:00:00 AM, [address] [place], [address], Insurance Providers Payer Name Payer Address Payer Phone Subscriber Number Group Number Insured Name Patient Relationship to Insured Coverage Start Date Coverage End Date [facility] [employer] Claims [address] [place] [address] [id number] Deondre Stein Self - patient is the [...]
== END 2024-09-14 11:10 | disposition home or self-care (01) ==
LOC: HO.HUSH 10:38
PROVIDERS: PCP Internal Medicine; Visit Provider Urology
DX: N32.0 Bladder-neck obstruction (principal)
CPT/HCPCS: 99204; G2211

== ENCOUNTER → 2024-09-14 10:37 | Outpatient (BNVA) | payer MEDICARE, SELFPAY | PROVIDERS: PCP Internal Medicine; Visit Provider Urology | DX: N32.0 Bladder-neck obstruction (principal); N52.9 Male erectile dysfunction, unspecified; N48.6 Induration penis plastica | CPT/HCPCS: 99202 ==

== ENCOUNTER 2024-10-12 07:40 | Outpatient (REF) | payer MEDICARE, SELFPAY ==
--- OUTSIDE RECORDS SUMMARY | 2024-10-12 07:42 | XMS_ITS | Patient Health Record ---
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.51) Active confirmed Problem Acquired hammer toe of left foot (99230491371575 03) Other hammer toe(s) (acquired), left foot (M20.42) Active confirmed Vital Signs Blood pressure diastolic 70 mm Hg 02/22/2024 Height 5 ft 6 in in 02/22/2024 Blood pressure systolic 120 mm Hg 02/22/2024 Weight 185 lbs 02/22/2024 BMI 29.86 kg/m2 02/22/2024 Encounters Encounter Location Date Provider Diagnosis [facility] [address] [address] 02/22/2024 Clau Maria Teresa Other hammer toe(s) [...] Treatment Pending Test Test Name Order Date [id number] NAIL, 6 OR MORE 06/19/2021 [id number] SKIN LESIONS, OVER 4 06/19/19 22 Next Appt Details Provider Name:Clau Brittney isaac, 02/22/2025 10:00:00 AM, [address] [place], [address], Insurance Providers Payer Name Payer Address Payer Phone Subscriber Number Group Number Insured Name Patient Relationship to Insured Coverage Start Date Coverage End Date [facility] [employer] Claims [address] [place] [address] [id number] Deondre Stein Self - patient is the [...]
--- OUTSIDE RECORDS SUMMARY | 2024-10-12 07:42 | XMS_ITS ---
Author Organization [facility] Address [address] [place] [address] Care Team Providers Care Wardrobe Coordinator Name Role Phone Elida Siddiqui Primary Care Provider UnavailBrody Rosales Unavailable [phone] Clau Morel Unavailable [phone] Allergies Allergen (clinical drug ingredient) Drug/Non Drug [...] 024 Encounters Encounter Location Date Provider Diagnosis [facility] [place] [address] [place] [address] 02/22/2024 Clau Morel Other hammer toe(s) (acquired), [...] Reason: Provider Name:Clau isaac, 02/22/2025 10:00:00 AM, [address] [place] [address], [address], Progress Notes * Deondre TRUJILLO ADOB:1945 (78 yo M)Acc No.[id number]:02/22/2024 Progress Note Patient:?Deondre Trujillo Provider:?Clau Morel DPM :1945???Age:78 Y???Sex:Male Jose e:02/22/2024 Address:[facility] [address], [id number] Pcp:Elida Siddiqui Subjective: * Chief Complaints: * [...] Morel DPM Date:? Generated for Carmine jack/Alessandra/Yue on:?10/12/2024 07:42 AM EDT History and Physical Notes * [...]
--- OUTSIDE RECORDS SUMMARY | 2024-10-12 07:42 | XMS_ITS ---
Author Organization [facility] Address [address] [place] [address] Care Team Providers Care Er Tech Name Role Phone Elida Siddiqui Primary Care Provider Brody Carmona Unavailable [phone] Clau Morel [phone] Encounters Encounter Location Date Provider Diagnosis [address] [address] 02/22/2024 Clau Morel Plan Of Treatment Next Appt Details Provider Name:Clau isaac, 02/22/2025 10:00:00 AM, [address] [place] [address], [phone], Progress Notes * Deondre TRUJILLO ADOB:1945 (79 yo M)Acc No.[id number]:02/22/2024 Progress Note Patient:?LORIEYesenia Deondre Brittney Provider:?Clau Morel DPM :1945???Age:78 Y???Sex:Male Jose e:02/22/2024 Address:[address] [place] Pcp:Elida Siddiqui Subjective: * Chief Complaints: * [...]
[2024-10-12 11:00] LABS: Alanine Aminotransferase 31 U/L (0-40); Albumin Level 3.9 g/dL (3.5-5.0); Alkaline Phosphatase 63 U/L (39-117); Anion Gap 12 (12-20); Aspartate Amino Transferase 55 U/L (5-37); Bilirubin Total 0.4 mg/dL (0.0-1.0); Blood Urea Nitrogen 22 mg/dL (9-16); Carbon Dioxide 26 mmol/L (22-29); Chloride 109 mmol/L (96-108); Estimated Glomerular Filt Rate 42; Glucose Random 166 mg/dL (60-115); Potassium 4.4 mmol/L (3.3-5.1); Sodium 143 mmol/L (135-145); Total Protein 6.4 g/dL (6.5-8.0)
== END 2024-10-12 07:41 | disposition home or self-care (01) ==
LOC: HO.10HDL 07:40
PROVIDERS: Visit Provider Internal Medicine
DX: I48.0 Paroxysmal atrial fibrillation (principal)
CPT/HCPCS: 36415; 80053

== ENCOUNTER 2024-10-15 15:32 | Outpatient (AMB) | payer MEDICARE, SELFPAY ==
--- OUTSIDE RECORDS SUMMARY | 2024-10-15 15:35 | XMS_ITS ---
Author Organization [facility] Address [address] [place] [address] Care Team Providers Care Film Archivist Name Role Phone Elida Siddiqui Primary Care Provider UnavailBrody Rosales Unavailable [phone] Clau Morel Unavailable [phone] Allergies Allergen (clinical drug ingredient) Drug/Non Drug [...] 024 Encounters Encounter Location Date Provider Diagnosis [facility] [place] [address] [place] [address] 02/22/2024 Clau Morel Other hammer toe(s) (acquired), [...] Reason: Provider Name:Clau isaac, 02/22/2025 10:00:00 AM, [address] [place] [address], [address], Progress Notes * Deondre TRUJILLO ADOB:1945 (78 yo M)Acc No.[id number]:02/22/2024 Progress Note Patient:?Deondre Trujillo Provider:?Clau Morel DPM :1945???Age:78 Y???Sex:Male Ojse e:02/22/2024 Address:[facility] [address], [place] Pcp:Elida Siddiqui Subjective: * Chief Complaints: * [...] Morel DPM Date:? Generated for Carmine jack/Alessandra/Yue on:?10/15/2024 03:35 PM EDT History and Physical Notes * HPI [...]
--- OUTSIDE RECORDS SUMMARY | 2024-10-15 15:35 | XMS_ITS ---
Author Organization [facility] Address [address] [place] [address] Care Team Providers Care Green Pipefitter Name Role Phone Elida Siddiqui Primary Care Provider Brody Carmona Unavailable [phone] Clau Morel [phone] Encounters Encounter Location Date Provider Diagnosis [address] [address] 02/22/2024 Clau Morel Plan Of Treatment Next Appt Details Provider Name:Clau isaac, 02/22/2025 10:00:00 AM, [address] [place] [address], [phone], Progress Notes * Deondre TRUJILLO ADOB:1945 (79 yo M)Acc No.[id number]:02/22/2024 Progress Note Patient:?LORIEYesenia Deondre Brittney Provider:?Clau Morel DPM :1945???Age:78 Y???Sex:Male Jose e:02/22/2024 Address:[address] [place] Pcp:Elida Siddiqui Subjective: * Chief Complaints: * [...]
--- OUTSIDE RECORDS SUMMARY | 2024-10-15 15:35 | XMS_ITS | Patient Health Record ---
Author Organization [facility] Address [address] [place] [address] Care Team Providers Care Installers Mechanical Name Role Phone Elida Siddiqui Primary Care Provider UnavailBrody Rosales Unavailable [phone] Clau Morel Unavailable [phone] Allergies Allergen (clinical drug ingredient) Drug/Non Drug [...] Problem Acquired hammer toe of right foot (67407783202048 05) Other hammer toe(s) (acquired), right foot (M20.41) Active confirmed Problem Type 2 diabetes mellitus with peripheral angiopathy (323917293) Type 2 diabetes mellitus with diabetic peripheral angiopathy without gangrene (E11.51) Active confirmed Problem Acquired hammer toe of left foot (63211656717329 03) Other hammer toe(s) (acquired), left foot (M20.42) Active confirmed Vital Signs Blood pressure diastolic 70 mm Hg 02/22/2024 Height 5 ft 6 in in 02/22/2024 Blood pressure systolic 120 mm Hg 02/22/2024 Weight 185 lbs 02/22/2024 BMI 29.86 kg/m2 02/22/2024 Encounters Encounter Location Date Provider Diagnosis [facility] [address] [address] 02/22/2024 Clau Maria Teresa Other hammer toe(s) [...] Treatment Pending Test Test Name Order Date [id number] NAIL, 6 OR MORE 06/19/2021 [id number] SKIN LESIONS, OVER 4 06/19/19 22 Next Appt Details Provider Name:Clau Brittney isaac, 02/22/2025 10:00:00 AM, [address] [place], [address], Insurance Providers Payer Name Payer Address Payer Phone Subscriber Number Group Number Insured Name Patient Relationship to Insured Coverage Start Date Coverage End Date [facility] [employer] Claims [address] [place] [id number] Deondre Stein Self - patient is the [...]
[2024-10-15 15:36] VITALS: BP 112/58; PULSE 60; O2SAT 96; BMI 28.6
--- NOTE | 2024-10-15 15:36 | MHC.PC.OV ---
Vital Signs 10/15/24 15:36 Height 5 ft 6 in Weight 177 lb BMI 28.6 BP 112/58 L Blood Pressure Location Lt brachial Position Sitting Pulse 60 Pulse Source Pulse Oximeter Pulse Oximetry (%) 96 Oxygen Delivery Method Room Air Intake Visit Reasons: DM Allergies lisinopril Allergy (Unknown, Verified 10/15/24 15:37) Unknown Penicillins [PENICILLINS] Allergy (Unknown, Verified 10/15/24 15:37) UNKNOWN REACTION-CHILDHOOD ALLERGY Medication List - Last Reconciled 10/15/24 by Elida Siddiqui MD amiodarone 200 mg PO DAILY apixaban (Eliquis) 5 mg PO BID 30 days atorvastatin 40 mg PO DAILY [AUTO PAP 6-20 cm H2O humidified AIR As directed] capsaicin 0.1% (Arthritis Pain Relief (capsaicin)) 1 appl topical TID cholecalciferol (vitamin D3) 75 mcg PO MOWEFR@1000 cyanocobalamin (vitamin B-12) 2,500 mcg PO DAILY empagliflozin 25 mg PO DAILY ezetimibe 10 mg PO DAILY fenofibrate 160 mg PO DAILY folic acid 0.4 mg PO DAILY lidocaine-prilocaine 2.5-2.5 % 1 appl topical ONCE 1 day linagliptin (Tradjenta) 5 mg PO DAILY 30 days pregabalin 100 mg PO TID 30 days tamsulosin (Flomax) 0.4 mg PO BEDTIME 30 days Tobacco use date assessed: 07/20/24 Fall risk assessment: No Falls in past year Last assessed Fall Risk: 10/15/24 Dental Screening Dental Screen Date: 07/20/24 FORMERLY [facility] Medical History Dyspnea on exertion Atrial fibrillation Acute heart failure Atrial fibrillation with RVR Cardiomyopathy Cataracts, bilateral Chronic otitis media Peripheral vascular disease Type 2 diabetes mellitus with hyperglycemia Erectile dysfunction Post herpetic neuralgia COPD (chronic obstructive pulmonary disease) Obstructive sleep apnea Rotator cuff tear, left Carotid stenosis Tubular adenoma of colon Hypertension Hypercholesterolemia PVCs (premature ventricular contractions) NICM (nonischemic cardiomyopathy) CAD (coronary artery disease) Surgical History History of cardiac radiofrequency ablation History of colonoscopy History of cataract surgery History of repair of rotator cuff History of cardiac catheterization History of tonsillectomy History of carotid endarterectomy Family History Father H/O ETOH abuse Hypertension Mother Hypertension Brother Diabetes Brother No problems noted. Sister No problems noted. Sister No problems noted. Social History Household Members: None Housing: House Do you presently have visiting nurse or other home services: No Alcohol intake: current Alcohol intake frequency: holidays/special occasions only Alcohol type: beer Comment: no instruments used Patient Tobacco Use Status: Never used Tobacco Tobacco use type: Cigarette e-Cigarette/Vaping Use: Never Used Second Hand Smoke Exposure: No Advance Directives Date on File: 11/17/21 service: No Current occupational status: employed Cognitive needs: No Hearing needs: Yes Vision needs: Yes Questionnaire PHQ-9 Over the last 2 weeks, how often have you been bothered by any of the following problems? 1. Little interest or pleasure in doing things: not at all 2. Feeling down, depressed, or hopeless: not at all 3. Trouble falling or staying asleep, or sleeping too much: not at all 4. Feeling tired or having little energy: several days 5. Poor appetite or overeating: not at all 6. Feeling bad about yourself - or that you are a failure or have let yourself or your family down: not at all 7. Trouble concentrating on things, such as reading the newspaper or watching television: not at all 8. Moving or speaking so slowly that other people could have noticed. Or the opposite - being so fidgety or restless that you have been moving around a lot more than usual: not at all 9. Thoughts that you would be better off or of hurting yourself in some way: not at all Total score: 1 Depression Screening Interpretation: Negative Depression Screening Done: Yes 45289 - PHQ-9 Billing: Yes Source: Developed by Drs. Marcos Phan, Tk Marie and colleagues, with an educational deonte from [employer]. Thrive Questionnaire Date Thrive assessed: 07/20/24 RENETTA-7 AMB Questionnaire RENETTA-7 Date RENETTA - 7 assessed: 07/20/24 Source: Developed by Holley Burton Kurt Kroenke and colleagues, with an educational deonte from [employer]. Physical exam (Primary Care) Vital Signs: Last Vital Signs Pulse 60 10/15/24 15:36 BP 112/58 L 10/15/24 15:36 Pulse Ox 96 10/15/24 15:36 Oxygen Delivery Method Room Air 10/15/24 15:36 BMI result Body Mass Index 28.6 Tobacco/Smoking Status: Tobacco use Status Tobacco use date assessed 07/20/24 10/15/24 15:37 Patient Tobacco Use Status Never used Tobacco 10/15/24 15:37 Tobacco use type Cigarette 10/15/24 15:37 e-Cigarette/Vaping Use Never Used 10/15/24 15:37 PHQ-9: PHQ-9 Score PHQ-9: Total score 1 10/15/24 16:17 Depression Screening Interpretation: Negative Thrive Assessment: Date of Thrive Assessment Date Thrive assessed 07/20/24 10/15/24 15:37 Const General: alert; No acute distress Eyes Conjunctivae: conjunctivae normal Resp Auscultation: clear to auscultation bilaterally Cardio Rate: regular rate Rhythm: regular rhythm GI Inspection: Yes normal to inspection Extrem General: Yes normal to inspection and No edema Coding Level of Care Code Est Pt Level 4 (18829) Complex EM visit Add On G2211 Diagnoses Coronary artery disease involving pokagon coronary artery of [place] heart without angina pectoris I25.10 Associated angina: without angina Coronary Disease-Associated Artery/Lesion type: [place] artery [place] vs. 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 use JITENDRA on CPAP G47.33; Z99.89 Bilateral carotid artery stenosis I65.23 Carotid artery disease type: stenosis PAF (paroxysmal atrial fibrillation) I48.0 Chronic diastolic congestive heart failure I50.32 Heart failure chronicity: chronic Heart failure type: diastolic Stage 3b chronic kidney disease N18.32 Chronic kidney disease stage 3 subtype: stage 3b (GFR 30-44) Alcohol abuse F10.10 Diabetic neuropathy E11.40 Additional Codes PHQ-9 - 72335 - PHQ-9 Billing: Yes ([id number]) Assessment & Plan Assessment & Plan (1) CAD (coronary artery disease): Code(s): I25.10 - Atherosclerotic heart disease of [place] coronary artery without angina pectoris Category: Medical Qualifiers: Associated angina: without angina Coronary Disease-Associated Artery/Lesion type: [place] artery [place] vs. transplanted heart: [place] heart Qualified Code(s): I25.10 - Atherosclerotic heart disease of [place] coronary artery without angina pectoris Plan: Control the cholesterol, weight, blood pressure, diabetes patient on Eliquis 5 mg twice a day (2) Hypertension: Code(s): I10 - Essential (primary) hypertension Category: Medical Qualifiers: Hypertension type: essential hypertension Qualified Code(s): I10 - Essential (primary) hypertension Plan: Continue with blood pressure medication. Decrease salt intake and exercise patient takes Jardiance right now (3) Hypercholesterolemia: Code(s): E78.00 - Pure hypercholesterolemia, unspecified Category: Medical Plan: Avoid fried foods, chicken skin, eggs, butter margarine, pastries and meat. Be it pork or beef they have a lot of cholesterol LDL goal of less than 70 and triglyceride of less than 150 on atorvastatin 40 mg once a day (4) COPD (chronic obstructive pulmonary disease): Comment: PATIENT HAS ONLY BORDERLINE OBSTRUCTIVE AIRWAY DISORDER AND DOES NOT REQUIRE TO USE ANY BRONCHODILATOR INHALERS. Code(s): J44.9 - Chronic obstructive pulmonary disease, unspecified Category: Medical Qualifiers: COPD type: emphysema Emphysema type: unspecified Qualified Code(s): J43.9 - Emphysema, unspecified Plan: Stable (5) Type 2 diabetes mellitus with hyperglycemia: Comment: Dr. Hawthorne Code(s): E11.65 - Type 2 diabetes mellitus with hyperglycemia Category: Medical Qualifiers: Diabetes mellitus longterm insulin use: without longterm use Qualified Code(s): E11.65 - Type 2 diabetes mellitus with hyperglycemia Plan: Decrease the amount of carbohydrate intake, pasta, bread, rice and potatoes are all sugar and that is aside from all the sweet stuff, remember that fruits are good but they are Sweet also. Hemoglobin A1c goal of less than 7.0. Patient presently on Jardiance 25 mg once a day once a day Tradjenta 5 mg once a day (6) JITENDRA on CPAP: Comment: Known case of obstructive sleep apnea since 2017. Has been using CPAP very regularly all this time. REMAINS VERY COMPLIANT, OLD CPAP DEVICE WAS NOT CAPABLE OF TRANSMITTING THE COMPLIANCE DATA. HE HAS THE NEW CPAP MACHINE AND ADVISED TO START USING IT REGULARLY, WE WERE NOT ABLE TO DOWNLOAD THE COMPLIANCE DATA. BUT ACCORDING TO HIM HE USES EVERY NIGHT FOR AT LEAST 6 HOURS PER NIGHT. Code(s): G47.33 - Obstructive sleep apnea (adult) (pediatric); Z99.89 - Dependence on other enabling machines and devices Category: Medical Plan: Continues to use the CPAP more than 4 hours a night and benefits from this (7) Bilateral carotid artery disease: Comment: 2011 - right carotid endarterectomy by Dr. Livingston September 2022 Code(s): I77.9 - Disorder of arteries and arterioles, unspecified Category: Medical Qualifiers: Carotid artery disease type: stenosis Qualified Code(s): I65.23 - Occlusion and stenosis of bilateral carotid arteries Plan: Control the cholesterol, weight, blood pressure, diabetes on anticoagulation (8) PAF (paroxysmal atrial fibrillation): Comment: Status post cardioversion Code(s): I48.0 - Paroxysmal atrial fibrillation Category: Medical Plan: Continue with anticoagulation and on amiodarone (9) Congestive heart failure: Comment: Preserved ejection fraction Code(s): I50.9 - Heart failure, unspecified Category: Medical Qualifiers: Heart failure chronicity: chronic Heart failure type: diastolic Qualified Code(s): I50.32 - Chronic diastolic (congestive) heart failure Plan: Euvolemic presently continue to monitor (10) CKD (chronic kidney disease) stage 3, GFR 30-59 ml/min: Code(s): N18.30 - Chronic kidney disease, stage 3 unspecified Category: Medical Qualifiers: Chronic kidney disease stage 3 subtype: stage 3b (GFR 30-44) Qualified Code(s): N18.32 - Chronic kidney disease, stage 3b Plan: Avoid NSAIDs, keep well hydrated hold any diuretic (11) Alcohol abuse: Code(s): F10.10 - Alcohol abuse, uncomplicated Category: Social Hx Plan: Patient is advised to abstain from alcohol (12) Diabetic neuropathy: Code(s): E11.40 - Type 2 diabetes mellitus with diabetic neuropathy, unspecified Category: Medical Plan History of Present Illness The patient is an 79-year-old male presenting for follow-up on chronic conditions. Past medical evaluations include comprehensive management of diabetes mellitus with treatment involving Jardiance and Tradjenta, while coronary artery disease is managed on Eliquis. Hypertension management includes ongoing medication with a target LDL cholesterol level of less than 70 and triglycerides of less than 150 under atorvastatin. Chronic obstructive pulmonary disease is present, managed with CPAP therapy. Related cardiac conditions include atrial fibrillation and congestive heart failure. The patient's chronic kidney disease remains stable with no recent fluctuations in serum creatinine or GFR readings. He also suffers from chronic low back pain, managed with pregabalin, and engages in follow-ups with various specialists including those for bladder obstruction and Peyronie?s disease. Anemia and mild liver function test elevation are noted in the patient's blood work. The patient maintains regular assessments with ophthalmology and nephrology, confirming no acute retinopathy and stable kidney function. Social health factors include a history of alcohol abuse with recent advice to abstain. Regular medication adherence and management strategies for multiple chronic conditions are being effectively executed. Health Maintenance - Blood pressure target under current antihypertensive regimen - LDL cholesterol management with atorvastatin - Diabetes management targeting hemoglobin A1c less than 7.0 - Sleep apnea effectively managed with CPAP usage - Regular monitoring of liver function tests - Anemia monitoring without recent exacerbations - Bladder health monitoring and management of outlet obstruction - Follow-up with ophthalmology for diabetic retinopathy screening Social History - History of alcohol abuse with current abstinence recommendation - Management of chronic low back pain with pregabalin - Compliance with CPAP therapy for sleep apnea Review of Systems - Cardiovascular: Reports management of coronary artery disease and atrial fibrillation - Respiratory: Reports use of CPAP for obstructive sleep apnea - Hematologic: Reports anemia - Renal: Reports stable chronic kidney disease - Endocrinologic: Reports diabetes management - Musculoskeletal: Reports chronic low back pain Physical Exam Results - Labs: Hemoglobin 13.6, LDL cholesterol 58, Serum creatinine 1.59, GFR 42, Hemoglobin A1c 9.1 - Imaging: Finger X-ray showing no fracture or foreign body - Blood sugar level of 166 Plan 1. 0. Coronary artery disease management involves Eliquis for anticoagulation. Current LDL levels are stable with atorvastatin. For COPD, CPAP usage continues to be beneficial. Chronic kidney disease monitoring will include the scrutiny of serum creatinine and GFR levels; no diuretics are in use at present. Chronic low back pain management remains treated with pregabalin, and bladder health will continue to be a focal area in urologic evaluations. Abstinence from alcohol is encouraged to address liver concerns, and re-evaluation is planned in three months.: Patient was informed and verbally consented to the use of an ambient scribe for clinic note documentation during this visit. Discussion Notes I discussed the management strategies for diabetes mellitus, emphasizing the goal of reducing the hemoglobin A1c to under 7.0 and ensuring adherence to Jardiance and Tradjenta regimens. Coronary artery disease is managed with Eliquis for anticoagulation, while LDL cholesterol targets are met with atorvastatin. COPD management via CPAP continues effectively. For the management of chronic kidney disease, current nephrology strategies include avoiding NSAIDs and maintaining hydration without diuretics. We reviewed the benefits and risks of each treatment plan, considering the patient?s concurrent conditions. I advised ongoing abstinence from alcohol to mitigate hepatic concerns. Regular follow-up appointments are necessary to continue reassessment and refining of these strategies. Patient Instructions - Continue current medications as prescribed - Use CPAP nightly for at least 4 hours - Abstain from alcohol - Follow-up in three months - Expect contact for nutrition consultation - Report any unusual symptoms or health changes promptly Orders: Orders US bladder Today N32.0 - Bladder-neck obstruction Referrals Nutrition/Dietitian Referral E11.65 - Type 2 diabetes mellitus with hyperglycemia
== END 2024-10-15 16:30 | disposition home or self-care (01) ==
LOC: HO.HMCH 15:33
PROVIDERS: PCP Internal Medicine; Visit Provider Internal Medicine
DX: I13.0 Hypertensive heart and chronic kidney disease with heart failure and stage 1 through stage 4 chronic kidney disease, or unspecified chronic kidney disease (principal); E11.65 Type 2 diabetes mellitus with hyperglycemia; N18.32 Chronic kidney disease, stage 3b; I50.32 Chronic diastolic (congestive) heart failure; J43.9 Emphysema, unspecified; I48.0 Paroxysmal atrial fibrillation; E11.40 Type 2 diabetes mellitus with diabetic neuropathy, unspecified; I25.10 Atherosclerotic heart disease of native coronary artery without angina pectoris; E78.00 Pure hypercholesterolemia, unspecified; G47.33 Obstructive sleep apnea (adult) (pediatric); Z99.89 Dependence on other enabling machines and devices; I65.23 Occlusion and stenosis of bilateral carotid arteries

== ENCOUNTER → 2024-10-15 15:32 | Outpatient (BNVA) | payer MEDICARE, SELFPAY | PROVIDERS: PCP Internal Medicine; Visit Provider Internal Medicine | DX: I25.10 Atherosclerotic heart disease of native coronary artery without angina pectoris (principal); I13.0 Hypertensive heart and chronic kidney disease with heart failure and stage 1 through stage 4 chronic kidney disease, or unspecified chronic kidney disease; E11.22 Type 2 diabetes mellitus with diabetic chronic kidney disease; N18.32 Chronic kidney disease, stage 3b; I50.32 Chronic diastolic (congestive) heart failure; E78.00 Pure hypercholesterolemia, unspecified; J43.9 Emphysema, unspecified; E11.65 Type 2 diabetes mellitus with hyperglycemia; G47.33 Obstructive sleep apnea (adult) (pediatric); Z99.89 Dependence on other enabling machines and devices; I65.23 Occlusion and stenosis of bilateral carotid arteries; I48.0 Paroxysmal atrial fibrillation; F10.10 Alcohol abuse, uncomplicated; E11.40 Type 2 diabetes mellitus with diabetic neuropathy, unspecified | CPT/HCPCS: 96127; 99212 ==

== ENCOUNTER 2024-10-31 14:17 | Outpatient (AMB) | payer MEDICARE, SELFPAY ==
--- OUTSIDE RECORDS SUMMARY | 2024-10-31 14:21 | XMS_ITS | Patient Health Record ---
Author Organization [facility] Address [address] [place] [address] Care Team Providers Care Accounts Payable Accountant Name Role Phone Elida Siddiqui Primary Care Provider UnavailBrody Rosales Unavailable [phone] Clau Morel Unavailable [phone] Allergies Allergen (clinical drug ingredient) Drug/Non Drug [...] Problem Acquired hammer toe of right foot ([id number] 05) Other hammer toe(s) (acquired), right foot (M20.41) Active confirmed Problem Type 2 diabetes mellitus with peripheral angiopathy (845852432) Type 2 diabetes mellitus with diabetic peripheral angiopathy without gangrene (E11.51) Active confirmed Problem Acquired hammer toe of left foot ([id number] 03) Other hammer toe(s) (acquired), left foot (M20.42) Active confirmed Vital Signs Blood pressure diastolic 70 mm Hg 02/22/2024 Height 5 ft 6 in in 02/22/2024 Blood pressure systolic 120 mm Hg 02/22/2024 Weight 185 lbs 02/22/2024 BMI 29.86 kg/m2 02/22/2024 Encounters Encounter Location Date Provider Diagnosis [facility] [address] [address] 02/22/2024 Clau Maria Teresa Other hammer toe(s) [...] Treatment Pending Test Test Name Order Date [id number] NAIL, 6 OR MORE 06/19/2021 [id number] SKIN LESIONS, OVER 4 06/19/19 22 Next Appt Details Provider Name:Clau Brittney iasac, 02/22/2025 10:00:00 AM, [address] [place], [address], Insurance Providers Payer Name Payer Address Payer Phone Subscriber Number Group Number Insured Name Patient Relationship to Insured Coverage Start Date Coverage End Date [facility] [employer] Claims [address] [place] [address] [id number] Deondre Stein Self - patient is the [...]
[2024-10-31 14:29] VITALS: BP 110/58; PULSE 57; BMI 28.9
--- NOTE | 2024-10-31 14:29 | A.OFFVIS_ITS ---
Vital Signs 10/31/24 14:29 Height 5 ft 6 in Weight 179 lb 0.246 oz BMI 28.9 BP 110/58 L Blood Pressure Location Lt brachial Position Sitting Pulse 57 Pulse Source Monitor Intake Visit Reasons: 1 yr follow up Intake Note: 1 yr f/up Manager Search Engine Required: No Accompanied by: Self / Same As Patient Allergies lisinopril Allergy (Unknown, Verified 10/15/24 15:37) Unknown Penicillins [PENICILLINS] Allergy (Unknown, Verified 10/15/24 15:37) UNKNOWN REACTION-CHILDHOOD ALLERGY Medication List - Last Reconciled 10/31/24 by Reji Jackson MD amiodarone 200 mg PO DAILY apixaban (Eliquis) 5 mg PO BID 30 days atorvastatin 40 mg PO DAILY [AUTO PAP 6-20 cm H2O humidified AIR As directed] capsaicin 0.1% (Arthritis Pain Relief (capsaicin)) 1 appl topical TID cholecalciferol (vitamin D3) 75 mcg PO MOWEFR@1000 cyanocobalamin (vitamin B-12) 2,500 mcg PO DAILY empagliflozin 25 mg PO DAILY ezetimibe 10 mg PO DAILY fenofibrate 160 mg PO DAILY folic acid 0.4 mg PO DAILY lidocaine-prilocaine 2.5-2.5 % 1 appl topical ONCE 1 day linagliptin (Tradjenta) 5 mg PO DAILY 30 days pregabalin 100 mg PO TID 30 days tamsulosin (Flomax) 0.4 mg PO BEDTIME 30 days HPI Comments Details: Pleasant 79 year gentleman who is here for follow-up. He has known history of coronary artery disease and underwent PCI with rotablation to LAD. He also had right coronary artery PCI. Also previously developed AFib with RVR and cardiomyopathy. He was cardioverted and started on amiodarone and since then has been in sinus rhythm. He is denying any significant symptoms currently. No shortness of breath or chest discomfort. No syncope. He has chronic back pain issues and continues to be in pain and has been using medications and patches. FORMERLY [facility] Medical History Dyspnea on exertion Atrial fibrillation Acute heart failure Atrial fibrillation with RVR Cardiomyopathy Cataracts, bilateral Chronic otitis media Peripheral vascular disease Type 2 diabetes mellitus with hyperglycemia Erectile dysfunction Post herpetic neuralgia COPD (chronic obstructive pulmonary disease) Obstructive sleep apnea Rotator cuff tear, left Carotid stenosis Tubular adenoma of colon Hypertension Hypercholesterolemia PVCs (premature ventricular contractions) NICM (nonischemic cardiomyopathy) CAD (coronary artery disease) Surgical History History of cardiac radiofrequency ablation History of colonoscopy History of cataract surgery History of repair of rotator cuff History of cardiac catheterization History of tonsillectomy History of carotid endarterectomy Family History Father H/O ETOH abuse Hypertension Mother Hypertension Brother Diabetes Brother No problems noted. Sister No problems noted. Sister No problems noted. Social History Household Members: None Housing: House Do you presently have visiting nurse or other home services: No Alcohol intake: current Alcohol intake frequency: holidays/special occasions only Alcohol type: beer Comment: no instruments used Patient Tobacco Use Status: Never used Tobacco Tobacco use type: Cigarette e-Cigarette/Vaping Use: Never Used Second Hand Smoke Exposure: No Advance Directives Date on File: 11/17/21 service: No Current occupational status: employed Cognitive needs: No Hearing needs: Yes Vision needs: Yes Review of Systems Const Denies chills, Denies fatigue, Denies fever(s), Denies frequent falls, Denies weakness, Denies weight gain and Denies weight loss ENT Denies dizziness Card Denies chest pain, Denies leg edema, Denies lightheadedness, Denies palpitations, Denies dyspnea and Denies dyspnea on exertion Resp Denies cough, Denies dyspnea and Denies dyspnea on exertion GI Denies hematochezia Musc Denies abnormal gait, Denies muscle weakness, Denies numbness, Denies radiating pain into limb and Denies tingling Neuro Denies abnormal gait, Denies dizziness, Denies frequent falls, Denies numbness, Denies tingling and Denies weakness Endo Denies fatigue and Denies palpitations Physical Exam Vital Signs: Last Vital Signs Pulse 57 10/31/24 14:29 BP 110/58 L 10/31/24 14:29 BMI result Body Mass Index 28.9 GENERAL APPEARANCE: in no acute distress, pleasant. NECK: no carotid bruit, no jugular venous distention. SKIN: no suspicious lesions, warm and dry. HEART: no murmurs, regular rate and rhythm. Bradycardic. LUNGS: clear to auscultation bilaterally. ABDOMEN: soft, nontender. EXTREMITIES: no edema. PERIPHERAL PULSES: equal. NEUROLOGIC: No gross deficits, AAO X 3 Office Procedures EKG Details: Sinus bradycardia with first degree AV block, leftward axis, RBBB, QTc 480 msec. [id number], Complete Assessment & Plan Assessment & Plan (1) PAF (paroxysmal atrial fibrillation): Comment: Status post cardioversion Code(s): I48.0 - Paroxysmal atrial fibrillation Category: Medical (2) CAD (coronary artery disease): Code(s): I25.10 - Atherosclerotic heart disease of [place] coronary artery without angina pectoris Category: Medical Qualifiers: Coronary Disease-Associated Artery/Lesion type: [place] artery [place] vs. transplanted heart: [place] heart Associated angina: without angina Qualified Code(s): I25.10 - Atherosclerotic heart disease of [place] coronary artery without angina pectoris (3) PVCs (premature ventricular contractions): Code(s): I49.3 - Ventricular premature depolarization Category: Medical Plan Pleasant 79-year-old gentleman who is here for follow-up. He has known history of coronary disease with previous PCI. Denying any chest discomfort shortness of breath. Clinically stable from coronary disease point of view. He also had paroxysmal atrial fibrillation in the past along with cardiomyopathy. He was cardioverted and started on amiodarone and improved. Continues to be on amiodarone at this stage. He previously had PVCs but being on amiodarone these have improved 2. Overall clinically stable. He should have liver testing and thyroid testing every 4 months. Thank you for allowing me to participate in the care of your patient. Please feel free to contact me if you have any questions. Coding Level of Care Code Est Pt Level 4 (75035) Diagnoses PAF (paroxysmal atrial fibrillation) I48.0 Coronary artery disease involving [place] coronary artery of [place] heart without angina pectoris I25.10 Coronary Disease-Associated Artery/Lesion type: [place] artery [place] vs. transplanted heart: [place] heart Associated angina: without angina PVCs (premature ventricular contractions) I49.3 CPT Codes EKG - CPT: 31485-[id number], Complete ([id number])
== END 2024-10-31 15:00 | disposition home or self-care (01) ==
LOC: HO.HCS 14:18
PROVIDERS: PCP Internal Medicine; Visit Provider Internal Medicine Cardiovascular Disease
DX: I48.0 Paroxysmal atrial fibrillation (principal); I25.10 Atherosclerotic heart disease of native coronary artery without angina pectoris; I49.3 Ventricular premature depolarization
CPT/HCPCS: 93010; 99214

== ENCOUNTER → 2024-10-31 14:17 | Outpatient (BNVA) | payer MEDICARE, SELFPAY | PROVIDERS: PCP Internal Medicine; Visit Provider Internal Medicine Cardiovascular Disease | DX: I48.0 Paroxysmal atrial fibrillation (principal); I25.10 Atherosclerotic heart disease of native coronary artery without angina pectoris; I49.3 Ventricular premature depolarization | CPT/HCPCS: 93005; 99212 ==

== ENCOUNTER 2024-11-05 09:36 | Outpatient (REF) | payer MEDICARE, SELFPAY ==
--- NOTE | ~2024-11-05 | US_ITS ---
CLINICAL HISTORY: I65.29 - Occlusion and stenosis of unspecified carotid artery US bilateral carotid duplex Comparison: None Findings: History of right carotid endarterectomy. There is significant plaque within the left common carotid artery and left carotid bulb. Waveforms are normal morphology. Peak systolic velocities: Right CCA: 66.7 cm/s Right ICA: 285 cm/s ICA/CCA ratio: Abnormal Right ECA: Elevated velocities Right vertebral artery flow is antegrade. Left CCA: 121 cm/s Left ICA: 198 cm/s ICA/CCA ratio: Normal Left ECA: Unremarkable Left vertebral artery flow is antegrade. Impression: Greater than 70% stenosis of the right internal carotid artery with the given history of right carotid endarterectomy in 2010 which may indicate restenosis. 50-69% stenosis of the left internal carotid artery. This document has been electronically signed by: Shea Gaffney MD on 11/05/2024 16:07:58
--- OUTSIDE RECORDS SUMMARY | 2024-11-05 10:15 | XMS_ITS | Patient Health Record ---
[facility] Organization [facility] Address [address] [facility] [address] Care Team Providers Care Breaker Off Name Role Phone Elida Siddiqui Primary Care Provider UnavailBrody Rosales Unavailable [phone] Clau Morel Unavailable [phone] Allergies Allergen (clinical drug ingredient) Drug/Non Drug [...] Problem Acquired hammer toe of right foot (16229822766177 05) Other hammer toe(s) (acquired), right foot (M20.41) Active confirmed Problem Type 2 diabetes mellitus with peripheral angiopathy (838599003) Type 2 diabetes mellitus with diabetic peripheral angiopathy without gangrene (E11.51) Active confirmed Problem Acquired hammer toe of left foot (83465509351702 03) Other hammer toe(s) (acquired), left foot (M20.42) Active confirmed Vital Signs Blood pressure diastolic 70 mm Hg 02/22/2024 Height 5 ft 6 in in 02/22/2024 Blood pressure systolic 120 mm Hg 02/22/2024 Weight 185 lbs 02/22/2024 BMI 29.86 kg/m2 02/22/2024 Encounters Encounter Location Date Provider Diagnosis [facility] [address] [address] 02/22/2024 Clau Maria Teresa Other hammer toe(s) [...] Treatment Pending Test Test Name Order Date [id number] NAIL, 6 OR MORE 06/19/2021 [id number] SKIN LESIONS, OVER 4 06/19/19 22 Next Appt Details Provider Name:Clau Brittney isaac, 02/22/2025 10:00:00 AM, [address] [place], [address], Insurance Providers Payer Name Payer Address Payer Phone Subscriber Number Group Number Insured Name Patient Relationship to Insured Coverage Start Date Coverage End Date [facility] [employer] Claims [address] [place] [address] [id number] Deondre Stein Self - patient is the [...]
== END 2024-11-05 09:37 | disposition home or self-care (01) ==
LOC: HO.US 09:36
PROVIDERS: PCP Internal Medicine; Visit Provider Surgery Vascular Surgery
DX: I65.22 Occlusion and stenosis of left carotid artery (principal)
CPT/HCPCS: 93880

== ENCOUNTER → 2024-11-05 09:39 | Outpatient (BNV) | payer MEDICARE, SELFPAY | PROVIDERS: PCP Internal Medicine; Visit Provider Radiology Diagnostic Radiology | DX: I65.22 Occlusion and stenosis of left carotid artery (principal) | CPT/HCPCS: 93880 ==

== ENCOUNTER 2024-11-12 09:13 | Outpatient (AMB) | payer MEDICARE, SELFPAY ==
[2024-11-12 09:31] VITALS: BP 104/48; PULSE 52; O2SAT 94; BMI 28.6
--- NOTE | 2024-11-12 09:31 | A.OFFVIS_ITS ---
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 Required: No Allergies lisinopril Allergy (Unknown, Verified 11/12/24 09:37) Unknown Penicillins [PENICILLINS] Allergy (Unknown, Verified 11/12/24 09:37) UNKNOWN REACTION-CHILDHOOD ALLERGY Medication List - Last Reconciled 11/12/24 by Leelee Willis MD amiodarone 200 mg PO DAILY apixaban (Eliquis) 5 mg PO BID 30 days atorvastatin 40 mg PO DAILY [AUTO PAP 6-20 cm H2O humidified AIR As directed] capsaicin 0.1% (Arthritis Pain Relief (capsaicin)) 1 appl topical TID cholecalciferol (vitamin D3) 75 mcg PO MOWEFR@1000 cyanocobalamin (vitamin B-12) 2,500 mcg PO DAILY empagliflozin 25 mg PO DAILY ezetimibe 10 mg PO DAILY fenofibrate 160 mg PO DAILY folic acid 0.4 mg PO DAILY lidocaine-prilocaine 2.5-2.5 % 1 appl topical ONCE 1 day linagliptin (Tradjenta) 5 mg PO DAILY 30 days pregabalin 100 mg PO TID 30 days tamsulosin (Flomax) 0.4 mg PO BEDTIME 30 days Do you need a note to return to daycare/school/sports/work: No HPI HPI RLD: Details: 79 years old gentleman is here for follow-up for his sleep apnea. He did get the new CPAP device, which he uses very regularly with fullface mask, but even his new model does not transmit the data for compliance. He has to send a chip to the DME provider, So we do not have the compliance report printed yet but he is very alert and states that he does use it every night except on some nights when he just goes to sleep on the couch. He he puts on his CPAP when he goes to sleep around 10:00, and around 04:00 he h as to wake up to take care of his dog so his sleep is about 6-7 hours per night. He is still working part-time. Breathing is okay and his cardiac status remains well controlled. [facility] Medical History Dyspnea on exertion Atrial fibrillation Acute heart failure Atrial fibrillation with RVR Cardiomyopathy Cataracts, bilateral Chronic otitis media Peripheral vascular disease Type 2 diabetes mellitus with hyperglycemia Erectile dysfunction Post herpetic neuralgia COPD (chronic obstructive pulmonary disease) Obstructive sleep apnea Rotator cuff tear, left Carotid stenosis Tubular adenoma of colon Hypertension Hypercholesterolemia PVCs (premature ventricular contractions) NICM (nonischemic cardiomyopathy) CAD (coronary artery disease) Surgical History History of cardiac radiofrequency ablation History of colonoscopy History of cataract surgery History of repair of rotator cuff History of cardiac catheterization History of tonsillectomy History of carotid endarterectomy Family History Father H/O ETOH abuse Hypertension Mother Hypertension Brother Diabetes Brother No problems noted. Sister No problems noted. Sister No problems noted. Social History Household Members: None Housing: House Do you presently have visiting nurse or other home services: No Alcohol intake: current Alcohol intake frequency: holidays/special occasions only Alcohol type: beer Comment: no instruments used Patient Tobacco Use Status: Never used Tobacco Tobacco use type: Cigarette e-Cigarette/Vaping Use: Never Used Second Hand Smoke Exposure: No Advance Directives Date on File: 11/17/21 service: No Current occupational status: employed Cognitive needs: No Hearing needs: Yes Vision needs: Yes Review of Systems Const All systems reviewed & are unremarkable except as noted in HPI and below Eyes Reports no additional complaints ENT Reports no additional complaints Card Denies chest pain, Denies irregular heart rhythm, Reports leg edema (Mild) and Reports dyspnea on exertion (Moderate) Resp Denies cough, Reports dyspnea on exertion (Moderate) and Denies wheezing GI Reports no additional complaints Reports no additional complaints Musc Reports no additional complaints Skin/Breast Reports system reviewed and no additional complaints, except as documented Neuro Reports no additional complaints Psych Reports no additional complaints Endo Reports no additional complaints Eliseo/Lymph Reports no additional complaints Aller/Immun Denies wheezing Physical Exam Vital Signs: Last Vital Signs Pulse 52 11/12/24 09:31 BP 104/48 L 11/12/24 09:31 Pulse Ox 94 11/12/24 09:31 Oxygen Delivery Method Room Air 11/12/24 09:31 BMI result Body Mass Index 28.6 Const General: healthy appearing (Except for being overweight), comfortable, no acute distress, alert and awake Orientation/consciousness: patient oriented x3 HEENT Head: Yes normal to inspection General nose exam: No nasal polyps present and No nasal discharge present Face and sinus: Yes sinuses nontender Mouth: oropharynx normal Throat: Yes posterior oropharynx normal Eyes General: appearance normal, both eyes and all related structures Neck Neck: Yes normal visual inspection, Yes no lymphadenopathy, Yes trachea midline and Yes no JVD Thyroid: Thyroid normal Chest Chest palpation & inspection: normal inspection of the chest, normal palpation of entire chest wall and no tenderness Resp Other: Percussion note resonant. Breath sounds are equal on both sides, slightly diminished over the basilar areas. No wheezes or crepitations are heard. Cardio Palpation: normal PMI Rate: regular rate Rhythm: regular rhythm Heart sounds: no gallops and no murmurs Peripheral pulses: Peripheral pulses 2+ throughout GI Palpation (GI): Soft to palpation, nontender, No hepatosplenomegaly present, no masses and Other GI palpation findings present (Abdomen is moderately pr otuberant.) Auscultation: normal bowel sounds Back/Spine/Pelvis Thoracic/Lumbar Spine: thoracic and lumbar spine normal to inspection Skin General skin exam: no rashes or lesions noted Neuro General: patient oriented x3 and no focal motor deficits Cranial nerves: Yes CN's II-XII intact bilaterally Extrem General: Yes normal to inspection, Yes no calf tenderness and Yes edema (1+ pitting edema of both legs) Psych Appearance: grossly normal and well kempt Speech and movement: Normal speech and movement present Results Reviewed Results Reviewed: Compliance report not available. But as per his statement he uses the CPAP regularly and is benefiting. Assessment & Plan Assessment & Plan (1) COPD (chronic obstructive pulmonary disease): Comment: PATIENT HAS ONLY BORDERLINE OBSTRUCTIVE AIRWAY DISORDER AND DOES NOT REQUIRE TO USE ANY BRONCHODILATOR INHALERS. Code(s): J44.9 - Chronic obstructive pulmonary disease, unspecified Category: Medical Qualifiers: COPD type: emphysema Emphysema type: unspecified Qualified Code(s): J43.9 - Emphysema, unspecified Plan: No need to use any maintenance inhaler. Just albuterol 1 or 2 puffs Q 4-6 hours p.r.n. (2) JITENDRA on CPAP: Comment: Known case of obstructive sleep apnea since 2017. Has been using CPAP very regularly all this time. He does have new CPAP device however this is still not transmitting the data for compliance. He has to send the chip, to DME. According to his statement he uses very regularly and he is benefiting. Code(s): G47.33 - Obstructive sleep apnea (adult) (pediatric); Z99.89 - Dependence on other enabling machines and devices Category: Medical Plan: Advised to keep on using CPAP every night at least for 6 hours per night. Coding Level of Care Code Est Pt Level 3 (04682) Diagnoses Pulmonary emphysema, unspecified emphysema type J43.9 COPD type: emphysema Emphysema type: unspecified JITENDRA on CPAP G47.33; Z99.89
--- OUTSIDE RECORDS SUMMARY | 2024-11-12 09:52 | XMS_ITS | Patient Health Record ---
Author Organization [facility] Address [address] [facility] [place] [address] Care Team Providers Care Relief Salesperson Name Role Phone Elida Siddiqui Primary Care Provider UnavailBrody Rosales Unavailable [phone] Clau Morel Unavailable [phone] Allergies Allergen (clinical drug ingredient) Drug/Non Drug [...] Problem Acquired hammer toe of right foot (53119733311631 05) Other hammer toe(s) (acquired), right foot (M20.41) Active confirmed Problem Type 2 diabetes mellitus with peripheral angiopathy (093900841) Type 2 diabetes mellitus with diabetic peripheral angiopathy without gangrene (E11.51) Active confirmed Problem Acquired hammer toe of left foot (68910141058007 03) Other hammer toe(s) (acquired), left foot (M20.42) Active confirmed Vital Signs Blood pressure diastolic 70 mm Hg 02/22/2024 Height 5 ft 6 in in 02/22/2024 Blood pressure systolic 120 mm Hg 02/22/2024 Weight 185 lbs 02/22/2024 BMI 29.86 kg/m2 02/22/2024 Encounters Encounter Location Date Provider Diagnosis [facility] [address] [address] 02/22/2024 Clau Maria Teresa Other hammer toe(s) [...] Treatment Pending Test Test Name Order Date [id number] NAIL, 6 OR MORE 06/19/2021 [id number] SKIN LESIONS, OVER 4 06/19/19 22 Next Appt Details Provider Name:Clau Brittney isaac, 02/22/2025 10:00:00 AM, [address] [place], [address], Insurance Providers Payer Name Payer Address Payer Phone Subscriber Number Group Number Insured Name Patient Relationship to Insured Coverage Start Date Coverage End Date [facility] [employer] Claims [address] [place] [address] [id number] Deondre Stein Self - patient is the [...]
== END 2024-11-12 09:48 | disposition home or self-care (01) ==
LOC: HO.HPS 09:14
PROVIDERS: PCP Internal Medicine; Visit Provider Internal Medicine
DX: J43.9 Emphysema, unspecified (principal); G47.33 Obstructive sleep apnea (adult) (pediatric); Z99.89 Dependence on other enabling machines and devices
CPT/HCPCS: 99213

== ENCOUNTER → 2024-11-12 09:13 | Outpatient (BNVA) | payer MEDICARE, SELFPAY | PROVIDERS: PCP Internal Medicine; Visit Provider Internal Medicine | DX: J43.9 Emphysema, unspecified (principal); G47.33 Obstructive sleep apnea (adult) (pediatric); Z99.89 Dependence on other enabling machines and devices | CPT/HCPCS: 99212 ==

== ENCOUNTER 2024-11-14 08:06 | Outpatient (REF) | payer SELFPAY ==
--- OUTSIDE RECORDS SUMMARY | 2024-11-14 08:18 | XMS_ITS | Patient Health Record ---
Author Organization [facility] Address [address] [facility] [place] [address] Care Team Providers Care Cracking Machine Operator Name Role Phone Elida Siddiqui Primary Care Provider UnavailBrody Rosales Unavailable [phone] Clau Morel Unavailable [phone] Allergies Allergen (clinical drug ingredient) Drug/Non Drug [...] Problem Acquired hammer toe of right foot (07684850875518 05) Other hammer toe(s) (acquired), right foot (M20.41) Active confirmed Problem Type 2 diabetes mellitus with peripheral angiopathy (905384850) Type 2 diabetes mellitus with diabetic peripheral angiopathy without gangrene (E11.51) Active confirmed Problem Acquired hammer toe of left foot (39141981210748 03) Other hammer toe(s) (acquired), left foot (M20.42) Active confirmed Vital Signs Blood pressure diastolic 70 mm Hg 02/22/2024 Height 5 ft 6 in in 02/22/2024 Blood pressure systolic 120 mm Hg 02/22/2024 Weight 185 lbs 02/22/2024 BMI 29.86 kg/m2 02/22/2024 Encounters Encounter Location Date Provider Diagnosis [facility] [address] [address] 02/22/2024 Clau Maria Teresa Other hammer toe(s) [...] Treatment Pending Test Test Name Order Date [id number] NAIL, 6 OR MORE 06/19/2021 [id number] SKIN LESIONS, OVER 4 06/19/19 22 Next Appt Details Provider Name:Clau Brittney isaac, 02/22/2025 10:00:00 AM, [address] [place], [address], Insurance Providers Payer Name Payer Address Payer Phone Subscriber Number Group Number Insured Name Patient Relationship to Insured Coverage Start Date Coverage End Date [facility] [employer] Claims [address] [place] [address] [id number] Deondre Stein Self - patient is the [...]
== END 2024-11-14 08:07 | disposition home or self-care (01) ==
LOC: HO.HAP 08:06
PROVIDERS: Visit Provider Internal Medicine
DX: Z46.1 Encounter for fitting and adjustment of hearing aid (principal); H69.93 Unspecified Eustachian tube disorder, bilateral
CPT/HCPCS: V5267

== ENCOUNTER 2024-11-19 14:06 | Outpatient (REF) | payer SELFPAY ==
--- OUTSIDE RECORDS SUMMARY | 2024-11-19 15:41 | XMS_ITS | Patient Health Record ---
Author Organization [facility] Address [address] [place] [address] Care Team Providers Care Commissioning Engineer Name Role Phone Elida Siddiqui Primary Care Provider UnavailBrody Rosales Unavailable [phone] Clau Morel Unavailable [phone] Allergies Allergen (clinical drug ingredient) Drug/Non Drug [...] Problem Acquired hammer toe of right foot (93201719455572 05) Other hammer toe(s) (acquired), right foot (M20.41) Active confirmed Problem Type 2 diabetes mellitus with peripheral angiopathy (388178002) Type 2 diabetes mellitus with diabetic peripheral angiopathy without gangrene (E11.51) Active confirmed Problem Acquired hammer toe of left foot (85065133332549 03) Other hammer toe(s) (acquired), left foot (M20.42) Active confirmed Vital Signs Blood pressure diastolic 70 mm Hg 02/22/2024 Height 5 ft 6 in in 02/22/2024 Blood pressure systolic 120 mm Hg 02/22/2024 Weight 185 lbs 02/22/2024 BMI 29.86 kg/m2 02/22/2024 Encounters Encounter Location Date Provider Diagnosis [facility] [address] [address] 02/22/2024 Clau Maria Teresa Other hammer toe(s) [...] Treatment Pending Test Test Name Order Date [id number] NAIL, 6 OR MORE 06/19/2021 [id number] SKIN LESIONS, OVER 4 06/19/19 22 Next Appt Details Provider Name:Clau Brittney isaac, 02/22/2025 10:00:00 AM, [address] [place], [address], Insurance Providers Payer Name Payer Address Payer Phone Subscriber Number Group Number Insured Name Patient Relationship to Insured Coverage Start Date Coverage End Date [facility] [employer] Claims [address] [place] [address] [id number] Deondre Stein Self - patient is the [...]
== END 2024-11-19 14:07 | disposition home or self-care (01) ==
LOC: HO.US 14:06
PROVIDERS: PCP Internal Medicine; Visit Provider Internal Medicine
DX: Z13.89 Encounter for screening for other disorder (principal)

== ENCOUNTER 2024-11-26 08:48 | Outpatient (AMB) | payer MEDICARE, SELFPAY ==
--- OUTSIDE RECORDS SUMMARY | 2024-11-26 08:59 | XMS_ITS | Patient Health Record ---
Author Organization [facility] Address [address] [facility] [place] [address] Care Team Providers Care Tool Crib Attendant Name Role Phone Elida Siddiqui Primary Care Provider UnavailBrody Rosales Unavailable [phone] Clau Morel Unavailable [phone] Allergies Allergen (clinical drug ingredient) Drug/Non Drug [...] MG 1 tablet Orally O nce a day; Duration: 30 day(s) Not-Dar ing Actos 15 MG 1 tablet Orally Once a day; Duration: 30 day(s) Not-Dar ing Pregabalin 50 MG 1 capsule Orally Twi ce a day Not-Taking Janumet 50-500 MG 1 tablet with meals Orally Twice a day; Duration: 30 day(s) Not-Taking Folic Acid 1 MG 1 tablet Orally Once a day Active Lipitor 10 MG 1 tablet Orally Once a day; Duration: 30 day(s) Not-Dar ing Diovan 40 MG 3 tablets Orally Twi ce a day; Duration: 30 day(s) Not-Dar ing eliquis 5 mg Active Ciclopirox Olamine 0.77 % 1 application Externally Twice a day; Duration: 30 days Not-Taking Jardiance 25 MG 1 tablet Orally Once a day Active Extra Depth Orthopedic Shoes (1 Pair) with Customized Heat Molded Multidensity Innersoles (3 Pair) as directed Dx: NIDDM/PVD (E11.59), Hammertoe Foot Deformity (M20.41,M20.42), Preulcerative Skin Lesion(s) (L85.1) 06/19/2021 Active Tradjenta 5 MG 1 tablet Orally Once a day Active Vitamin D 1000 UNIT 1 capsule Orally Onc e a day; Duration: 30 day(s) Active Extra Depth Orthopedic Shoes, (1) Pair With (3) Pair Custom Heat Molded Multidensity Innersoles Dx: NIDDM/PVD(E11.51), Hammertoe Foot Deformity(M20.41,M20.42) , Preulcerative Skin Lesion(s)(L85.1) Wear Daily; Duration: 365 days 02/22/2024 Active Ezetimibe 10 MG 1 tablet Orally Once a day Active Vitamin B12 Active Aspirin 81 MG 1 tablet Orally Once a day; Duration: 30 day(s) Not-Dar ing Fenofibrate 160 MG 1 tablet Orally Once a day; Duration: 30 day(s) Active Clopidogrel Bisulfate 75 MG 1 tablet Orally Once a day; Duration: 30 day(s) Not-Dar ing Simvastatin 40 MG 1 tablet in the even ing Orally Once a day; Duration: 30 day(s) Not-Taking Atorvastatin Calcium 40 MG 1 tablet Orally Once a day; Duration: 30 day(s) Active metFORMIN HCl 1000 MG 1 tablet with a me al Orally Once a day; Duration: 30 day(s) Not-Taking amLODIPine Besylate 5 MG 1 tablet Orally Once a day; Duration: 30 day(s) Active Extra Depth Orthopedic Shoes (1 Pair) with Customized Heat Molded Multidensity Innersoles (3 Pair) as directed Dx: NIDDM (E11.9), Hammertoe Foot Deformity (M20.41,M20.42), Preulcerative Skin Lesion(s) (L85.1) 02/16/2023 Active Immunizations Vaccine Route Administration Date Status Comme nts COVID-19 [employer]NTRight Hemisphere Vaccine Unknown 03/16/2021 Administered 1st 07/11/20 2nd [...] Problem Acquired hammer toe of right foot (435369863656 9105) Other hammer toe(s) (acquired), right foot (M20.41) Active confirmed Problem Type 2 diabetes mellitus with diabetic peripheral angiopathy without gangrene (E11.51) Active confirmed Problem Acquired hammer toe of left foot (773886679016 9103) Other hammer toe(s) (acquired), left foot (M20.42) Active confirmed Vital Signs Blood pressure diastolic 70 mm Hg 02/22/2024 Height 5 ft 6 in in 02/22/2024 Blood pressure systolic 120 mm Hg 02/22/2024 Weight 185 lbs 02/22/2024 BMI 29.86 kg/m2 02/22/2024 Encounters Encounter Location Date Provider Diagnosis [facility] [address] [address] 02/22/2024 Clau Morel Other hammer toe(s) (acquired), [...] Treatment Pending Test Test Name Order Date [id number] NAIL, 6 OR MORE 06/19/2021 [id number] SKIN LESIONS, OVER 4 06/19/19 22 Next Appt Details Provider Name:Clau Brittney isaac, 02/22/2025 10:00:00 AM, [address] [place] [address], [address], Insurance Providers Payer Name Payer Address Payer Phone Subscriber Number Group Number Insured Name Patient Relationship to Insured Coverage Start Date Coverage End Date [facility] SCO Claims [address] [place] [address] [phone] [id number] Deondre Stein Self - patient is the [...]
--- NOTE | 2024-11-26 09:14 | A.OFFVIS_ITS ---
VS Expanded 11/26/24 09:15 Height 5 ft 6 in Weight 177 lb 14.609 oz BMI 28.7 Intake Visit Reasons: DM Allergies lisinopril Allergy (Unknown, Verified 11/12/24 09:37) Unknown Penicillins (PENICILLINS) Allergy (Unknown, Verified 11/12/24 09:37) UNKNOWN REACTION-CHILDHOOD ALLERGY Nutrition Presentation Details: Pt presents for MNT for T2DM Pt reports, passed about a yr ago and since then his diet routine has changed, participating on fast food meals or foods that take little preparation. Typical meal Breakst out (waffles/pancakes snack crackers and cheese dinner : potato with butter, glass of milk food frequency fruits: 2/d ve/d milk 2 /d fish: 0-1/wk fried foods 3-4 x/wk pastries 0-1/d fluids: water/milk physical activity : ADL etoh/smoking--- BS Monitoring Most Recent Diabetes Results: Creatinine, (0.5-1.4) 1.59 mg/dL H 10/12/24 BUN, (9-16) 22 mg/dL H 10/12/24 Sodium, (135-145) 143 mmol/L 10/12/24 Potassium, (3.3-5.1) 4.4 mmol/L 10/12/24 Chloride, (96-108) 109 mmol/L H 10/12/24 Carbon Dioxide, (22-29) 26 mmol/L 10/12/24 Calcium, (8.4-10.2) 9.0 mg/dL 10/12/24 AST, (5-37) 55 U/L H 10/12/24 ALT, (0-40) 31 U/L 10/12/24 Total Protein, (6.5-8.0) 6.4 g/dL L 10/12/24 Albumin, (3.5-5.0) 3.9 g/dL 10/12/24 BUD-Gjwchhq-Lw.Jeor Equation Height: 5 ft 6 in Weight: 178 lb Resting Metabolic Rate: 1465.74 Calculated Activity Level: Mild Activity Calories Needed to Maintain Weight: 2015.39 Diagnosis Nutrition problem #1: food nutri know defi As related to (etiology) #1: diagnosis As evidenced by (sign/symptom) #1: knowledge deficit of diet [facility] Medical History Dyspnea on exertion Atrial fibrillation Acute heart failure Atrial fibrillation with RVR Cardiomyopathy Cataracts, bilateral Chronic otitis media Peripheral vascular disease Type 2 diabetes mellitus with hyperglycemia Erectile dysfunction Post herpetic neuralgia COPD (chronic obstructive pulmonary disease) Obstructive sleep apnea Rotator cuff tear, left Carotid stenosis Tubular adenoma of colon Hypertension Hypercholesterolemia PVCs (premature ventricular contractions) NICM (nonischemic cardiomyopathy) CAD (coronary artery disease) Surgical History History of cardiac radiofrequency ablation History of colonoscopy History of cataract surgery History of repair of rotator cuff History of cardiac catheterization History of tonsillectomy History of carotid endarterectomy Family History Father H/O ETOH abuse Hypertension Mother Hypertension Brother Diabetes Brother No problems noted. Sister No problems noted. Sister No problems noted. Social History Household Members: None Housing: House Do you presently have visiting nurse or other home services: No Alcohol intake: current Alcohol intake frequency: holidays/special occasions only Alcohol type: beer Comment: no instruments used Patient Tobacco Use Status: Never used Tobacco Tobacco use type: Cigarette e-Cigarette/Vaping Use: Never Used Second Hand Smoke Exposure: No Advance Directives Date on File: 11/17/21 service: No Current occupational status: employed Cognitive needs: No Hearing needs: Yes Vision needs: Yes Assessment & Plan Assessment & Plan (1) Type 2 diabetes mellitus with hyperglycemia: Code(s): E11.65 - Type 2 diabetes mellitus with hyperglycemia Category: Medical Qualifiers: Diabetes mellitus longterm insulin use: without councillor [employer] land [employer] use Qualified Code(s): E11.65 - Type 2 diabetes mellitus with hyperglycemia Plan: Wt: 80 Kg ( 11/21 ) Est kcal needs as per MSJ: 2000 (40% carb, 30% protein/fat) Est fluid needs as per 25-30 ml/d: 2400 Est prot per day as per 1 g/kg bw: 80 Recommend fiber intake : 8-10 g per day and gradually increase to 25-28 g per day for women and 35-38 g for men or as tolerated Recommend sodium intake per day : l less than 2300 mg Educated patient on: ( R = reviewed V = verbalizes understanding N/R = needs review N/A = not applicable * Food sources of carbohydrate, adequate serving sizes and its role in various health conditions: R V N/R * Differences between complex carbohydrates a simple carbohydrates, role of fiber in diet: R * Lean protein sources of foods: R V NR * Differences between types of fats and role in diet (mono on saturated fat fatty acids, saturated fatty acids, trans fats): R V N/R * Food sources of sodium in salt and healthy modifications for heart health in kidney health: R V R/V * Vitamins and minerals: R V N/R * Healthy plate method concept: R * Physical activity: Benefits a precaution: R V N/R * Hypoglycemia protocol (rule of 15): R V N/R * Dietary prevention of Hyperglycemia: R Patient Instructions: Work on reducing on fried starches and choose baked, steamed starches instead Balance the meals with protein (example baked potato and chicken with green beans, sandwich with egg salad on whole wheat bread) see healthy plate meal ideas Coding Level of Care Code Nutr Indiv Intake (50857) Diagnoses Type 2 diabetes mellitus with hyperglycemia, without long-term current use of insulin E11.65 Diabetes mellitus longterm insulin use: without longterm use Time Spent (min) 30
[2024-11-26 09:15] VITALS: BMI 28.7
[2024-11-26 10:16] VITALS: BMI 28.7
== END 2024-11-26 09:47 | disposition home or self-care (01) ==
LOC: HO.ENCR 08:48
PROVIDERS: PCP Internal Medicine; Visit Provider Dietitian, Registered
DX: E11.65 Type 2 diabetes mellitus with hyperglycemia (principal)

== ENCOUNTER → 2024-11-26 08:48 | Outpatient (BNVA) | payer MEDICARE, SELFPAY | PROVIDERS: PCP Internal Medicine; Visit Provider Dietitian, Registered | DX: E11.65 Type 2 diabetes mellitus with hyperglycemia (principal) | CPT/HCPCS: 97802 ==

== ENCOUNTER 2024-12-07 12:20 | Outpatient (REF) | payer MEDICARE, SELFPAY ==
--- OUTSIDE RECORDS SUMMARY | 2024-12-07 12:30 | XMS_ITS | Patient Health Record ---
Author Organization [facility] Address [address] [place] [address] Care Team Providers Care Gas Transfer Operator Name Role Phone Elida Siddiqui MD Primary Care Provider Marcos Glasgow [phone] Allergies Allergen (clinical drug ingredient) Drug/Non Drug Allergy documented on EMR Reaction Allergy Type Onset Date Status PCN (uncoded) Unknown Allergy Active Reason For Referral No Information Medications Medication SIG (Take, Route, Frequency, Duration) Notes Start Date End Date Status Pioglitazone HCl 30 MG 1 tablet Orally O nce a day Active metFORMIN HCl 1000 MG 1 tablet with meal s Orally Twice a day Active Fenofibrate 160 MG 1 tablet Orally Once a day Active Losartan Potassium 25 MG 1 tablet Orally Once a day Active Gabapentin 100 MG 1 capsule Orally Onc e a day Active Atorvastatin Calcium 40 MG 1 tablet Oral ly Once a day Active Aspir-81 81 MG 1 tablet Orally Once a day Active Folic Acid 400 MCG 1 tablet Orally Once a day Active Vitamin D3 5000 UNIT/ML 0.1 ml Orally Once a day Active Vitamin E 1000 UNIT 1 capsule Orally Onc e a day Active Immunizations Vaccine Route Administration Date Status Comme nts Flu vaccine no Preserv 3 and > Unknown 03/22/2017 Admin istered Problems Problem Type SNOMED Code ICD Code Onset Dates Problem Status W/U Status Risk Notes Problem 002959287 Encounter for screening for malignant neoplasm of colon (Z12.11) Active confirmed Problem 875205051 History of adenomatous polyp of colon (Z86.010) Active confirmed Problem 555630581 Long-term use of aspirin therapy (Z79.82) Active confirmed Plan Of Treatment Future Test Test Name Order Date COLONOSCOPY 12/14/2011 COLONOSCOPY 06/01/2017 Insurance Providers Payer Name Payer Address Payer Phone Subscriber Number Group Number Insured Name Patient Relationship to Insured Coverage Start Date Coverage End Date MEDICARE OF [place] [address] [place] [id number] JUAN TRUJILLO Self - patient is the insured [employer] [address] [place]IG [phone] [id number] GESJazmín JUAN Self - patient is the insured Medical (General) History Medical History History ICD Code NIDDM HTN Hyperlipidemia Denies SD,CVA,Lung disease,renal disease Shingles on the abdominal wall in and 04/2018 Colonoscopy in 2004 with 2 t ubular adenomas removed; Colonoscopy in 12/2011--small hyperplastic polyp, diverticulosis, and internal hemorrhoids Surgical History Surgery Date(Month/Year) Ruptured biceps on right Ear surgery Right carotid endarterectomy in 2008 Rotator cuff tear repair on right arm
--- OUTSIDE RECORDS SUMMARY | 2024-12-07 12:30 | XMS_ITS | Patient Health Record ---
[facility] Address [address] [place] [address] Care Team Providers Care Senior Solutions Workflow Consultant Name Role Phone Elida Siddiqui Primary Care Provider UnavailBrody Rosales Unavailable [phone] Clau oMrel Unavailable [phone] Allergies Allergen (clinical drug ingredient) Drug/Non Drug Allergy documented on EMR Reaction Allergy Type Onset Date Status Penicillin Unknown Drug Allergy Active lisinopril Lisinopril Unknown Drug Allergy Activ e Reason For Referral No Information Medications Medication [...] Problem Acquired hammer toe of right foot (288155479746 9105) Other hammer toe(s) (acquired), right foot (M20.41) Active confirmed Problem Type 2 diabetes mellitus with diabetic peripheral angiopathy without gangrene (E11.51) Active confirmed Problem Acquired hammer toe of left foot (766582306981 9103) Other hammer toe(s) (acquired), left foot (M20.42) Active confirmed Vital Signs Blood pressure diastolic 70 mm Hg 02/22/2024 Height 5 ft 6 in in 02/22/2024 Blood pressure systolic 120 mm Hg 02/22/2024 Weight 185 lbs 02/22/2024 BMI 29.86 kg/m2 02/22/2024 Encounters Encounter Location Date Provider Diagnosis [facility] [address] [address] 02/22/2024 Clau Morel Other hammer toe(s) (acquired), [...] Treatment Pending Test Test Name Order Date [id number] NAIL, 6 OR MORE 06/19/2021 [id number] SKIN LESIONS, OVER 4 06/19/19 Next Appt Details Provider Name:Clau Isaac Angelica isaac, 02/22/2025 10:00:00 AM, [address] [place], [address], Insurance Providers Payer Name Payer Address Payer Phone Subscriber Number Group Number Insured Name Patient Relationship to Insured Coverage Start Date Coverage End Date [facility] [employer] Claims [address] [place] [address] [phone] [id number] Deondre Stein Self - patient is the [...]
== END 2024-12-07 12:21 | disposition home or self-care (01) ==
LOC: HO.SH 12:20
PROVIDERS: Visit Provider Internal Medicine
DX: Z01.118 Encounter for examination of ears and hearing with other abnormal findings (principal); H90.6 Mixed conductive and sensorineural hearing loss, bilateral
CPT/HCPCS: 92557

== ENCOUNTER 2024-12-07 13:16 | Outpatient (REF) | payer SELFPAY ==
--- NOTE | 2024-12-10 10:01 | MHC.AU.HA3 ---
Hearing Instrument Follow-Up- Binaural Date of Visit: 12/07/24 Right Ear: Make, Model, Color, Serial Number: Oticon Real 3 [employer] R [id number] Employee Relations Administrator Repair Warranty: 01/21/27 Employee Relations Administrator Loss and Damage Warranty: 01/21/27 [facility] Service Plan: n/a Battery Size: Rechargeable Clean Rice Grader And Reel Tender/Slim Tube: 2 100 Earmold/Dome/CShell/SlimTip:8mm power Type of Wax Guard: minifit prowax Dispensed By: Pollen Date of Fitting: August 2023 Left Ear: Make, Model, Color, Serial Number: Oticon Real 3 [employer] [id number] Employee Relations Administrator Repair Warranty: 01/21/27 Employee Relations Administrator Loss and Damage Warranty: 01/21/27 [facility] Service Plan: n/a Battery Size: Rechargeable Clean Rice Grader And Reel Tender/Slim Tube: 2 100 Earmold/Dome/CShell/SlimTip: 8mm power Type of Wax Guard: minifit prowax Dispensed By: Pollen Date of Fitting: August 2023 Follow-Up Summary: Deondre reports he had to go to [place] last year to get new hearing aids that his insurance would pay for. Reports they work okay but he wishes the background noise reduction was stronger. Notes right rn manager doesn't sit as far in his ear as the left. Cleaned and checked aids, significant wax build up in wax guards. Replaced wax guards, domes. Ran through dehumidifier. Checked and stored settings. Did not make adjustments. Noise management is already maxed out. Hearing is relatively stable and Deondre denies any feeling of need for gain change. Discussed fit, advised custom shell options available as he had c-shells in the past. He reports the dome is fine, it doesn't fall out, doesn't want to change at this time. Recommendations: Recommendations: Hearing instrument follow-up or maintenance as needed. Diagnosis Code(s): Primary Diagnosis: H90.6 Mixed Hearing Loss, Bilateral Signature: Provider: Sahil Perez, [facility]
== END 2024-12-07 13:17 | disposition home or self-care (01) ==
LOC: HO.SH 13:16
PROVIDERS: Visit Provider Internal Medicine
DX: Z46.1 Encounter for fitting and adjustment of hearing aid (principal)
CPT/HCPCS: 92593

== ENCOUNTER 2024-12-10 10:43 | Outpatient (REF) | payer MEDICARE, SELFPAY ==
--- NOTE | ~2024-12-10 | US_ITS ---
CLINICAL HISTORY: N32.0 - Bladder-neck obstruction US URINARY BLADDER Comparison: None Findings: The urinary bladder is smooth in outline except for a small diverticulum. Prevoid volume: 176 mLPostvoid volume: 27 mL Ureteral jets are visualized bilaterally. IMPRESSION: 1. Unremarkable urinary bladder. 2. No significant postvoid residual. This document has been electronically signed by: Mya Ibarra DO on 12/10/2024 15:18:54
== END 2024-12-10 10:44 | disposition home or self-care (01) ==
LOC: HO.US 10:43
PROVIDERS: PCP Internal Medicine; Visit Provider Internal Medicine
DX: Z00.00 Encounter for general adult medical examination without abnormal findings (principal); N32.0 Bladder-neck obstruction; E11.65 Type 2 diabetes mellitus with hyperglycemia; I13.0 Hypertensive heart and chronic kidney disease with heart failure and stage 1 through stage 4 chronic kidney disease, or unspecified chronic kidney disease; E11.22 Type 2 diabetes mellitus with diabetic chronic kidney disease; I50.32 Chronic diastolic (congestive) heart failure; N18.32 Chronic kidney disease, stage 3b; I25.10 Atherosclerotic heart disease of native coronary artery without angina pectoris; I48.0 Paroxysmal atrial fibrillation; I65.23 Occlusion and stenosis of bilateral carotid arteries; H66.90 Otitis media, unspecified, unspecified ear; B02.29 Other postherpetic nervous system involvement; J43.9 Emphysema, unspecified; G47.33 Obstructive sleep apnea (adult) (pediatric); D64.9 Anemia, unspecified; R79.89 Other specified abnormal findings of blood chemistry; E11.40 Type 2 diabetes mellitus with diabetic neuropathy, unspecified; E78.00 Pure hypercholesterolemia, unspecified; Z79.84 Long term (current) use of oral hypoglycemic drugs; Z79.01 Long term (current) use of anticoagulants; Z79.899 Other long term (current) drug therapy; Z99.89 Dependence on other enabling machines and devices; Z23 Encounter for immunization; Z72.0 Tobacco use
CPT/HCPCS: 76857; 83036; 90471; 90714; 96127

== ENCOUNTER → 2024-12-10 10:47 | Outpatient (BNV) | payer SELFPAY | PROVIDERS: PCP Internal Medicine; Visit Provider Radiology Diagnostic Radiology | DX: N32.0 Bladder-neck obstruction (principal) | CPT/HCPCS: 76857 ==

== ENCOUNTER 2024-12-10 13:32 | Outpatient (AMB) | payer MEDICARE, SELFPAY ==
--- NOTE | 2024-12-10 14:03 | A.OFFVIS_ITS ---
Intake Vital Signs 12/10/24 14:05 Height 5 ft 6 in Weight 174 lb 4 oz BMI 28.1 BP 96/50 L Blood Pressure Location Rt brachial Position Sitting Pulse 64 Pulse Source Pulse Oximeter Pulse Oximetry (%) 92 Oxygen Delivery Method Room Air Intake Visit Reasons: AWV G0438/ Annual P.E Blind Teacher Required: No Accompanied by: Self / Same As Patient Allergies lisinopril Allergy (Unknown, Verified 12/10/24 14:10) Unknown Penicillins (PENICILLINS) Allergy (Unknown, Verified 12/10/24 14:10) UNKNOWN REACTION-CHILDHOOD ALLERGY Medication List - Last Reconciled 12/10/24 by Elida Siddiqui MD amiodarone 200 mg PO DAILY apixaban (Eliquis) 5 mg PO BID 30 days atorvastatin 40 mg PO DAILY [AUTO PAP 6-20 cm H2O humidified AIR As directed] capsaicin 0.1% (Arthritis Pain Relief (capsaicin)) 1 appl topical TID cholecalciferol (vitamin D3) 75 mcg PO MOWEFR@1000 cyanocobalamin (vitamin B-12) 2,500 mcg PO DAILY empagliflozin 25 mg PO DAILY ezetimibe 10 mg PO DAILY fenofibrate 160 mg PO DAILY folic acid 0.4 mg PO DAILY lidocaine-prilocaine 2.5-2.5 % 1 appl topical ONCE 1 day linagliptin (Tradjenta) 5 mg PO DAILY 30 days pregabalin 100 mg PO TID 30 days tamsulosin (Flomax) 0.4 mg PO BEDTIME 30 days HPI AWV G0438/ Annual P.E HPI Details cardiology Dr. Jackson urology Dr. Vasquez, Ophthal- Dr. Hawthorne, Pulmo Dr. Willis, Pain management [facility] Pain management. getting dizzy, [facility] Medical History Dyspnea on exertion Atrial fibrillation Acute heart failure Atrial fibrillation with RVR Cardiomyopathy Cataracts, bilateral Chronic otitis media Peripheral vascular disease Type 2 diabetes mellitus with hyperglycemia Erectile dysfunction Post herpetic neuralgia COPD (chronic obstructive pulmonary disease) Obstructive sleep apnea Rotator cuff tear, left Carotid stenosis Tubular adenoma of colon Hypertension Hypercholesterolemia PVCs (premature ventricular contractions) NICM (nonischemic cardiomyopathy) CAD (coronary artery disease) Surgical History History of cardiac radiofrequency ablation History of colonoscopy History of cataract surgery History of repair of rotator cuff History of cardiac catheterization History of tonsillectomy History of carotid endarterectomy Family History Father H/O ETOH abuse Hypertension Mother Hypertension Brother Diabetes Brother No problems noted. Sister No problems noted. Sister No problems noted. Social History (Updated 12/10/24 @ 14:23 by Elida Siddiqui MD) Household Members: None Housing: House Do you presently have visiting nurse or other home services: No Alcohol intake: current Alcohol intake frequency: holidays/special occasions only Alcohol type: beer Comment: no instruments used. alcohol 2-3 x a week -shot Patient Tobacco Use Status: Never used Tobacco Tobacco use type: Cigarette e-Cigarette/Vaping Use: Never Used Second Hand Smoke Exposure: No Advance Directives Date on File: 11/17/21 service: No Current occupational status: employed Cognitive needs: No Hearing needs: Yes Vision needs: Yes Questionnaire Medicare Wellness Checkup What is your age?: 79 or older What gender do you identify with?: male During the past 4 weeks, how much have you been bothered by emotional problems such as feeling anxious, depressed, irritable, sad or downhearted, and blue?: slightly During the past 4 weeks, has your physical & emotional health limited your social activities with family, friends, neighbors, or groups?: not at all During the past 4 weeks, how much bodily pain have you generally had?: very mild pain During the past 4 weeks, was someone available to help you if you needed & wanted help?: yes, as much as I wanted During the past 4 weeks, what was the hardest physical activity you could do for at least 2 minutes?: moderate Can you get to places out of walking distance without help? (For eg., can you travel alone on buses, taxis or drive your car?): Yes Can you go shopping for groceries or clothes without someone's help?: Yes Can you prepare your own meals?: Yes Can you do your housework without help?: No Because of any health problems, do you need the help of another person with your personal care needs such as eating, bathing, dressing or getting around the house?: No Can you handle your own money without help?: Yes During the past 4 weeks, how would you rate your health in general?: good During the past 4 weeks how have things been going for you?: good & bad parts about equal Are you having difficulties driving your car?: no Do you always fasten your seat belt when you are in a car?: yes, usually During past 4 weeks, have you been bothered by the following: never: Falling or dizzy when standing up, Sexual problems?, Teeth or denture problems? and Problems using the telephone? and seldom: Trouble eating well? and Tiredness or fatigue? Have you fallen 2 or more times in the past year?: No Are you afraid of falling?: Yes Are you a smoker?: no During the past 4 weeks, how many drinks of wine, beer, or other alcoholic beverages did you have?: 2-5 drinks per week Do you exercise for about 20 minutes 3 or more times a week?: no, I usually do not exercise this much Have you been given information to help with the following?: no: Hazards in your house that might hurt you? and no: Keeping track of your medications? How often do you have trouble taking medicines the way you have been told to take them?: I always take medicine as prescribed How confident are you that you can control & manage most of your health problems?: very confident What is your race?: White PHQ-9 Over the last 2 weeks, how often have you been bothered by any of the following problems? 1. Little interest or pleasure in doing things: not at all 2. Feeling down, depressed, or hopeless: several days 3. Trouble falling or staying asleep, or sleeping too much: not at all 4. Feeling tired or having little energy: several days 5. Poor appetite or overeating: not at all 6. Feeling bad about yourself - or that you are a failure or have let yourself or your family down: not at all 7. Trouble concentrating on things, such as reading the newspaper or watching television: not at all 8. Moving or speaking so slowly that other people could have noticed. Or the opposite - being so fidgety or restless that you have been moving around a lot more than usual: not at all 9. Thoughts that you would be better off or of hurting yourself in some way: not at all Total score: 2 27344 - PHQ-9 Billing: Yes Source: Developed by Drs. Marcos Phan, Holley Encinas, Tk Car and colleagues, with an educational deonte from [employer]. Review of Systems Const Denies poor appetite and Denies weakness Eyes Denies no additional complaints ENT Reports Normal hearing present, Denies dizziness, Denies nasal congestion, Denies tinnitus and Denies sore throat Card Denies chest pain, Denies syncope, Denies rapid heart rate and Denies dyspnea Resp Denies cough and Denies dyspnea GI Denies change in stool character, Reports constipation, Denies diarrhea, Denies nausea and Denies vomiting Denies dysuria and Denies urinary frequency Neuro Reports Normal hearing present, Denies confusion, Denies dizziness, Denies syncope and Denies weakness Psych Denies confusion Physical Exam Vital Signs: Last Vital Signs Pulse 64 12/10/24 14:05 BP 96/50 L 12/10/24 14:05 Pulse Ox 92 12/10/24 14:05 Oxygen Delivery Method Room Air 12/10/24 14:05 BMI result Body Mass Index 28.1 Const General: No confusion Orientation/consciousness: No confusion HEENT Head: Yes normocephalic Ears: external ears normal and TM's normal bilaterally Face and sinus: Yes normal facial exam Mouth: moist mucous membranes Throat: Yes tonsils normal Eyes Conjunctivae: conjunctivae normal Pupils: Equal, round and reactive pupils present and Pupil accommodation reflex normal Direct Ophthalmoscopy: normal light reflex Neck Neck: No lymphadenopathy Thyroid: Thyroid normal Chest Chest palpation & inspection: normal inspection of the chest Resp Effort & Inspection: normal respiratory effort and no audible wheezes Auscultation: clear to auscultation bilaterally, no crackles, no wheezes and lung sounds not diminished Cardio Rate: regular rate Rhythm: regular rhythm Peripheral pulses: radial pulses present and dorsalis pedis present GI Other: guaiac negative , prostate n pin prick mild neuropathy, pedal pulse good, Palpation (GI): no masses Auscultation: normal bowel sounds and normoactive bowel sounds Male General Exam: Yes normal external exam Skin General skin exam: no rashes or lesions noted Rashes: no rashes Neuro General: No confusion Cranial nerves: Yes Equal, round and reactive pupils present and Yes Normal hearing present Cognition (Neuro): normal cognition Gait exam (Neuro): Normal gait present Motor exam (neuro): 5/5 motor strength present throughout Deep tendon reflexes (DTR's): Right brachioradialis reflex intensity grade: 2+, Left brachioradialis reflex intensity grade: 2+, Right patellar reflex intensity grade: 2+ and Left patellar reflex intensity grade: 2+ Extrem General: No edema Results AMB Hemoglobin A1c AMB Hemoglobin A1c 8.4 % Last Edit by ISAIAS Elizabeth on 12/10/24 14:53 Immunizations Tenivac (PF) 5 Lf unit-2 Lf unit/0.5 mL intramuscular syringe Performing Provider: Elida Siddiqui MD Performing Location: [facility] Administered by: ISAIAS Elizabeth on 12/10/24 14:53 Dose Route Admin Location Dispensed Lot Number Expiration Date NDC Patient'S Librarian 0.5 mL IM Left Deltoid 0.5 mL [id number] 08/28/26 [id number] [employer] Total Dispensed Waste 0.5 mL 0 % VIS Given Date VIS Provided VIS Publication Date 12/10/24 Single Vaccine 21 Eligibility Eligibility Date Funding Source Not [facility] Eligible 12/10/24 Private Results Reviewed Results Reviewed: Laboratory Last Values Hgb A1c (Clinic) 8.4 % (4.0-6.0) H 12/10/24 14:03 Assessment & Plan Assessment & Plan (1) Annual physical exam: Code(s): Z00.00 - Encounter for general adult medical examination without abnormal findings Plan: Patient is advised to eat healthy, keep well hydrated, keep active and have adequate sleep. (2) CAD (coronary artery disease): Code(s): I25.10 - Atherosclerotic heart disease of [place] coronary artery without angina pectoris Qualifiers: Associated angina: without angina Coronary Disease-Associated Artery/Lesion type: [place] artery [place] vs. transplanted heart: [place] heart Qualified Code(s): I25.10 - Atherosclerotic heart disease of [place] coronary artery without angina pectoris Plan: Control the cholesterol, weight, blood pressure, diabetes continue with anticoagulation with Eliquis blood work every 4 months needed (3) PAF (paroxysmal atrial fibrillation): Comment: Status post cardioversion Code(s): I48.0 - Paroxysmal atrial fibrillation Plan: Continue with amiodarone and Eliquis. Advised to get blood work every 4 months (4) Congestive heart failure: Comment: Preserved ejection fraction Code(s): I50.9 - Heart failure, unspecified Qualifiers: Heart failure chronicity: chronic Heart failure type: diastolic Qualified Code(s): I50.32 - Chronic diastolic (congestive) heart failure Plan: Continue present medication (5) Bilateral carotid artery disease: Comment: 2011 - right carotid endarterectomy by Dr. Livingston September 202210/2024 70 % R 50-69% L Code(s): I77.9 - Disorder of arteries and arterioles, unspecified Qualifiers: Carotid artery disease type: stenosis Qualified Code(s): I65.23 - Occlusion and stenosis of bilateral carotid arteries Plan: Control the cholesterol, weight, blood pressure, diabetes (6) Type 2 diabetes mellitus with hyperglycemia: Code(s): E11.65 - Type 2 diabetes mellitus with hyperglycemia Qualifiers: Diabetes mellitus terminal makeup operator insulin use: without senior care use Qualified Code(s): E11.65 - Type 2 diabetes mellitus with hyperglycemia Plan: Decrease the amount of carbohydrate intake, pasta, bread, rice and potatoes are all sugar and that is aside from all the sweet stuff, remember that fruits are good but they are Sweet also. Hemoglobin A1c goal of less than 7.0 on Tradjenta and Jardiance (7) Chronic otitis media: Code(s): H66.90 - Otitis media, unspecified, unspecified ear Plan: Continue follow-up with ear nose and throat (8) CKD (chronic kidney disease) stage 3, GFR 30-59 ml/min: Code(s): N18.30 - Chronic kidney disease, stage 3 unspecified Qualifiers: Chronic kidney disease stage 3 subtype: stage 3b (GFR 30-44) Qualified Code(s): N18.32 - Chronic kidney disease, stage 3b Plan: Keep well hydrated avoid NSAIDs (9) Post herpetic neuralgia: Code(s): B02.29 - Other postherpetic nervous system involvement Plan: Patient on pregabalin (10) COPD (chronic obstructive pulmonary disease): Comment: PATIENT HAS ONLY BORDERLINE OBSTRUCTIVE AIRWAY DISORDER AND DOES NOT REQUIRE TO USE ANY BRONCHODILATOR INHALERS. Code(s): J44.9 - Chronic obstructive pulmonary disease, unspecified Qualifiers: COPD type: emphysema Emphysema type: unspecified Qualified Code(s): J4 3.9 - Emphysema, unspecified Plan: Follows up with Pulmonary continue with inhalers (11) JITENDRA on CPAP: Comment: Known case of obstructive sleep apnea since 2017. Has been using CPAP very regularly all this time. He does have new CPAP device however this is still not transmitting the data for compliance. He has to send the chip, to DME. According to his statement he uses very regularly and he is benefiting. Code(s): G47.33 - Obstructive sleep apnea (adult) (pediatric); Z99.89 - Dependence on other enabling machines and devices Plan: Continue to use the CPAP more than 4 hours a night and benefits from this Plan History of Present Illness The patient is an 79-year-old male presenting for an annual physical examination. He has a history of coronary artery disease, hypertension, hypercholesterolemia, and chronic obstructive pulmonary disease (COPD). The patient also has diabetes mellitus and obstructive sleep apnea, for which he uses a CPAP machine regularly. The patient has atrial fibrillation and congestive heart failure, managed with amiodarone and anticoagulation therapy. He follows up with cardiology and undergoes regular liver and thyroid function tests due to amiodarone use. The patient has chronic kidney disease and chronic low back pain. He has a history of carotid artery stenosis, with a previous carotid endarterectomy in 2010, and recent ultrasound showing significant stenosis. Recent blood work indicated anemia and elevated liver enzymes, with advice for alcohol abstinence. The patient also has proteinuria and neuropathy, which may be related to his diabetes. Health Maintenance - Tetanus vaccination administered - Regular follow-up with cardiology and pulmonary specialists - Advised alcohol abstinence due to elevated liver enzymes - Regular liver and thyroid function tests due to amiodarone use Social History - Alcohol consumption: Drinks 2-3 times a week, typically a shot of whiskey - No tobacco use reported - Uses CPAP machine regularly for obstructive sleep apnea - Reports feeling anxious when alone, but finds relief through social interactions Review of Systems - Cardiovascular: Denies chest pain, syncope, or palpitations - Respiratory: Denies dyspnea, cough, or wheezing - Gastrointestinal: Reports regular bowel movements, denies nausea, vomiting, or blood in stool - Genitourinary: Reports frequent urination, especially at night - Neurological: Reports intermittent electrical shock sensation in leg, denies dizziness or headaches Physical Exam General: Cooperative, healthy appearing, comfortable, no acute distress and well developed Orientation: Patient oriented x3 Limitations: No limitations Head: Normal to inspection Ears: Hearing grossly normal bilaterally, uses hearing aid Nose: Normal external nose present Face and sinus: Normal facial exam Eyes: Appearance normal, both eyes and all related structures Neck: Normal visual inspection and Yes full ROM Respiratory: Normal respiratory effort and able to speak in complete sentences. Clear to auscultation bilaterally Cardiovascular: Regular rate and rhythm. Normal S1 and S2 GI: Normal to inspection. Soft to palpation and nontender Skin: No rashes or lesions noted, patient reports scratching on the top of the head, uses coconut butter and ointment Neuro: Patient oriented x3 Extremities: Normal to inspection, reports neuropathy symptoms in legs and feet, no worsening noted Results - Labs: Anemia with hemoglobin 13.6, elevated liver enzymes at 55, stable blood sugar at 166, hemoglobin A1c at 8.4 - Imaging: Carotid ultrasound showing 70% stenosis in right internal carotid artery, 50-69% stenosis in left internal carotid artery Plan The patient will continue with current medications, including amiodarone and Eliquis, with regular blood work every four months to monitor liver and thyroid function due to amiodarone use. He is advised to maintain regular follow-ups with cardiology and pulmonary specialists to manage atrial fibrillation, congestive heart failure, and COPD. The patient should continue using the CPAP machine for obstructive sleep apnea and avoid alcohol to manage elevated liver enzymes. A tetanus vaccination was administered during this visit, and the patient is encouraged to maintain regular health screenings and preventative care measures. Patient was informed and verbally consented to the use of an ambient scribe for clinic note documentation during this visit. Discussion Notes During the visit, I discussed with the patient the importance of continuing his current medication regimen, including amiodarone and Eliquis, and the need for regular blood work every four months to monitor liver and thyroid function. We reviewed the necessity of regular follow-ups with cardiology and pulmonary specialists to manage his atrial fibrillation, congestive heart failure, and COPD. I advised the patient to continue using the CPAP machine for obstructive sleep apnea and to abstain from alcohol to manage his elevated liver enzymes. A tetanus vaccination was administered, and I emphasized the importance of maintaining regular health screenings and preventative care measures. Patient Instructions - Continue taking all prescribed medications, including amiodarone and Eliquis. - Schedule regular follow-ups with your igniter assembler and funeral arrangement director. - Use your CPAP machine every night for at least 4 hours. - Avoid alcohol to help manage liver health. - Return for blood work every four months to monitor liver and thyroid function. - Maintain regular health screenings and preventative care. Orders: Orders Complete Blood Count Auto Diff 3 Months N18.32 - Chronic kidney disease, stage 3b Comprehensive Met. Panel 3 Months N18.32 - Chronic kidney disease, stage 3b Thyroid Stimulating Hormone 3 Months N18.32 - Chronic kidney disease, stage 3b Vitamin B12 and Folate 3 Months N18.32 - Chronic kidney disease, stage 3b Lipid Panel 3 Months E78.00 - Pure hypercholesterolemia, unspecified, N18.32 - Chronic kidney disease, stage 3b Reticulocyte Count 3 Months N18.32 - Chronic kidney disease, stage 3b B Type Natriuretic Peptide 3 Months N18.32 - Chronic kidney disease, stage 3b AMB Hemoglobin A1c Today E11.65 - Type 2 diabetes mellitus with hyperglycemia Free T4 (Free Thyroxine) 3 Months N18.32 - Chronic kidney disease, stage 3b Hemoglobin A1c 3 Months N18.32 - Chronic kidney disease, stage 3b Ferritin 3 Months N18.32 - Chronic kidney disease, stage 3b IRON PROFILE 3 Months N18.32 - Chronic kidney disease, stage 3b Td Immunization Today Z23 - Encounter for immunization Quality Reporting (2019) Depression/Bipolar (159/160/161/177) PHQ-9: Total score: 2 Coding Level of Care Code Medicare Subsequent (G0439) Diagnoses Annual physical exam Z00.00 Coronary artery disease involving [place] coronary artery of [place] heart without angina pectoris I25.10 Associated angina: without angina Coronary Disease-Associated Artery/Lesion type: [place] artery [place] vs. transplanted heart: [place] heart PAF (paroxysmal atrial fibrillation) I48.0 Chronic diastolic congestive heart failure I50.32 Heart failure chronicity: chronic Heart failure type: diastolic Bilateral carotid artery stenosis I65.23 Carotid artery disease type: stenosis Type 2 diabetes mellitus with hyperglycemia, without long-term current use of insulin E11.65 Diabetes mellitus terminal makeup operator insulin use: without terminal makeup operator use Chronic otitis media H66.90 Stage 3b chronic kidney disease N18.32 Chronic kidney disease stage 3 subtype: stage 3b (GFR 30-44) Post herpetic neuralgia B02.29 Pulmonary emphysema, unspecified emphysema type J43.9 COPD type: emphysema Emphysema type: unspecified JITENDRA on CPAP G47.33; Z99.89 Additional Codes PHQ-9 - 89407 - PHQ-9 Billing: Yes ([id number])
[2024-12-10 14:05] VITALS: BP 96/50; PULSE 64; O2SAT 92; BMI 28.1
== END 2024-12-10 14:53 | disposition home or self-care (01) ==
LOC: HO.HMCH 13:33
PROVIDERS: PCP Internal Medicine; Visit Provider Internal Medicine
DX: Z00.00 Encounter for general adult medical examination without abnormal findings (principal); I48.0 Paroxysmal atrial fibrillation; I50.32 Chronic diastolic (congestive) heart failure; E11.65 Type 2 diabetes mellitus with hyperglycemia; N18.32 Chronic kidney disease, stage 3b; J43.9 Emphysema, unspecified; I25.10 Atherosclerotic heart disease of native coronary artery without angina pectoris; I65.23 Occlusion and stenosis of bilateral carotid arteries; B02.29 Other postherpetic nervous system involvement; G47.33 Obstructive sleep apnea (adult) (pediatric); Z23 Encounter for immunization

== ENCOUNTER 2024-12-14 09:33 | Outpatient (AMB) | payer MEDICARE, SELFPAY ==
--- OUTSIDE RECORDS SUMMARY | 2024-12-14 09:39 | XMS_ITS | Patient Health Record ---
[facility] Address [address] [place] [address] Care Team Providers Care Solid Plasterer Name Role Phone Elida Siddiqui Primary Care Provider UnavailBrody Rosales Unavailable [phone] Clau Morel Unavailable [phone] Allergies Allergen (clinical drug ingredient) Drug/Non Drug [...] Problem Acquired hammer toe of right foot ([id number] 9105) Other hammer toe(s) (acquired), right foot (M20.41) Active confirmed Problem Type 2 diabetes mellitus with diabetic peripheral angiopathy without gangrene (E11.51) Active confirmed Problem Acquired hammer toe of left foot ([id number] 9103) Other hammer toe(s) (acquired), left foot (M20.42) Active confirmed Vital Signs Blood pressure diastolic 70 mm Hg 02/22/2024 Height 5 ft 6 in in 02/22/2024 Blood pressure systolic 120 mm Hg 02/22/2024 Weight 185 lbs 02/22/2024 BMI 29.86 kg/m2 02/22/2024 Encounters Encounter Location Date Provider Diagnosis [facility] [address] [address] 02/22/2024 Clau Morel Other hammer toe(s) (acquired), [...] Treatment Pending Test Test Name Order Date [id number] NAIL, 6 OR MORE 06/19/2021 [id number] SKIN LESIONS, OVER 4 06/19/19 Next Appt Details Provider Name:Clau Isaac Angelica isaac, 02/22/2025 10:00:00 AM, [address] [place], [address], Insurance Providers Payer Name Payer Address Payer Phone Subscriber Number Group Number Insured Name Patient Relationship to Insured Coverage Start Date Coverage End Date [facility] [employer] Claims [address] [place] [place] [address] [id number] Deondre Stein Self - patient is the [...]
--- OUTSIDE RECORDS SUMMARY | 2024-12-14 09:40 | XMS_ITS | Patient Health Record ---
Author Organization [facility] Address [address] [place] [address] Care Team Providers Care Outcomes Manager Name Role Phone Elida Siddiqui MD Primary Care Provider Marcos Glasgow [phone] Allergies Allergen (clinical drug ingredient) Drug/Non Drug [...] Problem Status W/U Status Risk Notes Problem [id number] Encounter for screening for malignant neoplasm of colon (Z12.11) Active confirmed Problem [id number] History of adenomatous polyp of colon (Z86.010) Active confirmed Problem 193775160 Long-term use of aspirin therapy (Z79.82) Active confirmed Plan Of Treatment Future Test Test Name Order Date COLONOSCOPY 12/14/2011 COLONOSCOPY 06/01/2017 Insurance Providers Payer Name Payer Address Payer Phone Subscriber Number Group Number Insured Name Patient Relationship to Insured Coverage Start Date Coverage End Date MEDICARE OF [place] [address] [place] [address] [phone] [id number] JUAN TRUJILLO Self - patient is the insured [employer] [address] [place] [phone] [id number] GESJazmín JUAN Self - patient is the insured Medical (General) History Medical History History ICD Code NIDDM HTN Hyperlipidemia Denies [place],CVA,Lung disease,renal disease Shingles on the abdominal wall in and 04/2018 Colonoscopy in 2004 with 2 t ubular adenomas removed; Colonoscopy in 12/2011--small hyperplastic polyp, diverticulosis, and internal hemorrhoids Surgical History Surgery Date(Month/Year) Ruptured biceps on right Ear surgery Right carotid endarterectomy in 2008 Rotator cuff tear repair on right arm
--- NOTE | 2024-12-14 09:44 | A.OFFVIS_ITS ---
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 He is a patient of Dr. James. He seen for the following urologic conditions - bladder outlet obstruction - erectile dysfunction setting of diabetes - Peyronie's disease Three-month follow-up PVR less than 50 cc Glucose 3+ On 25 mg Jardiance. This is causing urinary frequency, nocturia, urgency. Well known side effect for Jardiance in men already suffering from lower urinary tract symptoms. Will reduced dose to 10 mg. If requires further diabetic control would add different medication. Trial solifenacin for urinary urgency Poorly controlled diabetic HbA1c 9.1 - he was very surprised as prior HbA1c had apparently less than 7 Low testosterone 189 Background of chronic pain syndrome with spinal cord stimulator On amiodarone Explained it is very difficult to manage frequent urination when diabetes is poorly controlled Urinary Symptoms Review - Increased urination frequency during daytime and nighttime. - Nocturnal incontinence managed by wearing a diaper. - Weak urine stream noted. - Previously hospitalized with catheterization followed by normalized urination. Lower urinary tract symptoms Trial Flomax - Daytime urination is frequent, occurring multiple times daily. - Nocturnal urination occurs two to three times nightly. [facility]LY [facility] Medical History Dyspnea on exertion Atrial fibrillation Acute heart failure Atrial fibrillation with RVR Cardiomyopathy Cataracts, bilateral Chronic otitis media Peripheral vascular disease Type 2 diabetes mellitus with hyperglycemia Erectile dysfunction Post herpetic neuralgia COPD (chronic obstructive pulmonary disease) Obstructive sleep apnea Rotator cuff tear, left Carotid stenosis Tubular adenoma of colon Hypertension Hypercholesterolemia PVCs (premature ventricular contractions) NICM (nonischemic cardiomyopathy) CAD (coronary artery disease) Surgical History History of cardiac radiofrequency ablation History of colonoscopy History of cataract surgery History of repair of rotator cuff History of cardiac catheterization History of tonsillectomy History of carotid endarterectomy Family History Father H/O ETOH abuse Hypertension Mother Hypertension Brother Diabetes Brother No problems noted. Sister No problems noted. Sister No problems noted. Social History (Updated 12/10/24 @ 14:23 by Elida Siddiqui MD) Household Members: None Housing: House Do you presently have visiting nurse or other home services: No Alcohol intake: current Alcohol intake frequency: holidays/special occasions only Alcohol type: beer Comment: no instruments used. alcohol 2-3 x a week -shot Patient Tobacco Use Status: Never used Tobacco Tobacco use type: Cigarette e-Cigarette/Vaping Use: Never Used Second Hand Smoke Exposure: No Advance Directives Date on File: 11/17/21 service: No Current occupational status: employed Cognitive needs: No Hearing needs: Yes Vision needs: Yes Review of Systems Const Denies chills and Denies fever(s) Card Reports no additional complaints and Denies syncope Resp Denies cough GI Denies abdominal pain and Denies heartburn Reports as per HPI and Denies change in libido Neuro Denies syncope Psych Denies change in libido Endo Denies change in libido Physical Exam Const General: cooperative, healthy appearing, comfortable and no acute distress Orientation/consciousness: patient oriented x3 HEENT Face and sinus: Yes normal facial exam Mouth: moist mucous membranes Neck Neck: Yes normal visual inspection, Yes full ROM and Yes trachea midline Chest Chest palpation & inspection: normal inspection of the chest Resp Effort & Inspection: normal respiratory effort, able to speak in complete sentences and no respiratory distress GI Inspection: Yes normal to inspection Back/Spine/Pelvis Cervical Spine: normal cervical lordosis Thoracic/Lumbar Spine: thoracic and lumbar spine normal to inspection Skin General skin exam: no rashes or lesions noted Neuro General: patient oriented x3, gait normal, tone normal and moves all extremities Extrem General: Yes normal to inspection and Yes capillary refill normal Assessment & Plan Assessment & Plan (1) Type 2 diabetes mellitus with hyperglycemia: Code(s): E11.65 - Type 2 diabetes mellitus with hyperglycemia Category: Medical Qualifiers: Diabetes mellitus senior living insulin use: without senior living use Qualified Code(s): E11.65 - Type 2 diabetes mellitus with hyperglycemia Plan Three-month follow-up office Reduce Jardiance Start solifenacin Medications: New empagliflozin (Jardiance) 10 mg PO DAILY 90 tabs 0RF 90 days E11.65 - Type 2 diabetes mellitus with hyperglycemia solifenacin 5 mg PO DAILY 30 tabs 2RF 30 days N32.0 - Bladder-neck obstruction Patient Instructions: This note is constructed using voice recognition software. While every effort has been made to ensure accuracy tube dispatcher errors may have been included. Imaging studies, laboratory and physical exam results were discussed and reviewed in detail. No major barriers to patient understanding were identified. An opportunity to ask questions regarding the treatment plan was provided. All questions were answered. The patient expressed understanding and agreement with the above treatment plan. The patient is aware they should contact our office by phone for worsening of their current condition or the appearance of new urologic symptoms. Compliance is encouraged with any medications and followup testing that is ordered. It is a privilege to participate in the urologic care of your patient. If you have any questions or concerns regarding treatment for the above conditions, or other urologic issues, please do not hesitate to contact me. The office telephone contact is [phone]. Sincerely, Dr Urbano Issa MD, [facility] - Urology Compassionate Specialist Care for the Genitourinary System Coding Level of Care Code Est Pt Level 4 (42352) Diagnoses Type 2 diabetes mellitus with hyperglycemia, without long-term current use of insulin E11.65 Diabetes mellitus senior living insulin use: without senior living use
== END 2024-12-14 10:17 | disposition home or self-care (01) ==
LOC: HO.HUSH 09:34
PROVIDERS: PCP Internal Medicine; Visit Provider Urology
DX: Z13.9 Encounter for screening, unspecified (principal); E11.65 Type 2 diabetes mellitus with hyperglycemia
CPT/HCPCS: 99214

== ENCOUNTER → 2024-12-14 09:33 | Outpatient (BNVA) | payer MEDICARE, SELFPAY | PROVIDERS: PCP Internal Medicine; Visit Provider Urology | DX: N32.0 Bladder-neck obstruction (principal); E11.69 Type 2 diabetes mellitus with other specified complication; E11.65 Type 2 diabetes mellitus with hyperglycemia; N52.1 Erectile dysfunction due to diseases classified elsewhere | CPT/HCPCS: 51798; 81003; 99212 ==

== ENCOUNTER 2024-12-24 13:56 | Outpatient (AMB) | payer MEDICARE, SELFPAY ==
--- NOTE | 2024-12-24 13:59 | HO.NEPHOV_ITS ---
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 Brick Required: No Accompanied by: Self / Same As Patient Allergies lisinopril Allergy (Unknown, Verified 12/24/24 14:01) Unknown Penicillins (PENICILLINS) Allergy (Unknown, Verified 12/24/24 14:01) UNKNOWN REACTION-CHILDHOOD ALLERGY Medication List - Last Reconciled 12/24/24 by Damián Gillespie MD amiodarone 200 mg PO DAILY apixaban (Eliquis) 5 mg PO BID 30 days atorvastatin 40 mg PO DAILY [AUTO PAP 6-20 cm H2O humidified AIR As directed] cholecalciferol (vitamin D3) 75 mcg PO MOWEFR@1000 cyanocobalamin (vitamin B-12) 2,500 mcg PO DAILY empagliflozin (Jardiance) 10 mg PO DAILY 90 days ezetimibe 10 mg PO DAILY fenofibrate 160 mg PO DAILY folic acid 0.4 mg PO DAILY linagliptin (Tradjenta) 5 mg PO DAILY pregabalin 100 mg PO TID 30 days solifenacin 5 mg PO DAILY 30 days HPI Comments Details: Elderly male with AFib on Eliquis, JITENDRA on CPAP, peripheral arterial disease, coronary artery disease, sac-sghhiap-chvhyyvae diabetes mellitus, CKD stage 3, congestive heart failure with reduced ejection fraction Was recently admitted with acute kidney injury with a serum creatinine of more than 4 mg/dL. Prior to this he was inadvertently taking excessive dose of Lasix. He was supposed to be on 40 mg once a day but he was taking twice a day. During hospitalization diuretics were held he was given IV fluids. Renal function improved in the recent creatinine is 1.9 mg/dL. Currently renal function is close to baseline. He has not on any diuretics. 08/20/24: Overall doing OK; c/o increased urinary frequency ; Nocturia x 3;No dysuria 12/24/24 C/o increased frequency Jardiance has been decreased but he has not seen any improvement [facility] Medical History Dyspnea on exertion Atrial fibrillation Acute heart failure Atrial fibrillation with RVR Cardiomyopathy Cataracts, bilateral Chronic otitis media Peripheral vascular disease Type 2 diabetes mellitus with hyperglycemia Erectile dysfunction Post herpetic neuralgia COPD (chronic obstructive pulmonary disease) Obstructive sleep apnea Rotator cuff tear, left Carotid stenosis Tubular adenoma of colon Hypertension Hypercholesterolemia PVCs (premature ventricular contractions) NICM (nonischemic cardiomyopathy) CAD (coronary artery disease) Surgical History History of cardiac radiofrequency ablation History of colonoscopy History of cataract surgery History of repair of rotator cuff History of cardiac catheterization History of tonsillectomy History of carotid endarterectomy Family History Father H/O ETOH abuse Hypertension Mother Hypertension Brother Diabetes Brother No problems noted. Sister No problems noted. Sister No problems noted. Social History Household Members: None Housing: House Do you presently have visiting nurse or other home services: No Alcohol intake: current Alcohol intake frequency: holidays/special occasions only Alcohol type: beer Comment: no instruments used. alcohol 2-3 x a week -shot Patient Tobacco Use Status: Never used Tobacco Tobacco use type: Cigarette e-Cigarette/Vaping Use: Never Used Second Hand Smoke Exposure: No Advance Directives Date on File: 11/17/21 service: No Current occupational status: employed Cognitive needs: No Hearing needs: Yes Vision needs: Yes Physical Exam Vital Signs: Last Vital Signs Pulse 60 12/24/24 14:00 BP 80/40 L 12/24/24 14:00 Pulse Ox 93 12/24/24 14:00 Oxygen Delivery Method Room Air 12/24/24 14:00 BMI result Body Mass Index 28.2 Const General: comfortable Nutritional Appearance: well nourished Orientation/consciousness: patient oriented x3 HEENT Head: No normal to inspection Mouth: moist mucous membranes Neck Neck: Yes supple and Yes no JVD Resp Auscultation: clear to auscultation bilaterally and no rales Cardio Jugular venous distension: no JVD Palpation: no palpable S3 and no palpable S4 Heart sounds: no rubs GI Palpation (GI): Soft to palpation and nontender Percussion: No Fluid wave present General: Yes no CVA tenderness Back/Spine/Pelvis Back: no CVA tenderness Skin General skin exam: no rashes or lesions noted Neuro General: patient oriented x3 Extrem General: Yes no pedal edema and No clubbing Assessment & Plan Assessment & Plan (1) CKD (chronic kidney disease) stage 3, GFR 30-59 ml/min: Code(s): N18.30 - Chronic kidney disease, stage 3 unspecified Category: Medical Qualifiers: Chronic kidney disease stage 3 subtype: stage 3b (GFR 30-44) Qualified Code(s): N18.32 - Chronic kidney disease, stage 3b (2) Congestive heart failure: Comment: Preserved ejection fraction Code(s): I50.9 - Heart failure, unspecified Category: Medical Qualifiers: Heart failure type: diastolic Heart failure chronicity: chronic Qualified Code(s): I50.32 - Chronic diastolic (congestive) heart failure (3) Acute kidney injury superimposed on chronic kidney disease: Code(s): N17.9 - Acute kidney failure, unspecified; N18.9 - Chronic kidney disease, unspecified Category: Medical Plan Elderly man with acute kidney injury superimposed on chronic kidney disease. Acute kidney injury was primarily due to hypoperfusion from high dose of diuretics and volume depletion. After holding the diuretics and with cautious hydration renal function improved. At present he appears euvolemic. BP is rather low and asymptomatic continue to hold Lasix Cr stable at 1.7 - at baseline Labs ordered Polyuria : multifactorial ; may be due to the use of SGLT-2 inhibitor as well. f/u with urology Orders: Orders Total Protein Urine Random 3 Months I50.32 - Chronic diastolic (congestive) heart failure, N18.32 - Chronic kidney disease, stage 3b UA and rflx microscopic 3 Months I50.32 - Chronic diastolic (congestive) heart failure, N18.32 - Chronic kidney disease, stage 3b Osmolality Urine 3 Months I50.32 - Chronic diastolic (congestive) heart failure, N18.32 - Chronic kidney disease, stage 3b Basic Metabolic Panel 3 Months I50.32 - Chronic diastolic (congestive) heart failure, N18.32 - Chronic kidney disease, stage 3b Creatinine Urine 3 Months I50.32 - Chronic diastolic (congestive) heart failure, N18.32 - Chronic kidney disease, stage 3b Coding Level of Care Code Est Pt Level 4 (45595) Diagnoses Stage 3b chronic kidney disease N18.32 Chronic kidney disease stage 3 subtype: stage 3b (GFR 30-44) Chronic diastolic congestive heart failure I50.32 Heart failure type: diastolic Heart failure chronicity: chronic Acute kidney injury superimposed on chronic kidney disease N17.9; N18.9
[2024-12-24 14:00] VITALS: BP 80/40; PULSE 60; O2SAT 93; BMI 28.2
--- OUTSIDE RECORDS SUMMARY | 2024-12-24 14:42 | XMS_ITS | Patient Health Record ---
Author Organization [facility] Address [address] [place] [address] Care Team Providers Care Inspector And Hand Packager Name Role Phone Elida Siddiqui MD Primary Care Provider Marcos Glasgow [phone] Allergies Allergen (clinical drug ingredient) Drug/Non Drug [...] Problem Status W/U Status Risk Notes Problem 386242861 Encounter for screening for malignant neoplasm of colon (Z12.11) Active confirmed Problem 394779306 History of adenomatous polyp of colon (Z86.010) Active confirmed Problem 467519577 Long-term use of aspirin therapy (Z79.82) Active confirmed Plan Of Treatment Future Test Test Name Order Date COLONOSCOPY 12/14/2011 COLONOSCOPY 06/01/2017 Insurance Providers Payer Name Payer Address Payer Phone Subscriber Number Group Number Insured Name Patient Relationship to Insured Coverage Start Date Coverage End Date MED[place]ARE OF [place] [address] [place] [address] [id number] JUAN TRUJILLO Self - patient is the insured [employer] [address] [place] [phone] [id number] GESJazmín JUAN Self - patient is the insured Medical (General) History Medical History History ICD Code NIDDM HTN Hyperlipidemia Denies [place],CVA,Lung disease,renal disease Shingles on the abdominal wall in and 04/2018 Colonoscopy in 2004 with 2 t ubular adenomas removed; Colonoscopy in 12/2011--small hyperplastic polyp, diverticulosis, and internal hemorrhoids Surgical History Surgery Date(Month/Year) Ruptured biceps on right Ear surgery Right carotid endarterectomy in 2008 Rotator cuff tear repair on right arm
--- OUTSIDE RECORDS SUMMARY | 2024-12-24 14:42 | XMS_ITS | Patient Health Record ---
Author Organization [facility] Address [address] [place] [address] Care Team Providers Care Commercial Green Building Architect Name Role Phone Elida Siddiqui Primary Care Provider UnavailBrody Rosales Unavailable [phone] Clau Morel Unavailable [phone] Allergies Allergen (clinical drug ingredient) Drug/Non Drug [...] Problem Acquired hammer toe of right foot (76878927922924 05) Other hammer toe(s) (acquired), right foot (M20.41) Active confirmed Problem Type 2 diabetes mellitus with peripheral angiopathy (705892538) Type 2 diabetes mellitus with diabetic peripheral angiopathy without gangrene (E11.51) Active confirmed Problem Acquired hammer toe of left foot (35001948823512 03) Other hammer toe(s) (acquired), left foot (M20.42) Active confirmed Vital Signs Blood pressure diastolic 70 mm Hg 02/22/2024 Height 5 ft 6 in in 02/22/2024 Blood pressure systolic 120 mm Hg 02/22/2024 Weight 185 lbs 02/22/2024 BMI 29.86 kg/m2 02/22/2024 Encounters Encounter Location Date Provider Diagnosis [facility] [address] [address] 02/22/2024 Clau Morel Other hammer toe(s) (acquired), [...] Treatment Pending Test Test Name Order Date [id number] NAIL, 6 OR MORE 06/19/2021 [id number] SKIN LESIONS, OVER 4 06/19/19 Next Appt Details Provider Name:Clau Brittney isaac, 02/22/2025 10:00:00 AM, [address] [place], [address], Insurance Providers Payer Name Payer Address Payer Phone Subscriber Number Group Number Insured Name Patient Relationship to Insured Coverage Start Date Coverage End Date [facility] Claims [address] [place] [address] [id number] Deondre Stein Self - patient is the [...]
== END 2024-12-24 14:20 | disposition home or self-care (01) ==
LOC: HO.HKA 13:56
PROVIDERS: PCP Internal Medicine; Visit Provider Internal Medicine Hypertension Specialist
DX: N18.32 Chronic kidney disease, stage 3b (principal); I50.32 Chronic diastolic (congestive) heart failure; N17.9 Acute kidney failure, unspecified; N18.9 Chronic kidney disease, unspecified
CPT/HCPCS: 99214

== ENCOUNTER → 2024-12-24 13:56 | Outpatient (BNVA) | payer MEDICARE, SELFPAY | PROVIDERS: PCP Internal Medicine; Visit Provider Internal Medicine Hypertension Specialist | DX: E11.22 Type 2 diabetes mellitus with diabetic chronic kidney disease (principal); I13.0 Hypertensive heart and chronic kidney disease with heart failure and stage 1 through stage 4 chronic kidney disease, or unspecified chronic kidney disease; N18.32 Chronic kidney disease, stage 3b; I50.32 Chronic diastolic (congestive) heart failure; N17.9 Acute kidney failure, unspecified | CPT/HCPCS: 99212 ==

== ENCOUNTER 2025-01-14 08:48 | Outpatient (AMB) | payer MEDICARE, SELFPAY ==
[2025-01-14 09:12] VITALS: BMI 28.3
--- NOTE | 2025-01-14 09:12 | A.OFFVIS_ITS ---
VS Expanded 01/14/25 09:12 Height 5 ft 6 in Weight 175 lb 4.28 oz BMI 28.3 Intake Visit Reasons: t2DM Allergies lisinopril Allergy (Unknown, Verified 12/24/24 14:01) Unknown Penicillins (PENICILLINS) Allergy (Unknown, Verified 12/24/24 14:01) UNKNOWN REACTION-CHILDHOOD ALLERGY Nutrition Presentation Details: Pt presents for MNT f/u for T2DM Pt lives by himself Reports having 1 -2 meals/day, eating out typically breakfast may be : eggs/sausage bread or Guamanian toast, coffee lunch:fast food meal dinner: pastries /milk etoh: reports 1 shot/day mixed with fruit juice or reg soda etoh/denies monitoring bg:no, declines PFSH Medical History Dyspnea on exertion Atrial fibrillation Acute heart failure Atrial fibrillation with RVR Cardiomyopathy Cataracts, bilateral Chronic otitis media Peripheral vascular disease Type 2 diabetes mellitus with hyperglycemia Erectile dysfunction Post herpetic neuralgia COPD (chronic obstructive pulmonary disease) Obstructive sleep apnea Rotator cuff tear, left Carotid stenosis Tubular adenoma of colon Hypertension Hypercholesterolemia PVCs (premature ventricular contractions) NICM (nonischemic cardiomyopathy) CAD (coronary artery disease) Surgical History History of cardiac radiofrequency ablation History of colonoscopy History of cataract surgery History of repair of rotator cuff History of cardiac catheterization History of tonsillectomy History of carotid endarterectomy Family History Father H/O ETOH abuse Hypertension Mother Hypertension Brother Diabetes Brother No problems noted. Sister No problems noted. Sister No problems noted. Social History Household Members: None Housing: House Do you presently have visiting nurse or other home services: No Alcohol intake: current Alcohol intake frequency: holidays/special occasions only Alcohol type: beer Comment: no instruments used. 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 insulin use: without fpc use Qualified Code(s): E11.65 - Type 2 diabetes mellitus with hyperglycemia Plan: Wt: 80 Kg ( 11/21 ), 01/21 Est kcal needs as per MSJ: 2000 (40% carb, 30% protein/fat) Est fluid needs as per 25-30 ml/d: 2400 Est prot per day as per 1 g/kg bw: 80 Recommend fiber intake : 8-10 g per day and gradually increase to 25-28 g per day for women and 35-38 g for men or as tolerated Recommend sodium intake per day : l less than 2300 mg Educated patient on: ( R = reviewed V = verbalizes understanding N/R = needs review N/A = not applicable * Food sources of carbohydrate, adequate serving sizes and its role in various health conditions: R V N/R * Differences between complex carbohydrates a simple carbohydrates, role of fiber in diet: R * Lean protein sources of foods: R,(01/14/25 ) have a cup of milk and 1/2 sandwich vs pastries at dinner * alcohol reduction: R 01/21 * Differences between types of fats and role in diet (mono on saturated fat fatty acids, saturated fatty acids, trans fats): R V N/R * Food sources of sodium in salt and healthy modifications for heart health in kidney health: R V R/V * Vitamins and minerals: R V N/R * Healthy plate method concept: R * Physical activity: Benefits a precaution: R V N/R * Hypoglycemia protocol (rule of 15): R V N/R * Dietary prevention of Hyperglycemia: R * REFERRAL to [facility] for meals : Referral completed online 01/14/25 Coding Level of Care Code Nutr Indiv Subseq (21218) Diagnoses Type 2 diabetes mellitus with hyperglycemia, without long-term current use of insulin E11.65 Diabetes mellitus fpc insulin use: without fpc use Time Spent (min) 30
--- OUTSIDE RECORDS SUMMARY | 2025-01-14 09:14 | XMS_ITS | Patient Health Record ---
Author Organization [facility] Address [address] [facility] [place] [address] Care Team Providers Care Fixture Repairer Fabricator Name Role Phone Elida Siddiqui Primary Care Provider UnavailBrody Rosales Unavailable [phone] Clau Morel Unavailable [phone] Allergies Allergen (clinical drug ingredient) Drug/Non Drug [...] Problem Acquired hammer toe of right foot (39992532888246 05) Other hammer toe(s) (acquired), right foot (M20.41) Active confirmed Problem Type 2 diabetes mellitus with peripheral angiopathy (063937225) Type 2 diabetes mellitus with diabetic peripheral angiopathy without gangrene (E11.51) Active confirmed Problem Acquired hammer toe of left foot (63577668615873 03) Other hammer toe(s) (acquired), left foot (M20.42) Active confirmed Vital Signs Blood pressure diastolic 70 mm Hg 02/22/2024 Height 5 ft 6 in in 02/22/2024 Blood pressure systolic 120 mm Hg 02/22/2024 Weight 185 lbs 02/22/2024 BMI 29.86 kg/m2 02/22/2024 Encounters Encounter Location Date Provider Diagnosis [facility] [address] [address] 02/22/2024 Clau Morel Other hammer toe(s) (acquired), [...] Treatment Pending Test Test Name Order Date [id number] NAIL, 6 OR MORE 06/19/2021 [id number] SKIN LESIONS, OVER 4 06/19/19 Next Appt Details Provider Name:Clau Brittney isaac, 02/22/2025 10:00:00 AM, [address] [place], [address], Insurance Providers Payer Name Payer Address Payer Phone Subscriber Number Group Number Insured Name Patient Relationship to Insured Coverage Start Date Coverage End Date [facility] SCO Claims [address] [place] [address] [id number] Deondre Stein Self - patient is the [...]
--- OUTSIDE RECORDS SUMMARY | 2025-01-14 09:14 | XMS_ITS | Patient Health Record ---
Author Organization [facility] Address [address] [place] [address] Care Team Providers Care Unit Manager Convenience Stores Name Role Phone Elida Siddiqui MD Primary Care Provider Marcos Glasgow [phone] Allergies Allergen (clinical drug ingredient) Drug/Non Drug [...] Problem Status W/U Status Risk Notes Problem [id number] Encounter for screening for malignant neoplasm of colon (Z12.11) Active confirmed Problem 030122296 History of adenomatous polyp of colon (Z86.010) Active confirmed Problem 846760877 Long-term use of aspirin therapy (Z79.82) Active confirmed Plan Of Treatment Future Test Test Name Order Date COLONOSCOPY 12/14/2011 COLONOSCOPY 06/01/2017 Insurance Providers Payer Name Payer Address Payer Phone Subscriber Number Group Number Insured Name Patient Relationship to Insured Coverage Start Date Coverage End Date MEDICARE OF [place] [address] [place] [address] [id number] JUAN TRUJILLO Self - patient is the insured [employer] [employer] [address] [place] [phone] [id number] GESJazmín JUAN Self - patient is the insured Medical (General) History Medical History History ICD Code NIDDM HTN Hyperlipidemia Denies [place],CVA,Lung disease,renal disease Shingles on the abdominal wall in and 04/2018 Colonoscopy in 2004 with 2 t ubular adenomas removed; Colonoscopy in 12/2011--small hyperplastic polyp, diverticulosis, and internal hemorrhoids Surgical History Surgery Date(Month/Year) Ruptured biceps on right Ear surgery Right carotid endarterectomy in 2008 Rotator cuff tear repair on right arm
== END 2025-01-14 09:45 | disposition home or self-care (01) ==
LOC: HO.ENCR 08:48
PROVIDERS: PCP Internal Medicine; Visit Provider Dietitian, Registered
DX: E11.65 Type 2 diabetes mellitus with hyperglycemia (principal)

== ENCOUNTER → 2025-01-14 08:48 | Outpatient (BNVA) | payer MEDICARE, SELFPAY | PROVIDERS: PCP Internal Medicine; Visit Provider Dietitian, Registered | DX: E11.65 Type 2 diabetes mellitus with hyperglycemia (principal); Z71.3 Dietary counseling and surveillance | CPT/HCPCS: 97803 ==

== ENCOUNTER 2025-02-08 06:20 | Outpatient (REF) | payer MEDICARE, SELFPAY ==
--- OUTSIDE RECORDS SUMMARY | 2024-02-22 04:00 | XMS_ITS ---
Author Organization [facility] Address [address] [place] [address] Care Team Providers Care Sandstone Splitter Name Role Phone Elida Siddiqui Primary Care Provider Brody Carmona Unavailable [phone] Clau Morel [phone] Encounters Encounter Location Date Provider Diagnosis [address] [address] 02/22/2024 Clau Morel Plan Of Treatment Next Appt Details Provider Name:Clau isaac, 04/03/2025 03:00:00 PM, [address] [place] [address], [phone], Progress Notes * CASSANDRA Deondre ADOB:1945 (79 yo M)Acc No.[id number]:02/22/2024 Progress Note Patient: Deondre LOPEZ Provider: Jessee Morel DPM :1945 A ge:78 Y S ex:Male Date:02/22/2024 Address:[address] [place] Pcp:Elida Siddiqui Subjective: * Chief Complaints: * [...] 02/22/2024 Generated for Carmine jack/Alessandra/Yue on: 0 02/08/2025 06:23 AM EDT
--- OUTSIDE RECORDS SUMMARY | 2025-02-08 06:24 | XMS_ITS | Patient Health Record ---
Author Organization [facility] Address [address] [place] [address] Care Team Providers Care Cake Mixer Name Role Phone Elida Siddiqui MD Primary Care Provider Marcos Glasgow [phone] Allergies Allergen (clinical drug ingredient) Drug/Non Drug [...] Problem Status W/U Status Risk Notes Problem 462257849 Encounter for screening for malignant neoplasm of colon (Z12.11) Active confirmed Problem 500799933 History of adenomatous polyp of colon (Z86.010) Active confirmed Problem 088276480 Long-term use of aspirin therapy (Z79.82) Active confirmed Plan Of Treatment Future Test Test Name Order Date COLONOSCOPY 12/14/2011 COLONOSCOPY 06/01/2017 Insurance Providers Payer Name Payer Address Payer Phone Subscriber Number Group Number Insured Name Patient Relationship to Insured Coverage Start Date Coverage End Date [place] OF [place] [address] [place] [address] [id number] JUAN TRUJILLO Self - patient is the insured [employer] [address] [place] [phone] [id number] GESJazmín JUAN Self - patient is the insured Medical (General) History Medical History History ICD Code NIDDM HTN Hyperlipidemia Denies [place],CVA,Lung disease,renal disease Shingles on the abdominal wall in and 04/2018 Colonoscopy in 2004 with 2 t ubular adenomas removed; Colonoscopy in 12/2011--small hyperplastic polyp, diverticulosis, and internal hemorrhoids Surgical History Surgery Date(Month/Year) Ruptured biceps on right Ear surgery Right carotid endarterectomy in 2008 Rotator cuff tear repair on right arm
--- OUTSIDE RECORDS SUMMARY | 2025-02-08 06:24 | XMS_ITS | Patient Health Record ---
Author Organization [facility] Address [address] [facility] [place] [address] Care Team Providers Care Hydraulic Rubbish Compactor Mechanic Name Role Phone Elida Siddiqui Primary Care Provider UnavailBrody Rosales Unavailable [phone] Clau Morel Unavailable [phone] Allergies Allergen (clinical drug ingredient) Drug/Non Drug [...] Problem Acquired hammer toe of right foot (24724044619619 05) Other hammer toe(s) (acquired), right foot (M20.41) Active confirmed Problem Type 2 diabetes mellitus with peripheral angiopathy (313317147) Type 2 diabetes mellitus with diabetic peripheral angiopathy without gangrene (E11.51) Active confirmed Problem Acquired hammer toe of left foot (36566249263704 03) Other hammer toe(s) (acquired), left foot (M20.42) Active confirmed Vital Signs Blood pressure diastolic 70 mm Hg 02/22/2024 Height 5 ft 6 in in 02/22/2024 Blood pressure systolic 120 mm Hg 02/22/2024 Weight 185 lbs 02/22/2024 BMI 29.86 kg/m2 02/22/2024 Encounters Encounter Location Date Provider Diagnosis [facility] [address] [address] 02/22/2024 Clau Morel Other hammer toe(s) (acquired), [...] Treatment Pending Test Test Name Order Date [id number] NAIL, 6 OR MORE 06/19/2021 [id number] SKIN LESIONS, OVER 4 06/19/19 Next Appt Details Provider Name:Clau Brittney isaac, 04/03/2025 03:00:00 PM, [address] [place], [address], Insurance Providers Payer Name Payer Address Payer Phone Subscriber Number Group Number Insured Name Patient Relationship to Insured Coverage Start Date Coverage End Date [facility] SCO Claims [address] [place] [address] [id number] Deondre Stein Self - patient is the [...]
[2025-02-08 06:40] LABS: MANUAL DIFF FLAG NO
[2025-02-08 07:37] LABS: Hematocrit 41.2 % (42.0-52.0); Hemoglobin 13.3 g/dl (14.0-18.0); Imm Gran Abs Auto 0.03 X10*3/uL (0.00-0.03); Imm Gran Pct Auto 0.4 % (0.0-0.4); Lymphocytes Absolute Auto 1.0 X10*3/uL (1.2-4.9); Mean Corpuscular HGB Conc 32.3 g/dl (31.0-36.0); Mean Corpuscular Hemoglobin 29.8 pg (27.0-33.0); Mean Corpuscular Volume 92.2 fL (80.0-98.0); NRBC Abs Auto 0.000 X10*3/uL (0.0-0.012); NRBC Pct Auto 0.0 /100WBC (0.0-0.2); Platelet Count 179 X10*3/uL (160-400); Red Blood Count 4.47 X10*6/uL (4.60-5.80); Reticulocytes Absolute 0.064 X10*6/uL (0.026-0.095); White Blood Count 7.1 X10*3/uL (4.8-10.8)
[2025-02-08 07:44] LABS: Hemoglobin A1C 289.4957 umol/L; Total Hemoglobin (HGBA1C) 3512.5120 umol/L
[2025-02-08 08:08] LABS: B Type Natriuretic Peptide 78 pg/mL (<100)
[2025-02-08 08:13] LABS: Alanine Aminotransferase 27 U/L (0-40); Albumin Level 4.1 g/dL (3.5-5.0); Alkaline Phosphatase 49 U/L (39-117); Anion Gap 12 (12-20); Aspartate Amino Transferase 43 U/L (5-37); Blood Urea Nitrogen 33 mg/dL (9-16); Calcium 9.1 mg/dL (8.4-10.2); Carbon Dioxide 29 mmol/L (22-29); Chloride 107 mmol/L (96-108); Cholesterol 116 mg/dL (<200); Estimated Glomerular Filt Rate 33; HDL Cholesterol 36 mg/dL (>40); Iron 80 mcg/dL (45-160); Percent Iron Saturation 23 % (15-50); Potassium 4.7 mmol/L (3.3-5.1); Sodium 143 mmol/L (135-145); Total Iron Binding Capacity 344 mcg/dL (228-428); Total Protein 6.6 g/dL (6.5-8.0); Triglycerides 130 mg/dL (<150); Unsaturated Iron Binding 264 ug/dL
[2025-02-08 08:35] LABS: Ferritin 60 ng/mL (20-250); Free T4 (Free Thyroxine) 1.15 ng/dL (0.71-1.85); Thyroid Stimulating Hormone 0.85 uIU/mL (0.32-4.0)
[2025-02-08 08:39] LABS: Folate 15.3 ng/mL (> or = 4.0); Vitamin B12 1225 pg/mL (200-900)
== END 2025-02-08 06:21 | disposition home or self-care (01) ==
LOC: HO.LAB 06:20
PROVIDERS: PCP Internal Medicine; Visit Provider Internal Medicine
DX: Z13.1 Encounter for screening for diabetes mellitus (principal); N18.32 Chronic kidney disease, stage 3b; E78.00 Pure hypercholesterolemia, unspecified
CPT/HCPCS: 36415; 80053; 80061; 82607; 82728; 82746; 83036; 83540; 83880; 84439; 84443; 85025; 85045

== ENCOUNTER 2025-02-11 13:20 | Outpatient (AMB) | payer MEDICARE, SELFPAY ==
--- OUTSIDE RECORDS SUMMARY | 2024-02-22 04:00 | XMS_ITS ---
Author Organization [facility] Address [address] [place] [address] Care Team Providers Care Casing Wringer Operator Name Role Phone Elida Siddiqui Primary Care Provider Brody Carmona Unavailable [phone] Clau Morel [phone] Encounters Encounter Location Date Provider Diagnosis [address] [address] 02/22/2024 Clau Morel Plan Of Treatment Next Appt Details Provider Name:Clau isaac, 04/03/2025 03:00:00 PM, [address] [place] [address], [phone], Progress Notes * CASSANDRA Deondre ADOB:1945 (79 yo M)Acc No.[id number]:02/22/2024 Progress Note Patient: Deondre LOPEZ Provider: Jessee Morel DPM :1945 A ge:78 Y S ex:Male Date:02/22/2024 Address:[address] [place] Pcp:Elida Siddiqui Subjective: * Chief Complaints: * [...] 0 02/22/2024 Generated for Carmine jack/Alessandra/Yue on: 0 02/11/2025 06:30 PM EDT
[2025-02-11 13:22] VITALS: BP 114/62; PULSE 64; O2SAT 96; BMI 27.6
--- NOTE | 2025-02-11 13:22 | A.OFFPC_ITS ---
Vital Signs 02/11/25 13:22 Height 5 ft 6 in Weight 171 lb BMI 27.6 BP 114/62 Blood Pressure Location Lt brachial Position Sitting Pulse 64 Pulse Source Pulse Oximeter Pulse Oximetry (%) 96 Oxygen Delivery Method Room Air Intake Visit Reasons: DM Allergies lisinopril Allergy (Unknown, Verified 02/11/25 13:23) Unknown Penicillins (PENICILLINS) Allergy (Unknown, Verified 02/11/25 13:23) UNKNOWN REACTION-CHILDHOOD ALLERGY Tobacco use date assessed: 07/20/24 Fall risk assessment: No Falls in past year Last assessed Fall Risk: 02/11/25 Dental Screening Dental Screen Date: 07/20/24 HPI DM HPI Details noticing forgetfulness 3 months. for the DM - decline additional med and would wants to modify diet stop soda. [facility] Medical History Dyspnea on exertion Atrial fibrillation Acute heart failure Atrial fibrillation with RVR Cardiomyopathy Cataracts, bilateral Chronic otitis media Peripheral vascular disease Type 2 diabetes mellitus with hyperglycemia Erectile dysfunction Post herpetic neuralgia COPD (chronic obstructive pulmonary disease) Obstructive sleep apnea Rotator cuff tear, left Carotid stenosis Tubular adenoma of colon Hypertension Hypercholesterolemia PVCs (premature ventricular contractions) NICM (nonischemic cardiomyopathy) CAD (coronary artery disease) Surgical History History of cardiac radiofrequency ablation History of colonoscopy History of cataract surgery History of repair of rotator cuff History of cardiac catheterization History of tonsillectomy History of carotid endarterectomy Family History Father H/O ETOH abuse Hypertension Mother Hypertension Brother Diabetes Brother No problems noted. Sister No problems noted. Sister No problems noted. Social History Household Members: None Housing: House Do you presently have visiting nurse or other home services: No Alcohol intake: current Alcohol intake frequency: holidays/special occasions only Alcohol type: beer Comment: no instruments used. alcohol 2-3 x a week -shot Patient Tobacco Use Status: Never used Tobacco Tobacco use type: Cigarette e-Cigarette/Vaping Use: Never Used Second Hand Smoke Exposure: No Advance Directives Date on File: 11/17/21 service: No Current occupational status: employed Cognitive needs: No Hearing needs: Yes Vision needs: Yes Questionnaire Thrive Questionnaire Date Thrive assessed: 07/20/24 RENETTA-7 AMB Questionnaire RENETTA-7 Date RENETTA - 7 assessed: 07/20/24 Source: Developed by Drs. Marcos Phan, Holley Encinas, Tk Car and colleagues, with an educational deonte from [employer]. Physical exam (Primary Care) Vital Signs: Last Vital Signs Pulse 64 02/11/25 13:22 BP 114/62 02/11/25 13:22 Pulse Ox 96 02/11/25 13:22 Oxygen Delivery Method Room Air 02/11/25 13:22 BMI result Body Mass Index 27.6 Tobacco/Smoking Status: Tobacco use Status Tobacco use date assessed 07/20/24 02/11/25 13:27 Patient Tobacco Use Status Never used Tobacco 02/11/25 13:27 Tobacco use type Cigarette 02/11/25 13:27 e-Cigarette/Vaping Use Never Used 02/11/25 13:27 Thrive Assessment: Date of Thrive Assessment Date Thrive assessed 07/20/24 02/11/25 13:27 Const General: alert; No acute distress Eyes Conjunctivae: conjunctivae normal Resp Auscultation: clear to auscultation bilaterally Cardio Rate: regular rate Rhythm: regular rhythm GI Inspection: Yes normal to inspection Extrem General: Yes normal to inspection and No edema Coding Level of Care Code Est Pt Level 4 (90563) Complex EM visit Add On G2211 Diagnoses Type 2 diabetes mellitus with hyperglycemia, without long-term current use of insulin E11.65 Diabetes mellitus longterm insulin use: without termite control technician use PAF (paroxysmal atrial fibrillation) I48.0 Hypercholesterolemia E78.00 Chronic diastolic congestive heart failure I50.32 Heart failure chronicity: chronic Heart failure type: diastolic Stage 3b chronic kidney disease N18.32 Chronic kidney disease stage 3 subtype: stage 3b (GFR 30-44) Pulmonary emphysema, unspecified emphysema type J43.9 COPD type: emphysema Emphysema type: unspecified JITENDRA on CPAP G47.33; Z99.89 Cognitive impairment R41.89 Assessment & Plan Assessment & Plan (1) Type 2 diabetes mellitus with hyperglycemia: Code(s): E11.65 - Type 2 diabetes mellitus with hyperglycemia Category: Medical Qualifiers: Diabetes mellitus termite control technician insulin use: without longterm use Qualified Code(s): E11.65 - Type 2 diabetes mellitus with hyperglycemia Plan: Decrease the amount of carbohydrate intake, pasta, bread, rice and potatoes are all sugar and that is aside from all the sweet stuff, remember that fruits are good but they are Sweet also. Hemoglobin A1c goal of less than 7.0 patient on Jardiance but due to the renal function and overactive bladder dropped to 10 mg once a day patient also on Tradjenta 5 mg once a day. does drink soda, and occ eatsbagels and donut. declined additional med (2) PAF (paroxysmal atrial fibrillation): Comment: Status post cardioversion Code(s): I48.0 - Paroxysmal atrial fibrillation Category: Medical Plan: Patient on anticoagulation with Eliquis 5 mg twice a day (3) Hypercholesterolemia: Code(s): E78.00 - Pure hypercholesterolemia, unspecified Category: Medical Plan: Avoid fried foods, chicken skin, eggs, butter margarine, pastries and meat. Be it pork or beef they have a lot of cholesterol LDL goal of less than 70 and triglyceride of less than 150 on atorvastatin 40 mg once a day (4) Congestive heart failure: Comment: Preserved ejection fraction Code(s): I50.9 - Heart failure, unspecified Category: Medical Qualifiers: Heart failure chronicity: chronic Heart failure type: diastolic Qualified Code(s): I50.32 - Chronic diastolic (congestive) heart failure Plan: Continue to monitor, weigh daily (5) CKD (chronic kidney disease) stage 3, GFR 30-59 ml/min: Code(s): N18.30 - Chronic kidney disease, stage 3 unspecified Category: Medical Qualifiers: Chronic kidney disease stage 3 subtype: stage 3b (GFR 30-44) Qualified Code(s): N18.32 - Chronic kidney disease, stage 3b Plan: Keep well hydrated avoid NSAIDs continue to hold diuretics. (6) COPD (chronic obstructive pulmonary disease): Comment: PATIENT HAS ONLY BORDERLINE OBSTRUCTIVE AIRWAY DISORDER AND DOES NOT REQUIRE TO USE ANY BRONCHODILATOR INHALERS. Code(s): J44.9 - Chronic obstructive pulmonary disease, unspecified Category: Medical Qualifiers: COPD type: emphysema Emphysema type: unspecified Qualified Code(s): J43.9 - Emphysema, unspecified Plan: Stable (7) JITENDRA on CPAP: Comment: Known case of obstructive sleep apnea since 2017. Has been using CPAP very regularly all this time. He does have new CPAP device however this is still not transmitting the data for compliance. He has to send the chip, to DME. According to his statement he uses very regularly and he is benefiting. Code(s): G47.33 - Obstructive sleep apnea (adult) (pediatric); Z99.89 - Dependence on other enabling machines and devices Category: Medical Plan: Continue to use the CPAP more than 4 hours a night and benefits from this (8) Cognitive impairment: Comment: 01/2025- no impairment Code(s): R41.89 - Other symptoms and signs involving cognitive functions and awareness Category: Medical Plan: no cognitive impairment and declined futher work up for now () Plan History of Present Illness The patient is an 79-year-old male presenting for a follow-up visit. The patient has a history of coronary artery disease, diabetes mellitus, hypertension, hypercholesterolemia, and chronic obstructive pulmonary disease (COPD). He also has peripheral vascular disease, sleep apnea, bilateral carotid artery disease, and atrial fibrillation. The patient was last seen in November 2024 and has been following up with various specialists, including nephrology and urology. He has chronic kidney disease stage 3, with a stable creatinine level of 1.7, although recent tests showed a level of 1.97. The kidney injury is primarily due to hypoperfusion from high- dose diuretics and volume depletion. The patient has been advised to decrease the dose of tamsulosin to 10 mg once a day for overactive bladder management. He is also on anticoagulation therapy with Eliquis 5 mg twice a day. The patient reports consuming juice and soda daily, which may contribute to elevated blood sugar levels, as his hemoglobin A1c is currently 9.7, up from 8.4 in November. He has been advised to eliminate soda from his diet to help control his blood sugar levels. The patient has expressed concerns about memory issues, such as forgetting destinations while driving and names of items. A cognitive assessment was conducted, and no significant impairment was found, but further monitoring was suggested. Health Maintenance - Advised to eliminate soda from diet to control blood sugar levels - Continue CPAP usage for more than 4 hours a night for sleep apnea management - Flu shot recommended in February Social History - Reports daily consumption of juice and soda, contributing to high sugar intake - Occasional alcohol consumption, including vodka and whiskey Review of Systems - Cardiovascular: Reports atrial fibrillation. Denies chest pain. - Respiratory: Reports use of CPAP for sleep apnea. Denies dyspnea. - Neurological: Reports memory concerns such as forgetting destinations and names. Denies headaches. - Endocrine: Reports elevated blood sugar levels with hemoglobin A1c at 9.7. Physical Exam Results - Labs: Hemoglobin A1c 9.7, creatinine 1.97, LDL cholesterol 54 Plan Patient was informed and verbally consented to the use of an ambient scribe for clinic note documentation during this visit. 1. Diabetes Mellitus The patient's hemoglobin A1c is elevated at 9.7, indicating poor glycemic control. He has been advised to eliminate soda from his diet to help manage blood sugar levels. Consideration of newer medications, including injectable options, was discussed to improve glycemic control without affecting renal function. 2. Chronic Kidney Disease Stage 3 The patient's creatinine level is currently 1.97, with previous stability at 1.7, indicating a decline in renal function. The kidney injury is attributed to hypoperfusion from high-dose diuretics and volume depletion. Monitoring of renal function will continue, and the patient is advised to maintain hydration and avoid NSAIDs. 3. Memory Concerns The patient reports memory issues, such as forgetting destinations and names of items. A cognitive assessment was conducted, showing no significant impairment, but further monitoring was suggested. Discussion Notes During the visit, we discussed the patient's elevated hemoglobin A1c and the need to eliminate soda from his diet to improve glycemic control. We also considered newer injectable medications that could help manage his diabetes without affecting his renal function. The patient's renal function will be monitored, and he is advised to maintain hydration and avoid NSAIDs. A cognitive assessment was performed, and no significant impairment was found, but further monitoring was suggested. Patient Instructions - Eliminate soda from your diet to help control blood sugar levels. - Continue using CPAP for more than 4 hours a night for sleep apnea management. - Maintain hydration and avoid NSAIDs to support kidney health. - Monitor memory concerns and report any changes. - Plan to receive a flu shot in February. Orders: Orders Comprehensive Met. Panel 3 Months N18.32 - Chronic kidney disease, stage 3b Hemoglobin A1c 3 Months N18.32 - Chronic kidney disease, stage 3b
--- OUTSIDE RECORDS SUMMARY | 2025-02-11 18:31 | XMS_ITS | Patient Health Record ---
Author Organization [facility] Address [address] [facility] [place] [address] Care Team Providers Care Blower And Compressor Assembler Name Role Phone Elida Siddiqui Primary Care Provider UnavailBrody Rosales Unavailable [phone] Clau Morel Unavailable [phone] Allergies Allergen (clinical drug ingredient) Drug/Non Drug [...] Problem Acquired hammer toe of right foot (21948018703716 05) Other hammer toe(s) (acquired), right foot (M20.41) Active confirmed Problem Type 2 diabetes mellitus with peripheral angiopathy (789611626) Type 2 diabetes mellitus with diabetic peripheral angiopathy without gangrene (E11.51) Active confirmed Problem Acquired hammer toe of left foot (08185401685109 03) Other hammer toe(s) (acquired), left foot (M20.42) Active confirmed Vital Signs Blood pressure diastolic 70 mm Hg 02/22/2024 Height 5 ft 6 in in 02/22/2024 Blood pressure systolic 120 mm Hg 02/22/2024 Weight 185 lbs 02/22/2024 BMI 29.86 kg/m2 02/22/2024 Encounters Encounter Location Date Provider Diagnosis [facility] [address] [address] 02/22/2024 Clau Morel Other hammer toe(s) (acquired), [...] Treatment Pending Test Test Name Order Date [id number] NAIL, 6 OR MORE 06/19/2021 [id number] SKIN LESIONS, OVER 4 06/19/19 Next Appt Details Provider Name:Clau Brittney isaac, 04/03/2025 03:00:00 PM, [address] [place], [address], Insurance Providers Payer Name Payer Address Payer Phone Subscriber Number Group Number Insured Name Patient Relationship to Insured Coverage Start Date Coverage End Date [facility] SCO Claims [address] [place] [address] [id number] Deondre Stein Self - patient is the [...]
--- OUTSIDE RECORDS SUMMARY | 2025-02-11 18:31 | XMS_ITS | Patient Health Record ---
Author Organization [facility] Address [address] [place] [address] Care Team Providers Care Residential Supervisor Name Role Phone Elida Siddiqui MD Primary Care Provider Marcos Glasgow [phone] Allergies Allergen (clinical drug ingredient) Drug/Non Drug [...] Problem Status W/U Status Risk Notes Problem 883022826 Encounter for screening for malignant neoplasm of colon (Z12.11) Active confirmed Problem 432797296 History of adenomatous polyp of colon (Z86.010) Active confirmed Problem 105159502 Long-term use of aspirin therapy (Z79.82) Active confirmed Plan Of Treatment Future Test Test Name Order Date COLONOSCOPY 12/14/2011 COLONOSCOPY 06/01/2017 Insurance Providers Payer Name Payer Address Payer Phone Subscriber Number Group Number Insured Name Patient Relationship to Insured Coverage Start Date Coverage End Date MED[place]ARE OF [place] [address] [place] [address] [id number] JUAN TRUJILLO Self - patient is the insured [employer] [address] [place] [phone] [id number] GESJazmín JUAN Self - patient is the insured Medical (General) History Medical History History ICD Code NIDDM HTN Hyperlipidemia Denies [place],CVA,Lung disease,renal disease Shingles on the abdominal wall in and 04/2018 Colonoscopy in 2004 with 2 t ubular adenomas removed; Colonoscopy in 12/2011--small hyperplastic polyp, diverticulosis, and internal hemorrhoids Surgical History Surgery Date(Month/Year) Ruptured biceps on right Ear surgery Right carotid endarterectomy in 2008 Rotator cuff tear repair on right arm
== END 2025-02-11 14:19 | disposition home or self-care (01) ==
LOC: HO.HMCH 13:21
PROVIDERS: PCP Internal Medicine; Visit Provider Internal Medicine
DX: E11.65 Type 2 diabetes mellitus with hyperglycemia (principal); I48.0 Paroxysmal atrial fibrillation; I50.32 Chronic diastolic (congestive) heart failure; N18.32 Chronic kidney disease, stage 3b; J43.9 Emphysema, unspecified; E78.00 Pure hypercholesterolemia, unspecified; G47.33 Obstructive sleep apnea (adult) (pediatric); Z99.89 Dependence on other enabling machines and devices; R41.89 Other symptoms and signs involving cognitive functions and awareness

== ENCOUNTER → 2025-02-11 13:20 | Outpatient (BNVA) | payer MEDICARE, SELFPAY | PROVIDERS: PCP Internal Medicine; Visit Provider Internal Medicine | DX: E11.65 Type 2 diabetes mellitus with hyperglycemia (principal); I13.0 Hypertensive heart and chronic kidney disease with heart failure and stage 1 through stage 4 chronic kidney disease, or unspecified chronic kidney disease; E11.22 Type 2 diabetes mellitus with diabetic chronic kidney disease; N18.32 Chronic kidney disease, stage 3b; I50.32 Chronic diastolic (congestive) heart failure; E78.00 Pure hypercholesterolemia, unspecified; I48.0 Paroxysmal atrial fibrillation; J43.9 Emphysema, unspecified; R41.89 Other symptoms and signs involving cognitive functions and awareness; G47.33 Obstructive sleep apnea (adult) (pediatric); Z99.89 Dependence on other enabling machines and devices | CPT/HCPCS: 99212 ==

== ENCOUNTER 2025-02-15 14:25 | Outpatient (REF) | payer SELFPAY | END 2025-02-15 14:26 | disposition home or self-care (01) | LOC: HO.HAP 14:25 | PROVIDERS: Visit Provider Internal Medicine | DX: Z46.1 Encounter for fitting and adjustment of hearing aid (principal); H69.93 Unspecified Eustachian tube disorder, bilateral | CPT/HCPCS: V5267 ==

== ENCOUNTER 2025-03-04 09:46 | Outpatient (AMB) | payer MEDICARE, SELFPAY ==
--- OUTSIDE RECORDS SUMMARY | 2024-02-22 04:00 | XMS_ITS ---
Author Organization [facility] Address [address] [place] [address] Care Team Providers Care Fabric Worker Leader Name Role Phone Elida Siddiqui Primary Care Provider Brody Carmona Unavailable [phone] Clau Morel [phone] Encounters Encounter Location Date Provider Diagnosis [address] [address] 02/22/2024 Clau Morel Plan Of Treatment Next Appt Details Provider Name:Clau isaac, 04/03/2025 03:00:00 PM, [address] [place] [address], [phone], Progress Notes * CASSANDRA Deondre ADOB:1945 (79 yo M)Acc No.[id number]:02/22/2024 Progress Note Patient: Deondre LOPEZ Provider: Jessee Morel DPM :1945 A ge:78 Y S ex:Male Date:02/22/2024 Address:[address] [place] Pcp:Elida Siddiqui Subjective: * Chief Complaints: * [...] 02/22/2024 Generated for Carmine jack/Alessandra/Yue on: 1 11:12 AM EDT
--- OUTSIDE RECORDS SUMMARY | 2025-02-22 06:00 | XMS_ITS ---
Author Organization [facility] Address [address] [place] [address] Care Team Providers Care Shovel Log Loader Operator Name Role Phone Elida Siddiqui Primary Care Provider Brody Carmona Unavailable [phone] Clau Morel [phone] Miller Encounters Encounter Location Date Provider Diagnosis [facility] [address] [place] [address] 02/22/2025 Clau Morel Plan Of Treatment Next Appt Details Provider Name:Clau isaac, 04/03/2025 03:00:00 PM, [address] [place], [address], Progress Notes * LORIEYesenia Deondre ADOB:1945 (79 yo M)Acc No.[id number]:02/22/2025 Progress Note Patient: Deondre LOPEZ Provider: Jessee Morel DPM :1945 A ge:79 Y S ex:Male Date:02/22/2025 Address:[address] [place] Pcp:Elida Siddiqui Subjective: * Chief Complaints: * [...] 0 02/22/2025 Generated for Carmine Davis on: 11:12 AM EDT
--- NOTE | 2025-03-04 09:57 | MHC.OFFVIS ---
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 Vertical Required: No Accompanied by: Self / Same As Patient Allergies lisinopril Allergy (Unknown, Verified 02/11/25 13:23) Unknown Penicillins (PENICILLINS) Allergy (Unknown, Verified 02/11/25 13:23) UNKNOWN REACTION-CHILDHOOD ALLERGY Medication List - Last Reconciled 03/04/25 by Reji Jackson MD amiodarone 200 mg PO DAILY apixaban (Eliquis) 5 mg PO BID 30 days atorvastatin 40 mg PO DAILY [AUTO PAP 6-20 cm H2O humidified AIR As directed] cholecalciferol (vitamin D3) 75 mcg PO MOWEFR@1000 cyanocobalamin (vitamin B-12) 2,500 mcg PO DAILY empagliflozin (Jardiance) 10 mg PO DAILY 90 days ezetimibe 10 mg PO DAILY fenofibrate 160 mg PO DAILY folic acid 0.4 mg PO DAILY linagliptin (Tradjenta) 5 mg PO DAILY pregabalin 100 mg PO TID 30 days solifenacin 5 mg PO DAILY 30 days HPI Comments Details: Pleasant 79 year gentleman who is here for follow-up. He has known history of coronary artery disease and underwent PCI with rotablation to LAD. He also had right coronary artery PCI. Also previously developed AFib with RVR and cardiomyopathy. He was cardioverted and started on amiodarone and since then has been in sinus rhythm. He is denying any significant symptoms currently. No shortness of breath or chest discomfort. No syncope. He has chronic back pain issues and continues to be in pain and has been using medications and patches. 03/04/25: Here for f/u. He has experienced off and on dizziness. No CP or SOB. He has first degree AV block, RBBB and LAFB. He is on amiodarone. [facility] Medical History Dyspnea on exertion Atrial fibrillation Acute heart failure Atrial fibrillation with RVR Cardiomyopathy Cataracts, bilateral Chronic otitis media Peripheral vascular disease Type 2 diabetes mellitus with hyperglycemia Erectile dysfunction Post herpetic neuralgia COPD (chronic obstructive pulmonary disease) Obstructive sleep apnea Rotator cuff tear, left Carotid stenosis Tubular adenoma of colon Hypertension Hypercholesterolemia PVCs (premature ventricular contractions) NICM (nonischemic cardiomyopathy) CAD (coronary artery disease) Surgical History History of cardiac radiofrequency ablation History of colonoscopy History of cataract surgery History of repair of rotator cuff History of cardiac catheterization History of tonsillectomy History of carotid endarterectomy Family History Father H/O ETOH abuse Hypertension Mother Hypertension Brother Diabetes Brother No problems noted. Sister No problems noted. Sister No problems noted. Social History Household Members: None Housing: House Do you presently have visiting nurse or other home services: No Alcohol intake: current Alcohol intake frequency: holidays/special occasions only Alcohol type: beer Comment: no instruments used. alcohol 2-3 x a week -shot Patient Tobacco Use Status: Never used Tobacco Tobacco use type: Cigarette e-Cigarette/Vaping Use: Never Used Second Hand Smoke Exposure: No Advance Directives Date on File: 11/17/21 service: No Current occupational status: employed Cognitive needs: No Hearing needs: Yes Vision needs: Yes Review of Systems Const Denies chills, Denies fatigue, Denies fever(s), Denies frequent falls, Denies weakness, Denies weight gain and Denies weight loss ENT Denies dizziness Card Denies chest pain, Denies leg edema, Denies lightheadedness, Denies palpitations, Denies dyspnea and Denies dyspnea on exertion Resp Denies cough, Denies dyspnea and Denies dyspnea on exertion GI Denies hematochezia Musc Denies abnormal gait, Denies muscle weakness, Denies numbness, Denies radiating pain into limb and Denies tingling Neuro Denies abnormal gait, Denies dizziness, Denies frequent falls, Denies numbness, Denies tingling and Denies weakness Endo Denies fatigue and Denies palpitations Physical Exam Vital Signs: Last Vital Signs Pulse 58 03/04/25 09:59 BP 110/56 L 03/04/25 09:59 BMI result Body Mass Index 28.2 GENERAL APPEARANCE: in no acute distress, pleasant. NECK: no carotid bruit, no jugular venous distention. SKIN: no suspicious lesions, warm and dry. HEART: no murmurs, regular rate and rhythm. Bradycardic. LUNGS: clear to auscultation bilaterally. ABDOMEN: soft, nontender. EXTREMITIES: no edema. PERIPHERAL PULSES: equal. NEUROLOGIC: No gross deficits, AAO X 3 Office Procedures EKG Details: Sinus bradycardia 58 beats per minute, first-degree AV block, right bundle-branch block, left anterior fascicular block, QT interval 488 milliseconds. 93477-Vazlyiivdchokypdk, Complete Assessment & Plan Assessment & Plan (1) Hypertension: Code(s): I10 - Essential (primary) hypertension Category: Medical Qualifiers: Hypertension type: essential hypertension Qualified Code(s): I10 - Essential (primary) hypertension (2) Congestive heart failure: Comment: Preserved ejection fraction Code(s): I50.9 - Heart failure, unspecified Category: Medical Qualifiers: Heart failure chronicity: chronic Heart failure type: diastolic Qualified Code(s): I50.32 - Chronic diastolic (congestive) heart failure (3) Bradycardia: Code(s): R00.1 - Bradycardia, unspecified Category: Medical (4) PAF (paroxysmal atrial fibrillation): Comment: Status post cardioversion Code(s): I48.0 - Paroxysmal atrial fibrillation Category: Medical Plan 79 male with known h/o CAD s/p PCI, PAF and Tachy induced CM s/p cardioversion on Amiodarone. ECG showing First degree AVB, RBBB and LAFB. Occasional dizziness. He is on amiodarone. I am concerned about significant conduction issues. I am referring him to EP. Options are to consider Afib ablation and stop the amiodarone. Alternatively EP may consider pacemaker placement and we can continue Amiodarone. 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 f/u in few months. Orders: Referrals Cardiac Electrophysiology Referral I48.0 - Paroxysmal atrial fibrillation, R00.1 - Bradycardia, unspecified Coding Level of Care Code Est Pt Level 5 (42985) Diagnoses Essential hypertension I10 Hypertension type: essential hypertension Chronic diastolic congestive heart failure I50.32 Heart failure chronicity: chronic Heart failure type: diastolic Bradycardia R00.1 PAF (paroxysmal atrial fibrillation) I48.0 CPT Codes EKG - CPT: 62147-Qkklwozqwjnkdqvnx, Complete ([id number])
[2025-03-04 09:59] VITALS: BP 110/56; PULSE 58; BMI 28.2
--- OUTSIDE RECORDS SUMMARY | 2025-03-04 11:12 | XMS_ITS | Patient Health Record ---
Author Organization [facility] Address [address] [place] [address] Care Team Providers Care Corrugated Box Machine Operator Name Role Phone Elida Siddiqui MD Primary Care Provider Marcos Glasgow [phone] Allergies Allergen (clinical drug ingredient) Drug/Non Drug [...] Problem Status W/U Status Risk Notes Problem 354651034 Encounter for screening for malignant neoplasm of colon (Z12.11) Active confirmed Problem 812012963 History of adenomatous polyp of colon (Z86.010) Active confirmed Problem 043815716 Long-term use of aspirin therapy (Z79.82) Active confirmed Plan Of Treatment Future Test Test Name Order Date COLONOSCOPY 12/14/2011 COLONOSCOPY 06/01/2017 Insurance Providers Payer Name Payer Address Payer Phone Subscriber Number Group Number Insured Name Patient Relationship to Insured Coverage Start Date Coverage End Date MEDICARE OF [place] [address] [place] [id number] JUAN TRUJILLO Self - patient is the insured [employer] [address] [place] [id number] GESJazmín JUAN Self - patient is the [...]
--- OUTSIDE RECORDS SUMMARY | 2025-03-04 11:12 | XMS_ITS | Patient Health Record ---
Author [facility] Address [address] [place] [address] Care Team Providers Care Laborer Tan House Name Role Phone Elida Siddiqui Primary Care Provider UnavailBrody Rosales Unavailable [phone] Clau Morel Unavailable [phone] Allergies Allergen (clinical drug ingredient) Drug/Non Drug [...] Problem Acquired hammer toe of right foot (36523302748400 05) Other hammer toe(s) (acquired), right foot (M20.41) Active confirmed Problem Type 2 diabetes mellitus with peripheral angiopathy (544705646) Type 2 diabetes mellitus with diabetic peripheral angiopathy without gangrene (E11.51) Active confirmed Problem Acquired hammer toe of left foot (72860335603934 03) Other hammer toe(s) (acquired), left foot (M20.42) Active confirmed Plan Of Treatment Pending Test Test Name Order Date 84238-IPYIKDH NAIL, 6 OR MORE 06/19/2021 52791-NNSU SKIN LESIONS, OVER 4 06/19/19 22 Next Appt Details Provider Name:Clau isaac, 04/03/2025 03:00:00 PM, [address] [facility], [place], [address], Insurance Providers Payer Name Payer Address Payer Phone Subscriber Number Group Number Insured Name Patient Relationship to Insured Coverage Start Date Coverage End Date [facility] [employer] Claims [address] [facility] [place] [address] [phone] [id number] Deondre Stein Self - patient is the insured Medical (General) History Medical History History ICD Code type II diabetes high blood pressure hypercholesterolemia cataracts Broken bones CAD (Cholesterol) Cataracts covid-19 Headaches/Migraines Stomach ulcer Measles Mumps Chicken pox Surgical History Surgery Date(Month/Year) carotid endarterectomy tonsillectomy torn bicep muscle artery RT 2 stent 2018 Hospitalization History Reason Date(Month/Year) kidney failure 03/2023
== END 2025-03-04 10:26 | disposition home or self-care (01) ==
LOC: HO.HCS 09:47
PROVIDERS: PCP Internal Medicine; Visit Provider Internal Medicine Cardiovascular Disease
DX: I11.0 Hypertensive heart disease with heart failure (principal); I50.32 Chronic diastolic (congestive) heart failure; R00.1 Bradycardia, unspecified; I48.0 Paroxysmal atrial fibrillation
CPT/HCPCS: 99215

== ENCOUNTER → 2025-03-04 09:46 | Outpatient (BNVA) | payer MEDICARE, SELFPAY | PROVIDERS: PCP Internal Medicine; Visit Provider Internal Medicine Cardiovascular Disease | DX: I11.0 Hypertensive heart disease with heart failure (principal); I50.32 Chronic diastolic (congestive) heart failure; I48.0 Paroxysmal atrial fibrillation; R00.1 Bradycardia, unspecified | CPT/HCPCS: 93005; 99212 ==

== ENCOUNTER 2025-03-15 11:41 | Outpatient (AMB) | payer MEDICARE, SELFPAY ==
--- OUTSIDE RECORDS SUMMARY | 2024-02-22 04:00 | XMS_ITS ---
Author Organization [facility] Address [address] [place] [address] Care Team Providers Care Wire Saw Operator Name Role Phone Elida Siddiqui Primary Care Provider Brody aCrmona Unavailable [phone] Clau Morel [phone] Encounters Encounter Location Date Provider Diagnosis [address] [address] 02/22/2024 Clau Morel Plan Of Treatment Next Appt Details Provider Name:Clau isaac, 04/03/2025 03:00:00 PM, [address] [place] [address], [phone], Progress Notes * CASSANDRA Deondre ADOB:1945 (79 yo M)Acc No.[id number]:02/22/2024 Progress Note Patient: Deondre LOPEZ Provider: Jessee Morel DPM :1945 A ge:78 Y S ex:Male Date:02/22/2024 Address:[address] [place] Pcp:Elida Siddiqui Subjective: * Chief Complaints: * [...] 02/22/2024 Generated for Carmine jack/Alessandra/Yue on: 1 02:33 PM EDT
--- OUTSIDE RECORDS SUMMARY | 2025-02-22 06:00 | XMS_ITS ---
Author Organization [facility] Address [address] [place] [address] Care Team Providers Care Financial Director Name Role Phone Elida Siddiqui Primary Care Provider Brody Carmona Unavailable [phone] Clau Morel [phone] Miller Encounters Encounter Location Date Provider Diagnosis [facility] [address] [place] [address] 02/22/2025 Clau Morel Plan Of Treatment Next Appt Details Provider Name:Clau isaac, 04/03/2025 03:00:00 PM, [address] [place], [address], Progress Notes * LORIEYesenia Deondre ADOB:1945 (79 yo M)Acc No.[id number]:02/22/2025 Progress Note Patient: Deondre LOPEZ Provider: Jessee Morel DPM :1945 A ge:79 Y S ex:Male Date:02/22/2025 Address:[address] [place] Pcp:Elida Siddiqui Subjective: * Chief Complaints: * [...] 0 02/22/2025 Generated for Carmine Davis on: 02:33 PM EDT
--- NOTE | 2025-03-15 11:45 | MHC.OFFVIS ---
Intake Visit Reasons: 3m/UA/PVR Intake Note: patient presents today for: 3mo follow up urology medications: vesicare blood thinners: eliquis Allergies lisinopril Allergy (Unknown, Verified 02/11/25 13:23) Unknown Penicillins (PENICILLINS) Allergy (Unknown, Verified 02/11/25 13:23) UNKNOWN REACTION-CHILDHOOD ALLERGY HPI Comments Details: Edilberto is a pleasant male. He is a patient of Dr. James. He seen for the following urologic conditions - bladder outlet obstruction - erectile dysfunction setting of diabetes - Peyronie's disease Three-month follow-up Low PVR Diabetes worsening Trial Shannon Had been on 25 mg Jardiance. This is causing urinary frequency, nocturia, urgency. Well known side effect for Jardiance in men already suffering from lower urinary tract symptoms. Will reduced dose to 10 mg. If requires further diabetic control would add different medication. Medication not helpful Diabetes worsening Poorly controlled diabetic HbA1c 9.1 - he was very surprised as prior HbA1c had apparently less than 7 Low testosterone 189 Background of chronic pain syndrome with spinal cord stimulator On amiodarone Explained it is very difficult to manage frequent urination when diabetes is poorly controlled Urinary Symptoms Review - Increased urination frequency during daytime and nighttime. - Nocturnal incontinence managed by wearing a diaper. - Weak urine stream noted. - Previously hospitalized with catheterization followed by normalized urination. Lower urinary tract symptoms Trial Flomax - Daytime urination is frequent, occurring multiple times daily. - Nocturnal urination occurs two to three times nightly. - failed oxybutynin, failed solifenacin PFSH Medical History Dyspnea on exertion Atrial fibrillation Acute heart failure Atrial fibrillation with RVR Cardiomyopathy Cataracts, bilateral Chronic otitis media Peripheral vascular disease Type 2 diabetes mellitus with hyperglycemia Erectile dysfunction Post herpetic neuralgia COPD (chronic obstructive pulmonary disease) Obstructive sleep apnea Rotator cuff tear, left Carotid stenosis Tubular adenoma of colon Hypertension Hypercholesterolemia PVCs (premature ventricular contractions) NICM (nonischemic cardiomyopathy) CAD (coronary artery disease) Surgical History History of cardiac radiofrequency ablation History of colonoscopy History of cataract surgery History of repair of rotator cuff History of cardiac catheterization History of tonsillectomy History of carotid endarterectomy Family History Father H/O ETOH abuse Hypertension Mother Hypertension Brother Diabetes Brother No problems noted. Sister No problems noted. Sister No problems noted. Social History Household Members: None Housing: House Do you presently have visiting nurse or other home services: No Alcohol intake: current Alcohol intake frequency: holidays/special occasions only Alcohol type: beer Comment: no instruments used. alcohol 2-3 x a week -shot Patient Tobacco Use Status: Never used Tobacco Tobacco use type: Cigarette e-Cigarette/Vaping Use: Never Used Second Hand Smoke Exposure: No Advance Directives Date on File: 11/17/21 service: No Current occupational status: employed Cognitive needs: No Hearing needs: Yes Vision needs: Yes Review of Systems Const Denies chills and Denies fever(s) Card Reports no additional complaints and Denies syncope Resp Denies cough GI Denies abdominal pain and Denies heartburn Reports as per HPI and Denies change in libido Neuro Denies syncope Psych Denies change in libido Endo Denies change in libido Physical Exam Const General: cooperative, healthy appearing, comfortable and no acute distress Orientation/consciousness: patient oriented x3 HEENT Face and sinus: Yes normal facial exam Mouth: moist mucous membranes Neck Neck: Yes normal visual inspection, Yes full ROM and Yes trachea midline Chest Chest palpation & inspection: normal inspection of the chest Resp Effort & Inspection: normal respiratory effort, able to speak in complete sentences and no respiratory distress GI Inspection: Yes normal to inspection Back/Spine/Pelvis Cervical Spine: normal cervical lordosis Thoracic/Lumbar Spine: thoracic and lumbar spine normal to inspection Skin General skin exam: no rashes or lesions noted Neuro General: patient oriented x3, gait normal, tone normal and moves all extremities Extrem General: Yes normal to inspection and Yes capillary refill normal Office Procedures Post Void Residual Post Residual Void Post Void Residual (PVR): 77 06166-Wmcs Void Residual by ultrasound Results AMB Urinalysis, Automated UA Leukoctes 125 Morro/uL Last Edit by ISAIAS Bonds on 03/15/25 12:01 UA Nitrite Last Edit by ISAIAS Bonds on 03/15/25 12:01 UA Urobilinogen 0.2 mg/dL Last Edit by ISAIAS Bonds on 03/15/25 12:01 UA Protein 15 mg/dL Last Edit by ISAIAS Bonds on 03/15/25 12:01 UA pH 6.0 Last Edit by ISAIAS Bonds on 03/15/25 12:01 UA Blood 10 Balaji/uL Last Edit by ISAIAS Bonds on 03/15/25 12:01 UA Specific Palmer 1.010 Last Edit by ISAIAS Bonds on 03/15/25 12:01 UA Ketone Negative Last Edit by ISAIAS Bonds on 03/15/25 12:01 UA Bilirubin 0 mg/dL Last Edit by ISAIAS Bonds on 03/15/25 12:01 UA Glucose 1000 mg/dL Last Edit by ISAIAS Bonds on 03/15/25 12:01 Results Reviewed Results Reviewed: Laboratory Last Values Urine pH (Auto) 6.0 03/15/25 12:00 Specific Palmer (Auto) 1.010 03/15/25 12:00 Urine Protein (Auto) 15 mg/dL 03/15/25 12:00 Glucose (UA)(Auto) 1000 mg/dL 03/15/25 12:00 Urine Ketones (Auto) Negative 03/15/25 12:00 Urine Blood (Auto) 10 Balaji/uL 03/15/25 12:00 Urine Bilirubin (Auto) 0 mg/dL 03/15/25 12:00 Urine Urobilinogen (Auto) 0.2 mg/dL 03/15/25 12:00 Leukocyte Esterase (Auto) 125 Morro/uL 03/15/25 12:00 Assessment & Plan Assessment & Plan (1) Bladder outlet obstruction: Code(s): N32.0 - Bladder-neck obstruction Category: Medical (2) Urinary urgency: Code(s): R39.15 - Urgency of urination Category: Medical (3) Nocturia more than twice per night: Code(s): R35.1 - Nocturia Category: Medical Plan Trial Toviaz Orders: Orders AMB Urinalysis Automated Today Z13.9 - Encounter for screening, unspecified AMB Post Void Residual by ultrasound Today R30.0 - Dysuria Medications: New fesoterodine ER 4 mg PO DAILY 30 tabs 1RF 30 days Discontinued solifenacin Discontinued Reason: Patient Completed Course 5 mg PO DAILY 30 days 30 tabs 2RF N32.0 - Bladder-neck obstruction Patient Instructions: This note is constructed using voice recognition software. While every effort has been made to ensure accuracy company doctor errors may have been included. Imaging studies, laboratory and physical exam results were discussed and reviewed in detail. No major barriers to patient understanding were identified. An opportunity to ask questions regarding the treatment plan was provided. All questions were answered. The patient expressed understanding and agreement with the above treatment plan. The patient is aware they should contact our office by phone for worsening of their current condition or the appearance of new urologic symptoms. Compliance is encouraged with any medications and followup testing that is ordered. It is a privilege to participate in the urologic care of your patient. If you have any questions or concerns regarding treatment for the above conditions, or other urologic issues, please do not hesitate to contact me. The office telephone contact is [phone]. Sincerely, Dr Urbano Issa MD, [facility] - Urology Compassionate Specialist Care for the Genitourinary System Coding Level of Care Code Est Pt Level 4 (95254) Diagnoses Bladder outlet obstruction N32.0 Urinary urgency R39.15 Nocturia more than twice per night R35.1 CPT Codes Post Residual Void - PVR CPT Code: 81523-Fevi Void Residual by ultrasound ([id number])
--- OUTSIDE RECORDS SUMMARY | 2025-03-15 14:33 | XMS_ITS | Patient Health Record ---
Author Organization [facility] Address [address] [place] [address] Care Team Providers Care Lead Database Developer Name Role Phone Elida Siddiqui MD Primary Care Provider Marcos Glasgow [phone] Allergies Allergen (clinical drug ingredient) Drug/Non Drug [...] Problem Status W/U Status Risk Notes Problem Screening for malignant neoplasm of colon (372506860) Encounter for screening for malignant neoplasm of colon (Z12.11) Active confirmed Problem History of adenomatous polyp of colon (341142331) History of adenomatous polyp of colon (Z86.010) Active confirmed Problem Long-term current use of antiplatelet drug (663150247975472 ) Long-term use of aspirin therapy (Z79.82) Active confirmed Plan Of Treatment Future Test Test Name Order Date COLONOSCOPY 12/14/2011 COLONOSCOPY 06/01/2017 Insurance Providers Payer Name Payer Address Payer Phone Subscriber Number Group Number Insured Name Patient Relationship to Insured Coverage Start Date Coverage End Date MEDICARE OF [place] [address] [place] [id number] GESS, JUAN Self - patient is the insured [employer] [address] [place] [id number] GESS, JUAN Self - patient is the insured Medical (General) History Medical History History ICD Code NIDDM HTN Hyperlipidemia Denies [place],CVA,Lung disease,renal disease Shingles on the abdominal wall in and 04/2018 Colonoscopy in 2004 with 2 t ubular adenomas removed; Colonoscopy in 12/2011--small hyperplastic polyp, diverticulosis, and internal hemorrhoids Surgical History Surgery Date(Month/Year) Ruptured biceps on right Ear surgery Right carotid endarterectomy in 2008 Rotator cuff tear repair on right arm
--- OUTSIDE RECORDS SUMMARY | 2025-03-15 14:34 | XMS_ITS | Patient Health Record ---
Author Organization [facility] Address [address] [facility] [place] [address] Care Team Providers Care Network Technology Instructor Name Role Phone Elida Siddiqui Primary Care Provider UnavailBrody Rosales Unavailable [phone] Clau Morel Unavailable [phone] Allergies Allergen (clinical drug ingredient) Drug/Non Drug [...] Problem Acquired hammer toe of right foot (95879932127351 05) Other hammer toe(s) (acquired), right foot (M20.41) Active confirmed Problem Type 2 diabetes mellitus with peripheral angiopathy (711595239) Type 2 diabetes mellitus with diabetic peripheral angiopathy without gangrene (E11.51) Active confirmed Problem Acquired hammer toe of left foot (38376312334151 03) Other hammer toe(s) (acquired), left foot (M20.42) Active confirmed Plan Of Treatment Pending Test Test Name Order Date [id number] NAIL, 6 OR MORE 06/19/2021 [id number] SKIN LESIONS, OVER 4 06/19/19 22 Next Appt Details Provider Name:Clau isaac, 04/03/2025 03:00:00 PM, [address] [facility], [place], [address], Insurance Providers Payer Name Payer Address Payer Phone Subscriber Number Group Number Insured Name Patient Relationship to Insured Coverage Start Date Coverage End Date [facility] [employer] Claims [address] [facility] [place] [address] [id number] Deondre Stein Self - patient is the [...]
== END 2025-03-15 12:20 | disposition home or self-care (01) ==
LOC: HO.HUSH 11:41
PROVIDERS: PCP Internal Medicine; Visit Provider Urology
DX: N32.0 Bladder-neck obstruction (principal); R39.15 Urgency of urination; R35.1 Nocturia; Z13.9 Encounter for screening, unspecified
CPT/HCPCS: 99214

== ENCOUNTER → 2025-03-15 11:41 | Outpatient (BNVA) | payer MEDICARE, SELFPAY | PROVIDERS: PCP Internal Medicine; Visit Provider Urology | DX: N32.0 Bladder-neck obstruction (principal); R39.15 Urgency of urination; R35.1 Nocturia | CPT/HCPCS: 51798; 81003; 99212 ==

== ENCOUNTER 2025-03-20 12:09 | Outpatient (REF) | payer MEDICARE, SELFPAY ==
--- OUTSIDE RECORDS SUMMARY | 2024-02-22 04:00 | XMS_ITS ---
Author Organization [facility] Address [address] [place] [address] Care Team Providers Care Wireless Consultant Name Role Phone Elida Siddiqui Primary Care Provider Brody Carmona Unavailable [phone] Clau Morel [phone] Encounters Encounter Location Date Provider Diagnosis [address] [address] 02/22/2024 Clau Morel Plan Of Treatment Next Appt Details Provider Name:Clau isaac, 04/03/2025 03:00:00 PM, [address] [place] [address], [phone], Progress Notes * CASSANDRA Deondre ADOB:1945 (79 yo M)Acc No.[id number]:02/22/2024 Progress Note Patient: Deondre LOPEZ Provider: Jessee Morel DPM :1945 A ge:78 Y S ex:Male Date:02/22/2024 Address:[address] [place] Pcp:Elida Siddiqui Subjective: * Chief Complaints: * [...] 02/22/2024 Generated for Carmine jack/Alessandra/Yue on: 1 05:04 PM EDT
--- OUTSIDE RECORDS SUMMARY | 2025-02-22 06:00 | XMS_ITS ---
Author Organization [facility] Address [address] [place] [address] Care Team Providers Care Acquisition Cost Estimator Name Role Phone Elida Siddiqui Primary Care Provider Brody Carmona Unavailable [phone] Clau Morel [phone] Miller Encounters Encounter Location Date Provider Diagnosis [facility] [address] [place] [address] 02/22/2025 Clau Morel Plan Of Treatment Next Appt Details Provider Name:Clau isaac, 04/03/2025 03:00:00 PM, [address] [place], [address], Progress Notes * LORIEYesenia Deondre ADOB:1945 (79 yo M)Acc No.[id number]:02/22/2025 Progress Note Patient: Deondre LOPEZ Provider: Jessee Morel DPM :1945 A ge:79 Y S ex:Male Date:02/22/2025 Address:[address] [place] Pcp:Elida Siddiqui Subjective: * Chief Complaints: * [...] 0 02/22/2025 Generated for Carmine Davis on: 05:04 PM EDT
[2025-03-20 13:08] LABS: Anion Gap 10 (12-20); Blood Urea Nitrogen 28 mg/dL (9-16); Calcium 9.1 mg/dL (8.4-10.2); Carbon Dioxide 29 mmol/L (22-29); Chloride 108 mmol/L (96-108); Estimated Glomerular Filt Rate 38; Potassium 4.6 mmol/L (3.3-5.1); Sodium 142 mmol/L (135-145)
[2025-03-20 13:48] LABS: Appearance Urine Cloudy; Glucose Urine UA >=1000 mg/dL (Negative); PH 7.0 (5.0-9.0); Specific Gravity - Urine 1.025 (1.005-1.025); UMIC TRIGGER UA YES
[2025-03-20 14:34] LABS: Total Protein Urine Random 28 mg/dL (<12)
--- OUTSIDE RECORDS SUMMARY | 2025-03-20 17:04 | XMS_ITS | Patient Health Record ---
Author Organization [facility] Address [address] [place] [address] Care Team Providers Care Semiconductor Equipment Technician Name Role Phone Elida Siddiqui MD Primary Care Provider Marcos Glasgow [phone] Allergies Allergen (clinical drug ingredient) Drug/Non Drug [...] Problem Screening for malignant neoplasm of colon (515093411) Encounter for screening for malignant neoplasm of colon (Z12.11) Active confirmed Problem History of adenomatous polyp of colon (843045795) History of adenomatous polyp of colon (Z86.010) Active confirmed Problem Long-term current use of antiplatelet drug (859190422044437 ) Long-term use of aspirin therapy (Z79.82) Active confirmed Plan Of Treatment Future Test Test Name Order Date COLONOSCOPY 12/14/2011 COLONOSCOPY 06/01/2017 Insurance Providers Payer Name Payer Address Payer Phone Subscriber Number Group Number Insured Name Patient Relationship to Insured Coverage Start Date Coverage End Date MEDICARE OF [place] [address] [place] [address] [id number] GESS, JUAN Self - patient is the insured [employer] [address] [place] [phone] [id number] GESS, JUAN Self - patient is the insured Medical (General) History Medical History History ICD Code NIDDM HTN Hyperlipidemia Denies [place],CVA,Lung disease,renal disease Shingles on the abdominal wall in and 04/2018 Colonoscopy in 2004 with 2 t ubular adenomas removed; Colonoscopy in 12/2011--small hyperplastic polyp, diverticulosis, and internal hemorrhoids Surgical History Surgery Date(Month/Year) Ruptured biceps on right Ear surgery Right carotid endarterectomy in 2008 Rotator cuff tear repair on right arm
--- OUTSIDE RECORDS SUMMARY | 2025-03-20 17:05 | XMS_ITS | Patient Health Record ---
Author Organization [facility] Address [address] [facility] [address] Care Team Providers Care Feed Mill Manager Name Role Phone Elida Siddiqui Primary Care Provider UnavailBrody Rosales Unavailable [phone] Clau Morel Unavailable [phone] Allergies Allergen (clinical drug ingredient) Drug/Non Drug [...] Problem Acquired hammer toe of right foot (27507240149354 05) Other hammer toe(s) (acquired), right foot (M20.41) Active confirmed Problem Type 2 diabetes mellitus with peripheral angiopathy (334628132) Type 2 diabetes mellitus with diabetic peripheral angiopathy without gangrene (E11.51) Active confirmed Problem Acquired hammer toe of left foot (84880028261183 03) Other hammer toe(s) (acquired), left foot (M20.42) Active confirmed Plan Of Treatment Pending Test Test Name Order Date [id number] NAIL, 6 OR MORE 06/19/2021 [id number] SKIN LESIONS, OVER 4 06/19/19 22 Next Appt Details Provider Name:Clau isaac, 04/03/2025 03:00:00 PM, [address] [facility], [place], [address], Insurance Providers Payer Name Payer Address Payer Phone Subscriber Number Group Number Insured Name Patient Relationship to Insured Coverage Start Date Coverage End Date [facility] [employer] Claims [address] [facility] [place] [address] [id number] Deondre Stein Self - patient is the [...]
== END 2025-03-20 12:10 | disposition home or self-care (01) ==
LOC: HO.LAB 12:09
PROVIDERS: PCP Internal Medicine; Visit Provider Internal Medicine Hypertension Specialist
DX: Z23 Encounter for immunization (principal); I50.32 Chronic diastolic (congestive) heart failure; N18.32 Chronic kidney disease, stage 3b
CPT/HCPCS: 36415; 80048; 81001; 82570; 83935; 84156; 90471; 90656

== ENCOUNTER 2025-03-20 12:58 | Outpatient (AMB) | payer MEDICARE, SELFPAY ==
--- NOTE | 2025-03-20 13:30 | AM.OFFVISNUR ---
Intake Visit Reasons: Flu shot Allergies lisinopril Allergy (Unknown, Verified 02/11/25 13:23) Unknown Penicillins (PENICILLINS) Allergy (Unknown, Verified 02/11/25 13:23) UNKNOWN REACTION-CHILDHOOD ALLERGY Office Procedures Flu Questionnaire Does the patient have a severe egg allergy?: No Does the patient have severe life threatening allergies?: No Does the patient have a fever or illness today?: No Has the patient ever had Guillain-Lyman Syndrome?: No Has the patient ever had any past reaction to a flu shot?: No Immunizations Fluarix [id number] (PF) 45 mcg (15 mcg x 3)/0.5 mL IM syringe Performing Provider: Elida Siddiqui MD [facility] Administered by: Sita Devries RN on 03/20/25 13:30 Dose Route Admin Location Dispensed Lot Number Expiration Date NDC Apartment Rental Clerk 0.5 mL IM Left Deltoid 0.5 mL [id number] 11/26/25 42904-742-47 [facility] V[facility] Given Date VIS Provided VIS Publication Date 03/20/25 Single Vaccine 24 Eligibility Eligibility Date Funding Source Not [facility] Eligible 03/20/25 Private Assessment & Plan Assessment & Plan Orders: Orders Influenza [id number] Immunization Today Z23 - Encounter for immunization Coding
== END 2025-03-20 13:40 | disposition home or self-care (01) ==
LOC: HO.HMCH 12:59
PROVIDERS: PCP Internal Medicine; Visit Provider Internal Medicine
DX: Z23 Encounter for immunization (principal)

== ENCOUNTER 2025-03-25 09:34 | Outpatient (AMB) | payer MEDICARE, SELFPAY ==
--- OUTSIDE RECORDS SUMMARY | 2024-02-22 04:00 | XMS_ITS ---
Author Organization [facility] Address [address] [place] [address] Care Team Providers Care Momd Teacher Name Role Phone Elida Siddiqui Primary Care Provider Brody Carmona Unavailable [phone] Clau Morel [phone] Encounters Encounter Location Date Provider Diagnosis [address] [address] 02/22/2024 Clau Morel Plan Of Treatment Next Appt Details Provider Name:Clau isaac, 04/03/2025 03:00:00 PM, [address] [place] [address], [phone], Progress Notes * CASSANDRA Deondre ADOB:1945 (79 yo M)Acc No.[id number]:02/22/2024 Progress Note Patient: Deondre LOPEZ Provider: Jessee Morel DPM :1945 A ge:78 Y S ex:Male Date:02/22/2024 Address:[address] [place] Pcp:Elida Siddiqui Subjective: * Chief Complaints: * [...] 02/22/2024 Generated for Carmine jack/Alessandra/Yue on: 1 10:47 AM EDT
--- OUTSIDE RECORDS SUMMARY | 2025-02-22 06:00 | XMS_ITS ---
Author Organization [facility] Address [address] [place] [address] Care Team Providers Care Relocation Specialist Name Role Phone Elida Siddiqui Primary Care Provider Brody Carmona Unavailable [phone] Clau Morel [phone] Miller Encounters Encounter Location Date Provider Diagnosis [facility] [address] [place] [address] 02/22/2025 Clau Morel Plan Of Treatment Next Appt Details Provider Name:Clau isaac, 04/03/2025 03:00:00 PM, [address] [place], [address], Progress Notes * LORIEYesenia Deondre ADOB:1945 (79 yo M)Acc No.[id number]:02/22/2025 Progress Note Patient: Deondre LOPEZ Provider: Jessee Morel DPM :1945 A ge:79 Y S ex:Male Date:02/22/2025 Address:[address] [place] Pcp:Elida Siddiqui Subjective: * Chief Complaints: * [...] DPM Date: 0 02/22/2025 Generated for Carmine Colon/Yue on: 10:47 AM EDT
[2025-03-25 09:38] VITALS: BP 84/34; PULSE 155; O2SAT 76; BMI 27.9
--- NOTE | 2025-03-25 09:38 | HO.NEPHOV ---
Vital Signs 03/25/25 09:38 03/25/25 09:52 Height 5 ft 6 in Weight 173 lb BMI 27.9 BP 84/34 L 84/40 L Blood Pressure Location Lt brachial Rt brachial Position Sitting Sitting Pulse 155 H Pulse Source Pulse Oximeter Pulse Oximetry (%) 76 L Oxygen Delivery Method Room Air Intake Visit Reasons: [facility] Composite Bond Technician Required: No Accompanied by: Self / Same As Patient Allergies lisinopril Allergy (Unknown, Verified 03/25/25 09:41) Unknown Penicillins (PENICILLINS) Allergy (Unknown, Verified 03/25/25 09:41) UNKNOWN REACTION-CHILDHOOD ALLERGY Medication List - Last Reconciled 03/25/25 by Damián Gillespie MD amiodarone 200 mg PO DAILY apixaban (Eliquis) 5 mg PO BID 30 days atorvastatin 40 mg PO DAILY [AUTO PAP 6-20 cm H2O humidified AIR As directed] cholecalciferol (vitamin D3) 75 mcg PO MOWEFR@1000 cyanocobalamin (vitamin B-12) 2,500 mcg PO DAILY empagliflozin (Jardiance) 10 mg PO DAILY 90 days ezetimibe 10 mg PO DAILY fenofibrate 160 mg PO DAILY fesoterodine ER 4 mg PO DAILY 30 days folic acid 0.4 mg PO DAILY linagliptin (Tradjenta) 5 mg PO DAILY pregabalin 100 mg PO TID 30 days HPI Comments Details: Elderly male with AFib on Eliquis, JITENDRA on CPAP, peripheral arterial disease, coronary artery disease, [id number] diabetes mellitus, CKD stage 3, congestive heart failure with reduced ejection fraction Was recently admitted with acute kidney injury with a serum creatinine of more than 4 mg/dL. Prior to this he was inadvertently taking excessive dose of Lasix. He was supposed to be on 40 mg once a day but he was taking twice a day. During hospitalization diuretics were held he was given IV fluids. Renal function improved in the recent creatinine is 1.9 mg/dL. Currently renal function is close to baseline. He has not on any diuretics. 08/20/24: Overall doing OK; c/o increased urinary frequency ; Nocturia x 3;No dysuria 12/24/24 C/o increased frequency Jardiance has been decreased but he has not seen any improvement 03/25/25 [facility] Medical History Dyspnea on exertion Atrial fibrillation Acute heart failure Atrial fibrillation with RVR Cardiomyopathy Cataracts, bilateral Chronic otitis media Peripheral vascular disease Type 2 diabetes mellitus with hyperglycemia Erectile dysfunction Post herpetic neuralgia COPD (chronic obstructive pulmonary disease) Obstructive sleep apnea Rotator cuff tear, left Carotid stenosis Tubular adenoma of colon Hypertension Hypercholesterolemia PVCs (premature ventricular contractions) NICM (nonischemic cardiomyopathy) CAD (coronary artery disease) Surgical History History of cardiac radiofrequency ablation History of colonoscopy History of cataract surgery History of repair of rotator cuff History of cardiac catheterization History of tonsillectomy History of carotid endarterectomy Family History Father H/O ETOH abuse Hypertension Mother Hypertension Brother Diabetes Brother No problems noted. Sister No problems noted. Sister No problems noted. Social History Household Members: None Housing: House Do you presently have visiting nurse or other home services: No Alcohol intake: current Alcohol intake frequency: holidays/special occasions only Alcohol type: beer Comment: no instruments used. alcohol 2-3 x a week -shot Patient Tobacco Use Status: Never used Tobacco Tobacco use type: Cigarette e-Cigarette/Vaping Use: Never Used Second Hand Smoke Exposure: No Advance Directives Date on File: 11/17/21 service: No Current occupational status: employed Cognitive needs: No Hearing needs: Yes Vision needs: Yes Physical Exam Vital Signs: Last Vital Signs Pulse 155 H 03/25/25 09:38 BP 84/34 L 03/25/25 09:38 Pulse Ox 76 L 03/25/25 09:38 Oxygen Delivery Method Room Air 03/25/25 09:38 BMI result Body Mass Index 27.9 Const General: comfortable Nutritional Appearance: well nourished Orientation/consciousness: patient oriented x3 HEENT Head: No normal to inspection Mouth: moist mucous membranes Neck Neck: Yes supple and Yes no JVD Resp Auscultation: clear to auscultation bilaterally and no rales Cardio Jugular venous distension: no JVD Palpation: no palpable S3 and no palpable S4 Heart sounds: no rubs GI Palpation (GI): Soft to palpation and nontender Percussion: No Fluid wave present General: Yes no CVA tenderness Back/Spine/Pelvis Back: no CVA tenderness Skin General skin exam: no rashes or lesions noted Neuro General: patient oriented x3 Extrem General: No clubbing and Yes pedal edema (Trace) Results Reviewed Nephrology Results: Hgb, (14.0-18.0) 13.3 g/dl L 02/08/25 WBC, (4.8-10.8) 7.1 X10*3/uL 02/08/25 Plt Count, (160-400) 179 X10*3/uL 02/08/25 Sodium, (135-145) 142 mmol/L 03/20/25 Potassium, (3.3-5.1) 4.6 mmol/L 03/20/25 Chloride, (96-108) 108 mmol/L 03/20/25 Carbon Dioxide, (22-29) 29 mmol/L 03/20/25 BUN, (9-16) 28 mg/dL H 03/20/25 Creatinine, (0.5-1.4) 1.74 mg/dL H 03/20/25 Calcium, (8.4-10.2) 9.1 mg/dL 03/20/25 Urine Protein, (Neg-Trace) 30 (1+) mg/dL H 03/20/25 Urine Creatinine 81.40 mg/dL 03/20/25 Assessment & Plan Assessment & Plan (1) CKD (chronic kidney disease) stage 3, GFR 30-59 ml/min: Code(s): N18.30 - Chronic kidney disease, stage 3 unspecified Category: Medical Qualifiers: Chronic kidney disease stage 3 subtype: stage 3b (GFR 30-44) Qualified Code(s): N18.32 - Chronic kidney disease, stage 3b (2) Congestive heart failure: Comment: Preserved ejection fraction Code(s): I50.9 - Heart failure, unspecified Category: Medical Qualifiers: Heart failure chronicity: chronic Heart failure type: diastolic Qualified Code(s): I50.32 - Chronic diastolic (congestive) heart failure (3) Acute kidney injury superimposed on chronic kidney disease: Code(s): N17.9 - Acute kidney failure, unspecified; N18.9 - Chronic kidney disease, unspecified Category: Medical Plan Elderly man with CKD s/p acute kidney injury superimposed on chronic kidney disease. Acute kidney injury was primarily due to hypoperfusion from high dose of diuretics and volume depletion. After holding the diuretics and with cautious hydration renal function improved. At present he appears euvolemic. BP is rather low and asymptomatic continue to hold Lasix Cr stable at 1.7 - at baseline Polyuria : multifactorial ; may be due to the use of SGLT-2 inhibitor as well. f/u with urology Orders: Orders Basic Metabolic Panel 6 Months N18.32 - Chronic kidney disease, stage 3b Complete Blood Count no Diff 6 Months N18.32 - Chronic kidney disease, stage 3b Parathyroid Hormone Intact 6 Months N18.32 - Chronic kidney disease, stage 3b Coding Level of Care Code Est Pt Level 4 (24368) Diagnoses Stage 3b chronic kidney disease N18.32 Chronic kidney disease stage 3 subtype: stage 3b (GFR 30-44) Chronic diastolic congestive heart failure I50.32 Heart failure chronicity: chronic Heart failure type: diastolic Acute kidney injury superimposed on chronic kidney disease N17.9; N18.9
[2025-03-25 09:52] VITALS: BP 84/40
--- OUTSIDE RECORDS SUMMARY | 2025-03-25 10:47 | XMS_ITS | Patient Health Record ---
Author [facility] Address [address] [place] [address] Care Team Providers Care Orthopaedic Physician Assistant Name Role Phone Elida Siddiqui Primary Care Provider UnavailBrody Rosales Unavailable [phone] Clau Morel Unavailable [phone] Allergies Allergen (clinical drug ingredient) Drug/Non Drug [...] Problem Acquired hammer toe of right foot (68691569054983 05) Other hammer toe(s) (acquired), right foot (M20.41) Active confirmed Problem Type 2 diabetes mellitus with peripheral angiopathy (988590653) Type 2 diabetes mellitus with diabetic peripheral angiopathy without gangrene (E11.51) Active confirmed Problem Acquired hammer toe of left foot (74475694851587 03) Other hammer toe(s) (acquired), left foot (M20.42) Active confirmed Plan Of Treatment Pending Test Test Name Order Date [id number] NAIL, 6 OR MORE 06/19/2021 [id number] SKIN LESIONS, OVER 4 06/19/19 22 Next Appt Details Provider Name:Clau isaac, 04/03/2025 03:00:00 PM, [address] [facility], [place], [address], Insurance Providers Payer Name Payer Address Payer Phone Subscriber Number Group Number Insured Name Patient Relationship to Insured Coverage Start Date Coverage End Date [facility] [employer] Claims [address] [facility] [place] [address] [id number] Deondre Stein Self - patient is the [...]
--- OUTSIDE RECORDS SUMMARY | 2025-03-25 10:47 | XMS_ITS | Patient Health Record ---
Author Organization [facility] Address [address] [place] [address] Care Team Providers Care Electric Motor Winders Assembler Name Role Phone Elida Siddiqui MD Primary Care Provider Marcos Glasgow [phone] Allergies Allergen (clinical drug ingredient) Drug/Non Drug [...] Problem Screening for malignant neoplasm of colon (138343281) Encounter for screening for malignant neoplasm of colon (Z12.11) Active confirmed Problem History of adenomatous polyp of colon (846412877) History of adenomatous polyp of colon (Z86.010) Active confirmed Problem Long-term current use of antiplatelet drug (572684403017283 ) Long-term use of aspirin therapy (Z79.82) Active confirmed Plan Of Treatment Future Test Test Name Order Date COLONOSCOPY 12/14/2011 COLONOSCOPY 06/01/2017 Insurance Providers Payer Name Payer Address Payer Phone Subscriber Number Group Number Insured Name Patient Relationship to Insured Coverage Start Date Coverage End Date MEDICARE OF [place] [address] [place] [address] [phone] [id number] GESS, JUAN Self - patient is the insured [employer] [address] [place] [phone] [id number] GESS, JUAN Self - patient is the insured Medical (General) History Medical History History ICD Code NIDDM HTN Hyperlipidemia Denies [place],CVA,Lung disease,renal disease Shingles on the abdominal wall in and 04/2018 Colonoscopy in 2004 with 2 t ubular adenomas removed; Colonoscopy in 12/2011--small hyperplastic polyp, diverticulosis, and internal hemorrhoids Surgical History Surgery Date(Month/Year) Ruptured biceps on right Ear surgery Right carotid endarterectomy in 2008 Rotator cuff tear repair on right arm
== END 2025-03-25 09:56 | disposition home or self-care (01) ==
LOC: HO.HKA 09:34
PROVIDERS: PCP Internal Medicine; Visit Provider Internal Medicine Hypertension Specialist
DX: N18.32 Chronic kidney disease, stage 3b (principal); I50.32 Chronic diastolic (congestive) heart failure; N17.9 Acute kidney failure, unspecified; N18.9 Chronic kidney disease, unspecified
CPT/HCPCS: 99214

== ENCOUNTER → 2025-03-25 09:34 | Outpatient (BNVA) | payer MEDICARE, SELFPAY | PROVIDERS: PCP Internal Medicine; Visit Provider Internal Medicine Hypertension Specialist | DX: I13.0 Hypertensive heart and chronic kidney disease with heart failure and stage 1 through stage 4 chronic kidney disease, or unspecified chronic kidney disease (principal); E11.22 Type 2 diabetes mellitus with diabetic chronic kidney disease; N18.32 Chronic kidney disease, stage 3b; I50.32 Chronic diastolic (congestive) heart failure; Z79.84 Long term (current) use of oral hypoglycemic drugs; Z79.01 Long term (current) use of anticoagulants; N17.9 Acute kidney failure, unspecified; N18.9 Chronic kidney disease, unspecified | CPT/HCPCS: 99212 ==

== ENCOUNTER 2025-04-22 12:06 | Outpatient (REF) | payer MEDICARE, SELFPAY ==
[2025-04-22 14:03] LABS: Appearance Urine Cloudy; Glucose Urine UA >=1000 mg/dL (Negative); PH 7.5 (5.0-9.0); Specific Gravity - Urine 1.025 (1.005-1.025); UMIC TRIGGER UA YES
== END 2025-04-22 12:07 | disposition home or self-care (01) ==
LOC: HO.LAB 12:06
PROVIDERS: PCP Internal Medicine; Visit Provider Urology
DX: R39.15 Urgency of urination (principal); N32.0 Bladder-neck obstruction; R30.0 Dysuria
CPT/HCPCS: 81001; 87086; 87088; 87186

== ENCOUNTER 2025-05-13 09:20 | Outpatient (AMB) | payer MEDICARE, SELFPAY ==
[2025-05-13 09:29] VITALS: BP 140/60; PULSE 66; O2SAT 97; BMI 28.5
--- NOTE | 2025-05-13 09:29 | A.OFFVIS_ITS ---
Vital Signs 05/13/25 09:29 Height 5 ft 6 in Weight 176 lb 5.917 oz BMI 28.5 BP 140/60 H Blood Pressure Location Lt brachial Position Sitting Pulse 66 Pulse Source Pulse Oximeter Pulse Oximetry (%) 97 Oxygen Delivery Method Room Air Intake Visit Reasons: RLD Intake Note: pt is here for follow up, he is stating that the has a feeling of breathing heavier at first when starting cpap. he has a chip machine. Non Destructive Evaluation Technician Required: No Allergies lisinopril Allergy (Unknown, Verified 05/13/25 09:52) Unknown Penicillins (PENICILLINS) Allergy (Unknown, Verified 05/13/25 09:52) UNKNOWN REACTION-CHILDHOOD ALLERGY Medication List - Last Reconciled 05/13/25 by Leelee Willis MD amiodarone 200 mg PO DAILY apixaban (Eliquis) 5 mg PO BID 30 days atorvastatin 40 mg PO DAILY [AUTO PAP 6-20 cm H2O humidified AIR As directed] cholecalciferol (vitamin D3) 75 mcg PO MOWEFR@1000 cyanocobalamin (vitamin B-12) 2,500 mcg PO DAILY empagliflozin (Jardiance) 10 mg PO DAILY 90 days ezetimibe 10 mg PO DAILY fenofibrate 160 mg PO DAILY folic acid 0.4 mg PO DAILY fosfomycin tromethamine 3 grams PO Q3D linagliptin (Tradjenta) 5 mg PO DAILY mirabegron ER (Myrbetriq) 25 mg PO DAILY pregabalin 100 mg PO TID 30 days Do you need a note to return to daycare/school/sports/work: No HPI HPI RLD: Details: THIS 79 YEARS OLD VERY PLEASANT GENTLEMAN IS HERE FOR 6 MONTHS FOLLOW-UP. FOR HIS OBSTRUCTIVE SLEEP APNEA HE USES CPAP VERY REGULARLY EVERY NIGHT. MOSTLY FOR 6 HOURS OR MORE BUT SOME NIGHTS ONLY FOR 4 HOURS. HE HAS NO ISSUE WITH THE USE OF CPAP. IS AN OLD MODEL AND DOES NOT TRANSMIT INFORMATION FOR COMPLIANCE WHICH WE HAVE TO GET FROM DME SUPPLIER. BREATHING HAS BEEN OKAY HE DOES NOT HAVE A NEED TO USE THE ALBUTEROL BUT KEEPS IT ON HAND. MILD TO MODERATE COUGH ESPECIALLY AT NIGHT IS MAINLY BECAUSE OF DRYNESS OF THE AIR. FOR[facility]LY [facility], LATER [facility] Medical History Dyspnea on exertion Atrial fibrillation Acute heart failure Atrial fibrillation with RVR Cardiomyopathy Cataracts, bilateral Chronic otitis media Peripheral vascular disease Type 2 diabetes mellitus with hyperglycemia Erectile dysfunction Post herpetic neuralgia COPD (chronic obstructive pulmonary disease) Obstructive sleep apnea Rotator cuff tear, left Carotid stenosis Tubular adenoma of colon Hypertension Hypercholesterolemia PVCs (premature ventricular contractions) NICM (nonischemic cardiomyopathy) CAD (coronary artery disease) Surgical History History of cardiac radiofrequency ablation History of colonoscopy History of cataract surgery History of repair of rotator cuff History of cardiac catheterization History of tonsillectomy History of carotid endarterectomy Family History Father H/O ETOH abuse Hypertension Mother Hypertension Brother Diabetes Brother No problems noted. Sister No problems noted. Sister No problems noted. Social History Household Members: None Housing: House Do you presently have visiting nurse or other home services: No Alcohol intake: current Alcohol intake frequency: holidays/special occasions only Alcohol type: beer Comment: no instruments used. alcohol 2-3 x a week -shot Patient Tobacco Use Status: Never used Tobacco Tobacco use type: Cigarette e-Cigarette/Vaping Use: Never Used Second Hand Smoke Exposure: No Advance Directives Date on File: 11/17/21 service: No Current occupational status: employed Cognitive needs: No Hearing needs: Yes Vision needs: Yes Review of Systems Const All systems reviewed & are unremarkable except as noted in HPI and below Eyes Reports no additional complaints ENT Reports no additional complaints Card Denies chest pain, Denies irregular heart rhythm, Reports leg edema (Mild) and Reports dyspnea on exertion (Moderate) Resp Denies cough, Reports dyspnea on exertion (Moderate) and Denies wheezing GI Reports no additional complaints Reports no additional complaints Musc Reports no additional complaints Skin/Breast Reports system reviewed and no additional complaints, except as documented Neuro Reports no additional complaints Psych Reports no additional complaints Endo Reports no additional complaints Eliseo/Lymph Reports no additional complaints Aller/Immun Denies wheezing Physical Exam Vital Signs: Last Vital Signs Pulse 66 05/13/25 09:29 BP 140/60 H 05/13/25 09:29 Pulse Ox 97 05/13/25 09:29 Oxygen Delivery Method Room Air 05/13/25 09:29 BMI result Body Mass Index 28.5 Const General: healthy appearing (Except for being overweight), comfortable, no acute distress, alert and awake Orientation/consciousness: patient oriented x3 HEENT Head: Yes normal to inspection General nose exam: No nasal polyps present and No nasal discharge present Face and sinus: Yes sinuses nontender Mouth: oropharynx normal Throat: Yes posterior oropharynx normal Eyes General: appearance normal, both eyes and all related structures Neck Neck: Yes normal visual inspection, Yes no lymphadenopathy, Yes trachea midline and Yes no JVD Thyroid: Thyroid normal Chest Chest palpation & inspection: normal inspection of the chest, normal palpation of entire chest wall and no tenderness Resp Other: Percussion note resonant. Breath sounds are equal on both sides, slightly diminished over the basilar areas. No wheezes or crepitations are heard. Cardio Palpation: normal PMI Rate: regular rate Rhythm: regular rhythm Heart sounds: no gallops and no murmurs Peripheral pulses: Peripheral pulses 2+ throughout GI Palpation (GI): Soft to palpation, nontender, No hepatosplenomegaly present, no masses and Other GI palpation findings present (Abdomen is moderately protuberant.) Auscultation: normal bowel sounds Back/Spine/Pelvis Thoracic/Lumbar Spine: thoracic and lumbar spine normal to inspection Skin General skin exam: no rashes or lesions noted Neuro General: patient oriented x3 and no focal motor deficits Cranial nerves: Yes CN's II-XII intact bilaterally Extrem General: Yes normal to inspection, Yes no calf tenderness and Yes edema (1+ pitting edema of both legs) Psych Appearance: grossly normal and well kempt Speech and movement: Normal speech and movement present Results Reviewed Results Reviewed: COMPLIANCE REPORT NOT AVAILABLE. AWAITING TO GET THE REPORT FROM [facility]. Assessment & Plan Assessment & Plan (1) COPD (chronic obstructive pulmonary disease): Comment: PATIENT HAS ONLY BORDERLINE OBSTRUCTIVE AIRWAY DISORDER AND DOES NOT REQUIRE TO USE ANY BRONCHODILATOR INHALERS. Code(s): J44.9 - Chronic obstructive pulmonary disease, unspecified Category: Medical Qualifiers: COPD type: emphysema Emphysema type: unspecified Qualified Code(s): J43.9 - Emphysema, unspecified Plan: KEEP ALBUTEROL HFA ON HAND AND USE P.R.N. IF THERE IS SOME WHEEZING SUSTAINED BOUTS OF COUGH. (2) JITENDRA on CPAP: Comment: Known case of obstructive sleep apnea since 2017. Has been using CPAP very regularly all this time. He does have new CPAP device however this is still not transmitting the data for compliance. He has to send the chip, to DME. According to his statement he uses very regularly and he is benefiting. Code(s): G47.33 - Obstructive sleep apnea (adult) (pediatric); Z99.89 - Dependence on other enabling machines and devices Category: Medical Plan: CONTINUE TO USE THE CPAP REGULARLY. MAKE SURE TO PUT THE DISTILLED WATER IN THE HUMIDIFICATION TANK EVERY NIGHT (3) Restrictive lung disease: Comment: He has moderate degree of restrictive lung disease, Secondary to, weight gain,( especially abdominal obesity ) and some degree of bibasilar atelectasis. Code(s): J98.4 - Other disorders of lung Category: Medical Plan: CONTINUE DOING DEEP BREATHING EXERCISES AT LEAST 3 TIMES A DAY Coding Level of Care Code Est Pt Level 3 (16565) Diagnoses Pulmonary emphysema, unspecified emphysema type J43.9 COPD type: emphysema Emphysema type: unspecified JITENDRA on CPAP G47.33; Z99.89 Restrictive lung disease J98.4
== END 2025-05-13 09:55 | disposition home or self-care (01) ==
LOC: HO.HPS 09:20
PROVIDERS: PCP Internal Medicine; Visit Provider Internal Medicine
DX: J43.9 Emphysema, unspecified (principal); G47.33 Obstructive sleep apnea (adult) (pediatric); Z99.89 Dependence on other enabling machines and devices; J98.4 Other disorders of lung
CPT/HCPCS: 99213

== ENCOUNTER → 2025-05-13 09:20 | Outpatient (BNVA) | payer MEDICARE, SELFPAY | PROVIDERS: PCP Internal Medicine; Visit Provider Internal Medicine | DX: G47.33 Obstructive sleep apnea (adult) (pediatric) (principal); J43.9 Emphysema, unspecified; J98.4 Other disorders of lung; Z99.89 Dependence on other enabling machines and devices | CPT/HCPCS: 99212 ==

== ENCOUNTER 2025-05-21 07:19 | Outpatient (REF) | payer MEDICARE, SELFPAY ==
--- OUTSIDE RECORDS SUMMARY | 2024-02-22 03:00 | XMS_ITS ---
Author Organization [facility] Address [address] [place] [address] Care Team Providers Care Probation Agent Name Role Phone Elida Siddiqui Primary Care Provider Brody Carmona Unavailable [phone] Clau Morel [phone] Encounters Encounter Location Date Provider Diagnosis [address] [address] 02/22/2024 Clau Morel Plan Of Treatment Next Appt Details Provider Name:Clau isaac, 04/04/2026 09:00:00 AM, [address] [place] [address], [phone], Progress Notes * CASSANDRA Deondre ADOB:1945 (79 yo M)Acc No.[id number]:02/22/2024 Progress Note Patient: Deondre LOPEZ Provider: Jessee Morel DPM :1945 A ge:78 Y S ex:Male Date:02/22/2024 Address[place] [place] Pcp:Elida Siddiqui Subjective: * Chief Complaints: * * Medical History: Objective: * Vitals: Assessment: Plan: * Treatment: * Images: * The named appointment provid er may or may not be the originator of this progress note, and it is not deemed complete until electronically signed by the appointment provider. Sign off status: Pending * Provider: Jessee Morel, DPM Date: 0 02/22/2024 Generated for Carmine jack/Alessandra/Yue on: 1 07/22/2024 07:22 AM EST
--- OUTSIDE RECORDS SUMMARY | 2025-02-22 05:00 | XMS_ITS ---
Author Organization [facility] Address [address] [place] [address] Care Team Providers Care Lotteries Agent Name Role Phone Elida Siddiqui Primary Care Provider Brody Carmona Unavailable [phone] Clau Morel [phone] Miller Encounters Encounter Location Date Provider Diagnosis [facility] [address] [place] [address] 02/22/2025 Clau Morel Plan Of Treatment Next Appt Details Provider Name:Clau isaac, 04/04/2026 09:00:00 AM, [address] [place], [address], Progress Notes * LORIEJazmín Deondre ADOB:1945 (79 yo M)Acc No.[id number]:02/22/2025 Progress Note Patient: Deondre LOPEZ Provider: Jessee Morel DPM :1945 A ge:79 Y S ex:Male Date:02/22/2025 Address[place] [id number] Pcp:Elida Siddiqui Subjective: * Chief Complaints: * [address] Miller[address] * Medical History: Objective: * Vitals: Assessment: Plan: * Treatment: * Images: * The named appointment provid er may or may not be the originator of this progress note, and it is not deemed complete until electronically signed by the appointment provider. Sign off status: Pending * Provider: Jessee Morel DPM Date: 0 02/22/2025 Generated for Carmine Davis on: 07/22/2024 07:22 AM EST
--- OUTSIDE RECORDS SUMMARY | 2025-05-21 07:23 | XMS_ITS | Patient Health Record ---
Author Organization [facility] Address [address] [place] [address] Care Team Providers Care Skip Tender Name Role Phone Elida Siddiqui Primary Care Provider UnavailBrody Rosales Unavailable [phone] Clau Morel Unavailable [phone] Allergies Allergen (clinical drug ingredient) Drug/Non Drug Allergy documented on EMR Reaction Allergy Type Onset Date Status Penicillin Unknown Drug Allergy Active lisinopril Lisinopril Unknown Drug Allergy Activ e Results Component Value Reference Range Notes HEMOGLOBIN A1C (GLYCOHEMOGLO BIN) Reviewed date:04/03/2025 02:51:08 PM Interpretation: Performing Lab: Notes/Report: HEMOGLOBIN A1C % (HH) 9.2 Reason For Referral No Information Medications Medication SIG (Take, Route, Frequency, Duration) Notes Start Date End Date Status Diovan 40 MG 3 tablets Orally Twi ce a day; Duration: 30 day(s) Not-Dar ing Myrbetriq 25 MG 1 tablet Orally Once a day Active Ciclopirox Olamine 0.77 % 1 application Externally Twice a day; Duration: 30 days Not-Taking Pioglitazone HCl 30 MG 1 tablet Orally O nce a day; Duration: 30 day(s) Not-Dar ing Simvastatin 40 MG 1 tablet in the even ing Orally Once a day; Duration: 30 day(s) Not-Taking metFORMIN HCl 1000 MG 1 tablet with a me al Orally Once a day; Duration: 30 day(s) Not-Taking Extra Depth Orthopedic Shoes (1 Pair) with Customized Heat Molded Multidensity Innersoles (3 Pair) as directed Dx: NIDDM (E11.9), Hammertoe Foot Deformity (M20.41,M20.42), Preulcerative Skin Lesion(s) (L85.1) 02/16/2023 Active Pregabalin 50 MG 1 capsule Orally Twi ce a day Not-Taking Clopidogrel Bisulfate 75 MG 1 tablet Orally Once a day; Duration: 30 day(s) Not-Dar ing Extra Depth Orthopedic Shoes (1 Pair) with Customized Heat Molded Multidensity Innersoles (3 Pair) as directed Dx: NIDDM/PVD (E11.59), Hammertoe Foot Deformity (M20.41,M20.42), Preulcerative Skin Lesion(s) (L85.1) 06/19/2021 Active Vitamin D 1000 UNIT 1 capsule Orally Onc e a day; Duration: 30 day(s) Active Vitamin B12 Active Atorvastatin Calcium 40 MG 1 tablet Orally Once a day; Duration: 30 day(s) Active amLODIPine Besylate 5 MG 1 tablet Orally Once a day; Duration: 30 day(s) Active Folic Acid 1 MG 1 tablet Orally Once a day Active Fenofibrate 160 MG 1 tablet Orally Once a day; Duration: 30 day(s) Active Tradjenta 5 MG 1 tablet Orally Once a day Active Aspirin 81 MG 1 tablet Orally Once a day; Duration: 30 day(s) Not-Dar ing Ezetimibe 10 MG 1 tablet Orally Once a day Active Actos 15 MG 1 tablet Orally Once a day; Duration: 30 day(s) Not-Dar ing eliquis 5 mg Active Extra Depth Orthopedic Shoes, (1) Pair With (3) Pair Custom Heat Molded Multidensity Innersoles Dx: NIDDM/PVD(E11.51), Hammertoe Foot Deformity(M20.41,M20.42) , Preulcerative Skin Lesion(s)(L85.1) Wear Daily; Duration: 365 days Active Jardiance 25 MG 1 tablet Orally Once a day Active Janumet 50-500 MG 1 tablet with meals Orally Twice a day; Duration: 30 day(s) Not-Taking Lipitor 10 MG 1 tablet Orally Once a day; Duration: 30 day(s) Not-Dar ing Immunizations Vaccine Route Administration Date Status Comme nts Influenza Unknown 03/30/2021 Administered Influenza Unknown 01/28/2022 Administered Influenza Unknown 01/28/2025 Administered COVID-19 Pfizer BioNTech Vaccine Unknown 03/16/2021 Administered 1st 07/11/20 2nd 08/11/20 Social History Tobacco Use: Social History Observation Description Date Details (start date - stop date) Never Smoker NA - NA Alcohol Screen Question Answer Notes Did you have a drink contain ing alcohol in the past year? Yes How often did you have a dri nk containing alcohol in the past year? 2 to 4 times a month (2 points) Points 2 Interpretation Negative Tobacco use other than smoking: Question Answer Notes Are you an other tobacco user? No Tobacco Control (Standard) Question Answer Notes Tobacco use: Nonsmoker AUDIT-C (Standard) Question Answer Notes Did you have a drink containing alcohol in the p ast year? No Points 0 Interpretation Negative Problems Problem Type SNOMED Code ICD Code Onset Dates Problem Status W/U Status Risk Notes Problem Acquired hammer toe of right foot (03503458443221 05) Other hammer toe(s) (acquired), right foot (M20.41) Active confirmed Problem Type 2 diabetes mellitus with peripheral angiopathy (140473042) Type 2 diabetes mellitus with diabetic peripheral angiopathy without gangrene (E11.51) Active confirmed Problem Acquired hammer toe of left foot (99143485903356 03) Other hammer toe(s) (acquired), left foot (M20.42) Active confirmed Vital Signs Blood pressure diastolic 73 mm Hg 04/03/2025 Height 5 ft 6 in in 04/03/2025 Blood pressure systolic 120 mm Hg 04/03/2025 Weight 180 lbs 04/03/2025 BMI 29.05 kg/m2 04/03/2025 Encounters Encounter Location Date Provider Diagnosis [facility] [address] [address] 04/03/2025 Clau Morel Other hammer toe(s) (acquired), right foot M20.41 ; Other hammer toe(s) (acquired), left foot M20.42 and Type 2 diabetes mellitus with diabetic peripheral angiopathy without gangrene E11.51 Assessments Encounter Date Diagnosis (ICD Code) Assessment Notes Treatment Notes Treatment Clinical Notes Section Notes 04/03/2025 Other hammer toe(s) (acquired), right foot (ICD-10 - M20.41) Patient Educated with: DIABETIC FOOT CARE INSTRUCTIONS.p df (DIABETIC FOOT CARE INSTRUCTIONS.p df) 04/03/2025 Other hammer toe(s) (acquired), left foot (ICD-10 - M20.42) 04/03/2025 Type 2 diabetes mellitus with diabetic peripheral angiopathy without gangrene (ICD-10 - E11.51) Plan Of Treatment Pending Test Test Name Order Date [id number] NAIL, 6 OR MORE 06/19/2021 [id number] SKIN LESIONS, OVER 4 06/19/19 22 Next Appt Details Provider Name:Clau isaac, 04/04/2026 09:00:00 AM, [address] [place], [address], Insurance Providers Payer Name Payer Address Payer Phone Subscriber Number Group Number Insured Name Patient Relationship to Insured Coverage Start Date Coverage End Date AARP Medicare Complete [address] [address] [place], [place] [id number] Deondre Stein Self - patient is the [...]
--- OUTSIDE RECORDS SUMMARY | 2025-05-21 07:23 | XMS_ITS | Patient Health Record ---
Author Organization [facility] Address [address] [place] [address] Care Team Providers Care Negative Stripper Name Role Phone Elida Siddiqui MD Primary Care Provider Marcos Glasgow [phone] Allergies Allergen (clinical drug ingredient) Drug/Non Drug Allergy documented on EMR Reaction Allergy Type Onset Date Status PCN (uncoded) Unknown Allergy Active Reason For Referral No Information Medications Medication SIG (Take, Route, Frequency, Duration) Notes Start Date End Date Status Pioglitazone HCl 30 MG Tablet 1 tablet Orally Once a day Active metFORMIN HCl 1000 MG Tablet 1 tablet with meals Orally Twice a day Active Fenofibrate 160 MG Tablet 1 tablet Orall y Once a day Active Losartan Potassium 25 MG Tablet 1 tablet Orally Once a day Active Gabapentin 100 MG Capsule 1 capsule Oral ly Once a day Active Atorvastatin Calcium 40 MG Tablet 1 tablet Orally Once a day Active Aspir-81 81 MG Tablet Delayed Release 1 tablet Orally Once a day Active Folic Acid 400 MCG Tablet 1 tablet Orall y Once a day Active Vitamin D3 5000 UNIT/ML Liquid 0.1 ml Orally Once a day Act heather Vitamin E 1000 UNIT Capsule 1 capsule Or ally Once a day Active Immunizations Vaccine Route Administration Date Status Comme nts Flu vaccine no Preserv 3 and > Unknown 03/22/2017 Admin istered Social History Social History Additional Details Category Social Info Options Details Miscellaneous: Marital status: Occupation: [employer] and [employer] 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 Section Notes: Nonsmoker; no significant al cohol Nonsmoker; no significant al cohol Problems Problem Type SNOMED Code ICD Code Onset Dates Problem Status W/U Status Risk Notes Problem Screening for malignant neoplasm of colon (897008439) Encounter for screening for malignant neoplasm of colon (Z12.11) Active confirmed Problem History of adenomatous polyp of colon (851826436) History of adenomatous polyp of colon (Z86.010) Active confirmed Problem Long-term current use of antiplatelet drug (563510951739176 ) Long-term use of aspirin therapy (Z79.82) Active confirmed Plan Of Treatment Future Test Test Name Order Date COLONOSCOPY 12/14/2011 COLONOSCOPY 06/01/2017 Insurance Providers Payer Name Payer Address Payer Phone Subscriber Number Group Number Insured Name Patient Relationship to Insured Coverage Start Date Coverage End Date MEDICARE OF [place] [address] [place] [address] [phone] [id number] GESS, JUAN Self - patient is the insured [facility] [address] [place] [phone] [id number] GESS, JUAN Self - patient is the insured Medical (General) History Medical History History ICD Code NIDDM HTN Hyperlipidemia Denies [place],CVA,Lung disease,renal disease Shingles on the abdominal wall in and 04/2018 Colonoscopy in 2004 with 2 t ubular adenomas removed; Colonoscopy in 12/2011--small hyperplastic polyp, diverticulosis, and internal hemorrhoids Surgical History Surgery Date(Month/Year) Ruptured biceps on right Ear surgery Right carotid endarterectomy in 2008 Rotator cuff tear repair on right arm
[2025-05-21 08:15] LABS: Alanine Aminotransferase 33 U/L (0-40); Albumin Level 4.2 g/dL (3.5-5.0); Alkaline Phosphatase 90 U/L (39-117); Anion Gap 12 (12-20); Aspartate Amino Transferase 50 U/L (5-37); Blood Urea Nitrogen 31 mg/dL (9-16); Calcium 9.6 mg/dL (8.4-10.2); Carbon Dioxide 28 mmol/L (22-29); Chloride 107 mmol/L (96-108); Estimated Glomerular Filt Rate 43; Potassium 4.3 mmol/L (3.3-5.1); Sodium 143 mmol/L (135-145); Total Protein 6.5 g/dL (6.5-8.0)
== END 2025-05-21 07:20 | disposition home or self-care (01) ==
LOC: HO.LAB 07:19
PROVIDERS: PCP Internal Medicine; Visit Provider Internal Medicine
DX: N18.32 Chronic kidney disease, stage 3b (principal); Z13.1 Encounter for screening for diabetes mellitus
CPT/HCPCS: 36415; 80053; 83036

== ENCOUNTER 2025-05-28 15:08 | Outpatient (REF) | payer SELFPAY ==
--- OUTSIDE RECORDS SUMMARY | 2024-02-22 03:00 | XMS_ITS ---
Author Organization [facility] Address [address] [place] [address] Care Team Providers Care Loan Manager Name Role Phone Elida Siddiqui Primary Care Provider Brody Carmona Unavailable [phone] Clau Morel [phone] Encounters Encounter Location Date Provider Diagnosis [address] [address] 02/22/2024 Clau Morel Plan Of Treatment Next Appt Details Provider Name:Clau isaac, 04/04/2026 09:00:00 AM, [address] [place] [address], [phone], Progress Notes * Deondre TRUJILLO ADOB:1945 (79 yo M)Acc No.[id number]:02/22/2024 Progress Note Patient: Deondre LOPEZ Provider: Jessee Morel DPM :1945 A ge:78 Y S ex:Male Date:02/22/2024 Address:[address] [place] Pcp:Elida Siddiqui Subjective: * Chief Complaints: * [...] 02/22/2024 Generated for Carmine jack/Alessandra/Yue on: 1 06:37 PM EST
--- OUTSIDE RECORDS SUMMARY | 2025-02-22 05:00 | XMS_ITS ---
Author Organization [facility] Address [address] [place] [address] Care Team Providers Care Branch Chief Name Role Phone Elida Siddiqui Primary Care Provider Brody Carmona Unavailable [phone] Clau Morel [phone] Miller Encounters Encounter Location Date Provider Diagnosis [facility] [address] [place] [address] 02/22/2025 Clau Morel Plan Of Treatment Next Appt Details Provider Name:Clau isaac, 04/04/2026 09:00:00 AM, [address] [place], [address], Progress Notes * LORIEJazmín Deondre ADOB:1945 (79 yo M)Acc No.[id number]:02/22/2025 Progress Note Patient: Deondre LOPEZ Provider: Jessee Morel DPM :1945 A ge:79 Y S ex:Male Date:02/22/2025 Address:[address] [id number] Pcp:Elida Siddiqui Subjective: * Chief Complaints: * [...] 0 02/22/2025 Generated for Carmine Davis on: 06:36 PM EST
--- OUTSIDE RECORDS SUMMARY | 2025-05-28 18:37 | XMS_ITS | Patient Health Record ---
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 Section Notes: Nonsmoker; no significant al cohol Nonsmoker; no significant al cohol Problems Problem Type SNOMED Code ICD Code Onset Dates Problem Status W/U Status Risk Notes Problem Information temporarily unavailable Encounter for screening for malignant neoplasm of colon (Z12.11) Active confirmed Problem Information temporarily unavailable History of adenomatous polyp of colon (Z86.010) Active confirmed Problem Information temporarily unavailable Long-term use of aspirin therapy (Z79.82) Active confirmed Plan Of Treatment Future Test Test Name Order Date COLONOSCOPY 12/14/2011 COLONOSCOPY 06/01/2017 Insurance Providers Payer Name Payer Address Payer Phone Subscriber Number Group Number Insured Name Patient Relationship to Insured Coverage Start Date Coverage End Date MEDICARE OF [place] [address] [place] [address] [phone] [id number] GESJazmín JUAN Self - patient is the insured [place] [employer] [address] [place] [phone] [id number] GESS, JUAN Self - patient is the insured Medical (General) History Medical History History ICD Code NIDDM HTN Hyperlipidemia Denies HI,CVA,Lung disease,renal disease Shingles on the abdominal wall in and 04/2018 Colonoscopy in 2004 with 2 t ubular adenomas removed; Colonoscopy in 12/2011--small hyperplastic polyp, diverticulosis, and internal hemorrhoids Surgical History Surgery Date(Month/Year) Ruptured biceps on right Ear surgery Right carotid endarterectomy in 2008 Rotator cuff tear repair on right arm
--- OUTSIDE RECORDS SUMMARY | 2025-05-28 18:37 | XMS_ITS | Patient Health Record ---
[facility] Address [address] [place] [address] Care Team Providers Care Airport Location Manager Name Role Phone Elida Siddiqui Primary Care Provider UnavailBrody Rosales Unavailable [phone] Clau Morel Unavailable [phone] Allergies Allergen (clinical drug ingredient) Drug/Non Drug [...] Twi ce a day; Duration: 30 day(s) Not-Adr ing Myrbetriq 25 MG 1 tablet Orally [...] Problem Acquired hammer toe of right foot ([id number] 05) Other hammer toe(s) (acquired), right foot (M20.41) Active confirmed Problem Type 2 diabetes mellitus with peripheral angiopathy (269374151) Type 2 diabetes mellitus with diabetic peripheral angiopathy without gangrene (E11.51) Active confirmed Problem Acquired hammer toe of left foot ([id number] 03) Other hammer toe(s) (acquired), left foot (M20.42) Active confirmed Vital Signs Blood pressure diastolic 73 mm Hg 04/03/2025 Height 5 ft 6 in in 04/03/2025 Blood pressure systolic 120 mm Hg 04/03/2025 Weight 180 lbs 04/03/2025 BMI 29.05 kg/m2 04/03/2025 Encounters Encounter Location Date Provider Diagnosis [facility] [address] [address] 04/03/2025 Clau Morel Other hammer toe(s) (acquired), [...] Treatment Pending Test Test Name Order Date [id number] NAIL, 6 OR MORE 06/19/2021 [id number] SKIN LESIONS, OVER 4 06/19/19 22 Next Appt Details Provider Name:Clau isaac, 04/04/2026 09:00:00 AM, [address] [place], [address], Insurance Providers Payer Name Payer Address Payer Phone Subscriber Number Group Number Insured Name Patient Relationship to Insured Coverage Start Date Coverage End Date [employer] Medicare Complete [address] [address] [place], [place] [id number] Deondre Stein Self - patient is the [...]
== END 2025-05-28 15:09 | disposition home or self-care (01) ==
LOC: HO.HAP 15:08
PROVIDERS: Visit Provider Internal Medicine
DX: Z46.1 Encounter for fitting and adjustment of hearing aid (principal)
CPT/HCPCS: 92592

== ENCOUNTER 2025-05-28 15:24 | Outpatient (AMB) | payer MEDICARE, SELFPAY ==
[2025-05-28 15:46] VITALS: BP 128/62; PULSE 65; O2SAT 98; BMI 28.2
--- NOTE | 2025-05-28 15:46 | A.OFFPC_ITS ---
Vital Signs 05/28/25 15:46 Height 5 ft 6 in Weight 175 lb BMI 28.2 BP 128/62 Blood Pressure Location Lt brachial Position Sitting Pulse 65 Pulse Source Pulse Oximeter Pulse Oximetry (%) 98 Oxygen Delivery Method Room Air Intake Visit Reasons: 3 month f/u Allergies lisinopril Allergy (Unknown, Verified 05/28/25 15:47) Unknown Penicillins (PENICILLINS) Allergy (Unknown, Verified 05/28/25 15:47) UNKNOWN REACTION-CHILDHOOD ALLERGY Medication List - Last Reconciled 05/28/25 by Elida Siddiqui MD amiodarone 200 mg PO DAILY apixaban (Eliquis) 5 mg PO BID 30 days atorvastatin 40 mg PO DAILY [AUTO PAP 6-20 cm H2O humidified AIR As directed] cholecalciferol (vitamin D3) 75 mcg PO MOWEFR@1000 cyanocobalamin (vitamin B-12) 2,500 mcg PO DAILY empagliflozin (Jardiance) 10 mg PO DAILY 90 days ezetimibe 10 mg PO DAILY fenofibrate 160 mg PO DAILY folic acid 0.4 mg PO DAILY fosfomycin tromethamine 3 grams PO Q3D linagliptin (Tradjenta) 5 mg PO DAILY mirabegron ER (Myrbetriq) 25 mg PO DAILY pregabalin 100 mg PO TID 30 days Tobacco use date assessed: 07/20/24 Fall risk assessment: No Falls in past year Last assessed Fall Risk: 05/28/25 Dental Screening Dental Screen Date: 07/20/24 HPI 3 month f/u HPI Details has seen EP studies [facility] Medical History Dyspnea on exertion Atrial fibrillation Acute heart failure Atrial fibrillation with RVR Cardiomyopathy Cataracts, bilateral Chronic otitis media Peripheral vascular disease Type 2 diabetes mellitus with hyperglycemia Erectile dysfunction Post herpetic neuralgia COPD (chronic obstructive pulmonary disease) Obstructive sleep apnea Rotator cuff tear, left Carotid stenosis Tubular adenoma of colon Hypertension Hypercholesterolemia PVCs (premature ventricular contractions) NICM (nonischemic cardiomyopathy) CAD (coronary artery disease) Surgical History History of cardiac radiofrequency ablation History of colonoscopy History of cataract surgery History of repair of rotator cuff History of cardiac catheterization History of tonsillectomy History of carotid endarterectomy Family History Father H/O ETOH abuse Hypertension Mother Hypertension Brother Diabetes Brother No problems noted. Sister No problems noted. Sister No problems noted. Social History Household Members: None Housing: House Do you presently have visiting nurse or other home services: No Alcohol intake: current Alcohol intake frequency: holidays/special occasions only Alcohol type: beer Comment: no instruments used. alcohol 2-3 x a week -shot Patient Tobacco Use Status: Never used Tobacco Tobacco use type: Cigarette e-Cigarette/Vaping Use: Never Used Second Hand Smoke Exposure: No Advance Directives Date on File: 11/17/21 service: No Current occupational status: employed Cognitive needs: No Hearing needs: Yes Vision needs: Yes Questionnaire Thrive Questionnaire Date Thrive assessed: 07/20/24 RENETTA-7 AMB Questionnaire RENETTA-7 Date RENETTA - 7 assessed: 07/20/24 Source: Developed by Drs. Marcos Phan, Holley Encinas, Tk isaac nd colleagues, with an educational deonte from [employer]. Physical exam (Primary Care) Vital Signs: Last Vital Signs Pulse 65 05/28/25 15:46 BP 128/62 05/28/25 15:46 Pulse Ox 98 05/28/25 15:46 Oxygen Delivery Method Room Air 05/28/25 15:46 BMI result Body Mass Index 28.2 Tobacco/Smoking Status: Tobacco use Status Tobacco use date assessed 07/20/24 05/28/25 15:52 Patient Tobacco Use Status Never used Tobacco 05/28/25 15:52 Tobacco use type Cigarette 05/28/25 15:52 e-Cigarette/Vaping Use Never Used 05/28/25 15:52 Thrive Assessment: Date of Thrive Assessment Date Thrive assessed 07/20/24 05/28/25 15:52 Const General: alert; No acute distress Eyes Conjunctivae: conjunctivae normal Resp Auscultation: clear to auscultation bilaterally Cardio Rate: regular rate Rhythm: regular rhythm GI Inspection: Yes normal to inspection Extrem General: Yes normal to inspection and No edema Coding Level of Care Code Est Pt Level 4 (24898) Add On Problem Visit Only Diagnoses Chronic diastolic congestive heart failure I50.32 Heart failure type: diastolic Heart failure chronicity: chronic Coronary artery disease involving [place] coronary artery of [place] heart without angina pectoris I25.10 Coronary Disease-Associated Artery/Lesion type: [place] artery [place] vs. transplanted heart: [place] heart Associated angina: without angina PAF (paroxysmal atrial fibrillation) I48.0 Hypercholesterolemia E78.00 Type 2 diabetes mellitus with hyperglycemia, without long-term current use of insulin E11.65 Diabetes mellitus intermodal dispatcher insulin use: without intermodal dispatcher use Stage 3b chronic kidney disease N18.32 Chronic kidney disease stage 3 subtype: stage 3b (GFR 30-44) Pulmonary emphysema, unspecified emphysema type J43.9 COPD type: emphysema Emphysema type: unspecified JITENDRA on CPAP G47.33; Z99.89 Assessment & Plan Assessment & Plan (1) Congestive heart failure: Comment: Preserved ejection fraction Code(s): I50.9 - Heart failure, unspecified Category: Medical Qualifiers: Heart failure type: diastolic Heart failure chronicity: chronic Qualified Code(s): I50.32 - Chronic diastolic (congestive) heart failure Plan: Continuing with diuretics as needed only (2) CAD (coronary artery disease): Code(s): I25.10 - Atherosclerotic heart disease of [place] coronary artery without angina pectoris Category: Medical Qualifiers: Coronary Disease-Associated Artery/Lesion type: [place] artery [place] vs. transplanted heart: [place] heart Associated angina: without angina Qualified Code(s): I25.10 - Atherosclerotic heart disease of [place] coronary artery without angina pectoris Plan: Control the cholesterol, weight, blood pressure, diabetes on anticoagulation with Eliquis (3) PAF (paroxysmal atrial fibrillation): Comment: Status post cardioversion Code(s): I48.0 - Paroxysmal atrial fibrillation Category: Medical Plan: Continuing the anticoagulation and amiodarone. Be due to conduction issues cardiology has referred patient for electrophysiology question of ablation or pacemaker (4) Hypercholesterolemia: Code(s): E78.00 - Pure hypercholesterolemia, unspecified Category: Medical Plan: Avoid fried foods, chicken skin, eggs, butter margarine, pastries and meat. Be it pork or beef they have a lot of cholesterol January 2025 last blood work on atorvastatin 40 mg once a day, fenofibrate and Zetia LDL goal of less than 70 and triglyceride of less than 150 (5) Type 2 diabetes mellitus with hyperglycemia: Code(s): E11.65 - Type 2 diabetes mellitus with hyperglycemia Category: Medical Qualifiers: Diabetes mellitus nursing home insulin use: without nursing home use Qu alified Code(s): E11.65 - Type 2 diabetes mellitus with hyperglycemia Plan: Decrease the amount of carbohydrate intake, pasta, bread, rice and potatoes are all sugar and that is aside from all the sweet stuff, remember that fruits are good but they are Sweet also. Hemoglobin A1c goal of less than 7.0 on Jardiance Tradjenta (6) CKD (chronic kidney disease) stage 3, GFR 30-59 ml/min: Code(s): N18.30 - Chronic kidney disease, stage 3 unspecified Category: Medical Qualifiers: Chronic kidney disease stage 3 subtype: stage 3b (GFR 30-44) Qualified Code(s): N18.32 - Chronic kidney disease, stage 3b Plan: Keep well hydrated, NSAIDs, use of diuretic judiciously (7) COPD (chronic obstructive pulmonary disease): Comment: PATIENT HAS ONLY BORDERLINE OBSTRUCTIVE AIRWAY DISORDER AND DOES NOT REQUIRE TO USE ANY BRONCHODILATOR INHALERS. Code(s): J44.9 - Chronic obstructive pulmonary disease, unspecified Category: Medical Qualifiers: COPD type: emphysema Emphysema type: unspecified Qualified Code(s): J43.9 - Emphysema, unspecified Plan: Stable (8) JITENDRA on CPAP: Comment: Known case of obstructive sleep apnea since 2017. Has been using CPAP very regularly all this time. He does have new CPAP device however this is still not transmitting the data for compliance. He has to send the chip, to DME. According to his statement he uses very regularly and he is benefiting. Code(s): G47.33 - Obstructive sleep apnea (adult) (pediatric); Z99.89 - Dependence on other enabling machines and devices Category: Medical Plan: Continue to use the CPAP more than 4 hours a night and benefits from this. Plan History of Present Illness The patient is an 79-year-old male presenting for management of multiple chronic conditions, primarily uncontrolled diabetes mellitus. He has a history of being overweight, coronary artery disease, hypertension, hypercholesterolemia, congestive heart failure, and atrial fibrillation. He also has a history of bilateral carotid disease status post endarterectomy in 2022. For his atrial fibrillation, he is treated with amiodarone and Eliquis for anticoagulation. Due to significant conduction issues caused by amiodarone, cardiology referred him to electrophysiology in February for consideration of an ablation or pacemaker placement. His pulmonary history includes COPD, for which he does not use his prescribed bronchodilators, and obstructive sleep apnea, for which he is compliant with CPAP for more than 4 hours a night and reports benefit. Renal and urologic history is significant for stage 3 chronic kidney disease and a history of acute kidney injury secondary to volume depletion from high-dose diuretics, which were subsequently held. He follows with nephrology, and his creatinine has been stable at 1.57. He also follows with urology for bladder outlet obstruction and is on Toviaz. Regarding his diabetes mellitus, his HbA1c in April was 9.1%, a slight improvement from a prior 9.7%, but still well above the goal of less than 7.0%. His current regimen includes Jardiance 10 mg and Tradjenta 5 mg. The patient reports making some dietary modifications, such as avoiding sugary drinks, but notes that his physical activity is reduced. Other history includes chronic low back pain with a stimulator, chronic mild anemia, and chronically elevated liver enzymes. He has a history of shingles and experiences ongoing annoying pain. Health Maintenance - The patient follows with specialists including pulmonary, podiatry, ne phrology, urology, and cardiology. - Folic acid supplementation adjusted to once daily from twice daily. - Vitamin B12 and Vitamin D3 supplementation discussed and continued. - Dietary counseling provided to eat whole fruits instead of juice and avoid high-sugar foods. - Advised to maintain hydration, use diuretics judiciously, and avoid NSAIDs to protect kidney function. - Lipid management: LDL goal is < 70 mg/dL; last LDL in January was 54 mg/dL on atorvastatin 40 mg. Social History - Functional Status: Reports his physical movements are less than before. - Nutrition: The patient states he has made some changes to his diet, such as avoiding sugary drinks and syrup, but admits he does not read food labels and eats foods that taste good. - Home Support: The patient receives assistance from a Brim Pouncer (WATERPROOF BAG CUTTING MACHINE OPERATOR), but there is a current issue with the service. Review of Systems - Constitutional: Reports feeling okay. - Neurological: Reports persistent, annoying pain related to a history of shingles. Physical Exam - Respiratory: Lungs are clear to auscultation. Results - Blood work from May 21: - Hemoglobin A1c: 9.1% - Blood Sugar: 209 mg/dL - Creatinine: 1.57 mg/dL - Electrolytes: Normal - Blood work from February 08: - Anemia: Mild, chronic - Electrolytes: Good - Liver Enzymes: Elevated, but not new - LDL Cholesterol: 54 mg/dL Plan Patient was informed and verbally consented to the use of an ambient scribe for clinic note documentation during this visit. 1. Type 2 Diabetes Mellitus, Uncontrolled The patient's HbA1c remains elevated at 9.1%, significantly above the target of less than 7.0%, despite treatment with Jardiance 10 mg and Tradjenta 5 mg. The plan is to increase Jardiance to 25 mg daily. After discussion, the patient ag samreen to attempt a trial of a weekly injectable GLP-1 agonist, and a prescription will be sent to insurance to determine coverage. If the new injectable medication is started, Tradjenta will be discontinued. Dietary counseling was reinforced, emphasizing avoidance of sugary foods and choosing whole fruits over juices. 2. Atrial Fibrillation The patient is on amiodarone, which is causing significant conduction issues. He will continue amiodarone and anticoagulation with Eliquis. He has been referred to an motors and controls tester to discuss further management, with options including an ablation or pacemaker placement. 3. Chronic Kidney Disease, Stage 3 The patient's chronic kidney disease is stable, with a recent creatinine of 1.57. Advised to continue judicious use of diuretics, stay well-hydrated, and avoid NSAIDs. 4. Hypercholesterolemia Cholesterol is well-controlled with an LDL of 54, meeting the goal of less than 70 on atorvastatin 40 mg daily. The plan is to continue the current medication regimen. 5. Obstructive Sleep Apnea The patient reports benefiting from CPAP therapy. He will continue to use his CPAP for more than 4 hours per night. 6. Chronic Obstructive Pulmonary Disease The patient follows with a blanket inspector for his COPD but reports not using his bronchodilator inhalers. Continue follow-up with his client specialist. Discussion Notes I reviewed the patient's multiple active medical issues. The main focus was his uncontrolled type 2 diabetes, with an HbA1c of 9.1%. I explained that his current oral regimen is insufficient and recommended increasing his Jardiance from 10 mg to 25 mg. We discussed adding a weekly injectable medication; while he was initially hesitant, he agreed to let me send a prescription to insurance to check for coverage. I instructed him to discontinue Tradjenta if the injectable medication is started. I also discussed the cardiology referral to electrophysiology regarding his amiodarone-induced conduction issues. I explained the options being considered are an ablation procedure versus pacemaker placement to allow for continued safe use of his medication. We also reviewed his vitamin intake, and I advised he can reduce his folic acid dose to once daily. I reinforced the importance of medication adherence, lifestyle modifications, and continued specialist follow- up. Patient Instructions - I am increasing your Jardiance dose to 25 mg once a day. You can take two of your 10 mg pills together each day until you get the new prescription filled. - We discussed adding a new shot for your diabetes that you would take once a week. I will send this to your insurance to see if it is covered. If you start this new shot, you should stop taking your Tradjenta pill. - Continue to take your other medications as prescribed. - For your diet, it is better to eat a whole fruit, like an apple, instead of drinking apple juice. This helps control your sugar better. - You can reduce your folic acid dose to one pill per day instead of two. - Only use your water pills (diuretics) when needed. Make sure to drink plenty of water and avoid pain medicines like ibuprofen or naproxen (Aleve) to protect your kidneys. - Continue using your CPAP machine every night for your sleep apnea. - Follow up with your heart rhythm specialist (electrophysiology) to discuss next steps for your heart, which might include a procedure or a pacemaker. - Please let me know about the letter you received regarding your personal chef (WATERPROOF BAG CUTTING MACHINE OPERATOR) so I can help if needed. Medications: New tirzepatide (Mounjaro) for 4 weeks 2.5 mg (0.5 mL) subcut QWEEK 2 mL 2RF E11.65 - Type 2 diabetes mellitus with hyperglycemia Changed From empagliflozin (Jardiance) 10 mg PO DAILY 90 days 90 tabs 0RF E11.65 - Type 2 diabetes mellitus with hyperglycemia To empagliflozin 25 mg PO DAILY 90 tabs 0RF 90 days E11.65 - Type 2 diabetes mellitus with hyperglycemia Discontinued 2 linagliptin (Tradjenta) Discontinued Reason: Doctor's Order 5 mg PO DAILY 90 tabs 3RF
== END 2025-05-28 16:27 | disposition home or self-care (01) ==
LOC: HO.HMCH 15:25
PROVIDERS: PCP Internal Medicine; Visit Provider Internal Medicine
DX: I50.32 Chronic diastolic (congestive) heart failure (principal); I48.0 Paroxysmal atrial fibrillation; E11.65 Type 2 diabetes mellitus with hyperglycemia; N18.32 Chronic kidney disease, stage 3b; I25.10 Atherosclerotic heart disease of native coronary artery without angina pectoris; E78.00 Pure hypercholesterolemia, unspecified; G47.33 Obstructive sleep apnea (adult) (pediatric); Z99.89 Dependence on other enabling machines and devices

== ENCOUNTER → 2025-05-28 15:24 | Outpatient (BNVA) | payer MEDICARE, SELFPAY | PROVIDERS: PCP Internal Medicine; Visit Provider Internal Medicine | DX: E11.22 Type 2 diabetes mellitus with diabetic chronic kidney disease (principal); E11.65 Type 2 diabetes mellitus with hyperglycemia; I13.0 Hypertensive heart and chronic kidney disease with heart failure and stage 1 through stage 4 chronic kidney disease, or unspecified chronic kidney disease; I50.32 Chronic diastolic (congestive) heart failure; D63.1 Anemia in chronic kidney disease; N18.32 Chronic kidney disease, stage 3b; I48.0 Paroxysmal atrial fibrillation; E78.00 Pure hypercholesterolemia, unspecified; J43.9 Emphysema, unspecified; G47.33 Obstructive sleep apnea (adult) (pediatric); M54.50 Low back pain, unspecified; G89.29 Other chronic pain; R74.01 Elevation of levels of liver transaminase levels; Z79.01 Long term (current) use of anticoagulants; Z79.85 Long-term (current) use of injectable non-insulin antidiabetic drugs; Z79.899 Other long term (current) drug therapy; Z86.19 Personal history of other infectious and parasitic diseases; Z86.79 Personal history of other diseases of the circulatory system; Z96.82 Presence of neurostimulator; Z98.62 Peripheral vascular angioplasty status; Z99.89 Dependence on other enabling machines and devices | CPT/HCPCS: 99212 ==